=== PATIENT | male | born 1950 | race Caucasian/White ===

== ENCOUNTER 2019-02-16 18:37 | Inpatient (IN) | payer OTHER, BC ==
--- NOTE | 2019-02-16 19:11 | PDOC ---
History of Present Illness - General Chief Complaint: Altered Mental Status Stated Complaint: BLOOD SUGAR PROBLEM Time Seen by Provider: 02/16/19 19:11 History Source: Patient Exam Limitations: Clinical Condition - History of Present Illness Initial Comments: 68 year old male with PMH IDDM, CKD, CAD, obesity, bipolar disorder BIBA to ED after being found down for unknown amount of days. Pt is alert to person, able to tell me he is in pain, but cannot specify where, does not always answer questions when asked. PCP: Irasema Daniels ROS: unable to be performed 2/2 pt confusion PE Constitutional: Well-nourished, Well-developed, appearing stated age. HEENT: head is normocephalic, atraumatic. no scalp hematoma. EOMI. PERRLA. Neck: supple. Full ROM. no midline C-spine tenderness to palpation. Cardiovascular: regular heart rhythm. no murmurs. no pericardial friction rub. Respiratory: clear to auscultation bilaterally. no crackles, rhonchi or wheezing. no stridor. Gastrointestinal: soft, nontender. normal bowel sounds. no rebound, guarding, masses. Extremities: peripheral pulses intact. no lower extremity edema. Back: no midline t-spine or L-spine tenderness to palpation. Pelvis: no tenderness to bilateral hips. LE equal in length without external rotation. Neurological: CN 2-12 grossly intact. no facial drooping. 5/5 strength LLE. LLE drift hits the bed. RLE no effort againsty gravity. RUE no effort against gravity. Psych: awake, alert, oriented x1. follows simple commands. Skin: 4x4 cm necrotic circular pressure ulcer intergluteal area. skin abrasion to right forearm area. skin abrasion to left knee. necrotic ulcer to right hip. NIH Stroke Scale - Initial Evaluation Level of consciousness: Alert Ask patient the month and their age: Both incorrect Ask patient to open & close eyes; make fist and let go: Obeys both correctly Best gaze (horizontal eye movement): Normal Visual field testing: No visual field loss Facial paresis (Show teeth/raise eyebrows/close eyes tight): Normal symmetrical movement Motor Function: Left Arm: Normal Motor Function: Right Arm: No effort against gravity Motor Function: Left Leg: Drift Motor Function: Right Leg: No effort against gravity Limb Ataxia: No ataxia Sensory(Use pinprick test arms,legs,trunk,face/side to side): Severe to total sensory loss Best language (Describe picture, name items, read sentences): Severe aphasia Dysarthria (read several words): Mild to moderate slurring of words Extinction and Inattention: No abnormality - Total Score NIH Stroke Scale Score: 14 Past History - Past Medical History Allergies/Adverse Reactions: Allergies Allergy/AdvReac Type Severity Reaction Status Date / Time No Allergy Information Allergy Verified 02/16/19 19:16 Available Home Medications: Ambulatory Orders Allopurinol [Zyloprim -] 200 mg DAILY 02/17/19 Amlodipine Besylate 10 mg PO DAILY 02/17/19 Diazepam [Valium] 10 mg PO TID 02/17/19 Insulin Aspart [Novolog] 2 units TID 02/17/19 Insulin Glargine,Hum.rec.anlog [Toujeo Solostar] 95 unit HS 02/17/19 Lamotrigine 100 mg DAILY 02/17/19 Losartan/Hydrochlorothiazide [Losartan-Hctz 100-12.5 mg Tab] 1 tablet DAILY Quetiapine Fumarate [Seroquel -] 200 mg PO HS 02/17/19 - Psycho Social/Smoking Cessation Hx Smoking History: Unknown if ever smoked *Physical Exam - Vital Signs Last Vital Signs Temp Pulse Resp BP Pulse Ox 98.5 F 101 H 20 139/88 94 L 02/16/19 19:00 02/16/19 19:00 02/16/19 19:00 02/16/19 19:00 02/16/19 19:00 ED Treatment Course - LABORATORY CBC & Chemistry Diagram: 02/17/19 05:38 02/17/19 16:15 Medical Decision Making - Medical Decision Making 68 year old male with above PMH presented to ED via ambulance after being found down. Initial Vital Signs Temp Pulse Resp BP Pulse Ox 98.5 F 101 H 20 139/88 94 L 02/16/19 19:00 02/16/19 19:00 02/16/19 19:00 02/16/19 19:00 02/16/19 19:00 Afebrile. Tachycardia. No tachypnea. Hypertensive. Mild hypoxia on room air. Labs ordered: CBC, CMP, Mag, Phos, CK, Trop, PT/PTT/INR, T&S, ETOH, salicyclate , acetaminophen, Imaging ordered: CXR, PXR, CT head, CT cervical spine Medications ordered: normal saline 1000 cc once, tylenol IV EKG performed at 1925: rate 98. regular rhythm. normal axis. normal intervals. flipped T V6/II/III//aVL Would not give tpa, unknown time of onset. 02/16/19 20:31 Dr. Pollock from [facility] called to report negative for stroke or anything acute. 02/16/19 20:41 02/16/19 02/16/19 02/16/19 19:30 19:30 19:30 WBC 12.3 H RBC 5.54 Hgb 17.4 H Hct 53.5 H MCV 96.7 H MCH 31.5 MCHC 32.6 RDW 14.1 Plt Count 226 MPV 10.2 Absolute Neuts (auto) 11.0 H Neutrophils % 89.2 H Lymphocytes % 2.7 L Monocytes % 7.4 Eosinophils % 0.2 Basophils % 0.5 Nucleated RBC % 0 PT with INR 15.40 H INR 1.30 H PTT (Actin FS) 30.8 Lactic Acid 1.8 02/16/19 02/16/19 02/16/19 19:30 19:30 19:30 VBG pH 7.28 L POC VBG pCO2 41.3 POC VBG pO2 < 49 H VBG HCO3 18.8 L VBG O2 Sat (Tonny) 53.6 L VBG Base Excess -7.4 L Magnesium 4.7 H Salicylates < 1.7 L Leukocytosis with left shift. Metabolic acidosis. 02/16/19 20:49 Dr. Barrera consulted, recommended medical management, MRI. MRI ordered. 02/16/19 21:12 Ct cervical spine negative for acute fracture, dislocation. 02/16/19 21:15 CMP Sodium 145 mmol/L (136-145) 02/16/19 19:30 Potassium 5.6 mmol/L (3.5-5.1) H 02/16/19 19:30 Chloride 111 mmol/L (98-107) H 02/16/19 19:30 Carbon Dioxide 20 mmol/L (21-32) L 02/16/19 19:30 Anion Gap 15 MMOL/L (8-16) 02/16/19 19:30 BUN 272.9 mg/dL (7-18) H* 02/16/19 19:30 Creatinine 6.7 mg/dL (0.55-1.3) H 02/16/19 19:30 Est GFR (CKD-EPI)AfAm 9.01 02/16/19 19:30 Est GFR (CKD-EPI)NonAf 7.78 02/16/19 19:30 Random Glucose 381 mg/dL (74-106) H 02/16/19 19:30 Lactic Acid 1.8 mmol/L (0.4-2.0) 02/16/19 19:30 Calcium 9.5 mg/dL (8.5-10.1) 02/16/19 19:30 Phosphorus > 9.0 mg/dL (2.5-4.9) H* 02/16/19 19:30 Magnesium 4.7 mg/dL (1.8-2.4) H 02/16/19 19:30 Total Bilirubin 1.0 mg/dL (0.2-1) 02/16/19 19:30 AST 25 U/L (15-37) 02/16/19 19:30 ALT 32 U/L (13-61) 02/16/19 19:30 Alkaline Phosphatase 64 U/L (45-117) 02/16/19 19:30 Creatine Kinase > 1000 U/L (26-308) H 02/16/19 19:30 Troponin I 0.05 ng/ml (0.00-0.05) 02/16/19 19:30 Total Protein 6.6 g/dl (6.4-8.2) 02/16/19 19:30 Albumin 2.7 g/dl (3.4-5.0) L 02/16/19 19:30 Triglycerides 354 mg/dL (0-150) H 02/16/19 19:30 Cholesterol 227 mg/dL (50-200) H 02/16/19 19:30 Total LDL Cholesterol 143 mg/dL (5-100) H 02/16/19 19:30 HDL Cholesterol 37 mg/dL (40-60) L 02/16/19 19:30 Acute renal failure Rhabdomyolysis. Dr. Sd pearce. 02/16/19 21:38 Dr. Beaver recommended continued IVF hydration, Chou, repeat labs after next liter, trend CK, no dialysis now 2/2 volume down. 11/17/19 21:49 Pt failed dysphagia screening. ASA chew canceled. ASA 300 mg MA ordered. NPO Pt now in atrial fibrillation. EKG ordered. Medications ordered: Diltiazem 10 mg IV once, Diltiazem gtt, Heparin bolus, Heparin gtt -Pt is NPO so now needs drip for rate control Signout given to admitting team. EKG performed at 2051: rate 136, irregularly irregular rhythm, normal axis, nonspecific ST changes. 02/16/19 22:10 I spoke with [facility] CL[facility] in ICU, who accepted the patient for ICU. 02/16/19 23:37 2nd line placed in LUE by RN. 3rd line placed in RUE with US guidance by me. 02/17/19 00:03 VBG - pH improved from 7.28 to 7.31 02/17/19 00:22 HR 136 Diltiazem drip increased from 5 mg/hour to 10 mg/hour. 02/17/19 01:01 Diltiazem 15 mg IV push once given. CMP Sodium 147 mmol/L (136-145) H 02/16/19 22:51 Potassium 5.0 mmol/L (3.5-5.1) 02/16/19 22:51 Chloride 114 mmol/L (98-107) H 02/16/19 22:51 Carbon Dioxide 20 mmol/L (21-32) L 02/16/19 22:51 Anion Gap 13 MMOL/L (8-16) 02/16/19 22:51 BUN 255.5 mg/dL (7-18) H* 02/16/19 22:51 Creatinine 6.2 mg/dL (0.55-1.3) H 02/16/19 22:51 Est GFR (CKD-EPI)AfAm 9.90 02/16/19 22:51 Est GFR (CKD-EPI)NonAf 8.54 02/16/19 22:51 Random Glucose 347 mg/dL (74-106) H 02/16/19 22:51 Calcium 9.2 mg/dL (8.5-10.1) 02/16/19 22:51 Phosphorus 8.6 mg/dL (2.5-4.9) H 02/16/19 22:51 Magnesium 4.2 mg/dL (1.8-2.4) H 02/16/19 22:51 Creatine Kinase 1169 U/L (26-308) H 02/16/19 22:51 Troponin I 0.04 ng/ml (0.00-0.05) 02/16/19 22:51 Beta-Hydroxybutyrate 5.5 mg/dL (0.2-2.8) H 02/16/19 22:51 Discharge - Discharge Information Problems reviewed: Yes Clinical Impression/Diagnosis: Rhabdomyolysis, Stroke, Renal failure, Uremia, Leukocytosis Condition: Stable - Admission Yes - Follow up/Referral - Patient Discharge Instructions - Post Discharge Activity
[2019-02-16] MEDS ORDERED: SODIUM CHLORIDE 1,000 ML IV STA ×2 (19:13→21:23)
[2019-02-16] MEDS ORDERED: ACETAMINOPHEN 1000 MG/100 ML VIAL (NON FORMULARY) IVPB ONE (19:35)
[2019-02-16] MEDS ORDERED: ACETAMINOPHEN INJECTION 100 ML IVPB ONE (20:00)
[2019-02-16 20:01] LABS: BASO % 0.5 % (0-2.0); EOS % 0.2 % (0-4.5); HEMATOCRIT 53.5 % (35.4-49); HEMOGLOBIN 17.4 GM/dL (11.7-16.9); LYMPH % 2.7 % (8-40); MCH 31.5 pg (25.7-33.7); MCHC 32.6 g/dl (32.0-35.9); MEAN CELL VOLUME 96.7 fl (80-96); MEAN PLT VOLUME 10.2 fl (7.5-11.1); MONO % 7.4 % (3.8-10.2); NEUT % 89.2 % (42.8-82.8); PLATELET COUNT 226 K/MM3 (134-434); RBC 5.54 M/mm3 (4.00-5.60); RDW 14.1 % (11.9-15.9); WHITE BLOOD COUNT 12.3 K/mm3 (4.0-10.0)
[2019-02-16 20:03] LABS: VENOUS PC02 41.3 mmHg (38-52); VENOUS PH 7.28 (7.31-7.41)
[2019-02-16] MEDS ORDERED: BACITRACIN 0.9 GM PACKET ONE (20:07)
[2019-02-16 20:08] LABS: VENOUS PO2 < 49 mmHg (28-48)
[2019-02-16 20:20] LABS: MAGNESIUM 4.7 mg/dL (1.8-2.4)
[2019-02-16 20:21] LABS: INR 1.3 (0.83-1.09); PROTHROMBIN TIME (PATIENT) 15.4 SEC (9.7-13.0)
[2019-02-16 20:23] LABS: ACTIVATED PTT 30.8 SECONDS (25.2-36.5)
[2019-02-16] MEDS ORDERED: ASPIRIN 81 MG CHEWABLE TABLETS PO ONE (20:50)
[2019-02-16 20:56] LABS: ALBUMIN 2.7 g/dl (3.4-5.0); ALK PHOS 64 U/L (45-117); ANION GAP 15 MMOL/L (8-16); CALCIUM 9.5 mg/dL (8.5-10.1); CHLORIDE 111 mmol/L (98-107); CHOLESTEROL 227 mg/dL (50-200); CO2 20 mmol/L (21-32); CREATININE 6.7 mg/dL (0.55-1.3); GLUCOSE,RANDOM 381 mg/dL (74-106); HDL CHOLESTEROL 37 mg/dL (40-60); LDL CHOLESTEROL (ONLY SJRH) 143 mg/dL (5-100); POTASSIUM 5.6 mmol/L (3.5-5.1); SGOT/AST 25 U/L (15-37); SGPT/ALT 32 U/L (13-61); SODIUM 145 mmol/L (136-145); TOT PROT 6.6 g/dl (6.4-8.2); TRIGLYCERIDES 354 mg/dL (0-150)
[2019-02-16 20:58] LABS: BLOOD UREA NITROGEN 272.9 mg/dL (7-18); PHOSPHOROUS > 9.0 mg/dL (2.5-4.9)
[2019-02-16 21:18] LABS: PLATELET ESTIMATE ADEQUATE
[2019-02-16] MEDS ORDERED: ASPIRIN 81 MG CHEWABLE TABLETS ONE (21:41)
[2019-02-16] MEDS ORDERED: ASPIRIN 300 MG SUPP.RECT PR ONE (21:47)
[2019-02-16] MEDS ORDERED: dilTIAZem HCL 50 MG/10 ML - 10 ML VIAL IVPUSH ONE ×2 (22:07→23:58)
[2019-02-16] MEDS ORDERED: DILTIAZEM INJECTION 125 MG in SODIUM CHLORIDE 100 ML IVPB SCH (22:15)
--- NOTE | 2019-02-16 22:33 | PN ---
Teaching Attending Note Name of Resident: Anum Crow ATTENDING PHYSICIAN STATEMENT I saw and evaluated the patient. I reviewed the resident's note and discussed the case with the resident. I agree with the resident's findings and plan as documented. SUBJECTIVE: 68-year-old male with a history of hypertension insulin-dependent diabetes dyslipidemia and bipolar disorder brought into hospital by EMS after being found down on ground by family member at home. Patient was down for unknown length of time. Patient offers a very limited history at this time. OBJECTIVE: Last Vital Signs Temp Pulse Resp BP Pulse Ox 98.5 F 122 H 22 H 120/99 95 02/16/19 20:45 02/17/19 00:01 02/17/19 00:01 02/17/19 00:01 02/17/19 00:01 GENERAL: Morbidly obese, not in acute distress, appears comfortable HEENT: Normocephalic, atraumatic. PERRLA, EOMI. No conjunctival pallor. Sclera are non- icteric. Moist mucous membranes. Oropharynx is clear. NECK: Supple. Full ROM. No JVD. Carotid pulses 2+ and symmetric, without bruits. No thyromegaly. No lymphadenopathy. CARDIOVASCULAR: Regular rate and rhythm. No murmurs, rubs, or gallops. Distal pulses are 2+ and symmetric. PULMONARY: No evidence of respiratory distress. Lungs clear to auscultation bilaterally. No wheezing, rales or rhonchi. ABDOMINAL: Soft. Non-tender. Non-distended. No rebound or guarding. No organomegaly. Normoactive bowel sounds. MUSCULOSKELETAL Normal range of motion at all joints. No bony deformities or tenderness. No CVA tenderness. EXTREMITIES: No cyanosis. No clubbing. No edema. No calf tenderness. SKIN: Left knee abrasion, Intertrigo NEUROLOGICAL: Difficult to assess patient due to altered mental statuspatient is not oriented to place or time. Appears to have right upper and lower extremity weakness relative to left side however difficult to assess accurately. Follow some commands Abnormal Lab Results 02/16/19 02/16/19 02/16/19 19:30 19:30 19:30 WBC 12.3 H Hgb 17.4 H Hct 53.5 H MCV 96.7 H Absolute Neuts (auto) 11.0 H Neutrophils % 89.2 H Neutrophils % (Manual) 92.0 H Lymphocytes % 2.7 L Lymphocytes % (Manual) 4.0 L Monocytes % (Manual) 0 L PT with INR 15.40 H INR 1.30 H VBG pH POC VBG pCO2 POC VBG pO2 VBG HCO3 VBG O2 Sat (Tonny) VBG Base Excess Sodium Potassium 5.6 H Chloride 111 H Carbon Dioxide 20 L BUN 272.9 H* Creatinine 6.7 H Random Glucose 381 H Phosphorus > 9.0 H* Magnesium Creatine Kinase 1101 H CK-MB (CK-2) Total Protein Albumin 2.7 L Triglycerides 354 H Cholesterol 227 H Total LDL Cholesterol 143 H HDL Cholesterol 37 L Beta-Hydroxybutyrate Urine Protein Urine Glucose (UA) Urine Blood Ur Random Sodium Ur Random Chloride Salicylates 02/16/19 02/16/19 02/16/19 19:30 19:30 19:30 WBC Hgb Hct MCV Absolute Neuts (auto) Neutrophils % Neutrophils % (Manual) Lymphocytes % Lymphocytes % (Manual) Monocytes % (Manual) PT with INR INR VBG pH 7.28 L POC VBG pCO2 POC VBG pO2 < 49 H VBG HCO3 18.8 L VBG O2 Sat (Tonny) 53.6 L VBG Base Excess -7.4 L Sodium Potassium Chloride Carbon Dioxide BUN Creatinine Random Glucose Phosphorus Magnesium 4.7 H Creatine Kinase CK-MB (CK-2) Total Protein Albumin Triglycerides Cholesterol Total LDL Cholesterol HDL Cholesterol Beta-Hydroxybutyrate Urine Protein Urine Glucose (UA) Urine Blood Ur Random Sodium Ur Random Chloride Salicylates < 1.7 L 02/16/19 02/16/19 02/17/19 22:51 22:51 00:30 WBC Hgb Hct MCV Absolute Neuts (auto) Neutrophils % Neutrophils % (Manual) Lymphocytes % Lymphocytes % (Manual) Monocytes % (Manual) PT with INR INR VBG pH POC VBG pCO2 33.6 L POC VBG pO2 60.7 H VBG HCO3 16.4 L VBG O2 Sat (Tonny) 87.0 H VBG Base Excess -8.5 L Sodium 147 H Potassium Chloride 114 H Carbon Dioxide 20 L BUN 255.5 H* Creatinine 6.2 H Random Glucose 347 H Phosphorus 8.6 H Magnesium 4.2 H Creatine Kinase 1169 H CK-MB (CK-2) 4.1 H Total Protein Albumin Triglycerides Cholesterol Total LDL Cholesterol HDL Cholesterol Beta-Hydroxybutyrate 5.5 H Urine Protein 1+ H Urine Glucose (UA) 2+ H Urine Blood 3+ H Ur Random Sodium Ur Random Chloride Salicylates 02/17/19 02/17/19 00:30 00:36 WBC Hgb Hct MCV Absolute Neuts (auto) Neutrophils % Neutrophils % (Manual) Lymphocytes % Lymphocytes % (Manual) Monocytes % (Manual) PT with INR INR VBG pH POC VBG pCO2 POC VBG pO2 VBG HCO3 VBG O2 Sat (Tonny) VBG Base Excess Sodium 147 H Potassium 5.2 H Chloride 113 H Carbon Dioxide 20 L BUN 252.3 H* Creatinine 6.2 H Random Glucose 329 H Phosphorus Magnesium Creatine Kinase CK-MB (CK-2) Total Protein 5.8 L Albumin 2.3 L Triglycerides Cholesterol Total LDL Cholesterol HDL Cholesterol Beta-Hydroxybutyrate Urine Protein Urine Glucose (UA) Urine Blood Ur Random Sodium 35 L Ur Random Chloride 24 L Salicylates Imaging studies reviewed ASSESSMENT AND PLAN: Critically ill 68-year-old male with renal failure. Uncertain if acute or chronic as patient is here for the first time inpatient and there are no previous chemistry results for comparison. Unknown etiology at this time. Differential diagnosis includes prerenal cause And ATN secondary to rhabdo.Noted to have hyperphosphatemia, hyperkalemia, metabolic acidosis and altered mental status which are all likely secondary to underlying renal failure.Patient was thought to have right-sided weakness upon initial presentation and underwent head CT which was negative for any acute findings. Altered mental status may be secondary to uremia. CVA should be ruled out. Found to have atrial fibrillation on EKG suspected to be a new arrhythmia although cannot be certain at this time. Severe hyperglycemia with high anion gap metabolic acidosis and positive ketones and serum suggestive of DKA.Mild rhabdomyolysis as patient has been non-ground for some period time. Admit to ICU Renal was consulted alreadyrecommendations were appreciated Accurate I's and O's and daily weights Urine lites UA Chou catheter Avoid any nephrotoxins Phosphate binder Correct electrolyte derangements Renal sonogram Calcitriol #DKA Start insulin drip BGM q. one hour If dropping glucose below 200 g/dL would switch fluids to D5W half NS #Right-sided weakness N.p.o. Neurology evaluation Carotid duplex Transthoracic echo Consider brain MRI PT evaluation #Atrial fibrillation Start heparin drip If RVR would start on diltiazem drip Cardiology evaluation TSH Urine toxicology screen #Left knee abrasion Would administer Tdap 40 minutes spent caring for this critically ill patient
[2019-02-16] MEDS ORDERED: HEPARIN NA (PORCINE) 5,000 UNITS/ML 1ML VIAL IVPUSH PRN ×2 (22:49→22:51)
--- NOTE | 2019-02-16 22:53 | HP ---
CHIEF COMPLAINT: CVA PCP: unknown, psychiatrist Dr. Steve Navarro HISTORY OF PRESENT ILLNESS: Mr. Burnette is a 68 y/o man with a pmhx of kidney disease, DM, HTN, HLD, obesity, bipolar disorder, depression, and anxiety who is BIBA after being found down in his apt for an unknown period of time. History obtained from pt's brother as pt was confused on exam and was unable to answer questions. Per the patient's brother, the pt had an appointment with a friend today and when he did not show up the pt's friend called the police to do a wellness check (the pt did not name the friend). Police found the pt down in his apartment and he was brought to the hospital by EMS, unclear how long the pt was down for. Per the patient's brother, the pt is normally fully independent and able to complete all his ADLs unassisted. He lives alone in an apartment in [facility] and per the brother the pt keeps up with all his doctor appointments and takes his medications as prescribed. The pt's brother was unable to state what medicines his brother uses or which pharmacy his brother uses however states that his brother's psychiatrist is Dr. Steve Navarro and that he may know the answers to these questions. The brother reports he last saw the patient about 3 months ago. ER course was notable for: (1) EKG performed at 1924: rate 98. regular rhythm. normal axis. normal intervals. flipped T V6/II/III//aVL> EKG performed at 2051: rate 136, irregularly irregular rhythm, normal axis, nonspecific ST changes. (2) Pt failed dysphagia screening, ASA 300 MN given (3) Dr. Barrera consulted, appreciate recommendations, Dr. Beaver consulted recommends continued IVF hydration, Saez, repeat labs after next liter, no dialysis now 2/2 volume down Recent Travel: denies (per pt brother). PAST MEDICAL HISTORY: kidney disease, DM, HTN, HLD, obesity, bipolar disorder, depression, and anxiety PAST SURGICAL HISTORY: appendectomy when younger, no other sx per brother Social History: Per the patient's brother Smoking: denies Alcohol: denies Drugs: denies Allergies No Allergy Information Available Allergy (Verified 02/16/19 19:16) HOME MEDICATIONS: REVIEW OF SYSTEMS: UNABLE TO OBTAIN DUE TO PT'S MENTAL STATUS CONSTITUTIONAL: Absent: fever, chills, diaphoresis, generalized weakness, malaise, loss of appetite, weight change HEENT: Absent: rhinorrhea, nasal congestion, throat pain, throat swelling, difficulty swallowing, mouth swelling, ear pain, eye pain, visual changes CARDIOVASCULAR: Absent: chest pain, syncope, palpitations, irregular heart rate, lightheadedness , peripheral edema RESPIRATORY: Absent: cough, shortness of breath, dyspnea with exertion, orthopnea, wheezing, stridor, hemoptysis GASTROINTESTINAL: Absent: abdominal pain, abdominal distension, nausea, vomiting, diarrhea, constipation, melena, hematochezia GENITOURINARY: Absent: dysuria, frequency, urgency, hesitancy, hematuria, flank pain, genital pain MUSCULOSKELETAL: Absent: myalgia, arthralgia, joint swelling, back pain, neck pain SKIN: Absent: rash, itching, pallor HEMATOLOGIC/IMMUNOLOGIC: Absent: easy bleeding, easy bruising, lymphadenopathy, frequent infections ENDOCRINE: Absent: unexplained weight gain, unexplained weight loss, heat intolerance, cold intolerance NEUROLOGIC: Absent: headache, focal weakness or paresthesias, dizziness, unsteady gait, seizure, mental status changes, bladder or bowel incontinence PSYCHIATRIC: Absent: anxiety, depression, suicidal or homicidal ideation, hallucinations. PHYSICAL EXAMINATION Vital Signs - 24 hr 02/16/19 02/16/19 02/16/19 19:00 20:45 22:23 Temperature 98.5 F 98.5 F Pulse Rate 101 H Pulse Rate [ 92 H 59 L Left] Respiratory 20 20 26 H Rate Blood Pressure 139/88 Blood Pressure 185/150 H 111/83 [Left Arm] O2 Sat by Pulse 94 L 94 L 95 Oximetry (%) GENERAL: Awake, alert, and oriented only to self , in no acute distress. NIHSS at least 14 given his inability to state his age/ month, inability to move his R arm or leg, L leg drift, complete loss of sensation in R arm, aphasia, auditory and visual extinction/ inattention. He was unable to comply with EOM, visual field, ataxia, portions of the stroke scale because he was unable to follow all commands. HEAD: Normal with no signs of trauma. EYES: Pupils equal, round and reactive to light, extraocular movements intact, sclera anicteric, conjunctiva clear. No lid lag. EARS, NOSE, THROAT: Ears normal, nares patent, oropharynx clear without exudates. Extremely dry membranes with crusting around mouth. NECK: Normal range of motion, supple without lymphadenopathy, JVD, or masses. LUNGS: Breath sounds equal, clear to auscultation bilaterally. No wheezes, and no crackles. No accessory muscle use. HEART: Regular rate irregularly irregular rhythm, normal S1 and S2 without murmur. Ecchymosis noted on R side of chest. ABDOMEN: Soft, not distended, normoactive bowel sounds, skin breakdown on R side of abdomen with sloughing wounds and ecchymosis, very TTP, guarding, no rebound, no masses, reducible umbilical hernia. MUSCULOSKELETAL: Normal range of motion at all joints. No bony deformities or tenderness. DTRs symmetric in upper and lower extremities. UPPER EXTREMITIES: 2+ pulses, warm, well-perfused. No cyanosis. No clubbing. No peripheral edema. Cuts on bilateral elbows R>L. 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 Full strength in LUE. LOWER EXTREMITIES: 2+ pulses, warm, well-perfused. No calf tenderness. No peripheral edema. Cuts on bilateral knees/ dailey L>R. Pt unable to lift R leg from bed, pt can lift L leg however drifts down to bed during 5s hold. NEUROLOGICAL: unable to asess due to patient's mental status PSYCHIATRIC: Cooperative. poor eye contact. SKIN: +pressure ulcer to the right hip, skin breakdown to the right side of the abdomen, Abrasions to the right side of the face. Warm and dry. Laboratory Results - last 24 hr 02/16/19 02/16/19 02/16/19 19:30 19:30 19:30 WBC 12.3 H RBC 5.54 Hgb 17.4 H Hct 53.5 H MCV 96.7 H MCH 31.5 MCHC 32.6 RDW 14.1 Plt Count 226 MPV 10.2 Absolute Neuts (auto) 11.0 H Neutrophils % 89.2 H Neutrophils % (Manual) 92.0 H Band Neutrophils % 4.0 Lymphocytes % 2.7 L Lymphocytes % (Manual) 4.0 L Monocytes % 7.4 Monocytes % (Manual) 0 L Eosinophils % 0.2 Eosinophils % (Manual) 0.0 Basophils % 0.5 Basophils % (Manual) 0.0 Nucleated RBC % 0 Platelet Estimate Adequate PT with INR 15.40 H INR 1.30 H PTT (Actin FS) 30.8 VBG pH POC VBG pCO2 POC VBG pO2 VBG HCO3 VBG O2 Sat (Tonny) VBG Base Excess Sodium 145 Potassium 5.6 H Chloride 111 H Carbon Dioxide 20 L Anion Gap 15 BUN 272.9 H* Creatinine 6.7 H Est GFR (CKD-EPI)AfAm 9.01 Est GFR (CKD-EPI)NonAf 7.78 Random Glucose 381 H Lactic Acid Calcium 9.5 Phosphorus > 9.0 H* Magnesium Total Bilirubin 1.0 AST 25 ALT 32 Alkaline Phosphatase 64 Creatine Kinase 1101 H Creatine Kinase Index 0.2 CK-MB (CK-2) 2.7 Troponin I 0.05 Total Protein 6.6 Albumin 2.7 L Triglycerides 354 H Cholesterol 227 H Total LDL Cholesterol 143 H HDL Cholesterol 37 L Salicylates Acetaminophen Alcohol, Quantitative Blood Type Antibody Screen 02/16/19 02/16/19 02/16/19 19:30 19:30 19:30 WBC RBC Hgb Hct MCV MCH MCHC RDW Plt Count MPV Absolute Neuts (auto) Neutrophils % Neutrophils % (Manual) Band Neutrophils % Lymphocytes % Lymphocytes % (Manual) Monocytes % Monocytes % (Manual) Eosinophils % Eosinophils % (Manual) Basophils % Basophils % (Manual) Nucleated RBC % Platelet Estimate PT with INR INR PTT (Actin FS) VBG pH POC VBG pCO2 POC VBG pO2 VBG HCO3 VBG O2 Sat (Tonny) VBG Base Excess Sodium Potassium Chloride Carbon Dioxide Anion Gap BUN Creatinine Est GFR (CKD-EPI)AfAm Est GFR (CKD-EPI)NonAf Random Glucose Lactic Acid 1.8 Calcium Phosphorus Magnesium 4.7 H Total Bilirubin AST ALT Alkaline Phosphatase Creatine Kinase Creatine Kinase Index CK-MB (CK-2) Troponin I Total Protein Albumin Triglycerides Cholesterol Total LDL Cholesterol HDL Cholesterol Salicylates Acetaminophen Alcohol, Quantitative < 3.0 Blood Type A NEGATIVE Antibody Screen Negative 02/16/19 02/16/19 19:30 19:30 WBC RBC Hgb Hct MCV MCH MCHC RDW Plt Count MPV Absolute Neuts (auto) Neutrophils % Neutrophils % (Manual) Band Neutrophils % Lymphocytes % Lymphocytes % (Manual) Monocytes % Monocytes % (Manual) Eosinophils % Eosinophils % (Manual) Basophils % Basophils % (Manual) Nucleated RBC % Platelet Estimate PT with INR INR PTT (Actin FS) VBG pH 7.28 L POC VBG pCO2 41.3 POC VBG pO2 < 49 H VBG HCO3 18.8 L VBG O2 Sat (Tonny) 53.6 L VBG Base Excess -7.4 L Sodium Potassium Chloride Carbon Dioxide Anion Gap BUN Creatinine Est GFR (CKD-EPI)AfAm Est GFR (CKD-EPI)NonAf Random Glucose Lactic Acid Calcium Phosphorus Magnesium Total Bilirubin AST ALT Alkaline Phosphatase Creatine Kinase Creatine Kinase Index CK-MB (CK-2) Troponin I Total Protein Albumin Triglycerides Cholesterol Total LDL Cholesterol HDL Cholesterol Salicylates < 1.7 L Acetaminophen --noresult-- Alcohol, Quantitative Blood Type Antibody Screen Imaging: EXAM: CT head without contrast FINDINGS: There is cerebral atrophy. Chronic microvascular ischemic changes are noted. No acute intracranial hemorrhage or acute infarction. The visualized aspect of the paranasal sinuses and mastoid air cells are remarkable for moderate right maxillary chronic sinus changes and minimal left ethmoid and left sphenoid chronic sinus changes. No acute fracture. THIS DOCUMENT HAS BEEN ELECTRONICALLY SIGNED Ziyad Pollock MD 02/16/2019 20:26 EST M.D. EXAM: CT cervical spine without contrast Findings: Cervical spine demonstrates normal alignment. Moderate degenerative changes noted. No acute cervical spine fracture or dislocation. THIS DOCUMENT HAS BEEN ELECTRONICALLY SIGNED Ziyad Pollock MD 02/16/2019 20:45 ES ASSESSMENT/PLAN: Mr. Burnette is a 68 y/o man with a pmhx of kidney disease, DM, HTN, HLD, obesity , bipolar disorder, depression, and anxiety who is BIBA after being found down in his apt for an unknown period of time found to have new R sided weakness, NIHSS >14, in addition to SMITA on CKD and multiple electrolyte abnormalities being admitted for medical management and w/u of possible CVA in addition to tx for DKA and acute renal injury. 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 Pre-renal causes of SMITA include dehydration and rhabdomyolysis as pt was down in his home for unknown period of time, now with elevated CK and extremely dehydrated appearing on physical exam. Patient being aggressively hydrated Saez in place is making urine we will monitor strict I's and O's. Pt also noted to have hyperphosphatemia, hyperkalemia, metabolic acidosis and altered mental status which are likely 2/2 underlying renal failure. - IVF - UA - urine lytes - renal u/s - phoslo - calcitriol - saez - Avoid any nephrotoxins # Rhabdomyolysis- 2/2 being found down for unknown period of time - IVF - Trend CK # DKA- Severe hyperglycemia with high anion gap metabolic acidosis and positive ketones and serum suggestive of DKA. - BGM q1h - BMP q2h until gap closes - insulin drip @ 0.1u/kg/h - 2 large bore iv - IV 1/2NS @ 125 - If blood glucose is <250 and AG is not closed switch fluids to D5W 1/2NS - calcium gluconate 1000mg IVPB # AMS- Patient with AMS, R sided weakness, and aphasia on exam. Head CT is negative for any acute findings. Altered mental status may also be 2/2 to uremia. CVA should be ruled out. - MRI - echo - Carotid dopplers - Neuro consult, Dr. Barrera, appreciate recommendations> no acute intervention at this time, manage medically and obtain EKG - Speech pathology, appreciate reccs - fall precautions - NPO - PT eval # Afib - CHADSVASC 3, A. fib with RVR, suspected to be a new arrhythmia although cannot be certain at this time. - heparin drip - diltiazem drip for rate control - echo - cardiology consult - TSH - Utox # FEN: - IV 1/2 NS @125cc/h - monitor replete PRN - NPO while on insulin drip #PPx: - heparin drip # Dispo: admit to ICU pending closure of AG and d/c'ing insulin drip Visit type - Emergency Visit Emergency Visit: Yes ED Registration Date: 02/16/19 Care time: The patient presented to the Emergency Department on the above date and was hospitalized for further evaluation of their emergent condition. - New Patient This patient is new to me today: Yes Date on this admission: 02/17/19 - Critical Care Critical Care patient: No ATTENDING PHYSICIAN STATEMENT I saw and evaluated the patient. I reviewed the resident's note and discussed the case with the resident. I agree with the resident's findings and plan as documented. SUBJECTIVE: OBJECTIVE: ASSESSMENT AND PLAN:
[2019-02-16] MEDS ORDERED: HEPARIN NA (PORCINE) 5,000 UNITS/ML 1ML VIAL IVPUSH ONE (22:54)
[2019-02-16] MEDS ORDERED: HEPARIN - 25,000 UNIT in SODIUM CHLORIDE 495 ML IV SCH (23:00)
[2019-02-16] MEDS ORDERED: DIPHTH,PERTUSS(ACELL),TET 0.5 ML DISP.SYRIN IM ONE (23:12)
--- NOTE | 2019-02-16 23:13 | PDOC ---
Documentation entered by Mary Silver SCRIBE, acting as scribe for Figueroa Osborne MD. Figueroa Osborne MD: This documentation has been prepared by the maribelibeNadeem Lincy, SCRIBE, under my direction and personally reviewed by me in its entirety. I confirm that the documentation accurately reflects all work, treatment, procedures, and medical decision making performed by me. Attending Attestation - Resident Resident Name: Cele He - ED Attending Attestation I have performed the following: I have examined & evaluated the patient, The case was reviewed & discussed with the resident, I agree w/resident's findings & plan, Exceptions are as noted - HPI HPI: 02/16/19 19:31 The patient is a 68-year-old male pmh significant for HTN, IDDM, High chol, ? Bipolar, presents to the emergency department via EMS after family found the patient down for an unknown amount of time. The patient reports pain however, unable to specify where. Per the patient's brother at the bedside, The patient has a history of DM, Kidney issues (follows with a Button Sewer Hand at [facility], doesn't know the name), and psych issues. The brother reports he last saw the patient about 3 months ago. 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 - Physicial Exam PE: 02/16/19 19:59 Vitals: Triage vital signs reviewed General Appearance: No acute distress Head: Atraumatic Eyes: Pupils equal reactive round, extraocular movement intact Neck: Supple; No nuchal rigidity Chest Wall: Nontender Cardiac: Irregularly irregular Lungs: Clear to auscultation bilaterally, good air movement bilaterally Abdomen: Soft, nondistended, sore with skin breakdown to left abdomen. Extremities: +Patient is unable to move his right arm and leg. Patient is able to move his left arm and leg. no cyanosis, clubbing, or edema. Skin: +pressure ulcer to the right hip, skin breakdown to the right side of the abdomen, Abrasions to the right side of the face. Warm and dry. Neuro: AOX1; Unable to raise right arm and leg, follows commands. - Critical Care Time Total Critical Care Time: 90 Critical Care Statement: The care of this patient involved high complexity decision making to prevent further life threatening deterioration of the patient 's condition and/or to evaluate & treat vital organ system(s) failure or risk of failure. - Medical Decision Making 02/16/19 19:33 Plan: Type & Screen: Blood type: A- EKG: Labs. ABG Urine culture. CXR and Pelvis X-ray. EXAM: CT head without contrast FINDINGS: There is cerebral atrophy. Chronic microvascular ischemic changes are noted. No acute intracranial hemorrhage or acute infarction. The visualized aspect of the paranasal sinuses and mastoid air cells are remarkable for moderate right maxillary chronic sinus changes and minimal left ethmoid and left sphenoid chronic sinus changes. No acute fracture. THIS DOCUMENT HAS BEEN ELECTRONICALLY SIGNED Ziyad Pollock MD 02/16/2019 20:26 EST M.D. EXAM: CT cervical spine without contrast Findings: Cervical spine demonstrates normal alignment. Moderate degenerative changes noted. No acute cervical spine fracture or dislocation. THIS DOCUMENT HAS BEEN ELECTRONICALLY SIGNED Ziyad Pollock MD 02/16/2019 20:45 ES Patient last seen well several months ago appears to have been down on the ground for at least several days based on degree of ulcers and skin pressure ulcers to hip and side of abdomen patient unable to move right side upper extremity lower extremity against gravity history examination consistent with stroke at least 1 to 2 days old given degree of pressure ulcers Laboratory analysis notable for kidney failure likely secondary to dehydration patient being aggressively hydrated Chou in place is making urine we will monitor strict I's and O's Labs also notable for rhabdomyolysis secondary from patient being found down. Patient also found to be in A. fib with RVR patient given diltiazem bolus and placed on diltiazem drip and will place patient on heparin drip Patient to be admitted to ICU for further management Neurology has been consulted no acute intervention needed at this time NIHSS score 14. Unknown last normal. 02/17/19 07:16 02/17/19 07:17 Heart Score/ECG Review - ECG Impressions Comment:: 02/16/19 23:25 A. fib with RVR NIH Stroke Scale - Initial Evaluation Level of consciousness: Alert Ask patient the month and their age: Answers one correctly Ask patient to open & close eyes; make fist and let go: Obeys both correctly Best gaze (horizontal eye movement): Normal Visual field testing: No visual field loss Motor Function: Left Arm: Normal Motor Function: Right Arm: Some effort against gravity Motor Function: Left Leg: Drift Motor Function: Right Leg: Some effort against gravity Limb Ataxia: No ataxia Sensory(Use pinprick test arms,legs,trunk,face/side to side): Normal Best language (Describe picture, name items, read sentences): Mild to moderate aphasia Dysarthria (read several words): Mild to moderate slurring of words Extinction and Inattention: No abnormality
[2019-02-16] MEDS ORDERED: HEPARIN NA (PORCINE) 5,000 UNITS/ML 1ML VIAL ONE (23:34)
[2019-02-16] MEDS ORDERED: HEPARIN INFUSION - 25,000 UNITS/500 ML INFUS.BAG IVPB ONE (23:35)
[2019-02-16] MEDS ORDERED: SODIUM CHLORIDE 1,000 ML IV SCH (23:45)
[2019-02-16 23:53] LABS: VENOUS PC02 33.6 mmHg (38-52); VENOUS PH 7.31 (7.31-7.41); VENOUS PO2 60.7 mmHg (28-48)
[2019-02-17 00:51] LABS: CALCIUM 9.2 mg/dL (8.5-10.1); CREATININE 6.2 mg/dL (0.55-1.3); MAGNESIUM 4.2 mg/dL (1.8-2.4); PHOSPHOROUS 8.6 mg/dL (2.5-4.9)
[2019-02-17 00:53] LABS: BLOOD UREA NITROGEN 255.5 mg/dL (7-18)
[2019-02-17 01:14] LABS: EPI CELLS 2.3 /HPF (0-5/HPF); HYALINE CASTS 9 /lpf (0-8); URINE APPEARANCE CLOUDY; URINE BACTERIA 4.6 /hpf (NEGATIVE); URINE BILIRUBIN NEGATIVE (NEGATIVE); URINE COLOR YELLOW; URINE GLUCOSE (UA) 2+ (NEGATIVE); URINE KETONE NEGATIVE (NEGATIVE); URINE LEUK ESTERASE NEGATIVE (NEGATIVE); URINE NITRITE NEGATIVE (NEGATIVE); URINE PROTEIN 1+ (NEGATIVE); URINE RBC 85 /hpf (0-4); URINE UROBILINOGEN 0.2 mg/dL (0.2-1.0); URINE WBC 3 /hpf (0-5)
[2019-02-17] MEDS ORDERED: SODIUM CHLORIDE 1,000 ML IV SCH ×3 (01:45→02:25)
[2019-02-17 02:00] LABS: ALBUMIN 2.3 g/dl (3.4-5.0); BILIRUBIN,TOTAL 0.9 mg/dL (0.2-1); CALCIUM 8.9 mg/dL (8.5-10.1); CREATININE 6.2 mg/dL (0.55-1.3); POTASSIUM 5.2 mmol/L (3.5-5.1); TOT PROT 5.8 g/dl (6.4-8.2)
[2019-02-17 02:01] LABS: BLOOD UREA NITROGEN 252.3 mg/dL (7-18)
[2019-02-17] MEDS ORDERED: INSULIN REGULAR 100 UNITS in SODIUM CHLORIDE 99 ML IVPB SCH ×3 (02:30→12:45)
[2019-02-17 05:35] LABS: BLOOD UREA NITROGEN 204.9 mg/dL (7-18); POTASSIUM 3.9 mmol/L (3.5-5.1)
[2019-02-17 05:38] LABS: CALCIUM 6.2 mg/dL (8.5-10.1)
[2019-02-17 06:05] LABS: BASO % 0.3 % (0-2.0); EOS % 0.2 % (0-4.5); HEMATOCRIT 48.5 % (35.4-49); LYMPH % 3.6 % (8-40); MEAN CELL VOLUME 96.9 fl (80-96); MEAN PLT VOLUME 9.9 fl (7.5-11.1); MONO % 6.6 % (3.8-10.2); NEUT % 89.3 % (42.8-82.8); PLATELET COUNT 179 K/MM3 (134-434); RDW 14.3 % (11.9-15.9); WHITE BLOOD COUNT 10.5 K/mm3 (4.0-10.0)
[2019-02-17 06:08] LABS: INR 1.54 (0.83-1.09); PROTHROMBIN TIME (PATIENT) 18.3 SEC (9.7-13.0)
[2019-02-17 06:10] LABS: ACTIVATED PTT 43.1 SECONDS (25.2-36.5)
[2019-02-17] MEDS ORDERED: CALCIUM GLUCONATE 10% - 1,000 MG/10 ML VIAL IVPB ONE ×2 (06:12→09:49)
[2019-02-17] MEDS ORDERED: HEPARIN NA (PORCINE) 5,000 UNITS/ML 1ML VIAL ONE ×2 (06:22→17:16)
[2019-02-17] MEDS ORDERED: SODIUM CHLORIDE 0.45% 1,000 ML IV SCH ×2 (06:30→16:45)
[2019-02-17] MEDS ORDERED: DIPHTH,PERTUSS(ACELL),TET 0.5 ML DISP.SYRIN IM ONE (06:38)
[2019-02-17 06:52] LABS: ALBUMIN 2.2 g/dl (3.4-5.0); BILIRUBIN,TOTAL 0.8 mg/dL (0.2-1); CALCIUM 8.7 mg/dL (8.5-10.1); CREATININE 5.5 mg/dL (0.55-1.3); MAGNESIUM 3.9 mg/dL (1.8-2.4); PHOSPHOROUS 7.9 mg/dL (2.5-4.9); POTASSIUM 4.8 mmol/L (3.5-5.1); TOT PROT 5.6 g/dl (6.4-8.2)
[2019-02-17] MEDS ORDERED: CALCIUM GLUCONATE 10% - 1,000 MG/10 ML VIAL ONE (06:52)
[2019-02-17 06:54] LABS: BLOOD UREA NITROGEN 236.6 mg/dL (7-18)
[2019-02-17] MEDS ORDERED: INSULIN SLIDING SCALE (NOVOLOG) 1 VIAL SQ SCH (07:00)
[2019-02-17] MEDS: CALCIUM ACETATE 667 MG CAPSULE (FP) PO SCH ×3 (08:00→18:08)
--- NOTE | 2019-02-17 09:39 | CONSULT ---
Consult - text type - Consultation Consultation Note: Neurology CHIEF COMPLAINT: CVA PCP: unknown, psychiatrist Dr. Steve Navarro HISTORY OF PRESENT ILLNESS: Mr. Burnette is a 68 y/o man with a pmhx of kidney disease, DM, HTN, HLD, obesity, bipolar disorder, depression, and anxiety who is BIBA after being found down in his apt for an unknown period of time. History obtained from chart as pt was confused on exam and was unable to answer questions. Per the patient's brother, the pt had an appointment with a friend I gave admission and when he did not show up the pt's friend called the police to do a wellness check (the pt did not name the friend). Police found the pt down in his apartment and he was brought to the hospital by EMS, unclear how long the pt was down for. Per the patient's brother, the pt is normally fully independent and able to complete all his ADLs unassisted. He lives alone in an apartment in [facility] and per the brother the pt keeps up with all his doctor appointments and takes his medications as prescribed. The pt's brother was unable to state what medicines his brother uses or which pharmacy his brother uses however states that his brother's psychiatrist is Dr. Steve Navarro and that he may know the answers to these questions. The brother reports he last saw the patient about 3 months ago. I was contacted by the emergency department for further evaluation as the patient demonstrated an NIH stroke scale of 14. Time of onset was unknown and additionally patient with generalized confusion and weakness more so than just focal deficits and therefore concern for possible underlying toxic metabolic, infectious, diffuse process. CT head without acute changes but there was multiple metabolic derangements on lab work. White blood cell count was 12 on admission. BUN/ creatinine was 252//6.2 on admission. Lastly, blood glucose was 329 on admission. Arousable but still confused and moves extremities grossly during my evaluation but not participating in confrontation testing. Recent Travel: denies PAST MEDICAL HISTORY: kidney disease, DM, HTN, HLD, obesity, bipolar disorder, depression, and anxiety PAST SURGICAL HISTORY: appendectomy when younger, no other sx per brother Social History: Per the patient's brother Smoking: denies Alcohol: denies Drugs: denies Family: HTN Allergies No Allergy Information Available Allergy (Verified 11/17/19 19:16) Active Medications Calcitriol (Rocaltrol -) 0.25 mcg PO DAILY TAVARES Calcium Acetate (Phoslo -) 667 mg PO TIDCM TAVARES Chlorhexidine Gluconate (Hibiclens For Decolonization -) 1 applic TP HS TAVARES Clotrimazole (Lotrimin 1% Cream -) 1 applic TP BID TAVARES Diltiazem HCl 125 mg/ Sodium (Chloride) 125 mls @ 5 mls/hr IVPB TITR TAVARES; Protocol Last Titration: 02/17/19 06:32 Dose: 5 mg/hr, 5 mls/hr Heparin Sodium (Porcine) 25, (000 unit/ Sodium Chloride) 500 mls @ 20 mls/hr IV TITR TAVARES; Protocol Last Titration: 02/17/19 06:34 Dose: 1,100 unit/hr, 22 mls/hr Insulin Human Regular 100 (units/ Sodium Chloride) 100 mls @ 6.8 mls/hr IVPB TITR TAVARES; Protocol Last Admin: 02/17/19 03:20 Dose: 0.05 units/kg/hr, 6.8 mls/hr Sodium Chloride (1/2 Normal Saline) 1,000 mls @ 125 mls/hr IV ASDIR TAVARES Last Admin: 02/17/19 06:51 Dose: 125 mls/hr Mupirocin (Bactroban Ointment (For Decolonization) -) 1 applic NS BID TAVARES Stop: 02/22/19 09:59 REVIEW OF SYSTEMS: UNABLE TO OBTAIN DUE TO PT'S MENTAL STATUS PHYSICAL EXAMINATION Vital Signs Period Temp Pulse Resp BP Sys/Verdugo Pulse Ox Last 24 Hr 98.5 F-98.5 F 59-122 20-26 111-185/68-150 94-97 GENERAL: somnolent but arousable, inability to state his age/ month, , complete loss of sensation in R arm, aphasia, auditory and visual extinction/ inattention. He was unable to comply with EOM, visual field, ataxia, portions of the stroke scale because he was unable to follow all commands. HEAD: Normal with no signs of trauma. EYES: Pupils equal, round and reactive to light, extraocular movements intact, sclera anicteric, conjunctiva clear. No lid lag. EARS, NOSE, THROAT: Ears normal, nares patent, oropharynx clear without exudates. Extremely dry membranes with crusting around mouth. NECK: Normal range of motion, supple without lymphadenopathy, JVD, or masses. LUNGS: Breath sounds equal, clear to auscultation bilaterally. No wheezes, and no crackles. No accessory muscle use. HEART: Regular rate irregularly irregular rhythm, normal S1 and S2 without murmur. ABDOMEN: Soft, not distended, normoactive bowel sounds, skin breakdown on R side of abdomen with sloughing wounds and ecchymosis, very TTP, guarding, no rebound, no masses, reducible umbilical hernia. MUSCULOSKELETAL: Normal range of motion at all joints. No bony deformities or tenderness. UPPER EXTREMITIES: 2+ pulses, warm, well-perfused. No cyanosis. No clubbing. No peripheral edema. Cuts on bilateral elbows LOWER EXTREMITIES: 2+ pulses, warm, well-perfused. No calf tenderness. No peripheral edema. NEUROLOGICAL: somnolent but arousable, no cranial nerve deficits noted, Moves extremities ggrossly, sensory intact to light touch, not participating inconfrontation testing PSYCHIATRIC: Cooperative. poor eye contact. SKIN: +pressure ulcer to the right hip, skin breakdown to the right side of the abdomen, Abrasions to the right side of the face. Warm and dry. CBCD WBC 10.5 K/mm3 (4.0-10.0) H 02/17/19 05:38 RBC 5.00 M/mm3 (4.00-5.60) 02/17/19 05:38 Hgb 16.0 GM/dL (11.7-16.9) 02/17/19 05:38 Hct 48.5 % (35.4-49) 02/17/19 05:38 MCV 96.9 fl (80-96) H 02/17/19 05:38 MCHC 33.0 g/dl (32.0-35.9) 02/17/19 05:38 RDW 14.3 % (11.9-15.9) 02/17/19 05:38 Plt Count 179 K/MM3 (134-434) D 02/17/19 05:38 MPV 9.9 fl (7.5-11.1) 02/17/19 05:38 CMP Sodium 164 mmol/L (136-145) H* 02/17/19 08:25 Potassium 2.9 mmol/L (3.5-5.1) L* 02/17/19 08:25 Chloride 138 mmol/L (98-107) H 02/17/19 08:25 Carbon Dioxide 16 mmol/L (21-32) L 02/17/19 08:25 Anion Gap 11 MMOL/L (8-16) 02/17/19 08:25 BUN 165.9 mg/dL (7-18) H* 02/17/19 08:25 Creatinine 3.0 mg/dL (0.55-1.3) H 02/17/19 08:25 Random Glucose 96 mg/dL (74-106) 02/17/19 08:25 Calcium 5.5 mg/dL (8.5-10.1) L* 02/17/19 08:25 Total Bilirubin 0.8 mg/dL (0.2-1) 02/17/19 05:38 AST 35 U/L (15-37) 02/17/19 05:38 ALT 30 U/L (13-61) 02/17/19 05:38 Alkaline Phosphatase 55 U/L (45-117) 02/17/19 05:38 Total Protein 5.6 g/dl (6.4-8.2) L 02/17/19 05:38 Albumin 2.2 g/dl (3.4-5.0) L 02/17/19 05:38 CARDIAC ENZYMES Creatine Kinase 1169 U/L (26-308) H 02/16/19 22:51 Troponin I 0.04 ng/ml (0.00-0.05) 02/16/19 22:51 Imaging: EXAM: CT head without contrast FINDINGS: There is cerebral atrophy. Chronic microvascular ischemic changes are noted. No acute intracranial hemorrhage or acute infarction. The visualized aspect of the paranasal sinuses and mastoid air cells are remarkable for moderate right maxillary chronic sinus changes and minimal left ethmoid and left sphenoid chronic sinus changes. No acute fracture. EXAM: CT cervical spine without contrast Findings: Cervical spine demonstrates normal alignment. Moderate degenerative changes noted. No acute cervical spine fracture or dislocation. ASSESSMENT/PLAN: Mr. Burnette is a 68 y/o man with a pmhx of kidney disease, DM, HTN, HLD, obesity , bipolar disorder, depression, and anxiety who is BIBA after being found down in his apt for an unknown period of time. History obtained from chart as pt was confused on exam and was unable to answer questions. Per the patient's brother, the pt had an appointment with a friend I gave admission and when he did not show up the pt's friend called the police to do a wellness check (the pt did not name the friend). Police found the pt down in his apartment and he was brought to the hospital by EMS, unclear how long the pt was down for. Per the patient's brother, the pt is normally fully independent and able to complete all his ADLs unassisted. He lives alone in an apartment in [facility] and per the brother the pt keeps up with all his doctor appointments and takes his medications as prescribed. The pt's brother was unable to state what medicines his brother uses or which pharmacy his brother uses however states that his brother's psychiatrist is Dr. Steve Navarro and that he may know the answers to these questions. The brother reports he last saw the patient about 3 months ago. I was contacted by the emergency department for further evaluation as the patient demonstrated an NIH stroke scale of 14. Time of onset was unknown and additionally patient with generalized confusion and weakness more so than just focal deficits and therefore concern for possible underlying toxic metabolic, infectious, diffuse process. CT head without acute changes but there was multiple metabolic derangements on lab work. White blood cell count was 12 on admission. BUN/creatinine was 252//6.2 on admission. Lastly, blood glucose was 329 on admission. Arousable but still confused and moves extremities grossly during my evaluation but not participating in confrontation testing. Would benefit from MRI brain to rule out CVA this seems more to be a diffuse generalized process and requires further medical optimization. ddiabetic ketoacidosis, monitor glucose, maintain euglycemic range. Monitor electrolytes , follow-up recommendations from nephrology, IV hydration as tolerated, correct derangments. Monitor blood pressure, maintain less than 160/90. Follow up cultures. Wound care. Consider ICU level of monitoring if needed, defer to primary team. DVT ppx, requent reorientation. monitor atrial fibrillation, cardiology follow-up
[2019-02-17 09:42] LABS: BLOOD UREA NITROGEN 165.9 mg/dL (7-18); CALCIUM 5.5 mg/dL (8.5-10.1); POTASSIUM 2.9 mmol/L (3.5-5.1)
[2019-02-17] MEDS ORDERED: dilTIAZem HCL 30 MG TABLET (FP) PO ONE (09:56)
--- NOTE | 2019-02-17 09:59 | EKG ---
Test Reason : Blood Pressure : / mmHG Vent. Rate : 074 BPM Atrial Rate : 074 BPM P-R Int : 174 ms QRS Dur : 080 ms QT Int : 374 ms P-R-T Axes : 040 042 133 degrees QTc Int : 415 ms SINUS RHYTHM LOW VOLTAGE QRS SEPTAL INFARCT (CITED ON OR BEFORE 16-FEB-2019) T WAVE ABNORMALITY, CONSIDER LATERAL ISCHEMIA ABNORMAL ECG WHEN COMPARED WITH ECG OF 16-FEB-2019 21:52, SINUS RHYTHM HAS REPLACED ATRIAL FIBRILLATION VENT. RATE HAS DECREASED BY 62 BPM Confirmed by ANNAMARIA CHACON MD ([id number]) on 02/17/2019 9:59:22 AM Referred By: Confirmed By:ANNAMARIA CHACON MD
--- NOTE | 2019-02-17 10:03 | EKG ---
Test Reason : Blood Pressure : / mmHG Vent. Rate : 136 BPM Atrial Rate : 288 BPM P-R Int : 000 ms QRS Dur : 102 ms QT Int : 306 ms P-R-T Axes : 000 052 221 degrees QTc Int : 460 ms ATRIAL FIBRILLATION WITH RAPID VENTRICULAR RESPONSE SEPTAL INFARCT (CITED ON OR BEFORE 16-FEB-2019) ABNORMAL ECG WHEN COMPARED WITH ECG OF 16-FEB-2019 19:25, ATRIAL FIBRILLATION HAS REPLACED SINUS RHYTHM VENT. RATE HAS INCREASED Confirmed by ANNAMARIA CHACON MD ([id number]) on 02/17/2019 10:02:30 AM Referred By: Confirmed By:ANNAMARIA CHACON MD
--- NOTE | 2019-02-17 10:04 | EKG ---
Test Reason : Blood Pressure : / mmHG Vent. Rate : 098 BPM Atrial Rate : 098 BPM P-R Int : 176 ms QRS Dur : 086 ms QT Int : 332 ms P-R-T Axes : 044 044 159 degrees QTc Int : 423 ms SINUS RHYTHM WITH PREMATURE ATRIAL COMPLEXES POSSIBLE LEFT ATRIAL ENLARGEMENT SEPTAL INFARCT , AGE UNDETERMINED ABNORMAL ECG NO PREVIOUS ECGS AVAILABLE Confirmed by ANNAMARIA CHACON MD ([id number]) on 02/17/2019 10:03:51 AM Referred By: Confirmed By:ANNAMARIA CHACON MD
[2019-02-17] MEDS ORDERED: HEPARIN NA (PORCINE) 5,000 UNITS/ML 1ML VIAL IVPUSH PRN (10:12)
[2019-02-17] MEDS ORDERED: DEXTROSE 5%-WATER - 1,000 ML with POTASSIUM CHLORIDE 40 MEQ IV SCH (10:15)
[2019-02-17] MEDS ORDERED: HEPARIN INFUSION - 25,000 UNITS/500 ML INFUS.BAG IVPB ONE ×2 (10:15→10:16)
[2019-02-17] MEDS: HEPARIN INFUSION - 25,000 UNITS/500 ML INFUS.BAG IVPB SCH (10:30)
[2019-02-17 10:45] LABS: ARTERIAL BLD GAS O2 SATURATION 96.1 % (95-98); ARTERIAL BLOOD GAS BASE EXCESS -6.8 meq/l (-2-2); ARTERIAL BLOOD GAS PCO2 36.6 mmHg (35-45); ARTERIAL BLOOD GAS PO2 90.7 mmHg (80-100); ARTERIAL BLOOD GAS pH 7.32 (7.35-7.45)
[2019-02-17 10:46] LABS: ALLENS TEST POSITIVE
--- NOTE | 2019-02-17 10:47 | CON.CARD ---
Consult Consult Specialty:: Cardiology Referred by:: Dr. Thomson Reason for Consultation:: Cardiac evaluation - History of Present Illness Chief Complaint: ? Syncope History of Present Illness: Patient is a 68 year old male with underlying history of CKD, DM, HTN, hypercholesterolemia, biplolar disorder, depression and anxiety, currently appears disheveled BIBA after being found face down ont he floor of his apartment. It is unclear how long he has been found down in his residence. History was obtained from medical records as he is not able to give a proper history due to his underlying confusion. He has been normally fully independent and takes all his medications prescribed according to his brother. He also has a psychiatrist. Currently, he was also found tieh leukocytosis and renal failure with Cr elevated to 6.2, BUN 252. He is arousable but confused. CK was elevated to 1169. - History Source History Provided By: Family Member, Medical Record Limitations to Obtaining History: Clinical Condition - Past Medical History Cardio/Vascular: Yes: HTN, Hyperlipdemia Psych: Yes: Bipolar, Depression Endocrine: Yes: Diabetes Mellitus - Past Surgical History Past Surgical History: Yes: Appendectomy - Smoking History Smoking history: Unknown if ever smoked Home Medications - Allergies Allergies/Adverse Reactions: Allergies Allergy/AdvReac Type Severity Reaction Status Date / Time No Allergy Information Allergy Verified 02/16/19 19:16 Available - Home Medications Home Medications: Ambulatory Orders Unobtainable 02/17/19 Family Medical History Family History: Unable to Obtain Review of Systems Unable to obtain ROS, reason: Unable to obtain Vital Signs: Vital Signs Temperature 98.5 F 02/16/19 20:45 Pulse Rate 65 02/17/19 09:50 Respiratory Rate 20 02/17/19 09:50 Blood Pressure 122/59 L 02/17/19 09:50 O2 Sat by Pulse Oximetry (%) 95 02/17/19 09:50 Neck: Yes: Supple Respiratory: Yes: Diminished Gastrointestinal: Yes: Normal Bowel Sounds, Soft. No: Tenderness Cardiovascular: Yes: Regular Rate and Rhythm JVD: No PMI: Non-Displaced Heart Sounds: Yes: S1, S2 Murmur: Yes: Systolic Murmur, Grade 1 Edema: No - Other Data Labs, Other Data: CBC, BMP 02/17/19 05:38 02/17/19 08:25 INR, PTT INR 1.54 (0.83-1.09) H 02/17/19 05:13 Troponin, BNP 02/16/19 02/16/19 02/16/19 19:30 22:51 22:51 Troponin I 0.05 0.04 Cancelled 02/16/19 22:51 Troponin I Cancelled Laboratory Results - last 24 hr 02/16/19 02/16/19 02/16/19 19:30 19:30 19:30 WBC 12.3 H RBC 5.54 Hgb 17.4 H Hct 53.5 H MCV 96.7 H MCH 31.5 MCHC 32.6 RDW 14.1 Plt Count 226 MPV 10.2 Absolute Neuts (auto) 11.0 H Neutrophils % 89.2 H Neutrophils % (Manual) 92.0 H Band Neutrophils % 4.0 Lymphocytes % 2.7 L Lymphocytes % (Manual) 4.0 L Monocytes % 7.4 Monocytes % (Manual) 0 L Eosinophils % 0.2 Eosinophils % (Manual) 0.0 Basophils % 0.5 Basophils % (Manual) 0.0 Nucleated RBC % 0 Platelet Estimate Adequate PT with INR 15.40 H INR 1.30 H PTT (Actin FS) 30.8 Anticoagulation Therapy Puncture Site ABG pH ABG pCO2 at Pt Temp ABG pO2 at Pt Temp ABG HCO3 ABG O2 Sat (Measured) ABG O2 Content ABG Base Excess Santi Test VBG pH POC VBG pCO2 POC VBG pO2 VBG HCO3 VBG O2 Sat (Tonny) VBG Base Excess O2 Delivery Device Oxygen Flow Rate Vent Mode Vent Rate Mechanical Rate Pressure Support Vent Sodium 145 Potassium 5.6 H Chloride 111 H Carbon Dioxide 20 L Anion Gap 15 BUN 272.9 H* Creatinine 6.7 H Est GFR (CKD-EPI)AfAm 9.01 Est GFR (CKD-EPI)NonAf 7.78 POC Glucometer Random Glucose 381 H Hemoglobin A1c % Lactic Acid Calcium 9.5 Phosphorus > 9.0 H* Magnesium Total Bilirubin 1.0 AST 25 ALT 32 Alkaline Phosphatase 64 Creatine Kinase 1101 H Creatine Kinase Index Cancelled CK-MB (CK-2) Cancelled Troponin I 0.05 Total Protein 6.6 Albumin 2.7 L Triglycerides 354 H Cholesterol 227 H Total LDL Cholesterol 143 H HDL Cholesterol 37 L Beta-Hydroxybutyrate TSH Urine Color Urine Appearance Urine pH Ur Specific [place] Urine Protein Urine Glucose (UA) Urine Ketones Urine Blood Urine Nitrite Urine Bilirubin Urine Urobilinogen Ur Leukocyte Esterase Urine WBC (Auto) Urine RBC (Auto) Urine Casts (Auto) U Epithel Cells (Auto) Urine Bacteria (Auto) Urine Osmolality Ur Random Sodium Ur Random Potassium Ur Random Chloride Salicylates Acetaminophen Alcohol, Quantitative B-Hydroxybutyrate Blood Type Antibody Screen 02/16/19 02/16/19 02/16/19 19:30 22:51 22:51 WBC RBC Hgb Hct MCV MCH MCHC RDW Plt Count MPV Absolute Neuts (auto) Neutrophils % Neutrophils % (Manual) Band Neutrophils % Lymphocytes % Lymphocytes % (Manual) Monocytes % Monocytes % (Manual) Eosinophils % Eosinophils % (Manual) Basophils % Basophils % (Manual) Nucleated RBC % Platelet Estimate PT with INR INR PTT (Actin FS) Anticoagulation Therapy Puncture Site ABG pH ABG pCO2 at Pt Temp ABG pO2 at Pt Temp ABG HCO3 ABG O2 Sat (Measured) ABG O2 Content ABG Base Excess Santi Test VBG pH POC VBG pCO2 POC VBG pO2 VBG HCO3 VBG O2 Sat (Tonny) VBG Base Excess O2 Delivery Device Oxygen Flow Rate Vent Mode Vent Rate Mechanical Rate Pressure Support Vent Sodium 147 H Potassium 5.0 Chloride 114 H Carbon Dioxide 20 L Anion Gap 13 BUN 255.5 H* Creatinine 6.2 H Est GFR (CKD-EPI)AfAm 9.90 Est GFR (CKD-EPI)NonAf 8.54 POC Glucometer Random Glucose 347 H Hemoglobin A1c % Lactic Acid Calcium 9.2 Phosphorus 8.6 H Magnesium 4.2 H Total Bilirubin AST ALT Alkaline Phosphatase Creatine Kinase 1169 H Cancelled Creatine Kinase Index Cancelled 0.3 CK-MB (CK-2) Cancelled 4.1 H Troponin I 0.04 Cancelled Total Protein Albumin Triglycerides Cholesterol Total LDL Cholesterol HDL Cholesterol Beta-Hydroxybutyrate 5.5 H TSH Urine Color Urine Appearance Urine pH Ur Specific [place] Urine Protein Urine Glucose (UA) Urine Ketones Urine Blood Urine Nitrite Urine Bilirubin Urine Urobilinogen Ur Leukocyte Esterase Urine WBC (Auto) Urine RBC (Auto) Urine Casts (Auto) U Epithel Cells (Auto) Urine Bacteria (Auto) Urine Osmolality Ur Random Sodium Ur Random Potassium Ur Random Chloride Salicylates Acetaminophen Alcohol, Quantitative B-Hydroxybutyrate Blood Type Antibody Screen 02/17/19 02/17/19 02/17/19 00:30 00:30 00:30 WBC RBC Hgb Hct MCV MCH MCHC RDW Plt Count MPV Absolute Neuts (auto) Neutrophils % Neutrophils % (Manual) Band Neutrophils % Lymphocytes % Lymphocytes % (Manual) Monocytes % Monocytes % (Manual) Eosinophils % Eosinophils % (Manual) Basophils % Basophils % (Manual) Nucleated RBC % Platelet Estimate PT with INR INR PTT (Actin FS) Anticoagulation Therapy Puncture Site ABG pH ABG pCO2 at Pt Temp ABG pO2 at Pt Temp ABG HCO3 ABG O2 Sat (Measured) ABG O2 Content ABG Base Excess Santi Test VBG pH POC VBG pCO2 POC VBG pO2 VBG HCO3 VBG O2 Sat (Tonny) VBG Base Excess O2 Delivery Device Oxygen Flow Rate Vent Mode Vent Rate Mechanical Rate Pressure Support Vent Sodium Potassium Chloride Carbon Dioxide Anion Gap BUN Creatinine Est GFR (CKD-EPI)AfAm Est GFR (CKD-EPI)NonAf POC Glucometer Random Glucose Hemoglobin A1c % Lactic Acid Calcium Phosphorus Magnesium Total Bilirubin AST ALT Alkaline Phosphatase Creatine Kinase Creatine Kinase Index CK-MB (CK-2) Troponin I Total Protein Albumin Triglycerides Cholesterol Total LDL Cholesterol HDL Cholesterol Beta-Hydroxybutyrate TSH Urine Color Yellow Urine Appearance Cloudy Urine pH 5.0 Ur Specific [place] 1.018 Urine Protein 1+ H Urine Glucose (UA) 2+ H Urine Ketones Negative Urine Blood 3+ H Urine Nitrite Negative Urine Bilirubin Negative Urine Urobilinogen 0.2 Ur Leukocyte Esterase Negative Urine WBC (Auto) 3 Urine RBC (Auto) 85 Urine Casts (Auto) 9 U Epithel Cells (Auto) 2.3 Urine Bacteria (Auto) 4.6 Urine Osmolality 571 Ur Random Sodium 35 L Ur Random Potassium 31.0 Ur Random Chloride 24 L Salicylates Acetaminophen Alcohol, Quantitative B-Hydroxybutyrate Blood Type Antibody Screen 02/17/19 02/17/19 02/17/19 00:36 03:57 05:00 WBC RBC Hgb Hct MCV MCH MCHC RDW Plt Count MPV Absolute Neuts (auto) Neutrophils % Neutrophils % (Manual) Band Neutrophils % Lymphocytes % Lymphocytes % (Manual) Monocytes % Monocytes % (Manual) Eosinophils % Eosinophils % (Manual) Basophils % Basophils % (Manual) Nucleated RBC % Platelet Estimate PT with INR INR PTT (Actin FS) Anticoagulation Therapy Puncture Site ABG pH ABG pCO2 at Pt Temp ABG pO2 at Pt Temp ABG HCO3 ABG O2 Sat (Measured) ABG O2 Content ABG Base Excess Santi Test VBG pH POC VBG pCO2 POC VBG pO2 VBG HCO3 VBG O2 Sat (Tonny) VBG Base Excess O2 Delivery Device Oxygen Flow Rate Vent Mode Vent Rate Mechanical Rate Pressure Support Vent Sodium 147 H 156 H Potassium 5.2 H 3.9 Chloride 113 H 128 H Carbon Dioxide 20 L 18 L Anion Gap 14 9 BUN 252.3 H* 204.9 H* Creatinine 6.2 H 4.0 H Est GFR (CKD-EPI)AfAm 9.90 16.82 Est GFR (CKD-EPI)NonAf 8.54 14.51 POC Glucometer 297 Random Glucose 329 H 219 H Hemoglobin A1c % Lactic Acid Calcium 8.9 6.2 L* Phosphorus Magnesium Total Bilirubin 0.9 AST 29 ALT 32 Alkaline Phosphatase 59 Creatine Kinase Creatine Kinase Index CK-MB (CK-2) Troponin I Total Protein 5.8 L Albumin 2.3 L Triglycerides Cholesterol Total LDL Cholesterol HDL Cholesterol Beta-Hydroxybutyrate TSH Urine Color Urine Appearance Urine pH Ur Specific [place] Urine Protein Urine Glucose (UA) Urine Ketones Urine Blood Urine Nitrite Urine Bilirubin Urine Urobilinogen Ur Leukocyte Esterase Urine WBC (Auto) Urine RBC (Auto) Urine Casts (Auto) U Epithel Cells (Auto) Urine Bacteria (Auto) Urine Osmolality Ur Random Sodium Ur Random Potassium Ur Random Chloride Salicylates Acetaminophen Alcohol, Quantitative B-Hydroxybutyrate Blood Type Antibody Screen 02/17/19 02/17/19 02/17/19 05:13 05:38 05:38 WBC 10.5 H RBC 5.00 Hgb 16.0 Hct 48.5 MCV 96.9 H MCH 32.0 MCHC 33.0 RDW 14.3 Plt Count 179 D MPV 9.9 Absolute Neuts (auto) 9.4 H Neutrophils % 89.3 H Neutrophils % (Manual) Band Neutrophils % Lymphocytes % 3.6 L D Lymphocytes % (Manual) Monocytes % 6.6 Monocytes % (Manual) Eosinophils % 0.2 Eosinophils % (Manual) Basophils % 0.3 Basophils % (Manual) Nucleated RBC % 0 Platelet Estimate PT with INR 18.30 H INR 1.54 H PTT (Actin FS) 43.1 H Anticoagulation Therapy Puncture Site ABG pH ABG pCO2 at Pt Temp ABG pO2 at Pt Temp ABG HCO3 ABG O2 Sat (Measured) ABG O2 Content ABG Base Excess Santi Test VBG pH POC VBG pCO2 POC VBG pO2 VBG HCO3 VBG O2 Sat (Tonny) VBG Base Excess O2 Delivery Device Oxygen Flow Rate Vent Mode Vent Rate Mechanical Rate Pressure Support Vent Sodium 150 H Potassium 4.8 Chloride 122 H Carbon Dioxide 17 L Anion Gap 11 BUN 236.6 H* Creatinine 5.5 H Est GFR (CKD-EPI)AfAm 11.44 Est GFR (CKD-EPI)NonAf 9.87 POC Glucometer Random Glucose 264 H Hemoglobin A1c % Lactic Acid Calcium 8.7 Phosphorus 7.9 H Magnesium 3.9 H Total Bilirubin 0.8 AST 35 ALT 30 Alkaline Phosphatase 55 Creatine Kinase Creatine Kinase Index CK-MB (CK-2) Troponin I Total Protein 5.6 L Albumin 2.2 L Triglycerides Cholesterol Total LDL Cholesterol HDL Cholesterol Beta-Hydroxybutyrate TSH 2.89 D Urine Color Urine Appearance Urine pH Ur Specific [place] Urine Protein Urine Glucose (UA) Urine Ketones Urine Blood Urine Nitrite Urine Bilirubin Urine Urobilinogen Ur Leukocyte Esterase Urine WBC (Auto) Urine RBC (Auto) Urine Casts (Auto) U Epithel Cells (Auto) Urine Bacteria (Auto) Urine Osmolality Ur Random Sodium Ur Random Potassium Ur Random Chloride Salicylates Acetaminophen Alcohol, Quantitative B-Hydroxybutyrate Blood Type Antibody Screen 02/17/19 02/17/19 02/17/19 08:25 08:25 09:50 WBC RBC Hgb Hct MCV MCH MCHC RDW Plt Count MPV Absolute Neuts (auto) Neutrophils % Neutrophils % (Manual) Band Neutrophils % Lymphocytes % Lymphocytes % (Manual) Monocytes % Monocytes % (Manual) Eosinophils % Eosinophils % (Manual) Basophils % Basophils % (Manual) Nucleated RBC % Platelet Estimate PT with INR INR PTT (Actin FS) Anticoagulation Therapy Puncture Site ABG pH ABG pCO2 at Pt Temp ABG pO2 at Pt Temp ABG HCO3 ABG O2 Sat (Measured) ABG O2 Content ABG Base Excess Santi Test VBG pH POC VBG pCO2 POC VBG pO2 VBG HCO3 VBG O2 Sat (Tonny) VBG Base Excess O2 Delivery Device Oxygen Flow Rate Vent Mode Vent Rate Mechanical Rate Pressure Support Vent Sodium 164 H* Potassium 2.9 L* Chloride 138 H Carbon Dioxide 16 L Anion Gap 11 BUN 165.9 H* Creatinine 3.0 H Est GFR (CKD-EPI)AfAm 23.81 Est GFR (CKD-EPI)NonAf 20.54 POC Glucometer 112 Random Glucose 96 Hemoglobin A1c % 6.3 Lactic Acid Calcium 5.5 L* Phosphorus Magnesium Total Bilirubin AST ALT Alkaline Phosphatase Creatine Kinase Creatine Kinase Index CK-MB (CK-2) Troponin I Total Protein Albumin Triglycerides Cholesterol Total LDL Cholesterol HDL Cholesterol Beta-Hydroxybutyrate TSH Urine Color Urine Appearance Urine pH Ur Specific [place] Urine Protein Urine Glucose (UA) Urine Ketones Urine Blood Urine Nitrite Urine Bilirubin Urine Urobilinogen Ur Leukocyte Esterase Urine WBC (Auto) Urine RBC (Auto) Urine Casts (Auto) U Epithel Cells (Auto) Urine Bacteria (Auto) Urine Osmolality Ur Random Sodium Ur Random Potassium Ur Random Chloride Salicylates Acetaminophen Alcohol, Quantitative B-Hydroxybutyrate Blood Type Antibody Screen 02/17/19 10:32 WBC RBC Hgb Hct MCV MCH MCHC RDW Plt Count MPV Absolute Neuts (auto) Neutrophils % Neutrophils % (Manual) Band Neutrophils % Lymphocytes % Lymphocytes % (Manual) Monocytes % Monocytes % (Manual) Eosinophils % Eosinophils % (Manual) Basophils % Basophils % (Manual) Nucleated RBC % Platelet Estimate PT with INR INR PTT (Actin FS) Anticoagulation Therapy No Result Required. Puncture Site Left radial ABG pH 7.32 L ABG pCO2 at Pt Temp 36.6 ABG pO2 at Pt Temp 90.7 ABG HCO3 18.2 L ABG O2 Sat (Measured) 96.1 ABG O2 Content 20.9 ABG Base Excess -6.8 L Santi Test Positive VBG pH POC VBG pCO2 POC VBG pO2 VBG HCO3 VBG O2 Sat (Tonny) VBG Base Excess O2 Delivery Device Room air Oxygen Flow Rate 21% Vent Mode No Result Required. Vent Rate No Result Required. Mechanical Rate No Result Required. Pressure Support Vent No Result Required. Sodium Potassium Chloride Carbon Dioxide Anion Gap BUN Creatinine Est GFR (CKD-EPI)AfAm Est GFR (CKD-EPI)NonAf POC Glucometer Random Glucose Hemoglobin A1c % Lactic Acid Calcium Phosphorus Magnesium Total Bilirubin AST ALT Alkaline Phosphatase Creatine Kinase Creatine Kinase Index CK-MB (CK-2) Troponin I Total Protein Albumin Triglycerides Cholesterol Total LDL Cholesterol HDL Cholesterol Beta-Hydroxybutyrate TSH Urine Color Urine Appearance Urine pH Ur Specific [place] Urine Protein Urine Glucose (UA) Urine Ketones Urine Blood Urine Nitrite Urine Bilirubin Urine Urobilinogen Ur Leukocyte Esterase Urine WBC (Auto) Urine RBC (Auto) Urine Casts (Auto) U Epithel Cells (Auto) Urine Bacteria (Auto) Urine Osmolality Ur Random Sodium Ur Random Potassium Ur Random Chloride Salicylates Acetaminophen Alcohol, Quantitative B-Hydroxybutyrate Blood Type Antibody Screen Sinus rhythm with septal infarct Echo: Pending Imaging - Results Chest X-ray: Report Reviewed Cat Scan: Report Reviewed (Head and Cervical CT) Ultrasound: Report Reviewed (Carotid Doppler small to moderate soft plaque right common carotid) EKG: Report Reviewed Problem List - Problems (1) HTN (hypertension) Code(s): I10 - ESSENTIAL (PRIMARY) HYPERTENSION (2) Hypercholesterolemia Code(s): E78.00 - PURE HYPERCHOLESTEROLEMIA, UNSPECIFIED (3) Bipolar disorder Code(s): F31.9 - BIPOLAR DISORDER, UNSPECIFIED (4) Leukocytosis Code(s): D72.829 - ELEVATED WHITE BLOOD CELL COUNT, UNSPECIFIED (5) Renal failure Code(s): N19 - UNSPECIFIED KIDNEY FAILURE (6) Rhabdomyolysis Code(s): M62.82 - RHABDOMYOLYSIS Assessment/Plan 1. ? Syncope 2. HTN 3. Hypercholesterolemia 4. SMITA with underlying CKD due to dehydration ?rhabdomyolosis 5. Hypernatremia due to above 6. Bipolar disorder, depression and anxiety 7. PAF currently in sinus rhythm [id number] score of either 2-3 8. Carotid artery disease PLAN: 1. Heparin protocol for now and to assess whether he would be able to take [facility] anticoagulation 2. Hydration and monitor renal function and electrolytes. Correct NA 3. Neuro input noted 4. Consider low dose beta fatuma if tolerated 5. Echocardiography to assess LV/RV and valvular function Guarded Further plans are to follow Andi Vázquez MD
[2019-02-17 11:48] LABS: CALCIUM 9.2 mg/dL (8.5-10.1); CREATININE 5.1 mg/dL (0.55-1.3); POTASSIUM 5.1 mmol/L (3.5-5.1)
--- NOTE | 2019-02-17 11:48 | CONSULT ---
Consultation: REQUESTING PROVIDER: Dr. He CONSULT SERVICE: Nephrology HISTORY OF PRESENT ILLNESS: Patient is a 68 year old male with history of CKD, hypertension, non-insulin dependent diabetes mellitus, hyperlipidemia, bipolar disorder, presents to ED after being found down on the ground in his apartment by police after wellness call was placed by patient's brother. IN ED patient was diheveled, oriented only to self, and minimally communicative with reported NIHSS of at least 14. CT head negative for acute intracranial pathology. Noted to be in Afib with CHADSVASC at least 3; Heparin drip was initiated. Patient noted to be in DKA, hyperkalemic to 5.6 (now hypokalemic), progressively hypernatremic (now at Na 164), hyperphosphatemic, hypermagnesemic. CPK elevated to 1101. Chest radiograph reveals right lower lobe atelectasis Renal US reveals no mass or cystic lesions with appropriate Doppler flow bilaterally. Past medical history: hypertension, non-insulin dependent diabetes mellitus, hyperlipidemia, bipolar disorder, ?CKD Past surgical history: unable to obtain Family history: unable to obtain Allergies: NKDA Social: Lives alone in [facility]. Brother occasionally checks in on patient, however last visit over three months ago. REVIEW OF SYSTEMS: As per HPI . Unable to obtain further due to patient's clinical condition. PHYSICAL EXAMINATION Vital Signs - 24 hr 02/16/19 02/16/19 02/16/19 19:00 20:45 22:23 Temperature 98.5 F 98.5 F Pulse Rate 101 H Pulse Rate [ Apical] Pulse Rate [ 92 H 59 L Left] Respiratory 20 20 26 H Rate Blood Pressure 139/88 Blood Pressure 185/150 H 111/83 [Left Arm] O2 Sat by Pulse 94 L 94 L 95 Oximetry (%) 02/17/19 02/17/19 02/17/19 00:01 00:30 03:50 Temperature Pulse Rate 122 H Pulse Rate [ Apical] Pulse Rate [ 122 H 62 Left] Respiratory 22 H 20 Rate Blood Pressure 136/103 H Blood Pressure 120/99 111/68 [Left Arm] O2 Sat by Pulse 95 97 Oximetry (%) 02/17/19 02/17/19 02/17/19 06:32 07:00 07:25 Temperature Pulse Rate 112 H Pulse Rate [ 111 H 113 H Apical] Pulse Rate [ Left] Respiratory 21 H 21 H Rate Blood Pressure 115/86 Blood Pressure 118/72 [Left Arm] O2 Sat by Pulse 95 Oximetry (%) 02/17/19 02/17/19 02/17/19 07:50 08:30 09:50 Temperature Pulse Rate Pulse Rate [ 111 H 68 65 Apical] Pulse Rate [ Left] Respiratory 16 15 20 Rate Blood Pressure Blood Pressure 116/53 L 126/69 122/59 L [Left Arm] O2 Sat by Pulse 97 95 Oximetry (%) GENERAL: Awake, oriented to person, place, in no acute distress. HEENT: NC/AT. PERRL, EOMI. Dry mucous membranes. LUNGS: Breath sounds equal, clear to auscultation bilaterally. No wheezes, and no crackles. No accessory muscle use. HEART: Irregular rate and rhythm. Normal S1 and S2 without murmur, rub or gallop. ABDOMEN: Soft, distended, diffusely tender to palpation. Negative rebound tenderness, guarding. EXTREMITIES: 2+ pulses, warm, well-perfused. No cyanosis. No clubbing. Cap refill <2 seconds. No peripheral edema. NEUROLOGICAL: Cranial nerves II-XII grossly intact. Patient not able to cooperate with full neurological exam. SKIN: Warm, dry. 5cm lesion noted right lower abdomen. Laboratory Results - last 24 hr 02/16/19 02/16/19 02/16/19 19:30 19:30 19:30 WBC 12.3 H RBC 5.54 Hgb 17.4 H Hct 53.5 H MCV 96.7 H MCH 31.5 MCHC 32.6 RDW 14.1 Plt Count 226 MPV 10.2 Absolute Neuts (auto) 11.0 H Neutrophils % 89.2 H Neutrophils % (Manual) 92.0 H Band Neutrophils % 4.0 Lymphocytes % 2.7 L Lymphocytes % (Manual) 4.0 L Monocytes % 7.4 Monocytes % (Manual) 0 L Eosinophils % 0.2 Eosinophils % (Manual) 0.0 Basophils % 0.5 Basophils % (Manual) 0.0 Nucleated RBC % 0 Platelet Estimate Adequate PT with INR 15.40 H INR 1.30 H PTT (Actin FS) 30.8 Anticoagulation Therapy Puncture Site ABG pH ABG pCO2 at Pt Temp ABG pO2 at Pt Temp ABG HCO3 ABG O2 Sat (Measured) ABG O2 Content ABG Base Excess Santi Test VBG pH POC VBG pCO2 POC VBG pO2 VBG HCO3 VBG O2 Sat (Tonny) VBG Base Excess O2 Delivery Device Oxygen Flow Rate Vent Mode Vent Rate Mechanical Rate Pressure Support Vent Sodium 145 Potassium 5.6 H Chloride 111 H Carbon Dioxide 20 L Anion Gap 15 BUN 272.9 H* Creatinine 6.7 H Est GFR (CKD-EPI)AfAm 9.01 Est GFR (CKD-EPI)NonAf 7.78 POC Glucometer Random Glucose 381 H Hemoglobin A1c % Serum Osmolality Lactic Acid Calcium 9.5 Phosphorus > 9.0 H* Magnesium Total Bilirubin 1.0 AST 25 ALT 32 Alkaline Phosphatase 64 Creatine Kinase 1101 H Creatine Kinase Index Cancelled CK-MB (CK-2) Cancelled Troponin I 0.05 Total Protein 6.6 Albumin 2.7 L Triglycerides 354 H Cholesterol 227 H Total LDL Cholesterol 143 H HDL Cholesterol 37 L Beta-Hydroxybutyrate TSH Urine Color Urine Appearance Urine pH Ur Specific [place] Urine Protein Urine Glucose (UA) Urine Ketones Urine Blood Urine Nitrite Urine Bilirubin Urine Urobilinogen Ur Leukocyte Esterase Urine WBC (Auto) Urine RBC (Auto) Urine Casts (Auto) U Epithel Cells (Auto) Urine Bacteria (Auto) Urine Osmolality Ur Random Sodium Ur Random Potassium Ur Random Chloride Salicylates Acetaminophen Alcohol, Quantitative B-Hydroxybutyrate Blood Type Antibody Screen 02/16/19 02/16/19 02/16/19 19:30 19:30 19:30 WBC RBC Hgb Hct MCV MCH MCHC RDW Plt Count MPV Absolute Neuts (auto) Neutrophils % Neutrophils % (Manual) Band Neutrophils % Lymphocytes % Lymphocytes % (Manual) Monocytes % Monocytes % (Manual) Eosinophils % Eosinophils % (Manual) Basophils % Basophils % (Manual) Nucleated RBC % Platelet Estimate PT with INR INR PTT (Actin FS) Anticoagulation Therapy Puncture Site ABG pH ABG pCO2 at Pt Temp ABG pO2 at Pt Temp ABG HCO3 ABG O2 Sat (Measured) ABG O2 Content ABG Base Excess Santi Test VBG pH POC VBG pCO2 POC VBG pO2 VBG HCO3 VBG O2 Sat (Tonny) VBG Base Excess O2 Delivery Device Oxygen Flow Rate Vent Mode Vent Rate Mechanical Rate Pressure Support Vent Sodium Potassium Chloride Carbon Dioxide Anion Gap BUN Creatinine Est GFR (CKD-EPI)AfAm Est GFR (CKD-EPI)NonAf POC Glucometer Random Glucose Hemoglobin A1c % Serum Osmolality Lactic Acid 1.8 Calcium Phosphorus Magnesium 4.7 H Total Bilirubin AST ALT Alkaline Phosphatase Creatine Kinase Creatine Kinase Index CK-MB (CK-2) Troponin I Total Protein Albumin Triglycerides Cholesterol Total LDL Cholesterol HDL Cholesterol Beta-Hydroxybutyrate TSH Urine Color Urine Appearance Urine pH Ur Specific [place] Urine Protein Urine Glucose (UA) Urine Ketones Urine Blood Urine Nitrite Urine Bilirubin Urine Urobilinogen Ur Leukocyte Esterase Urine WBC (Auto) Urine RBC (Auto) Urine Casts (Auto) U Epithel Cells (Auto) Urine Bacteria (Auto) Urine Osmolality Ur Random Sodium Ur Random Potassium Ur Random Chloride Salicylates Acetaminophen Alcohol, Quantitative < 3.0 B-Hydroxybutyrate Blood Type A NEGATIVE Antibody Screen Negative 02/16/19 02/16/19 02/16/19 19:30 19:30 19:30 WBC RBC Hgb Hct MCV MCH MCHC RDW Plt Count MPV Absolute Neuts (auto) Neutrophils % Neutrophils % (Manual) Band Neutrophils % Lymphocytes % Lymphocytes % (Manual) Monocytes % Monocytes % (Manual) Eosinophils % Eosinophils % (Manual) Basophils % Basophils % (Manual) Nucleated RBC % Platelet Estimate PT with INR INR PTT (Actin FS) Anticoagulation Therapy Puncture Site ABG pH ABG pCO2 at Pt Temp ABG pO2 at Pt Temp ABG HCO3 ABG O2 Sat (Measured) ABG O2 Content ABG Base Excess Santi Test VBG pH 7.28 L POC VBG pCO2 41.3 POC VBG pO2 < 49 H VBG HCO3 18.8 L VBG O2 Sat (Tonny) 53.6 L VBG Base Excess -7.4 L O2 Delivery Device Oxygen Flow Rate Vent Mode Vent Rate Mechanical Rate Pressure Support Vent Sodium Potassium Chloride Carbon Dioxide Anion Gap BUN Creatinine Est GFR (CKD-EPI)AfAm Est GFR (CKD-EPI)NonAf POC Glucometer Random Glucose Hemoglobin A1c % Serum Osmolality Lactic Acid Calcium Phosphorus Magnesium Total Bilirubin AST ALT Alkaline Phosphatase Creatine Kinase Creatine Kinase Index CK-MB (CK-2) Troponin I Total Protein Albumin Triglycerides Cholesterol Total LDL Cholesterol HDL Cholesterol Beta-Hydroxybutyrate TSH Urine Color Urine Appearance Urine pH Ur Specific [place] Urine Protein Urine Glucose (UA) Urine Ketones Urine Blood Urine Nitrite Urine Bilirubin Urine Urobilinogen Ur Leukocyte Esterase Urine WBC (Auto) Urine RBC (Auto) Urine Casts (Auto) U Epithel Cells (Auto) Urine Bacteria (Auto) Urine Osmolality Ur Random Sodium Ur Random Potassium Ur Random Chloride Salicylates < 1.7 L Acetaminophen --noresult-- Alcohol, Quantitative B-Hydroxybutyrate Cancelled Blood Type Antibody Screen 02/16/19 02/16/19 02/16/19 19:30 22:51 22:51 WBC RBC Hgb Hct MCV MCH MCHC RDW Plt Count MPV Absolute Neuts (auto) Neutrophils % Neutrophils % (Manual) Band Neutrophils % Lymphocytes % Lymphocytes % (Manual) Monocytes % Monocytes % (Manual) Eosinophils % Eosinophils % (Manual) Basophils % Basophils % (Manual) Nucleated RBC % Platelet Estimate PT with INR INR PTT (Actin FS) Anticoagulation Therapy Puncture Site ABG pH ABG pCO2 at Pt Temp ABG pO2 at Pt Temp ABG HCO3 ABG O2 Sat (Measured) ABG O2 Content ABG Base Excess Santi Test VBG pH POC VBG pCO2 POC VBG pO2 VBG HCO3 VBG O2 Sat (Tonny) VBG Base Excess O2 Delivery Device Oxygen Flow Rate Vent Mode Vent Rate Mechanical Rate Pressure Support Vent Sodium 147 H Potassium 5.0 Chloride 114 H Carbon Dioxide 20 L Anion Gap 13 BUN 255.5 H* Creatinine 6.2 H Est GFR (CKD-EPI)AfAm 9.90 Est GFR (CKD-EPI)NonAf 8.54 POC Glucometer Random Glucose 347 H Hemoglobin A1c % Serum Osmolality Lactic Acid Calcium 9.2 Phosphorus 8.6 H Magnesium 4.2 H Total Bilirubin AST ALT Alkaline Phosphatase Creatine Kinase 1169 H Cancelled Creatine Kinase Index Cancelled 0.3 CK-MB (CK-2) Cancelled 4.1 H Troponin I 0.04 Cancelled Total Protein Albumin Triglycerides Cholesterol Total LDL Cholesterol HDL Cholesterol Beta-Hydroxybutyrate 5.5 H TSH Urine Color Urine Appearance Urine pH Ur Specific [place] Urine Protein Urine Glucose (UA) Urine Ketones Urine Blood Urine Nitrite Urine Bilirubin Urine Urobilinogen Ur Leukocyte Esterase Urine WBC (Auto) Urine RBC (Auto) Urine Casts (Auto) U Epithel Cells (Auto) Urine Bacteria (Auto) Urine Osmolality Ur Random Sodium Ur Random Potassium Ur Random Chloride Salicylates Acetaminophen Alcohol, Quantitative B-Hydroxybutyrate Blood Type Antibody Screen 02/16/19 02/16/19 02/16/19 22:51 22:51 22:51 WBC RBC Hgb Hct MCV MCH MCHC RDW Plt Count MPV Absolute Neuts (auto) Neutrophils % Neutrophils % (Manual) Band Neutrophils % Lymphocytes % Lymphocytes % (Manual) Monocytes % Monocytes % (Manual) Eosinophils % Eosinophils % (Manual) Basophils % Basophils % (Manual) Nucleated RBC % Platelet Estimate PT with INR INR PTT (Actin FS) Anticoagulation Therapy Puncture Site ABG pH ABG pCO2 at Pt Temp ABG pO2 at Pt Temp ABG HCO3 ABG O2 Sat (Measured) ABG O2 Content ABG Base Excess Santi Test VBG pH 7.31 POC VBG pCO2 33.6 L POC VBG pO2 60.7 H VBG HCO3 16.4 L VBG O2 Sat (Tonny) 87.0 H VBG Base Excess -8.5 L O2 Delivery Device Oxygen Flow Rate Vent Mode Vent Rate Mechanical Rate Pressure Support Vent Sodium Potassium Chloride Carbon Dioxide Anion Gap BUN Creatinine Est GFR (CKD-EPI)AfAm Est GFR (CKD-EPI)NonAf POC Glucometer Random Glucose Hemoglobin A1c % Serum Osmolality Lactic Acid Calcium Phosphorus Cancelled Magnesium Cancelled Total Bilirubin AST ALT Alkaline Phosphatase Creatine Kinase Creatine Kinase Index CK-MB (CK-2) Troponin I Cancelled Total Protein Albumin Triglycerides Cholesterol Total LDL Cholesterol HDL Cholesterol Beta-Hydroxybutyrate TSH Urine Color Urine Appearance Urine pH Ur Specific [place] Urine Protein Urine Glucose (UA) Urine Ketones Urine Blood Urine Nitrite Urine Bilirubin Urine Urobilinogen Ur Leukocyte Esterase Urine WBC (Auto) Urine RBC (Auto) Urine Casts (Auto) U Epithel Cells (Auto) Urine Bacteria (Auto) Urine Osmolality Ur Random Sodium Ur Random Potassium Ur Random Chloride Salicylates Acetaminophen Alcohol, Quantitative B-Hydroxybutyrate Blood Type Antibody Screen 02/17/19 02/17/19 02/17/19 00:00 00:30 00:30 WBC RBC Hgb Hct MCV MCH MCHC RDW Plt Count MPV Absolute Neuts (auto) Neutrophils % Neutrophils % (Manual) Band Neutrophils % Lymphocytes % Lymphocytes % (Manual) Monocytes % Monocytes % (Manual) Eosinophils % Eosinophils % (Manual) Basophils % Basophils % (Manual) Nucleated RBC % Platelet Estimate PT with INR INR PTT (Actin FS) Anticoagulation Therapy Puncture Site ABG pH ABG pCO2 at Pt Temp ABG pO2 at Pt Temp ABG HCO3 ABG O2 Sat (Measured) ABG O2 Content ABG Base Excess Santi Test VBG pH POC VBG pCO2 POC VBG pO2 VBG HCO3 VBG O2 Sat (Tonny) VBG Base Excess O2 Delivery Device Oxygen Flow Rate Vent Mode Vent Rate Mechanical Rate Pressure Support Vent Sodium Potassium Chloride Carbon Dioxide Anion Gap BUN Creatinine Est GFR (CKD-EPI)AfAm Est GFR (CKD-EPI)NonAf POC Glucometer Random Glucose Hemoglobin A1c % Serum Osmolality Cancelled Lactic Acid Calcium Phosphorus Magnesium Total Bilirubin AST ALT Alkaline Phosphatase Creatine Kinase Creatine Kinase Index CK-MB (CK-2) Troponin I Total Protein Albumin Triglycerides Cholesterol Total LDL Cholesterol HDL Cholesterol Beta-Hydroxybutyrate Cancelled TSH Urine Color Yellow Urine Appearance Cloudy Urine pH 5.0 Ur Specific [place] 1.018 Urine Protein 1+ H Urine Glucose (UA) 2+ H Urine Ketones Negative Urine Blood 3+ H Urine Nitrite Negative Urine Bilirubin Negative Urine Urobilinogen 0.2 Ur Leukocyte Esterase Negative Urine WBC (Auto) 3 Urine RBC (Auto) 85 Urine Casts (Auto) 9 U Epithel Cells (Auto) 2.3 Urine Bacteria (Auto) 4.6 Urine Osmolality 571 Ur Random Sodium Ur Random Potassium Ur Random Chloride Salicylates Acetaminophen Alcohol, Quantitative B-Hydroxybutyrate Blood Type Antibody Screen 02/17/19 02/17/19 02/17/19 00:30 00:36 03:57 WBC RBC Hgb Hct MCV MCH MCHC RDW Plt Count MPV Absolute Neuts (auto) Neutrophils % Neutrophils % (Manual) Band Neutrophils % Lymphocytes % Lymphocytes % (Manual) Monocytes % Monocytes % (Manual) Eosinophils % Eosinophils % (Manual) Basophils % Basophils % (Manual) Nucleated RBC % Platelet Estimate PT with INR INR PTT (Actin FS) Anticoagulation Therapy Puncture Site ABG pH ABG pCO2 at Pt Temp ABG pO2 at Pt Temp ABG HCO3 ABG O2 Sat (Measured) ABG O2 Content ABG Base Excess Santi Test VBG pH POC VBG pCO2 POC VBG pO2 VBG HCO3 VBG O2 Sat (Tonny) VBG Base Excess O2 Delivery Device Oxygen Flow Rate Vent Mode Vent Rate Mechanical Rate Pressure Support Vent Sodium 147 H Potassium 5.2 H Chloride 113 H Carbon Dioxide 20 L Anion Gap 14 BUN 252.3 H* Creatinine 6.2 H Est GFR (CKD-EPI)AfAm 9.90 Est GFR (CKD-EPI)NonAf 8.54 POC Glucometer 297 Random Glucose 329 H Hemoglobin A1c % Serum Osmolality Lactic Acid Calcium 8.9 Phosphorus Magnesium Total Bilirubin 0.9 AST 29 ALT 32 Alkaline Phosphatase 59 Creatine Kinase Creatine Kinase Index CK-MB (CK-2) Troponin I Total Protein 5.8 L Albumin 2.3 L Triglycerides Cholesterol Total LDL Cholesterol HDL Cholesterol Beta-Hydroxybutyrate TSH Urine Color Urine Appearance Urine pH Ur Specific [place] Urine Protein Urine Glucose (UA) Urine Ketones Urine Blood Urine Nitrite Urine Bilirubin Urine Urobilinogen Ur Leukocyte Esterase Urine WBC (Auto) Urine RBC (Auto) Urine Casts (Auto) U Epithel Cells (Auto) Urine Bacteria (Auto) Urine Osmolality Ur Random Sodium 35 L Ur Random Potassium 31.0 Ur Random Chloride 24 L Salicylates Acetaminophen Alcohol, Quantitative B-Hydroxybutyrate Blood Type Antibody Screen 02/17/19 02/17/19 02/17/19 05:00 05:13 05:38 WBC 10.5 H RBC 5.00 Hgb 16.0 Hct 48.5 MCV 96.9 H MCH 32.0 MCHC 33.0 RDW 14.3 Plt Count 179 D MPV 9.9 Absolute Neuts (auto) 9.4 H Neutrophils % 89.3 H Neutrophils % (Manual) Band Neutrophils % Lymphocytes % 3.6 L D Lymphocytes % (Manual) Monocytes % 6.6 Monocytes % (Manual) Eosinophils % 0.2 Eosinophils % (Manual) Basophils % 0.3 Basophils % (Manual) Nucleated RBC % 0 Platelet Estimate PT with INR 18.30 H INR 1.54 H PTT (Actin FS) 43.1 H Anticoagulation Therapy Puncture Site ABG pH ABG pCO2 at Pt Temp ABG pO2 at Pt Temp ABG HCO3 ABG O2 Sat (Measured) ABG O2 Content ABG Base Excess Santi Test VBG pH POC VBG pCO2 POC VBG pO2 VBG HCO3 VBG O2 Sat (Tonny) VBG Base Excess O2 Delivery Device Oxygen Flow Rate Vent Mode Vent Rate Mechanical Rate Pressure Support Vent Sodium 156 H Potassium 3.9 Chloride 128 H Carbon Dioxide 18 L Anion Gap 9 BUN 204.9 H* Creatinine 4.0 H Est GFR (CKD-EPI)AfAm 16.82 Est GFR (CKD-EPI)NonAf 14.51 POC Glucometer Random Glucose 219 H Hemoglobin A1c % Serum Osmolality Lactic Acid Calcium 6.2 L* Phosphorus Magnesium Total Bilirubin AST ALT Alkaline Phosphatase Creatine Kinase Creatine Kinase Index CK-MB (CK-2) Troponin I Total Protein Albumin Triglycerides Cholesterol Total LDL Cholesterol HDL Cholesterol Beta-Hydroxybutyrate TSH Urine Color Urine Appearance Urine pH Ur Specific [place] Urine Protein Urine Glucose (UA) Urine Ketones Urine Blood Urine Nitrite Urine Bilirubin Urine Urobilinogen Ur Leukocyte Esterase Urine WBC (Auto) Urine RBC (Auto) Urine Casts (Auto) U Epithel Cells (Auto) Urine Bacteria (Auto) Urine Osmolality Ur Random Sodium Ur Random Potassium Ur Random Chloride Salicylates Acetaminophen Alcohol, Quantitative B-Hydroxybutyrate Blood Type Antibody Screen 02/17/19 02/17/19 02/17/19 05:38 08:25 08:25 WBC RBC Hgb Hct MCV MCH MCHC RDW Plt Count MPV Absolute Neuts (auto) Neutrophils % Neutrophils % (Manual) Band Neutrophils % Lymphocytes % Lymphocytes % (Manual) Monocytes % Monocytes % (Manual) Eosinophils % Eosinophils % (Manual) Basophils % Basophils % (Manual) Nucleated RBC % Platelet Estimate PT with INR INR PTT (Actin FS) Anticoagulation Therapy Puncture Site ABG pH ABG pCO2 at Pt Temp ABG pO2 at Pt Temp ABG HCO3 ABG O2 Sat (Measured) ABG O2 Content ABG Base Excess Santi Test VBG pH POC VBG pCO2 POC VBG pO2 VBG HCO3 VBG O2 Sat (Tonny) VBG Base Excess O2 Delivery Device Oxygen Flow Rate Vent Mode Vent Rate Mechanical Rate Pressure Support Vent Sodium 150 H 164 H* Potassium 4.8 2.9 L* Chloride 122 H 138 H Carbon Dioxide 17 L 16 L Anion Gap 11 11 BUN 236.6 H* 165.9 H* Creatinine 5.5 H 3.0 H Est GFR (CKD-EPI)AfAm 11.44 23.81 Est GFR (CKD-EPI)NonAf 9.87 20.54 POC Glucometer Random Glucose 264 H 96 Hemoglobin A1c % 6.3 Serum Osmolality Lactic Acid Calcium 8.7 5.5 L* Phosphorus 7.9 H Magnesium 3.9 H Total Bilirubin 0.8 AST 35 ALT 30 Alkaline Phosphatase 55 Creatine Kinase Creatine Kinase Index CK-MB (CK-2) Troponin I Total Protein 5.6 L Albumin 2.2 L Triglycerides Cholesterol Total LDL Cholesterol HDL Cholesterol Beta-Hydroxybutyrate TSH 2.89 D Urine Color Urine Appearance Urine pH Ur Specific [place] Urine Protein Urine Glucose (UA) Urine Ketones Urine Blood Urine Nitrite Urine Bilirubin Urine Urobilinogen Ur Leukocyte Esterase Urine WBC (Auto) Urine RBC (Auto) Urine Casts (Auto) U Epithel Cells (Auto) Urine Bacteria (Auto) Urine Osmolality Ur Random Sodium Ur Random Potassium Ur Random Chloride Salicylates Acetaminophen Alcohol, Quantitative B-Hydroxybutyrate Blood Type Antibody Screen 02/17/19 02/17/19 02/17/19 09:50 10:21 10:32 WBC RBC Hgb Hct MCV MCH MCHC RDW Plt Count MPV Absolute Neuts (auto) Neutrophils % Neutrophils % (Manual) Band Neutrophils % Lymphocytes % Lymphocytes % (Manual) Monocytes % Monocytes % (Manual) Eosinophils % Eosinophils % (Manual) Basophils % Basophils % (Manual) Nucleated RBC % Platelet Estimate PT with INR INR PTT (Actin FS) Anticoagulation Therapy No Result Required. Puncture Site Left radial ABG pH 7.32 L ABG pCO2 at Pt Temp 36.6 ABG pO2 at Pt Temp 90.7 ABG HCO3 18.2 L ABG O2 Sat (Measured) 96.1 ABG O2 Content 20.9 ABG Base Excess -6.8 L Santi Test Positive VBG pH POC VBG pCO2 POC VBG pO2 VBG HCO3 VBG O2 Sat (Tonny) VBG Base Excess O2 Delivery Device Room air Oxygen Flow Rate 21% Vent Mode No Result Required. Vent Rate No Result Required. Mechanical Rate No Result Required. Pressure Support Vent No Result Required. Sodium Potassium Chloride Carbon Dioxide Anion Gap BUN Creatinine Est GFR (CKD-EPI)AfAm Est GFR (CKD-EPI)NonAf POC Glucometer 112 Random Glucose Hemoglobin A1c % Serum Osmolality 409 H Lactic Acid Calcium Phosphorus Magnesium Total Bilirubin AST ALT Alkaline Phosphatase Creatine Kinase Creatine Kinase Index CK-MB (CK-2) Troponin I Total Protein Albumin Triglycerides Cholesterol Total LDL Cholesterol HDL Cholesterol Beta-Hydroxybutyrate TSH Urine Color Urine Appearance Urine pH Ur Specific [place] Urine Protein Urine Glucose (UA) Urine Ketones Urine Blood Urine Nitrite Urine Bilirubin Urine Urobilinogen Ur Leukocyte Esterase Urine WBC (Auto) Urine RBC (Auto) Urine Casts (Auto) U Epithel Cells (Auto) Urine Bacteria (Auto) Urine Osmolality Ur Random Sodium Ur Random Potassium Ur Random Chloride Salicylates Acetaminophen Alcohol, Quantitative B-Hydroxybutyrate Blood Type Antibody Screen Active Medications Generic Name Dose Route Start Last Admin Trade Name Freq PRN Reason Stop Dose Admin Calcitriol 0.25 mcg 02/17/19 10:00 Rocaltrol - PO DAILY TAVARES Calcium Acetate 667 mg 02/17/19 08:00 Phoslo - PO TIDCM TAVARES Chlorhexidine Gluconate 1 applic 02/17/19 22:00 Hibiclens For Decolonization - TP HS TAVARES Clotrimazole 1 applic 02/17/19 10:00 Lotrimin 1% Cream - TP BID TAVARES Heparin Sodium (Porcine) 5,000 unit 02/17/19 10:12 Heparin - IVPUSH PRN PRN APTT (SECONDS) <40 Heparin Sodium (Porcine) 1,000 unit 02/17/19 10:12 Heparin - IVPUSH PRN PRN APTT (SECONDS) 40-49 Potassium Chloride 40 meq/ 1,020 mls @ 100 mls/hr 02/17/19 10:15 Dextrose IV Q10H TAVARES Heparin Sodium/Dextrose 25,000 units in 500 mls @ 20 mls/hr 02/17/19 10:15 10:30 Heparin Infusion - IVPB 1,100 units/hr TITR TAVARES 22 mls/hr Administration Protocol 1,000 UNITS/HR Mupirocin 1 applic 02/17/19 10:00 Bactroban Ointment (For Decolonization) - NS 02/22/19 09:59 BID TAVARES ASSESSMENT/PLAN: Patient is a 68 year old male with history of CKD, hypertension, non-insulin dependent diabetes mellitus, hyperlipidemia, bipolar disorder, presents to ED after being found down on the ground in his apartment for unknown duration. SMITA; Severe hypernatremia -Patient apprears clinically dry on exam. Free water defecit calculated to >13 Liters. Acute kidney injury likely pre-renal in etiology. -Fluids switched to D5W with 40meq KCL. -Encourage judicious oral hydration -Monitor BMP closely. Careful not to over-correct Na greater than 8mmol/L within 24 hours. -No indicated for hemodialysis at this time. Severe hypocalcemia, Hypokalemia, -Patient has received 2L Calcium Gluconate. -Aggressive repletion with 40meq KCL per each liter of fluids. -Follow BMP closely Hyperchloridemia -Contributing factor to NAGMA. Concern for iatrogenic etiology given aggressive Sodium Chloride administration. -Fluids switched to D5W. Monitor BMP closely Acute metabolic encephalopathy -CT head negative for acute pathology. Neurology recommendations appreciated. -Consider uremia as contributing factor to patient's mental status. Per brother , patient is able to perform activities of daily living at baseline. -Monitor BUN/ Cr with fluid hydration. Currently patient is making urine, and there is no indication for HD at this time. Disposition: We will continue to follow the patient. Thank you for this consultative opportunity. Visit type - Emergency Visit Emergency Visit: Yes ED Registration Date: 02/16/19 Care time: The patient presented to the Emergency Department on the above date and was hospitalized for further evaluation of their emergent condition. - New Patient This patient is new to me today: Yes Date on this admission: 02/17/19 - Critical Care Critical Care patient: Yes Total Critical Care Time (in minutes): 36 Critical Care Statement: The care of this patient involved high complexity decision making to prevent further life threatening deterioration of the patient 's condition and/or to evaluate & treat vital organ system(s) failure or risk of failure. ATTENDING PHYSICIAN STATEMENT I saw and evaluated the patient. I reviewed the resident's note and discussed the case with the resident. I agree with the resident's findings and plan as documented. SUBJECTIVE: OBJECTIVE: ASSESSMENT AND PLAN:
[2019-02-17 12:12] LABS: BLOOD UREA NITROGEN 230.4 mg/dL (7-18)
[2019-02-17] MEDS ORDERED: POTASSIUM CHLORIDE 40 MEQ in DEXTROSE 5%-WATER - 1,000 ML IVPB SCH (12:34)
--- NOTE | 2019-02-17 13:18 | PN ---
Teaching Attending Note Name of Resident: Eb Harding ATTENDING PHYSICIAN STATEMENT I saw and evaluated the patient. I reviewed the resident's note and discussed the case with the resident. I agree with the resident's findings and plan as documented with exceptions below. SUBJECTIVE: Patient seen and examined, awake, oriented to self, answering some questions, reports fell on sunday and then few more falls since, unable to provide any further details. Unable to assess for pain, dyspnea or concerns otherwise. OBJECTIVE: Vital Signs Period Temp Pulse Resp BP Sys/Verdugo Pulse Ox Last 24 Hr 98.5 F-98.5 F 59-122 15-26 111-185/53-150 94-97 Intake & Output 02/14/19 02/15/19 02/16/19 02/17/19 23:59 23:59 23:59 23:59 Output Total 400 Balance -400 Weight 300 lb General: lying in bed, dry mucous membrane, awake, oriented to self but confused otherwise, no acute distress neck: soft, supple Chest: exam limited by poor participation and body habitus, no rales or wheezing appreciated anteriorly Abdomen:Soft, obese, right abdominal 5 cm ulcer with minimal surrounding erythema ?burn wound, right flank wound with subcutaneous wound, no active discharge, Tenderness on minimal superficial palpation, no voluntary or involuntary guarding or rigidity, pos bowel sounds Extremities: trace pedal edema Neuro: Awake, responds to questions occasionally, oriented to self, facial symmetry, PERRL, withdraws extremities to pain, unable to check for sensation, toes withdraws to pain Home Medications Medication Instructions Recorded Unobtainable 02/17/19 Active Medications Calcitriol (Rocaltrol -) 0.25 mcg PO DAILY TAVARES Calcium Acetate (Phoslo -) 667 mg PO TIDCM TAVARES Chlorhexidine Gluconate (Hibiclens For Decolonization -) 1 applic TP HS TAVARES Clotrimazole (Lotrimin 1% Cream -) 1 applic TP BID TAVARES Diltiazem HCl (Cardizem -) 30 mg PO TID TAVARES Heparin Sodium (Porcine) (Heparin -) 5,000 unit IVPUSH PRN PRN PRN Reason: APTT (SECONDS) <40 Heparin Sodium (Porcine) (Heparin -) 1,000 unit IVPUSH PRN PRN PRN Reason: APTT (SECONDS) 40-49 Heparin Sodium/Dextrose (Heparin Infusion -) 25,000 units in 500 mls @ 20 mls/ hr IVPB TITR TAVARES; Protocol Last Admin: 02/17/19 10:30 Dose: 1,100 units/hr, 22 mls/hr Insulin Human Regular 100 (units/ Sodium Chloride) 100 mls @ 13.6 mls/hr IVPB TITR TAVARES; Protocol Potassium Chloride 40 meq/ (Dextrose) 1,020 mls @ 100 mls/hr IVPB Q10H TAVARES Mupirocin (Bactroban Ointment (For Decolonization) -) 1 applic NS BID TAVARES Stop: 02/22/19 09:59 Laboratory Results - last 24 hr 02/16/19 02/16/19 02/16/19 19:30 19:30 19:30 WBC 12.3 H RBC 5.54 Hgb 17.4 H Hct 53.5 H MCV 96.7 H MCH 31.5 MCHC 32.6 RDW 14.1 Plt Count 226 MPV 10.2 Absolute Neuts (auto) 11.0 H Neutrophils % 89.2 H Neutrophils % (Manual) 92.0 H Band Neutrophils % 4.0 Lymphocytes % 2.7 L Lymphocytes % (Manual) 4.0 L Monocytes % 7.4 Monocytes % (Manual) 0 L Eosinophils % 0.2 Eosinophils % (Manual) 0.0 Basophils % 0.5 Basophils % (Manual) 0.0 Nucleated RBC % 0 Platelet Estimate Adequate PT with INR 15.40 H INR 1.30 H PTT (Actin FS) 30.8 Anticoagulation Therapy Puncture Site ABG pH ABG pCO2 at Pt Temp ABG pO2 at Pt Temp ABG HCO3 ABG O2 Sat (Measured) ABG O2 Content ABG Base Excess Santi Test VBG pH POC VBG pCO2 POC VBG pO2 VBG HCO3 VBG O2 Sat (Tnony) VBG Base Excess O2 Delivery Device Oxygen Flow Rate Vent Mode Vent Rate Mechanical Rate Pressure Support Vent Sodium 145 Potassium 5.6 H Chloride 111 H Carbon Dioxide 20 L Anion Gap 15 BUN 272.9 H* Creatinine 6.7 H Est GFR (CKD-EPI)AfAm 9.01 Est GFR (CKD-EPI)NonAf 7.78 POC Glucometer Random Glucose 381 H Hemoglobin A1c % Serum Osmolality Lactic Acid Calcium 9.5 Phosphorus > 9.0 H* Magnesium Total Bilirubin 1.0 AST 25 ALT 32 Alkaline Phosphatase 64 Creatine Kinase 1101 H Creatine Kinase Index Cancelled CK-MB (CK-2) Cancelled Troponin I 0.05 Total Protein 6.6 Albumin 2.7 L Triglycerides 354 H Cholesterol 227 H Total LDL Cholesterol 143 H HDL Cholesterol 37 L Beta-Hydroxybutyrate TSH Urine Color Urine Appearance Urine pH Ur Specific [place] Urine Protein Urine Glucose (UA) Urine Ketones Urine Blood Urine Nitrite Urine Bilirubin Urine Urobilinogen Ur Leukocyte Esterase Urine WBC (Auto) Urine RBC (Auto) Urine Casts (Auto) U Epithel Cells (Auto) Urine Bacteria (Auto) Urine Osmolality Ur Random Sodium Ur Random Potassium Ur Random Chloride Salicylates Acetaminophen Alcohol, Quantitative B-Hydroxybutyrate Blood Type Antibody Screen 02/16/19 02/16/19 02/16/19 19:30 19:30 19:30 WBC RBC Hgb Hct MCV MCH MCHC RDW Plt Count MPV Absolute Neuts (auto) Neutrophils % Neutrophils % (Manual) Band Neutrophils % Lymphocytes % Lymphocytes % (Manual) Monocytes % Monocytes % (Manual) Eosinophils % Eosinophils % (Manual) Basophils % Basophils % (Manual) Nucleated RBC % Platelet Estimate PT with INR INR PTT (Actin FS) Anticoagulation Therapy Puncture Site ABG pH ABG pCO2 at Pt Temp ABG pO2 at Pt Temp ABG HCO3 ABG O2 Sat (Measured) ABG O2 Content ABG Base Excess Santi Test VBG pH POC VBG pCO2 POC VBG pO2 VBG HCO3 VBG O2 Sat (Tonny) VBG Base Excess O2 Delivery Device Oxygen Flow Rate Vent Mode Vent Rate Mechanical Rate Pressure Support Vent Sodium Potassium Chloride Carbon Dioxide Anion Gap BUN Creatinine Est GFR (CKD-EPI)AfAm Est GFR (CKD-EPI)NonAf POC Glucometer Random Glucose Hemoglobin A1c % Serum Osmolality Lactic Acid 1.8 Calcium Phosphorus Magnesium 4.7 H Total Bilirubin AST ALT Alkaline Phosphatase Creatine Kinase Creatine Kinase Index CK-MB (CK-2) Troponin I Total Protein Albumin Triglycerides Cholesterol Total LDL Cholesterol HDL Cholesterol Beta-Hydroxybutyrate TSH Urine Color Urine Appearance Urine pH Ur Specific [place] Urine Protein Urine Glucose (UA) Urine Ketones Urine Blood Urine Nitrite Urine Bilirubin Urine Urobilinogen Ur Leukocyte Esterase Urine WBC (Auto) Urine RBC (Auto) Urine Casts (Auto) U Epithel Cells (Auto) Urine Bacteria (Auto) Urine Osmolality Ur Random Sodium Ur Random Potassium Ur Random Chloride Salicylates Acetaminophen Alcohol, Quantitative < 3.0 B-Hydroxybutyrate Blood Type A NEGATIVE Antibody Screen Negative 02/16/19 02/16/1919 19:30 19:30 19:30 WBC RBC Hgb Hct MCV MCH MCHC RDW Plt Count MPV Absolute Neuts (auto) Neutrophils % Neutrophils % (Manual) Band Neutrophils % Lymphocytes % Lymphocytes % (Manual) Monocytes % Monocytes % (Manual) Eosinophils % Eosinophils % (Manual) Basophils % Basophils % (Manual) Nucleated RBC % Platelet Estimate PT with INR INR PTT (Actin FS) Anticoagulation Therapy Puncture Site ABG pH ABG pCO2 at Pt Temp ABG pO2 at Pt Temp ABG HCO3 ABG O2 Sat (Measured) ABG O2 Content ABG Base Excess Santi Test VBG pH 7.28 L POC VBG pCO2 41.3 POC VBG pO2 < 49 H VBG HCO3 18.8 L VBG O2 Sat ([place]) 53.6 L VBG Base Excess -7.4 L O2 Delivery Device Oxygen Flow Rate Vent Mode Vent Rate Mechanical Rate Pressure Support Vent Sodium Potassium Chloride Carbon Dioxide Anion Gap BUN Creatinine Est GFR (CKD-EPI)AfAm Est GFR (CKD-EPI)NonAf POC Glucometer Random Glucose Hemoglobin A1c % Serum Osmolality Lactic Acid Calcium Phosphorus Magnesium Total Bilirubin AST ALT Alkaline Phosphatase Creatine Kinase Creatine Kinase Index CK-MB (CK-2) Troponin I Total Protein Albumin Triglycerides Cholesterol Total LDL Cholesterol HDL Cholesterol Beta-Hydroxybutyrate TSH Urine Color Urine Appearance Urine pH Ur Specific [place] Urine Protein Urine Glucose (UA) Urine Ketones Urine Blood Urine Nitrite Urine Bilirubin Urine Urobilinogen Ur Leukocyte Esterase Urine WBC (Auto) Urine RBC (Auto) Urine Casts (Auto) U Epithel Cells (Auto) Urine Bacteria (Auto) Urine Osmolality Ur Random Sodium Ur Random Potassium Ur Random Chloride Salicylates < 1.7 L Acetaminophen --noresult-- Alcohol, Quantitative B-Hydroxybutyrate Cancelled Blood Type Antibody Screen 02/16/19 02/16/19 02/16/19 19:30 22:51 22:51 WBC RBC Hgb Hct MCV MCH MCHC RDW Plt Count MPV Absolute Neuts (auto) Neutrophils % Neutrophils % (Manual) Band Neutrophils % Lymphocytes % Lymphocytes % (Manual) Monocytes % Monocytes % (Manual) Eosinophils % Eosinophils % (Manual) Basophils % Basophils % (Manual) Nucleated RBC % Platelet Estimate PT with INR INR PTT (Actin FS) Anticoagulation Therapy Puncture Site ABG pH ABG pCO2 at Pt Temp ABG pO2 at Pt Temp ABG HCO3 ABG O2 Sat (Measured) ABG O2 Content ABG Base Excess Santi Test VBG pH POC VBG pCO2 POC VBG pO2 VBG HCO3 VBG O2 Sat ([place]ny) VBG Base Excess O2 Delivery Device Oxygen Flow Rate Vent Mode Vent Rate Mechanical Rate Pressure Support Vent Sodium 147 H Potassium 5.0 Chloride 114 H Carbon Dioxide 20 L Anion Gap 13 BUN 255.5 H* Creatinine 6.2 H Est GFR (CKD-EPI)AfAm 9.90 Est GFR (CKD-EPI)NonAf 8.54 POC Glucometer Random Glucose 347 H Hemoglobin A1c % Serum Osmolality Lactic Acid Calcium 9.2 Phosphorus 8.6 H Magnesium 4.2 H Total Bilirubin AST ALT Alkaline Phosphatase Creatine Kinase 1169 H Cancelled Creatine Kinase Index Cancelled 0.3 CK-MB (CK-2) Cancelled 4.1 H Troponin I 0.04 Cancelled Total Protein Albumin Triglycerides Cholesterol Total LDL Cholesterol HDL Cholesterol Beta-Hydroxybutyrate 5.5 H TSH Urine Color Urine Appearance Urine pH Ur Specific [place] Urine Protein Urine Glucose (UA) Urine Ketones Urine Blood Urine Nitrite Urine Bilirubin Urine Urobilinogen Ur Leukocyte Esterase Urine WBC (Auto) Urine RBC (Auto) Urine Casts (Auto) U Epithel Cells (Auto) Urine Bacteria (Auto) Urine Osmolality Ur Random Sodium Ur Random Potassium Ur Random Chloride Salicylates Acetaminophen Alcohol, Quantitative B-Hydroxybutyrate Blood Type Antibody Screen 02/16/19 02/16/19 02/16/19 22:51 22:51 22:51 WBC RBC Hgb Hct MCV MCH MCHC RDW Plt Count MPV Absolute Neuts (auto) Neutrophils % Neutrophils % (Manual) Band Neutrophils % Lymphocytes % Lymphocytes % (Manual) Monocytes % Monocytes % (Manual) Eosinophils % Eosinophils % (Manual) Basophils % Basophils % (Manual) Nucleated RBC % Platelet Estimate PT with INR INR PTT (Actin FS) Anticoagulation Therapy Puncture Site ABG pH ABG pCO2 at Pt Temp ABG pO2 at Pt Temp ABG HCO3 ABG O2 Sat (Measured) ABG O2 Content ABG Base Excess Santi Test VBG pH 7.31 POC VBG pCO2 33.6 L POC VBG pO2 60.7 H VBG HCO3 16.4 L VBG O2 Sat (Tonny) 87.0 H VBG Base Excess -8.5 L O2 Delivery Device Oxygen Flow Rate Vent Mode Vent Rate Mechanical Rate Pressure Support Vent Sodium Potassium Chloride Carbon Dioxide Anion Gap BUN Creatinine Est GFR (CKD-EPI)AfAm Est GFR (CKD-EPI)NonAf POC Glucometer Random Glucose Hemoglobin A1c % Serum Osmolality Lactic Acid Calcium Phosphorus Cancelled Magnesium Cancelled Total Bilirubin AST ALT Alkaline Phosphatase Creatine Kinase Creatine Kinase Index CK-MB (CK-2) Troponin I Cancelled Total Protein Albumin Triglycerides Cholesterol Total LDL Cholesterol HDL Cholesterol Beta-Hydroxybutyrate TSH Urine Color Urine Appearance Urine pH Ur Specific [place] Urine Protein Urine Glucose (UA) Urine Ketones Urine Blood Urine Nitrite Urine Bilirubin Urine Urobilinogen Ur Leukocyte Esterase Urine WBC (Auto) Urine RBC (Auto) Urine Casts (Auto) U Epithel Cells (Auto) Urine Bacteria (Auto) Urine Osmolality Ur Random Sodium Ur Random Potassium Ur Random Chloride Salicylates Acetaminophen Alcohol, Quantitative B-Hydroxybutyrate Blood Type Antibody Screen 02/17/19 02/17/19 02/17/19 00:00 00:30 00:30 WBC RBC Hgb Hct MCV MCH MCHC RDW Plt Count MPV Absolute Neuts (auto) Neutrophils % Neutrophils % (Manual) Band Neutrophils % Lymphocytes % Lymphocytes % (Manual) Monocytes % Monocytes % (Manual) Eosinophils % Eosinophils % (Manual) Basophils % Basophils % (Manual) Nucleated RBC % Platelet Estimate PT with INR INR PTT (Actin FS) Anticoagulation Therapy Puncture Site ABG pH ABG pCO2 at Pt Temp ABG pO2 at Pt Temp ABG HCO3 ABG O2 Sat (Measured) ABG O2 Content ABG Base Excess Santi Test VBG pH POC VBG pCO2 POC VBG pO2 VBG HCO3 VBG O2 Sat (Tonny) VBG Base Excess O2 Delivery Device Oxygen Flow Rate Vent Mode Vent Rate Mechanical Rate Pressure Support Vent Sodium Potassium Chloride Carbon Dioxide Anion Gap BUN Creatinine Est GFR (CKD-EPI)AfAm Est GFR (CKD-EPI)NonAf POC Glucometer Random Glucose Hemoglobin A1c % Serum Osmolality Cancelled Lactic Acid Calcium Phosphorus Magnesium Total Bilirubin AST ALT Alkaline Phosphatase Creatine Kinase Creatine Kinase Index CK-MB (CK-2) Troponin I Total Protein Albumin Triglycerides Cholesterol Total LDL Cholesterol HDL Cholesterol Beta-Hydroxybutyrate Cancelled TSH Urine Color Yellow Urine Appearance Cloudy Urine pH 5.0 Ur Specific [place] 1.018 Urine Protein 1+ H Urine Glucose (UA) 2+ H Urine Ketones Negative Urine Blood 3+ H Urine Nitrite Negative Urine Bilirubin Negative Urine Urobilinogen 0.2 Ur Leukocyte Esterase Negative Urine WBC (Auto) 3 Urine RBC (Auto) 85 Urine Casts (Auto) 9 U Epithel Cells (Auto) 2.3 Urine Bacteria (Auto) 4.6 Urine Osmolality 571 Ur Random Sodium Ur Random Potassium Ur Random Chloride Salicylates Acetaminophen Alcohol, Quantitative B-Hydroxybutyrate Blood Type Antibody Screen 02/17/19 02/17/19 02/17/19 00:30 00:36 03:57 WBC RBC Hgb Hct MCV MCH MCHC RDW Plt Count MPV Absolute Neuts (auto) Neutrophils % Neutrophils % (Manual) Band Neutrophils % Lymphocytes % Lymphocytes % (Manual) Monocytes % Monocytes % (Manual) Eosinophils % Eosinophils % (Manual) Basophils % Basophils % (Manual) Nucleated RBC % Platelet Estimate PT with INR INR PTT (Actin FS) Anticoagulation Therapy Puncture Site ABG pH ABG pCO2 at Pt Temp ABG pO2 at Pt Temp ABG HCO3 ABG O2 Sat (Measured) ABG O2 Content ABG Base Excess Santi Test VBG pH POC VBG pCO2 POC VBG pO2 VBG HCO3 VBG O2 Sat ([place]) VBG Base Excess O2 Delivery Device Oxygen Flow Rate Vent Mode Vent Rate Mechanical Rate Pressure Support Vent Sodium 147 H Potassium 5.2 H Chloride 113 H Carbon Dioxide 20 L Anion Gap 14 BUN 252.3 H* Creatinine 6.2 H Est GFR (CKD-EPI)AfAm 9.90 Est GFR (CKD-EPI)NonAf 8.54 POC Glucometer 297 Random Glucose 329 H Hemoglobin A1c % Serum Osmolality Lactic Acid Calcium 8.9 Phosphorus Magnesium Total Bilirubin 0.9 AST 29 ALT 32 Alkaline Phosphatase 59 Creatine Kinase Creatine Kinase Index CK-MB (CK-2) Troponin I Total Protein 5.8 L Albumin 2.3 L Triglycerides Cholesterol Total LDL Cholesterol HDL Cholesterol Beta-Hydroxybutyrate TSH Urine Color Urine Appearance Urine pH Ur Specific [place] Urine Protein Urine Glucose (UA) Urine Ketones Urine Blood Urine Nitrite Urine Bilirubin Urine Urobilinogen Ur Leukocyte Esterase Urine WBC (Auto) Urine RBC (Auto) Urine Casts (Auto) U Epithel Cells (Auto) Urine Bacteria (Auto) Urine Osmolality Ur Random Sodium 35 L Ur Random Potassium 31.0 Ur Random Chloride 24 L Salicylates Acetaminophen Alcohol, Quantitative B-Hydroxybutyrate Blood Type Antibody Screen 02/17/19 02/17/19 02/17/19 05:00 05:13 05:38 WBC 10.5 H RBC 5.00 Hgb 16.0 Hct 48.5 MCV 96.9 H MCH 32.0 MCHC 33.0 RDW 14.3 Plt Count 179 D MPV 9.9 Absolute Neuts (auto) 9.4 H Neutrophils % 89.3 H Neutrophils % (Manual) Band Neutrophils % Lymphocytes % 3.6 L D Lymphocytes % (Manual) Monocytes % 6.6 Monocytes % (Manual) Eosinophils % 0.2 Eosinophils % (Manual) Basophils % 0.3 Basophils % (Manual) Nucleated RBC % 0 Platelet Estimate PT with INR 18.30 H INR 1.54 H PTT (Actin FS) 43.1 H Anticoagulation Therapy Puncture Site ABG pH ABG pCO2 at Pt Temp ABG pO2 at Pt Temp ABG HCO3 ABG O2 Sat (Measured) ABG O2 Content ABG Base Excess Santi Test VBG pH POC VBG pCO2 POC VBG pO2 VBG HCO3 VBG O2 Sat (Tonny) VBG Base Excess O2 Delivery Device Oxygen Flow Rate Vent Mode Vent Rate Mechanical Rate Pressure Support Vent Sodium 156 H Potassium 3.9 Chloride 128 H Carbon Dioxide 18 L Anion Gap 9 BUN 204.9 H* Creatinine 4.0 H Est GFR (CKD-EPI)AfAm 16.82 Est GFR (CKD-EPI)NonAf 14.51 POC Glucometer Random Glucose 219 H Hemoglobin A1c % Serum Osmolality Lactic Acid Calcium 6.2 L* Phosphorus Magnesium Total Bilirubin AST ALT Alkaline Phosphatase Creatine Kinase Creatine Kinase Index CK-MB (CK-2) Troponin I Total Protein Albumin Triglycerides Cholesterol Total LDL Cholesterol HDL Cholesterol Beta-Hydroxybutyrate TSH Urine Color Urine Appearance Urine pH Ur Specific [place] Urine Protein Urine Glucose (UA) Urine Ketones Urine Blood Urine Nitrite Urine Bilirubin Urine Urobilinogen Ur Leukocyte Esterase Urine WBC (Auto) Urine RBC (Auto) Urine Casts (Auto) U Epithel Cells (Auto) Urine Bacteria (Auto) Urine Osmolality Ur Random Sodium Ur Random Potassium Ur Random Chloride Salicylates Acetaminophen Alcohol, Quantitative B-Hydroxybutyrate Blood Type Antibody Screen 02/17/19 02/17/19 02/17/19 05:38 08:25 08:25 WBC RBC Hgb Hct MCV MCH MCHC RDW Plt Count MPV Absolute Neuts (auto) Neutrophils % Neutrophils % (Manual) Band Neutrophils % Lymphocytes % Lymphocytes % (Manual) Monocytes % Monocytes % (Manual) Eosinophils % Eosinophils % (Manual) Basophils % Basophils % (Manual) Nucleated RBC % Platelet Estimate PT with INR INR PTT (Actin FS) Anticoagulation Therapy Puncture Site ABG pH ABG pCO2 at Pt Temp ABG pO2 at Pt Temp ABG HCO3 ABG O2 Sat (Measured) ABG O2 Content ABG Base Excess Santi Test VBG pH POC VBG pCO2 POC VBG pO2 VBG HCO3 VBG O2 Sat ([place]ny) VBG Base Excess O2 Delivery Device Oxygen Flow Rate Vent Mode Vent Rate Mechanical Rate Pressure Support Vent Sodium 150 H 164 H* Potassium 4.8 2.9 L* Chloride 122 H 138 H Carbon Dioxide 17 L 16 L Anion Gap 11 11 BUN 236.6 H* 165.9 H* Creatinine 5.5 H 3.0 H Est GFR (CKD-EPI)AfAm 11.44 23.81 Est GFR (CKD-EPI)NonAf 9.87 20.54 POC Glucometer Random Glucose 264 H 96 Hemoglobin A1c % 6.3 Serum Osmolality Lactic Acid Calcium 8.7 5.5 L* Phosphorus 7.9 H Magnesium 3.9 H Total Bilirubin 0.8 AST 35 ALT 30 Alkaline Phosphatase 55 Creatine Kinase Creatine Kinase Index CK-MB (CK-2) Troponin I Total Protein 5.6 L Albumin 2.2 L Triglycerides Cholesterol Total LDL Cholesterol HDL Cholesterol Beta-Hydroxybutyrate TSH 2.89 D Urine Color Urine Appearance Urine pH Ur Specific [place] Urine Protein Urine Glucose (UA) Urine Ketones Urine Blood Urine Nitrite Urine Bilirubin Urine Urobilinogen Ur Leukocyte Esterase Urine WBC (Auto) Urine RBC (Auto) Urine Casts (Auto) U Epithel Cells (Auto) Urine Bacteria (Auto) Urine Osmolality Ur Random Sodium Ur Random Potassium Ur Random Chloride Salicylates Acetaminophen Alcohol, Quantitative B-Hydroxybutyrate Blood Type Antibody Screen 02/17/19 02/17/19 02/17/19 09:50 10:21 10:32 WBC RBC Hgb Hct MCV MCH MCHC RDW Plt Count MPV Absolute Neuts (auto) Neutrophils % Neutrophils % (Manual) Band Neutrophils % Lymphocytes % Lymphocytes % (Manual) Monocytes % Monocytes % (Manual) Eosinophils % Eosinophils % (Manual) Basophils % Basophils % (Manual) Nucleated RBC % Platelet Estimate PT with INR INR PTT (Actin FS) Anticoagulation Therapy No Result Required. Puncture Site Left radial ABG pH 7.32 L ABG pCO2 at Pt Temp 36.6 ABG pO2 at Pt Temp 90.7 ABG HCO3 18.2 L ABG O2 Sat (Measured) 96.1 ABG O2 Content 20.9 ABG Base Excess -6.8 L Santi Test Positive VBG pH POC VBG pCO2 POC VBG pO2 VBG HCO3 VBG O2 Sat ([place]ny) VBG Base Excess O2 Delivery Device Room air Oxygen Flow Rate 21% Vent Mode No Result Required. Vent Rate No Result Required. Mechanical Rate No Result Required. Pressure Support Vent No Result Required. Sodium 153 H Potassium 5.1 Chloride 126 H Carbon Dioxide 18 L Anion Gap 9 BUN 230.4 H* Creatinine 5.1 H Est GFR (CKD-EPI)AfAm 12.54 Est GFR (CKD-EPI)NonAf 10.82 POC Glucometer 112 Random Glucose 126 H Hemoglobin A1c % Serum Osmolality 409 H Lactic Acid Calcium 9.2 Phosphorus Magnesium Total Bilirubin AST ALT Alkaline Phosphatase Creatine Kinase Creatine Kinase Index CK-MB (CK-2) Troponin I Total Protein Albumin Triglycerides Cholesterol Total LDL Cholesterol HDL Cholesterol Beta-Hydroxybutyrate 1.0 TSH Urine Color Urine Appearance Urine pH Ur Specific [place] Urine Protein Urine Glucose (UA) Urine Ketones Urine Blood Urine Nitrite Urine Bilirubin Urine Urobilinogen Ur Leukocyte Esterase Urine WBC (Auto) Urine RBC (Auto) Urine Casts (Auto) U Epithel Cells (Auto) Urine Bacteria (Auto) Urine Osmolality Ur Random Sodium Ur Random Potassium Ur Random Chloride Salicylates Acetaminophen Alcohol, Quantitative B-Hydroxybutyrate Blood Type Antibody Screen CT head/CT-spine/CXR/Hip/pelvis Xrays/carotid duplex/renal US results reviewed Telemetry currently Sinus wojciech 60s with PVCs EKG NSR, low voltage ASSESSMENT AND PLAN: 68 yom with PMhx of DM, HTN, HLD, CKD (?baseline creatinine), obesity, bipolar disorder, depression, and anxiety, living alone brought to ED after being found down on the floor by brother for unclear period of time, noted with SMITA, electrolyte abnormalities, AMS. -AMS, suspect toxic metabolic encephalopathy from uremia/SMITA vs severe dehydration/electolyte abnormalities, r/o CVA/neurological process -Non oliguric SMITA, suspect from severe hypovolumia, from being on floor/poor oral intake/hyperglycemia +/- ATN -Hypernatremia suspect hypovolumic compounded by NS fluids repletion -Hyperchloremia, suspect iatrogenic from aggressive Normal Saline repletion -Hypokalemia -Severe hypocalcemia -New onset atrial fibrillation with RVR, now in NSR -falls+/- syncope -Right abdominal wound, ?Burn injury -Rhabdomyolysis -Metabolic acidosis, suspect from DKA/dehydration +/- lactic acidosis and non anion gap acidosis from renal dysfunction -DKA -HLD -Obesity -Bipolar disorder -Depression -Anxiety Plan: Change to hypotonic fluids D5w with 40meq KCL. Replete Ca aggressively. Cleared bedside swallow eval. Encourage free water intake as tolerated 300 ml q4 -6 hours Chou, strict I/Os, trend CPK Renal US noted Discussed with Dr. Beaver, agrees with the plan. Insulin drip till on hypotonic D5w, blood sugars stabilize and tolerating PO. check A1c. Endocrine consult with Dr. De La O. Reverted to NSR. D/c diltiazem drip. PO cardizem 30 mg TID. titrate as tolerated. Heparin drip Follow up 2D echo and cardiology input. Neurology w/u based on clinical course. MRI brain when clinically stable as unlikely to change active management and multiple possible etiologies for his current AMS. Neurology consult ordered, will follow up. Right abdominal wound ?Burn. Wound care consult. CT A/p to assess for trauma as abdominal exam limited currently. Trend CPK Reconcile home meds. DVTPPX heparin drip as above patient critically ill with multiple active issues. Continues to need close monitoring in ICU including BGM q1h, BMP q4 hours Care co-ordinated with ED, nephrology and ICU Total critical care time spent 46 min. Critical Care Total Critical Care Time (in minutes): 46 Critical Care Statement: The care of this patient involved high complexity decision making to prevent further life threatening deterioration of the patient 's condition and/or to evaluate & treat vital organ system(s) failure or risk of failure.
[2019-02-17 13:54] LABS: COCAINE, UR NEGATIVE ng/ml (CUTOFF=300); METHADONE, UR NEGATIVE ng/ml (CUTOFF=300); OPIATES, URI NEGATIVE ng/ml (CUTOFF=300); PHENCYCLIDINE,URINE NEGATIVE ng/ml (CUTOFF=25); URINE AMPHETAMINES NEGATIVE ng/ml (CUTOFF=500); URINE BARBITURATES NEGATIVE ng/ml (CUTOFF=200)
--- NOTE | 2019-02-17 14:19 | CONSULT ---
Consultation: REQUESTING PROVIDER: CONSULT REQUEST: We have been asked to medically evaluate this patient for determination of critical care management. HISTORY OF PRESENT ILLNESS: Patient unable to provide history. As per chart review, this is a 68 year old male with past medical history of kidney disease, DM, HTN, HLD, obesity, bipolar disorder, depression, and anxiety. He was brought in by EMS after being found on the ground in his apartment for an unknown period of time. According to the brother, the patient is normally fully independent and able to complete tasks. The brother reports he last saw the patient about 3 months ago. REVIEW OF SYSTEMS: Unable to provide accurate history CONSTITUTIONAL: Absent: fever, chills, diaphoresis, generalized weakness, malaise, loss of appetite, weight change HEENT: Absent: rhinorrhea, nasal congestion, throat pain, throat swelling, difficulty swallowing, mouth swelling, ear pain, eye pain, visual changes CARDIOVASCULAR: Absent: chest pain, syncope, palpitations, irregular heart rate, lightheadedness , peripheral edema RESPIRATORY: Absent: cough, shortness of breath, dyspnea with exertion, orthopnea, wheezing, stridor, hemoptysis GASTROINTESTINAL: Absent: abdominal pain, abdominal distension, nausea, vomiting, diarrhea, constipation, melena, hematochezia GENITOURINARY: Absent: dysuria, frequency, urgency, hesitancy, hematuria, flank pain, genital pain MUSCULOSKELETAL: Absent: myalgia, arthralgia, joint swelling, back pain, neck pain SKIN: Absent: rash, itching, pallor HEMATOLOGIC/IMMUNOLOGIC: Absent: easy bleeding, easy bruising, lymphadenopathy, frequent infections ENDOCRINE: Absent: unexplained weight gain, unexplained weight loss, heat intolerance, cold intolerance NEUROLOGIC: Absent: headache, focal weakness or paresthesias, dizziness, unsteady gait, seizure, mental status changes, bladder or bowel incontinence PSYCHIATRIC: Absent: anxiety, depression, suicidal or homicidal ideation, hallucinations. PHYSICAL EXAMINATION Last Vital Signs Temp Pulse Resp BP Pulse Ox 98.5 F 65 20 122/59 L 95 02/16/19 20:45 02/17/19 09:50 02/17/19 09:50 02/17/19 09:50 02/17/19 09:50 GENERAL: AOx1 EYES: DANIELITO, EOMI EARS, NOSE, THROAT: Crusting in mouth and lips LUNGS: Decreased breath sounds B/L, no crackles HEART: RRR ABDOMEN: Soft, distended, mild suprapubic tenderness, umbilical hernia present LOWER EXTREMITIES: 2+ pulses, warm, no edema NEUROLOGICAL: Motor 4/5 B/L, sensations intact PSYCHIATRIC: Unable to carry a conversation, has trouble recalling events from recent past SKIN: Grade 2 ulcer under right breast, abrasions on right and left elbows, right palm, and necrotic sacral ulcer Active Medications Generic Name Dose Route Start Last Admin Trade Name Freq PRN Reason Stop Dose Admin Calcitriol 0.25 mcg 02/17/19 10:00 Rocaltrol - PO DAILY [facility] Calcium Acetate 667 mg 02/17/19 08:00 Phoslo - PO TIDCM [facility] Chlorhexidine Gluconate 1 applic 02/17/19 22:00 Hibiclens For Decolonization - TP HS [facility] Clotrimazole 1 applic 02/17/19 10:00 Lotrimin 1% Cream - TP BID [facility] Diltiazem HCl 30 mg 02/17/19 14:00 Cardizem - PO TID [facility] Heparin Sodium (Porcine) 5,000 unit 02/17/19 10:12 Heparin - IVPUSH PRN PRN APTT (SECONDS) <40 Heparin Sodium (Porcine) 1,000 unit 02/17/19 10:12 Heparin - IVPUSH PRN PRN APTT (SECONDS) 40-49 Heparin Sodium/Dextrose 25,000 units in 500 mls @ 20 mls/hr 02/17/19 10:15 10:30 Heparin Infusion - IVPB 1,100 units/hr TITR [facility] 22 mls/hr Administration Protocol 1,000 UNITS/HR Insulin Human Regular 100 100 mls @ 13.6 mls/hr 02/17/19 12:45 units/ Sodium Chloride IVPB TITR [facility] Protocol 0.1 UNITS/KG/HR Potassium Chloride 40 meq/ 1,020 mls @ 100 mls/hr 02/17/19 12:34 Dextrose IVPB Q10H [facility] Mupirocin 1 applic 02/17/19 10:00 Bactroban Ointment (For Decolonization) - NS 02/22/19 09:59 BID [facility] ASSESSMENT/PLAN: 68 year old male with past medical history of kidney disease, DM, HTN, HLD, obesity, bipolar disorder, depression, and anxiety. He was brought in by EMS after being found on the ground in his apartment for an unknown period of time. According to the brother, the patient is normally fully independent and able to complete tasks. The brother reports he last saw the patient about 3 months ago. #Neuro - Head CT: No ischemia, fractures - NIH 14 on admission - Carotid Doppler: Plaque in RCC bifurcation - Neuro recs: MRI head #CVS - AFib with RVR - Echo: EF 60-65, mild LVH, normal LVSF, small pericardial effusion (<1cm) - Cardio recs: CHADVASC score 2-3, start heparin drip - On Heparin drip @1100 units - Cardizem PO, was previously on Cardizem drip - Cardio on board #Nephro - BUN/Cr: 230.4/5.1 - Nephro recs: continue with IVF, numbers improving, currently no need for HD - Chou in place, monitor I/O #Endo - Came in with Glucose 329, Beta Hydroxybutyrate 5.5, started on insulin drip - Insulin drip stopped, Beta Hydroxybutyrate 1.0, Glucose 126 and Anion gap 9 this morning - HbA1c 6.3 #ID - WBC was 12 on admission, currently 10.5 #FEN - D5 @ 100/HR - NPO except for meds #DVT PE - On Heparin drip #Dispo - Will continue to monitor Visit type - Emergency Visit Emergency Visit: Yes ED Registration Date: 02/16/19 Care time: The patient presented to the Emergency Department on the above date and was hospitalized for further evaluation of their emergent condition. - New Patient This patient is new to me today: Yes Date on this admission: 03/12/19 - Critical Care Critical Care patient: Yes Total Critical Care Time (in minutes): 38 Critical Care Statement: The care of this patient involved high complexity decision making to prevent further life threatening deterioration of the patient 's condition and/or to evaluate & treat vital organ system(s) failure or risk of failure. ATTENDING PHYSICIAN STATEMENT I saw and evaluated the patient. I reviewed the resident's note and discussed the case with the resident. I agree with the resident's findings and plan as documented. SUBJECTIVE: OBJECTIVE: ASSESSMENT AND PLAN:
[2019-02-17] MEDS ORDERED: dilTIAZem HCL 30 MG TABLET (FP) ONE ×2 (14:20→22:55)
[2019-02-17 14:33] LABS: URINE BENZODIAZEPINES POSITIVE ng/ml (CUTOFF=200)
--- NOTE | 2019-02-17 15:32 | PN ---
Teaching Attending Note Name of Resident: Hollis Floyd ATTENDING PHYSICIAN STATEMENT I saw and evaluated the patient. I reviewed the resident's note and discussed the case with the resident. I agree with the resident's findings and plan as documented. SUBJECTIVE: Patient seen and examined in the ER. 68 M, chronic kidney disease, DM, HTN, HLD , obesity, bipolar disorder, depression, and anxiety. Admitted via the ER after being found down in his apartment for an unknown period of time. Apparently the patient is capable to performing all of his ADLs. Presents confused and in profound ARF. Rapid AFib noted on monitor. Intake & Output 02/14/19 02/15/19 02/16/19 02/17/19 23:59 23:59 23:59 23:59 Output Total 400 Balance -400 Weight 300 lb Last Vital Signs Temp Pulse Resp BP Pulse Ox 98.5 F 65 20 122/59 L 95 02/16/19 20:45 02/17/19 09:50 02/17/19 09:50 02/17/19 09:50 02/17/19 09:50 Active Medications Calcitriol (Rocaltrol -) 0.25 mcg PO DAILY [facility] Calcium Acetate (Phoslo -) 667 mg PO TIDCM [facility] Chlorhexidine Gluconate (Hibiclens For Decolonization -) 1 applic TP HS [facility] Clotrimazole (Lotrimin 1% Cream -) 1 applic TP BID [facility] Diltiazem HCl (Cardizem -) 30 mg PO TID [facility] Heparin Sodium (Porcine) (Heparin -) 5,000 unit IVPUSH PRN PRN PRN Reason: APTT (SECONDS) <40 Heparin Sodium (Porcine) (Heparin -) 1,000 unit IVPUSH PRN PRN PRN Reason: APTT (SECONDS) 40-49 Heparin Sodium/Dextrose (Heparin Infusion -) 25,000 units in 500 mls @ 20 mls/ hr IVPB TITR [facility]; Protocol Last Admin: 02/17/19 10:30 Dose: 1,100 units/hr, 22 mls/hr Potassium Chloride 40 meq/ (Dextrose) 1,020 mls @ 100 mls/hr IVPB Q10H [facility] Mupirocin (Bactroban Ointment (For Decolonization) -) 1 applic NS BID [facility] Stop: 02/22/19 09:59 GENERAL: arousable and confused EYES: DANIELITO, EOMI EARS, NOSE, THROAT: Dry MM LUNGS: Decreased breath sounds at the bases, no wheezing HEART: RRR ABDOMEN: Soft, distended, mild suprapubic tenderness, umbilical hernia present LOWER EXTREMITIES: 2+ pulses, warm, no edema NEUROLOGICAL: Confused, non-focal PSYCHIATRIC: Confusion SKIN: Grade 2 ulcer under right chest, multiple abrasions, sacral ulcer Active Medications Generic Name Dose Route Start Last Admin Trade Name Freq PRN Reason Stop Dose Admin Calcitriol 0.25 mcg 02/17/19 10:00 Rocaltrol - PO DAILY [facility] Calcium Acetate 667 mg 02/17/19 08:00 Phoslo - PO TIDCM [facility] Chlorhexidine Gluconate 1 applic 02/17/19 22:00 Hibiclens For Decolonization - TP HS [facility] Clotrimazole 1 applic 02/17/19 10:00 Lotrimin 1% Cream - TP BID [facility] Diltiazem HCl 30 mg 02/17/19 14:00 Cardizem - PO TID [facility] Heparin Sodium (Porcine) 5,000 unit 02/17/19 10:12 Heparin - IVPUSH PRN PRN APTT (SECONDS) <40 Heparin Sodium (Porcine) 1,000 unit 02/17/19 10:12 Heparin - IVPUSH PRN PRN APTT (SECONDS) 40-49 Heparin Sodium/Dextrose 25,000 units in 500 mls @ 20 mls/hr 02/17/19 10:15 10:30 Heparin Infusion - IVPB 1,100 units/hr TITR [facility] 22 mls/hr Administration Protocol 1,000 UNITS/HR Insulin Human Regular 100 100 mls @ 13.6 mls/hr 02/17/19 12:45 units/ Sodium Chloride IVPB TITR [facility] Protocol 0.1 UNITS/KG/HR Potassium Chloride 40 meq/ 1,020 mls @ 100 mls/hr 02/17/19 12:34 Dextrose IVPB Q10H [facility] Mupirocin 1 applic 02/17/19 10:00 Bactroban Ointment (For Decolonization) - NS 02/22/19 09:59 BID [facility] Laboratory Results - last 24 hr 02/16/19 02/16/19 02/16/19 19:30 19:30 19:30 WBC 12.3 H RBC 5.54 Hgb 17.4 H Hct 53.5 H MCV 96.7 H MCH 31.5 MCHC 32.6 RDW 14.1 Plt Count 226 MPV 10.2 Absolute Neuts (auto) 11.0 H Neutrophils % 89.2 H Neutrophils % (Manual) 92.0 H Band Neutrophils % 4.0 Lymphocytes % 2.7 L Lymphocytes % (Manual) 4.0 L Monocytes % 7.4 Monocytes % (Manual) 0 L Eosinophils % 0.2 Eosinophils % (Manual) 0.0 Basophils % 0.5 Basophils % (Manual) 0.0 Nucleated RBC % 0 Platelet Estimate Adequate PT with INR 15.40 H INR 1.30 H PTT (Actin FS) 30.8 Anticoagulation Therapy Puncture Site ABG pH ABG pCO2 at Pt Temp ABG pO2 at Pt Temp ABG HCO3 ABG O2 Sat (Measured) ABG O2 Content ABG Base Excess Santi Test VBG pH POC VBG pCO2 POC VBG pO2 VBG HCO3 VBG O2 Sat (Tonny) VBG Base Excess O2 Delivery Device Oxygen Flow Rate Vent Mode Vent Rate Mechanical Rate Pressure Support Vent Sodium 145 Potassium 5.6 H Chloride 111 H Carbon Dioxide 20 L Anion Gap 15 BUN 272.9 H* Creatinine 6.7 H Est GFR (CKD-EPI)AfAm 9.01 Est GFR (CKD-EPI)NonAf 7.78 POC Glucometer Random Glucose 381 H Hemoglobin A1c % Serum Osmolality Lactic Acid Calcium 9.5 Phosphorus > 9.0 H* Magnesium Total Bilirubin 1.0 AST 25 ALT 32 Alkaline Phosphatase 64 Creatine Kinase 1101 H Creatine Kinase Index Cancelled CK-MB (CK-2) Cancelled Troponin I 0.05 Total Protein 6.6 Albumin 2.7 L Triglycerides 354 H Cholesterol 227 H Total LDL Cholesterol 143 H HDL Cholesterol 37 L Beta-Hydroxybutyrate TSH Urine Color Urine Appearance Urine pH Ur Specific [place] Urine Protein Urine Glucose (UA) Urine Ketones Urine Blood Urine Nitrite Urine Bilirubin Urine Urobilinogen Ur Leukocyte Esterase Urine WBC (Auto) Urine RBC (Auto) Urine Casts (Auto) U Epithel Cells (Auto) Urine Bacteria (Auto) Urine Osmolality Ur Random Creatinine Ur Random Sodium Ur Random Potassium Ur Random Chloride Salicylates Opiates Screen Methadone Screen Acetaminophen Barbiturate Screen Phencyclidine Screen Ur Amphetamines Screen MDMA (Ecstasy) Screen Benzodiazepines Screen Cocaine Screen U Marijuana (THC) Screen Alcohol, Quantitative B-Hydroxybutyrate Blood Type Antibody Screen 02/16/19 02/16/19 02/16/19 19:30 19:30 19:30 WBC RBC Hgb Hct MCV MCH MCHC RDW Plt Count MPV Absolute Neuts (auto) Neutrophils % Neutrophils % (Manual) Band Neutrophils % Lymphocytes % Lymphocytes % (Manual) Monocytes % Monocytes % (Manual) Eosinophils % Eosinophils % (Manual) Basophils % Basophils % (Manual) Nucleated RBC % Platelet Estimate PT with INR INR PTT (Actin FS) Anticoagulation Therapy Puncture Site ABG pH ABG pCO2 at Pt Temp ABG pO2 at Pt Temp ABG HCO3 ABG O2 Sat (Measured) ABG O2 Content ABG Base Excess Santi Test VBG pH POC VBG pCO2 POC VBG pO2 VBG HCO3 VBG O2 Sat (Tonny) VBG Base Excess O2 Delivery Device Oxygen Flow Rate Vent Mode Vent Rate Mechanical Rate Pressure Support Vent Sodium Potassium Chloride Carbon Dioxide Anion Gap BUN Creatinine Est GFR (CKD-EPI)AfAm Est GFR (CKD-EPI)NonAf POC Glucometer Random Glucose Hemoglobin A1c % Serum Osmolality Lactic Acid 1.8 Calcium Phosphorus Magnesium 4.7 H Total Bilirubin AST ALT Alkaline Phosphatase Creatine Kinase Creatine Kinase Index CK-MB (CK-2) Troponin I Total Protein Albumin Triglycerides Cholesterol Total LDL Cholesterol HDL Cholesterol Beta-Hydroxybutyrate TSH Urine Color Urine Appearance Urine pH Ur Specific [place] Urine Protein Urine Glucose (UA) Urine Ketones Urine Blood Urine Nitrite Urine Bilirubin Urine Urobilinogen Ur Leukocyte Esterase Urine WBC (Auto) Urine RBC (Auto) Urine Casts (Auto) U Epithel Cells (Auto) Urine Bacteria (Auto) Urine Osmolality Ur Random Creatinine Ur Random Sodium Ur Random Potassium Ur Random Chloride Salicylates Opiates Screen Methadone Screen Acetaminophen Barbiturate Screen Phencyclidine Screen Ur Amphetamines Screen MDMA (Ecstasy) Screen Benzodiazepines Screen Cocaine Screen U Marijuana (THC) Screen Alcohol, Quantitative < 3.0 B-Hydroxybutyrate Blood Type A NEGATIVE Antibody Screen Negative 02/16/19 02/16/19 02/16/19 19:30 19:30 19:30 WBC RBC Hgb Hct MCV MCH MCHC RDW Plt Count MPV Absolute Neuts (auto) Neutrophils % Neutrophils % (Manual) Band Neutrophils % Lymphocytes % Lymphocytes % (Manual) Monocytes % Monocytes % (Manual) Eosinophils % Eosinophils % (Manual) Basophils % Basophils % (Manual) Nucleated RBC % Platelet Estimate PT with INR INR PTT (Actin FS) Anticoagulation Therapy Puncture Site ABG pH ABG pCO2 at Pt Temp ABG pO2 at Pt Temp ABG HCO3 ABG O2 Sat (Measured) ABG O2 Content ABG Base Excess Santi Test VBG pH 7.28 L POC VBG pCO2 41.3 POC VBG pO2 < 49 H VBG HCO3 18.8 L VBG O2 Sat (Tonny) 53.6 L VBG Base Excess -7.4 L O2 Delivery Device Oxygen Flow Rate Vent Mode Vent Rate Mechanical Rate Pressure Support Vent Sodium Potassium Chloride Carbon Dioxide Anion Gap BUN Creatinine Est GFR (CKD-EPI)AfAm Est GFR (CKD-EPI)NonAf POC Glucometer Random Glucose Hemoglobin A1c % Serum Osmolality Lactic Acid Calcium Phosphorus Magnesium Total Bilirubin AST ALT Alkaline Phosphatase Creatine Kinase Creatine Kinase Index CK-MB (CK-2) Troponin I Total Protein Albumin Triglycerides Cholesterol Total LDL Cholesterol HDL Cholesterol Beta-Hydroxybutyrate TSH Urine Color Urine Appearance Urine pH Ur Specific [place] Urine Protein Urine Glucose (UA) Urine Ketones Urine Blood Urine Nitrite Urine Bilirubin Urine Urobilinogen Ur Leukocyte Esterase Urine WBC (Auto) Urine RBC (Auto) Urine Casts (Auto) U Epithel Cells (Auto) Urine Bacteria (Auto) Urine Osmolality Ur Random Creatinine Ur Random Sodium Ur Random Potassium Ur Random Chloride Salicylates < 1.7 L Opiates Screen Methadone Screen Acetaminophen --noresult-- Barbiturate Screen Phencyclidine Screen Ur Amphetamines Screen MDMA (Ecstasy) Screen Benzodiazepines Screen Cocaine Screen U Marijuana (THC) Screen Alcohol, Quantitative B-Hydroxybutyrate Cancelled Blood Type Antibody Screen 02/16/19 02/16/19 02/16/19 19:30 22:51 22:51 WBC RBC Hgb Hct MCV MCH MCHC RDW Plt Count MPV Absolute Neuts (auto) Neutrophils % Neutrophils % (Manual) Band Neutrophils % Lymphocytes % Lymphocytes % (Manual) Monocytes % Monocytes % (Manual) Eosinophils % Eosinophils % (Manual) Basophils % Basophils % (Manual) Nucleated RBC % Platelet Estimate PT with INR INR PTT (Actin FS) Anticoagulation Therapy Puncture Site ABG pH ABG pCO2 at Pt Temp ABG pO2 at Pt Temp ABG HCO3 ABG O2 Sat (Measured) ABG O2 Content ABG Base Excess Santi Test VBG pH POC VBG pCO2 POC VBG pO2 VBG HCO3 VBG O2 Sat (Tonny) VBG Base Excess O2 Delivery Device Oxygen Flow Rate Vent Mode Vent Rate Mechanical Rate Pressure Support Vent Sodium 147 H Potassium 5.0 Chloride 114 H Carbon Dioxide 20 L Anion Gap 13 BUN 255.5 H* Creatinine 6.2 H Est GFR (CKD-EPI)AfAm 9.90 Est GFR (CKD-EPI)NonAf 8.54 POC Glucometer Random Glucose 347 H Hemoglobin A1c % Serum Osmolality Lactic Acid Calcium 9.2 Phosphorus 8.6 H Magnesium 4.2 H Total Bilirubin AST ALT Alkaline Phosphatase Creatine Kinase 1169 H Cancelled Creatine Kinase Index Cancelled 0.3 CK-MB (CK-2) Cancelled 4.1 H Troponin I 0.04 Cancelled Total Protein Albumin Triglycerides Cholesterol Total LDL Cholesterol HDL Cholesterol Beta-Hydroxybutyrate 5.5 H TSH Urine Color Urine Appearance Urine pH Ur Specific [place] Urine Protein Urine Glucose (UA) Urine Ketones Urine Blood Urine Nitrite Urine Bilirubin Urine Urobilinogen Ur Leukocyte Esterase Urine WBC (Auto) Urine RBC (Auto) Urine Casts (Auto) U Epithel Cells (Auto) Urine Bacteria (Auto) Urine Osmolality Ur Random Creatinine Ur Random Sodium Ur Random Potassium Ur Random Chloride Salicylates Opiates Screen Methadone Screen Acetaminophen Barbiturate Screen Phencyclidine Screen Ur Amphetamines Screen MDMA (Ecstasy) Screen Benzodiazepines Screen Cocaine Screen U Marijuana (THC) Screen Alcohol, Quantitative B-Hydroxybutyrate Blood Type Antibody Screen 02/16/19 02/16/19 02/16/19 22:51 22:51 22:51 WBC RBC Hgb Hct MCV MCH MCHC RDW Plt Count MPV Absolute Neuts (auto) Neutrophils % Neutrophils % (Manual) Band Neutrophils % Lymphocytes % Lymphocytes % (Manual) Monocytes % Monocytes % (Manual) Eosinophils % Eosinophils % (Manual) Basophils % Basophils % (Manual) Nucleated RBC % Platelet Estimate PT with INR INR PTT (Actin FS) Anticoagulation Therapy Puncture Site ABG pH ABG pCO2 at Pt Temp ABG pO2 at Pt Temp ABG HCO3 ABG O2 Sat (Measured) ABG O2 Content ABG Base Excess Santi Test VBG pH 7.31 POC VBG pCO2 33.6 L POC VBG pO2 60.7 H VBG HCO3 16.4 L VBG O2 Sat (Tonny) 87.0 H VBG Base Excess -8.5 L O2 Delivery Device Oxygen Flow Rate Vent Mode Vent Rate Mechanical Rate Pressure Support Vent Sodium Potassium Chloride Carbon Dioxide Anion Gap BUN Creatinine Est GFR (CKD-EPI)AfAm Est GFR (CKD-EPI)NonAf POC Glucometer Random Glucose Hemoglobin A1c % Serum Osmolality Lactic Acid Calcium Phosphorus Cancelled Magnesium Cancelled Total Bilirubin AST ALT Alkaline Phosphatase Creatine Kinase Creatine Kinase Index CK-MB (CK-2) Troponin I Cancelled Total Protein Albumin Triglycerides Cholesterol Total LDL Cholesterol HDL Cholesterol Beta-Hydroxybutyrate TSH Urine Color Urine Appearance Urine pH Ur Specific [place] Urine Protein Urine Glucose (UA) Urine Ketones Urine Blood Urine Nitrite Urine Bilirubin Urine Urobilinogen Ur Leukocyte Esterase Urine WBC (Auto) Urine RBC (Auto) Urine Casts (Auto) U Epithel Cells (Auto) Urine Bacteria (Auto) Urine Osmolality Ur Random Creatinine Ur Random Sodium Ur Random Potassium Ur Random Chloride Salicylates Opiates Screen Methadone Screen Acetaminophen Barbiturate Screen Phencyclidine Screen Ur Amphetamines Screen MDMA (Ecstasy) Screen Benzodiazepines Screen Cocaine Screen U Marijuana (THC) Screen Alcohol, Quantitative B-Hydroxybutyrate Blood Type Antibody Screen 02/17/19 02/17/19 02/17/19 00:00 00:30 00:30 WBC RBC Hgb Hct MCV MCH MCHC RDW Plt Count MPV Absolute Neuts (auto) Neutrophils % Neutrophils % (Manual) Band Neutrophils % Lymphocytes % Lymphocytes % (Manual) Monocytes % Monocytes % (Manual) Eosinophils % Eosinophils % (Manual) Basophils % Basophils % (Manual) Nucleated RBC % Platelet Estimate PT with INR INR PTT (Actin FS) Anticoagulation Therapy Puncture Site ABG pH ABG pCO2 at Pt Temp ABG pO2 at Pt Temp ABG HCO3 ABG O2 Sat (Measured) ABG O2 Content ABG Base Excess Santi Test VBG pH POC VBG pCO2 POC VBG pO2 VBG HCO3 VBG O2 Sat (Tonny) VBG Base Excess O2 Delivery Device Oxygen Flow Rate Vent Mode Vent Rate Mechanical Rate Pressure Support Vent Sodium Potassium Chloride Carbon Dioxide Anion Gap BUN Creatinine Est GFR (CKD-EPI)AfAm Est GFR (CKD-EPI)NonAf POC Glucometer Random Glucose Hemoglobin A1c % Serum Osmolality Cancelled Lactic Acid Calcium Phosphorus Magnesium Total Bilirubin AST ALT Alkaline Phosphatase Creatine Kinase Creatine Kinase Index CK-MB (CK-2) Troponin I Total Protein Albumin Triglycerides Cholesterol Total LDL Cholesterol HDL Cholesterol Beta-Hydroxybutyrate Cancelled TSH Urine Color Yellow Urine Appearance Cloudy Urine pH 5.0 Ur Specific [place] 1.018 Urine Protein 1+ H Urine Glucose (UA) 2+ H Urine Ketones Negative Urine Blood 3+ H Urine Nitrite Negative Urine Bilirubin Negative Urine Urobilinogen 0.2 Ur Leukocyte Esterase Negative Urine WBC (Auto) 3 Urine RBC (Auto) 85 Urine Casts (Auto) 9 U Epithel Cells (Auto) 2.3 Urine Bacteria (Auto) 4.6 Urine Osmolality 571 Ur Random Creatinine Ur Random Sodium Ur Random Potassium Ur Random Chloride Salicylates Opiates Screen Methadone Screen Acetaminophen Barbiturate Screen Phencyclidine Screen Ur Amphetamines Screen MDMA (Ecstasy) Screen Benzodiazepines Screen Cocaine Screen U Marijuana (THC) Screen Alcohol, Quantitative B-Hydroxybutyrate Blood Type Antibody Screen 02/17/19 02/17/19 02/17/19 00:30 00:36 00:36 WBC RBC Hgb Hct MCV MCH MCHC RDW Plt Count MPV Absolute Neuts (auto) Neutrophils % Neutrophils % (Manual) Band Neutrophils % Lymphocytes % Lymphocytes % (Manual) Monocytes % Monocytes % (Manual) Eosinophils % Eosinophils % (Manual) Basophils % Basophils % (Manual) Nucleated RBC % Platelet Estimate PT with INR INR PTT (Actin FS) Anticoagulation Therapy Puncture Site ABG pH ABG pCO2 at Pt Temp ABG pO2 at Pt Temp ABG HCO3 ABG O2 Sat (Measured) ABG O2 Content ABG Base Excess Santi Test VBG pH POC VBG pCO2 POC VBG pO2 VBG HCO3 VBG O2 Sat (Tonny) VBG Base Excess O2 Delivery Device Oxygen Flow Rate Vent Mode Vent Rate Mechanical Rate Pressure Support Vent Sodium 147 H Potassium 5.2 H Chloride 113 H Carbon Dioxide 20 L Anion Gap 14 BUN 252.3 H* Creatinine 6.2 H Est GFR (CKD-EPI)AfAm 9.90 Est GFR (CKD-EPI)NonAf 8.54 POC Glucometer Random Glucose 329 H Hemoglobin A1c % Serum Osmolality Lactic Acid Calcium 8.9 Phosphorus Magnesium Total Bilirubin 0.9 AST 29 ALT 32 Alkaline Phosphatase 59 Creatine Kinase Creatine Kinase Index CK-MB (CK-2) Troponin I Total Protein 5.8 L Albumin 2.3 L Triglycerides Cholesterol Total LDL Cholesterol HDL Cholesterol Beta-Hydroxybutyrate TSH Urine Color Urine Appearance Urine pH Ur Specific [place] Urine Protein Urine Glucose (UA) Urine Ketones Urine Blood Urine Nitrite Urine Bilirubin Urine Urobilinogen Ur Leukocyte Esterase Urine WBC (Auto) Urine RBC (Auto) Urine Casts (Auto) U Epithel Cells (Auto) Urine Bacteria (Auto) Urine Osmolality Ur Random Creatinine 59.0 Ur Random Sodium 35 L Ur Random Potassium 31.0 Ur Random Chloride 24 L Salicylates Opiates Screen Methadone Screen Acetaminophen Barbiturate Screen Phencyclidine Screen Ur Amphetamines Screen MDMA (Ecstasy) Screen Benzodiazepines Screen Cocaine Screen U Marijuana (THC) Screen Alcohol, Quantitative B-Hydroxybutyrate Blood Type Antibody Screen 02/17/19 02/17/19 02/17/19 00:36 03:57 05:00 WBC RBC Hgb Hct MCV MCH MCHC RDW Plt Count MPV Absolute Neuts (auto) Neutrophils % Neutrophils % (Manual) Band Neutrophils % Lymphocytes % Lymphocytes % (Manual) Monocytes % Monocytes % (Manual) Eosinophils % Eosinophils % (Manual) Basophils % Basophils % (Manual) Nucleated RBC % Platelet Estimate PT with INR INR PTT (Actin FS) Anticoagulation Therapy Puncture Site ABG pH ABG pCO2 at Pt Temp ABG pO2 at Pt Temp ABG HCO3 ABG O2 Sat (Measured) ABG O2 Content ABG Base Excess Santi Test VBG pH POC VBG pCO2 POC VBG pO2 VBG HCO3 VBG O2 Sat (Tonny) VBG Base Excess O2 Delivery Device Oxygen Flow Rate Vent Mode Vent Rate Mechanical Rate Pressure Support Vent Sodium 156 H Potassium 3.9 Chloride 128 H Carbon Dioxide 18 L Anion Gap 9 BUN 204.9 H* Creatinine 4.0 H Est GFR (CKD-EPI)AfAm 16.82 Est GFR (CKD-EPI)NonAf 14.51 POC Glucometer 297 Random Glucose 219 H Hemoglobin A1c % Serum Osmolality Lactic Acid Calcium 6.2 L* Phosphorus Magnesium Total Bilirubin AST ALT Alkaline Phosphatase Creatine Kinase Creatine Kinase Index CK-MB (CK-2) Troponin I Total Protein Albumin Triglycerides Cholesterol Total LDL Cholesterol HDL Cholesterol Beta-Hydroxybutyrate TSH Urine Color Urine Appearance Urine pH Ur Specific [place] Urine Protein Urine Glucose (UA) Urine Ketones Urine Blood Urine Nitrite Urine Bilirubin Urine Urobilinogen Ur Leukocyte Esterase Urine WBC (Auto) Urine RBC (Auto) Urine Casts (Auto) U Epithel Cells (Auto) Urine Bacteria (Auto) Urine Osmolality Ur Random Creatinine Ur Random Sodium Ur Random Potassium Ur Random Chloride Salicylates Opiates Screen Negative Methadone Screen Negative Acetaminophen Barbiturate Screen Negative Phencyclidine Screen Negative Ur Amphetamines Screen Negative MDMA (Ecstasy) Screen Negative Benzodiazepines Screen Positive A* Cocaine Screen Negative U Marijuana (THC) Screen Positive A* Alcohol, Quantitative B-Hydroxybutyrate Blood Type Antibody Screen 02/17/19 02/17/19 02/17/19 05:13 05:38 05:38 WBC 10.5 H RBC 5.00 Hgb 16.0 Hct 48.5 MCV 96.9 H MCH 32.0 MCHC 33.0 RDW 14.3 Plt Count 179 D MPV 9.9 Absolute Neuts (auto) 9.4 H Neutrophils % 89.3 H Neutrophils % (Manual) Band Neutrophils % Lymphocytes % 3.6 L D Lymphocytes % (Manual) Monocytes % 6.6 Monocytes % (Manual) Eosinophils % 0.2 Eosinophils % (Manual) Basophils % 0.3 Basophils % (Manual) Nucleated RBC % 0 Platelet Estimate PT with INR 18.30 H INR 1.54 H PTT (Actin FS) 43.1 H Anticoagulation Therapy Puncture Site ABG pH ABG pCO2 at Pt Temp ABG pO2 at Pt Temp ABG HCO3 ABG O2 Sat (Measured) ABG O2 Content ABG Base Excess Santi Test VBG pH POC VBG pCO2 POC VBG pO2 VBG HCO3 VBG O2 Sat (Tonny) VBG Base Excess O2 Delivery Device Oxygen Flow Rate Vent Mode Vent Rate Mechanical Rate Pressure Support Vent Sodium 150 H Potassium 4.8 Chloride 122 H Carbon Dioxide 17 L Anion Gap 11 BUN 236.6 H* Creatinine 5.5 H Est GFR (CKD-EPI)AfAm 11.44 Est GFR (CKD-EPI)NonAf 9.87 POC Glucometer Random Glucose 264 H Hemoglobin A1c % Serum Osmolality Lactic Acid Calcium 8.7 Phosphorus 7.9 H Magnesium 3.9 H Total Bilirubin 0.8 AST 35 ALT 30 Alkaline Phosphatase 55 Creatine Kinase Creatine Kinase Index CK-MB (CK-2) Troponin I Total Protein 5.6 L Albumin 2.2 L Triglycerides Cholesterol Total LDL Cholesterol HDL Cholesterol Beta-Hydroxybutyrate TSH 2.89 D Urine Color Urine Appearance Urine pH Ur Specific [place] Urine Protein Urine Glucose (UA) Urine Ketones Urine Blood Urine Nitrite Urine Bilirubin Urine Urobilinogen Ur Leukocyte Esterase Urine WBC (Auto) Urine RBC (Auto) Urine Casts (Auto) U Epithel Cells (Auto) Urine Bacteria (Auto) Urine Osmolality Ur Random Creatinine Ur Random Sodium Ur Random Potassium Ur Random Chloride Salicylates Opiates Screen Methadone Screen Acetaminophen Barbiturate Screen Phencyclidine Screen Ur Amphetamines Screen MDMA (Ecstasy) Screen Benzodiazepines Screen Cocaine Screen U Marijuana (THC) Screen Alcohol, Quantitative B-Hydroxybutyrate Blood Type Antibody Screen 02/17/19 02/17/19 02/17/19 08:25 08:25 09:50 WBC RBC Hgb Hct MCV MCH MCHC RDW Plt Count MPV Absolute Neuts (auto) Neutrophils % Neutrophils % (Manual) Band Neutrophils % Lymphocytes % Lymphocytes % (Manual) Monocytes % Monocytes % (Manual) Eosinophils % Eosinophils % (Manual) Basophils % Basophils % (Manual) Nucleated RBC % Platelet Estimate PT with INR INR PTT (Actin FS) Anticoagulation Therapy Puncture Site ABG pH ABG pCO2 at Pt Temp ABG pO2 at Pt Temp ABG HCO3 ABG O2 Sat (Measured) ABG O2 Content ABG Base Excess Santi Test VBG pH POC VBG pCO2 POC VBG pO2 VBG HCO3 VBG O2 Sat (Tonny) VBG Base Excess O2 Delivery Device Oxygen Flow Rate Vent Mode Vent Rate Mechanical Rate Pressure Support Vent Sodium 164 H* Potassium 2.9 L* Chloride 138 H Carbon Dioxide 16 L Anion Gap 11 BUN 165.9 H* Creatinine 3.0 H Est GFR (CKD-EPI)AfAm 23.81 Est GFR (CKD-EPI)NonAf 20.54 POC Glucometer 112 Random Glucose 96 Hemoglobin A1c % 6.3 Serum Osmolality Lactic Acid Calcium 5.5 L* Phosphorus Magnesium Total Bilirubin AST ALT Alkaline Phosphatase Creatine Kinase Creatine Kinase Index CK-MB (CK-2) Troponin I Total Protein Albumin Triglycerides Cholesterol Total LDL Cholesterol HDL Cholesterol Beta-Hydroxybutyrate TSH Urine Color Urine Appearance Urine pH Ur Specific [place] Urine Protein Urine Glucose (UA) Urine Ketones Urine Blood Urine Nitrite Urine Bilirubin Urine Urobilinogen Ur Leukocyte Esterase Urine WBC (Auto) Urine RBC (Auto) Urine Casts (Auto) U Epithel Cells (Auto) Urine Bacteria (Auto) Urine Osmolality Ur Random Creatinine Ur Random Sodium Ur Random Potassium Ur Random Chloride Salicylates Opiates Screen Methadone Screen Acetaminophen Barbiturate Screen Phencyclidine Screen Ur Amphetamines Screen MDMA (Ecstasy) Screen Benzodiazepines Screen Cocaine Screen U Marijuana (THC) Screen Alcohol, Quantitative B-Hydroxybutyrate Blood Type Antibody Screen 02/17/19 02/17/19 02/17/19 10:21 10:32 13:30 WBC RBC Hgb Hct MCV MCH MCHC RDW Plt Count MPV Absolute Neuts (auto) Neutrophils % Neutrophils % (Manual) Band Neutrophils % Lymphocytes % Lymphocytes % (Manual) Monocytes % Monocytes % (Manual) Eosinophils % Eosinophils % (Manual) Basophils % Basophils % (Manual) Nucleated RBC % Platelet Estimate PT with INR INR PTT (Actin FS) Anticoagulation Therapy No Result Required. Puncture Site Left radial ABG pH 7.32 L ABG pCO2 at Pt Temp 36.6 ABG pO2 at Pt Temp 90.7 ABG HCO3 18.2 L ABG O2 Sat (Measured) 96.1 ABG O2 Content 20.9 ABG Base Excess -6.8 L Santi Test Positive VBG pH POC VBG pCO2 POC VBG pO2 VBG HCO3 VBG O2 Sat (Tonny) VBG Base Excess O2 Delivery Device Room air Oxygen Flow Rate 21% Vent Mode No Result Required. Vent Rate No Result Required. Mechanical Rate No Result Required. Pressure Support Vent No Result Required. Sodium 153 H Potassium 5.1 Chloride 126 H Carbon Dioxide 18 L Anion Gap 9 BUN 230.4 H* Creatinine 5.1 H Est GFR (CKD-EPI)AfAm 12.54 Est GFR (CKD-EPI)NonAf 10.82 POC Glucometer 158 Random Glucose 126 H Hemoglobin A1c % Serum Osmolality 409 H Lactic Acid Calcium 9.2 Phosphorus Magnesium Total Bilirubin AST ALT Alkaline Phosphatase Creatine Kinase Creatine Kinase Index CK-MB (CK-2) Troponin I Total Protein Albumin Triglycerides Cholesterol Total LDL Cholesterol HDL Cholesterol Beta-Hydroxybutyrate 1.0 TSH Urine Color Urine Appearance Urine pH Ur Specific [place] Urine Protein Urine Glucose (UA) Urine Ketones Urine Blood Urine Nitrite Urine Bilirubin Urine Urobilinogen Ur Leukocyte Esterase Urine WBC (Auto) Urine RBC (Auto) Urine Casts (Auto) U Epithel Cells (Auto) Urine Bacteria (Auto) Urine Osmolality Ur Random Creatinine Ur Random Sodium Ur Random Potassium Ur Random Chloride Salicylates Opiates Screen Methadone Screen Acetaminophen Barbiturate Screen Phencyclidine Screen Ur Amphetamines Screen MDMA (Ecstasy) Screen Benzodiazepines Screen Cocaine Screen U Marijuana (THC) Screen Alcohol, Quantitative B-Hydroxybutyrate Blood Type Antibody Screen ASSESSMENT/PLAN: Acute on CKD DM HTN HLD Obesity Bipolar disorder Depression Anxiety Rapid Afib Hyperglycemia Toxic Metabolic Encephalopathy R/O Encephalopathy due to Uremia R/O CVA IVF Spoke with Renal: No indication for HD at this time Close monitoring of electrolytes Neuro evaluation noted: recommended MRI when stable Rate control with CCB On IV Heparin drip O2 as needed to maintain saturation Strict I & O Glycemic control ICU monitoring Dr Nolan
--- NOTE | 2019-02-17 15:44 | ECHO ---
Name: JORDANA MALONE Exam:Adult Echocardiogram Study Date: 02/17/2019 02:36 PM Age: 68 yrs Reason For Study: a fib with [place] Height: 66 in Weight: 300 lb BSA: 2.4 m2 MMode/2D Measurements & Calculations IVSd: 1.2 cm Ao root diam: 4.0 cm LVIDd: 4.7 cm LA dimension: 3.6 cm LVIDs: 2.5 cm ACS: 2.0 cm LVPWd: 1.3 cm IVSs: 1.7 cm LVPWs: 1.4 cm EDV(Teich): 103.9 ml ESV(Teich): 23.0 ml Doppler Measurements & Calculations MV E max ayad: 45.7 cm/sec Ao V2 max: 141.6 cm/sec MV A max ayad: 65.2 cm/sec Ao max P.0 mmHg MV E/A: 0.70 Ao V2 mean: 93.6 cm/sec Ao mean P.0 mmHg Ao V2 VTI: 21.4 cm Procedure A complete two-dimensional transthoracic echocardiogram was performed (2D, M-mode, Doppler and color flow Doppler). Severely limited study. Left Ventricle The left ventricle is normal in size. There is mild concentric left ventricular hypertrophy. Left alicia tricular systolic function is normal. Ejection Fraction = 60-65%. No regional wall motion abnormalities noted. Right Ventricle The right ventricle is not well visualized. Atria The left atrial size is normal. Right atrium not well visualized. Mitral Valve The mitral valve is normal in structure and function. There is no mitral regurgitation noted. Tricuspid Valve The tricuspid valve is not well visualized. Aortic Valve There is mild aortic sclerosis.;. No aortic regurgitation is present. Pulmonic Valve The pulmonic valve is not well visualized. Great Vessels Moderate aortic root dilatation. Pericardium/Pleura Small pericardial effusion (<1cm). Interpretation Summary Severely limited study The left ventricle is normal in size. There is mild concentric left ventricular hypertrophy. Left ventricular systolic function is normal. No regional wall motion abnormalities noted. Ejection Fraction = 60-65%. The right ventricle is not well visualized. The left atrial size is normal. Right atrium not well visualized. There is mild aortic sclerosis. Moderate aortic root dilatation. Valvular regurgitations are not clearly seen due to poor acoustic window Small pericardial effusion (<1cm) Previous study is not available for comparison Andi Vázquez MD 02/17/2019 03:44 PM
[2019-02-17] MEDS: CALCITRIOL 0.25 MCG CAPSULE (FP) PO SCH (15:59)
[2019-02-17] MEDS: dilTIAZem HCL 30 MG TABLET (FP) PO SCH (16:00)
[2019-02-17] MEDS ORDERED: DEXTROSE 5%-WATER - 1,000 ML IV SCH (16:15)
--- NOTE | 2019-02-17 16:31 | PN ---
Teaching Attending Note Name of Resident: Ramu Hodge (Nephrology) ATTENDING PHYSICIAN STATEMENT I saw and evaluated the patient. I reviewed the resident's note and discussed the case with the resident. I agree with the resident's findings and plan as documented. Renal Pt is a 68 year old male with pmhx of ckd, dm, htn, hld obesity, bipola and depression whop was found down at home. He was brought to the hospital and found to be in renal failure and found to have mild rhabdo. He was also found to be in dka. His mental status has improved overnight. He is still however confused. pmhx ckd dm htn hld nkda social hx unablet to obtain family hx unable to obtain Current Medications Generic Name Dose Route Start Last Admin Trade Name Freq PRN Reason Stop Dose Admin Calcitriol 0.25 mcg 02/17/19 10:00 02/17/19 15:59 Rocaltrol - PO Not Given DAILY TAVARES Calcium Acetate 667 mg 02/17/19 08:00 02/17/19 16:00 Phoslo - PO Not Given TIDCM TAVARES Chlorhexidine Gluconate 1 applic 02/17/19 22:00 Hibiclens For Decolonization - TP HS TAVARES Clotrimazole 1 applic 02/17/19 10:00 Lotrimin 1% Cream - TP BID TAVARES Diltiazem HCl 30 mg 02/17/19 14:00 02/17/19 16:00 Cardizem - PO Not Given TID TAVARES Heparin Sodium (Porcine) 5,000 unit 02/17/19 10:12 Heparin - IVPUSH PRN PRN APTT (SECONDS) <40 Heparin Sodium (Porcine) 1,000 unit 02/17/19 10:12 Heparin - IVPUSH PRN PRN APTT (SECONDS) 40-49 Heparin Sodium/Dextrose 25,000 units in 500 mls @ 20 mls/hr 02/17/19 10:15 10:30 Heparin Infusion - IVPB 1,100 units/hr TITR TAVARES 22 mls/hr Administration Protocol 1,000 UNITS/HR Dextrose 1,000 mls @ 100 mls/hr 02/17/19 16:15 D5w - IV Q10H TAVARES Mupirocin 1 applic 02/17/19 10:00 Bactroban Ointment (For Decolonization) - NS 02/22/19 09:59 BID TAVARES Laboratory Tests 02/16/19 02/16/19 02/17/19 19:30 22:51 00:36 BUN 272.9 H* Creatinine 6.7 H 6.2 H 6.2 H Calcium 02/17/19 02/17/19 02/17/19 05:00 05:38 10:21 BUN 230.4 H* Creatinine 4.0 H 5.5 H 5.1 H Calcium 9.2 cardio s1s2 reg pulm clear GI soft obese ext neg edema neuro lethargy skin neg rash Impression 1. SMITA 2. rhabdo 3. dka 4. altered mental status Plan - pt is still profoundly dehydrated - pt is making urine - lytes are stable - renal function is improving - will cont with fluids and monitor closely - may need HD however he is unable to give consent at this time - admit to ICU
--- NOTE | 2019-02-17 16:45 | CONSULT ---
Admitting History and Physical - Primary Care Physician PCP: Jessica Thomson - Admission History of Present Illness: Patient is a 68 year old male with history of CKD, hypertension, non-insulin dependent diabetes mellitus, hyperlipidemia, bipolar disorder, presents to ED after being found down on floor. Pt came to ED disheveled, oriented only to self, and minimally communicative . CT head negative for acute intracranial pathology. Noted to be in Afib NPO. NGT inserted but removed by pt. Found profoundly dehydrated. 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 Other Social History: never , no children per pt's friend History - Admission Reason For Visit: RENAL FAILURE UREMIA RHABDOMYOLYSIS CEREBROVASCULA - Diagnostics X-ray: Report Reviewed CT Scan: Report Reviewed - General Mental Status: Awake and Alert, Confused Attention: Distractible, Moderate Impairment Ability to Follow Directions: Fair (intermittent for simple 1 stage commands) Head/Neck Control: Fair - Hearing Hearing: Functional Speech Evaluation - Communication Primary Language: ROMANSH Oral Expression Ability: Yes: Moderate Impairment - Speech Production Able to Make Needs Known: Yes: Moderately Impaired Intelligibility: Yes: WNL - Speech Characteristics Voice Loudness: Normal Voice Pitch: Yes: Normal Voice Phonatory-based Quality: Yes: Normal Speech Pattern: Impaired Speech Clarity: < 100% Nasal Resonance: Normal Articulation: Yes: Precise Rate of Speech: Intact - Language/Auditory Comprehension Observation: Able to respond to yes/no queries: Yes (intermittent), Yes/No Confusion: Yes, Comprehends Conversational Speech: Yes (simple), Benefits from Repetiton: Yes - Language/Verbal Expression Aphasia: Yes: Fluent, Paraphrasic Errors, Neologisms Able to Respond to Simple Queries: Yes: Moderately Impaired Able to Communicate Wants and Needs: Yes: Moderately Impaired Functional Communication Status: Yes: Moderately Impaired - Swallow Evaluation/Bedside Assessment Current Nutritional Intake: NPO, Other (ngt free water) Oral Secretions: Yes: Dryness Dentition: Yes: Adequate Facial Symmetry at Rest: Symmetrical Facial Symmetry on Retraction: Symmetrical Facial Movement: Controlled Sensation: Normal Against Resistance Opening: Normal Against Resistance Closing: Normal Pucker Lips: Normal Smile: Normal Lingual Movement: Normal, Symmetric Lingual Speed of Movement: Normal Lingual Movement Strgth Against Opposition: Normal Lingual Movement Characteristics: Normal Laryngeal Elevation: WFL Laryngeal Movement: Able to Palpate Rate of Intake: WFL Bolus Size: WFL Labial Seal: WFL Oral Prep Time: WFL A-P Transit: WFL Pocketing: None Timing of Swallow: WFL Coughing/Throat Clear: No Change in Voice: No Recommendations - Speech Evaluation, Impression/Plan Impression: Confused, disoriented, fluent with paraphasic errors,disjointed tangential responses.w/u in progress regarding etiology. Speech is precise. Swallowing is brisk. 3 oz water test (-) - Dysphagia Impressions/Plan Dysphagia Impressions: Minimal Impairment *Silent aspiration: cannot be R/O at bedside Dysphagia Treatment Plan: Small Bites, Chin Tuck/Down, Clear Pocket Food, Trial Feedings, 1/2 tsp. at a time, Elevate HOB during feed, Other (assist with meals. Sit fully upright.) Recommendations: Other (Trial PO. Will assess for diet upgrade once he can be positioned upright fully in bed (now on stretcher in ED)) - Recommendations Diet Consistency: Dysphagia Minced Medication Administration: Whole with water (give in applesauce) Liquids: Thin Liquids (monitor tolerance.)
[2019-02-17 17:10] LABS: ALBUMIN 2.3 g/dl (3.4-5.0); CALCIUM 9.3 mg/dL (8.5-10.1); CREATININE 5.1 mg/dL (0.55-1.3); POTASSIUM 5.2 mmol/L (3.5-5.1); TOT PROT 5.8 g/dl (6.4-8.2)
[2019-02-17] MEDS: HEPARIN NA (PORCINE) 5,000 UNITS/ML 1ML VIAL IVPUSH PRN (17:17)
[2019-02-17 17:27] LABS: CALCIUM 9.2 mg/dL (8.5-10.1); MAGNESIUM 3.8 mg/dL (1.8-2.4); POTASSIUM 5.2 mmol/L (3.5-5.1)
--- NOTE | 2019-02-17 17:40 | PN ---
Progress Note (short form) - Note Progress Note: Laboratory Tests 02/17/19 16:15 Sodium 151 H Potassium 5.2 H Carbon Dioxide 17 L BUN 236.1 H* Creatinine 5.1 H - reviewed labs - called and discussed with his brother. He says that he would like to talk to his sister before they decide about dialysis. He also says that his brother may not have wanted to dialyze as they did discuss this in the past. 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
[2019-02-17 17:42] LABS: BLOOD UREA NITROGEN 220.5 mg/dL (7-18)
[2019-02-17 18:15] LABS: BLOOD UREA NITROGEN 236.1 mg/dL (7-18)
--- NOTE | 2019-02-17 19:29 | PN ---
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 Urine Bacteria (Auto) Urine Osmolality Ur Random Creatinine Ur Random Sodium Ur Random Potassium Ur Random Chloride Salicylates Opiates Screen Methadone Screen Acetaminophen Barbiturate Screen Phencyclidine Screen Ur Amphetamines Screen MDMA (Ecstasy) Screen Benzodiazepines Screen Cocaine Screen U Marijuana (THC) Screen Alcohol, Quantitative B-Hydroxybutyrate Blood Type Antibody Screen Active Medications Generic Name Dose Route Start Last Admin Trade Name Freq PRN Reason Stop Dose Admin Calcitriol 0.25 mcg 02/17/19 10:00 02/17/19 15:59 Rocaltrol - PO Not Given DAILY [facility] Calcium Acetate 667 mg 02/17/19 08:00 02/17/19 18:08 Phoslo - PO 667 mg TIDCM [facility] Administration Chlorhexidine Gluconate 1 applic 02/17/19 22:00 Hibiclens For Decolonization - TP HS [facility] Clotrimazole 1 applic 02/17/19 10:00 Lotrimin 1% Cream - TP BID [facility] Diltiazem HCl 30 mg 02/17/19 14:00 02/17/19 16:00 Cardizem - PO Not Given TID [facility] Heparin Sodium (Porcine) 5,000 unit 02/17/19 10:12 Heparin - IVPUSH PRN PRN APTT (SECONDS) <40 Heparin Sodium (Porcine) 1,000 unit 02/17/19 10:12 02/17/19 17:17 Heparin - IVPUSH 1,000 unit PRN PRN Administration APTT (SECONDS) 40-49 Heparin Sodium/Dextrose 25,000 units in 500 mls @ 20 mls/hr 02/17/19 10:15 10:30 Heparin Infusion - IVPB 1,100 units/hr TITR [facility] 22 mls/hr Administration Protocol 1,000 UNITS/HR Sodium Chloride 1,000 mls @ 150 mls/hr 02/17/19 16:45 02/17/19 18:08 1/2 Normal Saline IV 150 mls/hr ASDIR [facility] Administration Insulin Aspart 1 vial 02/17/19 22:00 Novolog Vial Sliding Scale - SQ ACHS [facility] Protocol Mupirocin 1 applic 02/17/19 10:00 Bactroban Ointment (For Decolonization) - NS 02/22/19 09:59 BID [facility] ASSESSMENT/PLAN: 68 M with PMH of DM, HTN, HLD, CKD, obesity, bipolar disorder, depression, and anxiety, who was brought to ED after being found down on the floor by brother with AMS. 1) AMS -Likely a toxic metabolic encephalopathy from uremia or electrolyte abnormalities or DKA -F/U MRI -CT head negative -04/03 NS @150 ml/hr -Hemodialysis as per nephrology and family decision -Strict I/O -Rhabdomyolysis observed, trend CPK -Renal U/S unremarkable -Insulin drip held -Sliding scale insulin -Cleared bedside swallow eval. Can take PO pills -Free water 300 ml/6 hrs -Follow BMP -Check A1C -Endocrinology consulted, appreciate recs -Nephrology consulted, appreciate recs -Neurology consulted, appreciate recs 2)New onset Afib -Replete Ca aggressively -Cardizem PO 30 mg TID PRN -Heparin drip -Cardiology consulted, appreciate recs -Echo shows normal EF -Normal sinus now 3)History of Bipolar disorder -Continue home meds 4) Wounds on lower chest, upper abdomen -Wound Care consulted, appreciate recs -pain management PRN Dispo: ICU monitoring F: 04/03 NS @ 150 ml/hr E: Trend CMP. Replete as needed N: Regular diet, Visit type - Emergency Visit Emergency Visit: Yes ED Registration Date: 02/16/19 Care time: The patient presented to the Emergency Department on the above date and was hospitalized for further evaluation of their emergent condition. - New Patient This patient is new to me today: Yes Date on this admission: 02/17/19 - Critical Care Critical Care patient: Yes Total Critical Care Time (in minutes): 35 Critical Care Statement: The care of this patient involved high complexity decision making to prevent further life threatening deterioration of the patient 's condition and/or to evaluate & treat vital organ system(s) failure or risk of failure. ATTENDING PHYSICIAN STATEMENT I saw and evaluated the patient. I reviewed the resident's note and discussed the case with the resident. I agree with the resident's findings and plan as documented. SUBJECTIVE: OBJECTIVE: ASSESSMENT AND PLAN:
[2019-02-17] MEDS ORDERED: INSULIN (NOVOLOG) ASPART 100 UNITS/ML 10ML VIAL ONE (22:55)
[2019-02-17 22:58] LABS: ALBUMIN 2.2 g/dl (3.4-5.0); CALCIUM 9.2 mg/dL (8.5-10.1); CREATININE 4.9 mg/dL (0.55-1.3); POTASSIUM 5.1 mmol/L (3.5-5.1); TOT PROT 5.6 g/dl (6.4-8.2)
[2019-02-17 23:02] LABS: BLOOD UREA NITROGEN 213.3 mg/dL (7-18)
--- NOTE | 2019-02-17 23:24 | CONSULT ---
Consult Consult Specialty:: endocrine Referred by:: sonya wagoner Resident Reason for Consultation:: dka/ dehydration/ hypovolemia. renal failure - History of Present Illness Chief Complaint: confused lethargic History of Present Illness: 68 year old male with history of Type 2 DM, CKD, hypertension, hyperlipidemia , bipolar disorder, found down on the ground in his apartment by police after wellness call was placed by patient's brother. IN ED pt was confused, and minimally communicative. CT head negative for acute intracranial pathology. 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 Home Medications - Allergies Allergies/Adverse Reactions: Allergies Allergy/AdvReac Type Severity Reaction Status Date / Time No Allergy Information Allergy Verified 02/16/19 19:16 Available - Home Medications Home Medications: Ambulatory Orders Allopurinol [Zyloprim -] 200 mg DAILY 02/17/19 Amlodipine Besylate 10 mg PO DAILY 02/17/19 Diazepam [Valium] 10 mg PO TID 02/17/19 Insulin Aspart [Novolog] 2 units TID 02/17/19 Insulin Glargine,Hum.rec.anlog [Toujeo Solostar] 95 unit HS 02/17/19 Lamotrigine 100 mg DAILY 02/17/19 Losartan/Hydrochlorothiazide [Losartan-Hctz 100-12.5 mg Tab] 1 tablet DAILY Quetiapine Fumarate [Seroquel -] 200 mg PO HS 02/17/19 Physical Exam Vital Signs: Vital Signs Temperature 98.5 F 02/16/19 20:45 Pulse Rate 65 02/17/19 09:50 Respiratory Rate 20 02/17/19 09:50 Blood Pressure 122/59 L 02/17/19 09:50 O2 Sat by Pulse Oximetry (%) 95 02/17/19 09:50 Constitutional: Yes: Obese Eyes: Yes: EOM Intact HENT: Yes: Atraumatic Neck: Yes: Trachea Midline Cardiovascular: Yes: Tachycardia Respiratory: Yes: CTA Bilaterally Gastrointestinal: Yes: Normal Bowel Sounds ...Rectal Exam: Yes: Deferred Renal/: Yes: Anuria Musculoskeletal: Yes: Joint Stiffness, Muscle Weakness Extremities: Yes: Delayed Capillary Refill, Erythema Edema: No Neurological: Yes: Confusion Psychiatric: Yes: Alert, Agitated Labs: CBC, BMP 02/17/19 05:38 02/17/19 21:50 Problem List - Problems (1) DKA (diabetic ketoacidoses) Problems reviewed: Yes Code(s): E11.10 - TYPE 2 DIABETES MELLITUS WITH KETOACIDOSIS WITHOUT COMA Qualifiers: Diabetes mellitus type: type 2 (2) HTN (hypertension) Problems reviewed: Yes Code(s): I10 - ESSENTIAL (PRIMARY) HYPERTENSION (3) Hypercholesterolemia Problems reviewed: Yes Code(s): E78.00 - PURE HYPERCHOLESTEROLEMIA, UNSPECIFIED (4) Leukocytosis Code(s): D72.829 - ELEVATED WHITE BLOOD CELL COUNT, UNSPECIFIED (5) Renal failure Problems reviewed: Yes Code(s): N19 - UNSPECIFIED KIDNEY FAILURE (6) Rhabdomyolysis Code(s): M62.82 - RHABDOMYOLYSIS (7) Uremia Code(s): N19 - UNSPECIFIED KIDNEY FAILURE Assessment/Plan Current Active Problems DKA, HYPERCHLOREMIC METABOLIC ACIDOSIS Bipolar disorder (Acute) HTN (hypertension) (Acute) Hypercholesterolemia (Acute) Leukocytosis (Acute) Renal failure (Acute) Rhabdomyolysis (Acute) Stroke (Acute) Uremia (Acute) Abnormal Lab Results 02/16/19 02/16/19 02/17/19 22:51 22:51 00:30 WBC MCV Absolute Neuts (auto) Neutrophils % Lymphocytes % PT with INR INR PTT (Actin FS) ABG pH ABG HCO3 ABG Base Excess POC VBG pCO2 33.6 L POC VBG pO2 60.7 H VBG HCO3 16.4 L VBG O2 Sat (Tonny) 87.0 H VBG Base Excess -8.5 L Sodium 147 H Potassium Chloride 114 H Carbon Dioxide 20 L BUN 255.5 H* Creatinine 6.2 H Random Glucose 347 H Serum Osmolality Calcium Phosphorus 8.6 H Magnesium 4.2 H Creatine Kinase 1169 H CK-MB (CK-2) 4.1 H Total Protein Albumin Beta-Hydroxybutyrate 5.5 H Urine Protein 1+ H Urine Glucose (UA) 2+ H Urine Blood 3+ H Ur Random Sodium Ur Random Chloride Benzodiazepines Screen U Marijuana (THC) Screen 02/17/19 02/17/19 02/17/19 00:30 00:36 00:36 WBC MCV Absolute Neuts (auto) Neutrophils % Lymphocytes % PT with INR INR PTT (Actin FS) ABG pH ABG HCO3 ABG Base Excess POC VBG pCO2 POC VBG pO2 VBG HCO3 VBG O2 Sat (Tonny) VBG Base Excess Sodium 147 H Potassium 5.2 H Chloride 113 H Carbon Dioxide 20 L BUN 252.3 H* Creatinine 6.2 H Random Glucose 329 H Serum Osmolality Calcium Phosphorus Magnesium Creatine Kinase CK-MB (CK-2) Total Protein 5.8 L Albumin 2.3 L Beta-Hydroxybutyrate Urine Protein Urine Glucose (UA) Urine Blood Ur Random Sodium 35 L Ur Random Chloride 24 L Benzodiazepines Screen Positive A* U Marijuana (THC) Screen Positive A* 02/17/19 02/17/19 02/17/19 05:00 05:13 05:38 WBC 10.5 H MCV 96.9 H Absolute Neuts (auto) 9.4 H Neutrophils % 89.3 H Lymphocytes % 3.6 L D PT with INR 18.30 H INR 1.54 H PTT (Actin FS) 43.1 H ABG pH ABG HCO3 ABG Base Excess POC VBG pCO2 POC VBG pO2 VBG HCO3 VBG O2 Sat (Tonny) VBG Base Excess Sodium 156 H Potassium Chloride 128 H Carbon Dioxide 18 L BUN 204.9 H* Creatinine 4.0 H Random Glucose 219 H Serum Osmolality Calcium 6.2 L* Phosphorus Magnesium Creatine Kinase CK-MB (CK-2) Total Protein Albumin Beta-Hydroxybutyrate Urine Protein Urine Glucose (UA) Urine Blood Ur Random Sodium Ur Random Chloride Benzodiazepines Screen U Marijuana (THC) Screen 02/17/19 02/17/19 02/17/19 05:38 08:25 10:21 WBC MCV Absolute Neuts (auto) Neutrophils % Lymphocytes % PT with INR INR PTT (Actin FS) ABG pH ABG HCO3 ABG Base Excess POC VBG pCO2 POC VBG pO2 VBG HCO3 VBG O2 Sat (Tonny) VBG Base Excess Sodium 150 H 164 H* 153 H Potassium 2.9 L* Chloride 122 H 138 H 126 H Carbon Dioxide 17 L 16 L 18 L BUN 236.6 H* 165.9 H* 230.4 H* Creatinine 5.5 H 3.0 H 5.1 H Random Glucose 264 H 126 H Serum Osmolality 409 H Calcium 5.5 L* Phosphorus 7.9 H Magnesium 3.9 H Creatine Kinase CK-MB (CK-2) Total Protein 5.6 L Albumin 2.2 L Beta-Hydroxybutyrate Urine Protein Urine Glucose (UA) Urine Blood Ur Random Sodium Ur Random Chloride Benzodiazepines Screen U Marijuana (THC) Screen 02/17/19 02/17/19 02/17/19 10:32 14:30 16:15 WBC MCV Absolute Neuts (auto) Neutrophils % Lymphocytes % PT with INR INR PTT (Actin FS) 39.9 H ABG pH 7.32 L ABG HCO3 18.2 L ABG Base Excess -6.8 L POC VBG pCO2 POC VBG pO2 VBG HCO3 VBG O2 Sat (Tonny) VBG Base Excess Sodium 152 H Potassium 5.2 H Chloride 123 H Carbon Dioxide 17 L BUN 220.5 H* Creatinine 5.0 H Random Glucose 257 H Serum Osmolality Calcium Phosphorus 8.0 H Magnesium 3.8 H Creatine Kinase CK-MB (CK-2) Total Protein Albumin Beta-Hydroxybutyrate Urine Protein Urine Glucose (UA) Urine Blood Ur Random Sodium Ur Random Chloride Benzodiazepines Screen U Marijuana (THC) Screen 02/17/19 02/17/19 02/17/19 16:15 21:50 21:50 WBC MCV Absolute Neuts (auto) Neutrophils % Lymphocytes % PT with INR INR PTT (Actin FS) 46.7 H ABG pH ABG HCO3 ABG Base Excess POC VBG pCO2 POC VBG pO2 VBG HCO3 VBG O2 Sat (Tonny) VBG Base Excess Sodium 151 H 151 H Potassium 5.2 H Chloride 122 H 121 H Carbon Dioxide 17 L 19 L BUN 236.1 H* 213.3 H* Creatinine 5.1 H 4.9 H Random Glucose 259 H 256 H Serum Osmolality Calcium Phosphorus Magnesium Creatine Kinase 950 H CK-MB (CK-2) 5.0 H Total Protein 5.8 L 5.6 L Albumin 2.3 L 2.2 L Beta-Hydroxybutyrate Urine Protein Urine Glucose (UA) Urine Blood Ur Random Sodium Ur Random Chloride Benzodiazepines Screen U Marijuana (THC) Screen Laboratory Tests 02/16/19 22:51 Beta-Hydroxybutyrate 5.5 H PLAN: IVFLUID REHYDRATION NS RECHECK BMP 4HRS FINGER STICK QID COVERAGE ONCE TAKING PO START LEVEMIR 10 UNITS AM LIKELY REQUIRE LESS INSULIN GIVEN JAIR
[2019-02-18] MEDS: dilTIAZem HCL 30 MG TABLET (FP) PO SCH ×2 (00:19→14:03)
[2019-02-18] MEDS: INSULIN SLIDING SCALE (NOVOLOG) 1 VIAL SQ SCH ×4 (00:23→22:00)
[2019-02-18] MEDS ORDERED: NALOXONE HCL 0.4 MG/ML VIAL IVPUSH ONE (07:18)
[2019-02-18 07:26] LABS: ARTERIAL BLD GAS O2 SATURATION 96.8 % (95-98); ARTERIAL BLOOD GAS PO2 121 mmHg (80-100)
[2019-02-18 07:33] LABS: ALLENS TEST POSITIVE
[2019-02-18 07:39] LABS: ARTERIAL BLOOD GAS PCO2 73.6 mmHg (35-45); ARTERIAL BLOOD GAS pH 7.12 (7.35-7.45)
[2019-02-18] MEDS ORDERED: SODIUM BICARBONATE 8.4% 50 MEQ/50 ML VIAL ONE (07:49)
[2019-02-18] MEDS ORDERED: RAPID SEQUENCE INTUBATION KIT NR ONE (07:49)
--- NOTE | 2019-02-18 08:09 | PROC ---
Intubation - Intubation Reason for Intubation: Respiratory Insufficiency Time of Intubation: 08:00 Intubation Method: orotracheal Blade used: Mac Tube Size (cm): 7.5 Tube position @ lip (cm): 24 Tube position confirmed by: Direct visualization, CO2 detector, Chest x-ray, Breath sounds Breath Sounds after Intubation: equal Post Intubation Xray: Yes
[2019-02-18] MEDS ORDERED: ROCURONIUM BROMIDE 50 MG/5 ML VIAL IVPUSH ONE (08:14)
[2019-02-18] MEDS ORDERED: ETOMIDATE 20 MG/10 ML AMPUL IVPUSH ONE (08:14)
[2019-02-18] MEDS ORDERED: SODIUM BICARBONATE 8.4% 50 MEQ/50 ML DISP.SYRIN IVPUSH ONE (08:17)
[2019-02-18 08:35] LABS: BASO % 0.1 % (0-2.0); EOS % 0.2 % (0-4.5); HEMATOCRIT 45.1 % (35.4-49); HEMOGLOBIN 14.5 GM/dL (11.7-16.9); LYMPH % 1.5 % (8-40); MCH 31.6 pg (25.7-33.7); MCHC 32.2 g/dl (32.0-35.9); MEAN CELL VOLUME 98.1 fl (80-96); MEAN PLT VOLUME 9.9 fl (7.5-11.1); MONO % 6.1 % (3.8-10.2); NEUT % 92.1 % (42.8-82.8); PLATELET COUNT 203 K/MM3 (134-434); RDW 14.1 % (11.9-15.9); WHITE BLOOD COUNT 11.7 K/mm3 (4.0-10.0)
--- NOTE | 2019-02-18 09:03 | PN ---
Progress Note (short form) - Note Progress Note: Neurology CHIEF COMPLAINT: CVA PCP: unknown, psychiatrist Dr. Steve Navarro HISTORY OF PRESENT ILLNESS: Mr. Burnette is a 68 y/o man with a pmhx of kidney disease, DM, HTN, HLD, obesity, bipolar disorder, depression, and anxiety who is BIBA after being found down in his apt for an unknown period of time. History obtained from chart as pt was confused on exam and was unable to answer questions. Per the patient's brother, the pt had an appointment with a friend I gave admission and when he did not show up the pt's friend called the police to do a wellness check (the pt did not name the friend). Police found the pt down in his apartment and he was brought to the hospital by EMS, unclear how long the pt was down for. Per the patient's brother, the pt is normally fully independent and able to complete all his ADLs unassisted. He lives alone in an apartment in [facility] and per the brother the pt keeps up with all his doctor appointments and takes his medications as prescribed. The pt's brother was unable to state what medicines his brother uses or which pharmacy his brother uses however states that his brother's psychiatrist is Dr. Steve Navarro and that he may know the answers to these questions. The brother reports he last saw the patient about 3 months ago. I was contacted by the emergency department for further evaluation as the patient demonstrated an NIH stroke scale of 14. Time of onset was unknown and additionally patient with generalized confusion and weakness more so than just focal deficits and therefore concern for possible underlying toxic metabolic, infectious, diffuse process. CT head without acute changes but there was multiple metabolic derangements on lab work. White blood cell count was 12 on admission. BUN/ creatinine was 252//6.2 on admission. WBC, BUN/Cr. trending down this am. Lastly , blood glucose was 329 on admission, continues to be elevated this am at 256. Arousable but still confused and moves extremities grossly during my evaluation but not participating in confrontation testing. Carotid Doppler completed, small -moderate yesenia soft plaque at the right common carotid bifurcation with intimal thickening and minimal plaque buildup on the left without evidence of hemodynamically significant stenosis bilaterally. Brain MRI ordered, not yet completed. Discussed with ICU resident and nurse, patient under critical care management, sedated and on mechanical ventilation status post intubation . Active Medications Calcitriol (Rocaltrol -) 0.25 mcg PO DAILY [facility] Last Admin: 02/17/19 15:59 Dose: Not Given Calcium Acetate (Phoslo -) 667 mg PO TIDCM [facility] Last Admin: 02/17/19 18:08 Dose: 667 mg Chlorhexidine Gluconate (Hibiclens For Decolonization -) 1 applic TP HS [facility] Clotrimazole (Lotrimin 1% Cream -) 1 applic TP BID [facility] Diltiazem HCl (Cardizem -) 30 mg PO TID [facility] Last Admin: 02/18/19 00:19 Dose: 30 mg Heparin Sodium (Porcine) (Heparin -) 5,000 unit IVPUSH PRN PRN PRN Reason: APTT (SECONDS) <40 Heparin Sodium (Porcine) (Heparin -) 1,000 unit IVPUSH PRN PRN PRN Reason: APTT (SECONDS) 40-49 Last Admin: 02/17/19 17:17 Dose: 1,000 unit Heparin Sodium/Dextrose (Heparin Infusion -) 25,000 units in 500 mls @ 20 mls/ hr IVPB TITR [facility]; Protocol Last Titration: 02/18/19 07:00 Dose: 1,200 units/hr, 24 mls/hr Sodium Chloride (1/2 Normal Saline) 1,000 mls @ 150 mls/hr IV ASDIR [facility] Last Admin: 02/17/19 18:08 Dose: 150 mls/hr Propofol (Diprivan -) 1,000,000 mcg in 100 mls @ 3.096 mls/hr IVPB TITR [facility]; Protocol Influenza Virus Vaccine Quadrival (Flulaval Quad [id number]) 60 mcg IM .ONCE ONE Stop: 02/18/19 10:01 Insulin Aspart (Novolog Vial Sliding Scale -) 1 vial SQ ACHS [facility]; Protocol Last Admin: 02/18/19 00:23 Dose: 4 units Lamotrigine (Lamictal -) 100 mg PO DAILY [facility] Mupirocin (Bactroban Ointment (For Decolonization) -) 1 applic NS BID [facility] Stop: 02/22/19 09:59 Pneumococcal 13-Valent Conj Vacc (Prevnar 13 Syringe -) 0.5 ml IM .ONCE ONE Stop: 02/18/19 10:01 PHYSICAL EXAMINATION Vital Signs Period Temp Pulse Resp BP Sys/Verdugo Pulse Ox Last 24 Hr 98.4 F 65-112 18-35 107-141/59-73 94-96 GENERAL: intubated and sedated HEAD: Normal with no signs of trauma. EYES: Pupils equal, round and reactive to light, extraocular movements intact, sclera anicteric, conjunctiva clear. No lid lag. LUNGS: Breath sounds equal, HEART: Regular rate irregularly irregular rhythm, normal S1 and S2 without murmur. ABDOMEN: Soft, not distended, normoactive bowel sounds, skin breakdown on R side of abdomen with sloughing wounds and ecchymosis, very TTP, guarding, no rebound, no masses, reducible umbilical hernia. UPPER EXTREMITIES: 2+ pulses, warm, well-perfused. No cyanosis. No clubbing. No peripheral edema. Cuts on bilateral elbows LOWER EXTREMITIES: 2+ pulses, warm, well-perfused. No calf tenderness. No peripheral edema. NEUROLOGICAL: intuabted, response to voice, not moving extremities to command, response to pain PSYCHIATRIC: Cooperative. poor eye contact. SKIN: +pressure ulcer to the right hip, skin breakdown to the right side of the abdomen, Abrasions to the right side of the face. Warm and dry. CBCD WBC 10.5 K/mm3 (4.0-10.0) H 02/17/19 05:38 RBC 5.00 M/mm3 (4.00-5.60) 02/17/19 05:38 Hgb 16.0 GM/dL (11.7-16.9) 02/17/19 05:38 Hct 48.5 % (35.4-49) 02/17/19 05:38 MCV 96.9 fl (80-96) H 02/17/19 05:38 MCHC 33.0 g/dl (32.0-35.9) 02/17/19 05:38 RDW 14.3 % (11.9-15.9) 02/17/19 05:38 Plt Count 179 K/MM3 (134-434) D 02/17/19 05:38 MPV 9.9 fl (7.5-11.1) 02/17/19 05:38 CMP Sodium 151 mmol/L (136-145) H 02/17/19 21:50 Potassium 5.1 mmol/L (3.5-5.1) 02/17/19 21:50 Chloride 121 mmol/L (98-107) H 02/17/19 21:50 Carbon Dioxide 19 mmol/L (21-32) L 02/17/19 21:50 Anion Gap 11 MMOL/L (8-16) 02/17/19 21:50 BUN 213.3 mg/dL (7-18) H* 02/17/19 21:50 Creatinine 4.9 mg/dL (0.55-1.3) H 02/17/19 21:50 Random Glucose 256 mg/dL (74-106) H 02/17/19 21:50 Calcium 9.2 mg/dL (8.5-10.1) 02/17/19 21:50 Total Bilirubin 1.0 mg/dL (0.2-1) 02/17/19 21:50 AST 32 U/L (15-37) 02/17/19 21:50 ALT 32 U/L (13-61) 02/17/19 21:50 Alkaline Phosphatase 57 U/L (45-117) 02/17/19 21:50 Total Protein 5.6 g/dl (6.4-8.2) L 02/17/19 21:50 Albumin 2.2 g/dl (3.4-5.0) L 02/17/19 21:50 CARDIAC ENZYMES Creatine Kinase 950 U/L (26-308) H 02/17/19 16:15 Troponin I 0.04 ng/ml (0.00-0.05) 02/17/19 16:15 Imaging: EXAM: CT head without contrast FINDINGS: There is cerebral atrophy. Chronic microvascular ischemic changes are noted. No acute intracranial hemorrhage or acute infarction. The visualized aspect of the paranasal sinuses and mastoid air cells are remarkable for moderate right maxillary chronic sinus changes and minimal left ethmoid and left sphenoid chronic sinus changes. No acute fracture. EXAM: CT cervical spine without contrast Findings: Cervical spine demonstrates normal alignment. Moderate degenerative changes noted. No acute cervical spine fracture or dislocation. ASSESSMENT/PLAN: Mr. Burnette is a 68 y/o man with a pmhx of kidney disease, DM, HTN, HLD, obesity , bipolar disorder, depression, and anxiety who is BIBA after being found down in his apt for an unknown period of time. History obtained from chart as pt was confused on exam and was unable to answer questions. Per the patient's brother, the pt had an appointment with a friend I gave admission and when he did not show up the pt's friend called the police to do a wellness check (the pt did not name the friend). Police found the pt down in his apartment and he was brought to the hospital by EMS, unclear how long the pt was down for. Per the patient's brother, the pt is normally fully independent and able to complete all his ADLs unassisted. He lives alone in an apartment in [facility] and per the brother the pt keeps up with all his doctor appointments and takes his medications as prescribed. The pt's brother was unable to state what medicines his brother uses or which pharmacy his brother uses however states that his brother's psychiatrist is Dr. Steve Navarro and that he may know the answers to these questions. The brother reports he last saw the patient about 3 months ago. I was contacted by the emergency department for further evaluation as the patient demonstrated an NIH stroke scale of 14. Time of onset was unknown and additionally patient with generalized confusion and weakness more so than just focal deficits and therefore concern for possible underlying toxic metabolic, infectious, diffuse process. CT head without acute changes but there was multiple metabolic derangements on lab work. White blood cell count was 12 on admission. BUN/creatinine was 252//6.2 on admission. WBC, BUN/Cr. trending down this am. Lastly, blood glucose was 329 on admission, continues to be elevated this am at 256. Arousable but still confused and moves extremities grossly during my evaluation but not participating in confrontation testing. Carotid Doppler completed, small-moderate yesenia soft plaque at the right common carotid bifurcation with intimal thickening and minimal plaque buildup on the left without evidence of hemodynamically significant stenosis bilaterally. Would benefit from MRI brain to rule out CVA this seems more to be a diffuse generalized process and requires further medical optimization. Brain MRI ordered , not yet completed. Discussed with ICU resident and nurse, patient under critical care management, sedated and on mechanical ventilation status post intubation 02/18AM. Diabetic ketoacidosis, monitor glucose, maintain euglycemic range. Monitor electrolytes, follow-up recommendations from nephrology, IV hydration as tolerated, correct derangments. Monitor blood pressure, maintain less than 150/90. Follow up cultures. Wound care. continue ICU level of monitoring. DVT ppx, wean sedation, extubation as best able. monitor atrial fibrillation, cardiology follow-up. Critical care time 45 mins.
[2019-02-18 09:19] LABS: ALBUMIN 2.2 g/dl (3.4-5.0); BILIRUBIN,TOTAL 1.3 mg/dL (0.2-1); CALCIUM 9.2 mg/dL (8.5-10.1); POTASSIUM 5.9 mmol/L (3.5-5.1); TOT PROT 5.6 g/dl (6.4-8.2)
--- NOTE | 2019-02-18 09:46 | PN ---
Physical Exam: SUBJECTIVE: Pt. found to be unresponsive this morning, ABG showed pH 7.12 with CO2 73.6, intubated, repeat ABG showed pH 7.30, CO2 46.1 OBJECTIVE: Vital Signs Period Temp Pulse Resp BP Sys/Verdugo Pulse Ox Last 24 Hr 98.4 F 65-112 18-35 107-141/59-73 94-96 GENERAL: Intubated, sedated EYES: DANIELITO EARS, NOSE, THROAT: Crusting in mouth and lips LUNGS: Decreased breath sounds B/L, no crackles or wheezing HEART: RRR ABDOMEN: Soft, distended, umbilical hernia present LOWER EXTREMITIES: 2+ pulses, warm, no edema NEUROLOGICAL: sedated SKIN: Grade 2 ulcer under right breast, abrasions on right and left elbows, right palm, and necrotic sacral ulcer Laboratory Results - last 24 hr 02/17/19 02/17/19 02/17/19 00:00 00:36 00:36 PTT (Actin FS) Anticoagulation Therapy Puncture Site ABG pH ABG pCO2 at Pt Temp ABG pO2 at Pt Temp ABG HCO3 ABG O2 Sat (Measured) ABG O2 Content ABG Base Excess Santi Test O2 Delivery Device Oxygen Flow Rate Vent Mode Vent Rate Mechanical Rate Pressure Support Vent Sodium Potassium Chloride Carbon Dioxide Anion Gap BUN Creatinine Est GFR (CKD-EPI)AfAm Est GFR (CKD-EPI)NonAf POC Glucometer Random Glucose Hemoglobin A1c % Serum Osmolality Cancelled Calcium Phosphorus Magnesium Total Bilirubin AST ALT Alkaline Phosphatase Creatine Kinase Creatine Kinase Index CK-MB (CK-2) Troponin I Total Protein Albumin Beta-Hydroxybutyrate Cancelled Ur Random Creatinine 59.0 Opiates Screen Negative Methadone Screen Negative Barbiturate Screen Negative Phencyclidine Screen Negative Ur Amphetamines Screen Negative MDMA (Ecstasy) Screen Negative Benzodiazepines Screen Positive A* Cocaine Screen Negative U Marijuana (THC) Screen Positive A* 02/17/19 02/17/19 02/17/19 08:25 08:25 09:50 PTT (Actin FS) Anticoagulation Therapy Puncture Site ABG pH ABG pCO2 at Pt Temp ABG pO2 at Pt Temp ABG HCO3 ABG O2 Sat (Measured) ABG O2 Content ABG Base Excess Santi Test O2 Delivery Device Oxygen Flow Rate Vent Mode Vent Rate Mechanical Rate Pressure Support Vent Sodium 164 H* Potassium 2.9 L* Chloride 138 H Carbon Dioxide 16 L Anion Gap 11 BUN 165.9 H* Creatinine 3.0 H Est GFR (CKD-EPI)AfAm 23.81 Est GFR (CKD-EPI)NonAf 20.54 POC Glucometer 112 Random Glucose 96 Hemoglobin A1c % 6.3 Serum Osmolality Calcium 5.5 L* Phosphorus Magnesium Total Bilirubin AST ALT Alkaline Phosphatase Creatine Kinase Creatine Kinase Index CK-MB (CK-2) Troponin I Total Protein Albumin Beta-Hydroxybutyrate Ur Random Creatinine Opiates Screen Methadone Screen Barbiturate Screen Phencyclidine Screen Ur Amphetamines Screen MDMA (Ecstasy) Screen Benzodiazepines Screen Cocaine Screen U Marijuana (THC) Screen 02/17/19 02/17/19 02/17/19 10:21 10:32 13:30 PTT (Actin FS) Anticoagulation Therapy No Result Required. Puncture Site Left radial ABG pH 7.32 L ABG pCO2 at Pt Temp 36.6 ABG pO2 at Pt Temp 90.7 ABG HCO3 18.2 L ABG O2 Sat (Measured) 96.1 ABG O2 Content 20.9 ABG Base Excess -6.8 L Santi Test Positive O2 Delivery Device Room air Oxygen Flow Rate 21% Vent Mode No Result Required. Vent Rate No Result Required. Mechanical Rate No Result Required. Pressure Support Vent No Result Required. Sodium 153 H Potassium 5.1 Chloride 126 H Carbon Dioxide 18 L Anion Gap 9 BUN 230.4 H* Creatinine 5.1 H Est GFR (CKD-EPI)AfAm 12.54 Est GFR (CKD-EPI)NonAf 10.82 POC Glucometer 158 Random Glucose 126 H Hemoglobin A1c % Serum Osmolality 409 H Calcium 9.2 Phosphorus Magnesium Total Bilirubin AST ALT Alkaline Phosphatase Creatine Kinase Creatine Kinase Index CK-MB (CK-2) Troponin I Total Protein Albumin Beta-Hydroxybutyrate 1.0 Ur Random Creatinine Opiates Screen Methadone Screen Barbiturate Screen Phencyclidine Screen Ur Amphetamines Screen MDMA (Ecstasy) Screen Benzodiazepines Screen Cocaine Screen U Marijuana (THC) Screen 02/17/19 02/17/19 02/17/19 14:30 16:15 16:15 PTT (Actin FS) 39.9 H Anticoagulation Therapy Puncture Site ABG pH ABG pCO2 at Pt Temp ABG pO2 at Pt Temp ABG HCO3 ABG O2 Sat (Measured) ABG O2 Content ABG Base Excess Santi Test O2 Delivery Device Oxygen Flow Rate Vent Mode Vent Rate Mechanical Rate Pressure Support Vent Sodium 152 H 151 H Potassium 5.2 H 5.2 H Chloride 123 H 122 H Carbon Dioxide 17 L 17 L Anion Gap 13 12 BUN 220.5 H* 236.1 H* Creatinine 5.0 H 5.1 H Est GFR (CKD-EPI)AfAm 12.84 12.54 Est GFR (CKD-EPI)NonAf 11.08 10.82 POC Glucometer Random Glucose 257 H 259 H Hemoglobin A1c % Serum Osmolality Calcium 9.2 9.3 Phosphorus 8.0 H Magnesium 3.8 H Total Bilirubin 1.0 AST 35 ALT 34 Alkaline Phosphatase 59 Creatine Kinase 950 H Creatine Kinase Index 0.5 CK-MB (CK-2) 5.0 H Troponin I 0.04 Total Protein 5.8 L Albumin 2.3 L Beta-Hydroxybutyrate Ur Random Creatinine Opiates Screen Methadone Screen Barbiturate Screen Phencyclidine Screen Ur Amphetamines Screen MDMA (Ecstasy) Screen Benzodiazepines Screen Cocaine Screen U Marijuana (THC) Screen 02/17/19 02/17/19 02/18/19 21:50 21:50 00:14 PTT (Actin FS) 46.7 H Anticoagulation Therapy Puncture Site ABG pH ABG pCO2 at Pt Temp ABG pO2 at Pt Temp ABG HCO3 ABG O2 Sat (Measured) ABG O2 Content ABG Base Excess Santi Test O2 Delivery Device Oxygen Flow Rate Vent Mode Vent Rate Mechanical Rate Pressure Support Vent Sodium 151 H Potassium 5.1 Chloride 121 H Carbon Dioxide 19 L Anion Gap 11 BUN 213.3 H* Creatinine 4.9 H Est GFR (CKD-EPI)AfAm 13.16 Est GFR (CKD-EPI)NonAf 11.35 POC Glucometer 227 Random Glucose 256 H Hemoglobin A1c % Serum Osmolality Calcium 9.2 Phosphorus Magnesium Total Bilirubin 1.0 AST 32 ALT 32 Alkaline Phosphatase 57 Creatine Kinase Creatine Kinase Index CK-MB (CK-2) Troponin I Total Protein 5.6 L Albumin 2.2 L Beta-Hydroxybutyrate Ur Random Creatinine Opiates Screen Methadone Screen Barbiturate Screen Phencyclidine Screen Ur Amphetamines Screen MDMA (Ecstasy) Screen Benzodiazepines Screen Cocaine Screen U Marijuana (THC) Screen 02/18/19 02/18/19 06:52 07:05 PTT (Actin FS) Anticoagulation Therapy No Result Required. Puncture Site Right radial ABG pH 7.12 L* ABG pCO2 at Pt Temp 73.6 H* ABG pO2 at Pt Temp 121 H ABG HCO3 22.8 ABG O2 Sat (Measured) 96.8 ABG O2 Content 22.2 ABG Base Excess -9.0 L Santi Test Positive O2 Delivery Device Nasal Oxygen Flow Rate 5l Vent Mode No Result Required. Vent Rate No Result Required. Mechanical Rate No Result Required. Pressure Support Vent No Result Required. Sodium Potassium Chloride Carbon Dioxide Anion Gap BUN Creatinine Est GFR (CKD-EPI)AfAm Est GFR (CKD-EPI)NonAf POC Glucometer 238 Random Glucose Hemoglobin A1c % Serum Osmolality Calcium Phosphorus Magnesium Total Bilirubin AST ALT Alkaline Phosphatase Creatine Kinase Creatine Kinase Index CK-MB (CK-2) Troponin I Total Protein Albumin Beta-Hydroxybutyrate Ur Random Creatinine Opiates Screen Methadone Screen Barbiturate Screen Phencyclidine Screen Ur Amphetamines Screen MDMA (Ecstasy) Screen Benzodiazepines Screen Cocaine Screen U Marijuana (THC) Screen Active Medications Generic Name Dose Route Start Last Admin Trade Name Freq PRN Reason Stop Dose Admin Calcitriol 0.25 mcg 02/17/19 10:00 02/17/19 15:59 Rocaltrol - PO Not Given DAILY [facility] Calcium Acetate 667 mg 02/17/19 08:00 02/17/19 18:08 Phoslo - PO 667 mg TIDCM [facility] Administration Chlorhexidine Gluconate 1 applic 02/17/19 22:00 Hibiclens For Decolonization - TP HS [facility] Clotrimazole 1 applic 02/17/19 10:00 Lotrimin 1% Cream - TP BID [facility] Diltiazem HCl 30 mg 02/17/19 14:00 02/18/19 00:19 Cardizem - PO 30 mg TID [facility] Administration Etomidate 20 mg 02/18/19 08:14 Amidate - IVPUSH 02/18/19 08:15 ONCE ONE Heparin Sodium (Porcine) 5,000 unit 02/17/19 10:12 Heparin - IVPUSH PRN PRN APTT (SECONDS) <40 Heparin Sodium (Porcine) 1,000 unit 02/17/19 10:12 02/17/19 17:17 Heparin - IVPUSH 1,000 unit PRN PRN Administration APTT (SECONDS) 40-49 Heparin Sodium/Dextrose 25,000 units in 500 mls @ 20 mls/hr 02/17/19 10:15 07:00 Heparin Infusion - IVPB 1,200 units/hr TITR [facility] 24 mls/hr Titration Protocol 1,000 UNITS/HR Sodium Chloride 1,000 mls @ 150 mls/hr 02/17/19 16:45 02/17/19 18:08 1/2 Normal Saline IV 150 mls/hr ASDIR [facility] Administration Propofol 1,000,000 mcg in 100 mls @ 3.096 mls/hr 02/18/19 08:30 Diprivan - IVPB TITR [facility] Protocol 5 MCG/KG/MIN Influenza Virus Vaccine Quadrival 60 mcg 02/18/19 10:00 Flulaval Quad [id number] IM 02/18/19 10:01 .ONCE ONE Insulin Aspart 1 vial 02/17/19 22:00 02/18/19 00:23 Novolog Vial Sliding Scale - SQ 4 units ACHS [facility] Administration Protocol Lamotrigine 100 mg 02/18/19 10:00 Lamictal - PO DAILY [facility] Mupirocin 1 applic 02/17/19 10:00 Bactroban Ointment (For Decolonization) - NS 02/22/19 09:59 BID [facility] Pneumococcal 13-Valent Conj Vacc 0.5 ml 02/18/19 10:00 Prevnar 13 Syringe - IM 02/18/19 10:01 .ONCE ONE Rocuronium [place] 50 mg 02/18/19 08:14 Zemuron - IVPUSH 02/18/19 08:15 ONCE ONE Sodium Bicarbonate 50 meq 02/18/19 08:17 Sodium Bicarbonate 8.4% - IVPUSH 02/18/19 08:18 ONCE ONE ASSESSMENT/PLAN: 68 year old male with past medical history of kidney disease, DM, HTN, HLD, obesity, bipolar disorder, depression, and anxiety. He was brought in by EMS after being found on the ground in his apartment for an unknown period of time. According to the brother, the patient is normally fully independent and able to complete tasks. The brother reports he last saw the patient about 3 months ago. #Neuro - Pt. found to be unresponsive this morning, ABG showed pH 7.12 with CO2 73.6, intubated, repeat ABG showed pH 7.30, CO2 46.1 - Sedated with Propofol - Continue home med Lamotrigine 100mg PO - Head CT: No ischemia, fractures - NIH 14 on admission - Carotid Doppler: Plaque in RCC bifurcation - Neuro recs: MRI head #GI - 800ml coffee ground emesis noticed upon suctioning - FOBT ordered - CTAP: No obstruction, rectal impaction with hiatal hernia noticed #CVS - AFib with RVR - Vascular consult for ulcers: no need for surgical management at this time, rotate weight bearing areas - Echo: EF 60-65, mild LVH, normal LVSF, small pericardial effusion (<1cm) - Cardio recs: CHADVASC score 2-3, start heparin drip - On Heparin drip @1100 units - Cardizem 30mg PO TID, was previously on Cardizem drip #Nephro - BUN/Cr: 205/5 - L Femoral Trialysis catheter placed, pt undergoing HD - UTox: Benzo and Marijuana positive - Chou in place, monitor I/O #Endo - Came in with Glucose 329, Beta Hydroxybutyrate 5.5 -> 1.0, started on insulin drip - Glucose 288 and Anion gap 6 this morning - HbA1c 6.3 #ID - WBC 11.7 #FEN - 0.45 N/S @ 75 - Found to have K of 5.9, given Insulin 10U and D5 - NPO except for meds #DVT PE - On Heparin drip #Dispo - Will continue to monitor - Discussed with sister Samia, consent for HD taken from brother in person Visit type - Emergency Visit Emergency Visit: Yes ED Registration Date: 02/16/19 Care time: The patient presented to the Emergency Department on the above date and was hospitalized for further evaluation of their emergent condition. - New Patient This patient is new to me today: No - Critical Care Critical Care patient: Yes Total Critical Care Time (in minutes): 37 Critical Care Statement: The care of this patient involved high complexity decision making to prevent further life threatening deterioration of the patient 's condition and/or to evaluate & treat vital organ system(s) failure or risk of failure. ATTENDING PHYSICIAN STATEMENT I saw and evaluated the patient. I reviewed the resident's note and discussed the case with the resident. I agree with the resident's findings and plan as documented. SUBJECTIVE: OBJECTIVE: ASSESSMENT AND PLAN:
[2019-02-18] MEDS ORDERED: PNEUMOC 13-VAL CONJ-DIP CRM/PF 0.5 ML DISP.SYRIN IM ONE (10:00)
[2019-02-18] MEDS ORDERED: FLU VACCINE QUAD 60 MCG/0.5 ML (MDV 19-20) IM ONE (10:00)
[2019-02-18] MEDS: PROPOFOL 1,000,000 MCG/100 ML VIAL IVPB SCH (10:15)
[2019-02-18 10:25] LABS: ARTERIAL BLD GAS O2 SATURATION 99.1 % (95-98); ARTERIAL BLOOD GAS BASE EXCESS -4.7 meq/l (-2-2); ARTERIAL BLOOD GAS PCO2 46.1 mmHg (35-45); ARTERIAL BLOOD GAS PO2 208 mmHg (80-100)
[2019-02-18 10:27] LABS: ALLENS TEST POSITIVE
--- NOTE | 2019-02-18 10:29 | PN ---
Progress Note, Physician Chief Complaint: Events noted Currently in ICU intubated, poorly responsive History of Present Illness: Patient was seen in ICU. Mechanical ventilation. Chart was reviewed Episode of AF now on Heparin drip - Current Medication List Current Medications: Active Medications Calcitriol (Rocaltrol -) 0.25 mcg PO DAILY [facility] Last Admin: 02/17/19 15:59 Dose: Not Given Calcium Acetate (Phoslo -) 667 mg PO TIDCM [facility] Last Admin: 02/17/19 18:08 Dose: 667 mg Chlorhexidine Gluconate (Hibiclens For Decolonization -) 1 applic TP HS [facility] Clotrimazole (Lotrimin 1% Cream -) 1 applic TP BID [facility] Diltiazem HCl (Cardizem -) 30 mg PO TID [facility] Last Admin: 02/18/19 00:19 Dose: 30 mg Heparin Sodium (Porcine) (Heparin -) 5,000 unit IVPUSH PRN PRN PRN Reason: APTT (SECONDS) <40 Heparin Sodium (Porcine) (Heparin -) 1,000 unit IVPUSH PRN PRN PRN Reason: APTT (SECONDS) 40-49 Last Admin: 02/17/19 17:17 Dose: 1,000 unit Heparin Sodium/Dextrose (Heparin Infusion -) 25,000 units in 500 mls @ 20 mls/ hr IVPB TITR [facility]; Protocol Last Titration: 02/18/19 07:00 Dose: 1,200 units/hr, 24 mls/hr Sodium Chloride (1/2 Normal Saline) 1,000 mls @ 150 mls/hr IV ASDIR [facility] Last Admin: 02/17/19 18:08 Dose: 150 mls/hr Propofol (Diprivan -) 1,000,000 mcg in 100 mls @ 3.096 mls/hr IVPB TITR [facility]; Protocol Insulin Aspart (Novolog Vial Sliding Scale -) 1 vial SQ ACHS [facility]; Protocol Last Admin: 02/18/19 00:23 Dose: 4 units Lamotrigine (Lamictal -) 100 mg PO DAILY [facility] Mupirocin (Bactroban Ointment (For Decolonization) -) 1 applic NS BID [facility] Stop: 02/22/19 09:59 - Objective Vital Signs: Vital Signs Temperature 98.4 F 02/18/19 01:30 Pulse Rate 76 02/18/19 09:00 Respiratory Rate 15 02/18/19 09:00 Blood Pressure 129/74 02/18/19 09:00 O2 Sat by Pulse Oximetry (%) 100 02/18/19 09:00 Cardiovascular: Yes: Regular Rate and Rhythm, S1, S2 Respiratory: Yes: Diminished, Mechanically Ventilated Gastrointestinal: Yes: Normal Bowel Sounds, Soft. No: Tenderness Edema: No Labs: CBC, BMP 02/18/19 08:20 02/18/19 08:20 INR, PTT INR 1.54 (0.83-1.09) H 02/17/19 05:13 - ....Imaging Chest X-ray: Report Reviewed Problem List - Problems (1) HTN (hypertension) Code(s): I10 - ESSENTIAL (PRIMARY) HYPERTENSION (2) Hypercholesterolemia Code(s): E78.00 - PURE HYPERCHOLESTEROLEMIA, UNSPECIFIED (3) Bipolar disorder Code(s): F31.9 - BIPOLAR DISORDER, UNSPECIFIED (4) Leukocytosis Code(s): D72.829 - ELEVATED WHITE BLOOD CELL COUNT, UNSPECIFIED (5) Renal failure Code(s): N19 - UNSPECIFIED KIDNEY FAILURE (6) Rhabdomyolysis Code(s): M62.82 - RHABDOMYOLYSIS Assessment/Plan 1. ? Syncope 2. Respiratory failure on mechanical ventilation 3. HTN 4. Hypercholesterolemia 5. SMITA with underlying CKD due to dehydration ?rhabdomyolosis 6. Hypernatremia due to above 7. Bipolar disorder, depression and anxiety 8. PAF currently in sinus rhythm [id number] score of either 2-3 9. Carotid artery disease PLAN: 1. Heparin protocol for now, but may be held until head CT is obtained to rule out bleed and then restart drip. senior care anticoagulation can be decided as per patients progress. 2. Hydration and monitor renal function and electrolytes. Correct NA 4. Currently written for Cardizem but not given 5. Echocardiography was reviewed Guarded Further plans are to follow Andi Vázquez MD
--- NOTE | 2019-02-18 10:31 | CONSULT ---
- Consultation REQUESTING PROVIDER: WOUND CARE - Vance Abreu DO CONSULT REQUEST: We have been asked to surgically evaluate this patient for multiple wounds PCP: Feliz Marie MD History Provided By: Medical Record Limitations to Obtaining History: Clinical Condition --> intubated HPI: Called to get 68 yo male with PMHx as noted below. BIBA after being found face down on the floor of his apartment (unknown downtime). History portion of this consult obtained from current/past medical charting. Currently intubated. Multiple medical problems. Has multiple wounds over various parts of his body. Imaging in ED --> Head CT: No ischemia or fractures. Carotid Doppler: Plaque in RCC bifurcation PMHx: Obesity HTN HLD Bipolar Depression DM CKD Hypercholesterolemia Anxiety PSHx: Appendectomy Home Meds: Allopurinol [Zyloprim -] 200 mg DAILY 02/17/19 Amlodipine Besylate 10 mg PO DAILY 02/17/19 Diazepam [Valium] 10 mg PO TID 02/17/19 Insulin Aspart [Novolog] 2 units TID 02/17/19 Insulin Glargine,Hum.rec.anlog [Toujeo Solostar] 95 unit HS 02/17/19 Lamotrigine 100 mg DAILY 02/17/19 Losartan/Hydrochlorothiazide [Losartan-Hctz 100-12.5 mg Tab] 1 tablet DAILY Quetiapine Fumarate [Seroquel -] 200 mg PO HS 02/17/19 Allergies No allergy information listed. REVIEW OF SYSTEMS: Unable to obtain due to clinical condition. PE: GEN: Alert. NAD. Intubated. Eyes open upon command EYES: DANIELITO, EOMI ENT: Poor oral hygiene, intubated. NGT on LWCS (appears & smells feculent) LUNGS: Decreased breath sounds B/L HEART: RRR ABD: Obese habitus. Softly distended, umbilical hernia, RUQ skin: Grade 2 ulcer under right breast 9 cm x 5 cm and just lateral to that Grade 2 ulcer 6 cm x 3 cm. LE: 2+ pulses, warm, Left knee (medial aspect) unstageable pressure ulcer 9 cm x 4 cm --> no purulence/bogginess/induration/erythema. Not malodorous. Right hip with 7 cm x 4 cm unstageable ulcer --> no purulence/bogginess/ induration/erythema. Skin over heels intact bilaterally. Palpable DP & PT bilaterally. : Grade 1 to meatus and scrotum. Chou to gravity SKIN: Left Gluteal fold with Grade 2 ulcer 4 cm x 3 cm. Right gluteal fold with Grade 1 ulcer 4 cm x 2 cm Last Vital Signs Temp Pulse Resp BP Pulse Ox 98.4 F 76 15 129/74 100 02/18/19 01:30 02/18/19 09:00 02/18/19 09:00 02/18/19 09:00 02/18/19 09:00 Blood Type Blood Type A NEGATIVE 02/16/19 19:30 CBC, BMP 02/18/19 08:20 02/18/19 08:20 INR, PTT INR 1.54 (0.83-1.09) H 02/17/19 05:13 Microbiology 02/17/19 00 :30 Urine - Final NO GROWTH OBTAINED Problem List - Problems (1) Unstageable pressure injury of skin and tissue Assessment/Plan: 68 yo male with multiple medical problems. Leukocytosis. SMITA. Gentle IVF hydration Monitor BUN/Cr (improving slowly, no need for HD at this time per Renal) Serial CBC, BMP Tight glycemic control ET management as per Pulmonary & Respiratory Team GI PPX DVT PPX Monitor & record I/Os q shift Sacral Ulcer/DTI Plan Reposition every two hours while in bed Air mattress recommended Use drawsheets and Trendelenburg when repositioning to reduce friction and shear Manageincontinence via timely cleansing, use of appropriate incontinence disposables and use of barrier ointment to intact skin Ensure adequate nutrition, supplementation per primary team Off-loading to all bony areas (heels, ankles, hips and tailbone) with Allevyn/ Optifoam No surgical intervention at this time. Will cont to monitor and once patient stable and medically optimized may benefit from debridement Above discussed with Dr. Abreu and agrees. Code(s): L89.95 - PRESSURE ULCER OF UNSPECIFIED SITE, UNSTAGEABLE (2) HTN (hypertension) Code(s): I10 - ESSENTIAL (PRIMARY) HYPERTENSION (3) Leukocytosis Code(s): D72.829 - ELEVATED WHITE BLOOD CELL COUNT, UNSPECIFIED (4) Renal failure Code(s): N19 - UNSPECIFIED KIDNEY FAILURE Visit type - Case Type Case Type: ED Admission - Emergency Emergency Visit: Yes ED Registration Date: 02/16/19 Care time: The patient presented to the Emergency Department on the above date and was hospitalized for further evaluation of their emergent condition. - New patient This patient is new to me today: Yes Date on this admission: 02/18/19
[2019-02-18] MEDS ORDERED: PT OWN MED DRAWER 7, Y5N ONE (10:39)
[2019-02-18] MEDS: CALCIUM ACETATE 667 MG CAPSULE (FP) PO SCH ×3 (10:41→17:32)
[2019-02-18] MEDS: MUPIROCIN 2% TOPICAL OINTMENT FOR DECOLONIZATION NS SCH ×3 (10:41→21:58)
[2019-02-18] MEDS: HEPARIN NA (PORCINE) 5,000 UNITS/ML 1ML VIAL IVPUSH PRN (10:42)
[2019-02-18] MEDS: CALCITRIOL 0.25 MCG CAPSULE (FP) PO SCH (10:42)
[2019-02-18] MEDS: lamoTRIgine 100 MG TABLET (FP) PO SCH (10:42)
[2019-02-18] MEDS: HEPARIN INFUSION - 25,000 UNITS/500 ML INFUS.BAG IVPB SCH (10:45)
--- NOTE | 2019-02-18 11:54 | PN ---
Teaching Attending Note Name of Resident: Hollis Floyd ATTENDING PHYSICIAN STATEMENT I saw and evaluated the patient. I reviewed the resident's note and discussed the case with the resident. I agree with the resident's findings and plan as documented. SUBJECTIVE: Patient seen and examined in the ICU. Decompensated overnight and required intubation. AC Mode of vent. No pressors. Intake & Output 02/15/19 02/16/19 02/17/19 02/18/19 23:59 23:59 23:59 23:59 Intake Total 1450 522 Output Total 400 1680 Balance -400 -230 522 Weight 300 lb 227 lb 8.273 oz Last Vital Signs Temp Pulse Resp BP Pulse Ox 97.9 F 76 16 127/75 100 02/18/19 10:00 02/18/19 10:00 02/18/19 10:00 02/18/19 10:00 02/18/19 09:00 Active Medications Calcitriol (Rocaltrol -) 0.25 mcg PO DAILY [facility] Last Admin: 02/18/19 10:42 Dose: Not Given Calcium Acetate (Phoslo -) 667 mg PO TIDCM [facility] Last Admin: 02/18/19 10:41 Dose: Not Given Chlorhexidine Gluconate (Hibiclens For Decolonization -) 1 applic TP HS [facility] Clotrimazole (Lotrimin 1% Cream -) 1 applic TP BID [facility] Diltiazem HCl (Cardizem -) 30 mg PO TID [facility] Last Admin: 02/18/19 00:19 Dose: 30 mg Heparin Sodium (Porcine) (Heparin -) 5,000 unit IVPUSH PRN PRN PRN Reason: APTT (SECONDS) <40 Heparin Sodium (Porcine) (Heparin -) 1,000 unit IVPUSH PRN PRN PRN Reason: APTT (SECONDS) 40-49 Last Admin: 02/18/19 10:42 Dose: 1,000 unit Heparin Sodium/Dextrose (Heparin Infusion -) 25,000 units in 500 mls @ 20 mls/ hr IVPB TITR [facility]; Protocol Last Admin: 02/18/19 10:45 Dose: 1,300 units/hr, 26 mls/hr Sodium Chloride (1/2 Normal Saline) 1,000 mls @ 150 mls/hr IV ASDIR [facility] Last Admin: 02/17/19 18:08 Dose: 150 mls/hr Propofol (Diprivan -) 1,000,000 mcg in 100 mls @ 3.096 mls/hr IVPB TITR [facility]; Protocol Last Admin: 02/18/19 10:15 Dose: 5 mcg/kg/min, 3.096 mls/hr Insulin Aspart (Novolog Vial Sliding Scale -) 1 vial SQ ACHS [facility]; Protocol Last Admin: 02/18/19 00:23 Dose: 4 units Lamotrigine (Lamictal -) 100 mg PO DAILY [facility] Last Admin: 02/18/19 10:42 Dose: Not Given Mupirocin (Bactroban Ointment (For Decolonization) -) 1 applic NS BID [facility] Stop: 02/22/19 09:59 Last Admin: 02/18/19 10:47 Dose: 1 applic GENERAL: Intubated and sedated EYES: DANIELITO EARS, NOSE, THROAT: Dry MM LUNGS: Vented, decreased breath sounds at the bases, no wheezing HEART: RRR ABDOMEN: Soft, distended, (+) BS, umbilical hernia present LOWER EXTREMITIES: 2+ pulses, warm, no edema NEUROLOGICAL: Sedated PSYCHIATRIC: Sedated SKIN: Grade 2 ulcer under right chest, multiple abrasions, sacral ulcer ASSESSMENT/PLAN: Acute Respiratory Failure Acute on CKD DM HTN HLD Obesity Bipolar disorder Depression Anxiety Rapid Afib Hyperglycemia Toxic Metabolic Encephalopathy R/O Encephalopathy due to Uremia R/O CVA IVF AC Mode fo vent HD Per Renal Close monitoring of electrolytes Neuro evaluation noted: recommended MRI when stable Rate control with CCB On IV Heparin drip O2 as needed to maintain saturation Strict I & O Glycemic control ICU monitoring Dr Noaln Critical care time spent in reviewing chart, evaluating patient and formulating plan - 36 minutes.
[2019-02-18] MEDS: CLOTRIMAZOLE 1% CREAM 15 GM TUBE TP SCH ×2 (12:31→21:58)
[2019-02-18] MEDS ORDERED: INSULIN REGULAR HUMAN 100 UNITS/ML *VIAL IVPUSH ONE (13:01)
[2019-02-18] MEDS ORDERED: DEXTROSE 50%-WATER - 25 GM/50 ML VIAL IVPUSH ONE (13:02)
[2019-02-18 13:08] LABS: MACROCYTOSIS 2+; PLATELET ESTIMATE NORMAL
[2019-02-18] MEDS ORDERED: SODIUM CHLORIDE 250 ML IV PRN (13:39)
[2019-02-18 13:49] LABS: COCAINE, UR NEGATIVE ng/ml (CUTOFF=300); METHADONE, UR NEGATIVE ng/ml (CUTOFF=300); OPIATES, URI NEGATIVE ng/ml (CUTOFF=300); PHENCYCLIDINE,URINE NEGATIVE ng/ml (CUTOFF=25); URINE AMPHETAMINES NEGATIVE ng/ml (CUTOFF=500); URINE BARBITURATES NEGATIVE ng/ml (CUTOFF=200)
[2019-02-18 13:57] LABS: URINE BENZODIAZEPINES POSITIVE ng/ml (CUTOFF=200)
[2019-02-18] MEDS: SODIUM CHLORIDE 0.45% 1,000 ML IV SCH ×2 (14:05→23:00)
[2019-02-18] MEDS ORDERED: DEXTROSE 50%-WATER 25 GM/50 ML DISP.SYRIN ONE (14:08)
[2019-02-18] MEDS: ALBUTEROL SO4 0.083% IH SOL 2.5 MG/3 ML VIAL.NEB. NEB SCH ×4 (14:10→14:55)
--- NOTE | 2019-02-18 14:39 | EKG ---
Test Reason : Blood Pressure : / mmHG Vent. Rate : 101 BPM Atrial Rate : 101 BPM P-R Int : 174 ms QRS Dur : 082 ms QT Int : 326 ms P-R-T Axes : 036 038 198 degrees QTc Int : 422 ms SINUS TACHYCARDIA WITH PREMATURE ATRIAL COMPLEXES POSSIBLE LEFT ATRIAL ENLARGEMENT SEPTAL INFARCT (CITED ON OR BEFORE 16-FEB-2019) ABNORMAL ECG WHEN COMPARED WITH ECG OF 17-FEB-2019 09:32, PREMATURE ATRIAL COMPLEXES ARE NOW PRESENT T WAVE INVERSION NOW EVIDENT IN INFERIOR LEADS Confirmed by Yeyo Salinas ([id number]) on 02/18/2019 2:38:49 PM Referred By: JOSE Confirmed By:Yeyo Salinas
--- NOTE | 2019-02-18 14:57 | PN ---
Progress Note, Physician History of Present Illness: Pt seen and examined at bedside. He was intubated for hypercapnic resp failure. He is in the ICU. He is making urine. - Current Medication List Current Medications: Active Medications Calcitriol (Rocaltrol -) 0.25 mcg PO DAILY [facility] Last Admin: 02/18/19 10:42 Dose: Not Given Calcium Acetate (Phoslo -) 667 mg PO TIDCM [facility] Last Admin: 02/18/19 12:17 Dose: Not Given Chlorhexidine Gluconate (Hibiclens For Decolonization -) 1 applic TP HS [facility] Clotrimazole (Lotrimin 1% Cream -) 1 applic TP BID [facility] Last Admin: 02/18/19 12:31 Dose: 1 applic Diltiazem HCl (Cardizem -) 30 mg PO TID [facility] Last Admin: 02/18/19 14:03 Dose: Not Given Heparin Sodium (Porcine) (Heparin -) 5,000 unit IVPUSH PRN PRN PRN Reason: APTT (SECONDS) <40 Heparin Sodium (Porcine) (Heparin -) 1,000 unit IVPUSH PRN PRN PRN Reason: APTT (SECONDS) 40-49 Last Admin: 02/18/19 10:42 Dose: 1,000 unit Heparin Sodium/Dextrose (Heparin Infusion -) 25,000 units in 500 mls @ 20 mls/ hr IVPB TITR [facility]; Protocol Last Admin: 02/18/19 10:45 Dose: 1,300 units/hr, 26 mls/hr Propofol (Diprivan -) 1,000,000 mcg in 100 mls @ 3.096 mls/hr IVPB TITR [facility]; Protocol Last Admin: 02/18/19 10:15 Dose: 5 mcg/kg/min, 3.096 mls/hr Sodium Chloride (Normal Saline -) 250 mls @ 3,000 mls/hr IV PRN PRN PRN Reason: Hypotension during Dialysis Stop: 02/19/19 13:39 Sodium Chloride (1/2 Normal Saline) 1,000 mls @ 75 mls/hr IV ASDIR [facility] Last Admin: 02/18/19 14:05 Dose: 75 mls/hr Insulin Aspart (Novolog Vial Sliding Scale -) 1 vial SQ ACHS [facility]; Protocol Last Admin: 02/18/19 12:26 Dose: 6 units Lamotrigine (Lamictal -) 100 mg PO DAILY [facility] Last Admin: 02/18/19 10:42 Dose: Not Given Mupirocin (Bactroban Ointment (For Decolonization) -) 1 applic NS BID [facility] Stop: 02/22/19 09:59 Last Admin: 02/18/19 10:47 Dose: 1 applic - Objective Vital Signs: Vital Signs Temperature 97.9 F 02/18/19 10:00 Pulse Rate 66 02/18/19 14:20 Respiratory Rate 14 02/18/19 14:20 Blood Pressure 108/61 02/18/19 14:20 O2 Sat by Pulse Oximetry (%) 96 02/18/19 12:40 Constitutional: Yes: Calm Eyes: Yes: Conjunctiva Clear HENT: Yes: Atraumatic Neck: Yes: Supple Cardiovascular: Yes: S1, S2 Respiratory: Yes: CTA Bilaterally Gastrointestinal: Yes: Normal Bowel Sounds, Soft Genitourinary: Yes: WNL Musculoskeletal: Yes: WNL Edema: Yes Edema: LLE: Trace, RLE: Trace Integumentary: Yes: WNL Neurological: Yes: Lethargy Labs: CBC, BMP 02/18/19 08:20 02/18/19 08:20 INR, PTT INR 1.54 (0.83-1.09) H 02/17/19 05:13 - ....Imaging Chest X-ray: Report Reviewed Assessment/Plan Current Medications Generic Name Dose Route Start Last Admin Trade Name Freq PRN Reason Stop Dose Admin Calcitriol 0.25 mcg 02/17/19 10:00 02/18/19 10:42 Rocaltrol - PO Not Given DAILY [facility] Calcium Acetate 667 mg 02/17/19 08:00 02/18/19 12:17 Phoslo - PO Not Given TIDCM [facility] Chlorhexidine Gluconate 1 applic 02/17/19 22:00 Hibiclens For Decolonization - TP HS [facility] Clotrimazole 1 applic 02/17/19 10:00 02/18/19 12:31 Lotrimin 1% Cream - TP 1 applic BID [facility] Administration Diltiazem HCl 30 mg 02/17/19 14:00 02/18/19 14:03 Cardizem - PO Not Given TID [facility] Heparin Sodium (Porcine) 5,000 unit 02/17/19 10:12 Heparin - IVPUSH PRN PRN APTT (SECONDS) <40 Heparin Sodium (Porcine) 1,000 unit 02/17/19 10:12 02/18/19 10:42 Heparin - IVPUSH 1,000 unit PRN PRN Administration APTT (SECONDS) 40-49 Heparin Sodium/Dextrose 25,000 units in 500 mls @ 20 mls/hr 02/17/19 10:15 10:45 Heparin Infusion - IVPB 1,300 units/hr TITR [facility] 26 mls/hr Administration Protocol 1,000 UNITS/HR Propofol 1,000,000 mcg in 100 mls @ 3.096 mls/hr 02/18/19 08:30 02/18/19 10: 15 Diprivan - IVPB 5 mcg/kg/min TITR [facility] 3.096 mls/hr Administration Protocol 5 MCG/KG/MIN Sodium Chloride 250 mls @ 3,000 mls/hr 02/18/19 13:39 Normal Saline - IV 02/19/19 13:39 PRN PRN Hypotension during Dialysis Sodium Chloride 1,000 mls @ 75 mls/hr 02/18/19 13:40 02/18/19 14:05 1/2 Normal Saline IV 75 mls/hr ASDIR [facility] Administration Insulin Aspart 1 vial 02/17/19 22:00 02/18/19 12:26 Novolog Vial Sliding Scale - SQ 6 units ACHS [facility] Administration Protocol Lamotrigine 100 mg 02/18/19 10:00 02/18/19 10:42 Lamictal - PO Not Given DAILY [facility] Mupirocin 1 applic 02/17/19 10:00 02/18/19 10:47 Bactroban Ointment (For Decolonization) - NS 02/22/19 09:59 1 applic BID [facility] Administration Impression 1. SMITA 2. rhabdo 3. dka 4. altered mental status 5. hyperkalemia 6. resp failure Plan - will dialyze today - spoke to family, brother and sister. Consent for HD obtained - monitor lytes - monitor urine output - vent support
--- NOTE | 2019-02-18 15:34 | PN ---
Physical Exam: SUBJECTIVE: Patient seen and examined in the morning. Patient was intubated in the morning. OBJECTIVE: Vital Signs Period Temp Pulse Resp BP Sys/Verdugo Pulse Ox Last 24 Hr 97.9 F-98.4 F 66-112 14-35 101-141/56-75 94-100 GENERAL: The patient is not alert, unarousable. EYES: PERRL, conjunctiva clear. LUNGS: Ventilator sounds predominate. Equal on both sides. HEART: Regular rate and rhythm, S1, S2. ABDOMEN: Soft, normoactive bowel sounds. EXTREMITIES: 2+ pulses, warm, well-perfused, no edema. Laboratory Results - last 24 hr 02/17/19 02/17/19 02/17/19 14:30 16:15 16:15 WBC RBC Hgb Hct MCV MCH MCHC RDW Plt Count MPV Absolute Neuts (auto) Neutrophils % Neutrophils % (Manual) Band Neutrophils % Lymphocytes % Lymphocytes % (Manual) Monocytes % Monocytes % (Manual) Eosinophils % Eosinophils % (Manual) Basophils % Basophils % (Manual) Myelocytes % (Man) Promyelocytes % (Man) Blast Cells % (Manual) Nucleated RBC % Metamyelocytes Platelet Estimate Macrocytosis PTT (Actin FS) 39.9 H Anticoagulation Therapy Puncture Site ABG pH ABG pCO2 at Pt Temp ABG pO2 at Pt Temp ABG HCO3 ABG O2 Sat (Measured) ABG O2 Content ABG Base Excess Santi Test O2 Delivery Device Oxygen Flow Rate Vent Mode Vent Rate Mechanical Rate Pressure Support Vent Sodium 152 H 151 H Potassium 5.2 H 5.2 H Chloride 123 H 122 H Carbon Dioxide 17 L 17 L Anion Gap 13 12 BUN 220.5 H* 236.1 H* Creatinine 5.0 H 5.1 H Est GFR (CKD-EPI)AfAm 12.84 12.54 Est GFR (CKD-EPI)NonAf 11.08 10.82 POC Glucometer Random Glucose 257 H 259 H Calcium 9.2 9.3 Phosphorus 8.0 H Magnesium 3.8 H Total Bilirubin 1.0 AST 35 ALT 34 Alkaline Phosphatase 59 Creatine Kinase 950 H Creatine Kinase Index 0.5 CK-MB (CK-2) 5.0 H Troponin I 0.04 Total Protein 5.8 L Albumin 2.3 L Opiates Screen Methadone Screen Barbiturate Screen Phencyclidine Screen Ur Amphetamines Screen MDMA (Ecstasy) Screen Benzodiazepines Screen Cocaine Screen U Marijuana (THC) Screen 02/17/19 02/17/19 02/18/19 21:50 21:50 00:14 WBC RBC Hgb Hct MCV MCH MCHC RDW Plt Count MPV Absolute Neuts (auto) Neutrophils % Neutrophils % (Manual) Band Neutrophils % Lymphocytes % Lymphocytes % (Manual) Monocytes % Monocytes % (Manual) Eosinophils % Eosinophils % (Manual) Basophils % Basophils % (Manual) Myelocytes % (Man) Promyelocytes % (Man) Blast Cells % (Manual) Nucleated RBC % Metamyelocytes Platelet Estimate Macrocytosis PTT (Actin FS) 46.7 H Anticoagulation Therapy Puncture Site ABG pH ABG pCO2 at Pt Temp ABG pO2 at Pt Temp ABG HCO3 ABG O2 Sat (Measured) ABG O2 Content ABG Base Excess Santi Test O2 Delivery Device Oxygen Flow Rate Vent Mode Vent Rate Mechanical Rate Pressure Support Vent Sodium 151 H Potassium 5.1 Chloride 121 H Carbon Dioxide 19 L Anion Gap 11 BUN 213.3 H* Creatinine 4.9 H Est GFR (CKD-EPI)AfAm 13.16 Est GFR (CKD-EPI)NonAf 11.35 POC Glucometer 227 Random Glucose 256 H Calcium 9.2 Phosphorus Magnesium Total Bilirubin 1.0 AST 32 ALT 32 Alkaline Phosphatase 57 Creatine Kinase Creatine Kinase Index CK-MB (CK-2) Troponin I Total Protein 5.6 L Albumin 2.2 L Opiates Screen Methadone Screen Barbiturate Screen Phencyclidine Screen Ur Amphetamines Screen MDMA (Ecstasy) Screen Benzodiazepines Screen Cocaine Screen U Marijuana (THC) Screen 02/18/19 02/18/19 02/18/19 06:52 07:05 08:20 WBC RBC Hgb Hct MCV MCH MCHC RDW Plt Count MPV Absolute Neuts (auto) Neutrophils % Neutrophils % (Manual) Band Neutrophils % Lymphocytes % Lymphocytes % (Manual) Monocytes % Monocytes % (Manual) Eosinophils % Eosinophils % (Manual) Basophils % Basophils % (Manual) Myelocytes % (Man) Promyelocytes % (Man) Blast Cells % (Manual) Nucleated RBC % Metamyelocytes Platelet Estimate Macrocytosis PTT (Actin FS) 43.9 H Anticoagulation Therapy No Result Required. Puncture Site Right radial ABG pH 7.12 L* ABG pCO2 at Pt Temp 73.6 H* ABG pO2 at Pt Temp 121 H ABG HCO3 22.8 ABG O2 Sat (Measured) 96.8 ABG O2 Content 22.2 ABG Base Excess -9.0 L Santi Test Positive O2 Delivery Device Nasal Oxygen Flow Rate 5l Vent Mode No Result Required. Vent Rate No Result Required. Mechanical Rate No Result Required. Pressure Support Vent No Result Required. Sodium Potassium Chloride Carbon Dioxide Anion Gap BUN Creatinine Est GFR (CKD-EPI)AfAm Est GFR (CKD-EPI)NonAf POC Glucometer 238 Random Glucose Calcium Phosphorus Magnesium Total Bilirubin AST ALT Alkaline Phosphatase Creatine Kinase Creatine Kinase Index CK-MB (CK-2) Troponin I Total Protein Albumin Opiates Screen Methadone Screen Barbiturate Screen Phencyclidine Screen Ur Amphetamines Screen MDMA (Ecstasy) Screen Benzodiazepines Screen Cocaine Screen U Marijuana (THC) Screen 02/18/19 02/18/19 02/18/19 08:20 08:20 09:45 WBC 11.7 H RBC 4.60 Hgb 14.5 Hct 45.1 MCV 98.1 H MCH 31.6 MCHC 32.2 RDW 14.1 Plt Count 203 MPV 9.9 Absolute Neuts (auto) 10.8 H Neutrophils % 92.1 H Neutrophils % (Manual) 92.0 H Band Neutrophils % 0.0 Lymphocytes % 1.5 L D Lymphocytes % (Manual) 3.0 L D Monocytes % 6.1 Monocytes % (Manual) 5 D Eosinophils % 0.2 Eosinophils % (Manual) 0.0 Basophils % 0.1 Basophils % (Manual) 0.0 Myelocytes % (Man) 0 Promyelocytes % (Man) 0 Blast Cells % (Manual) 0 Nucleated RBC % 0 Metamyelocytes 0 Platelet Estimate Normal Macrocytosis 2+ PTT (Actin FS) Anticoagulation Therapy No Result Required. Puncture Site Right radial ABG pH 7.30 L ABG pCO2 at Pt Temp 46.1 H ABG pO2 at Pt Temp 208 H ABG HCO3 21.9 L ABG O2 Sat (Measured) 99.1 H ABG O2 Content 28.2 ABG Base Excess -4.7 L Santi Test Positive O2 Delivery Device No Result Required. Oxygen Flow Rate 100 Vent Mode No Result Required. Vent Rate 5 Mechanical Rate No Result Required. Pressure Support Vent No Result Required. Sodium 152 H Potassium 5.9 H Chloride 119 H Carbon Dioxide 27 Anion Gap 6 L BUN 205.0 H* Creatinine 5.0 H Est GFR (CKD-EPI)AfAm 12.84 Est GFR (CKD-EPI)NonAf 11.08 POC Glucometer Random Glucose 288 H Calcium 9.2 Phosphorus Magnesium Total Bilirubin 1.3 H AST 78 H ALT 44 Alkaline Phosphatase 61 Creatine Kinase Creatine Kinase Index CK-MB (CK-2) Troponin I Total Protein 5.6 L Albumin 2.2 L Opiates Screen Methadone Screen Barbiturate Screen Phencyclidine Screen Ur Amphetamines Screen MDMA (Ecstasy) Screen Benzodiazepines Screen Cocaine Screen U Marijuana (THC) Screen 02/18/19 02/18/19 12:23 12:45 WBC RBC Hgb Hct MCV MCH MCHC RDW Plt Count MPV Absolute Neuts (auto) Neutrophils % Neutrophils % (Manual) Band Neutrophils % Lymphocytes % Lymphocytes % (Manual) Monocytes % Monocytes % (Manual) Eosinophils % Eosinophils % (Manual) Basophils % Basophils % (Manual) Myelocytes % (Man) Promyelocytes % (Man) Blast Cells % (Manual) Nucleated RBC % Metamyelocytes Platelet Estimate Macrocytosis PTT (Actin FS) Anticoagulation Therapy Puncture Site ABG pH ABG pCO2 at Pt Temp ABG pO2 at Pt Temp ABG HCO3 ABG O2 Sat (Measured) ABG O2 Content ABG Base Excess Santi Test O2 Delivery Device Oxygen Flow Rate Vent Mode Vent Rate Mechanical Rate Pressure Support Vent Sodium Potassium Chloride Carbon Dioxide Anion Gap BUN Creatinine Est GFR (CKD-EPI)AfAm Est GFR (CKD-EPI)NonAf POC Glucometer 256 Random Glucose Calcium Phosphorus Magnesium Total Bilirubin AST ALT Alkaline Phosphatase Creatine Kinase Creatine Kinase Index CK-MB (CK-2) Troponin I Total Protein Albumin Opiates Screen Negative Methadone Screen Negative Barbiturate Screen Negative Phencyclidine Screen Negative Ur Amphetamines Screen Negative MDMA (Ecstasy) Screen Negative Benzodiazepines Screen Positive A* Cocaine Screen Negative U Marijuana (THC) Screen Positive A* Active Medications Generic Name Dose Route Start Last Admin Trade Name Freq PRN Reason Stop Dose Admin Calcitriol 0.25 mcg 02/17/19 10:00 02/18/19 10:42 Rocaltrol - PO Not Given DAILY [facility] Calcium Acetate 667 mg 02/17/19 08:00 02/18/19 12:17 Phoslo - PO Not Given TIDCM [facility] Chlorhexidine Gluconate 1 applic 02/17/19 22:00 Hibiclens For Decolonization - TP HS [facility] Clotrimazole 1 applic 02/17/19 10:00 02/18/19 12:31 Lotrimin 1% Cream - TP 1 applic BID [facility] Administration Diltiazem HCl 30 mg 02/17/19 14:00 02/18/19 14:03 Cardizem - PO Not Given TID [facility] Heparin Sodium (Porcine) 5,000 unit 02/17/19 10:12 Heparin - IVPUSH PRN PRN APTT (SECONDS) <40 Heparin Sodium (Porcine) 1,000 unit 02/17/19 10:12 02/18/19 10:42 Heparin - IVPUSH 1,000 unit PRN PRN Administration APTT (SECONDS) 40-49 Heparin Sodium/Dextrose 25,000 units in 500 mls @ 20 mls/hr 02/17/19 10:15 10:45 Heparin Infusion - IVPB 1,300 units/hr TITR [facility] 26 mls/hr Administration Protocol 1,000 UNITS/HR Propofol 1,000,000 mcg in 100 mls @ 3.096 mls/hr 02/18/19 08:30 02/18/19 10: 15 Diprivan - IVPB 5 mcg/kg/min TITR [facility] 3.096 mls/hr Administration Protocol 5 MCG/KG/MIN Sodium Chloride 250 mls @ 3,000 mls/hr 02/18/19 13:39 Normal Saline - IV 02/19/19 13:39 PRN PRN Hypotension during Dialysis Sodium Chloride 1,000 mls @ 75 mls/hr 02/18/19 13:40 02/18/19 14:05 1/2 Normal Saline IV 75 mls/hr ASDIR [facility] Administration Insulin Aspart 1 vial 02/17/19 22:00 02/18/19 12:26 Novolog Vial Sliding Scale - SQ 6 units ACHS [facility] Administration Protocol Lamotrigine 100 mg 02/18/19 10:00 02/18/19 10:42 Lamictal - PO Not Given DAILY [facility] Mupirocin 1 applic 02/17/19 10:00 02/18/19 10:47 Bactroban Ointment (For Decolonization) - NS 02/22/19 09:59 1 applic BID [facility] Administration ASSESSMENT/PLAN: 68 M with PMH of DM, HTN, HLD, CKD, obesity, bipolar disorder, depression, and anxiety, who was brought to ED after being found down on the floor by brother with AMS. 1) AMS -Likely a toxic metabolic encephalopathy from uremia or electrolyte abnormalities or DKA -Patient intubated -F/U MRI -CT head negative -1/2 NS @150 ml/hr -Insulin drip held -Sliding scale insulin -Endocrinology consulted, appreciate recs -Neurology consulted, appreciate recs 2) SMITA -Hemodialysis today as per nephrology and family decision -Strict I/O -Rhabdomyolysis observed, CPK trending down. -Renal U/S unremarkable -Nephrology consulted, appreciate recs 3)New onset Afib -Replete Ca aggressively -Cardizem PO 30 mg TID PRN -Heparin drip held -Cardiology consulted, appreciate recs -Echo shows normal EF -Normal sinus now 4)History of Bipolar disorder -Continue home meds 5) Wounds on lower chest, upper abdomen -Wound Care consulted, appreciate recs -pain management PRN Dispo: ICU monitoring F: 1/2 NS @ 150 ml/hr E: Trend CMP. Replete as needed N: NPO Visit type - Emergency Visit Emergency Visit: Yes ED Registration Date: 02/16/19 Care time: The patient presented to the Emergency Department on the above date and was hospitalized for further evaluation of their emergent condition. - New Patient This patient is new to me today: No - Critical Care Critical Care patient: Yes Total Critical Care Time (in minutes): 30 Critical Care Statement: The care of this patient involved high complexity decision making to prevent further life threatening deterioration of the patient 's condition and/or to evaluate & treat vital organ system(s) failure or risk of failure. ATTENDING PHYSICIAN STATEMENT I saw and evaluated the patient. I reviewed the resident's note and discussed the case with the resident. I agree with the resident's findings and plan as documented. SUBJECTIVE: OBJECTIVE: ASSESSMENT AND PLAN:
--- NOTE | 2019-02-18 15:49 | PROC ---
Central Line Insertion Indication: Other (Dialysis) Risks and Benefits Explained: Yes Consent on Chart: Yes Central Line: Dialysis Cath, Tri Lumen Anesthesia: 2% Lidocaine Sterile Technique: Yes Ultrasound Guided Assistance: Yes Position: Left Femoral Sterile Dressing Applied: Yes
[2019-02-18 18:37] LABS: CALCIUM 8.9 mg/dL (8.5-10.1); CREATININE 2.6 mg/dL (0.55-1.3); POTASSIUM 3.6 mmol/L (3.5-5.1)
[2019-02-18 18:38] LABS: BLOOD UREA NITROGEN 87.6 mg/dL (7-18)
--- NOTE | 2019-02-18 18:54 | PN ---
Teaching Attending Note Name of Resident: Eb Harding ATTENDING PHYSICIAN STATEMENT I saw and evaluated the patient. I reviewed the resident's note and discussed the case with the resident. I agree with the resident's findings and plan as documented. SUBJECTIVE: unable to participate in medical interview. Intubated, mechanically ventilated, sedated. OBJECTIVE: Afebrile. Intubated/Sedated. Last Vital Signs Temp Pulse Resp BP Pulse Ox 97.9 F 71 14 87/59 L 96 02/18/19 18:00 02/18/19 18:00 02/18/19 18:00 02/18/19 18:00 02/18/19 12:40 HEENT - ET tube in situ Heart - S1, S2, RRR Lungs - good air entry bilaterally. Mechanically ventilated. Abdomen - Soft. Bowel Sounds normal. R sided abdominal wall rug-burn like wound , without surrounding cellulitis. Extremities - mild edema. rug burn wound to inner aspect L knee with eschar, no surrounding erythema. Laboratory Results - last 24 hr 02/17/19 02/17/19 02/18/19 21:50 21:50 00:14 WBC RBC Hgb Hct MCV MCH MCHC RDW Plt Count MPV Absolute Neuts (auto) Neutrophils % Neutrophils % (Manual) Band Neutrophils % Lymphocytes % Lymphocytes % (Manual) Monocytes % Monocytes % (Manual) Eosinophils % Eosinophils % (Manual) Basophils % Basophils % (Manual) Myelocytes % (Man) Promyelocytes % (Man) Blast Cells % (Manual) Nucleated RBC % Metamyelocytes Platelet Estimate Macrocytosis PTT (Actin FS) 46.7 H Anticoagulation Therapy Puncture Site ABG pH ABG pCO2 at Pt Temp ABG pO2 at Pt Temp ABG HCO3 ABG O2 Sat (Measured) ABG O2 Content ABG Base Excess Santi Test O2 Delivery Device Oxygen Flow Rate Vent Mode Vent Rate Mechanical Rate Pressure Support Vent Sodium 151 H Potassium 5.1 Chloride 121 H Carbon Dioxide 19 L Anion Gap 11 BUN 213.3 H* Creatinine 4.9 H Est GFR (CKD-EPI)AfAm 13.16 Est GFR (CKD-EPI)NonAf 11.35 POC Glucometer 227 Random Glucose 256 H Calcium 9.2 Total Bilirubin 1.0 AST 32 ALT 32 Alkaline Phosphatase 57 Total Protein 5.6 L Albumin 2.2 L Opiates Screen Methadone Screen Barbiturate Screen Phencyclidine Screen Ur Amphetamines Screen MDMA (Ecstasy) Screen Benzodiazepines Screen Cocaine Screen U Marijuana (THC) Screen 02/18/19 02/18/19 02/18/19 06:52 07:05 08:20 WBC RBC Hgb Hct MCV MCH MCHC RDW Plt Count MPV Absolute Neuts (auto) Neutrophils % Neutrophils % (Manual) Band Neutrophils % Lymphocytes % Lymphocytes % (Manual) Monocytes % Monocytes % (Manual) Eosinophils % Eosinophils % (Manual) Basophils % Basophils % (Manual) Myelocytes % (Man) Promyelocytes % (Man) Blast Cells % (Manual) Nucleated RBC % Metamyelocytes Platelet Estimate Macrocytosis PTT (Actin FS) 43.9 H Anticoagulation Therapy No Result Required. Puncture Site Right radial ABG pH 7.12 L* ABG pCO2 at Pt Temp 73.6 H* ABG pO2 at Pt Temp 121 H ABG HCO3 22.8 ABG O2 Sat (Measured) 96.8 ABG O2 Content 22.2 ABG Base Excess -9.0 L Santi Test Positive O2 Delivery Device Nasal Oxygen Flow Rate 5l Vent Mode No Result Required. Vent Rate No Result Required. Mechanical Rate No Result Required. Pressure Support Vent No Result Required. Sodium Potassium Chloride Carbon Dioxide Anion Gap BUN Creatinine Est GFR (CKD-EPI)AfAm Est GFR (CKD-EPI)NonAf POC Glucometer 238 Random Glucose Calcium Total Bilirubin AST ALT Alkaline Phosphatase Total Protein Albumin Opiates Screen Methadone Screen Barbiturate Screen Phencyclidine Screen Ur Amphetamines Screen MDMA (Ecstasy) Screen Benzodiazepines Screen Cocaine Screen U Marijuana (THC) Screen 02/18/19 02/18/19 02/18/19 08:20 08:20 09:45 WBC 11.7 H RBC 4.60 Hgb 14.5 Hct 45.1 MCV 98.1 H MCH 31.6 MCHC 32.2 RDW 14.1 Plt Count 203 MPV 9.9 Absolute Neuts (auto) 10.8 H Neutrophils % 92.1 H Neutrophils % (Manual) 92.0 H Band Neutrophils % 0.0 Lymphocytes % 1.5 L D Lymphocytes % (Manual) 3.0 L D Monocytes % 6.1 Monocytes % (Manual) 5 D Eosinophils % 0.2 Eosinophils % (Manual) 0.0 Basophils % 0.1 Basophils % (Manual) 0.0 Myelocytes % (Man) 0 Promyelocytes % (Man) 0 Blast Cells % (Manual) 0 Nucleated RBC % 0 Metamyelocytes 0 Platelet Estimate Normal Macrocytosis 2+ PTT (Actin FS) Anticoagulation Therapy No Result Required. Puncture Site Right radial ABG pH 7.30 L ABG pCO2 at Pt Temp 46.1 H ABG pO2 at Pt Temp 208 H ABG HCO3 21.9 L ABG O2 Sat (Measured) 99.1 H ABG O2 Content 28.2 ABG Base Excess -4.7 L Santi Test Positive O2 Delivery Device No Result Required. Oxygen Flow Rate 100 Vent Mode No Result Required. Vent Rate 5 Mechanical Rate No Result Required. Pressure Support Vent No Result Required. Sodium 152 H Potassium 5.9 H Chloride 119 H Carbon Dioxide 27 Anion Gap 6 L BUN 205.0 H* Creatinine 5.0 H Est GFR (CKD-EPI)AfAm 12.84 Est GFR (CKD-EPI)NonAf 11.08 POC Glucometer Random Glucose 288 H Calcium 9.2 Total Bilirubin 1.3 H AST 78 H ALT 44 Alkaline Phosphatase 61 Total Protein 5.6 L Albumin 2.2 L Opiates Screen Methadone Screen Barbiturate Screen Phencyclidine Screen Ur Amphetamines Screen MDMA (Ecstasy) Screen Benzodiazepines Screen Cocaine Screen U Marijuana (THC) Screen 02/18/19 02/18/19 02/18/19 12:23 12:45 16:50 WBC RBC Hgb Hct MCV MCH MCHC RDW Plt Count MPV Absolute Neuts (auto) Neutrophils % Neutrophils % (Manual) Band Neutrophils % Lymphocytes % Lymphocytes % (Manual) Monocytes % Monocytes % (Manual) Eosinophils % Eosinophils % (Manual) Basophils % Basophils % (Manual) Myelocytes % (Man) Promyelocytes % (Man) Blast Cells % (Manual) Nucleated RBC % Metamyelocytes Platelet Estimate Macrocytosis PTT (Actin FS) Anticoagulation Therapy Puncture Site ABG pH ABG pCO2 at Pt Temp ABG pO2 at Pt Temp ABG HCO3 ABG O2 Sat (Measured) ABG O2 Content ABG Base Excess Santi Test O2 Delivery Device Oxygen Flow Rate Vent Mode Vent Rate Mechanical Rate Pressure Support Vent Sodium 144 Potassium 3.6 Chloride 105 Carbon Dioxide 30 Anion Gap 9 BUN 87.6 H Creatinine 2.6 H Est GFR (CKD-EPI)AfAm 28.31 Est GFR (CKD-EPI)NonAf 24.42 POC Glucometer 256 Random Glucose 200 H Calcium 8.9 Total Bilirubin AST ALT Alkaline Phosphatase Total Protein Albumin Opiates Screen Negative Methadone Screen Negative Barbiturate Screen Negative Phencyclidine Screen Negative Ur Amphetamines Screen Negative MDMA (Ecstasy) Screen Negative Benzodiazepines Screen Positive A* Cocaine Screen Negative U Marijuana (THC) Screen Positive A* 02/18/19 17:30 WBC RBC Hgb Hct MCV MCH MCHC RDW Plt Count MPV Absolute Neuts (auto) Neutrophils % Neutrophils % (Manual) Band Neutrophils % Lymphocytes % Lymphocytes % (Manual) Monocytes % Monocytes % (Manual) Eosinophils % Eosinophils % (Manual) Basophils % Basophils % (Manual) Myelocytes % (Man) Promyelocytes % (Man) Blast Cells % (Manual) Nucleated RBC % Metamyelocytes Platelet Estimate Macrocytosis PTT (Actin FS) Anticoagulation Therapy Puncture Site ABG pH ABG pCO2 at Pt Temp ABG pO2 at Pt Temp ABG HCO3 ABG O2 Sat (Measured) ABG O2 Content ABG Base Excess Santi Test O2 Delivery Device Oxygen Flow Rate Vent Mode Vent Rate Mechanical Rate Pressure Support Vent Sodium Potassium Chloride Carbon Dioxide Anion Gap BUN Creatinine Est GFR (CKD-EPI)AfAm Est GFR (CKD-EPI)NonAf POC Glucometer 200 Random Glucose Calcium Total Bilirubin AST ALT Alkaline Phosphatase Total Protein Albumin Opiates Screen Methadone Screen Barbiturate Screen Phencyclidine Screen Ur Amphetamines Screen MDMA (Ecstasy) Screen Benzodiazepines Screen Cocaine Screen U Marijuana (THC) Screen Current Medications Generic Name Dose Route Start Last Admin Trade Name Freq PRN Reason Stop Dose Admin Calcitriol 0.25 mcg 02/17/19 10:00 02/18/19 10:42 Rocaltrol - PO Not Given DAILY [facility] Calcium Acetate 667 mg 02/17/19 08:00 02/18/19 17:32 Phoslo - PO Not Given TIDCM [facility] Chlorhexidine Gluconate 1 applic 02/17/19 22:00 Hibiclens For Decolonization - TP HS [facility] Clotrimazole 1 applic 02/17/19 10:00 02/18/19 12:31 Lotrimin 1% Cream - TP 1 applic BID [facility] Administration Diltiazem HCl 30 mg 02/17/19 14:00 02/18/19 14:03 Cardizem - PO Not Given TID [facility] Propofol 1,000,000 mcg in 100 mls @ 3.096 mls/hr 02/18/19 08:30 02/18/19 16: 00 Diprivan - IVPB 5 mcg/kg/min TITR [facility] 3.096 mls/hr Titration Protocol 5 MCG/KG/MIN Sodium Chloride 250 mls @ 3,000 mls/hr 02/18/19 13:39 Normal Saline - IV 02/19/19 13:39 PRN PRN Hypotension during Dialysis Sodium Chloride 1,000 mls @ 75 mls/hr 02/18/19 13:40 02/18/19 14:05 1/2 Normal Saline IV 75 mls/hr ASDIR [facility] Administration Insulin Aspart 1 vial 02/17/19 22:00 02/18/19 17:32 Novolog Vial Sliding Scale - SQ 2 units ACHS [facility] Administration Protocol Lamotrigine 100 mg 02/18/19 10:00 02/18/19 10:42 Lamictal - PO Not Given DAILY [facility] Mupirocin 1 applic 02/17/19 10:00 02/18/19 10:47 Bactroban Ointment (For Decolonization) - NS 02/22/19 09:59 1 applic BID [facility] Administration Home Medications Medication Instructions Recorded Allopurinol [Zyloprim -] 200 mg DAILY 02/17/19 Amlodipine Besylate 10 mg PO DAILY 02/17/19 Diazepam [Valium] 10 mg PO TID 02/17/19 Insulin Aspart [Novolog] 2 units TID 02/17/19 Insulin Glargine,Hum.rec.anlog 95 unit HS 02/17/19 [Toumelisa Solostar] Lamotrigine 100 mg DAILY 02/17/19 Losartan/Hydrochlorothiazide 1 tablet DAILY 02/17/19 [Losartan-Hctz 100-12.5 mg Tab] Quetiapine Fumarate [Seroquel -] 200 mg PO HS 02/17/19 ASSESSMENT/PLAN: 68 year old male with history of DM 2, HTN, HLD, CKD, Obesity, Bipolar Disorder , Depression, Anxiety, lives alone, found on floor of his house by his brother, noted to have SMITA, DKA, Multiple electrolyte abnormalities, AMS. 1. Acute Hypercapneic Respiratory Failure, etiology unclear. 2. Syncope/Fall with LOC and Acute Encephalopathy (sec to Uremia vs electrolyte disturbances vs Acidosis) Initially recovered mental status after adequate hydration and electrolyte replacement, but then became unresponsive this AM requiring intubation. Initial CT Head negative for acute findings. Will repeat CT Head to ensure no acute interval change. 3. Atrial Fibrillation with RVR - resolved. Cardize drip held. Cardizem po also held for now. Started on Heparin drip - will hold pending repeat CT Brain due to rapid decline in mental status. 4. SMITA on CKD 3 - likely sec to hypovolemia/ATN due to dehydration versus Acute Rhabdomyolysis - improved s/p initiation of HD by Nephrology via femoral HD catheter. Renal US - no obstruction. 5. Hypernatremia sec to dehydration - ongoing. 6. Hypokalemia/Hypocalcemia - repleted. 7. DKA - resolved. Insulin drip discontinued. Endocrine consulted. 8. Bipolar Disorder - normally on Seroquel, Lamictal, Diazepam. 9. HTN - currently borderline BP - Norvasc, Losartan, HCTZ held. 10. Wounds R abdominal wall and L knee ? sec to fall/carpet burn - no surrounding erythema/infection. Wound Care consult for further recommendations. DVT Px - Heparin drip held pending repeat CT Head.
[2019-02-18] MEDS: CHLORHEXIDINE GLUCONATE 4% CLEANSER FOR DECOLONIZATION TP SCH (21:59)
[2019-02-18] MEDS ORDERED: QUEtiapine FUMARATE 200 MG TABLET PO SCH (22:00)
--- NOTE | 2019-02-19 00:08 | PN ---
Progress Note, Physician Chief Complaint: INTUBATED ALERT RESPONDING TO VERBAL COMAND - Current Medication List Current Medications: Active Medications Calcitriol (Rocaltrol -) 0.25 mcg PO DAILY [facility] Last Admin: 02/18/19 10:42 Dose: Not Given Calcium Acetate (Phoslo -) 667 mg PO TIDCM [facility] Last Admin: 02/18/19 17:32 Dose: Not Given Chlorhexidine Gluconate (Hibiclens For Decolonization -) 1 applic TP HS [facility] Last Admin: 02/18/19 21:59 Dose: 1 applic Clotrimazole (Lotrimin 1% Cream -) 1 applic TP BID [facility] Last Admin: 02/18/19 21:58 Dose: 1 applic Diltiazem HCl (Cardizem -) 30 mg PO TID [facility] Last Admin: 02/18/19 14:03 Dose: Not Given Propofol (Diprivan -) 1,000,000 mcg in 100 mls @ 3.096 mls/hr IVPB TITR [facility]; Protocol Last Titration: 02/18/19 16:00 Dose: 5 mcg/kg/min, 3.096 mls/hr Sodium Chloride (Normal Saline -) 250 mls @ 3,000 mls/hr IV PRN PRN PRN Reason: Hypotension during Dialysis Stop: 02/19/19 13:39 Sodium Chloride (1/2 Normal Saline) 1,000 mls @ 75 mls/hr IV ASDIR [facility] Last Admin: 02/18/19 23:00 Dose: 75 mls/hr Insulin Aspart (Novolog Vial Sliding Scale -) 1 vial SQ ACHS [facility]; Protocol Last Admin: 02/18/19 22:00 Dose: 2 units Lamotrigine (Lamictal -) 100 mg PO DAILY [facility] Last Admin: 02/18/19 10:42 Dose: Not Given Mupirocin (Bactroban Ointment (For Decolonization) -) 1 applic NS BID [facility] Stop: 02/22/19 09:59 Last Admin: 02/18/19 21:58 Dose: 1 applic - Objective Vital Signs: Vital Signs Temperature 97.8 F 02/18/19 20:00 Pulse Rate 71 02/18/19 20:10 Respiratory Rate 14 02/18/19 21:00 Blood Pressure 110/76 02/18/19 20:00 O2 Sat by Pulse Oximetry (%) 94 L 02/18/19 21:00 Constitutional: Yes: Anxious Eyes: Yes: EOM Intact HENT: Yes: Normocephalic Neck: Yes: Trachea Midline Cardiovascular: Yes: Tachycardia Respiratory: Yes: Intubated Gastrointestinal: Yes: Normal Bowel Sounds ...Rectal Exam: Yes: Deferred Musculoskeletal: Yes: Back Pain, Joint Stiffness, Muscle Pain, Muscle Weakness Extremities: Yes: Cold, Erythema Edema: Yes Wound/Incision: Yes: Open to air, Draining, Excoriated Neurological: Yes: Alert Labs: CBC, BMP 02/18/19 08:20 02/18/19 16:50 INR, PTT INR 1.54 (0.83-1.09) H 02/17/19 05:13 Problem List - Problems (1) DKA (diabetic ketoacidoses) Problems reviewed: Yes Code(s): E11.10 - TYPE 2 DIABETES MELLITUS WITH KETOACIDOSIS WITHOUT COMA Qualifiers: Diabetes mellitus type: type 2 (2) HTN (hypertension) Problems reviewed: Yes Code(s): I10 - ESSENTIAL (PRIMARY) HYPERTENSION (3) Hypercholesterolemia Problems reviewed: Yes Code(s): E78.00 - PURE HYPERCHOLESTEROLEMIA, UNSPECIFIED (4) Leukocytosis Problems reviewed: Yes Code(s): D72.829 - ELEVATED WHITE BLOOD CELL COUNT, UNSPECIFIED (5) Renal failure Problems reviewed: Yes Code(s): N19 - UNSPECIFIED KIDNEY FAILURE (6) Rhabdomyolysis Problems reviewed: Yes Code(s): M62.82 - RHABDOMYOLYSIS (7) Uremia Code(s): N19 - UNSPECIFIED KIDNEY FAILURE Assessment/Plan Current Active Problems Bipolar disorder (Acute) DKA (diabetic ketoacidoses) (Acute) HTN (hypertension) (Acute) Hypercholesterolemia (Acute) Leukocytosis (Acute) Renal failure (Acute) Rhabdomyolysis (Acute) Stroke (Acute) Unstageable pressure injury of skin and tissue (Acute) Uremia (Acute) Abnormal Lab Results 02/18/19 02/18/19 02/18/19 07:05 08:20 08:20 WBC 11.7 H MCV 98.1 H Absolute Neuts (auto) 10.8 H Neutrophils % 92.1 H Neutrophils % (Manual) 92.0 H Lymphocytes % 1.5 L D Lymphocytes % (Manual) 3.0 L D PTT (Actin FS) 43.9 H ABG pH 7.12 L* ABG pCO2 at Pt Temp 73.6 H* ABG pO2 at Pt Temp 121 H ABG HCO3 ABG O2 Sat (Measured) ABG Base Excess -9.0 L Sodium Potassium Chloride Anion Gap BUN Creatinine Random Glucose Total Bilirubin AST Total Protein Albumin Benzodiazepines Screen U Marijuana (THC) Screen 02/18/19 02/18/19 02/18/19 08:20 09:45 12:45 WBC MCV Absolute Neuts (auto) Neutrophils % Neutrophils % (Manual) Lymphocytes % Lymphocytes % (Manual) PTT (Actin FS) ABG pH 7.30 L ABG pCO2 at Pt Temp 46.1 H ABG pO2 at Pt Temp 208 H ABG HCO3 21.9 L ABG O2 Sat (Measured) 99.1 H ABG Base Excess -4.7 L Sodium 152 H Potassium 5.9 H Chloride 119 H Anion Gap 6 L BUN 205.0 H* Creatinine 5.0 H Random Glucose 288 H Total Bilirubin 1.3 H AST 78 H Total Protein 5.6 L Albumin 2.2 L Benzodiazepines Screen Positive A* U Marijuana (THC) Screen Positive A* 02/18/19 16:50 WBC MCV Absolute Neuts (auto) Neutrophils % Neutrophils % (Manual) Lymphocytes % Lymphocytes % (Manual) PTT (Actin FS) ABG pH ABG pCO2 at Pt Temp ABG pO2 at Pt Temp ABG HCO3 ABG O2 Sat (Measured) ABG Base Excess Sodium Potassium Chloride Anion Gap BUN 87.6 H Creatinine 2.6 H Random Glucose 200 H Total Bilirubin AST Total Protein Albumin Benzodiazepines Screen U Marijuana (THC) Screen PLAN: BGM QID NOVOLOG CVG Current Medications Generic Name Dose Route Start Last Admin Trade Name Freq PRN Reason Stop Dose Admin Calcitriol 0.25 mcg 02/17/19 10:00 02/18/19 10:42 Rocaltrol - PO Not Given DAILY [facility] Calcium Acetate 667 mg 02/17/19 08:00 02/18/19 17:32 Phoslo - PO Not Given TIDCM [facility] Chlorhexidine Gluconate 1 applic 02/17/19 22:00 02/18/19 21:59 Hibiclens For Decolonization - TP 1 applic HS [facility] Administration Clotrimazole 1 applic 02/17/19 10:00 02/18/19 21:58 Lotrimin 1% Cream - TP 1 applic BID [facility] Administration Diltiazem HCl 30 mg 02/17/19 14:00 02/18/19 14:03 Cardizem - PO Not Given TID [facility] Propofol 1,000,000 mcg in 100 mls @ 3.096 mls/hr 02/18/19 08:30 02/18/19 16: 00 Diprivan - IVPB 5 mcg/kg/min TITR [facility] 3.096 mls/hr Titration Protocol 5 MCG/KG/MIN Sodium Chloride 250 mls @ 3,000 mls/hr 02/18/19 13:39 Normal Saline - IV 02/19/19 13:39 PRN PRN Hypotension during Dialysis Sodium Chloride 1,000 mls @ 75 mls/hr 02/18/19 13:40 02/18/19 23:00 1/2 Normal Saline IV 75 mls/hr ASDIR [facility] Administration Insulin Aspart 1 vial 02/17/19 22:00 02/18/19 22:00 Novolog Vial Sliding Scale - SQ 2 units ACHS [facility] Administration Protocol Lamotrigine 100 mg 02/18/19 10:00 02/18/19 10:42 Lamictal - PO Not Given DAILY [facility] Mupirocin 1 applic 02/17/19 10:00 02/18/19 21:58 Bactroban Ointment (For Decolonization) - NS 02/22/19 09:59 1 applic BID [facility] Administration FLUID IMBALANCE CORRECTED CONTINUE REHYDRATION .5NS IV ANTIBIOTIC PER ID
[2019-02-19] MEDS: INSULIN SLIDING SCALE (NOVOLOG) 1 VIAL SQ SCH ×5 (06:18→23:45)
[2019-02-19 07:01] LABS: BASO % 0.1 % (0-2.0); EOS % 0.6 % (0-4.5); HEMATOCRIT 41.1 % (35.4-49); HEMOGLOBIN 13.3 GM/dL (11.7-16.9); LYMPH % 4.5 % (8-40); MCH 31.2 pg (25.7-33.7); MCHC 32.3 g/dl (32.0-35.9); MEAN CELL VOLUME 96.5 fl (80-96); MEAN PLT VOLUME 10.1 fl (7.5-11.1); MONO % 5.8 % (3.8-10.2); PLATELET COUNT 155 K/MM3 (134-434); RBC 4.26 M/mm3 (4.00-5.60); WHITE BLOOD COUNT 13.1 K/mm3 (4.0-10.0)
[2019-02-19 07:55] LABS: BILIRUBIN,TOTAL 1.4 mg/dL (0.2-1); CREATININE 4.1 mg/dL (0.55-1.3); POTASSIUM 4.4 mmol/L (3.5-5.1)
[2019-02-19 07:58] LABS: ARTERIAL BLD GAS O2 SATURATION 99.2 % (95-98); ARTERIAL BLOOD GAS BASE EXCESS 6.4 meq/l (-2-2); ARTERIAL BLOOD GAS PCO2 37.5 mmHg (35-45); ARTERIAL BLOOD GAS PO2 168 mmHg (80-100); ARTERIAL BLOOD GAS pH 7.51 (7.35-7.45)
[2019-02-19 08:03] LABS: BLOOD UREA NITROGEN 138.1 mg/dL (7-18)
[2019-02-19 08:11] LABS: ALLENS TEST POSITIVE
[2019-02-19] MEDS ORDERED: SODIUM CHLORIDE 250 ML IV PRN (08:25)
[2019-02-19] MEDS: dilTIAZem HCL 30 MG TABLET (FP) PO SCH ×4 (08:45→23:45)
--- NOTE | 2019-02-19 09:09 | PN ---
Progress Note (short form) - Note Progress Note: Neurology CHIEF COMPLAINT: CVA PCP: unknown, psychiatrist Dr. Steve Navarro HISTORY OF PRESENT ILLNESS: Mr. Burnette is a 68 y/o man with a pmhx of kidney disease, DM, HTN, HLD, obesity, bipolar disorder, depression, and anxiety who is BIBA after being found down in his apt for an unknown period of time. History obtained from chart as pt was confused on exam and was unable to answer questions. Per the patient's brother, the pt had an appointment with a friend I gave admission and when he did not show up the pt's friend called the police to do a wellness check (the pt did not name the friend). Police found the pt down in his apartment and he was brought to the hospital by EMS, unclear how long the pt was down for. Per the patient's brother, the pt is normally fully independent and able to complete all his ADLs unassisted. He lives alone in an apartment in [facility] and per the brother the pt keeps up with all his doctor appointments and takes his medications as prescribed. The pt's brother was unable to state what medicines his brother uses or which pharmacy his brother uses however states that his brother's psychiatrist is Dr. Steve Navarro and that he may know the answers to these questions. The brother reports he last saw the patient about 3 months ago. I was contacted by the emergency department for further evaluation as the patient demonstrated an NIH stroke scale of 14. Time of onset was unknown and additionally patient with generalized confusion and weakness more so than just focal deficits and therefore concern for possible underlying toxic metabolic, infectious, diffuse process. CT head without acute changes but there was multiple metabolic derangements on lab work. White blood cell count was 12 on admission. BUN/ creatinine was 252//6.2 on admission. WBC, BUN/Cr. trending down. Lastly, blood glucose was 329 on admission, being optimized. Carotid Doppler completed, small- moderate yesenia soft plaque at the right common carotid bifurcation with intimal thickening and minimal plaque buildup on the left without evidence of hemodynamically significant stenosis bilaterally. Brain MRI ordered, not yet completed. Patient under critical care management, sedated and on mechanical ventilation status post intubation 02/18AM. Although on sedation, patient is arousable and knotting during my conversation with him.. Explained to patient that he is in the hospital and has multiple ongoing illnesses that are being treated. May be able to wean off sedation and extubated but will defer to critical care team and ICU attending. Significant improvement in mental status. Active Medications Calcitriol (Rocaltrol -) 0.25 mcg PO DAILY [facility] Last Admin: 02/18/19 10:42 Dose: Not Given Calcium Acetate (Phoslo -) 667 mg PO TIDCM [facility] Last Admin: 02/18/19 17:32 Dose: Not Given Chlorhexidine Gluconate (Hibiclens For Decolonization -) 1 applic TP HS [facility] Last Admin: 02/18/19 21:59 Dose: 1 applic Clotrimazole (Lotrimin 1% Cream -) 1 applic TP BID [facility] Last Admin: 02/18/19 21:58 Dose: 1 applic Diltiazem HCl (Cardizem -) 30 mg PO TID [facility] Last Admin: 02/19/19 08:45 Dose: Not Given Propofol (Diprivan -) 1,000,000 mcg in 100 mls @ 3.096 mls/hr IVPB TITR [facility]; Protocol Last Titration: 02/18/19 16:00 Dose: 5 mcg/kg/min, 3.096 mls/hr Sodium Chloride (Normal Saline -) 250 mls @ 3,000 mls/hr IV PRN PRN PRN Reason: Hypotension during Dialysis Stop: 02/19/19 13:39 Sodium Chloride (1/2 Normal Saline) 1,000 mls @ 75 mls/hr IV ASDIR [facility] Last Admin: 02/18/19 23:00 Dose: 75 mls/hr Sodium Chloride (Normal Saline -) 250 mls @ 3,000 mls/hr IV PRN PRN PRN Reason: Hypotension during Dialysis Stop: 02/20/19 08:25 Insulin Aspart (Novolog Vial Sliding Scale -) 1 vial SQ ACHS [facility]; Protocol Last Admin: 02/19/19 08:46 Dose: Not Given Lamotrigine (Lamictal -) 100 mg PO DAILY [facility] Last Admin: 02/18/19 10:42 Dose: Not Given Mupirocin (Bactroban Ointment (For Decolonization) -) 1 applic NS BID [facility] Stop: 02/22/19 09:59 Last Admin: 02/18/19 21:58 Dose: 1 applic PHYSICAL EXAMINATION Vital Signs Period Temp Pulse Resp BP Sys/Verdugo Pulse Ox Last 24 Hr 97.8 F-99.7 F 66-83 12-18 85-127/54-76 94-96 GENERAL: intubated and sedated HEAD: Normal with no signs of trauma. EYES: Pupils equal, round and reactive to light, extraocular movements intact, sclera anicteric, conjunctiva clear. No lid lag. LUNGS: Breath sounds equal, HEART: Regular rate irregularly irregular rhythm, normal S1 and S2 without murmur. ABDOMEN: Soft, not distended, normoactive bowel sounds, skin breakdown on R side of abdomen with sloughing wounds and ecchymosis, very TTP, guarding, no rebound, no masses, reducible umbilical hernia. UPPER EXTREMITIES: 2+ pulses, warm, well-perfused. No cyanosis. No clubbing. No peripheral edema. Cuts on bilateral elbows LOWER EXTREMITIES: 2+ pulses, warm, well-perfused. No calf tenderness. No peripheral edema. NEUROLOGICAL: intuabted, response to voice, not moving extremities to command, response to pain PSYCHIATRIC: Cooperative. poor eye contact. SKIN: +pressure ulcer to the right hip, skin breakdown to the right side of the abdomen, Abrasions to the right side of the face. Warm and dry. CBCD WBC 13.1 K/mm3 (4.0-10.0) H 02/19/19 05:30 RBC 4.26 M/mm3 (4.00-5.60) 02/19/19 05:30 Hgb 13.3 GM/dL (11.7-16.9) 02/19/19 05:30 Hct 41.1 % (35.4-49) 02/19/19 05:30 MCV 96.5 fl (80-96) H 02/19/19 05:30 MCHC 32.3 g/dl (32.0-35.9) 02/19/19 05:30 RDW 14.0 % (11.9-15.9) 02/19/19 05:30 Plt Count 155 K/MM3 (134-434) D 02/19/19 05:30 MPV 10.1 fl (7.5-11.1) 02/19/19 05:30 CMP Sodium 151 mmol/L (136-145) H 02/19/19 05:30 Potassium 4.4 mmol/L (3.5-5.1) 02/19/19 05:30 Chloride 108 mmol/L (98-107) H 02/19/19 05:30 Carbon Dioxide 32 mmol/L (21-32) 02/19/19 05:30 Anion Gap 11 MMOL/L (8-16) 02/19/19 05:30 BUN 138.1 mg/dL (7-18) H* 02/19/19 05:30 Creatinine 4.1 mg/dL (0.55-1.3) H 02/19/19 05:30 Random Glucose 252 mg/dL (74-106) H 02/19/19 05:30 Calcium 9.0 mg/dL (8.5-10.1) 02/19/19 05:30 Total Bilirubin 1.4 mg/dL (0.2-1) H 02/19/19 05:30 AST 43 U/L (15-37) H 02/19/19 05:30 ALT 36 U/L (13-61) 02/19/19 05:30 Alkaline Phosphatase 57 U/L (45-117) 02/19/19 05:30 Total Protein 5.0 g/dl (6.4-8.2) L 02/19/19 05:30 Albumin 2.0 g/dl (3.4-5.0) L 02/19/19 05:30 CARDIAC ENZYMES Creatine Kinase 950 U/L (26-308) H 02/17/19 16:15 Troponin I 0.04 ng/ml (0.00-0.05) 02/17/19 16:15 ASSESSMENT/PLAN: Mr. Burnette is a 68 y/o man with a pmhx of kidney disease, DM, HTN, HLD, obesity , bipolar disorder, depression, and anxiety who is BIBA after being found down in his apt for an unknown period of time. History obtained from chart as pt was confused on exam and was unable to answer questions. Per the patient's brother, the pt had an appointment with a friend I gave admission and when he did not show up the pt's friend called the police to do a wellness check (the pt did not name the friend). Police found the pt down in his apartment and he was brought to the hospital by EMS, unclear how long the pt was down for. Per the patient's brother, the pt is normally fully independent and able to complete all his ADLs unassisted. He lives alone in an apartment in [facility] and per the brother the pt keeps up with all his doctor appointments and takes his medications as prescribed. The pt's brother was unable to state what medicines his brother uses or which pharmacy his brother uses however states that his brother's psychiatrist is Dr. Steve Navarro and that he may know the answers to these questions. The brother reports he last saw the patient about 3 months ago. I was contacted by the emergency department for further evaluation as the patient demonstrated an NIH stroke scale of 14. Time of onset was unknown and additionally patient with generalized confusion and weakness more so than just focal deficits and therefore concern for possible underlying toxic metabolic, infectious, diffuse process. CT head without acute changes but there was multiple metabolic derangements on lab work. White blood cell count was 12 on admission. BUN/creatinine was 252//6.2 on admission. WBC, BUN/Cr. trending down. Lastly, blood glucose was 329 on admission, continues to be optimized. Carotid Doppler completed, small-moderate yesenia soft plaque at the right common carotid bifurcation with intimal thickening and minimal plaque buildup on the left without evidence of hemodynamically significant stenosis bilaterally. Would benefit from MRI brain to rule out CVA this seems more to be a diffuse generalized process and requires further medical optimization. Brain MRI ordered , not yet completed. Patient under critical care management, sedated and on mechanical ventilation status post intubation 02/18AM. Diabetic ketoacidosis, monitor glucose, maintain euglycemic range. Monitor electrolytes, follow-up recommendations from nephrology, IV hydration as tolerated, correct derangments. Monitor blood pressure, maintain less than 150/90. Follow up cultures. Wound care. continue ICU level of monitoring. Although on sedation, patient is arousable and nodding during my conversation with him.. Explained to patient that he is in the hospital and has multiple ongoing illnesses that are being treated. May be able to wean off sedation and extubated but will defer to critical care team and ICU attending. Significant improvement in mental status. Critical care time 40 mins.
--- NOTE | 2019-02-19 09:22 | PN ---
Progress Note, Physician History of Present Illness: Arousable on vent, undergoing HD, remains in SR, no PAF. - Current Medication List Current Medications: Active Medications Calcitriol (Rocaltrol -) 0.25 mcg PO DAILY [facility] Last Admin: 02/18/19 10:42 Dose: Not Given Calcium Acetate (Phoslo -) 667 mg PO TIDCM [facility] Last Admin: 02/18/19 17:32 Dose: Not Given Chlorhexidine Gluconate (Hibiclens For Decolonization -) 1 applic TP HS [facility] Last Admin: 02/18/19 21:59 Dose: 1 applic Clotrimazole (Lotrimin 1% Cream -) 1 applic TP BID [facility] Last Admin: 02/18/19 21:58 Dose: 1 applic Diltiazem HCl (Cardizem -) 30 mg PO TID [facility] Last Admin: 02/19/19 08:45 Dose: Not Given Propofol (Diprivan -) 1,000,000 mcg in 100 mls @ 3.096 mls/hr IVPB TITR [facility]; Protocol Last Titration: 02/18/19 16:00 Dose: 5 mcg/kg/min, 3.096 mls/hr Sodium Chloride (Normal Saline -) 250 mls @ 3,000 mls/hr IV PRN PRN PRN Reason: Hypotension during Dialysis Stop: 02/19/19 13:39 Sodium Chloride (1/2 Normal Saline) 1,000 mls @ 75 mls/hr IV ASDIR [facility] Last Admin: 02/18/19 23:00 Dose: 75 mls/hr Sodium Chloride (Normal Saline -) 250 mls @ 3,000 mls/hr IV PRN PRN PRN Reason: Hypotension during Dialysis Stop: 02/20/19 08:25 Insulin Aspart (Novolog Vial Sliding Scale -) 1 vial SQ ACHS [facility]; Protocol Last Admin: 02/19/19 08:46 Dose: Not Given Lamotrigine (Lamictal -) 100 mg PO DAILY [facility] Last Admin: 02/18/19 10:42 Dose: Not Given Mupirocin (Bactroban Ointment (For Decolonization) -) 1 applic NS BID [facility] Stop: 02/22/19 09:59 Last Admin: 02/18/19 21:58 Dose: 1 applic - Objective Vital Signs: Vital Signs Temperature 99.7 F H 02/19/19 06:00 Pulse Rate 83 02/19/19 08:00 Respiratory Rate 17 02/19/19 08:00 Blood Pressure 115/66 02/19/19 08:00 O2 Sat by Pulse Oximetry (%) 96 02/18/19 23:00 Constitutional: Yes: No Distress, Calm Neck: Yes: Supple Cardiovascular: Yes: Regular Rate and Rhythm Respiratory: Yes: Intubated, Mechanically Ventilated Gastrointestinal: Yes: Normal Bowel Sounds, Soft Edema: No Labs: CBC, BMP 02/19/19 05:30 02/19/19 05:30 INR, PTT INR 1.54 (0.83-1.09) H 02/17/19 05:13 - ....Imaging EKG: Report Reviewed (Tele: NSR) Problem List - Problems (1) Paroxysmal atrial fibrillation with rapid ventricular response Code(s): I48.0 - PAROXYSMAL ATRIAL FIBRILLATION Assessment/Plan 02/17/2019 Echo: Normal LV size with mild cLVH, LVEF 60-65%, normal LA size, mild ao 4.0 cm Problem List - Problems (1) HTN (hypertension) Code(s): I10 - ESSENTIAL (PRIMARY) HYPERTENSION (2) Hypercholesterolemia Code(s): E78.00 - PURE HYPERCHOLESTEROLEMIA, UNSPECIFIED (3) Bipolar disorder Code(s): F31.9 - BIPOLAR DISORDER, UNSPECIFIED (4) Leukocytosis Code(s): D72.829 - ELEVATED WHITE BLOOD CELL COUNT, UNSPECIFIED (5) Renal failure Code(s): N19 - UNSPECIFIED KIDNEY FAILURE (6) Rhabdomyolysis Code(s): M62.82 - RHABDOMYOLYSIS Assessment/Plan 1. ? Syncope, altered mental status 2. Respiratory failure on mechanical ventilation 3. HTN 4. Hypercholesterolemia 5. SMITA and hyperkalemia with underlying CKD due to dehydration ?rhabdomyolosis 6. Hypernatremia due to above 7. Bipolar disorder, depression and anxiety 8. PAF currently in sinus rhythm [id number] score of either 2-3 9. Carotid artery disease 10. DKA PLAN: 1. Heparin drip for now. intermission coordinator anticoagulation can be decided as per patients progress. 2. HD per renal with monitor urine output, renal recovery and electrolytes 4. Currently written for Cardizem 30 tid but not given 5. Echocardiography was reviewed 6. AC mode vent per pulm/cc 7. Neuro recommended MRI when stable
[2019-02-19] MEDS: PANTOPRAZOLE SODIUM 40 MG VIAL IVPUSH SCH (11:44)
[2019-02-19] MEDS: CALCITRIOL 0.25 MCG CAPSULE (FP) PO SCH (11:44)
[2019-02-19] MEDS: lamoTRIgine 100 MG TABLET (FP) PO SCH (11:45)
[2019-02-19] MEDS: CLOTRIMAZOLE 1% CREAM 15 GM TUBE TP SCH ×2 (11:45→22:45)
[2019-02-19] MEDS: CALCIUM ACETATE 667 MG CAPSULE (FP) PO SCH ×3 (11:45→18:16)
[2019-02-19] MEDS: MUPIROCIN 2% TOPICAL OINTMENT FOR DECOLONIZATION NS SCH ×2 (11:45→22:50)
--- NOTE | 2019-02-19 12:53 | PN ---
Teaching Attending Note Name of Resident: Hollis Floyd ATTENDING PHYSICIAN STATEMENT I saw and evaluated the patient. I reviewed the resident's note and discussed the case with the resident. I agree with the resident's findings and plan as documented. SUBJECTIVE: Pt seen and examined in the ICU. Remains intubated, arousable on sedation. Currently on HD. Bloody output from OGT. OBJECTIVE: Vital Signs Period Temp Pulse Resp BP Sys/Verdugo Pulse Ox Last 24 Hr 97.8 F-100.6 F 66-86 12-28 85-126/54-76 93-96 Intake & Output 02/16/19 02/17/19 02/18/19 02/19/19 23:59 23:59 23:59 23:59 Intake Total 1450 2516.4 746.7 Output Total 400 1680 2750 700 Balance -400 -230 -233.6 46.7 Weight 136.078 kg 102.965 kg 101.333 kg Gen: intubated, sedated Heart: RRR Lung: decreased breath sounds at the bases Abd: soft, nontender Ext: no edema CBC, BMP 02/19/19 05:30 02/19/19 05:30 Active Medications Calcitriol (Rocaltrol -) 0.25 mcg PO DAILY [facility] Last Admin: 02/19/19 11:44 Dose: Not Given Calcium Acetate (Phoslo -) 667 mg PO TIDCM [facility] Last Admin: 02/19/19 12:26 Dose: Not Given Chlorhexidine Gluconate (Hibiclens For Decolonization -) 1 applic TP HS [facility] Last Admin: 02/18/19 21:59 Dose: 1 applic Clotrimazole (Lotrimin 1% Cream -) 1 applic TP BID [facility] Last Admin: 02/19/19 11:45 Dose: 1 applic Diltiazem HCl (Cardizem -) 30 mg PO TID [facility] Last Admin: 02/19/19 11:46 Dose: Not Given Propofol (Diprivan -) 1,000,000 mcg in 100 mls @ 3.096 mls/hr IVPB TITR [facility]; Protocol Last Titration: 02/18/19 16:00 Dose: 5 mcg/kg/min, 3.096 mls/hr Sodium Chloride (Normal Saline -) 250 mls @ 3,000 mls/hr IV PRN PRN PRN Reason: Hypotension during Dialysis Stop: 02/19/19 13:39 Sodium Chloride (1/2 Normal Saline) 1,000 mls @ 75 mls/hr IV ASDIR [facility] Last Admin: 02/18/19 23:00 Dose: 75 mls/hr Sodium Chloride (Normal Saline -) 250 mls @ 3,000 mls/hr IV PRN PRN PRN Reason: Hypotension during Dialysis Stop: 02/20/19 08:25 Insulin Aspart (Novolog Vial Sliding Scale -) 1 vial SQ ACHS [facility]; Protocol Last Admin: 02/19/19 11:37 Dose: 4 units Lamotrigine (Lamictal -) 100 mg PO DAILY [facility] Last Admin: 02/19/19 11:45 Dose: Not Given Mupirocin (Bactroban Ointment (For Decolonization) -) 1 applic NS BID [facility] Stop: 02/22/19 09:59 Last Admin: 02/19/19 11:45 Dose: 1 applic Pantoprazole Sodium (Protonix Iv) 40 mg IVPUSH BID [facility] Last Admin: 02/19/19 11:44 Dose: 40 mg ASSESSMENT AND PLAN: Altered Mental Status/Syncope Acute Respiratory Failure Acute on Chronic Renal Failure requiring HD Rhabdomyolysis Paroxysmal Atrial Fibrillation r/o GI Bleed HTN Hypercholesterolemia - HD per renal - IVF - monitor urine output, creatinine - monitor H/H - protonix - GI eval - rate control - holding anticoagulation for possible GI bleed - CT head - can likely extubate after HD - continue ICU monitoring critical care time spent in reviewing chart, evaluating patient and formulating plan 35 min
--- NOTE | 2019-02-19 13:26 | PN ---
Physical Exam: SUBJECTIVE: Patient seen and examined. Pt. more awake today. able to follow commands, still intubated. Pt. currently on HD. Pt. has 2.3L of dark ground emesis. OBJECTIVE: Vital Signs Period Temp Pulse Resp BP Sys/Verdugo Pulse Ox Last 24 Hr 97.8 F-100.6 F 66-86 12-30 85-127/52-76 93-96 GENERAL: The patient is awake, alert, in no acute distress. HEAD: Normal with no signs of trauma. EYES: PERRL, extraocular movements intact, sclera anicteric, conjunctiva clear. No ptosis. ENT: Ears normal, nares patent, moist mucous membranes. NECK: Trachea midline, full range of motion, supple. LUNGS: Mechanical ventilation HEART: Regular rate and rhythm, S1, S2 without murmur ABDOMEN: Soft, nontender, nondistended, normoactive bowel sounds, no guarding, no rebound EXTREMITIES: 2+ dorsal pedal pulses, warm, well-perfused, no edema. NEUROLOGICAL: Cranial nerves II through XII grossly intact. Gait not observed. PSYCH: Normal mood, normal affect. SKIN: Warm, dry, normal turgor Laboratory Results - last 24 hr 02/18/19 02/18/19 02/18/19 12:45 16:50 17:30 WBC RBC Hgb Hct MCV MCH MCHC RDW Plt Count MPV Absolute Neuts (auto) Neutrophils % Lymphocytes % Monocytes % Eosinophils % Basophils % Nucleated RBC % PTT (Actin FS) Anticoagulation Therapy Puncture Site ABG pH ABG pCO2 at Pt Temp ABG pO2 at Pt Temp ABG HCO3 ABG O2 Sat (Measured) ABG O2 Content ABG Base Excess Santi Test O2 Delivery Device Oxygen Flow Rate Vent Mode Vent Rate Mechanical Rate PEEP Pressure Support Vent Sodium 144 Potassium 3.6 Chloride 105 Carbon Dioxide 30 Anion Gap 9 BUN 87.6 H Creatinine 2.6 H Est GFR (CKD-EPI)AfAm 28.31 Est GFR (CKD-EPI)NonAf 24.42 POC Glucometer 200 Random Glucose 200 H Calcium 8.9 Total Bilirubin AST ALT Alkaline Phosphatase Total Protein Albumin Opiates Screen Negative Methadone Screen Negative Barbiturate Screen Negative Phencyclidine Screen Negative Ur Amphetamines Screen Negative MDMA (Ecstasy) Screen Negative Benzodiazepines Screen Positive A* Cocaine Screen Negative U Marijuana (THC) Screen Positive A* 11/02/19/19 02/19/19 21:54 05:30 05:30 WBC 13.1 H RBC 4.26 Hgb 13.3 Hct 41.1 MCV 96.5 H MCH 31.2 MCHC 32.3 RDW 14.0 Plt Count 155 D MPV 10.1 Absolute Neuts (auto) 11.6 H Neutrophils % 89.0 H Lymphocytes % 4.5 L D Monocytes % 5.8 Eosinophils % 0.6 D Basophils % 0.1 Nucleated RBC % 0 PTT (Actin FS) 24.0 L Anticoagulation Therapy Puncture Site ABG pH ABG pCO2 at Pt Temp ABG pO2 at Pt Temp ABG HCO3 ABG O2 Sat (Measured) ABG O2 Content ABG Base Excess Santi Test O2 Delivery Device Oxygen Flow Rate Vent Mode Vent Rate Mechanical Rate PEEP Pressure Support Vent Sodium Potassium Chloride Carbon Dioxide Anion Gap BUN Creatinine Est GFR (CKD-EPI)AfAm Est GFR (CKD-EPI)NonAf POC Glucometer 196 Random Glucose Calcium Total Bilirubin AST ALT Alkaline Phosphatase Total Protein Albumin Opiates Screen Methadone Screen Barbiturate Screen Phencyclidine Screen Ur Amphetamines Screen MDMA (Ecstasy) Screen Benzodiazepines Screen Cocaine Screen U Marijuana (THC) Screen 02/19/19 02/19/19 02/19/19 05:30 05:39 07:30 WBC RBC Hgb Hct MCV MCH MCHC RDW Plt Count MPV Absolute Neuts (auto) Neutrophils % Lymphocytes % Monocytes % Eosinophils % Basophils % Nucleated RBC % PTT (Actin FS) Anticoagulation Therapy No Result Required. Puncture Site Right radial ABG pH 7.51 H ABG pCO2 at Pt Temp 37.5 ABG pO2 at Pt Temp 168 H ABG HCO3 29.5 H ABG O2 Sat (Measured) 99.2 H ABG O2 Content 18.9 ABG Base Excess 6.4 H Santi Test Positive O2 Delivery Device Mech vent Oxygen Flow Rate 50% Vent Mode A/c Vent Rate 14 Mechanical Rate Yes PEEP 5.0 Pressure Support Vent 500 Sodium 151 H Potassium 4.4 Chloride 108 H Carbon Dioxide 32 Anion Gap 11 BUN 138.1 H* Creatinine 4.1 H Est GFR (CKD-EPI)AfAm 16.32 Est GFR (CKD-EPI)NonAf 14.08 POC Glucometer 218 Random Glucose 252 H Calcium 9.0 Total Bilirubin 1.4 H AST 43 H ALT 36 Alkaline Phosphatase 57 Total Protein 5.0 L Albumin 2.0 L Opiates Screen Methadone Screen Barbiturate Screen Phencyclidine Screen Ur Amphetamines Screen MDMA (Ecstasy) Screen Benzodiazepines Screen Cocaine Screen U Marijuana (THC) Screen 02/19/19 11:35 WBC RBC Hgb Hct MCV MCH MCHC RDW Plt Count MPV Absolute Neuts (auto) Neutrophils % Lymphocytes % Monocytes % Eosinophils % Basophils % Nucleated RBC % PTT (Actin FS) Anticoagulation Therapy Puncture Site ABG pH ABG pCO2 at Pt Temp ABG pO2 at Pt Temp ABG HCO3 ABG O2 Sat (Measured) ABG O2 Content ABG Base Excess Santi Test O2 Delivery Device Oxygen Flow Rate Vent Mode Vent Rate Mechanical Rate PEEP Pressure Support Vent Sodium Potassium Chloride Carbon Dioxide Anion Gap BUN Creatinine Est GFR (CKD-EPI)AfAm Est GFR (CKD-EPI)NonAf POC Glucometer 226 Random Glucose Calcium Total Bilirubin AST ALT Alkaline Phosphatase Total Protein Albumin Opiates Screen Methadone Screen Barbiturate Screen Phencyclidine Screen Ur Amphetamines Screen MDMA (Ecstasy) Screen Benzodiazepines Screen Cocaine Screen U Marijuana (THC) Screen Active Medications Home Medications Medication Instructions Recorded Allopurinol [Zyloprim -] 200 mg DAILY 02/17/19 Amlodipine Besylate 10 mg PO DAILY 02/17/19 Diazepam [Valium] 10 mg PO TID 02/17/19 Insulin Aspart [Novolog] 2 units TID 02/17/19 Insulin Glargine,Hum.rec.anlog 95 unit HS 02/17/19 [Toujeo Solostar] Lamotrigine 100 mg DAILY 02/17/19 Losartan/Hydrochlorothiazide 1 tablet DAILY 02/17/19 [Losartan-Hctz 100-12.5 mg Tab] Quetiapine Fumarate [Seroquel -] 200 mg PO HS 02/17/19 Current Medications Calcitriol (Rocaltrol -) 0.25 mcg PO DAILY [facility] Last Admin: 02/19/19 11:44 Dose: Not Given Calcium Acetate (Phoslo -) 667 mg PO TIDCM [facility] Last Admin: 02/19/19 12:26 Dose: Not Given Chlorhexidine Gluconate (Hibiclens For Decolonization -) 1 applic TP HS [facility] Last Admin: 02/18/19 21:59 Dose: 1 applic Clotrimazole (Lotrimin 1% Cream -) 1 applic TP BID [facility] Last Admin: 02/19/19 11:45 Dose: 1 applic Diltiazem HCl (Cardizem -) 30 mg PO TID [facility] Last Admin: 02/19/19 11:46 Dose: Not Given Propofol (Diprivan -) 1,000,000 mcg in 100 mls @ 3.096 mls/hr IVPB TITR [facility]; Protocol Last Titration: 02/18/19 16:00 Dose: 5 mcg/kg/min, 3.096 mls/hr Sodium Chloride (Normal Saline -) 250 mls @ 3,000 mls/hr IV PRN PRN PRN Reason: Hypotension during Dialysis Stop: 02/19/19 13:39 Sodium Chloride (1/2 Normal Saline) 1,000 mls @ 75 mls/hr IV ASDIR [facility] Last Admin: 02/18/19 23:00 Dose: 75 mls/hr Sodium Chloride (Normal Saline -) 250 mls @ 3,000 mls/hr IV PRN PRN PRN Reason: Hypotension during Dialysis Stop: 02/20/19 08:25 Insulin Aspart (Novolog Vial Sliding Scale -) 1 vial SQ ACHS [facility]; Protocol Last Admin: 02/19/19 11:37 Dose: 4 units Lamotrigine (Lamictal -) 100 mg PO DAILY [facility] Last Admin: 02/19/19 11:45 Dose: Not Given Mupirocin (Bactroban Ointment (For Decolonization) -) 1 applic NS BID [facility] Stop: 02/22/19 09:59 Last Admin: 02/19/19 11:45 Dose: 1 applic Pantoprazole Sodium (Protonix Iv) 40 mg IVPUSH BID [facility] Last Admin: 02/19/19 11:44 Dose: 40 mg ASSESSMENT/PLAN: Pt. is a 68 y.o. M w. PMHx. of CKD, DM, HTN, HLD, obesity, bipolar disorder, depression, and anxiety. He was brought in by EMS after being found on the ground in his apartment for an unknown period of time. According to the brother , the patient is normally fully independent and able to complete tasks. The brother reports he last saw the patient about 3 months ago. #Neuro - Pt. found to be unresponsive this morning, ABG showed pH 7.12 with CO2 73.6, intubated, repeat ABG showed pH 7.30, CO2 46.1 - restart sedation because Pt. will remain intubated until after EGD - Continue home med Lamotrigine 100mg PO - Head CT: No ischemia, fractures - NIH 14 on admission - Carotid Doppler: Plaque in RCC bifurcation, no HDS stenosis - Neuro recs: MRI head #GI - 2.3L coffee ground emesis noticed upon suctioning - f/u FOBT ordered - CTAP: No obstruction, rectal impaction with hiatal hernia noticed - GI consult placed, follow up for EGD - started Protonix BID #CVS - AFib with RVR - Vascular consult for ulcers: no need for surgical management at this time, rotate weight bearing areas - Echo: EF 60-65, mild LVH, normal LVSF, small pericardial effusion (<1cm) - Cardio recs: CHADVASC score 2-3, start heparin drip - Heparin D/c-ed - cardizem held because of hypotension #Nephro - BUN/Cr: 205/5--> 87.6/2.6 - L Femoral Trialysis catheter placed, pt undergoing HD - UTox: Benzo and Marijuana positive - Chou in place, monitor I/O #Endo - Came in with Glucose 329, Beta Hydroxybutyrate 5.5 -> 1.0, s/p insulin drip-- > now controlled on ISS - Glucose 288 and Anion gap 6 this morning - HbA1c 6.3 #ID - WBC 11.7-->13.1--> 15.8 - low suspicion for infectious process at this time as Pt. has been afebrile, and has 1% bands - will order BCx. - will start on empiric Ceftriaxone #FEN - 0.45 N/S @ 75 - monitor electrolytes and replete as needed ( given 30meq IV today) - NPO except for meds #DVT PE -SCDs, -Hold Hep Gtt as Pt. has dark colored emesis #Dispo - Will continue to monitor - Discussed with sister Samia, consent for HD taken from brother in person Visit type - Emergency Visit Emergency Visit: Yes ED Registration Date: 02/16/19 Care time: The patient presented to the Emergency Department on the above date and was hospitalized for further evaluation of their emergent condition. - New Patient This patient is new to me today: No - Critical Care Critical Care patient: Yes Total Critical Care Time (in minutes): 45 Critical Care Statement: The care of this patient involved high complexity decision making to prevent further life threatening deterioration of the patient 's condition and/or to evaluate & treat vital organ system(s) failure or risk of failure. ATTENDING PHYSICIAN STATEMENT I saw and evaluated the patient. I reviewed the resident's note and discussed the case with the resident. I agree with the resident's findings and plan as documented. SUBJECTIVE: OBJECTIVE: ASSESSMENT AND PLAN:
--- NOTE | 2019-02-19 13:43 | PN ---
Progress Note, Physician History of Present Illness: Pt seen and examined at bedside. He remains intubated but is awake. He is tolerating HD. - Current Medication List Current Medications: Active Medications Calcitriol (Rocaltrol -) 0.25 mcg PO DAILY [facility] Last Admin: 02/19/19 11:44 Dose: Not Given Calcium Acetate (Phoslo -) 667 mg PO TIDCM [facility] Last Admin: 02/19/19 12:26 Dose: Not Given Chlorhexidine Gluconate (Hibiclens For Decolonization -) 1 applic TP HS [facility] Last Admin: 02/18/19 21:59 Dose: 1 applic Clotrimazole (Lotrimin 1% Cream -) 1 applic TP BID [facility] Last Admin: 02/19/19 11:45 Dose: 1 applic Diltiazem HCl (Cardizem -) 30 mg PO TID [facility] Last Admin: 02/19/19 11:46 Dose: Not Given Propofol (Diprivan -) 1,000,000 mcg in 100 mls @ 3.096 mls/hr IVPB TITR [facility]; Protocol Last Titration: 02/18/19 16:00 Dose: 5 mcg/kg/min, 3.096 mls/hr Sodium Chloride (Normal Saline -) 250 mls @ 3,000 mls/hr IV PRN PRN PRN Reason: Hypotension during Dialysis Stop: 02/19/19 13:39 Sodium Chloride (1/2 Normal Saline) 1,000 mls @ 75 mls/hr IV ASDIR [facility] Last Admin: 02/18/19 23:00 Dose: 75 mls/hr Sodium Chloride (Normal Saline -) 250 mls @ 3,000 mls/hr IV PRN PRN PRN Reason: Hypotension during Dialysis Stop: 02/20/19 08:25 Insulin Aspart (Novolog Vial Sliding Scale -) 1 vial SQ ACHS [facility]; Protocol Last Admin: 02/19/19 11:37 Dose: 4 units Lamotrigine (Lamictal -) 100 mg PO DAILY [facility] Last Admin: 02/19/19 11:45 Dose: Not Given Mupirocin (Bactroban Ointment (For Decolonization) -) 1 applic NS BID [facility] Stop: 02/22/19 09:59 Last Admin: 02/19/19 11:45 Dose: 1 applic Pantoprazole Sodium (Protonix Iv) 40 mg IVPUSH BID [facility] Last Admin: 02/19/19 11:44 Dose: 40 mg - Objective Vital Signs: Vital Signs Temperature 99.4 F 02/19/19 10:25 Pulse Rate 76 02/19/19 13:00 Respiratory Rate 30 H 02/19/19 13:00 Blood Pressure 104/52 L 02/19/19 13:00 O2 Sat by Pulse Oximetry (%) 95 02/19/19 11:59 Constitutional: Yes: Calm Eyes: Yes: Conjunctiva Clear HENT: Yes: Atraumatic Cardiovascular: Yes: S1, S2 Respiratory: Yes: Intubated, Mechanically Ventilated Gastrointestinal: Yes: Soft Genitourinary: Yes: Chou Present Musculoskeletal: Yes: WNL Edema: No Integumentary: Yes: WNL Neurological: Yes: Other (awake) Labs: CBC, BMP 02/19/19 05:30 02/19/19 05:30 INR, PTT INR 1.54 (0.83-1.09) H 02/17/19 05:13 Assessment/Plan Current Medications Generic Name Dose Route Start Last Admin Trade Name Sidneyq PRN Reason Stop Dose Admin Calcitriol 0.25 mcg 02/17/19 10:00 02/19/19 11:44 Rocaltrol - PO Not Given DAILY [facility] Calcium Acetate 667 mg 02/17/19 08:00 02/19/19 12:26 Phoslo - PO Not Given TIDCM [facility] Chlorhexidine Gluconate 1 applic 02/17/19 22:00 02/18/19 21:59 Hibiclens For Decolonization - TP 1 applic HS [facility] Administration Clotrimazole 1 applic 02/17/19 10:00 02/19/19 11:45 Lotrimin 1% Cream - TP 1 applic BID [facility] Administration Diltiazem HCl 30 mg 02/17/19 14:00 02/19/19 11:46 Cardizem - PO Not Given TID [facility] Propofol 1,000,000 mcg in 100 mls @ 3.096 mls/hr 02/18/19 08:30 02/18/19 16: 00 Diprivan - IVPB 5 mcg/kg/min TITR [facility] 3.096 mls/hr Titration Protocol 5 MCG/KG/MIN Sodium Chloride 250 mls @ 3,000 mls/hr 02/18/19 13:39 Normal Saline - IV 02/19/19 13:39 PRN PRN Hypotension during Dialysis Sodium Chloride 1,000 mls @ 75 mls/hr 02/18/19 13:40 02/18/19 23:00 1/2 Normal Saline IV 75 mls/hr ASDIR [facility] Administration Sodium Chloride 250 mls @ 3,000 mls/hr 02/19/19 08:25 Normal Saline - IV 02/20/19 08:25 PRN PRN Hypotension during Dialysis Insulin Aspart 1 vial 02/17/19 22:00 02/19/19 11:37 Novolog Vial Sliding Scale - SQ 4 units ACHS [facility] Administration Protocol Lamotrigine 100 mg 02/18/19 10:00 02/19/19 11:45 Lamictal - PO Not Given DAILY [facility] Mupirocin 1 applic 02/17/19 10:00 02/19/19 11:45 Bactroban Ointment (For Decolonization) - NS 02/22/19 09:59 1 applic BID [facility] Administration Pantoprazole Sodium 40 mg 02/19/19 11:30 02/19/19 11:44 Protonix Iv IVPUSH 40 mg BID [facility] Administration Impression 1. SMITA 2. rhabdo 3. dka 4. altered mental status 5. hyperkalemia 6. resp failure Plan - HD today - repeat labs tomorrow - monitor urine output - pt on weaning trial - monitor bp
[2019-02-19 14:13] LABS: BASO % 0.1 % (0-2.0); EOS % 0.4 % (0-4.5); HEMATOCRIT 45.5 % (35.4-49); HEMOGLOBIN 14.7 GM/dL (11.7-16.9); MCH 30.8 pg (25.7-33.7); MCHC 32.3 g/dl (32.0-35.9); MEAN CELL VOLUME 95.4 fl (80-96); MEAN PLT VOLUME 9.7 fl (7.5-11.1); MONO % 3.2 % (3.8-10.2); NEUT % 93.3 % (42.8-82.8); PLATELET COUNT 160 K/MM3 (134-434); RBC 4.77 M/mm3 (4.00-5.60); RDW 14.3 % (11.9-15.9); WHITE BLOOD COUNT 15.8 K/mm3 (4.0-10.0)
[2019-02-19 14:35] LABS: ANISOCYTOSIS 0; MACROCYTOSIS 0; PLATELET ESTIMATE NORMAL
[2019-02-19 14:45] LABS: ALBUMIN 2.4 g/dl (3.4-5.0); BILIRUBIN,TOTAL 1.5 mg/dL (0.2-1); BLOOD UREA NITROGEN 55.9 mg/dL (7-18); CALCIUM 8.4 mg/dL (8.5-10.1); POTASSIUM 3.3 mmol/L (3.5-5.1); TOT PROT 6.3 g/dl (6.4-8.2)
--- NOTE | 2019-02-19 15:17 | CON.GI ---
Consult Consult Specialty:: Gastroenterology Referred by:: Dr. Fabián Saxena Reason for Consultation:: Coffee ground emesis - History of Present Illness History of Present Illness: 68 yo male h/o DM, CKD, HTN, obesity, bipolar disorder, depression/anxiety presents after being found down in his apartment requiring intubation with DKA and SMITA asked to evaluate for coffee ground emesis. Pt with altered mentation on admission requiring intubation yesterday. Pt found to have large amount of coffee ground emesis on suctioning therefore GI consulted. Currently pt on HD, approximately 1L coffee grounds material in cannister. Pt remains intubated/sedated. No bms yet today and no melena per nursing staff. Previously on heparin gtt for PAF, dc'd yesterday. 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 Home Medications - Allergies Allergies/Adverse Reactions: Allergies Allergy/AdvReac Type Severity Reaction Status Date / Time No Allergy Information Allergy Verified 02/16/19 19:16 Available - Home Medications Home Medications: Ambulatory Orders Allopurinol [Zyloprim -] 200 mg DAILY 02/17/19 Amlodipine Besylate 10 mg PO DAILY 02/17/19 Diazepam [Valium] 10 mg PO TID 02/17/19 Insulin Aspart [Novolog] 2 units TID 02/17/19 Insulin Glargine,Hum.rec.anlog [Toujeo Solostar] 95 unit HS 02/17/19 Lamotrigine 100 mg DAILY 02/17/19 Losartan/Hydrochlorothiazide [Losartan-Hctz 100-12.5 mg Tab] 1 tablet DAILY Quetiapine Fumarate [Seroquel -] 200 mg PO HS 02/17/19 Review of Systems Unable to obtain ROS, reason: Pt intubated/sedated Physical Exam-GI Vital Signs: Vital Signs Temperature 99.4 F 02/19/19 10:25 Pulse Rate 77 02/19/19 14:05 Respiratory Rate 16 02/19/19 14:05 Blood Pressure 113/70 02/19/19 14:05 O2 Sat by Pulse Oximetry (%) 95 02/19/19 11:59 Constitutional: Yes: No Distress, Calm, Other (Intubated) Cardiovascular: Yes: WNL, Regular Rate and Rhythm Respiratory: Yes: Mechanically Ventilated ...Palpate: Yes: Other (Abd soft, no tenderness elicited, non distended Rectal exam deferred as unable to maneuver while on HD (groin catheter)) Labs: CBC, BMP 02/19/19 13:45 02/19/19 13:45 INR, PTT INR 1.54 (0.83-1.09) H 02/17/19 05:13 Problem List - Problems (1) Coffee ground emesis Assessment/Plan: 68 yo male h/o DM, CKD, HTN, obesity, bipolar disorder, depression/anxiety presents after being found down in his apartment requiring intubation with DKA and SMITA requiring hemodialysis asked to evaluate for coffee ground emesis in setting of anticoagulation. Hb stable. No melena. Unable to exclude underlying esophagitis, gastritis, PUD, AVMs or other underlying lesion. -Recommend continue to closely monitor Hb and for evidence of bleeding -Would avoid continuous NG suction due to likely precipitating further mucosal trauma, can change to low intermittent suction for now -Keep npo -PPI gtt -Repeat INR (elevated on 02/17) -Continue to hold anticoagulation if no contraindication -Avoid nonessential NSAIDs -Infectious workup per primary team due to rising leucocytosis/low grade fever -While pt may require EGD to further evaluate and prior to resuming a/c currently there is no emergent indication in setting of stable Hb/hemodynamics. Once further optimized will determine timing of endoscopy accordingly. -If further ongoing bleeding with drop in Hb or hemodynamic instability please notify GI for possible more urgent intervention Discussed with primary team Code(s): K92.0 - HEMATEMESIS
--- NOTE | 2019-02-19 15:54 | PN ---
Physical Exam: SUBJECTIVE: Patient seen and examined in the morning. No acute events overnight , patient is sedated. OBJECTIVE: Vital Signs Period Temp Pulse Resp BP Sys/Verdugo Pulse Ox Last 24 Hr 97.8 F-100.6 F 67-86 12-30 87-127/52-76 93-96 GENERAL: The patient is not alert, unarousable. EYES: PERRL, conjunctiva clear. LUNGS: Ventilator sounds predominate. Equal on both sides. HEART: Regular rate and rhythm, S1, S2. ABDOMEN: Soft, normoactive bowel sounds. Patient has NGT in place with coffee ground liquid in tube. EXTREMITIES: 2+ pulses, warm, well-perfused, no edema. Laboratory Results - last 24 hr 02/18/19 02/18/19 02/18/19 16:50 17:30 21:54 WBC RBC Hgb Hct MCV MCH MCHC RDW Plt Count MPV Absolute Neuts (auto) Neutrophils % Neutrophils % (Manual) Band Neutrophils % Lymphocytes % Lymphocytes % (Manual) Monocytes % Monocytes % (Manual) Eosinophils % Eosinophils % (Manual) Basophils % Basophils % (Manual) Myelocytes % (Man) Promyelocytes % (Man) Blast Cells % (Manual) Nucleated RBC % Metamyelocytes Hypochromia Platelet Estimate Polychromasia Poikilocytosis Anisocytosis Microcytosis Macrocytosis PTT (Actin FS) Anticoagulation Therapy Puncture Site ABG pH ABG pCO2 at Pt Temp ABG pO2 at Pt Temp ABG HCO3 ABG O2 Sat (Measured) ABG O2 Content ABG Base Excess Santi Test O2 Delivery Device Oxygen Flow Rate Vent Mode Vent Rate Mechanical Rate PEEP Pressure Support Vent Sodium 144 Potassium 3.6 Chloride 105 Carbon Dioxide 30 Anion Gap 9 BUN 87.6 H Creatinine 2.6 H Est GFR (CKD-EPI)AfAm 28.31 Est GFR (CKD-EPI)NonAf 24.42 POC Glucometer 200 196 Random Glucose 200 H Calcium 8.9 Total Bilirubin AST ALT Alkaline Phosphatase Total Protein Albumin 02/19/19 02/19/19 02/19/19 05:30 05:30 05:30 WBC 13.1 H RBC 4.26 Hgb 13.3 Hct 41.1 MCV 96.5 H MCH 31.2 MCHC 32.3 RDW 14.0 Plt Count 155 D MPV 10.1 Absolute Neuts (auto) 11.6 H Neutrophils % 89.0 H Neutrophils % (Manual) Band Neutrophils % Lymphocytes % 4.5 L D Lymphocytes % (Manual) Monocytes % 5.8 Monocytes % (Manual) Eosinophils % 0.6 D Eosinophils % (Manual) Basophils % 0.1 Basophils % (Manual) Myelocytes % (Man) Promyelocytes % (Man) Blast Cells % (Manual) Nucleated RBC % 0 Metamyelocytes Hypochromia Platelet Estimate Polychromasia Poikilocytosis Anisocytosis Microcytosis Macrocytosis PTT (Actin FS) 24.0 L Anticoagulation Therapy Puncture Site ABG pH ABG pCO2 at Pt Temp ABG pO2 at Pt Temp ABG HCO3 ABG O2 Sat (Measured) ABG O2 Content ABG Base Excess Santi Test O2 Delivery Device Oxygen Flow Rate Vent Mode Vent Rate Mechanical Rate PEEP Pressure Support Vent Sodium 151 H Potassium 4.4 Chloride 108 H Carbon Dioxide 32 Anion Gap 11 BUN 138.1 H* Creatinine 4.1 H Est GFR (CKD-EPI)AfAm 16.32 Est GFR (CKD-EPI)NonAf 14.08 POC Glucometer Random Glucose 252 H Calcium 9.0 Total Bilirubin 1.4 H AST 43 H ALT 36 Alkaline Phosphatase 57 Total Protein 5.0 L Albumin 2.0 L 02/19/19 02/19/19 02/19/19 05:39 07:30 11:35 WBC RBC Hgb Hct MCV MCH MCHC RDW Plt Count MPV Absolute Neuts (auto) Neutrophils % Neutrophils % (Manual) Band Neutrophils % Lymphocytes % Lymphocytes % (Manual) Monocytes % Monocytes % (Manual) Eosinophils % Eosinophils % (Manual) Basophils % Basophils % (Manual) Myelocytes % (Man) Promyelocytes % (Man) Blast Cells % (Manual) Nucleated RBC % Metamyelocytes Hypochromia Platelet Estimate Polychromasia Poikilocytosis Anisocytosis Microcytosis Macrocytosis PTT (Actin FS) Anticoagulation Therapy No Result Required. Puncture Site Right radial ABG pH 7.51 H ABG pCO2 at Pt Temp 37.5 ABG pO2 at Pt Temp 168 H ABG HCO3 29.5 H ABG O2 Sat (Measured) 99.2 H ABG O2 Content 18.9 ABG Base Excess 6.4 H Santi Test Positive O2 Delivery Device Mech vent Oxygen Flow Rate 50% Vent Mode A/c Vent Rate 14 Mechanical Rate Yes PEEP 5.0 Pressure Support Vent 500 Sodium Potassium Chloride Carbon Dioxide Anion Gap BUN Creatinine Est GFR (CKD-EPI)AfAm Est GFR (CKD-EPI)NonAf POC Glucometer 218 226 Random Glucose Calcium Total Bilirubin AST ALT Alkaline Phosphatase Total Protein Albumin 02/19/19 02/19/19 13:45 13:45 WBC 15.8 H RBC 4.77 Hgb 14.7 Hct 45.5 MCV 95.4 MCH 30.8 MCHC 32.3 RDW 14.3 Plt Count 160 MPV 9.7 Absolute Neuts (auto) 14.7 H Neutrophils % 93.3 H Neutrophils % (Manual) 87.8 H Band Neutrophils % 1.0 Lymphocytes % 3.0 L D Lymphocytes % (Manual) 3.1 L Monocytes % 3.2 L Monocytes % (Manual) 6 Eosinophils % 0.4 Eosinophils % (Manual) 0.0 Basophils % 0.1 Basophils % (Manual) 0.0 Myelocytes % (Man) 0 Promyelocytes % (Man) 0 Blast Cells % (Manual) 0 Nucleated RBC % 0 Metamyelocytes 1 D Hypochromia 0 Platelet Estimate Normal Polychromasia 0 Poikilocytosis 0 Anisocytosis 0 Microcytosis 0 Macrocytosis 0 PTT (Actin FS) Anticoagulation Therapy Puncture Site ABG pH ABG pCO2 at Pt Temp ABG pO2 at Pt Temp ABG HCO3 ABG O2 Sat (Measured) ABG O2 Content ABG Base Excess Santi Test O2 Delivery Device Oxygen Flow Rate Vent Mode Vent Rate Mechanical Rate PEEP Pressure Support Vent Sodium 143 Potassium 3.3 L Chloride 103 Carbon Dioxide 33 H Anion Gap 7 L BUN 55.9 H Creatinine 2.0 H Est GFR (CKD-EPI)AfAm 38.87 Est GFR (CKD-EPI)NonAf 33.54 POC Glucometer Random Glucose 192 H Calcium 8.4 L Total Bilirubin 1.5 H AST 48 H ALT 41 Alkaline Phosphatase 73 Total Protein 6.3 L Albumin 2.4 L Active Medications Generic Name Dose Route Start Last Admin Trade Name Freq PRN Reason Stop Dose Admin Calcitriol 0.25 mcg 02/17/19 10:00 02/19/19 11:44 Rocaltrol - PO Not Given DAILY [facility]ES Calcium Acetate 667 mg 02/17/19 08:00 02/19/19 12:26 Phoslo - PO Not Given TIDCM [facility] Chlorhexidine Gluconate 1 applic 02/17/19 22:00 02/18/19 21:59 Hibiclens For Decolonization - TP 1 applic HS [facility] Administration Clotrimazole 1 applic 02/17/19 10:00 02/19/19 11:45 Lotrimin 1% Cream - TP 1 applic BID [facility] Administration Diltiazem HCl 30 mg 02/17/19 14:00 02/19/19 11:46 Cardizem - PO Not Given TID [facility] Propofol 1,000,000 mcg in 100 mls @ 3.096 mls/hr 02/18/19 08:30 02/18/19 16: 00 Diprivan - IVPB 5 mcg/kg/min TITR [facility] 3.096 mls/hr Titration Protocol 5 MCG/KG/MIN Sodium Chloride 250 mls @ 3,000 mls/hr 02/18/19 13:39 Normal Saline - IV 02/19/19 13:39 PRN PRN Hypotension during Dialysis Sodium Chloride 1,000 mls @ 75 mls/hr 02/18/19 13:40 02/18/19 23:00 1/2 Normal Saline IV 75 mls/hr ASDIR TAVARES Administration Sodium Chloride 250 mls @ 3,000 mls/hr 02/19/19 08:25 Normal Saline - IV 02/20/19 08:25 PRN PRN Hypotension during Dialysis Ceftriaxone Sodium 1 gm/ 50 mls @ 200 mls/hr 02/19/19 15:00 Dextrose IVPB DAILY [facility] Protocol Potassium Chloride 10 meq in 100 mls @ 100 mls/hr 02/19/19 15:15 Potassium Chloride 10 Meq Premix Ivpb - IVPB 02/19/19 18:14 Q60M [facility] Insulin Aspart 1 vial 02/17/19 22:00 02/19/19 11:37 Novolog Vial Sliding Scale - SQ 4 units ACHS [facility]ES Administration Protocol Lamotrigine 100 mg 02/18/19 10:00 02/19/19 11:45 Lamictal - PO Not Given DAILY [facility] Mupirocin 1 applic 02/17/19 10:00 02/19/19 11:45 Bactroban Ointment (For Decolonization) - NS 02/22/19 09:59 1 applic BID [facility]ES Administration Pantoprazole Sodium 40 mg 02/19/19 11:30 02/19/19 11:44 Protonix Iv IVPUSH 40 mg BID [facility]ES Administration ASSESSMENT/PLAN: 68 M with PMH of DM, HTN, HLD, CKD, obesity, bipolar disorder, depression, and anxiety, who was brought to ED after being found down on the floor by brother with AMS. 1) AMS -Likely a toxic metabolic encephalopathy from uremia or electrolyte abnormalities or DKA -Patient intubated -F/U MRI -CT head negative -F/U repeat CT Head -/2 NS @75 ml/hr -Insulin drip held -Sliding scale insulin -Endocrinology consulted, appreciate recs -Neurology consulted, appreciate recs -Possible extubation tomorrow after HD tonight. 2) SMITA -Hemodialysis today -Strict I/O -Rhabdomyolysis observed, CPK trending down. -Renal U/S unremarkable -Nephrology consulted, appreciate recs 3)New onset Afib -Replete Ca aggressively -Cardizem PO 30 mg TID PRN -Heparin drip held -Cardiology consulted, appreciate recs -Echo shows normal EF -Normal sinus now 4)Upper GI Bleed -Protonix 40 mg IV BID -EGD -GI Consuted appreciate recs 5) Chest X-Ray shows possible infiltrate -Ceftriaxone 1 gram daily 6)History of Bipolar disorder -Continue home meds 7) Wounds on lower chest, upper abdomen -Wound Care consulted, appreciate recs -pain management PRN Dispo: ICU monitoring F: /2 NS @ 150 ml/hr E: Trend CMP. Replete as needed N: NPO DVT: SCDS Visit type - Emergency Visit Emergency Visit: Yes ED Registration Date: 02/16/19 Care time: The patient presented to the Emergency Department on the above date and was hospitalized for further evaluation of their emergent condition. - New Patient This patient is new to me today: No - Critical Care Critical Care patient: Yes Total Critical Care Time (in minutes): 35 Critical Care Statement: The care of this patient involved high complexity decision making to prevent further life threatening deterioration of the patient 's condition and/or to evaluate & treat vital organ system(s) failure or risk of failure. ATTENDING PHYSICIAN STATEMENT I saw and evaluated the patient. I reviewed the resident's note and discussed the case with the resident. I agree with the resident's findings and plan as documented. SUBJECTIVE: OBJECTIVE: ASSESSMENT AND PLAN:
[2019-02-19] MEDS: SODIUM CHLORIDE 0.45% 1,000 ML IV SCH (16:39)
[2019-02-19] MEDS: KCL 10 MEQ IVPB 10 MEQ/100 ML INFUS.BAG IVPB SCH ×3 (16:40→18:17)
[2019-02-19] MEDS ORDERED: DEXTROSE 5%-WATER - 50 ML IVPB ONE (16:53)
[2019-02-19] MEDS ORDERED: cefTRIAXone SODIUM 1 GM VIAL ONE (16:53)
[2019-02-19] MEDS ORDERED: PROPOFOL 1,000,000 MCG/100 ML VIAL ONE (16:54)
[2019-02-19] MEDS: CEFTRIAXONE 1 GM in DEXTROSE 5%-WATER - 50 ML IVPB SCH (17:01)
--- NOTE | 2019-02-19 18:14 | PN ---
Teaching Attending Note Name of Resident: Eb Harding ATTENDING PHYSICIAN STATEMENT I saw and evaluated the patient. I reviewed the resident's note and discussed the case with the resident. I agree with the resident's findings and plan as documented. SUBJECTIVE: unable to participate in medical interview. Intubated, mechanically ventilated, sedated. Developed coffee ground material via NG tube overnight. OBJECTIVE: Fever - Tmax 100.6. Intubated/Sedated. Last Vital Signs Temp Pulse Resp BP Pulse Ox 99.8 F H 78 19 114/68 95 02/19/19 16:00 02/19/19 16:00 02/19/19 16:16 02/19/19 16:00 02/19/19 11:59 HEENT - ET tube in situ. NG tube with black/coffee ground material. Heart - S1, S2, RRR Lungs - good air entry bilaterally. Mechanically ventilated. Abdomen - Soft. Bowel Sounds normal. R sided abdominal wall rug-burn like wound , without surrounding cellulitis. Extremities - mild edema. rug burn wound to inner aspect L knee with eschar, no surrounding erythema. Neuro - WILLARD. Sedated. Laboratory Results - last 24 hr 02/17/19 02/18/19 02/18/19 00:36 16:50 21:54 WBC RBC Hgb Hct MCV MCH MCHC RDW Plt Count MPV Absolute Neuts (auto) Neutrophils % Neutrophils % (Manual) Band Neutrophils % Lymphocytes % Lymphocytes % (Manual) Monocytes % Monocytes % (Manual) Eosinophils % Eosinophils % (Manual) Basophils % Basophils % (Manual) Myelocytes % (Man) Promyelocytes % (Man) Blast Cells % (Manual) Nucleated RBC % Metamyelocytes Hypochromia Platelet Estimate Polychromasia Poikilocytosis Anisocytosis Microcytosis Macrocytosis PTT (Actin FS) Anticoagulation Therapy Puncture Site ABG pH ABG pCO2 at Pt Temp ABG pO2 at Pt Temp ABG HCO3 ABG O2 Sat (Measured) ABG O2 Content ABG Base Excess Santi Test O2 Delivery Device Oxygen Flow Rate Vent Mode Vent Rate Mechanical Rate PEEP Pressure Support Vent Sodium 144 Potassium 3.6 Chloride 105 Carbon Dioxide 30 Anion Gap 9 BUN 87.6 H Creatinine 2.6 H Est GFR (CKD-EPI)AfAm 28.31 Est GFR (CKD-EPI)NonAf 24.42 POC Glucometer 196 Random Glucose 200 H Calcium 8.9 Total Bilirubin AST ALT Alkaline Phosphatase Total Protein Albumin Urine Myoglobin 44 H 02/19/19 02/19/19 02/19/19 05:30 05:30 05:30 WBC 13.1 H RBC 4.26 Hgb 13.3 Hct 41.1 MCV 96.5 H MCH 31.2 MCHC 32.3 RDW 14.0 Plt Count 155 D MPV 10.1 Absolute Neuts (auto) 11.6 H Neutrophils % 89.0 H Neutrophils % (Manual) Band Neutrophils % Lymphocytes % 4.5 L D Lymphocytes % (Manual) Monocytes % 5.8 Monocytes % (Manual) Eosinophils % 0.6 D Eosinophils % (Manual) Basophils % 0.1 Basophils % (Manual) Myelocytes % (Man) Promyelocytes % (Man) Blast Cells % (Manual) Nucleated RBC % 0 Metamyelocytes Hypochromia Platelet Estimate Polychromasia Poikilocytosis Anisocytosis Microcytosis Macrocytosis PTT (Actin FS) 24.0 L Anticoagulation Therapy Puncture Site ABG pH ABG pCO2 at Pt Temp ABG pO2 at Pt Temp ABG HCO3 ABG O2 Sat (Measured) ABG O2 Content ABG Base Excess Santi Test O2 Delivery Device Oxygen Flow Rate Vent Mode Vent Rate Mechanical Rate PEEP Pressure Support Vent Sodium 151 H Potassium 4.4 Chloride 108 H Carbon Dioxide 32 Anion Gap 11 BUN 138.1 H* Creatinine 4.1 H Est GFR (CKD-EPI)AfAm 16.32 Est GFR (CKD-EPI)NonAf 14.08 POC Glucometer Random Glucose 252 H Calcium 9.0 Total Bilirubin 1.4 H AST 43 H ALT 36 Alkaline Phosphatase 57 Total Protein 5.0 L Albumin 2.0 L Urine Myoglobin 02/19/19 02/19/19 02/19/19 05:39 07:30 11:35 WBC RBC Hgb Hct MCV MCH MCHC RDW Plt Count MPV Absolute Neuts (auto) Neutrophils % Neutrophils % (Manual) Band Neutrophils % Lymphocytes % Lymphocytes % (Manual) Monocytes % Monocytes % (Manual) Eosinophils % Eosinophils % (Manual) Basophils % Basophils % (Manual) Myelocytes % (Man) Promyelocytes % (Man) Blast Cells % (Manual) Nucleated RBC % Metamyelocytes Hypochromia Platelet Estimate Polychromasia Poikilocytosis Anisocytosis Microcytosis Macrocytosis PTT (Actin FS) Anticoagulation Therapy No Result Required. Puncture Site Right radial ABG pH 7.51 H ABG pCO2 at Pt Temp 37.5 ABG pO2 at Pt Temp 168 H ABG HCO3 29.5 H ABG O2 Sat (Measured) 99.2 H ABG O2 Content 18.9 ABG Base Excess 6.4 H Santi Test Positive O2 Delivery Device Mech vent Oxygen Flow Rate 50% Vent Mode A/c Vent Rate 14 Mechanical Rate Yes PEEP 5.0 Pressure Support Vent 500 Sodium Potassium Chloride Carbon Dioxide Anion Gap BUN Creatinine Est GFR (CKD-EPI)AfAm Est GFR (CKD-EPI)NonAf POC Glucometer 218 226 Random Glucose Calcium Total Bilirubin AST ALT Alkaline Phosphatase Total Protein Albumin Urine Myoglobin 02/19/19 02/19/19 02/19/19 13:45 13:45 16:47 WBC 15.8 H RBC 4.77 Hgb 14.7 Hct 45.5 MCV 95.4 MCH 30.8 MCHC 32.3 RDW 14.3 Plt Count 160 MPV 9.7 Absolute Neuts (auto) 14.7 H Neutrophils % 93.3 H Neutrophils % (Manual) 87.8 H Band Neutrophils % 1.0 Lymphocytes % 3.0 L D Lymphocytes % (Manual) 3.1 L Monocytes % 3.2 L Monocytes % (Manual) 6 Eosinophils % 0.4 Eosinophils % (Manual) 0.0 Basophils % 0.1 Basophils % (Manual) 0.0 Myelocytes % (Man) 0 Promyelocytes % (Man) 0 Blast Cells % (Manual) 0 Nucleated RBC % 0 Metamyelocytes 1 D Hypochromia 0 Platelet Estimate Normal Polychromasia 0 Poikilocytosis 0 Anisocytosis 0 Microcytosis 0 Macrocytosis 0 PTT (Actin FS) Anticoagulation Therapy Puncture Site ABG pH ABG pCO2 at Pt Temp ABG pO2 at Pt Temp ABG HCO3 ABG O2 Sat (Measured) ABG O2 Content ABG Base Excess Santi Test O2 Delivery Device Oxygen Flow Rate Vent Mode Vent Rate Mechanical Rate PEEP Pressure Support Vent Sodium 143 Potassium 3.3 L Chloride 103 Carbon Dioxide 33 H Anion Gap 7 L BUN 55.9 H Creatinine 2.0 H Est GFR (CKD-EPI)AfAm 38.87 Est GFR (CKD-EPI)NonAf 33.54 POC Glucometer 205 Random Glucose 192 H Calcium 8.4 L Total Bilirubin 1.5 H AST 48 H ALT 41 Alkaline Phosphatase 73 Total Protein 6.3 L Albumin 2.4 L Urine Myoglobin Current Medications Generic Name Dose Route Start Last Admin Trade Name Freq PRN Reason Stop Dose Admin Calcitriol 0.25 mcg 02/17/19 10:00 02/19/19 11:44 Rocaltrol - PO Not Given DAILY [facility] Calcium Acetate 667 mg 02/17/19 08:00 02/19/19 12:26 Phoslo - PO Not Given TIDCM T[facility]ES Chlorhexidine Gluconate 1 applic 02/17/19 22:00 02/18/19 21:59 Hibiclens For Decolonization - TP 1 applic HS [facility] Administration Clotrimazole 1 applic 02/17/19 10:00 02/19/19 11:45 Lotrimin 1% Cream - TP 1 applic BID [facility] Administration Diltiazem HCl 30 mg 02/17/19 14:00 02/19/19 16:38 Cardizem - PO Not Given TID [facility] Propofol 1,000,000 mcg in 100 mls @ 3.096 mls/hr 02/18/19 08:30 02/18/19 16: 00 Diprivan - IVPB 5 mcg/kg/min TITR [facility] 3.096 mls/hr Titration Protocol 5 MCG/KG/MIN Sodium Chloride 250 mls @ 3,000 mls/hr 02/18/19 13:39 Normal Saline - IV 02/19/19 13:39 PRN PRN Hypotension during Dialysis Sodium Chloride 1,000 mls @ 75 mls/hr 02/18/19 13:40 02/19/19 16:39 1/2 Normal Saline IV 75 mls/hr ASDIR TAVARES Administration Sodium Chloride 250 mls @ 3,000 mls/hr 02/19/19 08:25 Normal Saline - IV 02/20/19 08:25 PRN PRN Hypotension during Dialysis Ceftriaxone Sodium 1 gm/ 50 mls @ 200 mls/hr 02/19/19 15:00 02/19/19 17:01 Dextrose IVPB 200 mls/hr DAILY [facility] Administration Protocol Potassium Chloride 10 meq in 100 mls @ 100 mls/hr 02/19/19 15:15 02/19/19 17: 01 Potassium Chloride 10 Meq Premix Ivpb - IVPB 02/19/19 18:14 100 mls/hr Q60M [facility]ES Administration Insulin Aspart 1 vial 02/17/19 22:00 02/19/19 17:41 Novolog Vial Sliding Scale - SQ 4 units ACHS T[facility]ARES Administration Protocol Lamotrigine 100 mg 02/18/19 10:00 02/19/19 11:45 Lamictal - PO Not Given DAILY [facility] Mupirocin 1 applic 02/17/19 10:00 02/19/19 11:45 Bactroban Ointment (For Decolonization) - NS 02/22/19 09:59 1 applic BID T[facility]ES Administration Pantoprazole Sodium 40 mg 02/19/19 11:30 02/19/19 11:44 Protonix Iv IVPUSH 40 mg BID TAVARES Administration Home Medications Medication Instructions Recorded Allopurinol [Zyloprim -] 200 mg DAILY 02/17/19 Amlodipine Besylate 10 mg PO DAILY 02/17/19 Diazepam [Valium] 10 mg PO TID 02/17/19 Insulin Aspart [Novolog] 2 units TID 02/17/19 Insulin Glargine,Hum.rec.anlog 95 unit HS 02/17/19 [Toujeo Solostar] Lamotrigine 100 mg DAILY 02/17/19 Losartan/Hydrochlorothiazide 1 tablet DAILY 02/17/19 [Losartan-Hctz 100-12.5 mg Tab] Quetiapine Fumarate [Seroquel -] 200 mg PO HS 02/17/19 ASSESSMENT/PLAN: 68 year old male with history of DM 2, HTN, HLD, CKD, Obesity, Bipolar Disorder , Depression, Anxiety, lives alone, found on floor of his house by his brother, noted to have SMITA, DKA, Multiple electrolyte abnormalities, AMS. 1. Acute Hypercapneic Respiratory Failure, etiology unclear. Intubated. No consolidation on chest imaging. ?OHS/PHOEBE related. Pulmonary following. Febrile this AM. Septic screen requested - repeat CXR/Blood Cx requested. Urine Cx neg. Hemodynamically Stable. Started on IV Ceftriaxone empirically. 2. Syncope/Fall with LOC and Acute Encephalopathy (secondary to Uremia vs Hypernatremia vs Acidosis) Initially recovered mental status after adequate hydration and electrolyte replacement, but then became unresponsive yesterday AM requiring intubation. Initial CT Head negative for acute findings. No telemonitoring events. Echo - normal EF, small pericardial effusion, no signs of tamponade. Awaiting repeat CT Head to ensure no acute interval change. MRI recommended by Neurology 3. Coffee-ground material in NG tube. PPI. GI consult. H/H monitoring. 4. Atrial Fibrillation with RVR - resolved. Cardizem drip held. Cardizem po also held for now. Heparin drip held due to coffe ground material in NG tube. 5. SMITA on CKD 3 - likely sec to hypovolemia/ATN due to dehydration versus Acute Rhabdomyolysis - improved s/p initiation of HD by Nephrology via femoral HD catheter. Renal US - no obstruction. 5. Hypernatremia sec to dehydration - improving with HD 6. Hypokalemia/Hypocalcemia - repleted/resolved. Started on Calcitriol and Calcium supplementation. 7. DKA - resolved. Insulin drip discontinued. Endocrine following. 8. Bipolar Disorder - normally on Seroquel, Lamictal, Diazepam. 9. HTN - currently borderline BP - Norvasc, Losartan, HCTZ held. 10. Wounds R abdominal wall and L knee ? sec to fall/carpet burn - no surrounding erythema/infection. Wound Care consulted. DVT Px - Heparin drip held pending repeat CT Head and due to coffee ground material via NG.
[2019-02-19] MEDS ORDERED: ACETAMINOPHEN 1000 MG/100 ML VIAL (NON FORMULARY) IVPB ONE (21:33)
[2019-02-19] MEDS: CHLORHEXIDINE GLUCONATE 4% CLEANSER FOR DECOLONIZATION TP SCH (21:40)
[2019-02-19] MEDS ORDERED: MIDAZOLAM HCL 2 MG/2 ML SINGLE DOSE VIAL IVPUSH ONE (21:42)
[2019-02-20] MEDS: PANTOPRAZOLE SODIUM 40 MG VIAL IVPUSH SCH ×3 (01:01→21:20)
[2019-02-20] MEDS ORDERED: SODIUM CHLORIDE 500 ML IV STA (02:07)
[2019-02-20] MEDS: dilTIAZem HCL 30 MG TABLET (FP) PO SCH ×3 (05:53→21:20)
[2019-02-20 07:02] LABS: HEMATOCRIT 38.9 % (35.4-49); HEMOGLOBIN 12.8 GM/dL (11.7-16.9); MCH 31.4 pg (25.7-33.7); MCHC 32.9 g/dl (32.0-35.9); MEAN CELL VOLUME 95.6 fl (80-96); MEAN PLT VOLUME 10.1 fl (7.5-11.1); PLATELET COUNT 123 K/MM3 (134-434); RBC 4.07 M/mm3 (4.00-5.60); RDW 13.8 % (11.9-15.9)
[2019-02-20 07:15] LABS: ALBUMIN 1.8 g/dl (3.4-5.0); BILIRUBIN,TOTAL 1.7 mg/dL (0.2-1); CALCIUM 8.1 mg/dL (8.5-10.1); CREATININE 4.3 mg/dL (0.55-1.3); MAGNESIUM 2.7 mg/dL (1.8-2.4); PHOSPHOROUS 6.6 mg/dL (2.5-4.9); POTASSIUM 4.9 mmol/L (3.5-5.1); TOT PROT 4.9 g/dl (6.4-8.2)
[2019-02-20 07:20] LABS: BLOOD UREA NITROGEN 109.3 mg/dL (7-18)
[2019-02-20] MEDS: PROPOFOL 1,000,000 MCG/100 ML VIAL IVPB SCH ×2 (07:24→13:05)
[2019-02-20] MEDS: INSULIN SLIDING SCALE (NOVOLOG) 1 VIAL SQ SCH ×4 (07:25→23:58)
[2019-02-20] MEDS ORDERED: NOREPINEPHRINE BITARTRATE 4 MG/4 ML ML IV ONE (07:46)
[2019-02-20] MEDS: NOREPINEPHRINE BITARTRATE 4,000 MCG in DEXTROSE 5%-WATER - 496 ML IV SCH (08:14)
[2019-02-20] MEDS: CALCIUM ACETATE 667 MG CAPSULE (FP) PO SCH ×3 (08:15→17:16)
--- NOTE | 2019-02-20 09:14 | PN ---
Progress Note (short form) - Note Progress Note: Neurology CHIEF COMPLAINT: CVA PCP: unknown, psychiatrist Dr. Steve Navarro HISTORY OF PRESENT ILLNESS: Mr. Burnette is a 68 y/o man with a pmhx of kidney disease, DM, HTN, HLD, obesity, bipolar disorder, depression, and anxiety who is BIBA after being found down in his apt for an unknown period of time. History obtained from chart as pt was confused on exam and was unable to answer questions. Per the patient's brother, the pt had an appointment with a friend I gave admission and when he did not show up the pt's friend called the police to do a wellness check (the pt did not name the friend). Police found the pt down in his apartment and he was brought to the hospital by EMS, unclear how long the pt was down for. I was contacted by the emergency department for further evaluation as the patient demonstrated an NIH stroke scale of 14. Time of onset was unknown and additionally patient with generalized confusion and weakness more so than just focal deficits and therefore concern for possible underlying toxic metabolic, infectious, diffuse process. CT head without acute changes but there was multiple metabolic derangements on lab work. White blood cell count was 12 on admission. BUN/creatinine was 252//6.2 on admission. WBC, BUN/Cr. trending down. Lastly, blood glucose was 329 on admission, being optimized. Carotid Doppler completed, small-moderate yesenia soft plaque at the right common carotid bifurcation with intimal thickening and minimal plaque buildup on the left without evidence of hemodynamically significant stenosis bilaterally. Brain MRI ordered, not yet completed. Patient under critical care management, remains on mechanical ventilation status post intubation 02/18AM. Remains arousable during my conversation with him but somnolent. Defer to wean off sedation and extubated to critical care team and ICU attending if able to tolerate. Underlying derangements improving and receiving continued optimization. Active Medications Calcitriol (Rocaltrol -) 0.25 mcg PO DAILY [facility] Last Admin: 02/19/19 11:44 Dose: Not Given Calcium Acetate (Phoslo -) 667 mg PO TIDCM [facility] Last Admin: 02/20/19 08:15 Dose: Not Given Chlorhexidine Gluconate (Hibiclens For Decolonization -) 1 applic TP HS [facility] Last Admin: 02/19/19 21:40 Dose: 1 applic Clotrimazole (Lotrimin 1% Cream -) 1 applic TP BID [facility] Last Admin: 02/19/19 22:45 Dose: 1 applic Diltiazem HCl (Cardizem -) 30 mg PO TID [facility] Last Admin: 02/20/19 05:53 Dose: Not Given Propofol (Diprivan -) 1,000,000 mcg in 100 mls @ 3.096 mls/hr IVPB TITR [facility]; Protocol Last Admin: 02/20/19 07:24 Dose: 5 mcg/kg/min, 3.096 mls/hr Sodium Chloride (Normal Saline -) 250 mls @ 3,000 mls/hr IV PRN PRN PRN Reason: Hypotension during Dialysis Stop: 02/19/19 13:39 Sodium Chloride (1/2 Normal Saline) 1,000 mls @ 75 mls/hr IV ASDIR [facility] Last Admin: 02/19/19 16:39 Dose: 75 mls/hr Sodium Chloride (Normal Saline -) 250 mls @ 3,000 mls/hr IV PRN PRN PRN Reason: Hypotension during Dialysis Stop: 02/20/19 08:25 Ceftriaxone Sodium 1 gm/ (Dextrose) 50 mls @ 200 mls/hr IVPB DAILY [facility]; Protocol Last Admin: 02/19/19 17:01 Dose: 200 mls/hr Norepinephrine Bitartrate 4, (000 mcg/ Dextrose) 500 mls @ 37.5 mls/hr IV TITR [facility]; Protocol Last Admin: 02/20/19 08:14 Dose: 5 mcg/min, 37.5 mls/hr Insulin Aspart (Novolog Vial Sliding Scale -) 1 vial SQ ACHS [facility]; Protocol Last Admin: 02/20/19 07:25 Dose: 4 units Lamotrigine (Lamictal -) 100 mg PO DAILY [facility] Last Admin: 02/19/19 11:45 Dose: Not Given Mupirocin (Bactroban Ointment (For Decolonization) -) 1 applic NS BID [facility] Stop: 02/22/19 09:59 Last Admin: 02/19/19 22:50 Dose: 1 applic Pantoprazole Sodium (Protonix Iv) 40 mg IVPUSH BID [facility] Last Admin: 02/20/19 01:01 Dose: 40 mg PHYSICAL EXAMINATION Vital Signs Period Temp Pulse Resp BP Sys/Verdugo Pulse Ox Last 24 Hr 97.6 F-100.6 F 73-88 16-30 82-127/50-75 93-97 GENERAL: intubated and sedated HEAD: Normal with no signs of trauma. EYES: Pupils equal, round and reactive to light, extraocular movements intact, sclera anicteric, conjunctiva clear. No lid lag. LUNGS: Breath sounds equal, HEART: Regular rate irregularly irregular rhythm, normal S1 and S2 without murmur. ABDOMEN: Soft, not distended, normoactive bowel sounds, skin breakdown on R side of abdomen with sloughing wounds and ecchymosis, very TTP, guarding, no rebound, no masses, reducible umbilical hernia. UPPER EXTREMITIES: 2+ pulses, warm, well-perfused. No cyanosis. No clubbing. No peripheral edema. Cuts on bilateral elbows LOWER EXTREMITIES: 2+ pulses, warm, well-perfused. No calf tenderness. No peripheral edema. NEUROLOGICAL: intuabted, response to voice, not moving extremities to command, response to pain PSYCHIATRIC: Cooperative. poor eye contact. SKIN: +pressure ulcer to the right hip, skin breakdown to the right side of the abdomen, Abrasions to the right side of the face. Warm and dry. CBCD WBC 18.0 K/mm3 (4.0-10.0) H 02/20/19 06:05 RBC 4.07 M/mm3 (4.00-5.60) 02/20/19 06:05 Hgb 12.8 GM/dL (11.7-16.9) 02/20/19 06:05 Hct 38.9 % (35.4-49) 02/20/19 06:05 MCV 95.6 fl (80-96) 02/20/19 06:05 MCHC 32.9 g/dl (32.0-35.9) 02/20/19 06:05 RDW 13.8 % (11.9-15.9) 02/20/19 06:05 Plt Count 123 K/MM3 (134-434) L D 02/20/19 06:05 MPV 10.1 fl (7.5-11.1) 02/20/19 06:05 CMP Sodium 145 mmol/L (136-145) 02/20/19 06:05 Potassium 4.9 mmol/L (3.5-5.1) 02/20/19 06:05 Chloride 105 mmol/L (98-107) 02/20/19 06:05 Carbon Dioxide 31 mmol/L (21-32) 02/20/19 06:05 Anion Gap 9 MMOL/L (8-16) 02/20/19 06:05 BUN 109.3 mg/dL (7-18) H* 02/20/19 06:05 Creatinine 4.3 mg/dL (0.55-1.3) H 02/20/19 06:05 Random Glucose 231 mg/dL (74-106) H 02/20/19 06:05 Calcium 8.1 mg/dL (8.5-10.1) L 02/20/19 06:05 Total Bilirubin 1.7 mg/dL (0.2-1) H 02/20/19 06:05 AST 27 U/L (15-37) 02/20/19 06:05 ALT 26 U/L (13-61) 02/20/19 06:05 Alkaline Phosphatase 62 U/L (45-117) 02/20/19 06:05 Total Protein 4.9 g/dl (6.4-8.2) L 02/20/19 06:05 Albumin 1.8 g/dl (3.4-5.0) L 02/20/19 06:05 CARDIAC ENZYMES Creatine Kinase 950 U/L (26-308) H 02/17/19 16:15 Troponin I 0.04 ng/ml (0.00-0.05) 02/17/19 16:15 ASSESSMENT/PLAN: Mr. Burnette is a 68 y/o man with a pmhx of kidney disease, DM, HTN, HLD, obesity , bipolar disorder, depression, and anxiety who is BIBA after being found down in his apt for an unknown period of time. History obtained from chart as pt was confused on exam and was unable to answer questions. Per the patient's brother, the pt had an appointment with a friend I gave admission and when he did not show up the pt's friend called the police to do a wellness check (the pt did not name the friend). Police found the pt down in his apartment and he was brought to the hospital by EMS, unclear how long the pt was down for. Per the patient's brother, the pt is normally fully independent and able to complete all his ADLs unassisted. He lives alone in an apartment in [facility] and per the brother the pt keeps up with all his doctor appointments and takes his medications as prescribed. The pt's brother was unable to state what medicines his brother uses or which pharmacy his brother uses however states that his brother's psychiatrist is Dr. Steve Navarro and that he may know the answers to these questions. The brother reports he last saw the patient about 3 months ago. I was contacted by the emergency department for further evaluation as the patient demonstrated an NIH stroke scale of 14. Time of onset was unknown and additionally patient with generalized confusion and weakness more so than just focal deficits and therefore concern for possible underlying toxic metabolic, infectious, diffuse process. CT head without acute changes but there was multiple metabolic derangements on lab work. White blood cell count was 12 on admission. BUN/creatinine was 252//6.2 on admission. WBC, BUN/Cr. trending down. Lastly, blood glucose was 329 on admission, continues to be optimized. Carotid Doppler completed, small-moderate yesenia soft plaque at the right common carotid bifurcation with intimal thickening and minimal plaque buildup on the left without evidence of hemodynamically significant stenosis bilaterally. Would benefit from MRI brain to rule out CVA this seems more to be a diffuse generalized process and requires further medical optimization. Brain MRI ordered , not yet completed. Patient under critical care management, remains on mechanical ventilation status post intubation 1119AM. Remains arousable during my conversation with him but somnolent. Defer to wean off sedation and extubated to critical care team and ICU attending if able to tolerate. Underlying derangements improving and receiving continued optimization. Diabetic ketoacidosis, monitor glucose, maintain euglycemic range. Monitor electrolytes, follow-up recommendations from nephrology, IV hydration as tolerated, correct derangments. Monitor blood pressure, maintain less than 150/ 90. Follow up cultures. Wound care. Continue ICU level of monitoring. Critical care time 35 mins.
--- NOTE | 2019-02-20 09:23 | PN ---
Progress Note (short form) - Note Progress Note: WOUND CARE: Re-evaluation (initially seen by our team 02/18/19) Intubated. NAD. Last Vital Signs Temp Pulse Resp BP Pulse Ox 97.6 F 74 18 97/50 L 97 02/20/19 02:00 02/20/19 08:14 02/20/19 08:00 02/20/19 08:14 02/20/19 08:20 CBC, BMP 02/20/19 06:05 02/20/19 06:05 PE: GEN: Alert. NAD. Intubated. Eyes open upon command EYES: DANIELITO, EOMI ENT: Poor oral hygiene, intubated. NGT on LWCS (appears & smells feculent) LUNGS: Decreased breath sounds B/L HEART: RRR ABD: Obese habitus. Softly distended, umbilical hernia, RUQ skin: Grade 2 ulcer under right breast 9 cm x 5 cm and just lateral to that Grade 2 ulcer 6 cm x 3 cm. LE: 2+ pulses, warm, Left knee (medial aspect) unstageable pressure ulcer 9 cm x 4 cm --> no purulence/bogginess/induration/erythema. Not malodorous. Right hip with 7 cm x 4 cm unstageable ulcer --> no purulence/bogginess/ induration/erythema. Skin over heels intact bilaterally. Palpable DP & PT bilaterally. : Grade 1 to meatus and scrotum. Chou to gravity SKIN: Left Gluteal fold with Grade 2 ulcer 4 cm x 3 cm. Right gluteal fold with Grade 1 ulcer 4 cm x 2 cm Plan: Gentle IVF hydration Monitor BUN/Cr (improving slowly) HD prn as per Renal Serial CBC, BMP Tight glycemic control ET management as per Pulmonary & Respiratory Team GI PPX DVT PPX Monitor & record I/Os q shift Ulcer/DTI Prevention - Reposition every two hours while in bed - Air mattress recommended - Use drawsheets and Trendelenburg when repositioning to reduce friction and shear - Manageincontinence via timely cleansing, use of appropriate incontinence disposables and use of barrier ointment to intact skin - Ensure adequate nutrition, supplementation per primary team - Off-load areas of bony prominence (heels, ankles, hips and tailbone) with Allevyn/Optifoam Will cont to monitor and once patient stable and medically optimized may benefit from debridement to wounds with eschars (Left knee & Rt hip) Above discussed with Dr. Abreu and agrees. Problem List - Problems (1) Rhabdomyolysis Code(s): M62.82 - RHABDOMYOLYSIS (2) Renal failure Code(s): N19 - UNSPECIFIED KIDNEY FAILURE (3) Unstageable pressure injury of skin and tissue Code(s): L89.95 - PRESSURE ULCER OF UNSPECIFIED SITE, UNSTAGEABLE (4) HTN (hypertension) Code(s): I10 - ESSENTIAL (PRIMARY) HYPERTENSION (5) Leukocytosis Code(s): D72.829 - ELEVATED WHITE BLOOD CELL COUNT, UNSPECIFIED
[2019-02-20] MEDS: CALCITRIOL 0.25 MCG CAPSULE (FP) PO SCH (09:43)
[2019-02-20] MEDS: lamoTRIgine 100 MG TABLET (FP) PO SCH (09:43)
[2019-02-20] MEDS ORDERED: cefTRIAXone SODIUM 1 GM VIAL ONE (09:54)
[2019-02-20] MEDS ORDERED: DEXTROSE 5%-WATER - 50 ML IVPB ONE ×2 (09:54→17:11)
--- NOTE | 2019-02-20 10:04 | PN ---
Progress Note, Physician History of Present Illness: Arousable on vent, undergoing HD, remains in SR, no PAF. Coffee grounds on OGT, heparin gtt d/edwin. - Current Medication List Current Medications: Active Medications Calcitriol (Rocaltrol -) 0.25 mcg PO DAILY [facility] Last Admin: 02/20/19 09:43 Dose: Not Given Calcium Acetate (Phoslo -) 667 mg PO TIDCM [facility] Last Admin: 02/20/19 08:15 Dose: Not Given Chlorhexidine Gluconate (Hibiclens For Decolonization -) 1 applic TP HS [facility] Last Admin: 02/19/19 21:40 Dose: 1 applic Clotrimazole (Lotrimin 1% Cream -) 1 applic TP BID [facility] Last Admin: 02/19/19 22:45 Dose: 1 applic Diltiazem HCl (Cardizem -) 30 mg PO TID [facility] Last Admin: 02/20/19 05:53 Dose: Not Given Propofol (Diprivan -) 1,000,000 mcg in 100 mls @ 3.096 mls/hr IVPB TITR [facility]; Protocol Last Admin: 02/20/19 07:24 Dose: 5 mcg/kg/min, 3.096 mls/hr Sodium Chloride (Normal Saline -) 250 mls @ 3,000 mls/hr IV PRN PRN PRN Reason: Hypotension during Dialysis Stop: 02/19/19 13:39 Sodium Chloride (1/2 Normal Saline) 1,000 mls @ 75 mls/hr IV ASDIR [facility] Last Admin: 02/19/19 16:39 Dose: 75 mls/hr Sodium Chloride (Normal Saline -) 250 mls @ 3,000 mls/hr IV PRN PRN PRN Reason: Hypotension during Dialysis Stop: 02/20/19 08:25 Ceftriaxone Sodium 1 gm/ (Dextrose) 50 mls @ 200 mls/hr IVPB DAILY [facility]; Protocol Last Admin: 02/19/19 17:01 Dose: 200 mls/hr Norepinephrine Bitartrate 4, (000 mcg/ Dextrose) 500 mls @ 37.5 mls/hr IV TITR [facility]; Protocol Last Admin: 02/20/19 08:14 Dose: 5 mcg/min, 37.5 mls/hr Insulin Aspart (Novolog Vial Sliding Scale -) 1 vial SQ ACHS [facility]; Protocol Last Admin: 02/20/19 07:25 Dose: 4 units Lamotrigine (Lamictal -) 100 mg PO DAILY [facility] Last Admin: 02/20/19 09:43 Dose: Not Given Mupirocin (Bactroban Ointment (For Decolonization) -) 1 applic NS BID [facility] Stop: 02/22/19 09:59 Last Admin: 02/19/19 22:50 Dose: 1 applic Pantoprazole Sodium (Protonix Iv) 40 mg IVPUSH BID [facility] Last Admin: 02/20/19 01:01 Dose: 40 mg - Objective Vital Signs: Vital Signs Temperature 97.6 F 02/20/19 02:00 Pulse Rate 74 02/20/19 08:14 Respiratory Rate 19 02/20/19 08:00 Blood Pressure 97/50 L 02/20/19 08:14 O2 Sat by Pulse Oximetry (%) 97 02/20/19 08:20 Constitutional: Yes: No Distress, Calm Neck: Yes: Supple Cardiovascular: Yes: Regular Rate and Rhythm Respiratory: Yes: Mechanically Ventilated, On Venti-Mask Gastrointestinal: Yes: Normal Bowel Sounds, Soft, Abdomen, Obese Genitourinary: Yes: Chou Present Edema: No Labs: CBC, BMP 02/20/19 06:05 02/20/19 06:05 INR, PTT INR 1.54 (0.83-1.09) H 02/17/19 05:13 - ....Imaging Chest X-ray: Report Reviewed (Right base changes) EKG: Report Reviewed (Tele: NSR occ PVC) Problem List - Problems (1) Paroxysmal atrial fibrillation with rapid ventricular response Code(s): I48.0 - PAROXYSMAL ATRIAL FIBRILLATION Assessment/Plan 02/17/2019 Echo: Normal LV size with mild cLVH, LVEF 60-65%, normal LA size, mild ao 4.0 cm Problem List - Problems (1) HTN (hypertension) Code(s): I10 - ESSENTIAL (PRIMARY) HYPERTENSION (2) Hypercholesterolemia Code(s): E78.00 - PURE HYPERCHOLESTEROLEMIA, UNSPECIFIED (3) Bipolar disorder Code(s): F31.9 - BIPOLAR DISORDER, UNSPECIFIED (4) Leukocytosis Code(s): D72.829 - ELEVATED WHITE BLOOD CELL COUNT, UNSPECIFIED (5) Renal failure Code(s): N19 - UNSPECIFIED KIDNEY FAILURE (6) Rhabdomyolysis Code(s): M62.82 - RHABDOMYOLYSIS Assessment/Plan 1. ? Syncope, altered mental status 2. Acute Respiratory failure on mechanical ventilation 3. HTN 4. Hypercholesterolemia 5. SMITA and hyperkalemia underlying CKD due to dehydration ?rhabdomyolosis requiring HD 6. Hypernatremia due to above 7. Bipolar disorder, depression and anxiety 8. PAF currently in sinus rhythm [id number] score of either 2-3 9. Carotid artery disease 10. Coffee ground emesis possible esophagitis, gastritis, PUD, AVMs or other underlying lesion PLAN: 1. Heparin drip d/edwin for now with monitor Hgb, resumption of anticoagulation pending hemostasis 2. HD per renal with monitor urine output, renal recovery and electrolytes 3. Currently written for Cardizem 30 tid but not given 4. Vent wean as tolerated, NGT low intermittent suction 5. Neuro recommended MRI when stable 6. While pt may require EGD to further evaluate and prior to resuming a/c currently there is no emergent indication in setting of stable Hb/hemodynamics. Once further optimized will determine timing of endoscopy accordingly.
[2019-02-20] MEDS: CEFTRIAXONE 1 GM in DEXTROSE 5%-WATER - 50 ML IVPB SCH (10:08)
[2019-02-20] MEDS: MUPIROCIN 2% TOPICAL OINTMENT FOR DECOLONIZATION NS SCH ×2 (10:33→21:20)
[2019-02-20] MEDS: CLOTRIMAZOLE 1% CREAM 15 GM TUBE TP SCH ×2 (10:33→21:20)
--- NOTE | 2019-02-20 12:03 | PN ---
Physical Exam: SUBJECTIVE: Patient seen and examined in the morning. No acute events overnight , but patient was hypotensive with systolic blood pressures as low as 82. Was started on levophed drip. OBJECTIVE: Vital Signs Period Temp Pulse Resp BP Sys/Verdugo Pulse Ox Last 24 Hr 97.6 F-99.8 F 73-90 15-30 82-129/50-73 93-98 GENERAL: The patient is sedated but alert. EYES: PERRL, conjunctiva clear. LUNGS: Ventilator sounds predominate. Equal on both sides. HEART: Regular rate and rhythm, S1, S2. ABDOMEN: Soft, normoactive bowel sounds. Patient has NGT in place with coffee ground liquid in cannister. Patient grimaces to palpation of abdomen. EXTREMITIES: 2+ pulses, warm, well-perfused, no edema. Laboratory Results - last 24 hr 02/17/19 02/18/19 02/19/19 00:36 14:25 13:45 WBC 15.8 H RBC 4.77 Hgb 14.7 Hct 45.5 MCV 95.4 MCH 30.8 MCHC 32.3 RDW 14.3 Plt Count 160 MPV 9.7 Absolute Neuts (auto) 14.7 H Neutrophils % 93.3 H Neutrophils % (Manual) 87.8 H Band Neutrophils % 1.0 Lymphocytes % 3.0 L D Lymphocytes % (Manual) 3.1 L Monocytes % 3.2 L Monocytes % (Manual) 6 Eosinophils % 0.4 Eosinophils % (Manual) 0.0 Basophils % 0.1 Basophils % (Manual) 0.0 Myelocytes % (Man) 0 Promyelocytes % (Man) 0 Blast Cells % (Manual) 0 Nucleated RBC % 0 Metamyelocytes 1 D Hypochromia 0 Platelet Estimate Normal Polychromasia 0 Poikilocytosis 0 Anisocytosis 0 Microcytosis 0 Macrocytosis 0 PTT (Actin FS) Sodium Potassium Chloride Carbon Dioxide Anion Gap BUN Creatinine Est GFR (CKD-EPI)AfAm Est GFR (CKD-EPI)NonAf POC Glucometer Random Glucose Calcium Phosphorus Magnesium Total Bilirubin AST ALT Alkaline Phosphatase Total Protein Albumin Urine Myoglobin 44 H Hep C Ab Diagnostic <0.1 02/19/19 02/19/19 02/19/19 13:45 16:47 23:11 WBC RBC Hgb Hct MCV MCH MCHC RDW Plt Count MPV Absolute Neuts (auto) Neutrophils % Neutrophils % (Manual) Band Neutrophils % Lymphocytes % Lymphocytes % (Manual) Monocytes % Monocytes % (Manual) Eosinophils % Eosinophils % (Manual) Basophils % Basophils % (Manual) Myelocytes % (Man) Promyelocytes % (Man) Blast Cells % (Manual) Nucleated RBC % Metamyelocytes Hypochromia Platelet Estimate Polychromasia Poikilocytosis Anisocytosis Microcytosis Macrocytosis PTT (Actin FS) Sodium 143 Potassium 3.3 L Chloride 103 Carbon Dioxide 33 H Anion Gap 7 L BUN 55.9 H Creatinine 2.0 H Est GFR (CKD-EPI)AfAm 38.87 Est GFR (CKD-EPI)NonAf 33.54 POC Glucometer 205 188 Random Glucose 192 H Calcium 8.4 L Phosphorus Magnesium Total Bilirubin 1.5 H AST 48 H ALT 41 Alkaline Phosphatase 73 Total Protein 6.3 L Albumin 2.4 L Urine Myoglobin Hep C Ab Diagnostic 02/20/19 02/20/19 02/20/19 06:05 06:05 06:05 WBC 18.0 H RBC 4.07 Hgb 12.8 Hct 38.9 MCV 95.6 MCH 31.4 MCHC 32.9 RDW 13.8 Plt Count 123 L D MPV 10.1 Absolute Neuts (auto) Neutrophils % Neutrophils % (Manual) Band Neutrophils % Lymphocytes % Lymphocytes % (Manual) Monocytes % Monocytes % (Manual) Eosinophils % Eosinophils % (Manual) Basophils % Basophils % (Manual) Myelocytes % (Man) Promyelocytes % (Man) Blast Cells % (Manual) Nucleated RBC % Metamyelocytes Hypochromia Platelet Estimate Polychromasia Poikilocytosis Anisocytosis Microcytosis Macrocytosis PTT (Actin FS) 29.8 Sodium 145 Potassium 4.9 Chloride 105 Carbon Dioxide 31 Anion Gap 9 BUN 109.3 H* Creatinine 4.3 H Est GFR (CKD-EPI)AfAm 15.41 Est GFR (CKD-EPI)NonAf 13.29 POC Glucometer Random Glucose 231 H Calcium 8.1 L Phosphorus 6.6 H Magnesium 2.7 H Total Bilirubin 1.7 H AST 27 ALT 26 Alkaline Phosphatase 62 Total Protein 4.9 L Albumin 1.8 L Urine Myoglobin Hep C Ab Diagnostic 02/20/19 06:42 WBC RBC Hgb Hct MCV MCH MCHC RDW Plt Count MPV Absolute Neuts (auto) Neutrophils % Neutrophils % (Manual) Band Neutrophils % Lymphocytes % Lymphocytes % (Manual) Monocytes % Monocytes % (Manual) Eosinophils % Eosinophils % (Manual) Basophils % Basophils % (Manual) Myelocytes % (Man) Promyelocytes % (Man) Blast Cells % (Manual) Nucleated RBC % Metamyelocytes Hypochromia Platelet Estimate Polychromasia Poikilocytosis Anisocytosis Microcytosis Macrocytosis PTT (Actin FS) Sodium Potassium Chloride Carbon Dioxide Anion Gap BUN Creatinine Est GFR (CKD-EPI)AfAm Est GFR (CKD-EPI)NonAf POC Glucometer 203 Random Glucose Calcium Phosphorus Magnesium Total Bilirubin AST ALT Alkaline Phosphatase Total Protein Albumin Urine Myoglobin Hep C Ab Diagnostic Active Medications Generic Name Dose Route Start Last Admin Trade Name Freq PRN Reason Stop Dose Admin Calcitriol 0.25 mcg 02/17/19 10:00 02/20/19 09:43 Rocaltrol - PO Not Given DAILY [facility] Calcium Acetate 667 mg 02/17/19 08:00 02/20/19 08:15 Phoslo - PO Not Given TIDCM [facility] Chlorhexidine Gluconate 1 applic 02/17/19 22:00 02/19/19 21:40 Hibiclens For Decolonization - TP 1 applic HS [facility] Administration Clotrimazole 1 applic 02/17/19 10:00 02/20/19 10:33 Lotrimin 1% Cream - TP 1 applic BID [facility] Administration Diltiazem HCl 30 mg 02/17/19 14:00 02/20/19 05:53 Cardizem - PO Not Given TID [facility] Propofol 1,000,000 mcg in 100 mls @ 3.096 mls/hr 02/18/19 08:30 02/20/19 07: 24 Diprivan - IVPB 5 mcg/kg/min TITR [facility] 3.096 mls/hr Administration Protocol 5 MCG/KG/MIN Sodium Chloride 250 mls @ 3,000 mls/hr 02/18/19 13:39 Normal Saline - IV 02/19/19 13:39 PRN PRN Hypotension during Dialysis Sodium Chloride 1,000 mls @ 75 mls/hr 02/18/19 13:40 02/19/19 16:39 1/2 Normal Saline IV 75 mls/hr ASDIR [facility] Administration Sodium Chloride 250 mls @ 3,000 mls/hr 02/19/19 08:25 Normal Saline - IV 02/20/19 08:25 PRN PRN Hypotension during Dialysis Ceftriaxone Sodium 1 gm/ 50 mls @ 200 mls/hr 02/19/19 15:00 02/20/19 10:08 Dextrose IVPB 200 mls/hr DAILY [facility] Administration Protocol Norepinephrine Bitartrate 4, 500 mls @ 37.5 mls/hr 02/20/19 07:30 02/20/19 10 :00 000 mcg/ Dextrose IV 3 mcg/min TITR [facility] 22.5 mls/hr Titration Protocol 5 MCG/MIN Insulin Aspart 1 vial 02/17/19 22:00 02/20/19 07:25 Novolog Vial Sliding Scale - SQ 4 units ACHS [facility] Administration Protocol Lamotrigine 100 mg 02/18/19 10:00 02/20/19 09:43 Lamictal - PO Not Given DAILY [facility] Mupirocin 1 applic 02/17/19 10:00 02/20/19 10:33 Bactroban Ointment (For Decolonization) - NS 02/22/19 09:59 1 applic BID [facility] Administration Pantoprazole Sodium 40 mg 02/19/19 11:30 02/20/19 10:14 Protonix Iv IVPUSH 40 mg BID [facility] Administration ASSESSMENT/PLAN: 68 M with PMH of DM, HTN, HLD, CKD, obesity, bipolar disorder, depression, and anxiety, who was brought to ED after being found down on the floor by brother with AMS. 1) AMS -Likely a toxic metabolic encephalopathy from uremia or electrolyte abnormalities or DKA -Patient sedated but able to respond to name. On propofol 10. -Patient intubated -F/U MRI -CT head negative -F/U repeat CT Head negative for bleeds -1/2 NS @75 ml/hr -Insulin drip held -Sliding scale insulin -Endocrinology consulted, appreciate recs -Neurology consulted, appreciate recs 2) SMITA -Hemodialysis today -Strict I/O -Rhabdomyolysis observed, CPK trending down. -Renal U/S unremarkable -Nephrology consulted, appreciate recs 3) Pneumonia -CT Abdomen shows left lower lobe consolidation. -Ceftriaxone 1 gram daily -ID consulted, appreciate recs 4)New onset Afib -Replete Ca aggressively -Cardizem PO 30 mg TID PRN -Heparin drip held -Cardiology consulted, appreciate recs -Echo shows normal EF -Normal sinus now 5)Upper GI Bleed -Protonix 40 mg IV BID -EGD not emergent in setting of stable Hgb/Hct. -CTA/P shows: 1. Extensive bilateral lower lobe consolidation, right greater than left. 2. No evidence of bowel obstruction or acute pathology within the abdomen or pelvis. -Abdomen X-Ray: 2 views of the abdomen reveal a paucity of bowel gas with a few isolated distended loops of bowel in the right upper quadrant. There are degenerative changes, no sign of free air or pneumatosis and there is a left iliac catheter. Correlation recommended. -GI Consuted appreciate recs 6)History of Bipolar disorder -Holding home meds 7) Wounds on lower chest, upper abdomen -Wound Care consulted, appreciate recs -pain management PRN Dispo: ICU monitoring F: 1/2 NS @ 150 ml/hr E: Trend CMP. Replete as needed N: NPO DVT: SCDS Visit type - Emergency Visit Emergency Visit: Yes ED Registration Date: 02/16/19 Care time: The patient presented to the Emergency Department on the above date and was hospitalized for further evaluation of their emergent condition. - New Patient This patient is new to me today: No - Critical Care Critical Care patient: Yes Total Critical Care Time (in minutes): 30 Critical Care Statement: The care of this patient involved high complexity decision making to prevent further life threatening deterioration of the patient 's condition and/or to evaluate & treat vital organ system(s) failure or risk of failure. ATTENDING PHYSICIAN STATEMENT I saw and evaluated the patient. I reviewed the resident's note and discussed the case with the resident. I agree with the resident's findings and plan as documented. SUBJECTIVE: OBJECTIVE: ASSESSMENT AND PLAN:
--- NOTE | 2019-02-20 12:21 | PN ---
Progress Note, Physician History of Present Illness: Pt seen and examined at bedside. He remains in the ICU. He responds to verbal stimuli. He remain intubated. - Current Medication List Current Medications: Active Medications Calcitriol (Rocaltrol -) 0.25 mcg PO DAILY [facility] Last Admin: 02/20/19 09:43 Dose: Not Given Calcium Acetate (Phoslo -) 667 mg PO TIDCM [facility] Last Admin: 02/20/19 08:15 Dose: Not Given Chlorhexidine Gluconate (Hibiclens For Decolonization -) 1 applic TP HS [facility] Last Admin: 02/19/19 21:40 Dose: 1 applic Clotrimazole (Lotrimin 1% Cream -) 1 applic TP BID [facility] Last Admin: 02/20/19 10:33 Dose: 1 applic Diltiazem HCl (Cardizem -) 30 mg PO TID [facility] Last Admin: 02/20/19 05:53 Dose: Not Given Propofol (Diprivan -) 1,000,000 mcg in 100 mls @ 3.096 mls/hr IVPB TITR [facility]; Protocol Last Admin: 02/20/19 07:24 Dose: 5 mcg/kg/min, 3.096 mls/hr Sodium Chloride (Normal Saline -) 250 mls @ 3,000 mls/hr IV PRN PRN PRN Reason: Hypotension during Dialysis Stop: 02/19/19 13:39 Sodium Chloride (1/2 Normal Saline) 1,000 mls @ 75 mls/hr IV ASDIR [facility] Last Admin: 02/19/19 16:39 Dose: 75 mls/hr Sodium Chloride (Normal Saline -) 250 mls @ 3,000 mls/hr IV PRN PRN PRN Reason: Hypotension during Dialysis Stop: 02/20/19 08:25 Ceftriaxone Sodium 1 gm/ (Dextrose) 50 mls @ 200 mls/hr IVPB DAILY [facility]; Protocol Last Admin: 02/20/19 10:08 Dose: 200 mls/hr Norepinephrine Bitartrate 4, (000 mcg/ Dextrose) 500 mls @ 37.5 mls/hr IV TITR [facility]; Protocol Last Titration: 02/20/19 10:00 Dose: 3 mcg/min, 22.5 mls/hr Insulin Aspart (Novolog Vial Sliding Scale -) 1 vial SQ ACHS [facility]; Protocol Last Admin: 02/20/19 07:25 Dose: 4 units Lamotrigine (Lamictal -) 100 mg PO DAILY [facility] Last Admin: 02/20/19 09:43 Dose: Not Given Mupirocin (Bactroban Ointment (For Decolonization) -) 1 applic NS BID [facility] Stop: 02/22/19 09:59 Last Admin: 02/20/19 10:33 Dose: 1 applic Pantoprazole Sodium (Protonix Iv) 40 mg IVPUSH BID [facility] Last Admin: 02/20/19 10:14 Dose: 40 mg - Objective Vital Signs: Vital Signs Temperature 98.4 F 02/20/19 10:00 Pulse Rate 78 02/20/19 11:30 Respiratory Rate 30 H 02/20/19 12:10 Blood Pressure 108/55 L 02/20/19 11:30 O2 Sat by Pulse Oximetry (%) 98 02/20/19 11:30 Constitutional: Yes: Calm Eyes: Yes: Conjunctiva Clear HENT: Yes: Atraumatic Neck: Yes: Supple Cardiovascular: Yes: S1, S2 Respiratory: Yes: Intubated, Mechanically Ventilated Gastrointestinal: Yes: Normal Bowel Sounds, Soft, Abdomen, Obese Genitourinary: Yes: Chou Present, Oliguria Musculoskeletal: Yes: WNL Edema: No Neurological: Yes: Tingling (awake) Labs: CBC, BMP 02/20/19 06:05 02/20/19 06:05 INR, PTT INR 1.54 (0.83-1.09) H 02/17/19 05:13 Assessment/Plan Current Medications Generic Name Dose Route Start Last Admin Trade Name Rufina PRN Reason Stop Dose Admin Calcitriol 0.25 mcg 02/17/19 10:00 02/20/19 09:43 Rocaltrol - PO Not Given DAILY [facility] Calcium Acetate 667 mg 02/17/19 08:00 02/20/19 08:15 Phoslo - PO Not Given TIDCM [facility] Chlorhexidine Gluconate 1 applic 02/17/19 22:00 02/19/19 21:40 Hibiclens For Decolonization - TP 1 applic HS [facility] Administration Clotrimazole 1 applic 02/17/19 10:00 02/20/19 10:33 Lotrimin 1% Cream - TP 1 applic BID [facility] Administration Diltiazem HCl 30 mg 02/17/19 14:00 11/21/19 05:53 Cardizem - PO Not Given TID [facility] Propofol 1,000,000 mcg in 100 mls @ 3.096 mls/hr 02/18/19 08:30 02/20/19 07: 24 Diprivan - IVPB 5 mcg/kg/min TITR [facility] 3.096 mls/hr Administration Protocol 5 MCG/KG/MIN Sodium Chloride 250 mls @ 3,000 mls/hr 02/18/19 13:39 Normal Saline - IV 02/19/19 13:39 PRN PRN Hypotension during Dialysis Sodium Chloride 1,000 mls @ 75 mls/hr 02/18/19 13:40 02/19/19 16:39 1/2 Normal Saline IV 75 mls/hr ASDIR [facility] Administration Sodium Chloride 250 mls @ 3,000 mls/hr 02/19/19 08:25 Normal Saline - IV 02/20/19 08:25 PRN PRN Hypotension during Dialysis Ceftriaxone Sodium 1 gm/ 50 mls @ 200 mls/hr 02/19/19 15:00 02/20/19 10:08 Dextrose IVPB 200 mls/hr DAILY [facility] Administration Protocol Norepinephrine Bitartrate 4, 500 mls @ 37.5 mls/hr 02/20/19 07:30 02/20/19 10 :00 000 mcg/ Dextrose IV 3 mcg/min TITR [facility] 22.5 mls/hr Titration Protocol 5 MCG/MIN Insulin Aspart 1 vial 02/17/19 22:00 02/20/19 07:25 Novolog Vial Sliding Scale - SQ 4 units ACHS [facility] Administration Protocol Lamotrigine 100 mg 02/18/19 10:00 02/20/19 09:43 Lamictal - PO Not Given DAILY [facility] Mupirocin 1 applic 02/17/19 10:00 02/20/19 10:33 Bactroban Ointment (For Decolonization) - NS 02/22/19 09:59 1 applic BID [facility] Administration Pantoprazole Sodium 40 mg 02/19/19 11:30 02/20/19 10:14 Protonix Iv IVPUSH 40 mg BID [facility] Administration Laboratory Tests 02/20/19 02/20/19 06:05 06:05 TY M-Tremaine Pending AMADEO Screen Pending c-ANCA Pending Proteinase 3 (PR3) Pending p-ANCA Pending Atypical p-ANCA Pending Myeloperoxidase Ab Pending Glomerular Base Memb Ab Pending Impression 1. SMITA 2. rhabdo 3. dka 4. altered mental status 5. hyperkalemia 6. resp failure Plan - cont fluids - HD again tomorrow - GI workup in progress - follow serologies - weaning per pulmonary - monitor urine output - monitor bp
--- NOTE | 2019-02-20 12:25 | PN ---
Teaching Attending Note Name of Resident: Julio Dobbins ATTENDING PHYSICIAN STATEMENT I saw and evaluated the patient. I reviewed the resident's note and discussed the case with the resident. I agree with the resident's findings and plan as documented. SUBJECTIVE: Patient seen and examined in the ICU. Remains intubated, arousable on sedation. Still with some bloody output from OGT. OBJECTIVE: Intake & Output 02/17/19 02/18/19 02/19/19 02/20/19 23:59 23:59 23:59 23:59 Intake Total 1450 2516.4 3000.7 1184 Output Total 1680 2750 2000 1200 Balance -230 -233.6 1000.7 -16 Weight 227 lb 223 lb 6.4 oz Last Vital Signs Temp Pulse Resp BP Pulse Ox 98.4 F 78 30 H 108/55 L 98 02/20/19 10:00 02/20/19 11:30 02/20/19 12:10 02/20/19 11:30 02/20/19 11:30 Active Medications Calcitriol (Rocaltrol -) 0.25 mcg PO DAILY [facility] Last Admin: 02/20/19 09:43 Dose: Not Given Calcium Acetate (Phoslo -) 667 mg PO TIDCM [facility] Last Admin: 02/20/19 08:15 Dose: Not Given Chlorhexidine Gluconate (Hibiclens For Decolonization -) 1 applic TP HS [facility] Last Admin: 02/19/19 21:40 Dose: 1 applic Clotrimazole (Lotrimin 1% Cream -) 1 applic TP BID [facility] Last Admin: 02/20/19 10:33 Dose: 1 applic Diltiazem HCl (Cardizem -) 30 mg PO TID [facility] Last Admin: 02/20/19 05:53 Dose: Not Given Propofol (Diprivan -) 1,000,000 mcg in 100 mls @ 3.096 mls/hr IVPB TITR [facility]; Protocol Last Admin: 02/20/19 07:24 Dose: 5 mcg/kg/min, 3.096 mls/hr Sodium Chloride (Normal Saline -) 250 mls @ 3,000 mls/hr IV PRN PRN PRN Reason: Hypotension during Dialysis Stop: 02/19/19 13:39 Sodium Chloride (1/2 Normal Saline) 1,000 mls @ 75 mls/hr IV ASDIR [facility] Last Admin: 02/19/19 16:39 Dose: 75 mls/hr Sodium Chloride (Normal Saline -) 250 mls @ 3,000 mls/hr IV PRN PRN PRN Reason: Hypotension during Dialysis Stop: 02/20/19 08:25 Ceftriaxone Sodium 1 gm/ (Dextrose) 50 mls @ 200 mls/hr IVPB DAILY [facility]; Protocol Last Admin: 02/20/19 10:08 Dose: 200 mls/hr Norepinephrine Bitartrate 4, (000 mcg/ Dextrose) 500 mls @ 37.5 mls/hr IV TITR [facility]; Protocol Last Titration: 02/20/19 10:00 Dose: 3 mcg/min, 22.5 mls/hr Insulin Aspart (Novolog Vial Sliding Scale -) 1 vial SQ ACHS [facility]; Protocol Last Admin: 02/20/19 07:25 Dose: 4 units Lamotrigine (Lamictal -) 100 mg PO DAILY [facility] Last Admin: 02/20/19 09:43 Dose: Not Given Mupirocin (Bactroban Ointment (For Decolonization) -) 1 applic NS BID [facility] Stop: 02/22/19 09:59 Last Admin: 02/20/19 10:33 Dose: 1 applic Pantoprazole Sodium (Protonix Iv) 40 mg IVPUSH BID [facility] Last Admin: 02/20/19 10:14 Dose: 40 mg Gen: intubated, sedated Heart: RRR Lung: decreased breath sounds at the bases Abd: soft, nontender Ext: no edema Laboratory Results - last 24 hr 02/17/19 02/18/19 02/19/19 00:36 14:25 13:45 WBC 15.8 H RBC 4.77 Hgb 14.7 Hct 45.5 MCV 95.4 MCH 30.8 MCHC 32.3 RDW 14.3 Plt Count 160 MPV 9.7 Absolute Neuts (auto) 14.7 H Neutrophils % 93.3 H Neutrophils % (Manual) 87.8 H Band Neutrophils % 1.0 Lymphocytes % 3.0 L D Lymphocytes % (Manual) 3.1 L Monocytes % 3.2 L Monocytes % (Manual) 6 Eosinophils % 0.4 Eosinophils % (Manual) 0.0 Basophils % 0.1 Basophils % (Manual) 0.0 Myelocytes % (Man) 0 Promyelocytes % (Man) 0 Blast Cells % (Manual) 0 Nucleated RBC % 0 Metamyelocytes 1 D Hypochromia 0 Platelet Estimate Normal Polychromasia 0 Poikilocytosis 0 Anisocytosis 0 Microcytosis 0 Macrocytosis 0 PTT (Actin FS) Sodium Potassium Chloride Carbon Dioxide Anion Gap BUN Creatinine Est GFR (CKD-EPI)AfAm Est GFR (CKD-EPI)NonAf POC Glucometer Random Glucose Calcium Phosphorus Magnesium Total Bilirubin AST ALT Alkaline Phosphatase Total Protein Albumin Urine Myoglobin 44 H Hep C Ab Diagnostic <0.1 02/19/19 02/19/19 02/19/19 13:45 16:47 23:11 WBC RBC Hgb Hct MCV MCH MCHC RDW Plt Count MPV Absolute Neuts (auto) Neutrophils % Neutrophils % (Manual) Band Neutrophils % Lymphocytes % Lymphocytes % (Manual) Monocytes % Monocytes % (Manual) Eosinophils % Eosinophils % (Manual) Basophils % Basophils % (Manual) Myelocytes % (Man) Promyelocytes % (Man) Blast Cells % (Manual) Nucleated RBC % Metamyelocytes Hypochromia Platelet Estimate Polychromasia Poikilocytosis Anisocytosis Microcytosis Macrocytosis PTT (Actin FS) Sodium 143 Potassium 3.3 L Chloride 103 Carbon Dioxide 33 H Anion Gap 7 L BUN 55.9 H Creatinine 2.0 H Est GFR (CKD-EPI)AfAm 38.87 Est GFR (CKD-EPI)NonAf 33.54 POC Glucometer 205 188 Random Glucose 192 H Calcium 8.4 L Phosphorus Magnesium Total Bilirubin 1.5 H AST 48 H ALT 41 Alkaline Phosphatase 73 Total Protein 6.3 L Albumin 2.4 L Urine Myoglobin Hep C Ab Diagnostic 02/20/19 02/20/19 02/20/19 06:05 06:05 06:05 WBC 18.0 H RBC 4.07 Hgb 12.8 Hct 38.9 MCV 95.6 MCH 31.4 MCHC 32.9 RDW 13.8 Plt Count 123 L D MPV 10.1 Absolute Neuts (auto) Neutrophils % Neutrophils % (Manual) Band Neutrophils % Lymphocytes % Lymphocytes % (Manual) Monocytes % Monocytes % (Manual) Eosinophils % Eosinophils % (Manual) Basophils % Basophils % (Manual) Myelocytes % (Man) Promyelocytes % (Man) Blast Cells % (Manual) Nucleated RBC % Metamyelocytes Hypochromia Platelet Estimate Polychromasia Poikilocytosis Anisocytosis Microcytosis Macrocytosis PTT (Actin FS) 29.8 Sodium 145 Potassium 4.9 Chloride 105 Carbon Dioxide 31 Anion Gap 9 BUN 109.3 H* Creatinine 4.3 H Est GFR (CKD-EPI)AfAm 15.41 Est GFR (CKD-EPI)NonAf 13.29 POC Glucometer Random Glucose 231 H Calcium 8.1 L Phosphorus 6.6 H Magnesium 2.7 H Total Bilirubin 1.7 H AST 27 ALT 26 Alkaline Phosphatase 62 Total Protein 4.9 L Albumin 1.8 L Urine Myoglobin Hep C Ab Diagnostic 02/20/19 06:42 WBC RBC Hgb Hct MCV MCH MCHC RDW Plt Count MPV Absolute Neuts (auto) Neutrophils % Neutrophils % (Manual) Band Neutrophils % Lymphocytes % Lymphocytes % (Manual) Monocytes % Monocytes % (Manual) Eosinophils % Eosinophils % (Manual) Basophils % Basophils % (Manual) Myelocytes % (Man) Promyelocytes % (Man) Blast Cells % (Manual) Nucleated RBC % Metamyelocytes Hypochromia Platelet Estimate Polychromasia Poikilocytosis Anisocytosis Microcytosis Macrocytosis PTT (Actin FS) Sodium Potassium Chloride Carbon Dioxide Anion Gap BUN Creatinine Est GFR (CKD-EPI)AfAm Est GFR (CKD-EPI)NonAf POC Glucometer 203 Random Glucose Calcium Phosphorus Magnesium Total Bilirubin AST ALT Alkaline Phosphatase Total Protein Albumin Urine Myoglobin Hep C Ab Diagnostic ASSESSMENT AND PLAN: Altered Mental Status/Syncope Acute Respiratory Failure Acute on Chronic Renal Failure requiring HD Suspected Septic Shock: (?) PNA (?) GI source Rhabdomyolysis Paroxysmal Atrial Fibrillation r/o GI Bleed HTN Hypercholesterolemia - ID evaluation for ABX coverage - CT Head - HD per renal - IVF - monitor urine output, creatinine - monitor H/H - protonix - rate control - holding anticoagulation for possible GI bleed - Wean trials as tolerated - Continue ICU monitoring Dr Nolan critical care time spent in reviewing chart, evaluating patient and formulating plan 35 min
--- NOTE | 2019-02-20 13:23 | PN.GI ---
GI Progress Note Subjective: No acute events 2100cc in NGT canister: 300cc from the morning No rectal bleeding or melena - Objective Vital Signs: Vital Signs Temperature 98.4 F 02/20/19 10:00 Pulse Rate 78 02/20/19 11:30 Respiratory Rate 30 H 02/20/19 12:10 Blood Pressure 108/55 L 02/20/19 11:30 O2 Sat by Pulse Oximetry (%) 98 02/20/19 11:30 Constitutional: Calm Eyes: No: Sclera Icterus Cardiovascular: Yes: Regular Rate and Rhythm. No: Murmur Respiratory: Yes: Diminished (at bases bilaterally) Gastrointestinal Inspection: Yes: Hernia (reucible umbilical hernia) ...Auscultate: Yes: Hypoactive Bowel Sounds ...Palpate: Yes: Soft. No: Hepatomegaly ...Percussion: No: Tympanitic Edema: No (No LE ) Neurological: Yes: Other (Intubated) Labs: CBC, BMP 02/20/19 06:05 02/20/19 06:05 INR, PTT INR 1.54 (0.83-1.09) H 02/17/19 05:13 Problem List - Problems (1) Coffee ground emesis Assessment/Plan: No overt bleeding. Given copious amount of NGT output from yesterday and relative stability of Hgb, do not think this is a primary GI bleed event. He has hypoactive bowel sounds and an umbilical hernia. ? ileus secondary to systemic process, ? SBO. Patient is going for a CT scan of his head. I have added on a non contrast CT scan of the abdomen and pelvis as well for further evaluation Code(s): K92.0 - HEMATEMESIS
[2019-02-20] MEDS: SODIUM CHLORIDE 0.45% 1,000 ML IV SCH (15:15)
--- NOTE | 2019-02-20 16:00 | PN ---
Physical Exam: SUBJECTIVE: Patient seen and examined on bedside ICU rounds. No overnight events. CT head pending. EGD not indicated at the current time per GI. Patient febrile to 101.5 overnight, given Tylenol and dose of Ceftriaxone, ID consulted this AM. BM this morning. On Norepi 5 and Propofol 10. Responds to commands, cooperative. HD yesterday, making urine, stable H&H, reduced bloody excretions. OBJECTIVE: Vital Signs Period Temp Pulse Resp BP Sys/Verdugo Pulse Ox Last 24 Hr 97.6 F-99.8 F 73-90 15-30 82-133/50-68 93-98 GENERAL: The patient is intubated, sedated, in no acute distress. HEAD: Normal with no signs of trauma. EYES: PERRL, extraocular movements intact, sclera anicteric, conjunctiva clear. No ptosis. ENT: Ears normal, nares patent, oropharynx clear without exudates, moist mucous membranes. NECK: Trachea midline, full range of motion, supple. LUNGS: Breath sounds equal, clear to auscultation bilaterally, no wheezes, no crackles, no accessory muscle use. HEART: Regular rate and rhythm, S1, S2 without murmur, rub or gallop. ABDOMEN: Soft, nontender, nondistended, normoactive bowel sounds, no guarding, no rebound, no masses. EXTREMITIES: 2+ pulses, warm, well-perfused, no edema. NEUROLOGICAL: Moves toes and fingers to command, eyes open and tracking to voice. SKIN: Warm, dry, normal turgor, no rashes or lesions noted. Laboratory Results - last 24 hr 02/17/19 02/18/19 02/19/19 00:36 14:25 16:47 WBC RBC Hgb Hct MCV MCH MCHC RDW Plt Count MPV PTT (Actin FS) Sodium Potassium Chloride Carbon Dioxide Anion Gap BUN Creatinine Est GFR (CKD-EPI)AfAm Est GFR (CKD-EPI)NonAf POC Glucometer 205 Random Glucose Calcium Phosphorus Magnesium Total Bilirubin AST ALT Alkaline Phosphatase Total Protein Albumin Urine Myoglobin 44 H Hep C Ab Diagnostic <0.1 02/19/19 02/20/19 02/20/19 23:11 06:05 06:05 WBC 18.0 H RBC 4.07 Hgb 12.8 Hct 38.9 MCV 95.6 MCH 31.4 MCHC 32.9 RDW 13.8 Plt Count 123 L D MPV 10.1 PTT (Actin FS) 29.8 Sodium Potassium Chloride Carbon Dioxide Anion Gap BUN Creatinine Est GFR (CKD-EPI)AfAm Est GFR (CKD-EPI)NonAf POC Glucometer 188 Random Glucose Calcium Phosphorus Magnesium Total Bilirubin AST ALT Alkaline Phosphatase Total Protein Albumin Urine Myoglobin Hep C Ab Diagnostic 02/20/19 02/20/19 02/20/19 06:05 06:42 13:11 WBC RBC Hgb Hct MCV MCH MCHC RDW Plt Count MPV PTT (Actin FS) Sodium 145 Potassium 4.9 Chloride 105 Carbon Dioxide 31 Anion Gap 9 BUN 109.3 H* Creatinine 4.3 H Est GFR (CKD-EPI)AfAm 15.41 Est GFR (CKD-EPI)NonAf 13.29 POC Glucometer 203 223 Random Glucose 231 H Calcium 8.1 L Phosphorus 6.6 H Magnesium 2.7 H Total Bilirubin 1.7 H AST 27 ALT 26 Alkaline Phosphatase 62 Total Protein 4.9 L Albumin 1.8 L Urine Myoglobin Hep C Ab Diagnostic Active Medications Generic Name Dose Route Start Last Admin Trade Name Freq PRN Reason Stop Dose Admin Calcitriol 0.25 mcg 02/17/19 10:00 02/20/19 09:43 Rocaltrol - PO Not Given DAILY TAVARES Calcium Acetate 667 mg 02/17/19 08:00 02/20/19 13:24 Phoslo - PO 667 mg TIDCM TAVARES Administration Chlorhexidine Gluconate 1 applic 02/17/19 22:00 02/19/19 21:40 Hibiclens For Decolonization - TP 1 applic HS TAVARES Administration Clotrimazole 1 applic 02/17/19 10:00 02/20/19 10:33 Lotrimin 1% Cream - TP 1 applic BID TAVARES Administration Diltiazem HCl 30 mg 02/17/19 14:00 02/20/19 05:53 Cardizem - PO Not Given TID TAVARES Propofol 1,000,000 mcg in 100 mls @ 3.096 mls/hr 02/18/19 08:30 02/20/19 13: 05 Diprivan - IVPB 5 mcg/kg/min TITR TAVARES 3.096 mls/hr Administration Protocol 5 MCG/KG/MIN Sodium Chloride 250 mls @ 3,000 mls/hr 02/18/19 13:39 Normal Saline - IV 02/19/19 13:39 PRN PRN Hypotension during Dialysis Sodium Chloride 1,000 mls @ 75 mls/hr 02/18/19 13:40 02/20/19 15:15 1/2 Normal Saline IV 75 mls/hr ASDIR TAVARES Administration Sodium Chloride 250 mls @ 3,000 mls/hr 02/19/19 08:25 Normal Saline - IV 02/20/19 08:25 PRN PRN Hypotension during Dialysis Ceftriaxone Sodium 1 gm/ 50 mls @ 200 mls/hr 02/19/19 15:00 02/20/19 10:08 Dextrose IVPB 200 mls/hr DAILY TAVARES Administration Protocol Norepinephrine Bitartrate 4, 500 mls @ 37.5 mls/hr 02/20/19 07:30 02/20/19 10 :00 000 mcg/ Dextrose IV 3 mcg/min TITR TAVARES 22.5 mls/hr Titration Protocol 5 MCG/MIN Insulin Aspart 1 vial 02/17/19 22:00 02/20/19 13:23 Novolog Vial Sliding Scale - SQ 4 units ACHS TAVARES Administration Protocol Lamotrigine 100 mg 02/18/19 10:00 02/20/19 09:43 Lamictal - PO Not Given DAILY TAVARES Mupirocin 1 applic 02/17/19 10:00 02/20/19 10:33 Bactroban Ointment (For Decolonization) - NS 02/22/19 09:59 1 applic BID TAVARES Administration Pantoprazole Sodium 40 mg 02/19/19 11:30 02/20/19 10:14 Protonix Iv IVPUSH 40 mg BID TAVARES Administration ASSESSMENT/PLAN: Pt. is a 68 y.o. M w. PMHx. of CKD, DM, HTN, HLD, obesity, bipolar disorder, depression, and anxiety. He was brought in by EMS after being found on the ground in his apartment for an unknown period of time. According to the brother , the patient is normally fully independent and able to complete tasks. The brother reports he last saw the patient about 3 months ago. Progressing appropriately, course complicated by AMS 02/18AM, fever starting 02/19 despite ABX without source. #Neuro - Continued sedation while intubated, until after EGD vs once GI contents aspirated slow - Continue home med Lamotrigine 100mg PO - Repeat head CT pending - NIH 14 on admission - Carotid Doppler: Plaque in RCC bifurcation, no HDS stenosis - Neuro recs: MRI head #GI - Continued coffee ground emesis from OG tube - F/u FOBT - CTAP: No obstruction, rectal impaction with hiatal hernia noticed - Appreciate GI recs, no further indication for EGD given stable H&H, Vitals, low volume mixed emesis - Continue Protonix BID #CVS - AFib with RVR - Vascular consult for ulcers: no need for surgical management at this time, rotate weight bearing areas - Echo: EF 60-65, mild LVH, normal LVSF, small pericardial effusion (<1cm) - Cardio recs: CHADVASC score 2-3, start heparin drip - currently held for probable GIB - Heparin discontinued - Cardizem held because of hypotension #Nephro - BUN/Cr: 205/5--> 87.6/2.6 --> 109.3/4.3 - L Femoral Trialysis catheter placed, pt undergoing HD - UTox: Benzo and Marijuana positive - Chou in place, monitor I/O #Endo - Came in with Glucose 329, Beta Hydroxybutyrate 5.5 -> 1.0, s/p insulin drip-- > now controlled on ISS - Glucose 231 this morning - HbA1c 6.3 #ID - WBC 11.7-->13.1--> 15.8 --> 12.8 - ID consulted, appreciate recs - Increased suspicion for infectious process - febrile to 101.5 overnight without source - F/u BCx - NGTD - Continuing empiric Ceftriaxone, fever while on ABX, considering stepping up coverage, search for source #FEN - 0.45 N/S @ 75 - Monitor electrolytes and replete as needed - NPO except for meds #DVT PE -SCDs -Hold Hep Gtt as Pt. has dark colored emesis #Dispo - Will continue to monitor - Discussed with sister Samia, consent for HD taken from brother in person Visit type - Emergency Visit Emergency Visit: Yes ED Registration Date: 02/16/19 Care time: The patient presented to the Emergency Department on the above date and was hospitalized for further evaluation of their emergent condition. - New Patient This patient is new to me today: Yes Date on this admission: 02/20/19 - Critical Care Critical Care patient: Yes Total Critical Care Time (in minutes): 36 Critical Care Statement: The care of this patient involved high complexity decision making to prevent further life threatening deterioration of the patient 's condition and/or to evaluate & treat vital organ system(s) failure or risk of failure. ATTENDING PHYSICIAN STATEMENT I saw and evaluated the patient. I reviewed the resident's note and discussed the case with the resident. I agree with the resident's findings and plan as documented. SUBJECTIVE: OBJECTIVE: ASSESSMENT AND PLAN:
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
[2019-02-20] MEDS ORDERED: PIPERACILLIN/TAZOB 3.375 GM 3.375 GM in DEXTROSE 5%-WATER - 50 ML IVPB SCH ×2 (16:47→17:00)
[2019-02-20] MEDS ORDERED: PIPERACILLIN/TAZOBACTAM 3.375 GM VIAL IVPB ONE (17:10)
--- NOTE | 2019-02-20 17:53 | PN ---
Progress Note (short form) - Note Progress Note: ID CONSULT DICTATED RESPIRATORY FAILURE BILATERAL PNEUMONIA LEUKOCYTOSIS AZOTEMIA AWAIT C/S EMPIRIC ZOSYN
[2019-02-20] MEDS ORDERED: VANCOMYCIN 1 GRAM (PRE-DOCKED) 1,000 MG/250 ML BAG IVPB ONE (18:15)
--- NOTE | 2019-02-20 19:07 | CONS ---
DATE OF CONSULTATION: 02/20/2019 HISTORY OF PRESENT ILLNESS: The patient is a 68-year-old male who was evaluated for sepsis. History was obtained from the chart. He was admitted to the emergency room on February 16, 2019 after being found on the floor. He was admitted to the emergency room where he was found to be in altered mental status. His hospital course was complicated by hypercapnic respiratory failure. Imaging studies revealed bilateral infiltrates. He was empirically treated with Zosyn. His hospital course has been complicated by leukocytosis and acute renal failure. At the present time, he is not verbally responsive. He is in the Intensive Care Unit. The patient is sedated and is on mechanical ventilation. Cultures are pending. PAST MEDICAL HISTORY: Positive for bva-jofbezh-xanmbhqgu diabetes mellitus, chronic kidney disease, coronary artery disease, morbid obesity, bipolar disorder, hypertension, hyperlipidemia. SOCIAL HISTORY: No documented alcohol or tobacco use. ALLERGIES: No known allergies. MEDICATIONS: Calcitriol, Lotrimin, Cardizem, insulin, Lamictal, Versed, Protonix, Zosyn, propofol. REVIEW OF SYSTEMS: Neurologic: As per HPI. Cardiac: Negative for chest pain or palpitations. Respiratory: As per HPI. Gastrointestinal: Negative for vomiting or diarrhea. Genitourinary: Negative for urinary tract infection. LABORATORY DATA: White count 18.0, hematocrit 38.7, platelets 123, creatinine 3.4. Urinalysis with 3 white cells. Blood and urine cultures are pending. A chest x-ray shows basilar infiltrates. A CT scan of the abdomen and pelvis shows extensive infiltrate at the right base. PHYSICAL EXAMINATION: General: The patient is awake on the ventilator. Vital Signs: Temperature 98.2, T-max 100.6, blood pressure 128/52, pulse 72 and regular, respiratory rate 18 per minute. HEENT: Sclerae anicteric. Heart: Heart sounds S1, S2. Lungs: Air entry bilaterally. Abdomen: Soft and nontender. Extremities: There is 1+ edema. There is excoriation present on the scrotal area as well as the right chest area. IMPRESSION: 1. Respiratory failure. 2. Right lower lobe pneumonia. 3. Leukocytosis. 4. Pxhxn-ky-ycyecur kidney disease. PLAN: 1. Await cultures. 2. Empiric antibiotic coverage with Zosyn adjusted for renal failure. 3. STAT dose of vancomycin. 4. Will follow. Thank you for the kind referral. JESSICA PEREZ M.D. APARNA/[id number]
[2019-02-20 20:08] LABS: HEP B CORE AB, TOT Negative (Negative)
[2019-02-20] MEDS: CHLORHEXIDINE GLUCONATE 4% CLEANSER FOR DECOLONIZATION TP SCH (21:20)
[2019-02-21] MEDS ORDERED: DEXTROSE 5%-WATER - 50 ML IVPB ONE ×3 (03:23→18:28)
[2019-02-21] MEDS ORDERED: PIPERACILLIN/TAZOBACTAM 2.25 GM VIAL IVPB ONE ×3 (03:23→18:28)
[2019-02-21] MEDS: PIPERACILLIN/TAZOB 2.25 GM 2.25 GM in DEXTROSE 5%-WATER - 50 ML IVPB SCH ×3 (04:00→18:52)
[2019-02-21] MEDS: INSULIN SLIDING SCALE (NOVOLOG) 1 VIAL SQ SCH ×4 (06:35→22:32)
[2019-02-21 07:40] LABS: BASO % 0.2 % (0-2.0); EOS % 1.5 % (0-4.5); HEMATOCRIT 34.6 % (35.4-49); HEMOGLOBIN 11.3 GM/dL (11.7-16.9); LYMPH % 2.4 % (8-40); MCH 31.2 pg (25.7-33.7); MCHC 32.6 g/dl (32.0-35.9); MEAN PLT VOLUME 10.5 fl (7.5-11.1); MONO % 2.4 % (3.8-10.2); NEUT % 93.5 % (42.8-82.8); PLATELET COUNT 113 K/MM3 (134-434); RBC 3.61 M/mm3 (4.00-5.60); WHITE BLOOD COUNT 19.2 K/mm3 (4.0-10.0)
--- NOTE | 2019-02-21 07:49 | PN ---
Physical Exam: SUBJECTIVE: Patient seen and examined by the bedside, intubated and sedated. OBJECTIVE: Vital Signs Period Temp Pulse Resp BP Sys/Verdugo Pulse Ox Last 24 Hr 98.2 F-100.7 F 62-90 14-30 97-133/50-60 94-98 GENERAL: The patient is intubated, sedated, in no acute distress. HEAD: Normal with no signs of trauma. EYES: DANIELITO NECK: Trachea midline LUNGS: Breath sounds equal, clear to auscultation bilaterally, no wheezes, no crackles HEART: RRR, no murmurs or rubs ABDOMEN: Soft, nontender, nondistended, normoactive bowel sounds, no guarding, no rebound, no masses. EXTREMITIES: 2+ pulses, warm, well-perfused, no edema. NEUROLOGICAL: Unresponsive, on sedation SKIN: Warm, dry, normal turgor, no rashes or lesions noted. Laboratory Results - last 24 hr 02/18/19 02/20/19 02/20/19 14:25 06:05 13:11 WBC 18.0 H RBC 4.07 Hgb 12.8 Hct 38.9 MCV 95.6 MCH 31.4 MCHC 32.9 RDW 13.8 Plt Count 123 L D MPV 10.1 POC Glucometer 223 Hep A IgM Ab Confirm Negative Hepatitis A Ab Total Negative Hep Bs Antigen Negative Hep Bs Antibody Non reactive Hep B Core Total Ab Negative Hep B Core IgM Ab Negative Hepatitis Be Antibody Negative Hepatitis Be Antigen Negative 02/20/19 02/20/19 02/21/19 16:57 22:07 06:36 WBC RBC Hgb Hct MCV MCH MCHC RDW Plt Count MPV POC Glucometer 177 189 171 Hep A IgM Ab Confirm Hepatitis A Ab Total Hep Bs Antigen Hep Bs Antibody Hep B Core Total Ab Hep B Core IgM Ab Hepatitis Be Antibody Hepatitis Be Antigen Active Medications Generic Name Dose Route Start Last Admin Trade Name Freq PRN Reason Stop Dose Admin Acetaminophen 1,000 mg 02/20/19 21:53 Ofirmev Injection - IVPB Q6H PRN FEVER Calcitriol 0.25 mcg 02/17/19 10:00 02/20/19 09:43 Rocaltrol - PO Not Given DAILY TAVARES Calcium Acetate 667 mg 02/17/19 08:00 02/20/19 17:16 Phoslo - PO 667 mg TIDCM TAVARES Administration Chlorhexidine Gluconate 1 applic 02/17/19 22:00 02/20/19 21:20 Hibiclens For Decolonization - TP 1 applic HS TAVARES Administration Clotrimazole 1 applic 02/17/19 10:00 02/20/19 21:20 Lotrimin 1% Cream - TP 1 applic BID TAVARES Administration Diltiazem HCl 30 mg 02/17/19 14:00 02/20/19 21:20 Cardizem - PO Not Given TID TAVARES Propofol 1,000,000 mcg in 100 mls @ 3.096 mls/hr 02/18/19 08:30 02/20/19 13: 05 Diprivan - IVPB 5 mcg/kg/min TITR TAVARES 3.096 mls/hr Administration Protocol 5 MCG/KG/MIN Sodium Chloride 250 mls @ 3,000 mls/hr 02/18/19 13:39 Normal Saline - IV 02/19/19 13:39 PRN PRN Hypotension during Dialysis Sodium Chloride 1,000 mls @ 75 mls/hr 02/18/19 13:40 02/20/19 15:15 1/2 Normal Saline IV 75 mls/hr ASDIR TAVARES Administration Sodium Chloride 250 mls @ 3,000 mls/hr 02/19/19 08:25 Normal Saline - IV 02/20/19 08:25 PRN PRN Hypotension during Dialysis Norepinephrine Bitartrate 4, 500 mls @ 37.5 mls/hr 02/20/19 07:30 02/20/19 17 :00 000 mcg/ Dextrose IV 2 mcg/min TITR TAVARES 15 mls/hr Titration Protocol 5 MCG/MIN Piperacillin Sod/Tazobactam 50 mls @ 100 mls/hr 02/21/19 02:00 02/21/19 04:00 Sod 2.25 gm/ Dextrose IVPB 100 mls/hr Q8H-IV TAVARES Administration Protocol Insulin Aspart 1 vial 02/17/19 22:00 02/20/19 23:58 Novolog Vial Sliding Scale - SQ 2 units ACHS TAVARES Administration Protocol Lamotrigine 100 mg 02/18/19 10:00 02/20/19 09:43 Lamictal - PO Not Given DAILY TAVARES Mupirocin 1 applic 02/17/19 10:00 02/20/19 21:20 Bactroban Ointment (For Decolonization) - NS 02/22/19 09:59 1 applic BID TAVARES Administration Pantoprazole Sodium 40 mg 02/19/19 11:30 02/20/19 21:20 Protonix Iv IVPUSH 40 mg BID TAVARES Administration ASSESSMENT/PLAN: Pt. is a 68 y.o. M w. PMHx. of CKD, DM, HTN, HLD, obesity, bipolar disorder, depression, and anxiety. He was brought in by EMS after being found on the ground in his apartment for an unknown period of time. According to the brother , the patient is normally fully independent and able to complete tasks. Progressing appropriately, course complicated by AMS 02/18AM, fever starting despite Abx. #Neuro - Consider extubating after HD today - CT Head: No bleed, moderate atrophy, on intracranial pathology - Continue home med Lamotrigine 100mg PO - Carotid Doppler: Plaque in RCC bifurcation, no HDS stenosis - Neuro recs: MRI head #GI - GI recs: Suspect ileus and not primary GI bleed event. Clamped NGT. If no high output, begin to use for meds and feeds - CTAP: No obstruction, rectal impaction with hiatal hernia noticed - Continue Protonix BID #Respiratory - B/L changes persist, mild infiltrate in L base #CVS - AFib with RVR - Heparin held due to bleeding - Vascular consult for ulcers: no need for surgical management at this time, rotate weight bearing areas - Echo: EF 60-65, mild LVH, normal LVSF, small pericardial effusion (<1cm) - Cardio recs: CHADVASC score 2-3, start heparin drip - currently held for probable GIB - Cardizem held because of hypotension #Nephro - HD today - BUN/Cr: 205/5 -> 87.6/2.6 -> 109.3/4.3 -> 11.5/4.3 - L Femoral Trialysis catheter placed 02/18 - UTox: Benzo and Marijuana positive - Chou in place, monitor I/O #Endo - Came in with Glucose 329, Beta Hydroxybutyrate 5.5 -> 1.0, s/p insulin drip-- > now controlled on ISS - HbA1c 6.3 #ID - WBC 11.7->13.1-> 15.8 -> 12.8 -> 19.2 - 101.5 overnight without source - BCx no growth - Ceftriaxone Day 3, Zosyn added as per ID #FEN - 0.45 N/S @ 75 - Monitor electrolytes and replete as needed - NPO except for meds #DVT PE - SCD, holding Heparin due to bleed #Dispo - Will continue to monitor - Discussed with sister Samia, consent for HD taken from brother in person Visit type - Emergency Visit Emergency Visit: Yes ED Registration Date: 02/16/19 Care time: The patient presented to the Emergency Department on the above date and was hospitalized for further evaluation of their emergent condition. - New Patient This patient is new to me today: No - Critical Care Critical Care patient: Yes Total Critical Care Time (in minutes): 38 Critical Care Statement: The care of this patient involved high complexity decision making to prevent further life threatening deterioration of the patient 's condition and/or to evaluate & treat vital organ system(s) failure or risk of failure. ATTENDING PHYSICIAN STATEMENT I saw and evaluated the patient. I reviewed the resident's note and discussed the case with the resident. I agree with the resident's findings and plan as documented. SUBJECTIVE: OBJECTIVE: ASSESSMENT AND PLAN:
[2019-02-21] MEDS: dilTIAZem HCL 30 MG TABLET (FP) PO SCH ×3 (07:56→22:06)
[2019-02-21 08:20] LABS: ALBUMIN 1.6 g/dl (3.4-5.0); BILIRUBIN,TOTAL 1.1 mg/dL (0.2-1); CALCIUM 8.6 mg/dL (8.5-10.1); CREATININE 4.3 mg/dL (0.55-1.3); MAGNESIUM 2.6 mg/dL (1.8-2.4); PHOSPHOROUS 6.5 mg/dL (2.5-4.9); POTASSIUM 4.2 mmol/L (3.5-5.1); TOT PROT 4.8 g/dl (6.4-8.2)
[2019-02-21 08:23] LABS: BLOOD UREA NITROGEN 111.5 mg/dL (7-18)
[2019-02-21] MEDS: NOREPINEPHRINE BITARTRATE 4,000 MCG in DEXTROSE 5%-WATER - 496 ML IV SCH (08:30)
[2019-02-21] MEDS ORDERED: NOREPINEPHRINE BITARTRATE 4 MG/4 ML ML IV ONE (08:35)
--- NOTE | 2019-02-21 08:42 | PN ---
Progress Note (short form) - Note Progress Note: Neurology CHIEF COMPLAINT: CVA PCP: unknown, psychiatrist Dr. Steve Navarro HISTORY OF PRESENT ILLNESS: Mr. Burnette is a 68 y/o man with a pmhx of kidney disease, DM, HTN, HLD, obesity, bipolar disorder, depression, and anxiety who is BIBA after being found down in his apt for an unknown period of time. History obtained from chart as pt was confused on exam and was unable to answer questions. Per the patient's brother, the pt had an appointment with a friend I gave admission and when he did not show up the pt's friend called the police to do a wellness check (the pt did not name the friend). Police found the pt down in his apartment and he was brought to the hospital by EMS, unclear how long the pt was down for. I was contacted by the emergency department for further evaluation as the patient demonstrated an NIH stroke scale of 14. Time of onset was unknown and additionally patient with generalized confusion and weakness more so than just focal deficits and therefore concern for possible underlying toxic metabolic, infectious, diffuse process. CT head without acute changes but there was multiple metabolic derangements on lab work. White blood cell count was 12 on admission. BUN/creatinine was 252//6.2 on admission. WBC, BUN/Cr. trending down. Lastly, blood glucose was 329 on admission, being optimized. Carotid Doppler completed, small-moderate size soft plaque at the right common carotid bifurcation with intimal thickening and minimal plaque buildup on the left without evidence of hemodynamically significant stenosis bilaterally. Brain MRI ordered, not yet completed. Patient under critical care management, remains on mechanical ventilation status post intubation 02/18AM. On sedation and remains on mechanical ventilation. Underlying derangements improving and receiving continued optimization. Repeat head ct compeleted 02/20 - moderate atrophy without gross acute intracranial pathology, chronic sinusitis and right mastoid effusion. Discussed with nurse at bedside, possibly to reduce sedation and evaluate his response. Active Medications Acetaminophen (Ofirmev Injection -) 1,000 mg IVPB Q6H PRN PRN Reason: FEVER Calcitriol (Rocaltrol -) 0.25 mcg PO DAILY [facility] Last Admin: 02/20/19 09:43 Dose: Not Given Calcium Acetate (Phoslo -) 667 mg PO TIDCM [facility] Last Admin: 02/20/19 17:16 Dose: 667 mg Chlorhexidine Gluconate (Hibiclens For Decolonization -) 1 applic TP HS [facility] Last Admin: 02/20/19 21:20 Dose: 1 applic Clotrimazole (Lotrimin 1% Cream -) 1 applic TP BID [facility] Last Admin: 02/20/19 21:20 Dose: 1 applic Diltiazem HCl (Cardizem -) 30 mg PO TID [facility] Last Admin: 02/21/19 07:56 Dose: Not Given Propofol (Diprivan -) 1,000,000 mcg in 100 mls @ 3.096 mls/hr IVPB TITR [facility]; Protocol Last Admin: 02/20/19 13:05 Dose: 5 mcg/kg/min, 3.096 mls/hr Sodium Chloride (Normal Saline -) 250 mls @ 3,000 mls/hr IV PRN PRN PRN Reason: Hypotension during Dialysis Stop: 02/19/19 13:39 Sodium Chloride (1/2 Normal Saline) 1,000 mls @ 75 mls/hr IV ASDIR [facility] Last Admin: 02/20/19 15:15 Dose: 75 mls/hr Sodium Chloride (Normal Saline -) 250 mls @ 3,000 mls/hr IV PRN PRN PRN Reason: Hypotension during Dialysis Stop: 02/20/19 08:25 Norepinephrine Bitartrate 4, (000 mcg/ Dextrose) 500 mls @ 37.5 mls/hr IV TITR [facility]; Protocol Last Titration: 02/20/19 17:00 Dose: 2 mcg/min, 15 mls/hr Piperacillin Sod/Tazobactam (Sod 2.25 gm/ Dextrose) 50 mls @ 100 mls/hr IVPB Q8H-IV [facility]; Protocol Last Admin: 02/21/19 04:00 Dose: 100 mls/hr Insulin Aspart (Novolog Vial Sliding Scale -) 1 vial SQ ACHS [facility]; Protocol Last Admin: 02/21/19 06:35 Dose: 2 units Lamotrigine (Lamictal -) 100 mg PO DAILY [facility] Last Admin: 02/20/19 09:43 Dose: Not Given Mupirocin (Bactroban Ointment (For Decolonization) -) 1 applic NS BID [facility] Stop: 02/22/19 09:59 Last Admin: 02/20/19 21:20 Dose: 1 applic Pantoprazole Sodium (Protonix Iv) 40 mg IVPUSH BID [facility] Last Admin: 02/20/19 21:20 Dose: 40 mg PHYSICAL EXAMINATION Vital Signs Period Temp Pulse Resp BP Sys/Verdugo Pulse Ox Last 24 Hr 98.2 F-100.7 F 61-90 14-30 107-133/50-60 94-98 GENERAL: intubated and sedated HEAD: Normal with no signs of trauma. EYES: Pupils equal, round and reactive to light, extraocular movements intact, sclera anicteric, conjunctiva clear. No lid lag. LUNGS: Breath sounds equal, HEART: Regular rate irregularly irregular rhythm, normal S1 and S2 without murmur. ABDOMEN: Soft, not distended, normoactive bowel sounds, skin breakdown on R side of abdomen with sloughing wounds and ecchymosis, very TTP, guarding, no rebound, no masses, reducible umbilical hernia. UPPER EXTREMITIES: 2+ pulses, warm, well-perfused. No cyanosis. No clubbing. No peripheral edema. Cuts on bilateral elbows LOWER EXTREMITIES: 2+ pulses, warm, well-perfused. No calf tenderness. No peripheral edema. NEUROLOGICAL: intuabted, response to voice, not moving extremities to command, response to pain PSYCHIATRIC: Cooperative. poor eye contact. SKIN: +pressure ulcer to the right hip, skin breakdown to the right side of the abdomen, Abrasions to the right side of the face. Warm and dry. CBCD WBC 19.2 K/mm3 (4.0-10.0) H 02/21/19 06:15 RBC 3.61 M/mm3 (4.00-5.60) L 02/21/19 06:15 Hgb 11.3 GM/dL (11.7-16.9) L 02/21/19 06:15 Hct 34.6 % (35.4-49) L 02/21/19 06:15 MCV 96.0 fl (80-96) 02/21/19 06:15 MCHC 32.6 g/dl (32.0-35.9) 02/21/19 06:15 RDW 14.0 % (11.9-15.9) 02/21/19 06:15 Plt Count 113 K/MM3 (134-434) L 02/21/19 06:15 MPV 10.5 fl (7.5-11.1) 02/21/19 06:15 CMP Sodium 145 mmol/L (136-145) 02/21/19 06:15 Potassium 4.2 mmol/L (3.5-5.1) 02/21/19 06:15 Chloride 104 mmol/L (98-107) 02/21/19 06:15 Carbon Dioxide 31 mmol/L (21-32) 02/21/19 06:15 Anion Gap 9 MMOL/L (8-16) 02/21/19 06:15 BUN 111.5 mg/dL (7-18) H* 02/21/19 06:15 Creatinine 4.3 mg/dL (0.55-1.3) H 02/21/19 06:15 Random Glucose 166 mg/dL (74-106) H 02/21/19 06:15 Calcium 8.6 mg/dL (8.5-10.1) 02/21/19 06:15 Total Bilirubin 1.1 mg/dL (0.2-1) H 02/21/19 06:15 AST 28 U/L (15-37) 02/21/19 06:15 ALT 23 U/L (13-61) 02/21/19 06:15 Alkaline Phosphatase 63 U/L (45-117) 02/21/19 06:15 Total Protein 4.8 g/dl (6.4-8.2) L 02/21/19 06:15 Albumin 1.6 g/dl (3.4-5.0) L 02/21/19 06:15 CARDIAC ENZYMES Creatine Kinase 950 U/L (26-308) H 02/17/19 16:15 Troponin I 0.04 ng/ml (0.00-0.05) 02/17/19 16:15 ASSESSMENT/PLAN: Mr. Burnette is a 68 y/o man with a pmhx of kidney disease, DM, HTN, HLD, obesity , bipolar disorder, depression, and anxiety who is BIBA after being found down in his apt for an unknown period of time. History obtained from chart as pt was confused on exam and was unable to answer questions. Per the patient's brother, the pt had an appointment with a friend I gave admission and when he did not show up the pt's friend called the police to do a wellness check (the pt did not name the friend). Police found the pt down in his apartment and he was brought to the hospital by EMS, unclear how long the pt was down for. Per the patient's brother, the pt is normally fully independent and able to complete all his ADLs unassisted. He lives alone in an apartment in [facility] and per the brother the pt keeps up with all his doctor appointments and takes his medications as prescribed. The pt's brother was unable to state what medicines his brother uses or which pharmacy his brother uses however states that his brother's psychiatrist is Dr. Steve Navarro and that he may know the answers to these questions. The brother reports he last saw the patient about 3 months ago. I was contacted by the emergency department for further evaluation as the patient demonstrated an NIH stroke scale of 14. Time of onset was unknown and additionally patient with generalized confusion and weakness more so than just focal deficits and therefore concern for possible underlying toxic metabolic, infectious, diffuse process. CT head without acute changes but there was multiple metabolic derangements on lab work. White blood cell count was 12 on admission. BUN/creatinine was 252//6.2 on admission. WBC, BUN/Cr. trending down. Lastly, blood glucose was 329 on admission, continues to be optimized. Carotid Doppler completed, small-moderate yesenia soft plaque at the right common carotid bifurcation with intimal thickening and minimal plaque buildup on the left without evidence of hemodynamically significant stenosis bilaterally. Would benefit from MRI brain to rule out CVA this seems more to be a diffuse generalized process and requires further medical optimization. Brain MRI ordered , not yet completed. Patient under critical care management, remains on mechanical ventilation status post intubation . Patient under critical care management, remains on mechanical ventilation status post intubation . On sedation and remains on mechanical ventilation. Underlying derangements improving and receiving continued optimization. Repeat head ct compeleted 02/20 - moderate atrophy without gross acute intracranial pathology , chronic sinusitis and right mastoid effusion. Discussed with nurse at bedside , possibly to reduce sedation and evaluate his response. Diabetic ketoacidosis, monitor glucose, maintain euglycemic range. Monitor electrolytes, follow-up recommendations from nephrology, IV hydration as tolerated, correct derangments. Monitor blood pressure, maintain less than 140/90. Follow up cultures. Wound care. Continue ICU level of monitoring. Critical care time 35 mins.
[2019-02-21] MEDS: CLOTRIMAZOLE 1% CREAM 15 GM TUBE TP SCH ×2 (10:20→22:31)
[2019-02-21] MEDS: MUPIROCIN 2% TOPICAL OINTMENT FOR DECOLONIZATION NS SCH ×2 (10:20→22:31)
[2019-02-21] MEDS: CALCIUM ACETATE 667 MG CAPSULE (FP) PO SCH ×3 (10:22→18:52)
[2019-02-21] MEDS: CALCITRIOL 0.25 MCG CAPSULE (FP) PO SCH (10:23)
[2019-02-21] MEDS: lamoTRIgine 100 MG TABLET (FP) PO SCH (10:23)
[2019-02-21] MEDS: PANTOPRAZOLE SODIUM 40 MG VIAL IVPUSH SCH ×2 (10:23→22:32)
[2019-02-21 10:45] LABS: ANISOCYTOSIS 0; MACROCYTOSIS 0; PLATELET ESTIMATE DECREASED
[2019-02-21] MEDS ORDERED: SODIUM CHLORIDE 250 ML IV PRN ×2 (11:00→16:14)
--- NOTE | 2019-02-21 11:48 | PN ---
Teaching Attending Note Name of Resident: Hollis Floyd ATTENDING PHYSICIAN STATEMENT I saw and evaluated the patient. I reviewed the resident's note and discussed the case with the resident. I agree with the resident's findings and plan as documented. SUBJECTIVE: Patient seen and examined in the ICU. Remains intubated and sedated. AC Mode of vent. Low grade temperature overnight. OBJECTIVE: Intake & Output 02/18/19 02/19/19 02/20/19 02/21/19 23:59 23:59 23:59 23:59 Intake Total 2516.4 3000.7 2008 Output Total 2750 2000 2230 Balance -233.6 1000.7 -222 Weight 227 lb 223 lb 6.4 oz Last Vital Signs Temp Pulse Resp BP Pulse Ox 98.6 F 66 18 132/58 L 97 02/21/19 08:00 02/21/19 08:00 02/21/19 09:00 02/21/19 08:00 02/21/19 04:13 Active Medications Acetaminophen (Ofirmev Injection -) 1,000 mg IVPB Q6H PRN PRN Reason: FEVER Calcitriol (Rocaltrol -) 0.25 mcg PO DAILY [facility] Last Admin: 02/21/19 10:23 Dose: Not Given Calcium Acetate (Phoslo -) 667 mg PO TIDCM [facility] Last Admin: 02/21/19 10:22 Dose: Not Given Chlorhexidine Gluconate (Hibiclens For Decolonization -) 1 applic TP HS [facility] Last Admin: 02/20/19 21:20 Dose: 1 applic Clotrimazole (Lotrimin 1% Cream -) 1 applic TP BID [facility] Last Admin: 02/21/19 10:20 Dose: 1 applic Diltiazem HCl (Cardizem -) 30 mg PO TID [facility] Last Admin: 02/21/19 07:56 Dose: Not Given Propofol (Diprivan -) 1,000,000 mcg in 100 mls @ 3.096 mls/hr IVPB TITR [facility]; Protocol Last Admin: 02/20/19 13:05 Dose: 5 mcg/kg/min, 3.096 mls/hr Sodium Chloride (1/2 Normal Saline) 1,000 mls @ 75 mls/hr IV ASDIR [facility] Last Admin: 02/20/19 15:15 Dose: 75 mls/hr Norepinephrine Bitartrate 4, (000 mcg/ Dextrose) 500 mls @ 37.5 mls/hr IV TITR [facility]; Protocol Last Titration: 02/20/19 17:00 Dose: 2 mcg/min, 15 mls/hr Piperacillin Sod/Tazobactam (Sod 2.25 gm/ Dextrose) 50 mls @ 100 mls/hr IVPB Q8H-IV [facility]; Protocol Last Admin: 02/21/19 10:23 Dose: 100 mls/hr Sodium Chloride (Normal Saline -) 250 mls @ 3,000 mls/hr IV PRN PRN PRN Reason: Hypotension during Dialysis Stop: 02/22/19 11:00 Insulin Aspart (Novolog Vial Sliding Scale -) 1 vial SQ ACHS [facility]; Protocol Last Admin: 02/21/19 06:35 Dose: 2 units Lamotrigine (Lamictal -) 100 mg PO DAILY [facility] Last Admin: 02/21/19 10:23 Dose: Not Given Mupirocin (Bactroban Ointment (For Decolonization) -) 1 applic NS BID [facility] Stop: 02/22/19 09:59 Last Admin: 02/21/19 10:20 Dose: 1 applic Pantoprazole Sodium (Protonix Iv) 40 mg IVPUSH BID [facility] Last Admin: 02/21/19 10:23 Dose: 40 mg Gen: intubated, sedated Heart: RRR Lung: Coarse rhonchi / crackles bases, Right > Left; no wheeze Abd: soft, non-distended, (+) BS Ext: no edema Laboratory Results - last 24 hr 02/18/19 02/20/19 02/20/19 14:25 13:11 16:57 WBC RBC Hgb Hct MCV MCH MCHC RDW Plt Count MPV Absolute Neuts (auto) Neutrophils % Neutrophils % (Manual) Band Neutrophils % Lymphocytes % Lymphocytes % (Manual) Monocytes % Monocytes % (Manual) Eosinophils % Eosinophils % (Manual) Basophils % Basophils % (Manual) Myelocytes % (Man) Promyelocytes % (Man) Blast Cells % (Manual) Nucleated RBC % Metamyelocytes Hypochromia Platelet Estimate Polychromasia Poikilocytosis Anisocytosis Microcytosis Macrocytosis PTT (Actin FS) Sodium Potassium Chloride Carbon Dioxide Anion Gap BUN Creatinine Est GFR (CKD-EPI)AfAm Est GFR (CKD-EPI)NonAf POC Glucometer 223 177 Random Glucose Calcium Phosphorus Magnesium Total Bilirubin AST ALT Alkaline Phosphatase Total Protein Albumin Hep A IgM Ab Confirm Negative Hepatitis A Ab Total Negative Hep Bs Antigen Negative Hep Bs Antibody Non reactive Hep B Core Total Ab Negative Hep B Core IgM Ab Negative Hepatitis Be Antibody Negative Hepatitis Be Antigen Negative 02/20/19 02/21/19 02/21/19 22:07 06:15 06:15 WBC 19.2 H RBC 3.61 L Hgb 11.3 L Hct 34.6 L MCV 96.0 MCH 31.2 MCHC 32.6 RDW 14.0 Plt Count 113 L MPV 10.5 Absolute Neuts (auto) 17.9 H Neutrophils % 93.5 H Neutrophils % (Manual) 93.0 H Band Neutrophils % 2.0 Lymphocytes % 2.4 L Lymphocytes % (Manual) 2.0 L D Monocytes % 2.4 L Monocytes % (Manual) 1 L D Eosinophils % 1.5 D Eosinophils % (Manual) 2.0 D Basophils % 0.2 Basophils % (Manual) 0.0 Myelocytes % (Man) 0 Promyelocytes % (Man) 0 Blast Cells % (Manual) 0 Nucleated RBC % 0 Metamyelocytes 0 D Hypochromia 0 Platelet Estimate Decreased Polychromasia 0 Poikilocytosis 1+ Anisocytosis 0 Microcytosis 0 Macrocytosis 0 PTT (Actin FS) 29.9 Sodium Potassium Chloride Carbon Dioxide Anion Gap BUN Creatinine Est GFR (CKD-EPI)AfAm Est GFR (CKD-EPI)NonAf POC Glucometer 189 Random Glucose Calcium Phosphorus Magnesium Total Bilirubin AST ALT Alkaline Phosphatase Total Protein Albumin Hep A IgM Ab Confirm Hepatitis A Ab Total Hep Bs Antigen Hep Bs Antibody Hep B Core Total Ab Hep B Core IgM Ab Hepatitis Be Antibody Hepatitis Be Antigen 02/21/19 02/21/19 02/21/19 06:15 06:36 11:18 WBC RBC Hgb Hct MCV MCH MCHC RDW Plt Count MPV Absolute Neuts (auto) Neutrophils % Neutrophils % (Manual) Band Neutrophils % Lymphocytes % Lymphocytes % (Manual) Monocytes % Monocytes % (Manual) Eosinophils % Eosinophils % (Manual) Basophils % Basophils % (Manual) Myelocytes % (Man) Promyelocytes % (Man) Blast Cells % (Manual) Nucleated RBC % Metamyelocytes Hypochromia Platelet Estimate Polychromasia Poikilocytosis Anisocytosis Microcytosis Macrocytosis PTT (Actin FS) Sodium 145 Potassium 4.2 Chloride 104 Carbon Dioxide 31 Anion Gap 9 BUN 111.5 H* Creatinine 4.3 H Est GFR (CKD-EPI)AfAm 15.41 Est GFR (CKD-EPI)NonAf 13.29 POC Glucometer 171 158 Random Glucose 166 H Calcium 8.6 Phosphorus 6.5 H Magnesium 2.6 H Total Bilirubin 1.1 H AST 28 ALT 23 Alkaline Phosphatase 63 Total Protein 4.8 L Albumin 1.6 L Hep A IgM Ab Confirm Hepatitis A Ab Total Hep Bs Antigen Hep Bs Antibody Hep B Core Total Ab Hep B Core IgM Ab Hepatitis Be Antibody Hepatitis Be Antigen ASSESSMENT AND PLAN: Altered Mental Status/Syncope Acute Respiratory Failure Acute on Chronic Renal Failure requiring HD Suspected Septic Shock: (?) PNA (?) GI source Rhabdomyolysis Paroxysmal Atrial Fibrillation r/o GI Bleed HTN Hypercholesterolemia - ABX per ID - HD per renal - IVF - monitor urine output, creatinine - monitor H/H - protonix - rate control - Holding anticoagulation for possible GI bleed - Decrease sedation and wean trials as tolerated - Required continued ICU monitoring Dr Nolan Critical care time spent in reviewing chart, evaluating patient and formulating plan 35 min
--- NOTE | 2019-02-21 12:33 | PN ---
Progress Note, Physician History of Present Illness: SEDATED ON VENTILATOR LOW GRADE TEMP WBC ELEVATED - Current Medication List Current Medications: Active Medications Acetaminophen (Ofirmev Injection -) 1,000 mg IVPB Q6H PRN PRN Reason: FEVER Calcitriol (Rocaltrol -) 0.25 mcg PO DAILY [facility] Last Admin: 02/21/19 10:23 Dose: Not Given Calcium Acetate (Phoslo -) 667 mg PO TIDCM [facility] Last Admin: 02/21/19 10:22 Dose: Not Given Chlorhexidine Gluconate (Hibiclens For Decolonization -) 1 applic TP HS [facility] Last Admin: 02/20/19 21:20 Dose: 1 applic Clotrimazole (Lotrimin 1% Cream -) 1 applic TP BID [facility] Last Admin: 02/21/19 10:20 Dose: 1 applic Diltiazem HCl (Cardizem -) 30 mg PO TID [facility] Last Admin: 02/21/19 07:56 Dose: Not Given Propofol (Diprivan -) 1,000,000 mcg in 100 mls @ 3.096 mls/hr IVPB TITR [facility]; Protocol Last Admin: 02/20/19 13:05 Dose: 5 mcg/kg/min, 3.096 mls/hr Sodium Chloride (1/2 Normal Saline) 1,000 mls @ 75 mls/hr IV ASDIR [facility] Last Admin: 02/20/19 15:15 Dose: 75 mls/hr Norepinephrine Bitartrate 4, (000 mcg/ Dextrose) 500 mls @ 37.5 mls/hr IV TITR [facility]; Protocol Last Titration: 02/20/19 17:00 Dose: 2 mcg/min, 15 mls/hr Piperacillin Sod/Tazobactam (Sod 2.25 gm/ Dextrose) 50 mls @ 100 mls/hr IVPB Q8H-IV [facility]; Protocol Last Admin: 02/21/19 10:23 Dose: 100 mls/hr Sodium Chloride (Normal Saline -) 250 mls @ 3,000 mls/hr IV PRN PRN PRN Reason: Hypotension during Dialysis Stop: 02/22/19 11:00 Insulin Aspart (Novolog Vial Sliding Scale -) 1 vial SQ ACHS [facility]; Protocol Last Admin: 02/21/19 06:35 Dose: 2 units Lamotrigine (Lamictal -) 100 mg PO DAILY [facility] Last Admin: 02/21/19 10:23 Dose: Not Given Mupirocin (Bactroban Ointment (For Decolonization) -) 1 applic NS BID [facility] Stop: 02/22/19 09:59 Last Admin: 02/21/19 10:20 Dose: 1 applic Pantoprazole Sodium (Protonix Iv) 40 mg IVPUSH BID [facility] Last Admin: 02/21/19 10:23 Dose: 40 mg - Objective Vital Signs: Vital Signs Temperature 98.6 F 02/21/19 12:00 Pulse Rate 66 02/21/19 12:00 Respiratory Rate 18 02/21/19 12:14 Blood Pressure 117/56 L 02/21/19 12:00 O2 Sat by Pulse Oximetry (%) 97 02/21/19 04:13 Constitutional: Yes: No Distress Eyes: Yes: Conjunctiva Clear Cardiovascular: Yes: Regular Rate and Rhythm, S1, S2 Respiratory: Yes: Mechanically Ventilated Gastrointestinal: Yes: Normal Bowel Sounds, Soft. No: Tenderness Labs: CBC, BMP 02/21/19 06:15 02/21/19 06:15 INR, PTT INR 1.54 (0.83-1.09) H 02/17/19 05:13 Assessment/Plan RESPIRATORY FAILURE PNEUMONIA ?CVA LEUKOCYTOSIS RENAL FAILURE CONTINUE VENTILATORY/ HEMODYNAMIC SUPPORT EMPIRIC ZOSYN
--- NOTE | 2019-02-21 13:12 | PN.GI ---
GI Progress Note Subjective: 300cc output from nightshit CT scan unrevealing No overt bleeding NGT flushed. Just got back what I put in - Objective Vital Signs: Vital Signs Temperature 98.6 F 02/21/19 12:00 Pulse Rate 66 02/21/19 12:00 Respiratory Rate 18 02/21/19 12:14 Blood Pressure 117/56 L 02/21/19 12:00 O2 Sat by Pulse Oximetry (%) 97 02/21/19 04:13 Constitutional: Calm Eyes: No: Sclera Icterus Cardiovascular: Yes: Regular Rate and Rhythm Respiratory: Yes: Diminished (At bases bilaterally) Gastrointestinal Inspection: No: Distention ...Auscultate: Yes: Normoactive Bowel Sounds ...Palpate: No: Tenderness (No grimacing upon palpation) ...Percussion: No: Tympanitic Neurological: Yes: Other (Intubated) Labs: CBC, BMP 02/21/19 06:15 02/21/19 06:15 INR, PTT INR 1.54 (0.83-1.09) H 02/17/19 05:13 - ....Imaging Cat Scan: Report Reviewed, Image Reviewed Problem List - Problems (1) Coffee ground emesis Assessment/Plan: Suspect ileus and not primary GI bleed event Clamped NGT. If no high output, begin to use for meds and feeds Code(s): K92.0 - HEMATEMESIS
--- NOTE | 2019-02-21 13:13 | PN ---
Progress Note, Physician History of Present Illness: Pt seen and examined at bedside. He remains in the ICU. He remains intubated. - Current Medication List Current Medications: Active Medications Acetaminophen (Ofirmev Injection -) 1,000 mg IVPB Q6H PRN PRN Reason: FEVER Calcitriol (Rocaltrol -) 0.25 mcg PO DAILY [facility] Last Admin: 02/21/19 10:23 Dose: Not Given Calcium Acetate (Phoslo -) 667 mg PO TIDCM [facility] Last Admin: 02/21/19 10:22 Dose: Not Given Chlorhexidine Gluconate (Hibiclens For Decolonization -) 1 applic TP HS [facility] Last Admin: 02/20/19 21:20 Dose: 1 applic Clotrimazole (Lotrimin 1% Cream -) 1 applic TP BID [facility] Last Admin: 02/21/19 10:20 Dose: 1 applic Diltiazem HCl (Cardizem -) 30 mg PO TID [facility] Last Admin: 02/21/19 07:56 Dose: Not Given Propofol (Diprivan -) 1,000,000 mcg in 100 mls @ 3.096 mls/hr IVPB TITR [facility]; Protocol Last Admin: 02/20/19 13:05 Dose: 5 mcg/kg/min, 3.096 mls/hr Sodium Chloride (1/2 Normal Saline) 1,000 mls @ 75 mls/hr IV ASDIR [facility] Last Admin: 02/20/19 15:15 Dose: 75 mls/hr Norepinephrine Bitartrate 4, (000 mcg/ Dextrose) 500 mls @ 37.5 mls/hr IV TITR [facility]; Protocol Last Titration: 02/20/19 17:00 Dose: 2 mcg/min, 15 mls/hr Piperacillin Sod/Tazobactam (Sod 2.25 gm/ Dextrose) 50 mls @ 100 mls/hr IVPB Q8H-IV [facility]; Protocol Last Admin: 02/21/19 10:23 Dose: 100 mls/hr Sodium Chloride (Normal Saline -) 250 mls @ 3,000 mls/hr IV PRN PRN PRN Reason: Hypotension during Dialysis Stop: 02/22/19 11:00 Insulin Aspart (Novolog Vial Sliding Scale -) 1 vial SQ ACHS [facility]; Protocol Last Admin: 02/21/19 06:35 Dose: 2 units Lamotrigine (Lamictal -) 100 mg PO DAILY [facility] Last Admin: 02/21/19 10:23 Dose: Not Given Mupirocin (Bactroban Ointment (For Decolonization) -) 1 applic NS BID [facility] Stop: 02/22/19 09:59 Last Admin: 02/21/19 10:20 Dose: 1 applic Pantoprazole Sodium (Protonix Iv) 40 mg IVPUSH BID [facility] Last Admin: 02/21/19 10:23 Dose: 40 mg - Objective Vital Signs: Vital Signs Temperature 98.6 F 02/21/19 12:00 Pulse Rate 66 02/21/19 12:00 Respiratory Rate 18 02/21/19 12:14 Blood Pressure 117/56 L 02/21/19 12:00 O2 Sat by Pulse Oximetry (%) 97 02/21/19 04:13 Constitutional: Yes: Calm Eyes: Yes: Conjunctiva Clear HENT: Yes: Atraumatic Neck: Yes: Supple Cardiovascular: Yes: S1, S2 Respiratory: Yes: Intubated, Mechanically Ventilated Gastrointestinal: Yes: Soft Genitourinary: Yes: Chou Present Musculoskeletal: Yes: Muscle Weakness Edema: No Neurological: Yes: Other (responds to verbal stimuli) Labs: CBC, BMP 02/21/19 06:15 02/21/19 06:15 INR, PTT INR 1.54 (0.83-1.09) H 02/17/19 05:13 Assessment/Plan Current Medications Generic Name Dose Route Start Last Admin Trade Name Freq PRN Reason Stop Dose Admin Acetaminophen 1,000 mg 02/20/19 21:53 Ofirmev Injection - IVPB Q6H PRN FEVER Calcitriol 0.25 mcg 02/17/19 10:00 02/21/19 10:23 Rocaltrol - PO Not Given DAILY [facility] Calcium Acetate 667 mg 02/17/19 08:00 02/21/19 10:22 Phoslo - PO Not Given TIDCM [facility] Chlorhexidine Gluconate 1 applic 02/17/19 22:00 02/20/19 21:20 Hibiclens For Decolonization - TP 1 applic HS [facility] Administration Clotrimazole 1 applic 02/17/19 10:00 02/21/19 10:20 Lotrimin 1% Cream - TP 1 applic BID [facility] Administration Diltiazem HCl 30 mg 02/17/19 14:00 02/21/19 07:56 Cardizem - PO Not Given TID [facility] Propofol 1,000,000 mcg in 100 mls @ 3.096 mls/hr 02/18/19 08:30 02/20/19 13: 05 Diprivan - IVPB 5 mcg/kg/min TITR [facility] 3.096 mls/hr Administration Protocol 5 MCG/KG/MIN Sodium Chloride 1,000 mls @ 75 mls/hr 02/18/19 13:40 02/20/19 15:15 1/2 Normal Saline IV 75 mls/hr ASDIR [facility] Administration Norepinephrine Bitartrate 4, 500 mls @ 37.5 mls/hr 02/20/19 07:30 02/20/19 17 :00 000 mcg/ Dextrose IV 2 mcg/min TITR [facility] 15 mls/hr Titration Protocol 5 MCG/MIN Piperacillin Sod/Tazobactam 50 mls @ 100 mls/hr 02/21/19 02:00 02/21/19 10:23 Sod 2.25 gm/ Dextrose IVPB 100 mls/hr Q8H-IV [facility] Administration Protocol Sodium Chloride 250 mls @ 3,000 mls/hr 02/21/19 11:00 Normal Saline - IV 02/22/19 11:00 PRN PRN Hypotension during Dialysis Insulin Aspart 1 vial 02/17/19 22:00 02/21/19 06:35 Novolog Vial Sliding Scale - SQ 2 units ACHS [facility] Administration Protocol Lamotrigine 100 mg 02/18/19 10:00 02/21/19 10:23 Lamictal - PO Not Given DAILY [facility] Mupirocin 1 applic 02/17/19 10:00 02/21/19 10:20 Bactroban Ointment (For Decolonization) - NS 02/22/19 09:59 1 applic BID [facility] Administration Pantoprazole Sodium 40 mg 02/19/19 11:30 02/21/19 10:23 Protonix Iv IVPUSH 40 mg BID [facility] Administration Impression 1. SMITA 2. rhabdo 3. dka 4. altered mental status 5. hyperkalemia 6. resp failure Plan - HD today - monitor urine output - will likely be extubated today, discussed with ICU - follow serologies - weaning per pulmonary - monitor bp
[2019-02-21] MEDS: PROPOFOL 1,000,000 MCG/100 ML VIAL IVPB SCH (15:00)
--- NOTE | 2019-02-21 16:09 | PN ---
Physical Exam: SUBJECTIVE: Patient seen and examined in the morning. No acute events overnight. Patient sedated and intubated, with norephinephrine drip, unable to communicate with examiner. OBJECTIVE: Vital Signs Period Temp Pulse Resp BP Sys/Verdugo Pulse Ox Last 24 Hr 98.4 F-100.7 F 61-80 14-21 103-132/50-58 97-98 GENERAL: The patient is sedated on propofol drip. HEAD: Normal with no signs of trauma. LUNGS: Ventilator breath sounds equal b/l HEART: Regular rate and rhythm, S1, S2. ABDOMEN: Soft, tender to palpation in abdomen. EXTREMITIES: 2+ pulses, no edema. PSYCH: Normal mood, normal affect. SKIN: Warm, dry, normal turgor, no rashes or lesions noted Laboratory Results - last 24 hr 02/18/19 02/20/19 02/20/19 14:25 16:57 22:07 WBC RBC Hgb Hct MCV MCH MCHC RDW Plt Count MPV Absolute Neuts (auto) Neutrophils % Neutrophils % (Manual) Band Neutrophils % Lymphocytes % Lymphocytes % (Manual) Monocytes % Monocytes % (Manual) Eosinophils % Eosinophils % (Manual) Basophils % Basophils % (Manual) Myelocytes % (Man) Promyelocytes % (Man) Blast Cells % (Manual) Nucleated RBC % Metamyelocytes Hypochromia Platelet Estimate Polychromasia Poikilocytosis Anisocytosis Microcytosis Macrocytosis PTT (Actin FS) Sodium Potassium Chloride Carbon Dioxide Anion Gap BUN Creatinine Est GFR (CKD-EPI)AfAm Est GFR (CKD-EPI)NonAf POC Glucometer 177 189 Random Glucose Calcium Phosphorus Magnesium Total Bilirubin AST ALT Alkaline Phosphatase Total Protein Albumin Hep A IgM Ab Confirm Negative Hepatitis A Ab Total Negative Hep Bs Antigen Negative Hep Bs Antibody Non reactive Hep B Core Total Ab Negative Hep B Core IgM Ab Negative Hepatitis Be Antibody Negative Hepatitis Be Antigen Negative 02/21/19 02/21/19 02/21/19 06:15 06:15 06:15 WBC 19.2 H RBC 3.61 L Hgb 11.3 L Hct 34.6 L MCV 96.0 MCH 31.2 MCHC 32.6 RDW 14.0 Plt Count 113 L MPV 10.5 Absolute Neuts (auto) 17.9 H Neutrophils % 93.5 H Neutrophils % (Manual) 93.0 H Band Neutrophils % 2.0 Lymphocytes % 2.4 L Lymphocytes % (Manual) 2.0 L D Monocytes % 2.4 L Monocytes % (Manual) 1 L D Eosinophils % 1.5 D Eosinophils % (Manual) 2.0 D Basophils % 0.2 Basophils % (Manual) 0.0 Myelocytes % (Man) 0 Promyelocytes % (Man) 0 Blast Cells % (Manual) 0 Nucleated RBC % 0 Metamyelocytes 0 D Hypochromia 0 Platelet Estimate Decreased Polychromasia 0 Poikilocytosis 1+ Anisocytosis 0 Microcytosis 0 Macrocytosis 0 PTT (Actin FS) 29.9 Sodium 145 Potassium 4.2 Chloride 104 Carbon Dioxide 31 Anion Gap 9 BUN 111.5 H* Creatinine 4.3 H Est GFR (CKD-EPI)AfAm 15.41 Est GFR (CKD-EPI)NonAf 13.29 POC Glucometer Random Glucose 166 H Calcium 8.6 Phosphorus 6.5 H Magnesium 2.6 H Total Bilirubin 1.1 H AST 28 ALT 23 Alkaline Phosphatase 63 Total Protein 4.8 L Albumin 1.6 L Hep A IgM Ab Confirm Hepatitis A Ab Total Hep Bs Antigen Hep Bs Antibody Hep B Core Total Ab Hep B Core IgM Ab Hepatitis Be Antibody Hepatitis Be Antigen 02/21/19 02/21/19 06:36 11:18 WBC RBC Hgb Hct MCV MCH MCHC RDW Plt Count MPV Absolute Neuts (auto) Neutrophils % Neutrophils % (Manual) Band Neutrophils % Lymphocytes % Lymphocytes % (Manual) Monocytes % Monocytes % (Manual) Eosinophils % Eosinophils % (Manual) Basophils % Basophils % (Manual) Myelocytes % (Man) Promyelocytes % (Man) Blast Cells % (Manual) Nucleated RBC % Metamyelocytes Hypochromia Platelet Estimate Polychromasia Poikilocytosis Anisocytosis Microcytosis Macrocytosis PTT (Actin FS) Sodium Potassium Chloride Carbon Dioxide Anion Gap BUN Creatinine Est GFR (CKD-EPI)AfAm Est GFR (CKD-EPI)NonAf POC Glucometer 171 158 Random Glucose Calcium Phosphorus Magnesium Total Bilirubin AST ALT Alkaline Phosphatase Total Protein Albumin Hep A IgM Ab Confirm Hepatitis A Ab Total Hep Bs Antigen Hep Bs Antibody Hep B Core Total Ab Hep B Core IgM Ab Hepatitis Be Antibody Hepatitis Be Antigen Active Medications Generic Name Dose Route Start Last Admin Trade Name Freq PRN Reason Stop Dose Admin Acetaminophen 1,000 mg 02/20/19 21:53 Ofirmev Injection - IVPB Q6H PRN FEVER Calcitriol 0.25 mcg 02/17/19 10:00 02/21/19 10:23 Rocaltrol - PO Not Given DAILY [facility] Calcium Acetate 667 mg 02/17/19 08:00 02/21/19 13:16 Phoslo - PO 667 mg TIDCM [facility] Administration Chlorhexidine Gluconate 1 applic 02/17/19 22:00 02/20/19 21:20 Hibiclens For Decolonization - TP 1 applic HS [facility] Administration Clotrimazole 1 applic 02/17/19 10:00 02/21/19 10:20 Lotrimin 1% Cream - TP 1 applic BID [facility] Administration Diltiazem HCl 30 mg 02/17/19 14:00 02/21/19 07:56 Cardizem - PO Not Given TID [facility] Propofol 1,000,000 mcg in 100 mls @ 3.096 mls/hr 02/18/19 08:30 02/20/19 13: 05 Diprivan - IVPB 5 mcg/kg/min TITR [facility] 3.096 mls/hr Administration Protocol 5 MCG/KG/MIN Sodium Chloride 1,000 mls @ 75 mls/hr 02/18/19 13:40 02/20/19 15:15 1/2 Normal Saline IV 75 mls/hr ASDIR [facility] Administration Norepinephrine Bitartrate 4, 500 mls @ 37.5 mls/hr 02/20/19 07:30 02/20/19 17 :00 000 mcg/ Dextrose IV 2 mcg/min TITR [facility] 15 mls/hr Titration Protocol 5 MCG/MIN Piperacillin Sod/Tazobactam 50 mls @ 100 mls/hr 02/21/19 02:00 02/21/19 10:23 Sod 2.25 gm/ Dextrose IVPB 100 mls/hr Q8H-IV [facility] Administration Protocol Sodium Chloride 250 mls @ 3,000 mls/hr 02/21/19 11:00 Normal Saline - IV 02/22/19 11:00 PRN PRN Hypotension during Dialysis Insulin Aspart 1 vial 02/17/19 22:00 02/21/19 13:16 Novolog Vial Sliding Scale - SQ 2 units ACHS [facility] Administration Protocol Lamotrigine 100 mg 02/18/19 10:00 02/21/19 10:23 Lamictal - PO Not Given DAILY [facility] Mupirocin 1 applic 02/17/19 10:00 02/21/19 10:20 Bactroban Ointment (For Decolonization) - NS 02/22/19 09:59 1 applic BID [facility] Administration Pantoprazole Sodium 40 mg 02/19/19 11:30 02/21/19 10:23 Protonix Iv IVPUSH 40 mg BID [facility] Administration ASSESSMENT/PLAN: 68 M with PMH of DM, HTN, HLD, CKD, obesity, bipolar disorder, depression, and anxiety, who was brought to ED after being found down on the floor by brother with AMS. 1) AMS -Likely a toxic metabolic encephalopathy from uremia or electrolyte abnormalities or DKA -Patient sedated on propofol @ 30 mg/kg. -Patient intubated. Weaning trials as per ICU team. -F/U MRI -CT head negative -F/U repeat CT Head negative for bleeds -Urine culture negative -04/03 NS @75 ml/hr -Insulin drip held -Sliding scale insulin -Endocrinology consulted, appreciate recs -Neurology consulted, appreciate recs 2) SMITA -Hemodialysis today -Strict I/O. Balance: -222 ml -Rhabdomyolysis resolved -Renal U/S unremarkable -Nephrology consulted, appreciate recs 3) Pneumonia -CT Abdomen shows extensive bilateral lower lobe consolidation, right > left. -Zoysn 2.25 gram IV Q8H -ID consulted, appreciate recs -Legionella negative. 4)New onset Afib -Cardizem PO 30 mg TID PRN -Heparin drip held -Cardiology consulted, appreciate recs -Echo shows normal EF -Normal sinus now 5)Coffee ground emesis -Protonix 40 mg IV BID -Suspected ilues and not primary bleed event. NGT is clamped by GI, if output is not high can begin feeds and meds through tube. -CTA/P shows: 1. Extensive bilateral lower lobe consolidation, right greater than left. 2. No evidence of bowel obstruction or acute pathology within the abdomen or pelvis. -Abdomen X-Ray: 2 views of the abdomen reveal a paucity of bowel gas with a few isolated distended loops of bowel in the right upper quadrant. There are degenerative changes, no sign of free air or pneumatosis and there is a left iliac catheter. Correlation recommended. -GI Consuted appreciate recs 6)History of Bipolar disorder -Holding home meds 7) Wounds on lower chest, upper abdomen -Wound Care consulted, appreciate recs -pain management PRN Dispo: ICU monitoring F: 04/03 NS @ 75 ml/hr E: Trend CMP. Replete as needed N: NPO DVT: SCDS Visit type - Emergency Visit Emergency Visit: Yes ED Registration Date: 02/16/19 Care time: The patient presented to the Emergency Department on the above date and was hospitalized for further evaluation of their emergent condition. - New Patient This patient is new to me today: No - Critical Care Critical Care patient: Yes Total Critical Care Time (in minutes): 35 Critical Care Statement: The care of this patient involved high complexity decision making to prevent further life threatening deterioration of the patient 's condition and/or to evaluate & treat vital organ system(s) failure or risk of failure. ATTENDING PHYSICIAN STATEMENT I saw and evaluated the patient. I reviewed the resident's note and discussed the case with the resident. I agree with the resident's findings and plan as documented. SUBJECTIVE: OBJECTIVE: ASSESSMENT AND PLAN:
--- NOTE | 2019-02-21 16:14 | PN ---
Progress Note (short form) - Note Progress Note: Pt had about 45 minutes of HD and catheter stopped working.
--- NOTE | 2019-02-21 17:21 | PN ---
Progress Note, Physician History of Present Illness: Sedated on vent, remains in SR, no PAF. No further coffee grounds on OGT, heparin gtt d/edwin. On low dose Levophed gtt. - Current Medication List Current Medications: Active Medications Acetaminophen (Ofirmev Injection -) 1,000 mg IVPB Q6H PRN PRN Reason: FEVER Calcitriol (Rocaltrol -) 0.25 mcg PO DAILY [facility] Last Admin: 02/21/19 10:23 Dose: Not Given Calcium Acetate (Phoslo -) 667 mg PO TIDCM [facility] Last Admin: 02/21/19 13:16 Dose: 667 mg Chlorhexidine Gluconate (Hibiclens For Decolonization -) 1 applic TP HS [facility] Last Admin: 02/20/19 21:20 Dose: 1 applic Clotrimazole (Lotrimin 1% Cream -) 1 applic TP BID [facility] Last Admin: 02/21/19 10:20 Dose: 1 applic Diltiazem HCl (Cardizem -) 30 mg PO TID [facility] Last Admin: 02/21/19 16:45 Dose: Not Given Propofol (Diprivan -) 1,000,000 mcg in 100 mls @ 3.096 mls/hr IVPB TITR [facility]; Protocol Last Admin: 02/20/19 13:05 Dose: 5 mcg/kg/min, 3.096 mls/hr Sodium Chloride (1/2 Normal Saline) 1,000 mls @ 75 mls/hr IV ASDIR [facility] Last Admin: 02/20/19 15:15 Dose: 75 mls/hr Norepinephrine Bitartrate 4, (000 mcg/ Dextrose) 500 mls @ 37.5 mls/hr IV TITR [facility]; Protocol Last Titration: 02/20/19 17:00 Dose: 2 mcg/min, 15 mls/hr Piperacillin Sod/Tazobactam (Sod 2.25 gm/ Dextrose) 50 mls @ 100 mls/hr IVPB Q8H-IV [facility]; Protocol Last Admin: 02/21/19 10:23 Dose: 100 mls/hr Sodium Chloride (Normal Saline -) 250 mls @ 3,000 mls/hr IV PRN PRN PRN Reason: Hypotension during Dialysis Stop: 02/22/19 11:00 Sodium Chloride (Normal Saline -) 250 mls @ 3,000 mls/hr IV PRN PRN PRN Reason: Hypotension during Dialysis Stop: 02/22/19 16:14 Insulin Aspart (Novolog Vial Sliding Scale -) 1 vial SQ ACHS [facility]; Protocol Last Admin: 02/21/19 13:16 Dose: 2 units Lamotrigine (Lamictal -) 100 mg PO DAILY [facility] Last Admin: 02/21/19 10:23 Dose: Not Given Mupirocin (Bactroban Ointment (For Decolonization) -) 1 applic NS BID [facility] Stop: 02/22/19 09:59 Last Admin: 02/21/19 10:20 Dose: 1 applic Pantoprazole Sodium (Protonix Iv) 40 mg IVPUSH BID [facility] Last Admin: 02/21/19 10:23 Dose: 40 mg - Objective Vital Signs: Vital Signs Temperature 98.8 F 02/21/19 15:35 Pulse Rate 86 02/21/19 16:53 Respiratory Rate 18 02/21/19 16:53 Blood Pressure 110/75 02/21/19 16:53 O2 Sat by Pulse Oximetry (%) 97 02/21/19 04:13 Constitutional: Yes: No Distress, Calm Neck: Yes: Supple Cardiovascular: Yes: Pulse Irregular Respiratory: Yes: Intubated, Mechanically Ventilated Gastrointestinal: Yes: Soft, Hypoactive Bowel Sounds Edema: No Labs: CBC, BMP 02/21/19 06:15 02/21/19 06:15 INR, PTT INR 1.54 (0.83-1.09) H 02/17/19 05:13 - ....Imaging EKG: Report Reviewed (Tele: NSR) Problem List - Problems (1) Paroxysmal atrial fibrillation with rapid ventricular response Code(s): I48.0 - PAROXYSMAL ATRIAL FIBRILLATION Assessment/Plan 02/17/2019 Echo: Normal LV size with mild cLVH, LVEF 60-65%, normal LA size, mild ao 4.0 cm Problem List - Problems (1) HTN (hypertension) Code(s): I10 - ESSENTIAL (PRIMARY) HYPERTENSION (2) Hypercholesterolemia Code(s): E78.00 - PURE HYPERCHOLESTEROLEMIA, UNSPECIFIED (3) Bipolar disorder Code(s): F31.9 - BIPOLAR DISORDER, UNSPECIFIED (4) Leukocytosis Code(s): D72.829 - ELEVATED WHITE BLOOD CELL COUNT, UNSPECIFIED (5) Renal failure Code(s): N19 - UNSPECIFIED KIDNEY FAILURE (6) Rhabdomyolysis Code(s): M62.82 - RHABDOMYOLYSIS Assessment/Plan 1. ? Syncope, altered mental status 2. Acute Respiratory failure on mechanical ventilation 3. HTN 4. Hypercholesterolemia 5. SMITA and hyperkalemia underlying CKD due to dehydration ?rhabdomyolosis requiring HD 6. Bipolar disorder, depression and anxiety 7. PAF currently in sinus rhythm [id number] score of either 2-3 8. Carotid artery disease 9. Coffee ground emesis since resolved possible esophagitis, gastritis, PUD, AVMs or other underlying lesion PLAN: 1. Heparin drip d/edwin for now with monitor Hgb, resumption of anticoagulation pending hemostasis 2. HD per renal with monitor urine output, renal recovery and electrolytes 3. Wean off Levophed gtt for MAP>65 mmHg, Cardizem on hold pending hemodynamic stability 4. Decrease sedation and wean trials as tolerated 5. Neuro recommended MRI when stable 6. While pt may require EGD to further evaluate and prior to resuming a/c currently there is no emergent indication in setting of stable Hb/hemodynamics. Once further optimized will determine timing of endoscopy accordingly. May resume enteral feeds and meds per GI 7. Abx course per ID
--- NOTE | 2019-02-21 17:26 | PN ---
Teaching Attending Note Name of Resident: Eb Harding ATTENDING PHYSICIAN STATEMENT I saw and evaluated the patient. I reviewed the resident's note and discussed the case with the resident. I agree with the resident's findings and plan as documented. SUBJECTIVE: Unable to participate in medical interview. Intubated, mechanically ventilated, sedated. Volume of Coffee ground material via NG tube improved. Still requiring Levophed. Only had 45 minutes of HD today before HD tube was blocked. OBJECTIVE: Tmax 100.3. Intubated/Sedated. Rousable while on sedation. Appears comfortable. Last Vital Signs Temp Pulse Resp BP Pulse Ox 98.8 F 86 18 110/75 97 02/21/19 15:35 02/21/19 16:53 02/21/19 16:53 02/21/19 16:53 02/21/19 04:13 HEENT - ET tube in situ. NG tube with clearing of black/coffee ground material. Heart - S1, S2, RRR Lungs - good air entry bilaterally. Few basal crackles. Mechanically ventilated. Abdomen - Soft. Mild generalized tenderness with some wincing on deep palpation. Sluggish bowel sounds. R sided abdominal wall rug-burn like wound, without surrounding cellulitis. Extremities - mild edema. rug burn wound to inner aspect L knee with eschar, no surrounding erythema. Neuro - WILLARD. Moving extremities. Laboratory Results - last 24 hr 02/18/19 02/20/19 02/21/19 14:25 22:07 06:15 WBC RBC Hgb Hct MCV MCH MCHC RDW Plt Count MPV Absolute Neuts (auto) Neutrophils % Neutrophils % (Manual) Band Neutrophils % Lymphocytes % Lymphocytes % (Manual) Monocytes % Monocytes % (Manual) Eosinophils % Eosinophils % (Manual) Basophils % Basophils % (Manual) Myelocytes % (Man) Promyelocytes % (Man) Blast Cells % (Manual) Nucleated RBC % Metamyelocytes Hypochromia Platelet Estimate Polychromasia Poikilocytosis Anisocytosis Microcytosis Macrocytosis PTT (Actin FS) 29.9 Sodium Potassium Chloride Carbon Dioxide Anion Gap BUN Creatinine Est GFR (CKD-EPI)AfAm Est GFR (CKD-EPI)NonAf POC Glucometer 189 Random Glucose Calcium Phosphorus Magnesium Total Bilirubin AST ALT Alkaline Phosphatase Total Protein Albumin Hep A IgM Ab Confirm Negative Hepatitis A Ab Total Negative Hep Bs Antigen Negative Hep Bs Antibody Non reactive Hep B Core Total Ab Negative Hep B Core IgM Ab Negative Hepatitis Be Antibody Negative Hepatitis Be Antigen Negative 02/21/19 02/21/19 02/21/19 06:15 06:15 06:36 WBC 19.2 H RBC 3.61 L Hgb 11.3 L Hct 34.6 L MCV 96.0 MCH 31.2 MCHC 32.6 RDW 14.0 Plt Count 113 L MPV 10.5 Absolute Neuts (auto) 17.9 H Neutrophils % 93.5 H Neutrophils % (Manual) 93.0 H Band Neutrophils % 2.0 Lymphocytes % 2.4 L Lymphocytes % (Manual) 2.0 L D Monocytes % 2.4 L Monocytes % (Manual) 1 L D Eosinophils % 1.5 D Eosinophils % (Manual) 2.0 D Basophils % 0.2 Basophils % (Manual) 0.0 Myelocytes % (Man) 0 Promyelocytes % (Man) 0 Blast Cells % (Manual) 0 Nucleated RBC % 0 Metamyelocytes 0 D Hypochromia 0 Platelet Estimate Decreased Polychromasia 0 Poikilocytosis 1+ Anisocytosis 0 Microcytosis 0 Macrocytosis 0 PTT (Actin FS) Sodium 145 Potassium 4.2 Chloride 104 Carbon Dioxide 31 Anion Gap 9 BUN 111.5 H* Creatinine 4.3 H Est GFR (CKD-EPI)AfAm 15.41 Est GFR (CKD-EPI)NonAf 13.29 POC Glucometer 171 Random Glucose 166 H Calcium 8.6 Phosphorus 6.5 H Magnesium 2.6 H Total Bilirubin 1.1 H AST 28 ALT 23 Alkaline Phosphatase 63 Total Protein 4.8 L Albumin 1.6 L Hep A IgM Ab Confirm Hepatitis A Ab Total Hep Bs Antigen Hep Bs Antibody Hep B Core Total Ab Hep B Core IgM Ab Hepatitis Be Antibody Hepatitis Be Antigen 02/21/19 02/21/19 11:18 16:56 WBC RBC Hgb Hct MCV MCH MCHC RDW Plt Count MPV Absolute Neuts (auto) Neutrophils % Neutrophils % (Manual) Band Neutrophils % Lymphocytes % Lymphocytes % (Manual) Monocytes % Monocytes % (Manual) Eosinophils % Eosinophils % (Manual) Basophils % Basophils % (Manual) Myelocytes % (Man) Promyelocytes % (Man) Blast Cells % (Manual) Nucleated RBC % Metamyelocytes Hypochromia Platelet Estimate Polychromasia Poikilocytosis Anisocytosis Microcytosis Macrocytosis PTT (Actin FS) Sodium Potassium Chloride Carbon Dioxide Anion Gap BUN Creatinine Est GFR (CKD-EPI)AfAm Est GFR (CKD-EPI)NonAf POC Glucometer 158 123 Random Glucose Calcium Phosphorus Magnesium Total Bilirubin AST ALT Alkaline Phosphatase Total Protein Albumin Hep A IgM Ab Confirm Hepatitis A Ab Total Hep Bs Antigen Hep Bs Antibody Hep B Core Total Ab Hep B Core IgM Ab Hepatitis Be Antibody Hepatitis Be Antigen Current Medications Generic Name Dose Route Start Last Admin Trade Name Freq PRN Reason Stop Dose Admin Acetaminophen 1,000 mg 02/20/19 21:53 Ofirmev Injection - IVPB Q6H PRN FEVER Calcitriol 0.25 mcg 02/17/19 10:00 02/21/19 10:23 Rocaltrol - PO Not Given DAILY [facility] Calcium Acetate 667 mg 02/17/19 08:00 02/21/19 13:16 Phoslo - PO 667 mg TIDCM [facility] Administration Chlorhexidine Gluconate 1 applic 02/17/19 22:00 02/20/19 21:20 Hibiclens For Decolonization - TP 1 applic HS [facility] Administration Clotrimazole 1 applic 02/17/19 10:00 02/21/19 10:20 Lotrimin 1% Cream - TP 1 applic BID [facility] Administration Diltiazem HCl 30 mg 02/17/19 14:00 02/21/19 16:45 Cardizem - PO Not Given TID [facility] Propofol 1,000,000 mcg in 100 mls @ 3.096 mls/hr 02/18/19 08:30 02/20/19 13: 05 Diprivan - IVPB 5 mcg/kg/min TITR [facility] 3.096 mls/hr Administration Protocol 5 MCG/KG/MIN Sodium Chloride 1,000 mls @ 75 mls/hr 02/18/19 13:40 02/20/19 15:15 1/2 Normal Saline IV 75 mls/hr ASDIR [facility] Administration Norepinephrine Bitartrate 4, 500 mls @ 37.5 mls/hr 02/20/19 07:30 02/20/19 17 :00 000 mcg/ Dextrose IV 2 mcg/min TITR [facility] 15 mls/hr Titration Protocol 5 MCG/MIN Piperacillin Sod/Tazobactam 50 mls @ 100 mls/hr 02/21/19 02:00 02/21/19 10:23 Sod 2.25 gm/ Dextrose IVPB 100 mls/hr Q8H-IV [facility] Administration Protocol Sodium Chloride 250 mls @ 3,000 mls/hr 02/21/19 11:00 Normal Saline - IV 02/22/19 11:00 PRN PRN Hypotension during Dialysis Sodium Chloride 250 mls @ 3,000 mls/hr 02/21/19 16:14 Normal Saline - IV 02/22/19 16:14 PRN PRN Hypotension during Dialysis Insulin Aspart 1 vial 02/17/19 22:00 02/21/19 13:16 Novolog Vial Sliding Scale - SQ 2 units ACHS [facility] Administration Protocol Lamotrigine 100 mg 02/18/19 10:00 02/21/19 10:23 Lamictal - PO Not Given DAILY [facility] Mupirocin 1 applic 02/17/19 10:00 02/21/19 10:20 Bactroban Ointment (For Decolonization) - NS 02/22/19 09:59 1 applic BID [facility] Administration Pantoprazole Sodium 40 mg 02/19/19 11:30 02/21/19 10:23 Protonix Iv IVPUSH 40 mg BID [facility] Administration Home Medications Medication Instructions Recorded Allopurinol [Zyloprim -] 200 mg DAILY 02/17/19 Amlodipine Besylate 10 mg PO DAILY 02/17/19 Diazepam [Valium] 10 mg PO TID 02/17/19 Insulin Aspart [Novolog] 2 units TID 02/17/19 Insulin Glargine,Hum.rec.anlog 95 unit HS 02/17/19 [Toujeo Solostar] Lamotrigine 100 mg DAILY 02/17/19 Losartan/Hydrochlorothiazide 1 tablet DAILY 02/17/19 [Losartan-Hctz 100-12.5 mg Tab] Quetiapine Fumarate [Seroquel -] 200 mg PO HS 02/17/19 ASSESSMENT/PLAN: 68 year old male with history of DM 2, HTN, HLD, CKD, Obesity, Bipolar Disorder , Depression, Anxiety, lives alone, found on floor of his house by his brother, noted to have SMITA, DKA, Multiple electrolyte abnormalities, AMS. 1. Acute Hypercapneic Respiratory Failure and Septic Shock, secondary to bilateral Pneumonia ?Aspiration. Intubated. CT C/A/P - bilateral consolidation. Requiring Levophed for BP maintenance Leukocytosis - WBC 19.2 Continue IV Zosyn to cover for possible aspiration. ID following Sputum Cx requested. Urine legionella Ag negative. 2. Syncope/Fall with LOC and Acute Encephalopathy (secondary to Uremia vs Hypernatremia vs Acidosis) Initially recovered mental status after adequate hydration and electrolyte replacement, but then became unresponsive requiring intubation. Initial CT Head negative for acute findings, repeat CT shows no interval change. No telemonitoring events. Echo - normal EF, small pericardial effusion, no signs of tamponade. MRI recommended by Neurology 3. Upper GI Bleed. Coffee-ground material noticed in NG tube, now clearing. PPI. GI following. H/H monitoring. 4. Atrial Fibrillation with RVR - resolved. Cardizem drip held. Cardizem po also held for now. Heparin drip held due to coffee ground material in NG tube. 5. 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 Renal US - no obstruction. HD catheter blocked during HD today - further management as per Nephrology. 5. Hypernatremia sec to dehydration - improved with HD 6. Hypokalemia/Hypocalcemia - repleted/resolved. Started on Calcitriol and Calcium supplementation. 7. DKA - resolved. Insulin drip discontinued. Endocrine following. 8. Bipolar Disorder - normally on Seroquel, Lamictal, Diazepam. 9. HTN - currently in shock, BP meds - Norvasc, Losartan, HCTZ held. 10. Wounds R abdominal wall and L knee ? sec to fall/carpet burn, multiple decubitus ulcers buttocks and R hip - no surrounding erythema/infection. Wound Care consulted. DVT Px - Heparin drip held due to coffee ground material via NG tube. GI Px - PPI IV
[2019-02-21] MEDS: SODIUM CHLORIDE 0.45% 1,000 ML IV SCH (17:41)
[2019-02-21] MEDS ORDERED: PROPOFOL 1,000,000 MCG/100 ML VIAL ONE (19:03)
[2019-02-21] MEDS: CHLORHEXIDINE GLUCONATE 4% CLEANSER FOR DECOLONIZATION TP SCH (22:32)
[2019-02-22] MEDS: PROPOFOL 1,000,000 MCG/100 ML VIAL IVPB SCH ×4 (00:46→21:40)
[2019-02-22] MEDS: PIPERACILLIN/TAZOB 2.25 GM 2.25 GM in DEXTROSE 5%-WATER - 50 ML IVPB SCH ×2 (02:55→10:44)
[2019-02-22] MEDS ORDERED: DEXTROSE 5%-WATER - 50 ML IVPB ONE ×3 (02:58→18:55)
[2019-02-22] MEDS ORDERED: PIPERACILLIN/TAZOBACTAM 2.25 GM VIAL IVPB ONE ×3 (02:58→18:55)
[2019-02-22] MEDS: dilTIAZem HCL 30 MG TABLET (FP) PO SCH ×3 (06:15→21:39)
--- NOTE | 2019-02-22 07:00 | PN ---
Progress Note (short form) - Note Progress Note: Chief Complaint: Events noted, notes reviewed, remains intubated and sedated in no acute distress, remains on pressors/Norepinephrine History of Present Illness: Seen and examined in the ICU. Events noted, notes reviewed, remains intubated and sedated in no acute distress, remains on pressors/Norepinephrine Evidence of visual coronary artery calcification noted on CT scan of the abdomen - Current Medication List Current Medications Acetaminophen (Ofirmev Injection -) 1,000 mg IVPB Q6H PRN PRN Reason: FEVER Calcitriol (Rocaltrol -) 0.25 mcg PO DAILY [facility] Last Admin: 02/21/19 10:23 Dose: Not Given Calcium Acetate (Phoslo -) 667 mg PO TIDCM [facility] Last Admin: 02/21/19 18:52 Dose: 667 mg Chlorhexidine Gluconate (Hibiclens For Decolonization -) 1 applic TP HS [facility] Last Admin: 02/21/19 22:32 Dose: 1 applic Clotrimazole (Lotrimin 1% Cream -) 1 applic TP BID [facility] Last Admin: 02/21/19 22:31 Dose: 1 applic Diltiazem HCl (Cardizem -) 30 mg PO TID [facility] Last Admin: 02/22/19 06:15 Dose: Not Given Propofol (Diprivan -) 1,000,000 mcg in 100 mls @ 3.096 mls/hr IVPB TITR [facility]; Protocol Last Admin: 02/22/19 06:43 Dose: 30 mcg/kg/min, 18.576 mls/hr Sodium Chloride (1/2 Normal Saline) 1,000 mls @ 75 mls/hr IV ASDIR [facility] Last Admin: 02/21/19 17:41 Dose: 75 mls/hr Norepinephrine Bitartrate 4, (000 mcg/ Dextrose) 500 mls @ 37.5 mls/hr IV TITR [facility]; Protocol Last Titration: 02/21/19 21:00 Dose: 2 mcg/min, 15 mls/hr Piperacillin Sod/Tazobactam (Sod 2.25 gm/ Dextrose) 50 mls @ 100 mls/hr IVPB Q8H-IV [facility]; Protocol Last Admin: 02/22/19 02:55 Dose: 100 mls/hr Sodium Chloride (Normal Saline -) 250 mls @ 3,000 mls/hr IV PRN PRN PRN Reason: Hypotension during Dialysis Stop: 02/22/19 11:00 Sodium Chloride (Normal Saline -) 250 mls @ 3,000 mls/hr IV PRN PRN PRN Reason: Hypotension during Dialysis Stop: 02/22/19 16:14 Insulin Aspart (Novolog Vial Sliding Scale -) 1 vial SQ ACHS [facility]; Protocol Last Admin: 02/21/19 22:32 Dose: Not Given Lamotrigine (Lamictal -) 100 mg PO DAILY [facility] Last Admin: 02/21/19 10:23 Dose: Not Given Mupirocin (Bactroban Ointment (For Decolonization) -) 1 applic NS BID [facility] Stop: 02/22/19 09:59 Last Admin: 02/21/19 22:31 Dose: 1 applic Pantoprazole Sodium (Protonix Iv) 40 mg IVPUSH BID [facility] Last Admin: 02/21/19 22:32 Dose: 40 mg Review of Systems Unable to obtain, intubated and sedated` - Objective Vital Signs: Last Vital Signs Temp Pulse Resp BP Pulse Ox 98.7 F 57 L 14 130/59 L 98 02/22/19 06:00 02/22/19 06:00 02/22/19 06:00 02/22/19 06:00 02/22/19 00:18 Intake & Output 02/19/19 02/20/19 02/21/19 02/22/19 23:59 23:59 23:59 23:59 Intake Total 3000.7 2007 2052.4 Output Total 1999 2230 1300 800 Balance 1000.7 -222 752.4 -800 Weight 223 lb 6.4 oz Neck: Supple Negative JVD No Bruit Respiratory: Scattered Rhonchi Bilaterally Cardiovascular: S1 S2 Regular Rate and Rhythm Gastrointestinal: Soft Benign Normal Bowel Sounds Ext: No Edema Labs: ABG Results ABG pH 7.51 (7.35-7.45) H 02/19/19 07:30 ABG pCO2 at Pt Temp 37.5 mmHg (35-45) 02/19/19 07:30 ABG pO2 at Pt Temp 168 mmHg (80-100) H 02/19/19 07:30 ABG HCO3 29.5 mmol/L (22-27) H 02/19/19 07:30 ABG O2 Sat (Measured) 99.2 % (95-98) H 02/19/19 07:30 ABG O2 Content 18.9 % vol 02/19/19 07:30 ABG Base Excess 6.4 meq/l (-2-2) H 02/19/19 07:30 CBC, BMP 02/21/19 06:15 02/21/19 06:15 Hepatic Panel Total Bilirubin 1.1 mg/dL (0.2-1) H 02/21/19 06:15 AST 28 U/L (15-37) 02/21/19 06:15 ALT 23 U/L (13-61) 02/21/19 06:15 Alkaline Phosphatase 63 U/L (45-117) 02/21/19 06:15 Albumin 1.6 g/dl (3.4-5.0) L 02/21/19 06:15 INR, PTT INR 1.54 (0.83-1.09) H 02/17/19 05:13 Assessment/Plan ASSESSMENT: 1. Questionable syncope, altered mental status- currently sedated 2. Acute Respiratory failure 3. Coronary artery disease/visual coronary artery calcification angina pectoris 4. Diastolic LV dysfunction with clinical class 0 NYHA classification LV failure 5. PAF currently in sinus rhythm [id number] score of either 2-3 currently on no A/C recent coffee ground emesis/GI bleed 6. HTN, currently hypotensive on pressors 7. Hypercholesterolemia 8. Acute on CKD requiring HD 9. Bipolar disorder, depression and anxiety 10. History of coffee ground emesis- resolved etiology unclear PLAN: 1. Resumption of anticoagulation once full hemostasis is achieved, Heparin 2. HD per renal service 3. Attempt to wean off pressors hemodynamics tolerating 4. Continue Cardizem withhold pending hemodynamic stability christianity 5. Ventilator management as per the critical care team, attempt to wean off ventilator once off of sedation 6. Antibiotics as per the primary ream 7. Future GI evaluation for the above noted GI bleed would be recommended specially with planned rn long term care A/C utilization Dougie Wylie M.D.
--- NOTE | 2019-02-22 07:48 | PN ---
Physical Exam: SUBJECTIVE: Patient seen and examined by the bedside. He is sedated and intubated. No acute events overnight. OBJECTIVE: Vital Signs Period Temp Pulse Resp BP Sys/Verdugo Pulse Ox Last 24 Hr 98.4 F-100.3 F 51-86 14-57 83-139/51-75 98-100 GENERAL: The patient is intubated, sedated, in no acute distress. HEAD: Normal with no signs of trauma. EYES: DANIELITO NECK: Trachea midline LUNGS: Breath sounds equal, clear to auscultation bilaterally, no wheezes, no crackles HEART: RRR, no murmurs or rubs ABDOMEN: Soft, nontender, nondistended, normoactive bowel sounds, no guarding, no rebound, no masses. EXTREMITIES: 2+ pulses, warm, well-perfused, no edema. NEUROLOGICAL: Unresponsive, on sedation SKIN: Warm, dry, normal turgor, no rashes or lesions noted. CBC, BMP 02/21/19 06:15 02/21/19 06:15 Current Medications Acetaminophen (Ofirmev Injection -) 1,000 mg IVPB Q6H PRN PRN Reason: FEVER Calcitriol (Rocaltrol -) 0.25 mcg PO DAILY [facility] Last Admin: 02/21/19 10:23 Dose: Not Given Calcium Acetate (Phoslo -) 667 mg PO TIDCM [facility] Last Admin: 02/21/19 18:52 Dose: 667 mg Chlorhexidine Gluconate (Hibiclens For Decolonization -) 1 applic TP HS [facility] Last Admin: 02/21/19 22:32 Dose: 1 applic Clotrimazole (Lotrimin 1% Cream -) 1 applic TP BID [facility] Last Admin: 02/22/19 10:40 Dose: 1 applic Diltiazem HCl (Cardizem -) 30 mg PO TID [facility] Last Admin: 02/22/19 06:15 Dose: Not Given Propofol (Diprivan -) 1,000,000 mcg in 100 mls @ 3.096 mls/hr IVPB TITR [facility]; Protocol Last Admin: 02/22/19 10:39 Dose: 30 mcg/kg/min, 18.576 mls/hr Sodium Chloride (1/2 Normal Saline) 1,000 mls @ 75 mls/hr IV ASDIR [facility] Last Admin: 02/21/19 17:41 Dose: 75 mls/hr Norepinephrine Bitartrate 4, (000 mcg/ Dextrose) 500 mls @ 37.5 mls/hr IV TITR [facility]; Protocol Last Admin: 02/22/19 10:26 Dose: Not Given Piperacillin Sod/Tazobactam (Sod 2.25 gm/ Dextrose) 50 mls @ 100 mls/hr IVPB Q8H-IV [facility]; Protocol Last Admin: 02/22/19 02:55 Dose: 100 mls/hr Sodium Chloride (Normal Saline -) 250 mls @ 3,000 mls/hr IV PRN PRN PRN Reason: Hypotension during Dialysis Stop: 02/22/19 11:00 Sodium Chloride (Normal Saline -) 250 mls @ 3,000 mls/hr IV PRN PRN PRN Reason: Hypotension during Dialysis Stop: 02/22/19 16:14 Insulin Aspart (Novolog Vial Sliding Scale -) 1 vial SQ ACHS [facility]; Protocol Last Admin: 02/21/19 22:32 Dose: Not Given Lamotrigine (Lamictal -) 100 mg PO DAILY [facility] Last Admin: 02/21/19 10:23 Dose: Not Given Pantoprazole Sodium (Protonix Iv) 40 mg IVPUSH BID [facility] Last Admin: 02/22/19 10:40 Dose: 40 mg ASSESSMENT/PLAN: 68M with PMH of CKD, DM, HTN, HLD, obesity, bipolar disorder, depression, and anxiety. He was brought in by EMS after being found on the ground in his apartment for an unknown period of time. According to the brother, baseline mental status is AOx3. Intubated / Neuro - Sedated and intubated - CT Head: No bleed, moderate atrophy, on intracranial pathology - Continue home med Lamotrigine 100mg PO - Carotid Doppler: Plaque in RCC bifurcation, no HDS stenosis - Neuro recs: MRI head #GI - GI recs: Suspect ileus and not primary GI bleed event. Clamped NGT. If no high output, begin to use for meds and feeds - CTAP: No obstruction, rectal impaction with hiatal hernia noticed - Continue Protonix BID #Respiratory - B/L changes persist, mild infiltrate in L base #CVS - Norepi stopped, patient normotensive - AFib with RVR, rate control with Cardizem but currently on hold, may be resumed once pt hemodynamically stable - Vascular consult for ulcers: no need for surgical management at this time, rotate weight bearing areas - Echo: EF 60-65, mild LVH, normal LVSF, small pericardial effusion (<1cm) #Nephro - HD 45 minutes yesterday, stopped due to poor access, will speak with Nephro regarding plan to dialyze - BUN/Cr: 109.3/4.3 -> 111.5/4.3 -> - L Femoral Trialysis catheter removed today - Chou in place, monitor I/O - UTox: Benzo and Marijuana positive #Endo - Came in with Glucose 329, Beta Hydroxybutyrate 5.5 -> 1.0, s/p insulin drip-- > now controlled on ISS - HbA1c 6.3 #ID - WBC 11.7->13.1-> 15.8 -> 12.8 -> 19.2 - 101.5 overnight without source - BCx no growth - Ceftriaxone Day 4, Zosyn Day 2 as per ID #FEN - 0.45 N/S @ 75 - Monitor electrolytes and replete as needed - NPO except for meds #DVT PE - SCD, holding Heparin due to bleed #Dispo - Possible HD today - Possible extubation tomorrow Visit type - Emergency Visit Emergency Visit: Yes ED Registration Date: 02/16/19 Care time: The patient presented to the Emergency Department on the above date and was hospitalized for further evaluation of their emergent condition. - New Patient This patient is new to me today: No - Critical Care Critical Care patient: Yes Total Critical Care Time (in minutes): 38 Critical Care Statement: The care of this patient involved high complexity decision making to prevent further life threatening deterioration of the patient 's condition and/or to evaluate & treat vital organ system(s) failure or risk of failure. ATTENDING PHYSICIAN STATEMENT I saw and evaluated the patient. I reviewed the resident's note and discussed the case with the resident. I agree with the resident's findings and plan as documented. SUBJECTIVE: OBJECTIVE: ASSESSMENT AND PLAN:
--- NOTE | 2019-02-22 10:07 | PN ---
Teaching Attending Note Name of Resident: Hollis Floyd ATTENDING PHYSICIAN STATEMENT I saw and evaluated the patient. I reviewed the resident's note and discussed the case with the resident. I agree with the resident's findings and plan as documented. SUBJECTIVE: Pt seen and examined in the ICU. Remains intubated, sedated on low dose levophed gtt. OBJECTIVE: Vital Signs Period Temp Pulse Resp BP Sys/Verdugo Pulse Ox Last 24 Hr 98.6 F-100.3 F 51-86 14-57 83-139/51-75 98-100 Intake & Output 02/19/19 02/20/19 02/21/19 02/22/19 23:59 23:59 23:59 23:59 Intake Total 3000.7 2007 2052.4 810.2 Output Total 1999 2230 1300 800 Balance 1000.7 -222 752.4 10.2 Weight 101.333 kg 100.516 kg Gen: intubated, sedated Heart: RRR Lung: decreased breath sounds at the bases Abd: soft, nontender Ext: no edema CBC, BMP 02/21/19 06:15 02/21/19 06:15 Active Medications Acetaminophen (Ofirmev Injection -) 1,000 mg IVPB Q6H PRN PRN Reason: FEVER Calcitriol (Rocaltrol -) 0.25 mcg PO DAILY [facility] Last Admin: 02/21/19 10:23 Dose: Not Given Calcium Acetate (Phoslo -) 667 mg PO TIDCM [facility] Last Admin: 02/21/19 18:52 Dose: 667 mg Chlorhexidine Gluconate (Hibiclens For Decolonization -) 1 applic TP HS [facility] Last Admin: 02/21/19 22:32 Dose: 1 applic Clotrimazole (Lotrimin 1% Cream -) 1 applic TP BID [facility] Last Admin: 02/21/19 22:31 Dose: 1 applic Diltiazem HCl (Cardizem -) 30 mg PO TID [facility] Last Admin: 02/22/19 06:15 Dose: Not Given Propofol (Diprivan -) 1,000,000 mcg in 100 mls @ 3.096 mls/hr IVPB TITR [facility]; Protocol Last Admin: 02/22/19 06:43 Dose: 30 mcg/kg/min, 18.576 mls/hr Sodium Chloride (1/2 Normal Saline) 1,000 mls @ 75 mls/hr IV ASDIR [facility] Last Admin: 02/21/19 17:41 Dose: 75 mls/hr Norepinephrine Bitartrate 4, (000 mcg/ Dextrose) 500 mls @ 37.5 mls/hr IV TITR [facility]; Protocol Last Titration: 02/21/19 21:00 Dose: 2 mcg/min, 15 mls/hr Piperacillin Sod/Tazobactam (Sod 2.25 gm/ Dextrose) 50 mls @ 100 mls/hr IVPB Q8H-IV [facility]; Protocol Last Admin: 02/22/19 02:55 Dose: 100 mls/hr Sodium Chloride (Normal Saline -) 250 mls @ 3,000 mls/hr IV PRN PRN PRN Reason: Hypotension during Dialysis Stop: 02/22/19 11:00 Sodium Chloride (Normal Saline -) 250 mls @ 3,000 mls/hr IV PRN PRN PRN Reason: Hypotension during Dialysis Stop: 02/22/19 16:14 Insulin Aspart (Novolog Vial Sliding Scale -) 1 vial SQ ACHS [facility]; Protocol Last Admin: 02/21/19 22:32 Dose: Not Given Lamotrigine (Lamictal -) 100 mg PO DAILY [facility] Last Admin: 02/21/19 10:23 Dose: Not Given Pantoprazole Sodium (Protonix Iv) 40 mg IVPUSH BID [facility] Last Admin: 02/21/19 22:32 Dose: 40 mg ASSESSMENT AND PLAN: Altered Mental Status/Syncope Acute Respiratory Failure Acute on Chronic Renal Failure requiring HD Rhabdomyolysis Paroxysmal Atrial Fibrillation HTN Hypercholesterolemia - HD per renal - IVF - titrate off pressors, maintain MAP >65 - monitor urine output, creatinine - rate control - holding anticoagulation for possible GI bleed - spontaneous breathing trials as tolerated - DVT/GI prophylaxis - continue ICU monitoring critical care time spent in reviewing chart, evaluating patient and formulating plan 35 min
[2019-02-22] MEDS: NOREPINEPHRINE BITARTRATE 4,000 MCG in DEXTROSE 5%-WATER - 496 ML IV SCH (10:26)
[2019-02-22] MEDS: CLOTRIMAZOLE 1% CREAM 15 GM TUBE TP SCH ×2 (10:40→21:42)
[2019-02-22] MEDS: PANTOPRAZOLE SODIUM 40 MG VIAL IVPUSH SCH ×2 (10:40→21:39)
[2019-02-22] MEDS: INSULIN SLIDING SCALE (NOVOLOG) 1 VIAL SQ SCH ×4 (10:44→21:39)
[2019-02-22 11:04] LABS: INR 1.22 (0.83-1.09); PROTHROMBIN TIME (PATIENT) 14.4 SEC (9.7-13.0)
[2019-02-22 11:07] LABS: ACTIVATED PTT 29.4 SECONDS (25.2-36.5)
[2019-02-22 11:11] LABS: HEMATOCRIT 33.8 % (35.4-49); HEMOGLOBIN 11.2 GM/dL (11.7-16.9); MCH 31.7 pg (25.7-33.7); MCHC 33.2 g/dl (32.0-35.9); MEAN CELL VOLUME 95.4 fl (80-96); MEAN PLT VOLUME 10.8 fl (7.5-11.1); PLATELET COUNT 111 K/MM3 (134-434); RBC 3.54 M/mm3 (4.00-5.60); RDW 13.9 % (11.9-15.9); WHITE BLOOD COUNT 12.8 K/mm3 (4.0-10.0)
--- NOTE | 2019-02-22 11:11 | PN ---
Physical Exam: SUBJECTIVE: Patient seen and examined in the morning. No acute events overnight. Patient sedated, unable to interact with examiner. OBJECTIVE: Vital Signs Period Temp Pulse Resp BP Sys/Verdugo Pulse Ox Last 24 Hr 98.6 F-100.3 F 51-86 14-57 83-139/51-75 98-100 GENERAL: The patient is sedated on propofol drip. HEAD: Normal with no signs of trauma. LUNGS: Ventilator breath sounds equal b/l HEART: Regular rate and rhythm, S1, S2. ABDOMEN: Soft, tender to palpation in abdomen. EXTREMITIES: 2+ pulses, no edema. PSYCH: Normal mood, normal affect. SKIN: Warm, dry, normal turgor. Wounds on chest and abdomen still present from admission. Laboratory Results - last 24 hr 02/20/19 02/21/19 02/21/19 06:05 06:15 11:18 Neutrophils % (Manual) 93.0 H Band Neutrophils % 2.0 Lymphocytes % (Manual) 2.0 L D Monocytes % (Manual) 1 L D Eosinophils % (Manual) 2.0 D Basophils % (Manual) 0.0 Myelocytes % (Man) 0 Promyelocytes % (Man) 0 Blast Cells % (Manual) 0 Metamyelocytes 0 D Hypochromia 0 Platelet Estimate Decreased Polychromasia 0 Poikilocytosis 1+ Anisocytosis 0 Microcytosis 0 Macrocytosis 0 PT with INR INR PTT (Actin FS) POC Glucometer 158 AMADEO Screen Negative 02/21/19 02/21/19 02/22/19 16:56 22:26 10:15 Neutrophils % (Manual) Band Neutrophils % Lymphocytes % (Manual) Monocytes % (Manual) Eosinophils % (Manual) Basophils % (Manual) Myelocytes % (Man) Promyelocytes % (Man) Blast Cells % (Manual) Metamyelocytes Hypochromia Platelet Estimate Polychromasia Poikilocytosis Anisocytosis Microcytosis Macrocytosis PT with INR 14.40 H INR 1.22 H PTT (Actin FS) 29.4 POC Glucometer 123 149 AMADEO Screen 02/22/19 10:42 Neutrophils % (Manual) Band Neutrophils % Lymphocytes % (Manual) Monocytes % (Manual) Eosinophils % (Manual) Basophils % (Manual) Myelocytes % (Man) Promyelocytes % (Man) Blast Cells % (Manual) Metamyelocytes Hypochromia Platelet Estimate Polychromasia Poikilocytosis Anisocytosis Microcytosis Macrocytosis PT with INR INR PTT (Actin FS) POC Glucometer 125 AMADEO Screen Active Medications Generic Name Dose Route Start Last Admin Trade Name Rufina PRN Reason Stop Dose Admin Acetaminophen 1,000 mg 02/20/19 21:53 Ofirmev Injection - IVPB Q6H PRN FEVER Calcitriol 0.25 mcg 02/17/19 10:00 02/21/19 10:23 Rocaltrol - PO Not Given DAILY [facility] Calcium Acetate 667 mg 02/17/19 08:00 02/21/19 18:52 Phoslo - PO 667 mg TIDCM [facility] Administration Chlorhexidine Gluconate 1 applic 02/17/19 22:00 02/21/19 22:32 Hibiclens For Decolonization - TP 1 applic HS [facility] Administration Clotrimazole 1 applic 02/17/19 10:00 02/22/19 10:40 Lotrimin 1% Cream - TP 1 applic BID [facility] Administration Diltiazem HCl 30 mg 02/17/19 14:00 02/22/19 06:15 Cardizem - PO Not Given TID [facility] Propofol 1,000,000 mcg in 100 mls @ 3.096 mls/hr 02/18/19 08:30 02/22/19 10: 39 Diprivan - IVPB 30 mcg/kg/min TITR [facility] 18.576 mls/hr Administration Protocol 5 MCG/KG/MIN Sodium Chloride 1,000 mls @ 75 mls/hr 02/18/19 13:40 02/21/19 17:41 1/2 Normal Saline IV 75 mls/hr ASDIR [facility] Administration Norepinephrine Bitartrate 4, 500 mls @ 37.5 mls/hr 02/20/19 07:30 02/22/19 10 :26 000 mcg/ Dextrose IV Not Given TITR [facility] Protocol 5 MCG/MIN Piperacillin Sod/Tazobactam 50 mls @ 100 mls/hr 02/21/19 02:00 02/22/19 10:44 Sod 2.25 gm/ Dextrose IVPB 100 mls/hr Q8H-IV [facility] Administration Protocol Sodium Chloride 250 mls @ 3,000 mls/hr 02/21/19 11:00 Normal Saline - IV 02/22/19 11:00 PRN PRN Hypotension during Dialysis Sodium Chloride 250 mls @ 3,000 mls/hr 02/21/19 16:14 Normal Saline - IV 02/22/19 16:14 PRN PRN Hypotension during Dialysis Insulin Aspart 1 vial 02/17/19 22:00 02/22/19 10:44 Novolog Vial Sliding Scale - SQ Not Given ACHS [facility] Protocol Lamotrigine 100 mg 02/18/19 10:00 02/21/19 10:23 Lamictal - PO Not Given DAILY [facility] Pantoprazole Sodium 40 mg 02/19/19 11:30 02/22/19 10:40 Protonix Iv IVPUSH 40 mg BID [facility] Administration ASSESSMENT/PLAN: 68 M with PMH of DM, HTN, HLD, CKD, obesity, bipolar disorder, depression, and anxiety, who was brought to ED after being found down on the floor by brother with AMS. 1) AMS -Likely a toxic metabolic encephalopathy from uremia or electrolyte abnormalities or DKA -Patient sedated on propofol @ 30 mg/kg. -Patient intubated. Weaning trials as per ICU team. -F/U MRI -CT head negative -F/U repeat CT Head negative for bleeds -Urine culture negative -04/03 NS @75 ml/hr -Insulin drip held -Sliding scale insulin -Endocrinology consulted, appreciate recs -Neurology consulted, appreciate recs 2) SMITA -Hemodialysis was partially completed yesterday due to blockage. -Strict I/O. Balance: -222 ml -Rhabdomyolysis resolved -Renal U/S unremarkable -Nephrology consulted, appreciate recs 3) Pneumonia -CT Abdomen shows extensive bilateral lower lobe consolidation, right > left. -Zoysn 2.25 gram IV Q8H -ID consulted, appreciate recs -Legionella negative. 4)New onset Afib -Cardizem PO 30 mg TID PRN -Heparin drip held -Cardiology consulted, appreciate recs -Echo shows normal EF -Normal sinus now 5)Coffee ground emesis -Protonix 40 mg IV BID -Suspected ilues and not primary bleed event. NGT is clamped by GI, if output is not high can begin feeds and meds through tube. -CTA/P shows: 1. Extensive bilateral lower lobe consolidation, right greater than left. 2. No evidence of bowel obstruction or acute pathology within the abdomen or pelvis. -Abdomen X-Ray: 2 views of the abdomen reveal a paucity of bowel gas with a few isolated distended loops of bowel in the right upper quadrant. There are degenerative changes, no sign of free air or pneumatosis and there is a left iliac catheter. Correlation recommended. -GI Consuted appreciate recs 6)History of Bipolar disorder -Holding home meds 7) Wounds on lower chest, upper abdomen -Wound Care consulted, appreciate recs -pain management PRN Dispo: ICU monitoring F: 04/03 NS @ 75 ml/hr E: Trend CMP. Replete as needed N: NPO DVT: SCDS Visit type - Emergency Visit Emergency Visit: Yes ED Registration Date: 02/16/19 Care time: The patient presented to the Emergency Department on the above date and was hospitalized for further evaluation of their emergent condition. - New Patient This patient is new to me today: No - Critical Care Critical Care patient: Yes Total Critical Care Time (in minutes): 35 Critical Care Statement: The care of this patient involved high complexity decision making to prevent further life threatening deterioration of the patient 's condition and/or to evaluate & treat vital organ system(s) failure or risk of failure. ATTENDING PHYSICIAN STATEMENT I saw and evaluated the patient. I reviewed the resident's note and discussed the case with the resident. I agree with the resident's findings and plan as documented. SUBJECTIVE: OBJECTIVE: ASSESSMENT AND PLAN:
[2019-02-22 11:15] LABS: MAGNESIUM 2.9 mg/dL (1.8-2.4)
--- NOTE | 2019-02-22 11:17 | PN ---
Progress Note, Physician History of Present Illness: SEDATED ON VENTILATOR LOW GRADE TEMP BP REMIANS LABILE WBC ELEVATED - Current Medication List Current Medications: Active Medications Acetaminophen (Ofirmev Injection -) 1,000 mg IVPB Q6H PRN PRN Reason: FEVER Calcitriol (Rocaltrol -) 0.25 mcg PO DAILY [facility] Last Admin: 02/21/19 10:23 Dose: Not Given Calcium Acetate (Phoslo -) 667 mg PO TIDCM [facility] Last Admin: 02/21/19 18:52 Dose: 667 mg Chlorhexidine Gluconate (Hibiclens For Decolonization -) 1 applic TP HS [facility] Last Admin: 02/21/19 22:32 Dose: 1 applic Clotrimazole (Lotrimin 1% Cream -) 1 applic TP BID [facility] Last Admin: 02/22/19 10:40 Dose: 1 applic Diltiazem HCl (Cardizem -) 30 mg PO TID [facility] Last Admin: 02/22/19 06:15 Dose: Not Given Propofol (Diprivan -) 1,000,000 mcg in 100 mls @ 3.096 mls/hr IVPB TITR [facility]; Protocol Last Admin: 02/22/19 10:39 Dose: 30 mcg/kg/min, 18.576 mls/hr Sodium Chloride (1/2 Normal Saline) 1,000 mls @ 75 mls/hr IV ASDIR [facility] Last Admin: 02/21/19 17:41 Dose: 75 mls/hr Norepinephrine Bitartrate 4, (000 mcg/ Dextrose) 500 mls @ 37.5 mls/hr IV TITR [facility]; Protocol Last Admin: 02/22/19 10:26 Dose: Not Given Piperacillin Sod/Tazobactam (Sod 2.25 gm/ Dextrose) 50 mls @ 100 mls/hr IVPB Q8H-IV [facility]; Protocol Last Admin: 02/22/19 10:44 Dose: 100 mls/hr Sodium Chloride (Normal Saline -) 250 mls @ 3,000 mls/hr IV PRN PRN PRN Reason: Hypotension during Dialysis Stop: 02/22/19 11:00 Sodium Chloride (Normal Saline -) 250 mls @ 3,000 mls/hr IV PRN PRN PRN Reason: Hypotension during Dialysis Stop: 02/22/19 16:14 Insulin Aspart (Novolog Vial Sliding Scale -) 1 vial SQ ACHS [facility]; Protocol Last Admin: 02/22/19 10:44 Dose: Not Given Lamotrigine (Lamictal -) 100 mg PO DAILY [facility] Last Admin: 02/21/19 10:23 Dose: Not Given Pantoprazole Sodium (Protonix Iv) 40 mg IVPUSH BID [facility] Last Admin: 02/22/19 10:40 Dose: 40 mg - Objective Vital Signs: Vital Signs Temperature 98.7 F 02/22/19 06:00 Pulse Rate 57 L 02/22/19 06:00 Respiratory Rate 14 02/22/19 09:15 Blood Pressure 130/59 L 02/22/19 06:00 O2 Sat by Pulse Oximetry (%) 98 02/22/19 00:18 Constitutional: Yes: No Distress Eyes: Yes: Conjunctiva Clear Cardiovascular: Yes: Regular Rate and Rhythm, S1, S2 Respiratory: Yes: Mechanically Ventilated Gastrointestinal: Yes: Normal Bowel Sounds, Soft. No: Tenderness Edema: No Labs: INR, PTT INR 1.22 (0.83-1.09) H 02/22/19 10:15 Assessment/Plan RESPIRATORY FAILURE PNEUMONIA ?CVA LEUKOCYTOSIS RENAL FAILURE CONTINUE VENTILATORY/ HEMODYNAMIC SUPPORT EMPIRIC ZOSYN
[2019-02-22 11:26] LABS: ALBUMIN 1.5 g/dl (3.4-5.0); BILIRUBIN,TOTAL 1.3 mg/dL (0.2-1); CALCIUM 8.1 mg/dL (8.5-10.1); CREATININE 4.1 mg/dL (0.55-1.3); POTASSIUM 4.1 mmol/L (3.5-5.1); TOT PROT 4.8 g/dl (6.4-8.2)
[2019-02-22 11:28] LABS: BLOOD UREA NITROGEN 117.4 mg/dL (7-18)
--- NOTE | 2019-02-22 13:23 | PROC ---
<Hollis Floyd - Last Filed: 02/22/19 13:22> Central Line Insertion Indication: Vasopressor Central Line: Dialysis Cath, Tri Lumen Anesthesia: 2% Lidocaine Sterile Technique: Yes Ultrasound Guided Assistance: Yes Position: Right Internal Jugular Post Insertion: Yes: Bilateral Breath Sounds, Bilateral Chest Expansion, Chest X-Ray Ordered Sterile Dressing Applied: Yes <Fabián Saxena MD - Last Filed: 02/24/19 13:05> Procedure Note Procedure: I supervised and was present during the entire procedure. Fabián Saxena MD
[2019-02-22] MEDS: CALCIUM ACETATE 667 MG CAPSULE (FP) PO SCH ×2 (13:48→18:51)
--- NOTE | 2019-02-22 13:48 | PN ---
Teaching Attending Note Name of Resident: Eb Harding ATTENDING PHYSICIAN STATEMENT I saw and evaluated the patient. I reviewed the resident's note and discussed the case with the resident. I agree with the resident's findings and plan as documented. SUBJECTIVE: Unable to participate in medical interview. Intubated, mechanically ventilated, sedated. Coffee ground material via NG tube resolved. OBJECTIVE: Tmax 100.3. Intubated/Sedated. Appears comfortable. Weaned off Levophed. Sedated with propofol. Last Vital Signs Temp Pulse Resp BP Pulse Ox 98.7 F 57 L 14 130/59 L 98 02/22/19 06:00 02/22/19 06:00 02/22/19 11:55 02/22/19 06:00 02/22/19 00:18 HEENT - ET tube in situ. NG tube with clearing of black/coffee ground material. Heart - S1, S2, RRR Lungs - good air entry bilaterally. Few basal crackles. Mechanically ventilated. Abdomen - Soft. Mild generalized tenderness with some wincing on deep palpation. Sluggish bowel sounds. R sided abdominal wall rug-burn like wound, without surrounding cellulitis. Extremities - mild edema. rug burn wound to inner aspect L knee with eschar, no surrounding erythema. Neuro - WILLARD. Moving extremities. Laboratory Results - last 24 hr 02/20/19 02/21/19 02/21/19 06:05 16:56 22:26 WBC RBC Hgb Hct MCV MCH MCHC RDW Plt Count MPV PT with INR INR PTT (Actin FS) Sodium Potassium Chloride Carbon Dioxide Anion Gap BUN Creatinine Est GFR (CKD-EPI)AfAm Est GFR (CKD-EPI)NonAf POC Glucometer 123 149 Random Glucose Calcium Phosphorus Magnesium Total Bilirubin AST ALT Alkaline Phosphatase Total Protein Albumin AMADEO Screen Negative 02/22/19 02/22/19 02/22/19 10:15 10:15 10:15 WBC 12.8 H RBC 3.54 L Hgb 11.2 L Hct 33.8 L MCV 95.4 MCH 31.7 MCHC 33.2 RDW 13.9 Plt Count 111 L MPV 10.8 PT with INR INR PTT (Actin FS) Sodium 144 Potassium 4.1 Chloride 105 Carbon Dioxide 29 Anion Gap 10 BUN 117.4 H* Creatinine 4.1 H Est GFR (CKD-EPI)AfAm 16.32 Est GFR (CKD-EPI)NonAf 14.08 POC Glucometer Random Glucose 131 H Calcium 8.1 L Phosphorus 7.0 H Magnesium 2.9 H Total Bilirubin 1.3 H AST 40 H ALT 36 Alkaline Phosphatase 107 Total Protein 4.8 L Albumin 1.5 L AMADEO Screen 02/22/19 02/22/19 10:15 10:42 WBC RBC Hgb Hct MCV MCH MCHC RDW Plt Count MPV PT with INR 14.40 H INR 1.22 H PTT (Actin FS) 29.4 Sodium Potassium Chloride Carbon Dioxide Anion Gap BUN Creatinine Est GFR (CKD-EPI)AfAm Est GFR (CKD-EPI)NonAf POC Glucometer 125 Random Glucose Calcium Phosphorus Magnesium Total Bilirubin AST ALT Alkaline Phosphatase Total Protein Albumin AM[facility]O Screen Current Medications Generic Name Dose Route Start Last Admin Trade Name Freq PRN Reason Stop Dose Admin Acetaminophen 1,000 mg 02/20/19 21:53 Ofirmev Injection - IVPB Q6H PRN FEVER Calcitriol 0.25 mcg 02/17/19 10:00 02/21/19 10:23 Rocaltrol - PO Not Given DAILY [facility] Calcium Acetate 667 mg 02/17/19 08:00 02/21/19 18:52 Phoslo - PO 667 mg TIDCM [facility] Administration Chlorhexidine Gluconate 1 applic 02/17/19 22:00 02/21/19 22:32 Hibiclens For Decolonization - TP 1 applic HS [facility] Administration Clotrimazole 1 applic 02/17/19 10:00 02/22/19 10:40 Lotrimin 1% Cream - TP 1 applic BID [facility] Administration Diltiazem HCl 30 mg 02/17/19 14:00 02/22/19 06:15 Cardizem - PO Not Given TID [facility] Propofol 1,000,000 mcg in 100 mls @ 3.096 mls/hr 02/18/19 08:30 02/22/19 10: 39 Diprivan - IVPB 30 mcg/kg/min TITR [facility] 18.576 mls/hr Administration Protocol 5 MCG/KG/MIN Sodium Chloride 1,000 mls @ 75 mls/hr 02/18/19 13:40 02/21/19 17:41 1/2 Normal Saline IV 75 mls/hr ASDIR [facility] Administration Norepinephrine Bitartrate 4, 500 mls @ 37.5 mls/hr 02/20/19 07:30 02/22/19 10 :26 000 mcg/ Dextrose IV Not Given TITR [facility] Protocol 5 MCG/MIN Piperacillin Sod/Tazobactam 50 mls @ 100 mls/hr 02/21/19 02:00 02/22/19 10:44 Sod 2.25 gm/ Dextrose IVPB 100 mls/hr Q8H-IV [facility] Administration Protocol Sodium Chloride 250 mls @ 3,000 mls/hr 02/21/19 11:00 Normal Saline - IV 02/22/19 11:00 PRN PRN Hypotension during Dialysis Sodium Chloride 250 mls @ 3,000 mls/hr 02/21/19 16:14 Normal Saline - IV 02/22/19 16:14 PRN PRN Hypotension during Dialysis Insulin Aspart 1 vial 02/17/19 22:00 02/22/19 10:44 Novolog Vial Sliding Scale - SQ Not Given ACHS [facility] Protocol Lamotrigine 100 mg 02/18/19 10:00 02/21/19 10:23 Lamictal - PO Not Given DAILY [facility] Pantoprazole Sodium 40 mg 02/19/19 11:30 02/22/19 10:40 Protonix Iv IVPUSH 40 mg BID [facility] Administration Home Medications Medication Instructions Recorded Allopurinol [Zyloprim -] 200 mg DAILY 02/17/19 Amlodipine Besylate 10 mg PO DAILY 02/17/19 Diazepam [Valium] 10 mg PO TID 02/17/19 Insulin Aspart [Novolog] 2 units TID 02/17/19 Insulin Glargine,Hum.rec.anlog 95 unit HS 02/17/19 [Young Griffith] Lamotrigine 100 mg DAILY 02/17/19 Losartan/Hydrochlorothiazide 1 tablet DAILY 02/17/19 [Losartan-Hctz 100-12.5 mg Tab] Quetiapine Fumarate [Seroquel -] 200 mg PO HS 02/17/19 ASSESSMENT/PLAN: 68 year old male with history of DM 2, HTN, HLD, CKD, Obesity, Bipolar Disorder , Depression, Anxiety, lives alone, found on floor of his house by his brother, noted to have SMITA, DKA, Multiple electrolyte abnormalities, AMS. 1. Acute Hypercapneic Respiratory Failure and Septic Shock, secondary to bilateral Pneumonia ?Aspiration. Intubated. CT C/A/P - bilateral consolidation. Weaned off Levophed Leukocytosis improved. Continue IV Zosyn to cover for possible aspiration. ID following. Sputum Cx pending. Urine legionella Ag negative. 2. Syncope/Fall with LOC and Acute Encephalopathy (secondary to Uremia vs Hypernatremia vs Acidosis) Initially recovered mental status after adequate hydration and electrolyte replacement, but then became unresponsive in respiratory distress requiring intubation. Initial CT Head negative for acute findings, repeat CT shows no interval change. No telemonitoring events. Echo - normal EF, small pericardial effusion, no signs of tamponade. MRI recommended by Neurology 3. Upper GI Bleed. Coffee-ground material noticed in NG tube, now cleared. PPI. GI following. H/H monitoring. 4. Atrial Fibrillation with RVR - resolved. Cardizem drip held. Cardizem po also held for now given borderline BP. Heparin drip held due to coffee ground material in NG tube. 5. 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 Renal US - no obstruction. HD catheter blocked during HD 02/21 - for replacement of HD catheter. 5. Hypernatremia sec to dehydration - improved with HD 6. Hypokalemia/Hypocalcemia - repleted/resolved. Started on Calcitriol and Calcium supplementation. 7. DKA - resolved. Insulin drip discontinued. Endocrine following. 8. Bipolar Disorder - normally on Seroquel, Lamictal, Diazepam. 9. HTN - Norvasc, Losartan, HCTZ held due to shock. 10. Wounds R abdominal wall and L knee ? sec to fall/carpet burn, multiple decubitus ulcers buttocks and R hip - no surrounding erythema/infection. Wound Care consulted. DVT Px - Heparin drip held due to coffee ground material via NG tube. GI Px - PPI IV
[2019-02-22] MEDS: CALCITRIOL 0.25 MCG CAPSULE (FP) PO SCH (13:53)
--- NOTE | 2019-02-22 13:55 | PN ---
Progress Note (short form) - Note Progress Note: covering dr momin Impression 1. SMITA 2. rhabdo 3. dka 4. altered mental status 5. hyperkalemia 6. resp failure Current Medications Acetaminophen (Ofirmev Injection -) 1,000 mg IVPB Q6H PRN PRN Reason: FEVER Calcitriol (Rocaltrol -) 0.25 mcg PO DAILY [facility] Last Admin: 02/21/19 10:23 Dose: Not Given Calcium Acetate (Phoslo -) 667 mg PO TIDCM [facility] Last Admin: 02/22/19 13:48 Dose: Not Given Chlorhexidine Gluconate (Hibiclens For Decolonization -) 1 applic TP HS [facility] Last Admin: 02/21/19 22:32 Dose: 1 applic Clotrimazole (Lotrimin 1% Cream -) 1 applic TP BID [facility] Last Admin: 02/22/19 10:40 Dose: 1 applic Diltiazem HCl (Cardizem -) 30 mg PO TID [facility] Last Admin: 02/22/19 06:15 Dose: Not Given Propofol (Diprivan -) 1,000,000 mcg in 100 mls @ 3.096 mls/hr IVPB TITR [facility]; Protocol Last Admin: 02/22/19 10:39 Dose: 30 mcg/kg/min, 18.576 mls/hr Sodium Chloride (1/2 Normal Saline) 1,000 mls @ 75 mls/hr IV ASDIR [facility] Last Admin: 02/21/19 17:41 Dose: 75 mls/hr Norepinephrine Bitartrate 4, (000 mcg/ Dextrose) 500 mls @ 37.5 mls/hr IV TITR [facility]; Protocol Last Admin: 02/22/19 10:26 Dose: Not Given Piperacillin Sod/Tazobactam (Sod 2.25 gm/ Dextrose) 50 mls @ 100 mls/hr IVPB Q8H-IV [facility]; Protocol Last Admin: 02/22/19 10:44 Dose: 100 mls/hr Sodium Chloride (Normal Saline -) 250 mls @ 3,000 mls/hr IV PRN PRN PRN Reason: Hypotension during Dialysis Stop: 02/22/19 11:00 Sodium Chloride (Normal Saline -) 250 mls @ 3,000 mls/hr IV PRN PRN PRN Reason: Hypotension during Dialysis Stop: 02/22/19 16:14 Insulin Aspart (Novolog Vial Sliding Scale -) 1 vial SQ ACHS [facility]; Protocol Last Admin: 02/22/19 10:44 Dose: Not Given Lamotrigine (Lamictal -) 100 mg PO DAILY [facility] Last Admin: 02/21/19 10:23 Dose: Not Given Pantoprazole Sodium (Protonix Iv) 40 mg IVPUSH BID [facility] Last Admin: 02/22/19 10:40 Dose: 40 mg Last Vital Signs Temp Pulse Resp BP Pulse Ox 98.7 F 57 L 14 130/59 L 98 02/22/19 06:00 02/22/19 06:00 02/22/19 11:55 02/22/19 06:00 02/22/19 00:18 CBC, BMP 02/22/19 10:15 02/22/19 10:15 Plan - HD today - monitor urine output - will likely be extubated today, discussed with ICU - follow serologies - weaning per pulmonary - monitor bp
[2019-02-22] MEDS: lamoTRIgine 100 MG TABLET (FP) PO SCH (14:19)
[2019-02-22] MEDS: SODIUM CHLORIDE 0.45% 1,000 ML IV SCH (18:49)
[2019-02-22] MEDS: CHLORHEXIDINE GLUCONATE 4% CLEANSER FOR DECOLONIZATION TP SCH (21:41)
--- NOTE | 2019-02-23 00:22 | PN ---
Progress Note, Physician Chief Complaint: resting comfortable - Current Medication List Current Medications: Active Medications Acetaminophen (Ofirmev Injection -) 1,000 mg IVPB Q6H PRN PRN Reason: FEVER Calcitriol (Rocaltrol -) 0.25 mcg PO DAILY [facility] Last Admin: 02/22/19 13:53 Dose: Not Given Calcium Acetate (Phoslo -) 667 mg PO TIDCM [facility] Last Admin: 02/22/19 18:51 Dose: Not Given Chlorhexidine Gluconate (Hibiclens For Decolonization -) 1 applic TP HS [facility] Last Admin: 02/22/19 21:41 Dose: 1 applic Clotrimazole (Lotrimin 1% Cream -) 1 applic TP BID [facility] Last Admin: 02/22/19 21:42 Dose: 1 applic Diltiazem HCl (Cardizem -) 30 mg PO TID [facility] Last Admin: 02/22/19 21:39 Dose: Not Given Propofol (Diprivan -) 1,000,000 mcg in 100 mls @ 3.096 mls/hr IVPB TITR [facility]; Protocol Last Admin: 02/22/19 21:40 Dose: 30 mcg/kg/min, 18.576 mls/hr Sodium Chloride (1/2 Normal Saline) 1,000 mls @ 75 mls/hr IV ASDIR [facility] Last Admin: 02/22/19 18:49 Dose: 75 mls/hr Norepinephrine Bitartrate 4, (000 mcg/ Dextrose) 500 mls @ 37.5 mls/hr IV TITR [facility]; Protocol Last Titration: 02/22/19 15:26 Dose: 2 mcg/min, 15 mls/hr Piperacillin Sod/Tazobactam (Sod 2.25 gm/ Dextrose) 50 mls @ 100 mls/hr IVPB Q8H-IV [facility]; Protocol Last Admin: 02/22/19 10:44 Dose: 100 mls/hr Sodium Chloride (Normal Saline -) 250 mls @ 3,000 mls/hr IV PRN PRN PRN Reason: Hypotension during Dialysis Stop: 02/22/19 11:00 Sodium Chloride (Normal Saline -) 250 mls @ 3,000 mls/hr IV PRN PRN PRN Reason: Hypotension during Dialysis Stop: 02/22/19 16:14 Insulin Aspart (Novolog Vial Sliding Scale -) 1 vial SQ ACHS [facility]; Protocol Last Admin: 02/22/19 21:39 Dose: Not Given Lamotrigine (Lamictal -) 100 mg PO DAILY [facility] Last Admin: 02/22/19 14:19 Dose: 100 mg Pantoprazole Sodium (Protonix Iv) 40 mg IVPUSH BID [facility] Last Admin: 02/22/19 21:39 Dose: 40 mg - Objective Vital Signs: Vital Signs Temperature 98.3 F 02/22/19 22:00 Pulse Rate 55 L 02/22/19 22:00 Respiratory Rate 16 02/22/19 22:00 Blood Pressure 109/55 L 02/22/19 22:00 O2 Sat by Pulse Oximetry (%) 98 02/22/19 21:00 Constitutional: Yes: Calm Eyes: Yes: EOM Intact HENT: Yes: Normocephalic Neck: Yes: Trachea Midline Cardiovascular: Yes: Tachycardia Respiratory: Yes: Mechanically Ventilated Gastrointestinal: Yes: Normal Bowel Sounds ...Rectal Exam: Yes: Deferred Musculoskeletal: Yes: Joint Swelling, Muscle Pain, Muscle Weakness Extremities: Yes: Cold, Delayed Capillary Refill Edema: LLE: 2+, RLE: 2+ Labs: CBC, BMP 02/22/19 10:15 02/22/19 10:15 INR, PTT INR 1.22 (0.83-1.09) H 02/22/19 10:15 Problem List - Problems (1) DKA (diabetic ketoacidoses) Problems reviewed: Yes Code(s): E11.10 - TYPE 2 DIABETES MELLITUS WITH KETOACIDOSIS WITHOUT COMA Qualifiers: Diabetes mellitus type: type 2 (2) HTN (hypertension) Problems reviewed: Yes Code(s): I10 - ESSENTIAL (PRIMARY) HYPERTENSION (3) Hypercholesterolemia Problems reviewed: Yes Code(s): E78.00 - PURE HYPERCHOLESTEROLEMIA, UNSPECIFIED (4) Leukocytosis Problems reviewed: Yes Code(s): D72.829 - ELEVATED WHITE BLOOD CELL COUNT, UNSPECIFIED (5) Renal failure Code(s): N19 - UNSPECIFIED KIDNEY FAILURE (6) Rhabdomyolysis Code(s): M62.82 - RHABDOMYOLYSIS (7) Uremia Code(s): N19 - UNSPECIFIED KIDNEY FAILURE Assessment/Plan Current Active Problems Bipolar disorder (Acute) Coffee ground emesis (Acute) DKA (diabetic ketoacidoses) (Acute) HTN (hypertension) (Acute) Hypercholesterolemia (Acute) Leukocytosis (Acute) Paroxysmal atrial fibrillation with rapid ventricular response (Acute) Renal failure (Acute) Rhabdomyolysis (Acute) Stroke (Acute) Unstageable pressure injury of skin and tissue (Acute) Uremia (Acute) Abnormal Lab Results 02/22/19 02/22/19 02/22/19 10:15 10:15 10:15 WBC 12.8 H RBC 3.54 L Hgb 11.2 L Hct 33.8 L Plt Count 111 L PT with INR INR BUN 117.4 H* Creatinine 4.1 H Random Glucose 131 H Calcium 8.1 L Phosphorus 7.0 H Magnesium 2.9 H Total Bilirubin 1.3 H AST 40 H Total Protein 4.8 L Albumin 1.5 L 02/22/19 10:15 WBC RBC Hgb Hct Plt Count PT with INR 14.40 H INR 1.22 H BUN Creatinine Random Glucose Calcium Phosphorus Magnesium Total Bilirubin AST Total Protein Albumin Laboratory Results - last 24 hr 02/22/19 02/22/19 02/22/19 10:15 10:15 10:15 WBC 12.8 H RBC 3.54 L Hgb 11.2 L Hct 33.8 L MCV 95.4 MCH 31.7 MCHC 33.2 RDW 13.9 Plt Count 111 L MPV 10.8 PT with INR INR PTT (Actin FS) Sodium 144 Potassium 4.1 Chloride 105 Carbon Dioxide 29 Anion Gap 10 BUN 117.4 H* Creatinine 4.1 H Est GFR (CKD-EPI)AfAm 16.32 Est GFR (CKD-EPI)NonAf 14.08 POC Glucometer Random Glucose 131 H Calcium 8.1 L Phosphorus 7.0 H Magnesium 2.9 H Total Bilirubin 1.3 H AST 40 H ALT 36 Alkaline Phosphatase 107 Total Protein 4.8 L Albumin 1.5 L 02/22/19 02/22/19 02/22/19 10:15 10:42 14:23 WBC RBC Hgb Hct MCV MCH MCHC RDW Plt Count MPV PT with INR 14.40 H INR 1.22 H PTT (Actin FS) 29.4 Sodium Potassium Chloride Carbon Dioxide Anion Gap BUN Creatinine Est GFR (CKD-EPI)AfAm Est GFR (CKD-EPI)NonAf POC Glucometer 125 129 Random Glucose Calcium Phosphorus Magnesium Total Bilirubin AST ALT Alkaline Phosphatase Total Protein Albumin 02/22/19 02/22/19 18:52 21:24 WBC RBC Hgb Hct MCV MCH MCHC RDW Plt Count MPV PT with INR INR PTT (Actin FS) Sodium Potassium Chloride Carbon Dioxide Anion Gap BUN Creatinine Est GFR (CKD-EPI)AfAm Est GFR (CKD-EPI)NonAf POC Glucometer 155 146 Random Glucose Calcium Phosphorus Magnesium Total Bilirubin AST ALT Alkaline Phosphatase Total Protein Albumin plan: bgm qid novolog scale as hd has improved glycemia supportive care respiratory assist iv antibiotics
[2019-02-23] MEDS ORDERED: PIPERACILLIN/TAZOBACTAM 2.25 GM VIAL IVPB ONE ×3 (02:49→17:19)
[2019-02-23] MEDS ORDERED: DEXTROSE 5%-WATER - 50 ML IVPB ONE ×3 (02:49→17:19)
[2019-02-23] MEDS: PIPERACILLIN/TAZOB 2.25 GM 2.25 GM in DEXTROSE 5%-WATER - 50 ML IVPB SCH ×4 (02:51→17:23)
[2019-02-23] MEDS: PROPOFOL 1,000,000 MCG/100 ML VIAL IVPB SCH (04:46)
[2019-02-23] MEDS: ACETAMINOPHEN 1000 MG/100 ML VIAL (NON FORMULARY) IVPB PRN (05:19)
[2019-02-23] MEDS: dilTIAZem HCL 30 MG TABLET (FP) PO SCH ×3 (06:29→21:24)
[2019-02-23] MEDS: INSULIN SLIDING SCALE (NOVOLOG) 1 VIAL SQ SCH ×4 (06:29→21:33)
--- NOTE | 2019-02-23 07:39 | PN ---
Progress Note (short form) - Note Progress Note: Chief Complaint: Events noted, notes reviewed, remains intubated and sedated in no acute distress, remains on pressors/Norepinephrine History of Present Illness: Seen and examined in the ICU. Events noted, notes reviewed, remains intubated and sedated in no acute distress, remains on pressors/Norepinephrine - Current Medication List Current Medications Acetaminophen (Ofirmev Injection -) 1,000 mg IVPB Q6H PRN PRN Reason: FEVER Last Admin: 02/23/19 05:19 Dose: 1,000 mg Calcitriol (Rocaltrol -) 0.25 mcg PO DAILY [facility] Last Admin: 02/22/19 13:53 Dose: Not Given Calcium Acetate (Phoslo -) 667 mg PO TIDCM [facility] Last Admin: 02/22/19 18:51 Dose: Not Given Chlorhexidine Gluconate (Hibiclens For Decolonization -) 1 applic TP HS [facility] Last Admin: 02/22/19 21:41 Dose: 1 applic Clotrimazole (Lotrimin 1% Cream -) 1 applic TP BID [facility] Last Admin: 02/22/19 21:42 Dose: 1 applic Diltiazem HCl (Cardizem -) 30 mg PO TID [facility] Last Admin: 02/23/19 06:29 Dose: Not Given Propofol (Diprivan -) 1,000,000 mcg in 100 mls @ 3.096 mls/hr IVPB TITR [facility]; Protocol Last Admin: 02/23/19 04:46 Dose: 30 mcg/kg/min, 18.576 mls/hr Sodium Chloride (1/2 Normal Saline) 1,000 mls @ 75 mls/hr IV ASDIR [facility] Last Admin: 02/22/19 18:49 Dose: 75 mls/hr Norepinephrine Bitartrate 4, (000 mcg/ Dextrose) 500 mls @ 37.5 mls/hr IV TITR [facility]; Protocol Last Titration: 02/22/19 23:00 Dose: 2 mcg/min, 15 mls/hr Piperacillin Sod/Tazobactam (Sod 2.25 gm/ Dextrose) 50 mls @ 100 mls/hr IVPB Q8H-IV [facility]; Protocol Last Admin: 02/23/19 02:51 Dose: 100 mls/hr Sodium Chloride (Normal Saline -) 250 mls @ 3,000 mls/hr IV PRN PRN PRN Reason: Hypotension during Dialysis Stop: 02/22/19 11:00 Sodium Chloride (Normal Saline -) 250 mls @ 3,000 mls/hr IV PRN PRN PRN Reason: Hypotension during Dialysis Stop: 02/22/19 16:14 Insulin Aspart (Novolog Vial Sliding Scale -) 1 vial SQ ACHS [facility]; Protocol Last Admin: 02/23/19 06:29 Dose: 2 units Lamotrigine (Lamictal -) 100 mg PO DAILY [facility] Last Admin: 02/22/19 14:19 Dose: 100 mg Pantoprazole Sodium (Protonix Iv) 40 mg IVPUSH BID [facility] Last Admin: 02/22/19 21:39 Dose: 40 mg Review of Systems Unable to obtain, intubated and sedated` - Objective Vital Signs: Neck: Supple Negative JVD No Bruit Respiratory: Scattered Rhonchi Bilaterally Cardiovascular: S1 S2 Regular Rate and Rhythm Gastrointestinal: Soft Benign Normal Bowel Sounds Ext: No Edema Labs: Pending AM blood test ABG Results ABG pH 7.51 (7.35-7.45) H 02/19/19 07:30 ABG pCO2 at Pt Temp 37.5 mmHg (35-45) 02/19/19 07:30 ABG pO2 at Pt Temp 168 mmHg (80-100) H 02/19/19 07:30 ABG HCO3 29.5 mmol/L (22-27) H 02/19/19 07:30 ABG O2 Sat (Measured) 99.2 % (95-98) H 02/19/19 07:30 ABG O2 Content 18.9 % vol 02/19/19 07:30 ABG Base Excess 6.4 meq/l (-2-2) H 02/19/19 07:30 Hepatic Panel Total Bilirubin 1.3 mg/dL (0.2-1) H 02/22/19 10:15 AST 40 U/L (15-37) H 02/22/19 10:15 ALT 36 U/L (13-61) 02/22/19 10:15 Alkaline Phosphatase 107 U/L (45-117) 02/22/19 10:15 Albumin 1.5 g/dl (3.4-5.0) L 02/22/19 10:15 INR, PTT INR 1.22 (0.83-1.09) H 02/22/19 10:15 Assessment/Plan ASSESSMENT: 1. Questionable syncope, altered mental status- currently sedated/intubated 2. Acute respiratory failure 3. Coronary artery disease/visual coronary artery calcification angina pectoris 4. Diastolic LV dysfunction with clinical class 0 NYHA classification LV failure 5. PAF currently in sinus rhythm [id number] score of either 2-3 currently on no A/C recent coffee ground emesis/GI bleed 6. HTN, currently hypotensive on pressors 7. Hypercholesterolemia 8. Acute on CKD requiring HD 9. Bipolar disorder, depression and anxiety 10. History of coffee ground emesis- resolved etiology unclear PLAN: 1. Resumption of anticoagulation once full hemostasis is achieved, Heparin initially 2. HD per renal service 3. Attempt to wean off pressors hemodynamics tolerating 4. Continue Cardizem withhold pending hemodynamic stability gnosticism 5. Ventilator management as per the critical care team, attempt to wean off ventilator once off of sedation 6. Antibiotics as per the primary ream 7. Future GI evaluation for the above noted GI bleed would be recommended specially with planned watermelon inspector A/C utilization Dougie Wylie M.D.
[2019-02-23 07:41] LABS: BASO % 0.4 % (0-2.0); EOS % 2.8 % (0-4.5); HEMATOCRIT 32.7 % (35.4-49); LYMPH % 4.7 % (8-40); MCH 31.7 pg (25.7-33.7); MCHC 33.5 g/dl (32.0-35.9); MEAN CELL VOLUME 94.5 fl (80-96); MEAN PLT VOLUME 10.3 fl (7.5-11.1); MONO % 6.1 % (3.8-10.2); PLATELET COUNT 117 K/MM3 (134-434); RBC 3.46 M/mm3 (4.00-5.60); RDW 13.7 % (11.9-15.9); WHITE BLOOD COUNT 9.2 K/mm3 (4.0-10.0)
[2019-02-23 07:59] LABS: ALBUMIN 1.6 g/dl (3.4-5.0); BILIRUBIN,TOTAL 1.7 mg/dL (0.2-1); BLOOD UREA NITROGEN 55.4 mg/dL (7-18); CALCIUM 7.5 mg/dL (8.5-10.1); CREATININE 2.5 mg/dL (0.55-1.3); MAGNESIUM 2.1 mg/dL (1.8-2.4); PHOSPHOROUS 4.8 mg/dL (2.5-4.9); POTASSIUM 3.8 mmol/L (3.5-5.1)
[2019-02-23] MEDS: PANTOPRAZOLE SODIUM 40 MG VIAL IVPUSH SCH ×2 (09:03→22:30)
[2019-02-23] MEDS: CALCITRIOL 0.25 MCG CAPSULE (FP) PO SCH (09:04)
[2019-02-23] MEDS: CALCIUM ACETATE 667 MG CAPSULE (FP) PO SCH ×3 (09:04→17:23)
[2019-02-23] MEDS: lamoTRIgine 100 MG TABLET (FP) PO SCH (09:04)
[2019-02-23] MEDS: CLOTRIMAZOLE 1% CREAM 15 GM TUBE TP SCH ×2 (10:00→22:31)
--- NOTE | 2019-02-23 11:25 | PN ---
Teaching Attending Note Name of Resident: Ziyad Byrne ATTENDING PHYSICIAN STATEMENT I saw and evaluated the patient. I reviewed the resident's note and discussed the case with the resident. I agree with the resident's findings and plan as documented. SUBJECTIVE: Pt seen and examined in the ICU. Intubated, awake, following commands. Tolerated CPAP/PS trials and subsequently extubated during rounds. OBJECTIVE: Vital Signs Period Temp Pulse Resp BP Sys/Verdugo Pulse Ox Last 24 Hr 98 F-100.4 F 48-77 10-18 86-161/50-92 98-98 Intake & Output 02/20/19 02/21/19 02/22/19 02/23/19 23:59 23:59 23:59 23:59 Intake Total 2007 2052.4 1684.6 910.2 Output Total 2230 1300 3200 300 Balance -222 752.4 -1515.4 610.2 Weight 100.516 kg 99.881 kg Gen: extubated Heart: RRR lung: decreased breath sounds at the bases Abd: soft, nontender Ext: UE edema CBC, BMP 02/23/19 06:00 02/23/19 06:00 Active Medications Acetaminophen (Ofirmev Injection -) 1,000 mg IVPB Q6H PRN PRN Reason: FEVER Last Admin: 02/23/19 05:19 Dose: 1,000 mg Calcitriol (Rocaltrol -) 0.25 mcg PO DAILY [facility] Last Admin: 02/23/19 09:04 Dose: Not Given Calcium Acetate (Phoslo -) 667 mg PO TIDCM [facility] Last Admin: 02/23/19 09:04 Dose: Not Given Chlorhexidine Gluconate (Hibiclens For Decolonization -) 1 applic TP HS [facility] Last Admin: 02/22/19 21:41 Dose: 1 applic Clotrimazole (Lotrimin 1% Cream -) 1 applic TP BID [facility] Last Admin: 02/22/19 21:42 Dose: 1 applic Diltiazem HCl (Cardizem -) 30 mg PO TID [facility] Last Admin: 02/23/19 06:29 Dose: Not Given Propofol (Diprivan -) 1,000,000 mcg in 100 mls @ 3.096 mls/hr IVPB TITR [facility]; Protocol Last Admin: 02/23/19 04:46 Dose: 30 mcg/kg/min, 18.576 mls/hr Sodium Chloride (1/2 Normal Saline) 1,000 mls @ 75 mls/hr IV ASDIR [facility] Last Admin: 02/22/19 18:49 Dose: 75 mls/hr Norepinephrine Bitartrate 4, (000 mcg/ Dextrose) 500 mls @ 37.5 mls/hr IV TITR [facility]; Protocol Last Titration: 02/23/19 08:21 Dose: 0 mcg/min, 0 mls/hr Piperacillin Sod/Tazobactam (Sod 2.25 gm/ Dextrose) 50 mls @ 100 mls/hr IVPB Q8H-IV [facility]; Protocol Last Admin: 02/23/19 09:04 Dose: 100 mls/hr Sodium Chloride (Normal Saline -) 250 mls @ 3,000 mls/hr IV PRN PRN PRN Reason: Hypotension during Dialysis Stop: 02/22/19 11:00 Sodium Chloride (Normal Saline -) 250 mls @ 3,000 mls/hr IV PRN PRN PRN Reason: Hypotension during Dialysis Stop: 02/22/19 16:14 Insulin Aspart (Novolog Vial Sliding Scale -) 1 vial SQ ACHS [facility]; Protocol Last Admin: 02/23/19 06:29 Dose: 2 units Lamotrigine (Lamictal -) 100 mg PO DAILY [facility] Last Admin: 02/23/19 09:04 Dose: Not Given Pantoprazole Sodium (Protonix Iv) 40 mg IVPUSH BID [facility] Last Admin: 02/23/19 09:03 Dose: 40 mg ASSESSMENT AND PLAN: Altered Mental Status/Syncope Acute Respiratory Failure Acute on Chronic Renal Failure requiring HD Rhabdomyolysis Paroxysmal Atrial Fibrillation HTN Hypercholesterolemia Anemia/Thrombocytopenia - pt extubated - HD per renal - IVF - off pressors, maintain MAP >65 - monitor urine output, creatinine - rate control - holding anticoagulation for possible GI bleed - DVT/GI prophylaxis - continue ICU monitoring critical care time spent in reviewing chart, evaluating patient and formulating plan 35 min
--- NOTE | 2019-02-23 11:39 | PN ---
Progress Note, Physician History of Present Illness: AWAKE, ALERT TODAY LOW GRADE TEMP WEANING ATTEMPTS TODAY WBC IMPROVED BC (-) SPUTUM NORMAL VERONICA LEGIONELLA AG (-) - Current Medication List Current Medications: Active Medications Acetaminophen (Ofirmev Injection -) 1,000 mg IVPB Q6H PRN PRN Reason: FEVER Last Admin: 02/23/19 05:19 Dose: 1,000 mg Calcitriol (Rocaltrol -) 0.25 mcg PO DAILY [facility] Last Admin: 02/23/19 09:04 Dose: Not Given Calcium Acetate (Phoslo -) 667 mg PO TIDCM [facility] Last Admin: 02/23/19 09:04 Dose: Not Given Chlorhexidine Gluconate (Hibiclens For Decolonization -) 1 applic TP HS [facility] Last Admin: 02/22/19 21:41 Dose: 1 applic Clotrimazole (Lotrimin 1% Cream -) 1 applic TP BID [facility] Last Admin: 02/22/19 21:42 Dose: 1 applic Diltiazem HCl (Cardizem -) 30 mg PO TID [facility] Last Admin: 02/23/19 06:29 Dose: Not Given Propofol (Diprivan -) 1,000,000 mcg in 100 mls @ 3.096 mls/hr IVPB TITR [facility]; Protocol Last Admin: 02/23/19 04:46 Dose: 30 mcg/kg/min, 18.576 mls/hr Sodium Chloride (1/2 Normal Saline) 1,000 mls @ 75 mls/hr IV ASDIR [facility] Last Admin: 02/22/19 18:49 Dose: 75 mls/hr Norepinephrine Bitartrate 4, (000 mcg/ Dextrose) 500 mls @ 37.5 mls/hr IV TITR [facility]; Protocol Last Titration: 02/23/19 08:21 Dose: 0 mcg/min, 0 mls/hr Piperacillin Sod/Tazobactam (Sod 2.25 gm/ Dextrose) 50 mls @ 100 mls/hr IVPB Q8H-IV [facility]; Protocol Last Admin: 02/23/19 09:04 Dose: 100 mls/hr Sodium Chloride (Normal Saline -) 250 mls @ 3,000 mls/hr IV PRN PRN PRN Reason: Hypotension during Dialysis Stop: 02/22/19 11:00 Sodium Chloride (Normal Saline -) 250 mls @ 3,000 mls/hr IV PRN PRN PRN Reason: Hypotension during Dialysis Stop: 02/22/19 16:14 Insulin Aspart (Novolog Vial Sliding Scale -) 1 vial SQ ACHS [facility]; Protocol Last Admin: 02/23/19 06:29 Dose: 2 units Lamotrigine (Lamictal -) 100 mg PO DAILY [facility] Last Admin: 02/23/19 09:04 Dose: Not Given Pantoprazole Sodium (Protonix Iv) 40 mg IVPUSH BID [facility] Last Admin: 02/23/19 09:03 Dose: 40 mg - Objective Vital Signs: Vital Signs Temperature 98 F 02/23/19 10:33 Pulse Rate 56 L 02/23/19 10:33 Respiratory Rate 16 02/23/19 10:33 Blood Pressure 110/56 L 02/23/19 10:33 O2 Sat by Pulse Oximetry (%) 98 02/23/19 08:48 Constitutional: Yes: No Distress Eyes: Yes: Conjunctiva Clear Cardiovascular: Yes: Regular Rate and Rhythm, S1, S2 Respiratory: Yes: Mechanically Ventilated Gastrointestinal: Yes: Normal Bowel Sounds, Soft. No: Tenderness Edema: Yes Labs: CBC, BMP 02/23/19 06:00 02/23/19 06:00 INR, PTT INR 1.22 (0.83-1.09) H 02/22/19 10:15 Assessment/Plan RESPIRATORY FAILURE PNEUMONIA ?CVA LEUKOCYTOSIS RESOLVED RENAL FAILURE CONTINUE VENTILATORY/ HEMODYNAMIC SUPPORT EMPIRIC ZOSYN
--- NOTE | 2019-02-23 13:45 | PN ---
Progress Note (short form) - Note Progress Note: SUBJECTIVE: Unable to participate in medical interview. Intubated, mechanically ventilated, off sedation. Coffee ground material via NG tube resolved. OBJECTIVE: Tmax 100.4. Intubated. Awake off sedation, appears comfortable. Weaned off Levophed. Last Vital Signs Temp Pulse Resp BP Pulse Ox 98 F 61 18 122/73 99 02/23/19 10:33 02/23/19 12:48 02/23/19 12:00 02/23/19 12:00 02/23/19 12:48 HEENT - ET tube in situ. NG tube with clearing of black/coffee ground material. Heart - S1, S2, RRR Lungs - good air entry bilaterally. Few basal crackles. Mechanically ventilated. RIJ catheter placed. Abdomen - Soft. Mild generalized tenderness with some wincing on deep palpation. Sluggish bowel sounds. R sided abdominal wall rug-burn like wound, without surrounding cellulitis. Extremities - mild edema. rug burn wound to inner aspect L knee with eschar, no surrounding erythema. Neuro - WILLARD. Moving extremities. Laboratory Results - last 24 hr 02/22/19 02/22/19 02/22/19 14:23 18:52 21:24 WBC RBC Hgb Hct MCV MCH MCHC RDW Plt Count MPV Absolute Neuts (auto) Neutrophils % Lymphocytes % Monocytes % Eosinophils % Basophils % Nucleated RBC % Sodium Potassium Chloride Carbon Dioxide Anion Gap BUN Creatinine Est GFR (CKD-EPI)AfAm Est GFR (CKD-EPI)NonAf POC Glucometer 129 155 146 Random Glucose Calcium Phosphorus Magnesium Total Bilirubin AST ALT Alkaline Phosphatase Total Protein Albumin 02/23/19 02/23/19 02/23/19 05:04 06:00 06:00 WBC 9.2 RBC 3.46 L Hgb 11.0 L Hct 32.7 L MCV 94.5 MCH 31.7 MCHC 33.5 RDW 13.7 Plt Count 117 L MPV 10.3 Absolute Neuts (auto) 7.9 Neutrophils % 86.0 H Lymphocytes % 4.7 L D Monocytes % 6.1 D Eosinophils % 2.8 D Basophils % 0.4 Nucleated RBC % 0 Sodium 139 Potassium 3.8 Chloride 98 Carbon Dioxide 30 Anion Gap 11 BUN 55.4 H Creatinine 2.5 H Est GFR (CKD-EPI)AfAm 29.68 Est GFR (CKD-EPI)NonAf 25.61 POC Glucometer 157 Random Glucose 146 H Calcium 7.5 L Phosphorus 4.8 Magnesium 2.1 Total Bilirubin 1.7 H AST 31 ALT 35 Alkaline Phosphatase 121 H Total Protein 5.0 L Albumin 1.6 L 02/23/19 11:29 WBC RBC Hgb Hct MCV MCH MCHC RDW Plt Count MPV Absolute Neuts (auto) Neutrophils % Lymphocytes % Monocytes % Eosinophils % Basophils % Nucleated RBC % Sodium Potassium Chloride Carbon Dioxide Anion Gap BUN Creatinine Est GFR (CKD-EPI)AfAm Est GFR (CKD-EPI)NonAf POC Glucometer 142 Random Glucose Calcium Phosphorus Magnesium Total Bilirubin AST ALT Alkaline Phosphatase Total Protein Albumin Current Medications Generic Name Dose Route Start Last Admin Trade Name Freq PRN Reason Stop Dose Admin Acetaminophen 1,000 mg 02/20/19 21:53 02/23/19 05:19 Ofirmev Injection - IVPB 1,000 mg Q6H PRN Administration FEVER Calcitriol 0.25 mcg 02/17/19 10:00 02/23/19 09:04 Rocaltrol - PO Not Given DAILY [facility] Calcium Acetate 667 mg 02/17/19 08:00 02/23/19 11:41 Phoslo - PO Not Given TIDCM [facility] Chlorhexidine Gluconate 1 applic 02/17/19 22:00 02/22/19 21:41 Hibiclens For Decolonization - TP 1 applic HS [facility] Administration Clotrimazole 1 applic 02/17/19 10:00 02/22/19 21:42 Lotrimin 1% Cream - TP 1 applic BID [facility] Administration Diltiazem HCl 30 mg 02/17/19 14:00 02/23/19 06:29 Cardizem - PO Not Given TID [facility] Sodium Chloride 1,000 mls @ 75 mls/hr 02/18/19 13:40 02/22/19 18:49 1/2 Normal Saline IV 75 mls/hr ASDIR [facility] Administration Piperacillin Sod/Tazobactam 50 mls @ 100 mls/hr 02/21/19 02:00 02/23/19 09:04 Sod 2.25 gm/ Dextrose IVPB 100 mls/hr Q8H-IV [facility] Administration Protocol Sodium Chloride 250 mls @ 3,000 mls/hr 02/21/19 11:00 Normal Saline - IV 02/22/19 11:00 PRN PRN Hypotension during Dialysis Sodium Chloride 250 mls @ 3,000 mls/hr 02/21/19 16:14 Normal Saline - IV 02/22/19 16:14 PRN PRN Hypotension during Dialysis Insulin Aspart 1 vial 02/17/19 22:00 02/23/19 11:40 Novolog Vial Sliding Scale - SQ Not Given ACHS [facility] Protocol Lamotrigine 100 mg 02/18/19 10:00 02/23/19 09:04 Lamictal - PO Not Given DAILY [facility] Pantoprazole Sodium 40 mg 02/19/19 11:30 02/23/19 09:03 Protonix Iv IVPUSH 40 mg BID [facility] Administration Home Medications Medication Instructions Recorded Allopurinol [Zyloprim -] 200 mg DAILY 02/17/19 Amlodipine Besylate 10 mg PO DAILY 02/17/19 Diazepam [Valium] 10 mg PO TID 02/17/19 Insulin Aspart [Novolog] 2 units TID 02/17/19 Insulin Glargine,Hum.rec.anlog 95 unit HS 02/17/19 [Juanumelisa Goostar] Lamotrigine 100 mg DAILY 02/17/19 Losartan/Hydrochlorothiazide 1 tablet DAILY 02/17/19 [Losartan-Hctz 100-12.5 mg Tab] Quetiapine Fumarate [Seroquel -] 200 mg PO HS 02/17/19 ASSESSMENT/PLAN: 68 year old male with history of DM 2, HTN, HLD, CKD, Obesity, Bipolar Disorder , Depression, Anxiety, lives alone, found on floor of his house by his brother, noted to have SMITA, DKA, Multiple electrolyte abnormalities, AMS. 1. Acute Hypercapneic Respiratory Failure and Septic Shock, secondary to bilateral Pneumonia ?Aspiration. Intubated, weaning trial ongoing, possible extubation today. CT C/A/P - bilateral consolidation. Leukocytosis improved. Continue IV Zosyn to cover for possible aspiration. Still spiking fevers. ID following for further recommendations re: Abx. Sputum Cx pending. Urine legionella Ag negative. 2. Syncope/Fall with LOC and Acute Encephalopathy (secondary to Uremia vs Hypernatremia vs Acidosis) Initially recovered mental status after adequate hydration and electrolyte replacement, but then became unresponsive in respiratory distress requiring intubation. Initial CT Head negative for acute findings, repeat CT shows no interval change. No telemonitoring events. Echo - normal EF, small pericardial effusion, no signs of tamponade. MRI recommended by Neurology 3. Upper GI Bleed. Coffee-ground material noticed in NG tube, now cleared. PPI. GI following. H/H monitoring. 4. Atrial Fibrillation with RVR - resolved. Cardizem drip held. Cardizem po also held for now given borderline BP. Heparin drip held due to coffee ground material in NG tube. 5. 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 Renal US - no obstruction. HD catheter blocked during HD 02/21 - s/p RIJ replacement of HD catheter. 5. Hypernatremia sec to dehydration - improved with HD 6. Hypokalemia/Hypocalcemia - repleted/resolved. Started on Calcitriol and Calcium supplementation. 7. DKA - resolved. Insulin drip discontinued. Endocrine following. 8. Bipolar Disorder - normally on Seroquel, Lamictal, Diazepam. 9. HTN - Norvasc, Losartan, HCTZ held due to shock. 10. Wounds R abdominal wall and L knee ? sec to fall/carpet burn, multiple decubitus ulcers buttocks and R hip - no surrounding erythema/infection. Wound Care consulted. DVT Px - Heparin drip held due to coffee ground material via NG tube. GI Px - PPI IV Visit type - Emergency Visit Emergency Visit: Yes ED Registration Date: 02/16/19 Care time: The patient presented to the Emergency Department on the above date and was hospitalized for further evaluation of their emergent condition. - New Patient This patient is new to me today: No - Critical Care Critical Care patient: Yes Total Critical Care Time (in minutes): 35 Critical Care Statement: The care of this patient involved high complexity decision making to prevent further life threatening deterioration of the patient 's condition and/or to evaluate & treat vital organ system(s) failure or risk of failure. - Discharge Referral Referred to [facility] Med P.C.: No
--- NOTE | 2019-02-23 13:53 | PN ---
Physical Exam: SUBJECTIVE: Patient seen and examined. Pt. had a temperature overnight to 100.4. No other acute events overnights. OBJECTIVE: Vital Signs Period Temp Pulse Resp BP Sys/Verdugo Pulse Ox Last 24 Hr 98 F-100.4 F 48-77 10-18 86-161/50-92 98-99 GENERAL: The patient is intubated, sedated, in no acute distress. HEAD: Normal with no signs of trauma. EYES: DANIELITO NECK: Trachea midline LUNGS: Breath sounds equal, clear to auscultation bilaterally, no wheezes, no crackles HEART: Nml s1, s2, regular rate and rhythm, no murmurs or rubs ABDOMEN: Soft, nontender, nondistended, normoactive bowel sounds, no guarding, no rebound, no masses. EXTREMITIES: 2+ dorsal pedal pulses, warm, well-perfused, no edema, left knee eschar. NEUROLOGICAL: Unresponsive, on sedation. Pt. appears to have difficulty squeezing right hand (edematous). 2/5 muscle strength SKIN: Warm, dry, normal turgor, ulcers with dressing applied in right axilla. Laboratory Results - last 24 hr 02/22/19 02/22/19 02/22/19 14:23 18:52 21:24 WBC RBC Hgb Hct MCV MCH MCHC RDW Plt Count MPV Absolute Neuts (auto) Neutrophils % Lymphocytes % Monocytes % Eosinophils % Basophils % Nucleated RBC % Sodium Potassium Chloride Carbon Dioxide Anion Gap BUN Creatinine Est GFR (CKD-EPI)AfAm Est GFR (CKD-EPI)NonAf POC Glucometer 129 155 146 Random Glucose Calcium Phosphorus Magnesium Total Bilirubin AST ALT Alkaline Phosphatase Total Protein Albumin 02/23/19 02/23/19 02/23/19 05:04 06:00 06:00 WBC 9.2 RBC 3.46 L Hgb 11.0 L Hct 32.7 L MCV 94.5 MCH 31.7 MCHC 33.5 RDW 13.7 Plt Count 117 L MPV 10.3 Absolute Neuts (auto) 7.9 Neutrophils % 86.0 H Lymphocytes % 4.7 L D Monocytes % 6.1 D Eosinophils % 2.8 D Basophils % 0.4 Nucleated RBC % 0 Sodium 139 Potassium 3.8 Chloride 98 Carbon Dioxide 30 Anion Gap 11 BUN 55.4 H Creatinine 2.5 H Est GFR (CKD-EPI)AfAm 29.68 Est GFR (CKD-EPI)NonAf 25.61 POC Glucometer 157 Random Glucose 146 H Calcium 7.5 L Phosphorus 4.8 Magnesium 2.1 Total Bilirubin 1.7 H AST 31 ALT 35 Alkaline Phosphatase 121 H Total Protein 5.0 L Albumin 1.6 L 02/23/19 11:29 WBC RBC Hgb Hct MCV MCH MCHC RDW Plt Count MPV Absolute Neuts (auto) Neutrophils % Lymphocytes % Monocytes % Eosinophils % Basophils % Nucleated RBC % Sodium Potassium Chloride Carbon Dioxide Anion Gap BUN Creatinine Est GFR (CKD-EPI)AfAm Est GFR (CKD-EPI)NonAf POC Glucometer 142 Random Glucose Calcium Phosphorus Magnesium Total Bilirubin AST ALT Alkaline Phosphatase Total Protein Albumin Active Medications Home Medications Medication Instructions Recorded Allopurinol [Zyloprim -] 200 mg DAILY 02/17/19 Amlodipine Besylate 10 mg PO DAILY 02/17/19 Diazepam [Valium] 10 mg PO TID 02/17/19 Insulin Aspart [Novolog] 2 units TID 02/17/19 Insulin Glargine,Hum.rec.anlog 95 unit HS 02/17/19 [Toujeo Solostar] Lamotrigine 100 mg DAILY 02/17/19 Losartan/Hydrochlorothiazide 1 tablet DAILY 02/17/19 [Losartan-Hctz 100-12.5 mg Tab] Quetiapine Fumarate [Seroquel -] 200 mg PO HS 02/17/19 Current Medications Acetaminophen (Ofirmev Injection -) 1,000 mg IVPB Q6H PRN PRN Reason: FEVER Last Admin: 02/23/19 05:19 Dose: 1,000 mg Calcitriol (Rocaltrol -) 0.25 mcg PO DAILY [facility] Last Admin: 02/23/19 09:04 Dose: Not Given Calcium Acetate (Phoslo -) 667 mg PO TIDCM [facility] Last Admin: 02/23/19 11:41 Dose: Not Given Chlorhexidine Gluconate (Hibiclens For Decolonization -) 1 applic TP HS [facility] Last Admin: 02/22/19 21:41 Dose: 1 applic Clotrimazole (Lotrimin 1% Cream -) 1 applic TP BID [facility] Last Admin: 02/22/19 21:42 Dose: 1 applic Diltiazem HCl (Cardizem -) 30 mg PO TID [facility] Last Admin: 02/23/19 06:29 Dose: Not Given Sodium Chloride (1/2 Normal Saline) 1,000 mls @ 75 mls/hr IV [facility]IR [facility] Last Admin: 02/22/19 18:49 Dose: 75 mls/hr Piperacillin Sod/Tazobactam (Sod 2.25 gm/ Dextrose) 50 mls @ 100 mls/hr IVPB Q8H-IV [facility]; Protocol Last Admin: 02/23/19 09:04 Dose: 100 mls/hr Sodium Chloride (Normal Saline -) 250 mls @ 3,000 mls/hr IV PRN PRN PRN Reason: Hypotension during Dialysis Stop: 02/22/19 11:00 Sodium Chloride (Normal Saline -) 250 mls @ 3,000 mls/hr IV PRN PRN PRN Reason: Hypotension during Dialysis Stop: 02/22/19 16:14 Insulin Aspart (Novolog Vial Sliding Scale -) 1 vial SQ ACHS [facility]; Protocol Last Admin: 02/23/19 11:40 Dose: Not Given Lamotrigine (Lamictal -) 100 mg PO DAILY [facility] Last Admin: 02/23/19 09:04 Dose: Not Given Pantoprazole Sodium (Protonix Iv) 40 mg IVPUSH BID [facility] Last Admin: 02/23/19 09:03 Dose: 40 mg ASSESSMENT/PLAN: Pt. is a 68 y.o. M w/ PMHx. of CKD, DM, HTN, HLD, obesity, bipolar disorder, depression, and anxiety. He was brought in by EMS after being found on the ground in his apartment for an unknown period of time. According to the brother , baseline mental status is AOx3. #Neuro - Pt. extubated today. - CT Head: No bleed, moderate atrophy, on intracranial pathology - Continue home med Lamotrigine 100mg PO - Carotid Doppler: Plaque in RCC bifurcation, no HDS stenosis - Neuro recs: MRI head #GI - GI recs: Suspect ileus and not primary GI bleed event. Clamped NGT. If no high output, begin to use for meds and feeds - CTAP: No obstruction, rectal impaction with hiatal hernia noticed - Continue Protonix BID #Respiratory - B/L changes persist, mild infiltrate in L base #CVS - Norepi stopped, patient normotensive - AFib with RVR, rate control with Cardizem but currently on hold, may be resumed once pt hemodynamically stable - Vascular consult for ulcers: no need for surgical management at this time, rotate weight bearing areas - Echo: EF 60-65, mild LVH, normal LVSF, small pericardial effusion (<1cm) #Nephro - HD yesterday, 1 kg removed - RIJ-Trialysis catheter replaced yesterday - BUN/Cr: 109.3/4.3 -> 111.5/4.3 -> - L Femoral Trialysis catheter removed today - Chou in place, monitor I/O - UTox: Benzo and Marijuana positive #Endo - Came in with Glucose 329, Beta Hydroxybutyrate 5.5 -> 1.0, s/p insulin drip-- > now controlled on ISS - HbA1c 6.3 #ID - WBC 11.7->13.1-> 15.8 -> 12.8 -> 19.2 - 101.5 overnight without source - BCx no growth - Ceftriaxone Day 4, Zosyn Day 2 as per ID #FEN - 0.45 N/S @ 75 - Monitor electrolytes and replete as needed - NPO except for meds #DVT PE - SCD, holding Heparin due to bleed #Dispo Had HD yesterday ICU monitoring, likely will transfer to /S in AM Visit type - Emergency Visit Emergency Visit: Yes ED Registration Date: 02/16/19 Care time: The patient presented to the Emergency Department on the above date and was hospitalized for further evaluation of their emergent condition. - New Patient This patient is new to me today: No - Critical Care Critical Care patient: Yes Total Critical Care Time (in minutes): 45 Critical Care Statement: The care of this patient involved high complexity decision making to prevent further life threatening deterioration of the patient 's condition and/or to evaluate & treat vital organ system(s) failure or risk of failure. - Discharge Referral Referred to [facility] No ATTENDING PHYSICIAN STATEMENT I saw and evaluated the patient. I reviewed the resident's note and discussed the case with the resident. I agree with the resident's findings and plan as documented. SUBJECTIVE: OBJECTIVE: ASSESSMENT AND PLAN:
--- NOTE | 2019-02-23 15:23 | PN ---
Progress Note (short form) - Note Progress Note: covering dr momin Problems 1. SMITA 2. rhabdo 3. dka 4. altered mental status 5. hyperkalemia 6. resp failure Current Medications Acetaminophen (Ofirmev Injection -) 1,000 mg IVPB Q6H PRN PRN Reason: FEVER Last Admin: 02/23/19 05:19 Dose: 1,000 mg Calcitriol (Rocaltrol -) 0.25 mcg PO DAILY [facility] Last Admin: 02/23/19 09:04 Dose: Not Given Calcium Acetate (Phoslo -) 667 mg PO TIDCM [facility] Last Admin: 02/23/19 11:41 Dose: Not Given Chlorhexidine Gluconate (Hibiclens For Decolonization -) 1 applic TP HS [facility] Last Admin: 02/22/19 21:41 Dose: 1 applic Clotrimazole (Lotrimin 1% Cream -) 1 applic TP BID [facility] Last Admin: 02/22/19 21:42 Dose: 1 applic Diltiazem HCl (Cardizem -) 30 mg PO TID [facility] Last Admin: 02/23/19 06:29 Dose: Not Given Sodium Chloride (1/2 Normal Saline) 1,000 mls @ 75 mls/hr IV ASDIR [facility] Last Admin: 02/22/19 18:49 Dose: 75 mls/hr Piperacillin Sod/Tazobactam (Sod 2.25 gm/ Dextrose) 50 mls @ 100 mls/hr IVPB Q8H-IV [facility]; Protocol Last Admin: 02/23/19 09:04 Dose: 100 mls/hr Sodium Chloride (Normal Saline -) 250 mls @ 3,000 mls/hr IV PRN PRN PRN Reason: Hypotension during Dialysis Stop: 02/22/19 11:00 Sodium Chloride (Normal Saline -) 250 mls @ 3,000 mls/hr IV PRN PRN PRN Reason: Hypotension during Dialysis Stop: 02/22/19 16:14 Insulin Aspart (Novolog Vial Sliding Scale -) 1 vial SQ ACHS [facility]; Protocol Last Admin: 02/23/19 11:40 Dose: Not Given Lamotrigine (Lamictal -) 100 mg PO DAILY [facility] Last Admin: 02/23/19 09:04 Dose: Not Given Pantoprazole Sodium (Protonix Iv) 40 mg IVPUSH BID [facility] Last Admin: 02/23/19 09:03 Dose: 40 mg Last Vital Signs Temp Pulse Resp BP Pulse Ox 98 F 62 18 136/72 99 02/23/19 10:33 02/23/19 14:00 02/23/19 14:00 02/23/19 14:00 02/23/19 12:48 O/E alert trying to verbalize but not intelligible Lungs clear Heart reg Abd soft Ext no edema CBC, BMP 02/23/19 06:00 02/23/19 06:00 CBC, BMP 02/22/19 10:15 02/22/19 10:15 IMP- ESRD s/p HD yesterday looks hemodynamically stable Plan HD per maintenance schedule
[2019-02-23] MEDS: SODIUM CHLORIDE 0.45% 1,000 ML IV SCH ×2 (15:44→22:33)
[2019-02-23] MEDS: CHLORHEXIDINE GLUCONATE 4% CLEANSER FOR DECOLONIZATION TP SCH (22:31)
[2019-02-24] MEDS ORDERED: DEXTROSE 5%-WATER - 50 ML IVPB ONE ×3 (02:18→16:37)
[2019-02-24] MEDS ORDERED: PIPERACILLIN/TAZOBACTAM 2.25 GM VIAL IVPB ONE ×3 (02:18→16:37)
[2019-02-24] MEDS: PIPERACILLIN/TAZOB 2.25 GM 2.25 GM in DEXTROSE 5%-WATER - 50 ML IVPB SCH ×3 (03:23→17:33)
[2019-02-24] MEDS: dilTIAZem HCL 30 MG TABLET (FP) PO SCH ×3 (05:49→21:45)
[2019-02-24] MEDS: INSULIN SLIDING SCALE (NOVOLOG) 1 VIAL SQ SCH ×4 (07:01→23:58)
--- NOTE | 2019-02-24 07:28 | PN ---
Physical Exam: SUBJECTIVE: Patient seen and examined OBJECTIVE: Vital Signs Period Temp Pulse Resp BP Sys/Verdugo Pulse Ox Last 24 Hr 97.8 F-98.3 F 52-69 13-18 92-145/56-110 93-99 GENERAL: The patient is intubated, sedated, in no acute distress. HEAD: Normal with no signs of trauma. EYES: DANIELITO NECK: Trachea midline LUNGS: Breath sounds equal, clear to auscultation bilaterally, no wheezes, no crackles HEART: RRR, no murmurs or rubs ABDOMEN: Soft, nontender, nondistended, normoactive bowel sounds, no guarding, no rebound, no masses. EXTREMITIES: 2+ pulses, warm, well-perfused, no edema. NEUROLOGICAL: Unresponsive, on sedation SKIN: Warm, dry, normal turgor, no rashes or lesions noted. Laboratory Results - last 24 hr 02/23/19 02/23/19 02/23/19 06:00 06:00 11:29 WBC 9.2 RBC 3.46 L Hgb 11.0 L Hct 32.7 L MCV 94.5 MCH 31.7 MCHC 33.5 RDW 13.7 Plt Count 117 L MPV 10.3 Absolute Neuts (auto) 7.9 Neutrophils % 86.0 H Lymphocytes % 4.7 L D Monocytes % 6.1 D Eosinophils % 2.8 D Basophils % 0.4 Nucleated RBC % 0 Sodium 139 Potassium 3.8 Chloride 98 Carbon Dioxide 30 Anion Gap 11 BUN 55.4 H Creatinine 2.5 H Est GFR (CKD-EPI)AfAm 29.68 Est GFR (CKD-EPI)NonAf 25.61 POC Glucometer 142 Random Glucose 146 H Calcium 7.5 L Phosphorus 4.8 Magnesium 2.1 Total Bilirubin 1.7 H AST 31 ALT 35 Alkaline Phosphatase 121 H Total Protein 5.0 L Albumin 1.6 L 02/23/19 02/23/19 02/24/19 17:10 21:28 05:51 WBC RBC Hgb Hct MCV MCH MCHC RDW Plt Count MPV Absolute Neuts (auto) Neutrophils % Lymphocytes % Monocytes % Eosinophils % Basophils % Nucleated RBC % Sodium Potassium Chloride Carbon Dioxide Anion Gap BUN Creatinine Est GFR (CKD-EPI)AfAm Est GFR (CKD-EPI)NonAf POC Glucometer 146 132 147 Random Glucose Calcium Phosphorus Magnesium Total Bilirubin AST ALT Alkaline Phosphatase Total Protein Albumin Active Medications Generic Name Dose Route Start Last Admin Trade Name Freq PRN Reason Stop Dose Admin Acetaminophen 1,000 mg 02/20/19 21:53 02/23/19 05:19 Ofirmev Injection - IVPB 1,000 mg Q6H PRN Administration FEVER Calcitriol 0.25 mcg 02/17/19 10:00 02/23/19 09:04 Rocaltrol - PO Not Given DAILY [facility] Calcium Acetate 667 mg 02/17/19 08:00 02/23/19 17:23 Phoslo - PO Not Given TIDCM [facility] Chlorhexidine Gluconate 1 applic 02/17/19 22:00 02/23/19 22:31 Hibiclens For Decolonization - TP 1 applic HS [facility] Administration Clotrimazole 1 applic 02/17/19 10:00 02/23/19 22:31 Lotrimin 1% Cream - TP 1 applic BID [facility] Administration Diltiazem HCl 30 mg 02/17/19 14:00 02/24/19 05:49 Cardizem - PO Not Given TID [facility] Sodium Chloride 1,000 mls @ 75 mls/hr 02/18/19 13:40 02/23/19 22:33 1/2 Normal Saline IV 75 mls/hr [facility] Administration Piperacillin Sod/Tazobactam 50 mls @ 100 mls/hr 02/21/19 02:00 02/24/19 03:23 Sod 2.25 gm/ Dextrose IVPB 100 mls/hr Q8H-IV [facility] Administration Protocol Sodium Chloride 250 mls @ 3,000 mls/hr 02/21/19 11:00 Normal Saline - IV 02/22/19 11:00 PRN PRN Hypotension during Dialysis Sodium Chloride 250 mls @ 3,000 mls/hr 02/21/19 16:14 Normal Saline - IV 02/22/19 16:14 PRN PRN Hypotension during Dialysis Insulin Aspart 1 vial 02/17/19 22:00 02/24/19 07:01 Novolog Vial Sliding Scale - SQ Not Given ACHS [facility] Protocol Lamotrigine 100 mg 02/18/19 10:00 02/23/19 09:04 Lamictal - PO Not Given DAILY [facility] Pantoprazole Sodium 40 mg 02/19/19 11:30 02/23/19 22:30 Protonix Iv IVPUSH 40 mg BID [facility] Administration ASSESSMENT/PLAN: Pt. is a 68 y.o. M w/ PMHx. of CKD, DM, HTN, HLD, obesity, bipolar disorder, depression, and anxiety. He was brought in by EMS after being found on the ground in his apartment for an unknown period of time. According to the brother , baseline mental status is AOx3. #Neuro - Pt. extubated 02/23, awake and alert but appears confused, may need to resume home psych meds - CT Head: No bleed, moderate atrophy, on intracranial pathology - Carotid Doppler: Plaque in RCC bifurcation, no HDS stenosis - Neuro recs: MRI head #GI - NGT removed - CTAP: No obstruction, rectal impaction with hiatal hernia noticed - Continue Protonix BID #Respiratory - CXR 02/23: B/L changes persist #CVS - Surgical debridement scheduled today for ulcers on Left knee (medial) and Rt hip eschar - Norepi stopped, patient normotensive - AFib with RVR, rate control with Cardizem but currently on hold, may be resumed once pt hemodynamically stable - Echo: EF 60-65, mild LVH, normal LVSF, small pericardial effusion (<1cm) #Nephro - Producing urine, no HD today as per Nephro - RIJ-Trialysis catheter replaced 02/22, L Femoral Trialysis catheter removed - BUN/Cr: 109.3/4.3 -> 111.5/4.3 -> 62.4/2.5 - Chou in place, monitor I/O - UTox: Benzo and Marijuana positive #Endo - Came in with Glucose 329, Beta Hydroxybutyrate 5.5 -> 1.0, s/p insulin drip-- > now controlled on ISS - HbA1c 6.3 #ID - WBC 11.7->13.1-> 15.8 -> 12.8 -> 19.2 -> 12.8 -> 9.2 -> 8.5 - Afebrile overnight - BCx no growth, Sputum cx normal yulissa - Ceftriaxone Day 6, Zosyn Day 4 as per ID #FEN - 0.45 N/S @ 75 - Monitor electrolytes and replete as needed - NPO except for meds #DVT PE - SCD, holding Heparin due to bleed #Dispo - Had HD yesterday - ICU monitoring, likely will transfer to M/S in AM Visit type - Emergency Visit Emergency Visit: Yes ED Registration Date: 02/16/19 Care time: The patient presented to the Emergency Department on the above date and was hospitalized for further evaluation of their emergent condition. - New Patient This patient is new to me today: No - Critical Care Critical Care patient: Yes Total Critical Care Time (in minutes): 39 Critical Care Statement: The care of this patient involved high complexity decision making to prevent further life threatening deterioration of the patient 's condition and/or to evaluate & treat vital organ system(s) failure or risk of failure. ATTENDING PHYSICIAN STATEMENT I saw and evaluated the patient. I reviewed the resident's note and discussed the case with the resident. I agree with the resident's findings and plan as documented. SUBJECTIVE: OBJECTIVE: ASSESSMENT AND PLAN:
[2019-02-24 07:39] LABS: HEMATOCRIT 32.9 % (35.4-49); HEMOGLOBIN 11.3 GM/dL (11.7-16.9); MCH 31.9 pg (25.7-33.7); MCHC 34.3 g/dl (32.0-35.9); MEAN CELL VOLUME 93.1 fl (80-96); MEAN PLT VOLUME 10.4 fl (7.5-11.1); PLATELET COUNT 123 K/MM3 (134-434); RBC 3.53 M/mm3 (4.00-5.60); RDW 13.2 % (11.9-15.9); WHITE BLOOD COUNT 8.5 K/mm3 (4.0-10.0)
[2019-02-24 08:00] LABS: ALBUMIN 1.7 g/dl (3.4-5.0); BILIRUBIN,TOTAL 1.6 mg/dL (0.2-1); BLOOD UREA NITROGEN 62.4 mg/dL (7-18); CALCIUM 7.9 mg/dL (8.5-10.1); CREATININE 2.5 mg/dL (0.55-1.3); MAGNESIUM 2.1 mg/dL (1.8-2.4); POTASSIUM 3.7 mmol/L (3.5-5.1); TOT PROT 5.1 g/dl (6.4-8.2)
--- NOTE | 2019-02-24 08:12 | SPA.PREOP ---
- PRE-OP NOTE Dx: Left knee (medial) and Rt hip eschar Planned Procedure: Surgical debridement 02/24/19 Surgeon: Vance Abreu Last Vital Signs Temp Pulse Resp BP Pulse Ox 98.2 F 69 15 126/110 H 93 L 02/24/19 06:00 02/24/19 06:00 02/24/19 06:00 02/24/19 06:00 02/23/19 22:00 Lab Results WBC 9.2 K/mm3 (4.0-10.0) 02/23/19 06:00 RBC 3.46 M/mm3 (4.00-5.60) L 02/23/19 06:00 Hgb 11.0 GM/dL (11.7-16.9) L 02/23/19 06:00 Hct 32.7 % (35.4-49) L 02/23/19 06:00 MCV 94.5 fl (80-96) 02/23/19 06:00 MCHC 33.5 g/dl (32.0-35.9) 02/23/19 06:00 RDW 13.7 % (11.9-15.9) 02/23/19 06:00 Plt Count 117 K/MM3 (134-434) L 02/23/19 06:00 Sodium 141 mmol/L (136-145) 02/24/19 06:00 Potassium 3.7 mmol/L (3.5-5.1) 02/24/19 06:00 Chloride 102 mmol/L (98-107) 02/24/19 06:00 Carbon Dioxide 29 mmol/L (21-32) 02/24/19 06:00 Anion Gap 9 MMOL/L (8-16) 02/24/19 06:00 BUN 62.4 mg/dL (7-18) H 02/24/19 06:00 Creatinine 2.5 mg/dL (0.55-1.3) H 02/24/19 06:00 Random Glucose 130 mg/dL (74-106) H 02/24/19 06:00 Calcium 7.9 mg/dL (8.5-10.1) L 02/24/19 06:00 Blood Type A NEGATIVE 02/16/19 19:30 Antibody Screen Negative 02/16/19 19:30 INR 1.22 (0.83-1.09) H 02/22/19 10:15 - ASSESSMENT/PLAN 1. NPO except po meds 2. GI/DVT PPX 3. Medical optimization / clearance 4. Type and Screen 5. Consent to be obtained by surgeon after risks, benefits and alternatives discussed with patient and or Health Care Proxy. Problem List - Problems (1) Unstageable pressure injury of skin and tissue Code(s): L89.95 - PRESSURE ULCER OF UNSPECIFIED SITE, UNSTAGEABLE (2) Rhabdomyolysis Code(s): M62.82 - RHABDOMYOLYSIS (3) Renal failure Code(s): N19 - UNSPECIFIED KIDNEY FAILURE (4) HTN (hypertension) Code(s): I10 - ESSENTIAL (PRIMARY) HYPERTENSION (5) Leukocytosis Code(s): D72.829 - ELEVATED WHITE BLOOD CELL COUNT, UNSPECIFIED Visit type - Case Type Case Type: ED Admission
--- NOTE | 2019-02-24 08:36 | PN ---
Progress Note (short form) - Note Progress Note: Neurology CHIEF COMPLAINT: CVA PCP: unknown, psychiatrist Dr. Steve Navarro HISTORY OF PRESENT ILLNESS: Mr. Burnette is a 68 y/o man with a pmhx of kidney disease, DM, HTN, HLD, obesity, bipolar disorder, depression, and anxiety who is BIBA after being found down in his apt for an unknown period of time. History obtained from chart as pt was confused on exam and was unable to answer questions. Per the patient's brother, the pt had an appointment with a friend I gave admission and when he did not show up the pt's friend called the police to do a wellness check (the pt did not name the friend). Police found the pt down in his apartment and he was brought to the hospital by EMS, unclear how long the pt was down for. I was contacted by the emergency department for further evaluation as the patient demonstrated an NIH stroke scale of 14. Time of onset was unknown and additionally patient with generalized confusion and weakness more so than just focal deficits and therefore concern for possible underlying toxic metabolic, infectious, diffuse process. CT head without acute changes but there was multiple metabolic derangements on lab work. White blood cell count was 12 on admission. BUN/creatinine was 252//6.2 on admission. WBC, BUN/Cr. trending down. Lastly, blood glucose was 329 on admission, being optimized. Carotid Doppler completed, small-moderate size soft plaque at the right common carotid bifurcation with intimal thickening and minimal plaque buildup on the left without evidence of hemodynamically significant stenosis bilaterally. Brain MRI ordered, not yet completed. Patient under critical care management, patient intubated on 02/18, patient extubated on 02/23. Underlying derangements improving and receiving continued optimization. Repeat head ct compeleted 02/20 - moderate atrophy without gross acute intracranial pathology , chronic sinusitis and right mastoid effusion. Patient to have wound debridement on 02/24. Awake, alert and conversant this morning. Does not recognize me and is not able to tell me the exact location, believed it was [facility] and had to be told it was [facility]. Did not know the correct month or year. Discussed with the resident and nurse, MRI brain may be of benefit, ordered previously and now the patient extubated may be able to have completed. Active Medications Acetaminophen (Ofirmev Injection -) 1,000 mg IVPB Q6H PRN PRN Reason: FEVER Last Admin: 02/23/19 05:19 Dose: 1,000 mg Calcitriol (Rocaltrol -) 0.25 mcg PO DAILY [facility] Last Admin: 02/23/19 09:04 Dose: Not Given Calcium Acetate (Phoslo -) 667 mg PO TIDCM [facility] Last Admin: 02/23/19 17:23 Dose: Not Given Chlorhexidine Gluconate (Hibiclens For Decolonization -) 1 applic TP HS [facility] Last Admin: 02/23/19 22:31 Dose: 1 applic Clotrimazole (Lotrimin 1% Cream -) 1 applic TP BID [facility] Last Admin: 02/23/19 22:31 Dose: 1 applic Diltiazem HCl (Cardizem -) 30 mg PO TID [facility] Last Admin: 02/24/19 05:49 Dose: Not Given Sodium Chloride (1/2 Normal Saline) 1,000 mls @ 75 mls/hr IV ASDIR [facility] Last Admin: 02/23/19 22:33 Dose: 75 mls/hr Piperacillin Sod/Tazobactam (Sod 2.25 gm/ Dextrose) 50 mls @ 100 mls/hr IVPB Q8H-IV [facility]; Protocol Last Admin: 02/24/19 03:23 Dose: 100 mls/hr Sodium Chloride (Normal Saline -) 250 mls @ 3,000 mls/hr IV PRN PRN PRN Reason: Hypotension during Dialysis Stop: 02/22/19 11:00 Sodium Chloride (Normal Saline -) 250 mls @ 3,000 mls/hr IV PRN PRN PRN Reason: Hypotension during Dialysis Stop: 02/22/19 16:14 Insulin Aspart (Novolog Vial Sliding Scale -) 1 vial SQ ACHS [facility]; Protocol Last Admin: 02/24/19 07:01 Dose: Not Given Lamotrigine (Lamictal -) 100 mg PO DAILY [facility] Last Admin: 02/23/19 09:04 Dose: Not Given Pantoprazole Sodium (Protonix Iv) 40 mg IVPUSH BID [facility] Last Admin: 02/23/19 22:30 Dose: 40 mg PHYSICAL EXAMINATION Vital Signs Period Temp Pulse Resp BP Sys/Verdugo Pulse Ox Last 24 Hr 97.8 F-98.3 F 52-69 13-18 92-144/56-110 93-99 GENERAL: intubated and sedated HEAD: Normal with no signs of trauma. EYES: Pupils equal, round and reactive to light, extraocular movements intact, sclera anicteric, conjunctiva clear. No lid lag. LUNGS: Breath sounds equal, HEART: Regular rate irregularly irregular rhythm, normal S1 and S2 without murmur. ABDOMEN: Soft, not distended, normoactive bowel sounds, skin breakdown on R side of abdomen with sloughing wounds and ecchymosis, very TTP, guarding, no rebound, no masses, reducible umbilical hernia. UPPER EXTREMITIES: 2+ pulses, warm, well-perfused. No cyanosis. No clubbing. No peripheral edema. Cuts on bilateral elbows LOWER EXTREMITIES: 2+ pulses, warm, well-perfused. No calf tenderness. No peripheral edema. NEUROLOGICAL: intuabted, response to voice, not moving extremities to command, response to pain PSYCHIATRIC: Cooperative. poor eye contact. SKIN: +pressure ulcer to the right hip, skin breakdown to the right side of the abdomen, Abrasions to the right side of the face. Warm and dry. CBCD WBC 8.5 K/mm3 (4.0-10.0) 02/24/19 06:00 RBC 3.53 M/mm3 (4.00-5.60) L 02/24/19 06:00 Hgb 11.3 GM/dL (11.7-16.9) L 02/24/19 06:00 Hct 32.9 % (35.4-49) L 02/24/19 06:00 MCV 93.1 fl (80-96) 02/24/19 06:00 MCHC 34.3 g/dl (32.0-35.9) 02/24/19 06:00 RDW 13.2 % (11.9-15.9) 02/24/19 06:00 Plt Count 123 K/MM3 (134-434) L 02/24/19 06:00 MPV 10.4 fl (7.5-11.1) 02/24/19 06:00 CMP Sodium 141 mmol/L (136-145) 02/24/19 06:00 Potassium 3.7 mmol/L (3.5-5.1) 02/24/19 06:00 Chloride 102 mmol/L (98-107) 02/24/19 06:00 Carbon Dioxide 29 mmol/L (21-32) 02/24/19 06:00 Anion Gap 9 MMOL/L (8-16) 02/24/19 06:00 BUN 62.4 mg/dL (7-18) H 02/24/19 06:00 Creatinine 2.5 mg/dL (0.55-1.3) H 02/24/19 06:00 Random Glucose 130 mg/dL (74-106) H 02/24/19 06:00 Calcium 7.9 mg/dL (8.5-10.1) L 02/24/19 06:00 Total Bilirubin 1.6 mg/dL (0.2-1) H 02/24/19 06:00 AST 26 U/L (15-37) 02/24/19 06:00 ALT 32 U/L (13-61) 02/24/19 06:00 Alkaline Phosphatase 103 U/L (45-117) 02/24/19 06:00 Total Protein 5.1 g/dl (6.4-8.2) L 02/24/19 06:00 Albumin 1.7 g/dl (3.4-5.0) L 02/24/19 06:00 CARDIAC ENZYMES Creatine Kinase 950 U/L (26-308) H 02/17/19 16:15 Troponin I 0.04 ng/ml (0.00-0.05) 02/17/19 16:15 ASSESSMENT/PLAN: Mr. Burnette is a 68 y/o man with a pmhx of kidney disease, DM, HTN, HLD, obesity , bipolar disorder, depression, and anxiety who is BIBA after being found down in his apt for an unknown period of time. History obtained from chart as pt was confused on exam and was unable to answer questions. Per the patient's brother, the pt had an appointment with a friend I gave admission and when he did not show up the pt's friend called the police to do a wellness check (the pt did not name the friend). Police found the pt down in his apartment and he was brought to the hospital by EMS, unclear how long the pt was down for. Per the patient's brother, the pt is normally fully independent and able to complete all his ADLs unassisted. He lives alone in an apartment in [facility] and per the brother the pt keeps up with all his doctor appointments and takes his medications as prescribed. The pt's brother was unable to state what medicines his brother uses or which pharmacy his brother uses however states that his brother's psychiatrist is Dr. Steve Navarro and that he may know the answers to these questions. The brother reports he last saw the patient about 3 months ago. I was contacted by the emergency department for further evaluation as the patient demonstrated an NIH stroke scale of 14. Time of onset was unknown and additionally patient with generalized confusion and weakness more so than just focal deficits and therefore concern for possible underlying toxic metabolic, infectious, diffuse process. CT head without acute changes but there was multiple metabolic derangements on lab work. White blood cell count was 12 on admission. BUN/creatinine was 252//6.2 on admission. WBC, BUN/Cr. trending down. Lastly, blood glucose was 329 on admission, continues to be optimized. Carotid Doppler completed, small-moderate yesenia soft plaque at the right common carotid bifurcation with intimal thickening and minimal plaque buildup on the left without evidence of hemodynamically significant stenosis bilaterally. Would benefit from MRI brain to rule out CVA this seems more to be a diffuse generalized process and requires further medical optimization. Brain MRI ordered , not yet completed. Patient under critical care management. Repeat head ct compeleted 02/20 - moderate atrophy without gross acute intracranial pathology , chronic sinusitis and right mastoid effusion. Patient under critical care management, patient intubated on 02/18, patient extubated on 02/23. Underlying derangements improving and receiving continued optimization. Patient to have wound debridement on 02/24. Diabetic ketoacidosis, monitor glucose, maintain euglycemic range. Monitor electrolytes, follow-up recommendations from nephrology, IV hydration as tolerated, correct derangments. Monitor blood pressure, maintain less than 140/90. Follow up cultures. Wound care. Receiving ICU level of care. Discussed with the resident and nurse, MRI brain may be of benefit, ordered previously and now the patient extubated may be able to have completed. Critical care time 35 mins.
[2019-02-24 09:27] LABS: INR 1.08 (0.83-1.09); PROTHROMBIN TIME (PATIENT) 12.8 SEC (9.7-13.0)
[2019-02-24] MEDS: PANTOPRAZOLE SODIUM 40 MG VIAL IVPUSH SCH ×2 (09:46→21:46)
[2019-02-24] MEDS: lamoTRIgine 100 MG TABLET (FP) PO SCH (09:46)
[2019-02-24] MEDS: CALCIUM ACETATE 667 MG CAPSULE (FP) PO SCH ×3 (09:46→17:33)
[2019-02-24] MEDS: CLOTRIMAZOLE 1% CREAM 15 GM TUBE TP SCH ×2 (09:47→22:10)
[2019-02-24] MEDS: CALCITRIOL 0.25 MCG CAPSULE (FP) PO SCH (09:47)
[2019-02-24 11:07] LABS: ANTIGLOMERULAR BASEMENT MEN.AB 3 units (0-20)
--- NOTE | 2019-02-24 11:37 | PN ---
Progress Note, Physician History of Present Illness: Pt seen and examined at bedside. He is not extubated. He is more awake and interactive. - Current Medication List Current Medications: Active Medications Acetaminophen (Ofirmev Injection -) 1,000 mg IVPB Q6H PRN PRN Reason: FEVER Last Admin: 02/23/19 05:19 Dose: 1,000 mg Calcitriol (Rocaltrol -) 0.25 mcg PO DAILY [facility] Last Admin: 02/24/19 09:47 Dose: Not Given Calcium Acetate (Phoslo -) 667 mg PO TIDCM [facility] Last Admin: 02/24/19 09:46 Dose: Not Given Chlorhexidine Gluconate (Hibiclens For Decolonization -) 1 applic TP HS [facility] Last Admin: 02/23/19 22:31 Dose: 1 applic Clotrimazole (Lotrimin 1% Cream -) 1 applic TP BID [facility] Last Admin: 02/24/19 09:47 Dose: 1 applic Diltiazem HCl (Cardizem -) 30 mg PO TID [facility] Last Admin: 02/24/19 05:49 Dose: Not Given Sodium Chloride (1/2 Normal Saline) 1,000 mls @ 75 mls/hr IV ASDIR [facility] Last Admin: 02/23/19 22:33 Dose: 75 mls/hr Piperacillin Sod/Tazobactam (Sod 2.25 gm/ Dextrose) 50 mls @ 100 mls/hr IVPB Q8H-IV [facility]; Protocol Last Admin: 02/24/19 09:46 Dose: 100 mls/hr Sodium Chloride (Normal Saline -) 250 mls @ 3,000 mls/hr IV PRN PRN PRN Reason: Hypotension during Dialysis Stop: 02/22/19 11:00 Sodium Chloride (Normal Saline -) 250 mls @ 3,000 mls/hr IV PRN PRN PRN Reason: Hypotension during Dialysis Stop: 02/22/19 16:14 Insulin Aspart (Novolog Vial Sliding Scale -) 1 vial SQ ACHS [facility]; Protocol Last Admin: 02/24/19 07:01 Dose: Not Given Lamotrigine (Lamictal -) 100 mg PO DAILY [facility] Last Admin: 02/24/19 09:46 Dose: Not Given Pantoprazole Sodium (Protonix Iv) 40 mg IVPUSH BID [facility] Last Admin: 02/24/19 09:46 Dose: 40 mg - Objective Vital Signs: Vital Signs Temperature 98 F 02/24/19 10:00 Pulse Rate 68 02/24/19 10:00 Respiratory Rate 18 02/24/19 10:00 Blood Pressure 101/65 02/24/19 10:00 O2 Sat by Pulse Oximetry (%) 97 02/24/19 09:00 Constitutional: Yes: Calm Eyes: Yes: Conjunctiva Clear HENT: Yes: Atraumatic Neck: Yes: Supple Cardiovascular: Yes: S1, S2 Respiratory: Yes: On Nasal O2 Gastrointestinal: Yes: Soft, Abdomen, Obese Genitourinary: Yes: Chou Present Musculoskeletal: Yes: WNL Edema: No Neurological: Yes: Oriented Psychiatric: Yes: Oriented Labs: CBC, BMP 02/24/19 06:00 02/24/19 06:00 INR, PTT INR 1.08 (0.83-1.09) 02/24/19 09:00 Assessment/Plan Current Medicatio Current Medications Generic Name Dose Route Start Last Admin Trade Name Sidneyq PRN Reason Stop Dose Admin Acetaminophen 1,000 mg 02/20/19 21:53 02/23/19 05:19 Ofirmev Injection - IVPB 1,000 mg Q6H PRN Administration FEVER Calcitriol 0.25 mcg 02/17/19 10:00 02/24/19 09:47 Rocaltrol - PO Not Given DAILY [facility] Calcium Acetate 667 mg 02/17/19 08:00 02/24/19 09:46 Phoslo - PO Not Given TIDCM [facility] Chlorhexidine Gluconate 1 applic 02/17/19 22:00 02/23/19 22:31 Hibiclens For Decolonization - TP 1 applic HS [facility] Administration Clotrimazole 1 applic 02/17/19 10:00 02/24/19 09:47 Lotrimin 1% Cream - TP 1 applic BID [facility] Administration Diltiazem HCl 30 mg 02/17/19 14:00 02/24/19 05:49 Cardizem - PO Not Given TID [facility] Sodium Chloride 1,000 mls @ 75 mls/hr 02/18/19 13:40 02/23/19 22:33 1/2 Normal Saline IV 75 mls/hr ASDIR [facility] Administration Piperacillin Sod/Tazobactam 50 mls @ 100 mls/hr 02/21/19 02:00 02/24/19 09:46 Sod 2.25 gm/ Dextrose IVPB 100 mls/hr Q8H-IV [facility] Administration Protocol Sodium Chloride 250 mls @ 3,000 mls/hr 02/21/19 11:00 Normal Saline - IV 02/22/19 11:00 PRN PRN Hypotension during Dialysis Sodium Chloride 250 mls @ 3,000 mls/hr 02/21/19 16:14 Normal Saline - IV 02/22/19 16:14 PRN PRN Hypotension during Dialysis Insulin Aspart 1 vial 02/17/19 22:00 02/24/19 07:01 Novolog Vial Sliding Scale - SQ Not Given ACHS [facility] Protocol Lamotrigine 100 mg 02/18/19 10:00 02/24/19 09:46 Lamictal - PO Not Given DAILY [facility] Pantoprazole Sodium 40 mg 02/19/19 11:30 02/24/19 09:46 Protonix Iv IVPUSH 40 mg BID [facility] Administration Laboratory Tests 02/20/19 02/20/19 06:05 06:05 TY M-Tremaine Pending AMADEO Screen Negative c-ANCA Pending Proteinase 3 (PR3) Pending p-ANCA Pending Atypical p-ANCA Pending Myeloperoxidase Ab Pending Glomerular Base Memb Ab 3 Impression 1. SMITA 2. rhabdo 3. dka 4. altered mental status 5. hyperkalemia 6. resp failure Plan - cont with fluids - monitor urine output - repeat labs in am - will evaluate for HD again tomorrow - follow serologies
[2019-02-24] MEDS: SODIUM CHLORIDE 0.45% 1,000 ML IV SCH ×2 (11:43→17:32)
--- NOTE | 2019-02-24 12:44 | PN ---
Progress Note, HEAD PUMPER - Note Progress Note: Pt alert, exubated, verbal. Remembers me well from ED consult. Speaking better than initial consult, with delayed word finding but appropriate. Recalls being unable to express himself in ED. NPO, good voicing. Please let me know if a swallowing re-evaluation is indicated.
--- NOTE | 2019-02-24 12:46 | PN ---
Teaching Attending Note Name of Resident: Hollis Floyd ATTENDING PHYSICIAN STATEMENT I saw and evaluated the patient. I reviewed the resident's note and discussed the case with the resident. I agree with the resident's findings and plan as documented. SUBJECTIVE: Pt seen and examined in the ICU. Extubated yesterday without incident. Denies shortness of breath. For debridement of decubitus ulcers today. OBJECTIVE: Vital Signs Period Temp Pulse Resp BP Sys/Verdugo Pulse Ox Last 24 Hr 97.8 F-98.3 F 61-69 13-18 92-155/58-110 93-99 Intake & Output 02/21/19 02/22/19 02/23/19 02/24/19 23:59 23:59 23:59 23:59 Intake Total 2052.4 1684.6 1934.2 50 Output Total 1300 3200 550 425 Balance 752.4 -1515.4 1384.2 -375 Weight 100.516 kg 99.881 kg 101.333 kg Gen: NAD at rest Heart: RRR Lung: decreased breath sounds at the bases Abd: soft, nontender Ext: + edema CBC, BMP 02/24/19 06:00 02/24/19 06:00 Active Medications Acetaminophen (Ofirmev Injection -) 1,000 mg IVPB Q6H PRN PRN Reason: FEVER Last Admin: 02/23/19 05:19 Dose: 1,000 mg Calcitriol (Rocaltrol -) 0.25 mcg PO DAILY [facility] Last Admin: 02/24/19 09:47 Dose: Not Given Calcium Acetate (Phoslo -) 667 mg PO TIDCM [facility] Last Admin: 02/24/19 11:38 Dose: Not Given Chlorhexidine Gluconate (Hibiclens For Decolonization -) 1 applic TP HS [facility] Last Admin: 02/23/19 22:31 Dose: 1 applic Clotrimazole (Lotrimin 1% Cream -) 1 applic TP BID [facility] Last Admin: 02/24/19 09:47 Dose: 1 applic Diltiazem HCl (Cardizem -) 30 mg PO TID [facility] Last Admin: 02/24/19 05:49 Dose: Not Given Sodium Chloride (1/2 Normal Saline) 1,000 mls @ 75 mls/hr IV ASDIR [facility] Last Admin: 02/24/19 11:43 Dose: 75 mls/hr Piperacillin Sod/Tazobactam (Sod 2.25 gm/ Dextrose) 50 mls @ 100 mls/hr IVPB Q8H-IV [facility]; Protocol Last Admin: 02/24/19 09:46 Dose: 100 mls/hr Sodium Chloride (Normal Saline -) 250 mls @ 3,000 mls/hr IV PRN PRN PRN Reason: Hypotension during Dialysis Stop: 02/22/19 11:00 Sodium Chloride (Normal Saline -) 250 mls @ 3,000 mls/hr IV PRN PRN PRN Reason: Hypotension during Dialysis Stop: 02/22/19 16:14 Insulin Aspart (Novolog Vial Sliding Scale -) 1 vial SQ ACHS [facility]; Protocol Last Admin: 02/24/19 11:47 Dose: Not Given Lamotrigine (Lamictal -) 100 mg PO DAILY [facility] Last Admin: 02/24/19 09:46 Dose: Not Given Pantoprazole Sodium (Protonix Iv) 40 mg IVPUSH BID [facility] Last Admin: 02/24/19 09:46 Dose: 40 mg ASSESSMENT AND PLAN: Altered Mental Status/Syncope resolved s/p Acute Respiratory Failure Acute on Chronic Renal Failure requiring HD Rhabdomyolysis improved Paroxysmal Atrial Fibrillation HTN Hypercholesterolemia Anemia/Thrombocytopenia Necrotic Decubitus Ulcers - HD per renal - IVF - off pressors, maintain MAP >65 - monitor urine output, creatinine - rate control - for debridement today - can resume anticoagulation post debridement - DVT/GI prophylaxis - can monitor on floor
--- NOTE | 2019-02-24 15:05 | PN ---
Physical Exam: SUBJECTIVE: Patient seen and examined in the morning. No acute events overnight. OBJECTIVE: Vital Signs Period Temp Pulse Resp BP Sys/Verdugo Pulse Ox Last 24 Hr 97.8 F-98.3 F 63-74 13-18 92-155/58-110 93-97 GENERAL: The patient is AOx1, responsive and cooperative HEAD: Normal with no signs of trauma. EYES: DANIELITO, EOMI NECK: Trachea midline LUNGS: Breath sounds equal, clear to auscultation bilaterally, no wheezes, no crackles HEART: RRR, no murmurs or rubs ABDOMEN: Soft, nontender, nondistended, normoactive bowel sounds, no guarding, no rebound, no masses. EXTREMITIES: 2+ pulses, warm, well-perfused, no edema. NEUROLOGICAL: Motor 3/5 on right, 5/5 on left. Sensations intact B/L SKIN: Warm, dry, normal turgor, eschar noted on rt hip, left knee Laboratory Results - last 24 hr 02/20/19 02/23/19 02/23/19 06:05 17:10 21:28 WBC RBC Hgb Hct MCV MCH MCHC RDW Plt Count MPV PT with INR INR PTT (Actin FS) Sodium Potassium Chloride Carbon Dioxide Anion Gap BUN Creatinine Est GFR (CKD-EPI)AfAm Est GFR (CKD-EPI)NonAf POC Glucometer 146 132 Random Glucose Calcium Magnesium Total Bilirubin AST ALT Alkaline Phosphatase Total Protein Albumin Glomerular Base Memb Ab 3 Blood Type Antibody Screen 02/24/19 02/24/19 02/24/19 05:51 06:00 06:00 WBC 8.5 RBC 3.53 L Hgb 11.3 L Hct 32.9 L MCV 93.1 MCH 31.9 MCHC 34.3 RDW 13.2 Plt Count 123 L MPV 10.4 PT with INR INR PTT (Actin FS) Sodium 141 Potassium 3.7 Chloride 102 Carbon Dioxide 29 Anion Gap 9 BUN 62.4 H Creatinine 2.5 H Est GFR (CKD-EPI)AfAm 29.68 Est GFR (CKD-EPI)NonAf 25.61 POC Glucometer 147 Random Glucose 130 H Calcium 7.9 L Magnesium 2.1 Total Bilirubin 1.6 H AST 26 ALT 32 Alkaline Phosphatase 103 Total Protein 5.1 L Albumin 1.7 L Glomerular Base Memb Ab Blood Type Antibody Screen 02/24/19 02/24/1919 09:00 09:00 11:46 WBC RBC Hgb Hct MCV MCH MCHC RDW Plt Count MPV PT with INR 12.80 INR 1.08 PTT (Actin FS) 27.0 Sodium Potassium Chloride Carbon Dioxide Anion Gap BUN Creatinine Est GFR (CKD-EPI)AfAm Est GFR (CKD-EPI)NonAf POC Glucometer 150 Random Glucose Calcium Magnesium Total Bilirubin AST ALT Alkaline Phosphatase Total Protein Albumin Glomerular Base Memb Ab Blood Type A NEGATIVE Antibody Screen Negative Active Medications Generic Name Dose Route Start Last Admin Trade Name Freq PRN Reason Stop Dose Admin Acetaminophen 1,000 mg 02/20/19 21:53 02/23/19 05:19 Ofirmev Injection - IVPB 1,000 mg Q6H PRN Administration FEVER Calcitriol 0.25 mcg 02/17/19 10:00 02/24/19 09:47 Rocaltrol - PO Not Given DAILY [facility] Calcium Acetate 667 mg 02/17/19 08:00 02/24/19 11:38 Phoslo - PO Not Given TIDCM [facility] Chlorhexidine Gluconate 1 applic 02/17/19 22:00 02/23/19 22:31 Hibiclens For Decolonization - TP 1 applic HS [facility] Administration Clotrimazole 1 applic 02/17/19 10:00 02/24/19 09:47 Lotrimin 1% Cream - TP 1 applic BID [facility] Administration Diltiazem HCl 30 mg 02/17/19 14:00 02/24/19 05:49 Cardizem - PO Not Given TID [facility] Sodium Chloride 1,000 mls @ 75 mls/hr 02/18/19 13:40 02/24/19 11:43 1/2 Normal Saline IV 75 mls/hr ASDIR [facility] Administration Piperacillin Sod/Tazobactam 50 mls @ 100 mls/hr 02/21/19 02:00 02/24/19 09:46 Sod 2.25 gm/ Dextrose IVPB 100 mls/hr Q8H-IV [facility] Administration Protocol Sodium Chloride 250 mls @ 3,000 mls/hr 02/21/19 11:00 Normal Saline - IV 02/22/19 11:00 PRN PRN Hypotension during Dialysis Sodium Chloride 250 mls @ 3,000 mls/hr 02/21/19 16:14 Normal Saline - IV 02/22/19 16:14 PRN PRN Hypotension during Dialysis Insulin Aspart 1 vial 02/17/19 22:00 02/24/19 11:47 Novolog Vial Sliding Scale - SQ Not Given ACHS [facility] Protocol Lamotrigine 100 mg 02/18/19 10:00 02/24/19 09:46 Lamictal - PO Not Given DAILY [facility] Pantoprazole Sodium 40 mg 02/19/19 11:30 02/24/19 09:46 Protonix Iv IVPUSH 40 mg BID [facility] Administration ASSESSMENT/PLAN: 68 M with PMH of DM, HTN, HLD, CKD, obesity, bipolar disorder, depression, and anxiety, who was brought to ED after being found down on the floor by brother with AMS. 1) AMS -Likely a toxic metabolic encephalopathy from uremia or electrolyte abnormalities or DKA. Has no recollection of what occurred before admission. -F/U MRI -CT head negative -F/U repeat CT Head negative for bleeds -Urine culture negative -1/2 NS @75 ml/hr -Insulin drip held -Sliding scale insulin -Endocrinology consulted, appreciate recs -Neurology consulted, appreciate recs 2) SMITA -Hemodialysis was partially completed yesterday due to blockage. -Strict I/O. Balance: -222 ml -Rhabdomyolysis resolved -Renal U/S unremarkable -Nephrology consulted, appreciate recs 3) Pneumonia -CT Abdomen shows extensive bilateral lower lobe consolidation, right > left. -Zoysn 2.25 gram IV Q8H -ID consulted, appreciate recs -Legionella negative. 4)New onset Afib -Cardizem PO 30 mg TID PRN -Restart heparin drip, will hold in the morning for pre-op. -Cardiology consulted, appreciate recs -Echo shows normal EF -Normal sinus now 5) Wounds on lower chest, upper abdomen, hip NPO after midnight for debridement tomorrow 6)Coffee ground emesis Resolved 7)History of Bipolar disorder -Holding home meds Dispo: ICU monitoring F: 1/2 NS @ 75 ml/hr E: Trend CMP. Replete as needed N: NPO DVT: SCDS Visit type - Emergency Visit Emergency Visit: Yes ED Registration Date: 02/16/19 Care time: The patient presented to the Emergency Department on the above date and was hospitalized for further evaluation of their emergent condition. - New Patient This patient is new to me today: No - Critical Care Critical Care patient: Yes Total Critical Care Time (in minutes): 30 Critical Care Statement: The care of this patient involved high complexity decision making to prevent further life threatening deterioration of the patient 's condition and/or to evaluate & treat vital organ system(s) failure or risk of failure. ATTENDING PHYSICIAN STATEMENT I saw and evaluated the patient. I reviewed the resident's note and discussed the case with the resident. I agree with the resident's findings and plan as documented. SUBJECTIVE: OBJECTIVE: ASSESSMENT AND PLAN:
--- NOTE | 2019-02-24 15:10 | PN ---
Progress Note, Physician Chief Complaint: Extubated History of Present Illness: Patient was seen and examined. Awake. Chart was reviewed Denies chest pain or SOB - Current Medication List Current Medications: Active Medications Acetaminophen (Ofirmev Injection -) 1,000 mg IVPB Q6H PRN PRN Reason: FEVER Last Admin: 02/23/19 05:19 Dose: 1,000 mg Calcitriol (Rocaltrol -) 0.25 mcg PO DAILY [facility] Last Admin: 02/24/19 09:47 Dose: Not Given Calcium Acetate (Phoslo -) 667 mg PO TIDCM [facility] Last Admin: 02/24/19 11:38 Dose: Not Given Chlorhexidine Gluconate (Hibiclens For Decolonization -) 1 applic TP HS [facility] Last Admin: 02/23/19 22:31 Dose: 1 applic Clotrimazole (Lotrimin 1% Cream -) 1 applic TP BID [facility] Last Admin: 02/24/19 09:47 Dose: 1 applic Diltiazem HCl (Cardizem -) 30 mg PO TID [facility] Last Admin: 02/24/19 05:49 Dose: Not Given Sodium Chloride (1/2 Normal Saline) 1,000 mls @ 75 mls/hr IV ASDIR [facility] Last Admin: 02/24/19 11:43 Dose: 75 mls/hr Piperacillin Sod/Tazobactam (Sod 2.25 gm/ Dextrose) 50 mls @ 100 mls/hr IVPB Q8H-IV [facility]; Protocol Last Admin: 02/24/19 09:46 Dose: 100 mls/hr Sodium Chloride (Normal Saline -) 250 mls @ 3,000 mls/hr IV PRN PRN PRN Reason: Hypotension during Dialysis Stop: 02/22/19 11:00 Sodium Chloride (Normal Saline -) 250 mls @ 3,000 mls/hr IV PRN PRN PRN Reason: Hypotension during Dialysis Stop: 02/22/19 16:14 Insulin Aspart (Novolog Vial Sliding Scale -) 1 vial SQ ACHS [facility]; Protocol Last Admin: 02/24/19 11:47 Dose: Not Given Lamotrigine (Lamictal -) 100 mg PO DAILY [facility] Last Admin: 02/24/19 09:46 Dose: Not Given Pantoprazole Sodium (Protonix Iv) 40 mg IVPUSH BID [facility] Last Admin: 02/24/19 09:46 Dose: 40 mg - Objective Vital Signs: Vital Signs Temperature 98 F 02/24/19 10:00 Pulse Rate 74 02/24/19 14:00 Respiratory Rate 18 02/24/19 14:00 Blood Pressure 138/74 02/24/19 14:00 O2 Sat by Pulse Oximetry (%) 97 02/24/19 09:00 Neck: Yes: Supple Cardiovascular: Yes: Regular Rate and Rhythm, S1, S2 Respiratory: Yes: Diminished Gastrointestinal: Yes: Normal Bowel Sounds, Soft. No: Tenderness Edema: No Labs: CBC, BMP 02/24/19 06:00 02/24/19 06:00 INR, PTT INR 1.08 (0.83-1.09) 02/24/19 09:00 Problem List - Problems (1) HTN (hypertension) Code(s): I10 - ESSENTIAL (PRIMARY) HYPERTENSION (2) Hypercholesterolemia Code(s): E78.00 - PURE HYPERCHOLESTEROLEMIA, UNSPECIFIED (3) Bipolar disorder Code(s): F31.9 - BIPOLAR DISORDER, UNSPECIFIED (4) Leukocytosis Code(s): D72.829 - ELEVATED WHITE BLOOD CELL COUNT, UNSPECIFIED (5) Renal failure Code(s): N19 - UNSPECIFIED KIDNEY FAILURE (6) Rhabdomyolysis Code(s): M62.82 - RHABDOMYOLYSIS Assessment/Plan 1. Questionable syncope, altered mental status 2. Acute respiratory failure 3. Coronary artery disease/visual coronary artery calcification angina pectoris 4. Diastolic LV dysfunction with clinical class 0 NYHA classification LV failure 5. PAF currently in sinus rhythm [id number] score of either 2-3 currently on no A/C recent coffee ground emesis/GI bleed 6. History of HTN 7. Hypercholesterolemia 8. Acute on CKD requiring HD 9. Bipolar disorder, depression and anxiety 10. History of coffee ground emesis- resolved etiology unclear PLAN: 1. Resumption of anticoagulation once full hemostasis is achieved 2. HD per renal service 4. Continue Cardizem as tolerated 5. Antibiotics coverage 6. Future GI evaluation for the above noted GI bleed would be recommended specially with planned shelter A/C utilization Andi Vázquez MD
[2019-02-24] MEDS ORDERED: HEPARIN NA (PORCINE) 5,000 UNITS/ML 1ML VIAL IVPUSH PRN ×2 (15:29)
[2019-02-24] MEDS ORDERED: HEPARIN - 25,000 UNIT in SODIUM CHLORIDE 495 ML IV SCH (15:30)
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
[2019-02-24] MEDS ORDERED: PT OWN MED DRAWER 7, Y5N ONE ×2 (16:37→21:43)
[2019-02-24 18:07] LABS: ATYPICAL pANCA <1:20 titer (Neg:<1:20); C-ANCA <1:20 titer (Neg:<1:20)
[2019-02-24] MEDS ORDERED: FLU VACCINE QUAD 60 MCG/0.5 ML (MDV 19-20) IM ONE (21:00)
[2019-02-24] MEDS ORDERED: PNEUMOC 13-VAL CONJ-DIP CRM/PF 0.5 ML DISP.SYRIN IM ONE (21:00)
--- NOTE | 2019-02-24 21:43 | PN ---
Progress Note, Physician History of Present Illness: AWAKE, ALERT EXTUBATED BREATHING NON LABORED AFEBRILE WBC IMPROVED WNL BC (-) SPUTUM NORMAL VERONICA LEGIONELLA AG (-) - Current Medication List Current Medications: Active Medications Acetaminophen (Ofirmev Injection -) 1,000 mg IVPB Q6H PRN PRN Reason: FEVER Last Admin: 02/23/19 05:19 Dose: 1,000 mg Calcitriol (Rocaltrol -) 0.25 mcg PO DAILY [facility] Last Admin: 02/24/19 09:47 Dose: Not Given Calcium Acetate (Phoslo -) 667 mg PO TIDCM [facility] Last Admin: 02/24/19 17:33 Dose: 667 mg Chlorhexidine Gluconate (Hibiclens For Decolonization -) 1 applic TP HS [facility] Last Admin: 02/23/19 22:31 Dose: 1 applic Clotrimazole (Lotrimin 1% Cream -) 1 applic TP BID [facility] Last Admin: 02/24/19 09:47 Dose: 1 applic Diltiazem HCl (Cardizem -) 30 mg PO TID [facility] Last Admin: 02/24/19 17:00 Dose: 30 mg Heparin Sodium (Porcine) (Heparin -) 5,000 unit IVPUSH PRN PRN PRN Reason: APTT (SECONDS) <40 Stop: 02/25/19 00:00 Heparin Sodium (Porcine) (Heparin -) 1,000 unit IVPUSH PRN PRN PRN Reason: APTT (SECONDS) 40-49 Stop: 02/25/19 00:00 Sodium Chloride (1/2 Normal Saline) 1,000 mls @ 75 mls/hr IV ASDIR [facility] Last Admin: 02/24/19 17:32 Dose: 75 mls/hr Piperacillin Sod/Tazobactam (Sod 2.25 gm/ Dextrose) 50 mls @ 100 mls/hr IVPB Q8H-IV [facility]; Protocol Last Admin: 02/24/19 17:33 Dose: 100 mls/hr Sodium Chloride (Normal Saline -) 250 mls @ 3,000 mls/hr IV PRN PRN PRN Reason: Hypotension during Dialysis Stop: 02/22/19 11:00 Sodium Chloride (Normal Saline -) 250 mls @ 3,000 mls/hr IV PRN PRN PRN Reason: Hypotension during Dialysis Stop: 02/22/19 16:14 Heparin Sodium (Porcine) 25, (000 unit/ Sodium Chloride) 500 mls @ 20 mls/hr IV TITR [facility]; Protocol Stop: 02/25/19 00:00 Last Admin: 02/24/19 17:32 Dose: 1,000 unit/hr, 20 mls/hr Insulin Aspart (Novolog Vial Sliding Scale -) 1 vial SQ ACHS [facility]; Protocol Last Admin: 02/24/19 17:33 Dose: 2 units Lamotrigine (Lamictal -) 100 mg PO DAILY [facility] Last Admin: 02/24/19 09:46 Dose: Not Given Pantoprazole Sodium (Protonix Iv) 40 mg IVPUSH BID [facility] Last Admin: 02/24/19 09:46 Dose: 40 mg - Objective Vital Signs: Vital Signs Temperature 99.1 F 02/24/19 17:38 Pulse Rate 76 02/24/19 17:38 Respiratory Rate 18 02/24/19 17:38 Blood Pressure 149/74 02/24/19 17:38 O2 Sat by Pulse Oximetry (%) 97 02/24/19 09:00 Constitutional: Yes: No Distress Eyes: Yes: Conjunctiva Clear Cardiovascular: Yes: Regular Rate and Rhythm, S1, S2 Respiratory: Yes: Diminished Gastrointestinal: Yes: Normal Bowel Sounds, Soft Labs: CBC, BMP 02/24/19 06:00 02/24/19 06:00 INR, PTT INR 1.08 (0.83-1.09) 02/24/19 09:00 Assessment/Plan RESPIRATORY FAILURE S/P EXTUBATION PNEUMONIA ?CVA LEUKOCYTOSIS RESOLVED RENAL FAILURE CONTINUE EMPIRIC ZOSYN
[2019-02-24] MEDS: CHLORHEXIDINE GLUCONATE 4% CLEANSER FOR DECOLONIZATION TP SCH (21:46)
--- NOTE | 2019-02-25 00:42 | PN ---
Progress Note, Physician Chief Complaint: awake alert vague - Current Medication List Current Medications: Active Medications Acetaminophen (Ofirmev Injection -) 1,000 mg IVPB Q6H PRN PRN Reason: FEVER Last Admin: 02/23/19 05:19 Dose: 1,000 mg Calcitriol (Rocaltrol -) 0.25 mcg PO DAILY [facility] Last Admin: 02/24/19 09:47 Dose: Not Given Calcium Acetate (Phoslo -) 667 mg PO TIDCM [facility] Last Admin: 02/24/19 17:33 Dose: 667 mg Chlorhexidine Gluconate (Hibiclens For Decolonization -) 1 applic TP HS [facility] Last Admin: 02/24/19 21:46 Dose: 1 applic Clotrimazole (Lotrimin 1% Cream -) 1 applic TP BID [facility] Last Admin: 02/24/19 22:10 Dose: 1 applic Diltiazem HCl (Cardizem -) 30 mg PO TID [facility] Last Admin: 02/24/19 21:45 Dose: 30 mg Sodium Chloride (1/2 Normal Saline) 1,000 mls @ 75 mls/hr IV ASDIR [facility] Last Admin: 02/24/19 17:32 Dose: 75 mls/hr Piperacillin Sod/Tazobactam (Sod 2.25 gm/ Dextrose) 50 mls @ 100 mls/hr IVPB Q8H-IV [facility]; Protocol Last Admin: 02/24/19 17:33 Dose: 100 mls/hr Sodium Chloride (Normal Saline -) 250 mls @ 3,000 mls/hr IV PRN PRN PRN Reason: Hypotension during Dialysis Stop: 02/22/19 11:00 Sodium Chloride (Normal Saline -) 250 mls @ 3,000 mls/hr IV PRN PRN PRN Reason: Hypotension during Dialysis Stop: 02/22/19 16:14 Insulin Aspart (Novolog Vial Sliding Scale -) 1 vial SQ ACHS [facility]; Protocol Last Admin: 02/24/19 23:58 Dose: Not Given Lamotrigine (Lamictal -) 100 mg PO DAILY [facility] Last Admin: 02/24/19 09:46 Dose: Not Given Pantoprazole Sodium (Protonix Iv) 40 mg IVPUSH BID [facility] Last Admin: 02/24/19 21:46 Dose: 40 mg - Objective Vital Signs: Vital Signs Temperature 98 F 02/24/19 22:00 Pulse Rate 76 02/24/19 22:00 Respiratory Rate 12 02/24/19 22:00 Blood Pressure 158/73 02/24/19 22:00 O2 Sat by Pulse Oximetry (%) 98 02/24/19 22:00 Constitutional: Yes: Calm Eyes: Yes: EOM Intact HENT: Yes: Normocephalic Neck: Yes: Trachea Midline Cardiovascular: Yes: Tachycardia Respiratory: Yes: Diminished Gastrointestinal: Yes: Normal Bowel Sounds ...Rectal Exam: Yes: Deferred Extremities: Yes: Cool, Delayed Capillary Refill, Erythema Edema: Yes Wound/Incision: Yes: Excoriated, Unapproximated Neurological: Yes: Alert, Confusion, Weakness Labs: CBC, BMP 02/24/19 06:00 02/24/19 06:00 INR, PTT INR 1.08 (0.83-1.09) 02/24/19 09:00 Problem List - Problems (1) DKA (diabetic ketoacidoses) Problems reviewed: Yes Code(s): E11.10 - TYPE 2 DIABETES MELLITUS WITH KETOACIDOSIS WITHOUT COMA Qualifiers: Diabetes mellitus type: type 2 (2) HTN (hypertension) Problems reviewed: Yes Code(s): I10 - ESSENTIAL (PRIMARY) HYPERTENSION (3) Hypercholesterolemia Problems reviewed: Yes Code(s): E78.00 - PURE HYPERCHOLESTEROLEMIA, UNSPECIFIED (4) Leukocytosis Problems reviewed: Yes Code(s): D72.829 - ELEVATED WHITE BLOOD CELL COUNT, UNSPECIFIED (5) Renal failure Problems reviewed: Yes Code(s): N19 - UNSPECIFIED KIDNEY FAILURE (6) Rhabdomyolysis Code(s): M62.82 - RHABDOMYOLYSIS (7) Uremia Code(s): N19 - UNSPECIFIED KIDNEY FAILURE Assessment/Plan Current Active Problems Bipolar disorder (Acute) Coffee ground emesis (Acute) DKA (diabetic ketoacidoses) (Acute) HTN (hypertension) (Acute) Hypercholesterolemia (Acute) Leukocytosis (Acute) Paroxysmal atrial fibrillation with rapid ventricular response (Acute) Renal failure (Acute) Rhabdomyolysis (Acute) Stroke (Acute) Unstageable pressure injury of skin and tissue (Acute) Uremia (Acute) Abnormal Lab Results 02/20/19 02/24/19 02/24/19 06:05 06:00 06:00 RBC 3.53 L Hgb 11.3 L Hct 32.9 L Plt Count 123 L BUN 62.4 H Creatinine 2.5 H Random Glucose 130 H Calcium 7.9 L Total Bilirubin 1.6 H Total Protein 5.1 L Total Protein (PEP) 4.7 L Albumin 1.7 L Albumin (PEP) 2.1 L Laboratory Results - last 24 hr 02/20/19 02/20/19 02/24/19 06:05 06:05 05:51 WBC RBC Hgb Hct MCV MCH MCHC RDW Plt Count MPV PT with INR INR PTT (Actin FS) Sodium Potassium Chloride Carbon Dioxide Anion Gap BUN Creatinine Est GFR (CKD-EPI)AfAm Est GFR (CKD-EPI)NonAf POC Glucometer 147 Random Glucose Calcium Magnesium Total Bilirubin AST ALT Alkaline Phosphatase Total Protein Total Protein (PEP) 4.7 L Albumin Albumin (PEP) 2.1 L Globulin 2.6 Albumin/Globulin Ratio 0.8 Beta Globulins 0.7 TY M-Tremaine Not observed c-ANCA <1:20 Proteinase 3 (PR3) <3.5 p-ANCA <1:20 Atypical p-ANCA <1:20 Myeloperoxidase Ab <9.0 Glomerular Base Memb Ab 3 Blood Type Antibody Screen 02/24/19 02/24/19 02/24/19 06:00 06:00 09:00 WBC 8.5 RBC 3.53 L Hgb 11.3 L Hct 32.9 L MCV 93.1 MCH 31.9 MCHC 34.3 RDW 13.2 Plt Count 123 L MPV 10.4 PT with INR INR PTT (Actin FS) Sodium 141 Potassium 3.7 Chloride 102 Carbon Dioxide 29 Anion Gap 9 BUN 62.4 H Creatinine 2.5 H Est GFR (CKD-EPI)AfAm 29.68 Est GFR (CKD-EPI)NonAf 25.61 POC Glucometer Random Glucose 130 H Calcium 7.9 L Magnesium 2.1 Total Bilirubin 1.6 H AST 26 ALT 32 Alkaline Phosphatase 103 Total Protein 5.1 L Total Protein (PEP) Albumin 1.7 L Albumin (PEP) Globulin Albumin/Globulin Ratio Beta Globulins TY M-Tremaine c-ANCA Proteinase 3 (PR3) p-ANCA Atypical p-ANCA Myeloperoxidase Ab Glomerular Base Memb Ab Blood Type A NEGATIVE Antibody Screen Negative 02/24/19 02/24/19 02/24/19 09:00 11:46 16:43 WBC RBC Hgb Hct MCV MCH MCHC RDW Plt Count MPV PT with INR 12.80 INR 1.08 PTT (Actin FS) 27.0 Sodium Potassium Chloride Carbon Dioxide Anion Gap BUN Creatinine Est GFR (CKD-EPI)AfAm Est GFR (CKD-EPI)NonAf POC Glucometer 150 169 Random Glucose Calcium Magnesium Total Bilirubin AST ALT Alkaline Phosphatase Total Protein Total Protein (PEP) Albumin Albumin (PEP) Globulin Albumin/Globulin Ratio Beta Globulins TY M-Tremaine c-ANCA Proteinase 3 (PR3) p-ANCA Atypical p-ANCA Myeloperoxidase Ab Glomerular Base Memb Ab Blood Type Antibody Screen 02/24/19 02/24/19 22:29 23:30 WBC RBC Hgb Hct MCV MCH MCHC RDW Plt Count MPV PT with INR INR PTT (Actin FS) 30.6 Sodium Potassium Chloride Carbon Dioxide Anion Gap BUN Creatinine Est GFR (CKD-EPI)AfAm Est GFR (CKD-EPI)NonAf POC Glucometer 139 Random Glucose Calcium Magnesium Total Bilirubin AST ALT Alkaline Phosphatase Total Protein Total Protein (PEP) Albumin Albumin (PEP) Globulin Albumin/Globulin Ratio Beta Globulins TY M-Tremaine c-ANCA Proteinase 3 (PR3) p-ANCA Atypical p-ANCA Myeloperoxidase Ab Glomerular Base Memb Ab Blood Type Antibody Screen plan: continue bgm coverage as ordered once diet improves will start levemir 10 units am
[2019-02-25] MEDS ORDERED: PIPERACILLIN/TAZOBACTAM 2.25 GM VIAL IVPB ONE ×3 (01:06→15:56)
[2019-02-25] MEDS ORDERED: DEXTROSE 5%-WATER - 50 ML IVPB ONE ×3 (01:07→15:56)
[2019-02-25] MEDS: PIPERACILLIN/TAZOB 2.25 GM 2.25 GM in DEXTROSE 5%-WATER - 50 ML IVPB SCH ×3 (01:13→17:11)
[2019-02-25] MEDS: dilTIAZem HCL 30 MG TABLET (FP) PO SCH ×2 (05:33→13:09)
[2019-02-25] MEDS: INSULIN SLIDING SCALE (NOVOLOG) 1 VIAL SQ SCH ×3 (06:19→16:06)
[2019-02-25 07:20] LABS: BASO % 0.6 % (0-2.0); EOS % 1.6 % (0-4.5); HEMATOCRIT 32.4 % (35.4-49); HEMOGLOBIN 11.1 GM/dL (11.7-16.9); MCH 31.8 pg (25.7-33.7); MCHC 34.3 g/dl (32.0-35.9); MEAN CELL VOLUME 92.7 fl (80-96); MONO % 7.5 % (3.8-10.2); NEUT % 85.3 % (42.8-82.8); PLATELET COUNT 151 K/MM3 (134-434); RDW 13.3 % (11.9-15.9); WHITE BLOOD COUNT 7.8 K/mm3 (4.0-10.0)
[2019-02-25 07:45] LABS: ALBUMIN 1.7 g/dl (3.4-5.0); BILIRUBIN,TOTAL 1.5 mg/dL (0.2-1); BLOOD UREA NITROGEN 62.7 mg/dL (7-18); CALCIUM 8.1 mg/dL (8.5-10.1); CREATININE 2.3 mg/dL (0.55-1.3); POTASSIUM 3.7 mmol/L (3.5-5.1); TOT PROT 5.2 g/dl (6.4-8.2)
[2019-02-25] MEDS: CALCIUM ACETATE 667 MG CAPSULE (FP) PO SCH ×3 (07:51→17:11)
--- NOTE | 2019-02-25 08:56 | PN ---
Progress Note (short form) - Note Progress Note: Neurology CHIEF COMPLAINT: CVA PCP: unknown, psychiatrist Dr. Steve Navarro HISTORY OF PRESENT ILLNESS: Mr. Burnette is a 68 y/o man with a pmhx of kidney disease, DM, HTN, HLD, obesity, bipolar disorder, depression, and anxiety who is BIBA after being found down in his apt for an unknown period of time. History obtained from chart as pt was confused on exam and was unable to answer questions. Per the patient's brother, the pt had an appointment with a friend I gave admission and when he did not show up the pt's friend called the police to do a wellness check (the pt did not name the friend). Police found the pt down in his apartment and he was brought to the hospital by EMS, unclear how long the pt was down for. I was contacted by the emergency department for further evaluation as the patient demonstrated an NIH stroke scale of 14. Time of onset was unknown and additionally patient with generalized confusion and weakness more so than just focal deficits and therefore concern for possible underlying toxic metabolic, infectious, diffuse process. CT head without acute changes but there was multiple metabolic derangements on lab work. White blood cell count was 12 on admission. BUN/creatinine was 252//6.2 on admission. WBC, BUN/Cr. trending down. Lastly, blood glucose was 329 on admission, being optimized. Carotid Doppler completed, small-moderate size soft plaque at the right common carotid bifurcation with intimal thickening and minimal plaque buildup on the left without evidence of hemodynamically significant stenosis bilaterally. Brain MRI ordered, not yet completed. Patient under critical care management, patient intubated on 02/18, patient extubated on 02/23. Underlying derangements improving and receiving continued optimization. Repeat head ct compeleted 02/20 - moderate atrophy without gross acute intracranial pathology , chronic sinusitis and right mastoid effusion. Awake, alert and conversant this morning. Does not recognize me and is not able to tell me the exact location, did not indicate hospital today. Did not know the correct month or year. Discussed with the resident at beside, MRI brain may be of benefit, ordered previously and now the patient extubated may be able to have completed. Patient still disoriented and not fully coherent yet. Active Medications Acetaminophen (Ofirmev Injection -) 1,000 mg IVPB Q6H PRN PRN Reason: FEVER Last Admin: 02/23/19 05:19 Dose: 1,000 mg Calcitriol (Rocaltrol -) 0.25 mcg PO DAILY [facility] Last Admin: 02/24/19 09:47 Dose: Not Given Calcium Acetate (Phoslo -) 667 mg PO TIDCM [facility] Last Admin: 02/25/19 07:51 Dose: 667 mg Chlorhexidine Gluconate (Hibiclens For Decolonization -) 1 applic TP HS [facility] Last Admin: 02/24/19 21:46 Dose: 1 applic Clotrimazole (Lotrimin 1% Cream -) 1 applic TP BID [facility] Last Admin: 02/24/19 22:10 Dose: 1 applic Diltiazem HCl (Cardizem -) 30 mg PO TID [facility] Last Admin: 02/25/19 05:33 Dose: 30 mg Sodium Chloride (1/2 Normal Saline) 1,000 mls @ 75 mls/hr IV ASDIR [facility] Last Admin: 02/24/19 17:32 Dose: 75 mls/hr Piperacillin Sod/Tazobactam (Sod 2.25 gm/ Dextrose) 50 mls @ 100 mls/hr IVPB Q8H-IV [facility]; Protocol Last Admin: 02/25/19 01:13 Dose: 100 mls/hr Sodium Chloride (Normal Saline -) 250 mls @ 3,000 mls/hr IV PRN PRN PRN Reason: Hypotension during Dialysis Stop: 02/22/19 11:00 Sodium Chloride (Normal Saline -) 250 mls @ 3,000 mls/hr IV PRN PRN PRN Reason: Hypotension during Dialysis Stop: 02/22/19 16:14 Insulin Aspart (Novolog Vial Sliding Scale -) 1 vial SQ ACHS [facility]; Protocol Last Admin: 02/25/19 06:19 Dose: 2 units Lamotrigine (Lamictal -) 100 mg PO DAILY [facility] Last Admin: 02/24/19 09:46 Dose: Not Given Pantoprazole Sodium (Protonix Iv) 40 mg IVPUSH BID [facility] Last Admin: 02/24/19 21:46 Dose: 40 mg PHYSICAL EXAMINATION Vital Signs Period Temp Pulse Resp BP Sys/Verdugo Pulse Ox Last 24 Hr 98 F-99.8 F 68-80 10-18 101-160/65-86 97-98 GENERAL: intubated and sedated HEAD: Normal with no signs of trauma. EYES: Pupils equal, round and reactive to light, extraocular movements intact, sclera anicteric, conjunctiva clear. No lid lag. LUNGS: Breath sounds equal, HEART: Regular rate irregularly irregular rhythm, normal S1 and S2 without murmur. ABDOMEN: Soft, not distended, normoactive bowel sounds, skin breakdown on R side of abdomen with sloughing wounds and ecchymosis, very TTP, guarding, no rebound, no masses, reducible umbilical hernia. UPPER EXTREMITIES: 2+ pulses, warm, well-perfused. No cyanosis. No clubbing. No peripheral edema. Cuts on bilateral elbows LOWER EXTREMITIES: 2+ pulses, warm, well-perfused. No calf tenderness. No peripheral edema. NEUROLOGICAL: intuabted, response to voice, not moving extremities to command, response to pain PSYCHIATRIC: Cooperative. poor eye contact. SKIN: +pressure ulcer to the right hip, skin breakdown to the right side of the abdomen, Abrasions to the right side of the face. Warm and dry. CBCD WBC 7.8 K/mm3 (4.0-10.0) 02/25/19 06:00 RBC 3.50 M/mm3 (4.00-5.60) L 02/25/19 06:00 Hgb 11.1 GM/dL (11.7-16.9) L 02/25/19 06:00 Hct 32.4 % (35.4-49) L 02/25/19 06:00 MCV 92.7 fl (80-96) 02/25/19 06:00 MCHC 34.3 g/dl (32.0-35.9) 02/25/19 06:00 RDW 13.3 % (11.9-15.9) 02/25/19 06:00 Plt Count 151 K/MM3 (134-434) D 02/25/19 06:00 MPV 10.0 fl (7.5-11.1) 02/25/19 06:00 CMP Sodium 142 mmol/L (136-145) 02/25/19 06:00 Potassium 3.7 mmol/L (3.5-5.1) 02/25/19 06:00 Chloride 107 mmol/L (98-107) 02/25/19 06:00 Carbon Dioxide 27 mmol/L (21-32) 02/25/19 06:00 Anion Gap 8 MMOL/L (8-16) 02/25/19 06:00 BUN 62.7 mg/dL (7-18) H 02/25/19 06:00 Creatinine 2.3 mg/dL (0.55-1.3) H 02/25/19 06:00 Random Glucose 142 mg/dL (74-106) H 02/25/19 06:00 Calcium 8.1 mg/dL (8.5-10.1) L 02/25/19 06:00 Total Bilirubin 1.5 mg/dL (0.2-1) H 02/25/19 06:00 AST 26 U/L (15-37) 02/25/19 06:00 ALT 34 U/L (13-61) 02/25/19 06:00 Alkaline Phosphatase 84 U/L (45-117) 02/25/19 06:00 Total Protein 5.2 g/dl (6.4-8.2) L 02/25/19 06:00 Albumin 1.7 g/dl (3.4-5.0) L 02/25/19 06:00 CARDIAC ENZYMES Creatine Kinase 950 U/L (26-308) H 02/17/19 16:15 Troponin I 0.04 ng/ml (0.00-0.05) 02/17/19 16:15 ASSESSMENT/PLAN: Mr. Burnette is a 68 y/o man with a pmhx of kidney disease, DM, HTN, HLD, obesity , bipolar disorder, depression, and anxiety who is BIBA after being found down in his apt for an unknown period of time. History obtained from chart as pt was confused on exam and was unable to answer questions. Per the patient's brother, the pt had an appointment with a friend I gave admission and when he did not show up the pt's friend called the police to do a wellness check (the pt did not name the friend). Police found the pt down in his apartment and he was brought to the hospital by EMS, unclear how long the pt was down for. Per the patient's brother, the pt is normally fully independent and able to complete all his ADLs unassisted. [facility] and per the brother the pt keeps up with all his doctor appointments and takes his medications as prescribed. The pt's brother was unable to state what medicines his brother uses or which pharmacy his brother uses however states that his brother's psychiatrist is Dr. Steve Navarro and that he may know the answers to these questions. The brother reports he last saw the patient about 3 months ago. I was contacted by the emergency department for further evaluation as the patient demonstrated an NIH stroke scale of 14. Time of onset was unknown and additionally patient with generalized confusion and weakness more so than just focal deficits and therefore concern for possible underlying toxic metabolic, infectious, diffuse process. CT head without acute changes but there was multiple metabolic derangements on lab work. White blood cell count was 12 on admission. BUN/creatinine was 252//6.2 on admission. WBC, BUN/Cr. trending down. Lastly, blood glucose was 329 on admission, continues to be optimized. Carotid Doppler completed, small-moderate yesenia soft plaque at the right common carotid bifurcation with intimal thickening and minimal plaque buildup on the left without evidence of hemodynamically significant stenosis bilaterally. Would benefit from MRI brain to rule out CVA this seems more to be a diffuse generalized process and requires further medical optimization. Brain MRI ordered , not yet completed. Patient under critical care management. Repeat head ct compeleted 02/20 - moderate atrophy without gross acute intracranial pathology , chronic sinusitis and right mastoid effusion. Patient under critical care management, patient intubated on 02/18, patient extubated on 02/23. Underlying derangements improving and receiving continued optimization. Diabetic ketoacidosis, monitor glucose, maintain euglycemic range. Monitor electrolytes, follow-up recommendations from nephrology, IV hydration as tolerated, correct derangments. Monitor blood pressure, maintain less than 140/ 90. Follow up cultures. Wound care. Receiving ICU level of care. Awake, alert and conversant this morning. Does not recognize me and is not able to tell me the exact location, did not indicate hospital today. Did not know the correct month or year. Discussed with the resident at beside, MRI brain may be of benefit, ordered previously and now the patient extubated may be able to have completed. Patient still disoriented and not fully coherent yet. Possibly for downgrade to floor status. Critical care time 35 mins.
[2019-02-25] MEDS: lamoTRIgine 100 MG TABLET (FP) PO SCH (08:59)
[2019-02-25] MEDS: CALCITRIOL 0.25 MCG CAPSULE (FP) PO SCH (08:59)
[2019-02-25] MEDS: PANTOPRAZOLE SODIUM 40 MG VIAL IVPUSH SCH (08:59)
[2019-02-25] MEDS: CLOTRIMAZOLE 1% CREAM 15 GM TUBE TP SCH (08:59)
--- NOTE | 2019-02-25 10:08 | PN ---
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 SERVICES SPECIALIST - Note Progress Note: Selected Entries 02/24/19 02/24/19 02/24/19 00:00 02:01 04:00 Temperature 98.3 F Blood Pressure 92/81 144/62 127/60 02/24/19 02/24/19 02/24/19 06:00 08:00 10:00 Temperature 98.2 F 98 F Blood Pressure 126/110 H 155/68 101/65 02/24/19 02/24/19 02/24/19 12:00 14:00 16:00 Temperature 99.8 F H Blood Pressure 138/74 138/74 146/78 02/24/19 02/24/19 02/24/19 17:38 20:00 22:00 Temperature 99.1 F 98 F Blood Pressure 149/74 160/76 158/73 02/25/19 02/25/19 02/25/19 00:00 02:00 04:00 Temperature 99.6 F Blood Pressure 158/77 157/79 107/86 02/25/19 02/25/19 06:00 08:00 Temperature 98.6 F Blood Pressure 154/77 157/79 Laboratory Tests 02/24/19 02/25/19 06:00 06:00 WBC 8.5 7.8 Slow to respond and formulate but oriented. MRI brain ordered. NPO pending debridement. Pt is hungry. Swallow was brisk in ED. NPO since.
--- NOTE | 2019-02-25 10:30 | PN ---
Progress Note, Physician Chief Complaint: Still disoriented Awake History of Present Illness: Patient was seen and examined. Awake. Chart was reviewed Denies chest pain or SOB - Current Medication List Current Medications: Active Medications Acetaminophen (Ofirmev Injection -) 1,000 mg IVPB Q6H PRN PRN Reason: FEVER Last Admin: 02/23/19 05:19 Dose: 1,000 mg Calcitriol (Rocaltrol -) 0.25 mcg PO DAILY [facility] Last Admin: 02/25/19 08:59 Dose: 0.25 mcg Calcium Acetate (Phoslo -) 667 mg PO TIDCM [facility] Last Admin: 02/25/19 07:51 Dose: 667 mg Chlorhexidine Gluconate (Hibiclens For Decolonization -) 1 applic TP HS [facility] Last Admin: 02/24/19 21:46 Dose: 1 applic Clotrimazole (Lotrimin 1% Cream -) 1 applic TP BID [facility] Last Admin: 02/25/19 08:59 Dose: 1 applic Diltiazem HCl (Cardizem -) 30 mg PO TID [facility] Last Admin: 02/25/19 05:33 Dose: 30 mg Sodium Chloride (1/2 Normal Saline) 1,000 mls @ 75 mls/hr IV ASDIR [facility] Last Admin: 02/24/19 17:32 Dose: 75 mls/hr Piperacillin Sod/Tazobactam (Sod 2.25 gm/ Dextrose) 50 mls @ 100 mls/hr IVPB Q8H-IV [facility]; Protocol Last Admin: 02/25/19 08:59 Dose: 100 mls/hr Sodium Chloride (Normal Saline -) 250 mls @ 3,000 mls/hr IV PRN PRN PRN Reason: Hypotension during Dialysis Stop: 02/22/19 11:00 Sodium Chloride (Normal Saline -) 250 mls @ 3,000 mls/hr IV PRN PRN PRN Reason: Hypotension during Dialysis Stop: 02/22/19 16:14 Insulin Aspart (Novolog Vial Sliding Scale -) 1 vial SQ ACHS [facility]; Protocol Last Admin: 02/25/19 06:19 Dose: 2 units Lamotrigine (Lamictal -) 100 mg PO DAILY [facility] Last Admin: 02/25/19 08:59 Dose: 100 mg Pantoprazole Sodium (Protonix Iv) 40 mg IVPUSH BID [facility] Last Admin: 02/25/19 08:59 Dose: 40 mg - Objective Vital Signs: Vital Signs Temperature 98.6 F 02/25/19 06:00 Pulse Rate 82 02/25/19 08:00 Respiratory Rate 10 02/25/19 09:00 Blood Pressure 157/79 02/25/19 08:00 O2 Sat by Pulse Oximetry (%) 98 02/25/19 09:00 Neck: Yes: Supple Cardiovascular: Yes: Regular Rate and Rhythm, S1, S2 Respiratory: Yes: Diminished Gastrointestinal: Yes: Normal Bowel Sounds, Soft. No: Tenderness Edema: No Labs: CBC, BMP 02/25/19 06:00 02/25/19 06:00 INR, PTT INR 1.08 (0.83-1.09) 02/24/19 09:00 Problem List - Problems (1) HTN (hypertension) Code(s): I10 - ESSENTIAL (PRIMARY) HYPERTENSION (2) Hypercholesterolemia Code(s): E78.00 - PURE HYPERCHOLESTEROLEMIA, UNSPECIFIED (3) Bipolar disorder Code(s): F31.9 - BIPOLAR DISORDER, UNSPECIFIED (4) Leukocytosis Code(s): D72.829 - ELEVATED WHITE BLOOD CELL COUNT, UNSPECIFIED (5) Renal failure Code(s): N19 - UNSPECIFIED KIDNEY FAILURE (6) Rhabdomyolysis Code(s): M62.82 - RHABDOMYOLYSIS Assessment/Plan 1. Questionable syncope, altered mental status 2. Acute respiratory failure 3. Coronary artery disease/visual coronary artery calcification angina pectoris 4. Diastolic LV dysfunction with clinical class 0 NYHA classification LV failure 5. PAF currently in sinus rhythm [id number] score of either 2-3 currently on no A/C recent coffee ground emesis/GI bleed 6. History of HTN 7. Hypercholesterolemia 8. Acute on CKD requiring HD 9. Bipolar disorder, depression and anxiety 10. History of coffee ground emesis- resolved etiology unclear PLAN: 1. Resumption of anticoagulation once full hemostasis is achieved 2. HD per renal service 4. Continue Cardizem as tolerated. Additional anti-hypertensives may be needed for better BP control 5. Antibiotics coverage 6. Future GI evaluation for the above noted GI bleed would be recommended specially with planned snf A/C utilization Andi Vázquez MD
--- NOTE | 2019-02-25 10:58 | PN ---
Physical Exam: SUBJECTIVE: Patient seen and examined at morning bedside rounds. Pleasant, cooperative, A& Ox1 with no focal complaints. Patient scheduled for LE wound debridement today at 5PM. Denies nausea, vomiting, fevers, chills. Endorses improved breathing since yesterday. Heparin off and NPO for surgery. Patient up for transfer for floor management postoperatively. OBJECTIVE: Vital Signs Period Temp Pulse Resp BP Sys/Verdugo Pulse Ox Last 24 Hr 98 F-99.8 F 69-82 10-20 107-160/73-86 97-98 GENERAL: The patient is AOx1, responsive and cooperative HEAD: Normal with no signs of trauma. EYES: DANIELITO, EOMI NECK: Trachea midline LUNGS: Breath sounds equal, clear to auscultation bilaterally, no wheezes, no crackles HEART: RRR, no murmurs or rubs ABDOMEN: Soft, nontender, nondistended, normoactive bowel sounds, no guarding, no rebound, no masses. EXTREMITIES: 2+ pulses, warm, well-perfused, no edema. NEUROLOGICAL: Motor 3/5 on right, 5/5 on left. Sensations intact B/L SKIN: Warm, dry, normal turgor, eschar noted on rt hip, left knee Laboratory Results - last 24 hr 02/20/19 02/20/19 02/24/19 06:05 06:05 11:46 WBC RBC Hgb Hct MCV MCH MCHC RDW Plt Count MPV Absolute Neuts (auto) Neutrophils % Lymphocytes % Monocytes % Eosinophils % Basophils % Nucleated RBC % PTT (Actin FS) Sodium Potassium Chloride Carbon Dioxide Anion Gap BUN Creatinine Est GFR (CKD-EPI)AfAm Est GFR (CKD-EPI)NonAf POC Glucometer 150 Random Glucose Calcium Total Bilirubin AST ALT Alkaline Phosphatase Total Protein Total Protein (PEP) 4.7 L Albumin Albumin (PEP) 2.1 L Globulin 2.6 Albumin/Globulin Ratio 0.8 Beta Globulins 0.7 TY M-Tremaine Not observed c-ANCA <1:20 Proteinase 3 (PR3) <3.5 p-ANCA <1:20 Atypical p-ANCA <1:20 Myeloperoxidase Ab <9.0 Glomerular Base Memb Ab 3 Blood Type Antibody Screen 02/24/19 02/24/19 02/24/19 16:43 22:29 23:30 WBC RBC Hgb Hct MCV MCH MCHC RDW Plt Count MPV Absolute Neuts (auto) Neutrophils % Lymphocytes % Monocytes % Eosinophils % Basophils % Nucleated RBC % PTT (Actin FS) 30.6 Sodium Potassium Chloride Carbon Dioxide Anion Gap BUN Creatinine Est GFR (CKD-EPI)AfAm Est GFR (CKD-EPI)NonAf POC Glucometer 169 139 Random Glucose Calcium Total Bilirubin AST ALT Alkaline Phosphatase Total Protein Total Protein (PEP) Albumin Albumin (PEP) Globulin Albumin/Globulin Ratio Beta Globulins TY M-Tremaine c-ANCA Proteinase 3 (PR3) p-ANCA Atypical p-ANCA Myeloperoxidase Ab Glomerular Base Memb Ab Blood Type Antibody Screen 02/25/19 02/25/19 02/25/19 05:06 06:00 06:00 WBC 7.8 RBC 3.50 L Hgb 11.1 L Hct 32.4 L MCV 92.7 MCH 31.8 MCHC 34.3 RDW 13.3 Plt Count 151 D MPV 10.0 Absolute Neuts (auto) 6.7 Neutrophils % 85.3 H Lymphocytes % 5.0 L Monocytes % 7.5 Eosinophils % 1.6 Basophils % 0.6 Nucleated RBC % 0 PTT (Actin FS) Sodium 142 Potassium 3.7 Chloride 107 Carbon Dioxide 27 Anion Gap 8 BUN 62.7 H Creatinine 2.3 H Est GFR (CKD-EPI)AfAm 32.83 Est GFR (CKD-EPI)NonAf 28.33 POC Glucometer 160 Random Glucose 142 H Calcium 8.1 L Total Bilirubin 1.5 H AST 26 ALT 34 Alkaline Phosphatase 84 Total Protein 5.2 L Total Protein (PEP) Albumin 1.7 L Albumin (PEP) Globulin Albumin/Globulin Ratio Beta Globulins TY M-Tremaine c-ANCA Proteinase 3 (PR3) p-ANCA Atypical p-ANCA Myeloperoxidase Ab Glomerular Base Memb Ab Blood Type Antibody Screen 02/25/19 02/25/19 06:00 07:50 WBC RBC Hgb Hct MCV MCH MCHC RDW Plt Count MPV Absolute Neuts (auto) Neutrophils % Lymphocytes % Monocytes % Eosinophils % Basophils % Nucleated RBC % PTT (Actin FS) 30.4 Sodium Potassium Chloride Carbon Dioxide Anion Gap BUN Creatinine Est GFR (CKD-EPI)AfAm Est GFR (CKD-EPI)NonAf POC Glucometer Random Glucose Calcium Total Bilirubin AST ALT Alkaline Phosphatase Total Protein Total Protein (PEP) Albumin Albumin (PEP) Globulin Albumin/Globulin Ratio Beta Globulins TY M-Tremaine c-ANCA Proteinase 3 (PR3) p-ANCA Atypical p-ANCA Myeloperoxidase Ab Glomerular Base Memb Ab Blood Type A NEGATIVE Antibody Screen Negative Active Medications Generic Name Dose Route Start Last Admin Trade Name Rufina PRN Reason Stop Dose Admin Acetaminophen 1,000 mg 02/20/19 21:53 02/23/19 05:19 Ofirmev Injection - IVPB 1,000 mg Q6H PRN Administration FEVER Calcitriol 0.25 mcg 02/17/19 10:00 02/25/19 08:59 Rocaltrol - PO 0.25 mcg DAILY [facility] Administration Calcium Acetate 667 mg 02/17/19 08:00 02/25/19 07:51 Phoslo - PO 667 mg TIDCM [facility] Administration Chlorhexidine Gluconate 1 applic 02/17/19 22:00 02/24/19 21:46 Hibiclens For Decolonization - TP 1 applic HS [facility] Administration Clotrimazole 1 applic 02/17/19 10:00 02/25/19 08:59 Lotrimin 1% Cream - TP 1 applic BID [facility] Administration Diltiazem HCl 30 mg 02/17/19 14:00 02/25/19 05:33 Cardizem - PO 30 mg TID [facility] Administration Sodium Chloride 1,000 mls @ 75 mls/hr 02/18/19 13:40 02/24/19 17:32 1/2 Normal Saline IV 75 mls/hr ASDIR [facility] Administration Piperacillin Sod/Tazobactam 50 mls @ 100 mls/hr 02/21/19 02:00 02/25/19 08:59 Sod 2.25 gm/ Dextrose IVPB 100 mls/hr Q8H-IV [facility] Administration Protocol Sodium Chloride 250 mls @ 3,000 mls/hr 02/21/19 11:00 Normal Saline - IV 02/22/19 11:00 PRN PRN Hypotension during Dialysis Sodium Chloride 250 mls @ 3,000 mls/hr 02/21/19 16:14 Normal Saline - IV 02/22/19 16:14 PRN PRN Hypotension during Dialysis Insulin Aspart 1 vial 02/17/19 22:00 02/25/19 06:19 Novolog Vial Sliding Scale - SQ 2 units ACHS [facility] Administration Protocol Lamotrigine 100 mg 02/18/19 10:00 02/25/19 08:59 Lamictal - PO 100 mg DAILY [facility] Administration Pantoprazole Sodium 40 mg 02/19/19 11:30 02/25/19 08:59 Protonix Iv IVPUSH 40 mg BID [facility] Administration ASSESSMENT/PLAN: Pt. is a 68 y.o. M w/ PMHx. of CKD, DM, HTN, HLD, obesity, bipolar disorder, depression, and anxiety. He was brought in by EMS after being found on the ground in his apartment for an unknown period of time. According to the brother , baseline mental status is AOx3. #Neuro - Pt. extubated 02/23, awake and alert but remains confused, resume home psych meds - CT Head: No bleed, moderate atrophy, on intracranial pathology - Carotid Doppler: Plaque in RCC bifurcation, no HDS stenosis - Neuro recs: MRI head #GI - S/p NGT - CTAP: No obstruction, rectal impaction with hiatal hernia noticed - Continue Protonix BID #Respiratory - CXR 02/23: B/L changes persist #CVS - Surgical debridement scheduled today 5PM for ulcers on Left knee (medial) and Rt hip eschar - Norepi stopped, patient normotensive - AFib with RVR, rate control with Cardizem but currently on hold, may be resumed once pt hemodynamically stable - Echo: EF 60-65, mild LVH, normal LVSF, small pericardial effusion (<1cm) - Spoke with Dr. Vázquez, Cardiology, patient will not require Tele bed #Nephro - Producing urine, no HD today as per Nephro - RIJ-Trialysis catheter replaced 02/22, L Femoral Trialysis catheter removed - BUN/Cr: 109.3/4.3 -> 111.5/4.3 -> 62.4/2.5 - Chou in place, monitor I/O - UTox: Benzo and Marijuana positive - Chou has been in place 9 days, should be removed post-op today #Endo - Came in with Glucose 329, Beta Hydroxybutyrate 5.5 -> 1.0, s/p insulin drip-- > now controlled on ISS - HbA1c 6.3 #ID - WBC 11.7->13.1-> 15.8 -> 12.8 -> 19.2 -> 12.8 -> 9.2 -> 8.5 - Afebrile overnight - BCx no growth, Sputum cx normal yulissa - Ceftriaxone Day 6, Zosyn Day 4 as per ID #FEN - 0.45 N/S @ 75 - Monitor electrolytes and replete as needed - NPO except for meds #DVT PE - SCD, holding Heparin for surgery #Dispo - Had HD 02/23 - Transfer to med / surg Visit type - Emergency Visit Emergency Visit: Yes ED Registration Date: 02/16/19 Care time: The patient presented to the Emergency Department on the above date and was hospitalized for further evaluation of their emergent condition. - New Patient This patient is new to me today: No - Critical Care Critical Care patient: Yes Total Critical Care Time (in minutes): 36 Critical Care Statement: The care of this patient involved high complexity decision making to prevent further life threatening deterioration of the patient 's condition and/or to evaluate & treat vital organ system(s) failure or risk of failure. ATTENDING PHYSICIAN STATEMENT I saw and evaluated the patient. I reviewed the resident's note and discussed the case with the resident. I agree with the resident's findings and plan as documented. SUBJECTIVE: OBJECTIVE: ASSESSMENT AND PLAN:
--- NOTE | 2019-02-25 11:26 | PN ---
Teaching Attending Note Name of Resident: Julio Dobbins ATTENDING PHYSICIAN STATEMENT I saw and evaluated the patient. I reviewed the resident's note and discussed the case with the resident. I agree with the resident's findings and plan as documented. SUBJECTIVE: Pt seen and examined in the ICU. No events overnight. For debridement today. Good urine output. OBJECTIVE: Vital Signs Period Temp Pulse Resp BP Sys/Verdugo Pulse Ox Last 24 Hr 98 F-99.8 F 69-82 10-20 107-160/73-86 97-98 Intake & Output 02/22/19 02/23/19 02/24/19 02/25/19 23:59 23:59 23:59 23:59 Intake Total 1684.6 1934.2 1050 1002 Output Total 3200 550 1125 800 Balance -1515.4 1384.2 -75 202 Weight 100.516 kg 99.881 kg 101.333 kg 102.058 kg Gen: NAD at rest Heart: RRR Lung: decreased breath sounds at the bases Abd: soft, nontender Ext: no edema CBC, BMP 02/25/19 06:00 02/25/19 06:00 Active Medications Acetaminophen (Ofirmev Injection -) 1,000 mg IVPB Q6H PRN PRN Reason: FEVER Last Admin: 02/23/19 05:19 Dose: 1,000 mg Calcitriol (Rocaltrol -) 0.25 mcg PO DAILY [facility] Last Admin: 02/25/19 08:59 Dose: 0.25 mcg Calcium Acetate (Phoslo -) 667 mg PO TIDCM [facility] Last Admin: 02/25/19 07:51 Dose: 667 mg Chlorhexidine Gluconate (Hibiclens For Decolonization -) 1 applic TP HS [facility] Last Admin: 02/24/19 21:46 Dose: 1 applic Clotrimazole (Lotrimin 1% Cream -) 1 applic TP BID [facility] Last Admin: 02/25/19 08:59 Dose: 1 applic Diltiazem HCl (Cardizem -) 30 mg PO TID [facility] Last Admin: 02/25/19 05:33 Dose: 30 mg Sodium Chloride (1/2 Normal Saline) 1,000 mls @ 75 mls/hr IV ASDIR [facility] Last Admin: 02/24/19 17:32 Dose: 75 mls/hr Piperacillin Sod/Tazobactam (Sod 2.25 gm/ Dextrose) 50 mls @ 100 mls/hr IVPB Q8H-IV [facility]; Protocol Last Admin: 02/25/19 08:59 Dose: 100 mls/hr Sodium Chloride (Normal Saline -) 250 mls @ 3,000 mls/hr IV PRN PRN PRN Reason: Hypotension during Dialysis Stop: 02/22/19 11:00 Sodium Chloride (Normal Saline -) 250 mls @ 3,000 mls/hr IV PRN PRN PRN Reason: Hypotension during Dialysis Stop: 02/22/19 16:14 Insulin Aspart (Novolog Vial Sliding Scale -) 1 vial SQ ACHS [facility]; Protocol Last Admin: 02/25/19 11:12 Dose: 2 units Lamotrigine (Lamictal -) 100 mg PO DAILY [facility] Last Admin: 02/25/19 08:59 Dose: 100 mg Pantoprazole Sodium (Protonix Iv) 40 mg IVPUSH BID [facility] Last Admin: 02/25/19 08:59 Dose: 40 mg ASSESSMENT AND PLAN: Altered Mental Status/Syncope resolved s/p Acute Respiratory Failure Acute on Chronic Renal Failure requiring HD Rhabdomyolysis improved Paroxysmal Atrial Fibrillation HTN Hypercholesterolemia Anemia/Thrombocytopenia Necrotic Decubitus Ulcers - HD per renal - IVF - off pressors, maintain MAP >65 - monitor urine output, creatinine - rate control - for debridement today - can resume anticoagulation post debridement - DVT/GI prophylaxis - can monitor on floor
--- NOTE | 2019-02-25 13:03 | PN ---
Physical Exam: SUBJECTIVE: Patient seen and examined in the morning. No acute events overnight , no events on monitoring specialist. No complaints of chest pain, shortness of breath, abdominal pain, nausea, vomiting, diarrhea. OBJECTIVE: Vital Signs Period Temp Pulse Resp BP Sys/Verdugo Pulse Ox Last 24 Hr 98 F-99.8 F 69-85 10-20 107-173/73-88 97-98 GENERAL: The patient is AOx1, responsive and cooperative HEAD: Normal with no signs of trauma. EYES: DANIELITO, EOMI NECK: Trachea midline LUNGS: Breath sounds equal, clear to auscultation bilaterally, no wheezes, no crackles HEART: RRR, no murmurs or rubs ABDOMEN: Soft, nontender, nondistended, normoactive bowel sounds, no guarding, no rebound, no masses. EXTREMITIES: 2+ pulses, warm, well-perfused, no edema. NEUROLOGICAL: Motor 3/5 on right, 5/5 on left. Sensations intact B/L SKIN: Warm, dry, normal turgor, eschar noted on rt hip, left knee Laboratory Results - last 24 hr 02/20/19 02/20/19 02/24/19 06:05 06:05 16:43 WBC RBC Hgb Hct MCV MCH MCHC RDW Plt Count MPV Absolute Neuts (auto) Neutrophils % Lymphocytes % Monocytes % Eosinophils % Basophils % Nucleated RBC % PTT (Actin FS) Sodium Potassium Chloride Carbon Dioxide Anion Gap BUN Creatinine Est GFR (CKD-EPI)AfAm Est GFR (CKD-EPI)NonAf POC Glucometer 169 Random Glucose Calcium Total Bilirubin AST ALT Alkaline Phosphatase Total Protein Total Protein (PEP) 4.7 L Albumin Albumin (PEP) 2.1 L Globulin 2.6 Albumin/Globulin Ratio 0.8 Beta Globulins 0.7 TY M-Tremaine Not observed c-ANCA <1:20 Proteinase 3 (PR3) <3.5 p-ANCA <1:20 Atypical p-ANCA <1:20 Myeloperoxidase Ab <9.0 Blood Type Antibody Screen 02/24/19 02/24/19 02/25/19 22:29 23:30 05:06 WBC RBC Hgb Hct MCV MCH MCHC RDW Plt Count MPV Absolute Neuts (auto) Neutrophils % Lymphocytes % Monocytes % Eosinophils % Basophils % Nucleated RBC % PTT (Actin FS) 30.6 Sodium Potassium Chloride Carbon Dioxide Anion Gap BUN Creatinine Est GFR (CKD-EPI)AfAm Est GFR (CKD-EPI)NonAf POC Glucometer 139 160 Random Glucose Calcium Total Bilirubin AST ALT Alkaline Phosphatase Total Protein Total Protein (PEP) Albumin Albumin (PEP) Globulin Albumin/Globulin Ratio Beta Globulins TY M-Tremaine c-ANCA Proteinase 3 (PR3) p-ANCA Atypical p-ANCA Myeloperoxidase Ab Blood Type Antibody Screen 02/25/19 02/25/19 02/25/19 06:00 06:00 06:00 WBC 7.8 RBC 3.50 L Hgb 11.1 L Hct 32.4 L MCV 92.7 MCH 31.8 MCHC 34.3 RDW 13.3 Plt Count 151 D MPV 10.0 Absolute Neuts (auto) 6.7 Neutrophils % 85.3 H Lymphocytes % 5.0 L Monocytes % 7.5 Eosinophils % 1.6 Basophils % 0.6 Nucleated RBC % 0 PTT (Actin FS) 30.4 Sodium 142 Potassium 3.7 Chloride 107 Carbon Dioxide 27 Anion Gap 8 BUN 62.7 H Creatinine 2.3 H Est GFR (CKD-EPI)AfAm 32.83 Est GFR (CKD-EPI)NonAf 28.33 POC Glucometer Random Glucose 142 H Calcium 8.1 L Total Bilirubin 1.5 H AST 26 ALT 34 Alkaline Phosphatase 84 Total Protein 5.2 L Total Protein (PEP) Albumin 1.7 L Albumin (PEP) Globulin Albumin/Globulin Ratio Beta Globulins TY M-Tremaine c-ANCA Proteinase 3 (PR3) p-ANCA Atypical p-ANCA Myeloperoxidase Ab Blood Type Antibody Screen 02/25/19 02/25/19 07:50 11:09 WBC RBC Hgb Hct MCV MCH MCHC RDW Plt Count MPV Absolute Neuts (auto) Neutrophils % Lymphocytes % Monocytes % Eosinophils % Basophils % Nucleated RBC % PTT (Actin FS) Sodium Potassium Chloride Carbon Dioxide Anion Gap BUN Creatinine Est GFR (CKD-EPI)AfAm Est GFR (CKD-EPI)NonAf POC Glucometer 167 Random Glucose Calcium Total Bilirubin AST ALT Alkaline Phosphatase Total Protein Total Protein (PEP) Albumin Albumin (PEP) Globulin Albumin/Globulin Ratio Beta Globulins TY M-Tremaine c-ANCA Proteinase 3 (PR3) p-ANCA Atypical p-ANCA Myeloperoxidase Ab Blood Type A NEGATIVE Antibody Screen Negative Active Medications Generic Name Dose Route Start Last Admin Trade Name Freq PRN Reason Stop Dose Admin Acetaminophen 1,000 mg 02/20/19 21:53 02/23/19 05:19 Ofirmev Injection - IVPB 1,000 mg Q6H PRN Administration FEVER Calcitriol 0.25 mcg 02/17/19 10:00 02/25/19 08:59 Rocaltrol - PO 0.25 mcg DAILY [facility] Administration Calcium Acetate 667 mg 02/17/19 08:00 02/25/19 07:51 Phoslo - PO 667 mg TIDCM [facility] Administration Chlorhexidine Gluconate 1 applic 02/17/19 22:00 02/24/19 21:46 Hibiclens For Decolonization - TP 1 applic HS [facility] Administration Clotrimazole 1 applic 02/17/19 10:00 02/25/19 08:59 Lotrimin 1% Cream - TP 1 applic BID [facility] Administration Diltiazem HCl 30 mg 02/17/19 14:00 02/25/19 05:33 Cardizem - PO 30 mg TID [facility] Administration Sodium Chloride 1,000 mls @ 75 mls/hr 02/18/19 13:40 02/24/19 17:32 1/2 Normal Saline IV 75 mls/hr ASDIR [facility] Administration Piperacillin Sod/Tazobactam 50 mls @ 100 mls/hr 02/21/19 02:00 02/25/19 08:59 Sod 2.25 gm/ Dextrose IVPB 100 mls/hr Q8H-IV [facility] Administration Protocol Sodium Chloride 250 mls @ 3,000 mls/hr 02/21/19 11:00 Normal Saline - IV 02/22/19 11:00 PRN PRN Hypotension during Dialysis Sodium Chloride 250 mls @ 3,000 mls/hr 02/21/19 16:14 Normal Saline - IV 02/22/19 16:14 PRN PRN Hypotension during Dialysis Insulin Aspart 1 vial 02/17/19 22:00 02/25/19 11:12 Novolog Vial Sliding Scale - SQ 2 units ACHS [facility] Administration Protocol Lamotrigine 100 mg 02/18/19 10:00 02/25/19 08:59 Lamictal - PO 100 mg DAILY [facility] Administration Pantoprazole Sodium 40 mg 02/19/19 11:30 02/25/19 08:59 Protonix Iv IVPUSH 40 mg BID [facility] Administration ASSESSMENT/PLAN: 68 M with PMH of DM, HTN, HLD, CKD, obesity, bipolar disorder, depression, and anxiety, who was brought to ED after being found down on the floor by brother with AMS. 1) AMS -Likely a toxic metabolic encephalopathy from uremia or electrolyte abnormalities or DKA. Has no recollection of what occurred before admission. -F/U MRI pending MRI Screening questionnaire. -CT head negative -F/U repeat CT Head negative for bleeds -Urine culture negative -1/2 NS @75 ml/hr -Insulin drip held -Sliding scale insulin -Endocrinology consulted, appreciate recs -Neurology consulted, appreciate recs 2) SMITA -Hemodialysis was partially completed yesterday due to blockage. -Strict I/O. Balance: -75 mL -Rhabdomyolysis resolved -Renal U/S unremarkable -Nephrology consulted, appreciate recs 3)Coffee ground emesis -Upper ENdoscopy tomorrow. 4) Pneumonia -CT Abdomen shows extensive bilateral lower lobe consolidation, right > left. -Zoysn 2.25 gram IV Q8H -ID consulted, appreciate recs -Legionella negative. 5)New onset Afib -Cardizem PO 30 mg TID PRN -Restart heparin drip, will hold in the morning for pre-op. -Cardiology consulted, appreciate recs -Echo shows normal EF -Normal sinus now 6) Wounds on lower chest, upper abdomen, hip -S/P Debridement. -Wet to dry dressing 7)History of Bipolar disorder -Holding home meds Dispo: ICU monitoring F: 1/2 NS @ 75 ml/hr E: Trend CMP. Replete as needed N: NPO after midnight Visit type - Emergency Visit Emergency Visit: Yes ED Registration Date: 02/16/19 Care time: The patient presented to the Emergency Department on the above date and was hospitalized for further evaluation of their emergent condition. - New Patient This patient is new to me today: No - Critical Care Critical Care patient: Yes Total Critical Care Time (in minutes): 30 Critical Care Statement: The care of this patient involved high complexity decision making to prevent further life threatening deterioration of the patient 's condition and/or to evaluate & treat vital organ system(s) failure or risk of failure. ATTENDING PHYSICIAN STATEMENT I saw and evaluated the patient. I reviewed the resident's note and discussed the case with the resident. I agree with the resident's findings and plan as documented. SUBJECTIVE: OBJECTIVE: ASSESSMENT AND PLAN:
[2019-02-25] MEDS: SODIUM CHLORIDE 0.45% 1,000 ML IV SCH (13:56)
[2019-02-25] MEDS ORDERED: LIDOCAINE HCL 1%, 10 MG/ML (20ML VIAL) ONE (14:02)
[2019-02-25] MEDS ORDERED: MIDAZOLAM HCL 2 MG/2 ML SINGLE DOSE VIAL ONE (14:27)
[2019-02-25] MEDS ORDERED: SUCCINYLCHOLINE CHLORIDE 200 MG/10 ML SYRINGE ONE (14:27)
[2019-02-25] MEDS ORDERED: PROPOFOL 20 ML ONE ×2 (14:27→14:40)
[2019-02-25] MEDS ORDERED: LIDOCAINE HCL 1%, 10 MG/ML (20ML VIAL) INF ONE (14:43)
--- NOTE | 2019-02-25 15:00 | OP ---
Operative Note - Note: Operative Date: 02/25/19 Pre-Operative Diagnosis: left knee, right hip necrotic ulcer Operation: Excisional debridement left knee and right hip - skin, subcutaneous tissue Findings: necrotic eschar sent to path Post-Operative Diagnosis: Same as Pre-op Surgeon: Vance Abreu Anesthesia: Fractional Estimated Blood Loss (mls): 20 Operative Report Dictated: Yes
--- NOTE | 2019-02-25 15:52 | PN.GI ---
GI Progress Note Subjective: No acute events Underwent debridement of hip and knee wound No overt bleeding - Objective Vital Signs: Vital Signs Temperature 98.6 F 02/25/19 06:00 Pulse Rate 87 02/25/19 14:00 Respiratory Rate 16 02/25/19 14:00 Blood Pressure 151/87 02/25/19 14:00 O2 Sat by Pulse Oximetry (%) 98 02/25/19 10:00 Constitutional: Calm Eyes: No: Sclera Icterus Cardiovascular: Yes: Regular Rate and Rhythm Respiratory: Yes: Diminished (at bases bilaterally) Gastrointestinal Inspection: Yes: Scars ...Auscultate: Yes: Normoactive Bowel Sounds ...Palpate: Yes: Soft. No: Hepatomegaly, Splenomegaly, Tenderness ...Rectal Exam: Yes: Other (No external lesions, no masses, brown soft stool) Neurological: Yes: Alert, Confusion Labs: CBC, BMP 02/25/19 06:00 02/25/19 06:00 INR, PTT INR 1.08 (0.83-1.09) 02/24/19 09:00 Hepatic Panel Total Bilirubin 1.5 mg/dL (0.2-1) H 02/25/19 06:00 AST 26 U/L (15-37) 02/25/19 06:00 ALT 34 U/L (13-61) 02/25/19 06:00 Alkaline Phosphatase 84 U/L (45-117) 02/25/19 06:00 Albumin 1.7 g/dl (3.4-5.0) L 02/25/19 06:00 Problem List - Problems (1) Coffee ground emesis Assessment/Plan: No vomiting of coffee ground emesis Noted decrease in h/H. Likely multifactorial as he was thrombocytopenia as well. Do not think the coffee ground emesis episode was a primary bleeding event. I suspect that this was secondary to ileus / gastroparesis secondary to his systemic disease process / ileus / gastroparesis. To exclude any high risk upper GI pathology prior to initiating continued anticoagulation I discussed upper endoscopy with smiley Sanches and his brother Figueroa via telephone. Discussed potential risks of the procedure like but not limited to bleeding, perforation requiring surgery to repair, infection, sedation medication effects all of which could be potentially life threatening. Both Mr. Sanches (he is confused and cannot give indformed consent) and his brother have agreed to the procedure. NPO after midnight Monitor H/H and for signs of active GI bleeding Code(s): K92.0 - HEMATEMESIS
[2019-02-25] MEDS: ACETAMINOPHEN 1000 MG/100 ML VIAL (NON FORMULARY) IVPB PRN ×2 (16:04→22:15)
[2019-02-25] MEDS: COLLAGENASE CLOSTRIDIUM HIST. 30 GRAMS TUBE TP SCH (16:06)
[2019-02-25] MEDS ORDERED: SODIUM CHLORIDE 0.45% 1,000 ML IV SCH (16:55)
--- NOTE | 2019-02-25 16:55 | PN ---
Teaching Attending Note Name of Resident: Eb Harding ATTENDING PHYSICIAN STATEMENT I saw and evaluated the patient. I reviewed the resident's note and discussed the case with the resident. I agree with the resident's findings and plan as documented. SUBJECTIVE: Feels well, no complaints s/p extubation 02/23. Slow to respond to questions. No further coffee ground emesis. OBJECTIVE: Afebrile, Hemodynamically stable. Extubated 02/23/Off Propofol and Levophed. AAO x 2 Last Vital Signs Temp Pulse Resp BP Pulse Ox 100.1 F H 87 16 151/87 98 02/25/19 15:00 02/25/19 15:00 02/25/19 15:00 02/25/19 15:00 02/25/19 10:00 Heart - S1, S2, RRR Lungs - good air entry bilaterally. Few basal crackles. RIJ catheter. Abdomen - Soft, non-tender. R sided abdominal wall rug-burn like wound, without surrounding cellulitis. Extremities - mild edema. rug burn wound to inner aspect L knee and R hip with eschar, no surrounding erythema. Neuro - WILLARD. Moving extremities, Decreased Power on R - RUE 3/5, RLE 4/5 Laboratory Results - last 24 hr 02/20/19 02/20/19 02/24/19 06:05 06:05 22:29 WBC RBC Hgb Hct MCV MCH MCHC RDW Plt Count MPV Absolute Neuts (auto) Neutrophils % Lymphocytes % Monocytes % Eosinophils % Basophils % Nucleated RBC % PTT (Actin FS) Sodium Potassium Chloride Carbon Dioxide Anion Gap BUN Creatinine Est GFR (CKD-EPI)AfAm Est GFR (CKD-EPI)NonAf POC Glucometer 139 Random Glucose Calcium Total Bilirubin AST ALT Alkaline Phosphatase Total Protein Total Protein (PEP) 4.7 L Albumin Albumin (PEP) 2.1 L Globulin 2.6 Albumin/Globulin Ratio 0.8 Beta Globulins 0.7 TY M-Tremaine Not observed c-ANCA <1:20 Proteinase 3 (PR3) <3.5 p-ANCA <1:20 Atypical p-ANCA <1:20 Myeloperoxidase Ab <9.0 Blood Type Antibody Screen 02/24/19 02/25/19 02/25/19 23:30 05:06 06:00 WBC 7.8 RBC 3.50 L Hgb 11.1 L Hct 32.4 L MCV 92.7 MCH 31.8 MCHC 34.3 RDW 13.3 Plt Count 151 D MPV 10.0 Absolute Neuts (auto) 6.7 Neutrophils % 85.3 H Lymphocytes % 5.0 L Monocytes % 7.5 Eosinophils % 1.6 Basophils % 0.6 Nucleated RBC % 0 PTT (Actin FS) 30.6 Sodium Potassium Chloride Carbon Dioxide Anion Gap BUN Creatinine Est GFR (CKD-EPI)AfAm Est GFR (CKD-EPI)NonAf POC Glucometer 160 Random Glucose Calcium Total Bilirubin AST ALT Alkaline Phosphatase Total Protein Total Protein (PEP) Albumin Albumin (PEP) Globulin Albumin/Globulin Ratio Beta Globulins TY M-Tremaine c-ANCA Proteinase 3 (PR3) p-ANCA Atypical p-ANCA Myeloperoxidase Ab Blood Type Antibody Screen 02/25/19 02/25/19 02/25/19 06:00 06:00 07:50 WBC RBC Hgb Hct MCV MCH MCHC RDW Plt Count MPV Absolute Neuts (auto) Neutrophils % Lymphocytes % Monocytes % Eosinophils % Basophils % Nucleated RBC % PTT (Actin FS) 30.4 Sodium 142 Potassium 3.7 Chloride 107 Carbon Dioxide 27 Anion Gap 8 BUN 62.7 H Creatinine 2.3 H Est GFR (CKD-EPI)AfAm 32.83 Est GFR (CKD-EPI)NonAf 28.33 POC Glucometer Random Glucose 142 H Calcium 8.1 L Total Bilirubin 1.5 H AST 26 ALT 34 Alkaline Phosphatase 84 Total Protein 5.2 L Total Protein (PEP) Albumin 1.7 L Albumin (PEP) Globulin Albumin/Globulin Ratio Beta Globulins TY M-Tremanie c-ANCA Proteinase 3 (PR3) p-ANCA Atypical p-ANCA Myeloperoxidase Ab Blood Type A NEGATIVE Antibody Screen Negative 02/25/19 02/25/19 11:09 16:03 WBC RBC Hgb Hct MCV MCH MCHC RDW Plt Count MPV Absolute Neuts (auto) Neutrophils % Lymphocytes % Monocytes % Eosinophils % Basophils % Nucleated RBC % PTT (Actin FS) Sodium Potassium Chloride Carbon Dioxide Anion Gap BUN Creatinine Est GFR (CKD-EPI)AfAm Est GFR (CKD-EPI)NonAf POC Glucometer 167 147 Random Glucose Calcium Total Bilirubin AST ALT Alkaline Phosphatase Total Protein Total Protein (PEP) Albumin Albumin (PEP) Globulin Albumin/Globulin Ratio Beta Globulins TY M-Tremaine c-ANCA Proteinase 3 (PR3) p-ANCA Atypical p-ANCA Myeloperoxidase Ab Blood Type Antibody Screen Current Medications Generic Name Dose Route Start Last Admin Trade Name Freq PRN Reason Stop Dose Admin Acetaminophen 1,000 mg 02/20/19 21:53 02/25/19 16:04 Ofirmev Injection - IVPB 1,000 mg Q6H PRN Administration FEVER Calcitriol 0.25 mcg 02/17/19 10:00 02/25/19 08:59 Rocaltrol - PO 0.25 mcg DAILY [facility] Administration Calcium Acetate 667 mg 02/17/19 08:00 02/25/19 13:09 Phoslo - PO 667 mg TIDCM [facility] Administration Chlorhexidine Gluconate 1 applic 02/17/19 22:00 02/24/19 21:46 Hibiclens For Decolonization - TP 1 applic HS [facility] Administration Clotrimazole 1 applic 02/17/19 10:00 02/25/19 08:59 Lotrimin 1% Cream - TP 1 applic BID [facility] Administration Collagenase 1 applic 02/25/19 15:15 02/25/19 16:06 Santyl - TP Not Given DAILY [facility] Protocol Diltiazem HCl 30 mg 02/17/19 14:00 02/25/19 13:09 Cardizem - PO 30 mg TID [facility] Administration Sodium Chloride 1,000 mls @ 75 mls/hr 02/18/19 13:40 02/25/19 13:56 1/2 Normal Saline IV 75 mls/hr ASDIR [facility] Administration Piperacillin Sod/Tazobactam 50 mls @ 100 mls/hr 02/21/19 02:00 02/25/19 08:59 Sod 2.25 gm/ Dextrose IVPB 100 mls/hr Q8H-IV [facility] Administration Protocol Sodium Chloride 250 mls @ 3,000 mls/hr 02/21/19 11:00 Normal Saline - IV 02/22/19 11:00 PRN PRN Hypotension during Dialysis Sodium Chloride 250 mls @ 3,000 mls/hr 02/21/19 16:14 Normal Saline - IV 02/22/19 16:14 PRN PRN Hypotension during Dialysis Insulin Aspart 1 vial 02/17/19 22:00 02/25/19 16:06 Novolog Vial Sliding Scale - SQ Not Given ACHS [facility] Protocol Lamotrigine 100 mg 02/18/19 10:00 02/25/19 08:59 Lamictal - PO 100 mg DAILY [facility] Administration Pantoprazole Sodium 40 mg 02/19/19 11:30 02/25/19 08:59 Protonix Iv IVPUSH 40 mg BID [facility] Administration Home Medications Medication Instructions Recorded Allopurinol [Zyloprim -] 200 mg DAILY 02/17/19 Amlodipine Besylate 10 mg PO DAILY 02/17/19 Diazepam [Valium] 10 mg PO TID 02/17/19 Insulin Aspart [Novolog] 2 units TID 02/17/19 Insulin Glargine,Hum.rec.anlog 95 unit HS 02/17/19 [Toujeo Solostar] Lamotrigine 100 mg DAILY 02/17/19 Losartan/Hydrochlorothiazide 1 tablet DAILY 02/17/19 [Losartan-Hctz 100-12.5 mg Tab] Quetiapine Fumarate [Seroquel -] 200 mg PO HS 02/17/19 ASSESSMENT/PLAN: 68 year old male with history of DM 2, HTN, HLD, CKD, Obesity, Bipolar Disorder , Depression, Anxiety, lives alone, found on floor of his house by his brother, noted to have SMITA, DKA, Multiple electrolyte abnormalities, AMS. 1. Acute Hypercapneic Respiratory Failure and Septic Shock, secondary to bilateral Pneumonia ?Aspiration. Intubated, Extubated 02/23/19 CT C/A/P - bilateral consolidation. Leukocytosis resolved. Continue IV Zosyn to cover for possible aspiration. ID following. Sputum Cx - normal yulissa. Urine legionella Ag negative. 2. Syncope/Fall with LOC and Acute Encephalopathy (secondary to Uremia vs Hypernatremia vs Acidosis) Initially recovered mental status after adequate hydration and electrolyte replacement, but then became unresponsive in respiratory distress requiring intubation. Initial CT Head negative for acute findings, repeat CT shows no interval change. No telemonitoring events. Echo - normal EF, small pericardial effusion, no signs of tamponade. Awaiting MRI recommended by Neurology, especially given lateralizing neurological signs of r sided weakness. 3. Upper GI Bleed. Coffee-ground material noticed in NG tube, now cleared. IV PPI BID. H/H monitoring. Scheduld for EGD tomorrow by GI. 4. Atrial Fibrillation with RVR - resolved. On oral Cardizem. Heparin drip to resume after debridement of ulcers 5. 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 Renal US - no obstruction. HD catheter blocked during HD 02/21 - s/p RIJ replacement of HD catheter. 5. Hypernatremia sec to dehydration - improved with HD 6. Hypokalemia/Hypocalcemia - repleted/resolved. Started on Calcitriol and Calcium supplementation. 7. DKA - resolved. Insulin drip discontinued. Endocrine following - once oral intake picks up may need to add Levemir 10 units. 8. Bipolar Disorder - normally on Seroquel, Lamictal, Diazepam. 9. HTN - Norvasc, Losartan, HCTZ held due to shock. BP acceptable currently on Cardizem only. 10. Wounds R abdominal wall, R Hip and L knee with eschar ?sec to fall/carpet burn, multiple decubitus ulcers buttocks and R hip - no surrounding erythema/ infection. For wound debridement today in [place]. DVT Px - Heparin drip to resume after wound debridement. GI Px - PPI IV
--- NOTE | 2019-02-25 17:03 | PN ---
Progress Note, Physician Chief Complaint: Pt seen and examined at bedside. He is more awake today. He denies shortness of breath. - Current Medication List Current Medications: Active Medications Acetaminophen (Ofirmev Injection -) 1,000 mg IVPB Q6H PRN PRN Reason: FEVER Last Admin: 02/25/19 16:04 Dose: 1,000 mg Calcitriol (Rocaltrol -) 0.25 mcg PO DAILY [facility] Last Admin: 02/25/19 08:59 Dose: 0.25 mcg Calcium Acetate (Phoslo -) 667 mg PO TIDCM [facility] Last Admin: 02/25/19 13:09 Dose: 667 mg Chlorhexidine Gluconate (Hibiclens For Decolonization -) 1 applic TP HS [facility] Last Admin: 02/24/19 21:46 Dose: 1 applic Clotrimazole (Lotrimin 1% Cream -) 1 applic TP BID [facility] Last Admin: 02/25/19 08:59 Dose: 1 applic Collagenase (Santyl -) 1 applic TP DAILY [facility]; Protocol Last Admin: 02/25/19 16:06 Dose: Not Given Diltiazem HCl (Cardizem -) 30 mg PO TID [facility] Last Admin: 02/25/19 13:09 Dose: 30 mg Piperacillin Sod/Tazobactam (Sod 2.25 gm/ Dextrose) 50 mls @ 100 mls/hr IVPB Q8H-IV [facility]; Protocol Last Admin: 02/25/19 08:59 Dose: 100 mls/hr Sodium Chloride (Normal Saline -) 250 mls @ 3,000 mls/hr IV PRN PRN PRN Reason: Hypotension during Dialysis Stop: 02/22/19 11:00 Sodium Chloride (Normal Saline -) 250 mls @ 3,000 mls/hr IV PRN PRN PRN Reason: Hypotension during Dialysis Stop: 02/22/19 16:14 Sodium Chloride (1/2 Normal Saline) 1,000 mls @ 83 mls/hr IV ASDIR [facility] Insulin Aspart (Novolog Vial Sliding Scale -) 1 vial SQ ACHS [facility]; Protocol Last Admin: 02/25/19 16:06 Dose: Not Given Lamotrigine (Lamictal -) 100 mg PO DAILY [facility] Last Admin: 02/25/19 08:59 Dose: 100 mg Pantoprazole Sodium (Protonix Iv) 40 mg IVPUSH BID [facility] Last Admin: 02/25/19 08:59 Dose: 40 mg - Objective Vital Signs: Vital Signs Temperature 100.1 F H 02/25/19 15:00 Pulse Rate 87 02/25/19 15:00 Respiratory Rate 16 02/25/19 15:00 Blood Pressure 151/87 02/25/19 15:00 O2 Sat by Pulse Oximetry (%) 98 02/25/19 10:00 Constitutional: Yes: Calm Eyes: Yes: Conjunctiva Clear HENT: Yes: Atraumatic Neck: Yes: Supple Cardiovascular: Yes: S1, S2 Respiratory: Yes: CTA Bilaterally, On Nasal O2 Gastrointestinal: Yes: Normal Bowel Sounds, Soft Genitourinary: Yes: Chou Present Musculoskeletal: Yes: Muscle Weakness Edema: No Neurological: Yes: Oriented Psychiatric: Yes: Oriented Labs: CBC, BMP 02/25/19 06:00 02/25/19 06:00 INR, PTT INR 1.08 (0.83-1.09) 02/24/19 09:00 Assessment/Plan Current Medications Generic Name Dose Route Start Last Admin Trade Name Rufina PRN Reason Stop Dose Admin Acetaminophen 1,000 mg 02/20/19 21:53 02/25/19 16:04 Ofirmev Injection - IVPB 1,000 mg Q6H PRN Administration FEVER Calcitriol 0.25 mcg 02/17/19 10:00 02/25/19 08:59 Rocaltrol - PO 0.25 mcg DAILY [facility] Administration Calcium Acetate 667 mg 02/17/19 08:00 02/25/19 13:09 Phoslo - PO 667 mg TIDCM [facility] Administration Chlorhexidine Gluconate 1 applic 02/17/19 22:00 02/24/19 21:46 Hibiclens For Decolonization - TP 1 applic HS [facility] Administration Clotrimazole 1 applic 02/17/19 10:00 02/25/19 08:59 Lotrimin 1% Cream - TP 1 applic BID [facility] Administration Collagenase 1 applic 02/25/19 15:15 02/25/19 16:06 Santyl - TP Not Given DAILY [facility] Protocol Diltiazem HCl 30 mg 02/17/19 14:00 02/25/19 13:09 Cardizem - PO 30 mg TID [facility] Administration Piperacillin Sod/Tazobactam 50 mls @ 100 mls/hr 02/21/19 02:00 02/25/19 08:59 Sod 2.25 gm/ Dextrose IVPB 100 mls/hr Q8H-IV [facility] Administration Protocol Sodium Chloride 250 mls @ 3,000 mls/hr 02/21/19 11:00 Normal Saline - IV 02/22/19 11:00 PRN PRN Hypotension during Dialysis Sodium Chloride 250 mls @ 3,000 mls/hr 02/21/19 16:14 Normal Saline - IV 02/22/19 16:14 PRN PRN Hypotension during Dialysis Sodium Chloride 1,000 mls @ 83 mls/hr 02/25/19 16:55 1/2 Normal Saline IV ASDIR [facility] Insulin Aspart 1 vial 02/17/19 22:00 02/25/19 16:06 Novolog Vial Sliding Scale - SQ Not Given ACHS [facility] Protocol Lamotrigine 100 mg 02/18/19 10:00 02/25/19 08:59 Lamictal - PO 100 mg DAILY [facility] Administration Pantoprazole Sodium 40 mg 02/19/19 11:30 02/25/19 08:59 Protonix Iv IVPUSH 40 mg BID [facility] Administration Laboratory Tests 02/20/19 06:05 [facility] Screen Negative c-ANCA <1:20 Proteinase 3 (PR3) <3.5 p-ANCA <1:20 Atypical p-ANCA <1:20 Myeloperoxidase Ab <9.0 Glomerular Base Memb Ab 3 Impression 1. SMITA 2. rhabdo 3. dka 4. altered mental status 5. hyperkalemia 6. resp failure Plan - renal function improving - hold off HD today - repeat labs in am - pt showing signs of renal recovery - serologies negative so far
[2019-02-25] MEDS ORDERED: PT OWN MED DRAWER 7, Y5N ONE (21:12)
--- NOTE | 2019-02-26 00:15 | PN ---
Progress Note, Physician Chief Complaint: awake responsive sister at bedside - Current Medication List Current Medications: Active Medications Acetaminophen (Ofirmev Injection -) 1,000 mg IVPB Q6H PRN PRN Reason: FEVER Last Admin: 02/25/19 16:04 Dose: 1,000 mg Calcitriol (Rocaltrol -) 0.25 mcg PO DAILY [facility] Last Admin: 02/25/19 08:59 Dose: 0.25 mcg Calcium Acetate (Phoslo -) 667 mg PO TIDCM [facility] Last Admin: 02/25/19 17:11 Dose: 667 mg Chlorhexidine Gluconate (Hibiclens For Decolonization -) 1 applic TP HS [facility] Last Admin: 02/24/19 21:46 Dose: 1 applic Clotrimazole (Lotrimin 1% Cream -) 1 applic TP BID [facility] Last Admin: 02/25/19 08:59 Dose: 1 applic Collagenase (Santyl -) 1 applic TP DAILY [facility]; Protocol Last Admin: 02/25/19 16:06 Dose: Not Given Diltiazem HCl (Cardizem -) 30 mg PO TID [facility] Last Admin: 02/25/19 13:09 Dose: 30 mg Piperacillin Sod/Tazobactam (Sod 2.25 gm/ Dextrose) 50 mls @ 100 mls/hr IVPB Q8H-IV [facility]; Protocol Last Admin: 02/25/19 17:11 Dose: 100 mls/hr Sodium Chloride (Normal Saline -) 250 mls @ 3,000 mls/hr IV PRN PRN PRN Reason: Hypotension during Dialysis Stop: 02/22/19 16:14 Sodium Chloride (1/2 Normal Saline) 1,000 mls @ 83 mls/hr IV ASDIR [facility] Last Admin: 02/25/19 17:11 Dose: 83 mls/hr Insulin Aspart (Novolog Vial Sliding Scale -) 1 vial SQ ACHS [facility]; Protocol Last Admin: 02/25/19 16:06 Dose: Not Given Lamotrigine (Lamictal -) 100 mg PO DAILY [facility] Last Admin: 02/25/19 08:59 Dose: 100 mg Pantoprazole Sodium (Protonix Iv) 40 mg IVPUSH BID [facility] Last Admin: 02/25/19 08:59 Dose: 40 mg - Objective Vital Signs: Vital Signs Temperature 100.1 F H 02/25/19 15:00 Pulse Rate 87 02/25/19 15:00 Respiratory Rate 16 02/25/19 15:00 Blood Pressure 151/87 02/25/19 15:00 O2 Sat by Pulse Oximetry (%) 98 02/25/19 10:00 Constitutional: Yes: Calm Eyes: Yes: EOM Intact HENT: Yes: Normocephalic Neck: Yes: Trachea Midline Cardiovascular: Yes: Regular Rate and Rhythm Respiratory: Yes: CTA Bilaterally Gastrointestinal: Yes: Normal Bowel Sounds ...Rectal Exam: Yes: Deferred Genitourinary: Yes: Other Musculoskeletal: Yes: Joint Swelling, Muscle Pain, Muscle Weakness Extremities: Yes: Cool, Delayed Capillary Refill, Pallor Edema: Yes Peripheral Pulses WNL: Yes Integumentary: Yes: Pressure Ulcer, Skin Tear, Onychomycosis, Venous Stasis Changes Wound/Incision: Yes: Dressing Dry and Intact Neurological: Yes: Alert, Confusion Labs: CBC, BMP 02/25/19 06:00 02/25/19 06:00 INR, PTT INR 1.08 (0.83-1.09) 02/24/19 09:00 Problem List - Problems (1) DKA (diabetic ketoacidoses) Problems reviewed: Yes Code(s): E11.10 - TYPE 2 DIABETES MELLITUS WITH KETOACIDOSIS WITHOUT COMA Qualifiers: Diabetes mellitus type: type 2 (2) HTN (hypertension) Problems reviewed: Yes Code(s): I10 - ESSENTIAL (PRIMARY) HYPERTENSION (3) Hypercholesterolemia Code(s): E78.00 - PURE HYPERCHOLESTEROLEMIA, UNSPECIFIED (4) Leukocytosis Code(s): D72.829 - ELEVATED WHITE BLOOD CELL COUNT, UNSPECIFIED (5) Renal failure Code(s): N19 - UNSPECIFIED KIDNEY FAILURE (6) Rhabdomyolysis Code(s): M62.82 - RHABDOMYOLYSIS (7) Uremia Code(s): N19 - UNSPECIFIED KIDNEY FAILURE Assessment/Plan Current Active Problems Bipolar disorder (Acute) Coffee ground emesis (Acute) DKA (diabetic ketoacidoses) (Acute) HTN (hypertension) (Acute) Hypercholesterolemia (Acute) Leukocytosis (Acute) Paroxysmal atrial fibrillation with rapid ventricular response (Acute) Renal failure (Acute) Rhabdomyolysis (Acute) Stroke (Acute) Unstageable pressure injury of skin and tissue (Acute) Uremia (Acute) Abnormal Lab Results 02/25/19 02/25/19 06:00 06:00 RBC 3.50 L Hgb 11.1 L Hct 32.4 L Neutrophils % 85.3 H Lymphocytes % 5.0 L BUN 62.7 H Creatinine 2.3 H Random Glucose 142 H Calcium 8.1 L Total Bilirubin 1.5 H Total Protein 5.2 L Albumin 1.7 L Laboratory Results - last 24 hr 02/25/19 02/25/19 02/25/19 05:06 06:00 06:00 WBC 7.8 RBC 3.50 L Hgb 11.1 L Hct 32.4 L MCV 92.7 MCH 31.8 MCHC 34.3 RDW 13.3 Plt Count 151 D MPV 10.0 Absolute Neuts (auto) 6.7 Neutrophils % 85.3 H Lymphocytes % 5.0 L Monocytes % 7.5 Eosinophils % 1.6 Basophils % 0.6 Nucleated RBC % 0 PTT (Actin FS) Sodium 142 Potassium 3.7 Chloride 107 Carbon Dioxide 27 Anion Gap 8 BUN 62.7 H Creatinine 2.3 H Est GFR (CKD-EPI)AfAm 32.83 Est GFR (CKD-EPI)NonAf 28.33 POC Glucometer 160 Random Glucose 142 H Calcium 8.1 L Total Bilirubin 1.5 H AST 26 ALT 34 Alkaline Phosphatase 84 Total Protein 5.2 L Albumin 1.7 L Blood Type Antibody Screen 02/25/19 02/25/19 02/25/19 06:00 07:50 11:09 WBC RBC Hgb Hct MCV MCH MCHC RDW Plt Count MPV Absolute Neuts (auto) Neutrophils % Lymphocytes % Monocytes % Eosinophils % Basophils % Nucleated RBC % PTT (Actin FS) 30.4 Sodium Potassium Chloride Carbon Dioxide Anion Gap BUN Creatinine Est GFR (CKD-EPI)AfAm Est GFR (CKD-EPI)NonAf POC Glucometer 167 Random Glucose Calcium Total Bilirubin AST ALT Alkaline Phosphatase Total Protein Albumin Blood Type A NEGATIVE Antibody Screen Negative 02/25/19 02/26/19 16:03 00:03 WBC RBC Hgb Hct MCV MCH MCHC RDW Plt Count MPV Absolute Neuts (auto) Neutrophils % Lymphocytes % Monocytes % Eosinophils % Basophils % Nucleated RBC % PTT (Actin FS) Sodium Potassium Chloride Carbon Dioxide Anion Gap BUN Creatinine Est GFR (CKD-EPI)AfAm Est GFR (CKD-EPI)NonAf POC Glucometer 147 152 Random Glucose Calcium Total Bilirubin AST ALT Alkaline Phosphatase Total Protein Albumin Blood Type Antibody Screen plan: supportive care iv antibiotics bgm qid novolog scale
[2019-02-26] MEDS: CLOTRIMAZOLE 1% CREAM 15 GM TUBE TP SCH ×3 (00:38→23:05)
[2019-02-26] MEDS: PANTOPRAZOLE SODIUM 40 MG VIAL IVPUSH SCH ×3 (00:38→21:52)
[2019-02-26] MEDS: dilTIAZem HCL 30 MG TABLET (FP) PO SCH ×5 (00:38→21:52)
[2019-02-26] MEDS: CHLORHEXIDINE GLUCONATE 4% CLEANSER FOR DECOLONIZATION TP SCH (00:38)
[2019-02-26] MEDS: INSULIN SLIDING SCALE (NOVOLOG) 1 VIAL SQ SCH ×4 (00:38→16:38)
[2019-02-26] MEDS: PIPERACILLIN/TAZOB 2.25 GM 2.25 GM in DEXTROSE 5%-WATER - 50 ML IVPB SCH ×3 (01:30→17:49)
[2019-02-26] MEDS ORDERED: DEXTROSE 5%-WATER - 50 ML IVPB ONE ×3 (01:31→17:42)
[2019-02-26] MEDS ORDERED: PIPERACILLIN/TAZOBACTAM 2.25 GM VIAL IVPB ONE ×3 (01:31→17:42)
[2019-02-26] MEDS ORDERED: ACETAMINOPHEN 1000 MG/100 ML VIAL (NON FORMULARY) IVPB PRN (05:37)
[2019-02-26] MEDS ORDERED: HEPARIN NA (PORCINE) 5,000 UNITS/ML 1ML VIAL IVPUSH PRN ×2 (05:37)
[2019-02-26] MEDS ORDERED: MIDAZOLAM HCL 2 MG/2 ML SINGLE DOSE VIAL IVPUSH ONE (05:37)
[2019-02-26] MEDS ORDERED: SODIUM CHLORIDE 250 ML IV PRN (05:37)
[2019-02-26] MEDS: CALCIUM ACETATE 667 MG CAPSULE (FP) PO SCH ×3 (08:20→16:38)
--- NOTE | 2019-02-26 08:54 | PN ---
Progress Note (short form) - Note Progress Note: SURGERY POD #1 s/p Excisional debridement left knee and right hip - skin, subcutaneous tissue Alert. No acute events per RN notes. Doing well. Last Vital Signs Temp Pulse Resp BP Pulse Ox 98.8 F 62 18 140/82 99 02/26/19 04:48 02/26/19 04:48 02/26/19 04:48 02/26/19 04:48 02/25/19 21:00 Gen: nad Left knee: dressing removed. wound bed clean. Right hip: dressing removed. wound bed clean. : saez to gravity LE: scds, bilat. soft. no edema/swelling Problem List - Problems (1) Unstageable pressure injury of skin and tissue Assessment/Plan: POD #1 s/p Excisional debridement left knee and right hip - skin, subcutaneous tissue Dressing changed on rounds. Daily dressing changes wet to dry ordered. Cont medical management No further surgical intervention planned. Re-consult surgery prn. On behalf of Dr. Abreu, thank you for the opportunity to participate in your patient's care. Code(s): L89.95 - PRESSURE ULCER OF UNSPECIFIED SITE, UNSTAGEABLE (2) Rhabdomyolysis Code(s): M62.82 - RHABDOMYOLYSIS (3) Renal failure Code(s): N19 - UNSPECIFIED KIDNEY FAILURE (4) HTN (hypertension) Code(s): I10 - ESSENTIAL (PRIMARY) HYPERTENSION (5) Leukocytosis Code(s): D72.829 - ELEVATED WHITE BLOOD CELL COUNT, UNSPECIFIED
[2019-02-26 09:08] LABS: BASO % 0.7 % (0-2.0); EOS % 2.2 % (0-4.5); HEMATOCRIT 33.1 % (35.4-49); HEMOGLOBIN 11.2 GM/dL (11.7-16.9); LYMPH % 5.9 % (8-40); MCH 31.4 pg (25.7-33.7); MCHC 33.8 g/dl (32.0-35.9); MEAN CELL VOLUME 92.6 fl (80-96); MEAN PLT VOLUME 9.8 fl (7.5-11.1); MONO % 8.4 % (3.8-10.2); NEUT % 82.8 % (42.8-82.8); PLATELET COUNT 191 K/MM3 (134-434); RBC 3.57 M/mm3 (4.00-5.60); RDW 13.5 % (11.9-15.9); WHITE BLOOD COUNT 7.3 K/mm3 (4.0-10.0)
[2019-02-26 09:29] LABS: ALBUMIN 1.8 g/dl (3.4-5.0); BILIRUBIN,TOTAL 1.1 mg/dL (0.2-1); BLOOD UREA NITROGEN 58.4 mg/dL (7-18); CALCIUM 8.6 mg/dL (8.5-10.1); CREATININE 2.1 mg/dL (0.55-1.3); PHOSPHOROUS 3.9 mg/dL (2.5-4.9); POTASSIUM 3.9 mmol/L (3.5-5.1); TOT PROT 5.3 g/dl (6.4-8.2)
[2019-02-26] MEDS ORDERED: PT OWN MED DRAWER 7, Y5N ONE ×2 (10:12→20:44)
[2019-02-26] MEDS: CALCITRIOL 0.25 MCG CAPSULE (FP) PO SCH (10:18)
[2019-02-26] MEDS: lamoTRIgine 100 MG TABLET (FP) PO SCH (10:21)
[2019-02-26] MEDS: COLLAGENASE CLOSTRIDIUM HIST. 30 GRAMS TUBE TP SCH (10:24)
--- NOTE | 2019-02-26 10:31 | PN ---
Progress Note, Physician History of Present Illness: POD #1 s/p Excisional debridement left knee and right hip - skin, subcutaneous tissue. No further hematemesis. Arousable, SMITA improving off HD, making urine now. - Current Medication List Current Medications: Active Medications Acetaminophen (Ofirmev Injection -) 1,000 mg IVPB Q6H PRN PRN Reason: FEVER Calcitriol (Rocaltrol -) 0.25 mcg PO DAILY [facility] Last Admin: 02/26/19 10:18 Dose: 0.25 mcg Calcium Acetate (Phoslo -) 667 mg PO TIDCM [facility] Last Admin: 02/26/19 08:20 Dose: Not Given Clotrimazole (Lotrimin 1% Cream -) 1 applic TP BID [facility] Last Admin: 02/26/19 10:24 Dose: Not Given Collagenase (Santyl -) 1 applic TP DAILY [facility]; Protocol Last Admin: 02/26/19 10:24 Dose: Not Given Diltiazem HCl (Cardizem -) 30 mg PO TID [facility] Last Admin: 02/26/19 07:43 Dose: Not Given Sodium Chloride (1/2 Normal Saline) 1,000 mls @ 83 mls/hr IV ASDIR [facility] Last Admin: 02/25/19 17:11 Dose: 83 mls/hr Sodium Chloride (Normal Saline -) 250 mls @ 3,000 mls/hr IV PRN PRN PRN Reason: Hypotension during Dialysis Piperacillin Sod/Tazobactam (Sod 2.25 gm/ Dextrose) 50 mls @ 100 mls/hr IVPB Q8H-IV [facility]; Protocol Last Admin: 02/26/19 10:17 Dose: 100 mls/hr Insulin Aspart (Novolog Vial Sliding Scale -) 1 vial SQ ACHS [facility]; Protocol Last Admin: 02/26/19 07:44 Dose: Not Given Lamotrigine (Lamictal -) 100 mg PO DAILY [facility] Last Admin: 02/26/19 10:21 Dose: 100 mg Pantoprazole Sodium (Protonix Iv) 40 mg IVPUSH BID [facility] Last Admin: 02/26/19 10:18 Dose: 40 mg - Objective Vital Signs: Vital Signs Temperature 98.8 F 02/26/19 04:48 Pulse Rate 62 02/26/19 04:48 Respiratory Rate 18 02/26/19 04:48 Blood Pressure 140/82 02/26/19 04:48 O2 Sat by Pulse Oximetry (%) 99 02/25/19 21:00 Constitutional: Yes: No Distress, Calm Neck: Yes: Supple Cardiovascular: Yes: Regular Rate and Rhythm Respiratory: Yes: Regular, Diminished, On Nasal O2 Gastrointestinal: Yes: Normal Bowel Sounds, Soft, Abdomen, Obese Edema: No Labs: CBC, BMP 02/26/19 07:30 02/26/19 07:30 INR, PTT INR 1.08 (0.83-1.09) 02/24/19 09:00 Problem List - Problems (1) Paroxysmal atrial fibrillation with rapid ventricular response Code(s): I48.0 - PAROXYSMAL ATRIAL FIBRILLATION Assessment/Plan 02/17/2019 Echo: Normal LV size with mild cLVH, LVEF 60-65%, normal LA size, mild ao 4.0 cm 02/25/2019 Brain MRI: No acute or subacute stroke Problem List - Problems (1) HTN (hypertension) Code(s): I10 - ESSENTIAL (PRIMARY) HYPERTENSION (2) Hypercholesterolemia Code(s): E78.00 - PURE HYPERCHOLESTEROLEMIA, UNSPECIFIED (3) Bipolar disorder Code(s): F31.9 - BIPOLAR DISORDER, UNSPECIFIED (5) Renal failure Code(s): N19 - UNSPECIFIED KIDNEY FAILURE (6) Rhabdomyolysis Code(s): M62.82 - RHABDOMYOLYSIS Assessment/Plan 1. Questionable syncope, altered mental status 2. s/p acute respiratory failure 3. Coronary artery disease/visual coronary artery calcification angina pectoris 4. Diastolic LV dysfunction with clinical class 0 NYHA classification LV failure 5. PAF currently in sinus rhythm [id number] score of either 2-3 currently on no A/C recent coffee ground emesis/GI bleed 6. History of HTN 7. Hypercholesterolemia 8. Acute on CKD requiring HD resolving 9. Bipolar disorder, depression and anxiety 10. History of coffee ground emesis resolved etiology unclear PLAN: 1. Resumption of anticoagulation once hemostasis is achieved, await EGD to further evaluate hematemesis 2. Observe for renal recovery off HD per renal service 3. Continue Cardizem 30 tid 4. Complete antibiotics coverage 5. Future GI evaluation for the above noted GI bleed would be recommended specially with planned snf A/C utilization, may proceed from CV-standpoint , d/w GI service
[2019-02-26 11:11] LABS: INR 1.21 (0.83-1.09); PROTHROMBIN TIME (PATIENT) 14.3 SEC (9.7-13.0)
--- NOTE | 2019-02-26 12:25 | PN ---
Progress Note, Physician History of Present Illness: Pt seen and examined at bedside. He is awake and appears comfortable. He is making urine. - Current Medication List Current Medications: Active Medications Acetaminophen (Ofirmev Injection -) 1,000 mg IVPB Q6H PRN PRN Reason: FEVER Calcitriol (Rocaltrol -) 0.25 mcg PO DAILY [facility] Last Admin: 02/26/19 10:18 Dose: 0.25 mcg Calcium Acetate (Phoslo -) 667 mg PO TIDCM [facility] Last Admin: 02/26/19 12:13 Dose: Not Given Clotrimazole (Lotrimin 1% Cream -) 1 applic TP BID [facility] Last Admin: 02/26/19 10:24 Dose: Not Given Collagenase (Santyl -) 1 applic TP DAILY [facility]; Protocol Last Admin: 02/26/19 10:24 Dose: Not Given Diltiazem HCl (Cardizem -) 30 mg PO TID [facility] Last Admin: 02/26/19 07:43 Dose: Not Given Sodium Chloride (1/2 Normal Saline) 1,000 mls @ 83 mls/hr IV ASDIR [facility] Last Admin: 02/25/19 17:11 Dose: 83 mls/hr Sodium Chloride (Normal Saline -) 250 mls @ 3,000 mls/hr IV PRN PRN PRN Reason: Hypotension during Dialysis Piperacillin Sod/Tazobactam (Sod 2.25 gm/ Dextrose) 50 mls @ 100 mls/hr IVPB Q8H-IV [facility]; Protocol Last Admin: 02/26/19 10:17 Dose: 100 mls/hr Insulin Aspart (Novolog Vial Sliding Scale -) 1 vial SQ ACHS [facility]; Protocol Last Admin: 02/26/19 07:44 Dose: Not Given Lamotrigine (Lamictal -) 100 mg PO DAILY [facility] Last Admin: 02/26/19 10:21 Dose: 100 mg Pantoprazole Sodium (Protonix Iv) 40 mg IVPUSH BID [facility] Last Admin: 02/26/19 10:18 Dose: 40 mg - Objective Vital Signs: Vital Signs Temperature 98.8 F 02/26/19 04:48 Pulse Rate 62 02/26/19 04:48 Respiratory Rate 18 02/26/19 04:48 Blood Pressure 140/82 02/26/19 04:48 O2 Sat by Pulse Oximetry (%) 99 02/25/19 21:00 Constitutional: Yes: Calm Eyes: Yes: Conjunctiva Clear HENT: Yes: Atraumatic Neck: Yes: Supple Cardiovascular: Yes: S1, S2 Respiratory: Yes: CTA Bilaterally Gastrointestinal: Yes: Soft, Abdomen, Obese Genitourinary: Yes: Chou Present Musculoskeletal: Yes: WNL Edema: No Neurological: Yes: Oriented Labs: CBC, BMP 02/26/19 07:30 02/26/19 07:30 INR, PTT INR 1.21 (0.83-1.09) H 02/26/19 10:25 Assessment/Plan Current Medications Generic Name Dose Route Start Last Admin Trade Name Freq PRN Reason Stop Dose Admin Acetaminophen 1,000 mg 02/26/19 05:37 Ofirmev Injection - IVPB Q6H PRN FEVER Calcitriol 0.25 mcg 02/26/19 10:00 02/26/19 10:18 Rocaltrol - PO 0.25 mcg DAILY [facility] Administration Calcium Acetate 667 mg 02/26/19 08:00 02/26/19 12:13 Phoslo - PO Not Given TIDCM [facility] Clotrimazole 1 applic 02/26/19 10:00 02/26/19 10:24 Lotrimin 1% Cream - TP Not Given BID [facility] Collagenase 1 applic 02/25/19 15:15 02/26/19 10:24 Santyl - TP Not Given DAILY [facility] Protocol Diltiazem HCl 30 mg 02/26/19 06:00 02/26/19 07:43 Cardizem - PO Not Given TID [facility] Sodium Chloride 1,000 mls @ 83 mls/hr 02/25/19 16:55 02/25/19 17:11 1/2 Normal Saline IV 83 mls/hr ASDIR [facility] Administration Sodium Chloride 250 mls @ 3,000 mls/hr 02/26/19 05:37 Normal Saline - IV PRN PRN Hypotension during Dialysis Piperacillin Sod/Tazobactam 50 mls @ 100 mls/hr 02/26/19 10:00 02/26/19 10:17 Sod 2.25 gm/ Dextrose IVPB 100 mls/hr Q8H-IV [facility] Administration Protocol Insulin Aspart 1 vial 02/26/19 07:00 02/26/19 07:44 Novolog Vial Sliding Scale - SQ Not Given ACHS [facility] Protocol Lamotrigine 100 mg 02/26/19 10:00 02/26/19 10:21 Lamictal - PO 100 mg DAILY [facility] Administration Pantoprazole Sodium 40 mg 02/26/19 10:00 02/26/19 10:18 Protonix Iv IVPUSH 40 mg BID [facility] Administration Impression 1. SMITA 2. rhabdo 3. dka 4. altered mental status 5. hyperkalemia 6. resp failure Plan - renal function is improving - cont fluids - d/c shiley cath - will not likely need any more HD - pt is making urine - serologies negative - pt showing signs of renal recovery - discussed with medical team - voiding trial
--- NOTE | 2019-02-26 14:19 | PN ---
Teaching Attending Note Name of Resident: Eb Harding ATTENDING PHYSICIAN STATEMENT I saw and evaluated the patient. I reviewed the resident's note and discussed the case with the resident. I agree with the resident's findings and plan as documented. SUBJECTIVE: Feels well, no complaints s/p extubation 02/23. More alert but still disoriented. No further coffee ground emesis. POD 1 s/p wound debridement L knee, R hip. No fever/pain. OBJECTIVE: Afebrile, Hemodynamically stable. Extubated 02/23/Off Propofol and Levophed. AAO x 2 Last Vital Signs Temp Pulse Resp BP Pulse Ox 98.8 F 62 18 140/82 99 02/26/19 04:48 02/26/19 04:48 02/26/19 04:48 02/26/19 04:48 02/25/19 21:00 Heart - S1, S2, RRR Lungs - good air entry bilaterally. Few basal crackles. RIJ catheter. Abdomen - Soft, non-tender. R sided abdominal wall rug-burn like wound, without surrounding cellulitis. Extremities - mild edema. ulcer wound to inner aspect L knee and R hip dressed s /p surgical debridement 02/25, no surrounding erythema. Neuro - WILLARD. Moving extremities, Decreased Power on R - RUE 3/5, RLE 4/5 Laboratory Results - last 24 hr 02/25/19 02/26/19 02/26/19 16:03 00:03 05:33 WBC RBC Hgb Hct MCV MCH MCHC RDW Plt Count MPV Absolute Neuts (auto) Neutrophils % Lymphocytes % Monocytes % Eosinophils % Basophils % Nucleated RBC % PT with INR INR Sodium Potassium Chloride Carbon Dioxide Anion Gap BUN Creatinine Est GFR (CKD-EPI)AfAm Est GFR (CKD-EPI)NonAf POC Glucometer 147 152 142 Random Glucose Calcium Phosphorus Magnesium Total Bilirubin AST ALT Alkaline Phosphatase Total Protein Albumin 02/26/19 02/26/19 02/26/19 07:30 07:30 10:25 WBC 7.3 RBC 3.57 L Hgb 11.2 L Hct 33.1 L MCV 92.6 MCH 31.4 MCHC 33.8 RDW 13.5 Plt Count 191 D MPV 9.8 Absolute Neuts (auto) 6.0 Neutrophils % 82.8 Lymphocytes % 5.9 L Monocytes % 8.4 Eosinophils % 2.2 Basophils % 0.7 Nucleated RBC % 0 PT with INR 14.30 H INR 1.21 H Sodium 140 Potassium 3.9 Chloride 105 Carbon Dioxide 26 Anion Gap 9 BUN 58.4 H Creatinine 2.1 H Est GFR (CKD-EPI)AfAm 36.65 Est GFR (CKD-EPI)NonAf 31.62 POC Glucometer Random Glucose 140 H Calcium 8.6 Phosphorus 3.9 Magnesium 2.0 Total Bilirubin 1.1 H AST 19 ALT 33 Alkaline Phosphatase 80 Total Protein 5.3 L Albumin 1.8 L 02/26/19 12:09 WBC RBC Hgb Hct MCV MCH MCHC RDW Plt Count MPV Absolute Neuts (auto) Neutrophils % Lymphocytes % Monocytes % Eosinophils % Basophils % Nucleated RBC % PT with INR INR Sodium Potassium Chloride Carbon Dioxide Anion Gap BUN Creatinine Est GFR (CKD-EPI)AfAm Est GFR (CKD-EPI)NonAf POC Glucometer 143 Random Glucose Calcium Phosphorus Magnesium Total Bilirubin AST ALT Alkaline Phosphatase Total Protein Albumin Current Medications Generic Name Dose Route Start Last Admin Trade Name Freq PRN Reason Stop Dose Admin Acetaminophen 1,000 mg 02/26/19 05:37 Ofirmev Injection - IVPB Q6H PRN FEVER Calcitriol 0.25 mcg 02/26/19 10:00 02/26/19 10:18 Rocaltrol - PO 0.25 mcg DAILY [facility] Administration Calcium Acetate 667 mg 02/26/19 08:00 02/26/19 12:13 Phoslo - PO Not Given TIDCM [facility] Clotrimazole 1 applic 02/26/19 10:00 02/26/19 10:24 Lotrimin 1% Cream - TP Not Given BID [facility] Collagenase 1 applic 02/25/19 15:15 02/26/19 10:24 Santyl - TP Not Given DAILY [facility] Protocol Diltiazem HCl 30 mg 02/26/19 06:00 02/26/19 07:43 Cardizem - PO Not Given TID [facility] Sodium Chloride 1,000 mls @ 83 mls/hr 02/25/19 16:55 02/25/19 17:11 1/2 Normal Saline IV 83 mls/hr ASDIR [facility] Administration Sodium Chloride 250 mls @ 3,000 mls/hr 02/26/19 05:37 Normal Saline - IV PRN PRN Hypotension during Dialysis Piperacillin Sod/Tazobactam 50 mls @ 100 mls/hr 02/26/19 10:00 02/26/19 10:17 Sod 2.25 gm/ Dextrose IVPB 100 mls/hr Q8H-IV [facility] Administration Protocol Insulin Aspart 1 vial 02/26/19 07:00 02/26/19 07:44 Novolog Vial Sliding Scale - SQ Not Given ACHS [facility] Protocol Lamotrigine 100 mg 02/26/19 10:00 02/26/19 10:21 Lamictal - PO 100 mg DAILY [facility] Administration Pantoprazole Sodium 40 mg 02/26/19 10:00 02/26/19 10:18 Protonix Iv IVPUSH 40 mg BID [facility] Administration Home Medications Medication Instructions Recorded Allopurinol [Zyloprim -] 200 mg DAILY 02/17/19 Amlodipine Besylate 10 mg PO DAILY 02/17/19 Diazepam [Valium] 10 mg PO TID 02/17/19 Insulin Aspart [Novolog] 2 units TID 02/17/19 Insulin Glargine,Hum.rec.anlog 95 unit HS 02/17/19 [Young Griffith] Lamotrigine 100 mg DAILY 02/17/19 Losartan/Hydrochlorothiazide 1 tablet DAILY 02/17/19 [Losartan-Hctz 100-12.5 mg Tab] Quetiapine Fumarate [Seroquel -] 200 mg PO HS 02/17/19 ASSESSMENT/PLAN: 68 year old male with history of DM 2, HTN, HLD, CKD, Obesity, Bipolar Disorder , Depression, Anxiety, lives alone, found on floor of his house by his brother, noted to have SMITA, DKA, Multiple electrolyte abnormalities, AMS. 1. Acute Hypercapneic Respiratory Failure and Septic Shock, secondary to bilateral Pneumonia, likely Aspiration. Intubated, Extubated 02/23/19 CT C/A/P - bilateral consolidation. Leukocytosis resolved. Continue IV Zosyn to cover for possible aspiration. ID following. Sputum Cx - normal yulissa. Urine legionella Ag negative. 2. Syncope/Fall with LOC and Acute Encephalopathy (secondary to Uremia vs Hypernatremia vs Acidosis) Initially recovered mental status after adequate hydration and electrolyte replacement, but then became unresponsive in respiratory distress requiring intubation. Initial CT Head negative for acute findings, repeat CT shows no interval change. No telemonitoring events. Echo - normal EF, small pericardial effusion, no signs of tamponade. MRI Brain - age related changes, no acute intracranial findings. 3. Upper GI Bleed. Coffee-ground material noticed in NG tube, now cleared. IV PPI BID. H/H monitoring. NPO, scheduled for EGD today by GI. 4. Atrial Fibrillation with RVR - resolved. On oral Cardizem. Mode of AC to be determined after EGD. 5. 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 Renal US - no obstruction. HD catheter blocked during HD 02/21 - s/p RIJ replacement of HD catheter. Renal function improving - may not require any further HD as per Nephrology, will monitor. 5. Hypernatremia sec to dehydration - improved with HD 6. Hypokalemia/Hypocalcemia - repleted/resolved. Started on Calcitriol and Calcium supplementation. 7. DKA - resolved. Insulin drip discontinued. Endocrine following - once oral intake picks up may need to add Levemir 10 units. 8. Bipolar Disorder - normally on Seroquel, Lamictal, Diazepam. 9. HTN - Norvasc, Losartan, HCTZ held due to shock. BP acceptable currently on Cardizem only. 10. Wounds R abdominal wall, R Hip and L knee with eschar ?sec to fall/carpet burn, multiple decubitus ulcers buttocks and R hip - no surrounding erythema/ infection. POD 1 s/p wound debridement in OR. Wounds dressed. DVT Px - AC decisions to be made s/p EGD GI Px - PPI IV
--- NOTE | 2019-02-26 14:54 | PN ---
Progress Note (short form) - Note Progress Note: Pt re-evaluated this am prior to endoscopy and case reviewed/discussed with anesthesia team. Pt remains confused, though alert, reporting shortness of breath at times. CXR on 02/23 revealing b/l pleural changes. No overt bleeding. In absence of overt bleeding would defer EGD until pt further clinically optimized from a respiratory standpoint as also discussed with chair inspector, as risks may outweigh potential benefits at this time. If overt bleeding with drop in Hb or hemodynamic instability would consider more urgent endoscopic evaluation. Otherwise EGD will be rescheduled accordingly tentatively early next week. Please notify GI if any questions in the interim. Problem List - Problems (1) Coffee ground emesis Code(s): K92.0 - HEMATEMESIS
[2019-02-26] MEDS: HEPARIN - 25,000 UNIT in SODIUM CHLORIDE 495 ML IV SCH (17:44)
[2019-02-26] MEDS: SODIUM CHLORIDE 0.45% 1,000 ML IV SCH (17:58)
--- NOTE | 2019-02-26 19:15 | PN ---
Physical Exam: SUBJECTIVE: Patient seen and examined in the morning. No acute events overnight. No complaints of chest pain, shortness of breath, no abdominal pain. OBJECTIVE: Vital Signs Period Temp Pulse Resp BP Sys/Verdugo Pulse Ox Last 24 Hr 98 F-98.8 F 61-85 16-18 136-154/64-98 99 GENERAL: The patient is AOx1, responsive and cooperative HEAD: Normal with no signs of trauma. EYES: DANIELITO, EOMI NECK: Trachea midline LUNGS: Breath sounds equal, clear to auscultation bilaterally, no wheezes, no crackles HEART: RRR, no murmurs or rubs ABDOMEN: Soft, nontender, nondistended, normoactive bowel sounds, no guarding, no rebound, no masses. EXTREMITIES: 2+ pulses, warm, well-perfused, no edema. NEUROLOGICAL: Motor 3/5 on right, 5/5 on left. Sensations intact B/L SKIN: Warm, dry, normal turgor, eschar noted on rt hip, left knee Laboratory Results - last 24 hr 02/26/19 02/26/19 02/26/19 00:03 05:33 07:30 WBC 7.3 RBC 3.57 L Hgb 11.2 L Hct 33.1 L MCV 92.6 MCH 31.4 MCHC 33.8 RDW 13.5 Plt Count 191 D MPV 9.8 Absolute Neuts (auto) 6.0 Neutrophils % 82.8 Lymphocytes % 5.9 L Monocytes % 8.4 Eosinophils % 2.2 Basophils % 0.7 Nucleated RBC % 0 PT with INR INR Sodium Potassium Chloride Carbon Dioxide Anion Gap BUN Creatinine Est GFR (CKD-EPI)AfAm Est GFR (CKD-EPI)NonAf POC Glucometer 152 142 Random Glucose Calcium Phosphorus Magnesium Total Bilirubin AST ALT Alkaline Phosphatase Total Protein Albumin 02/26/19 02/26/19 02/26/19 07:30 10:25 12:09 WBC RBC Hgb Hct MCV MCH MCHC RDW Plt Count MPV Absolute Neuts (auto) Neutrophils % Lymphocytes % Monocytes % Eosinophils % Basophils % Nucleated RBC % PT with INR 14.30 H INR 1.21 H Sodium 140 Potassium 3.9 Chloride 105 Carbon Dioxide 26 Anion Gap 9 BUN 58.4 H Creatinine 2.1 H Est GFR (CKD-EPI)AfAm 36.65 Est GFR (CKD-EPI)NonAf 31.62 POC Glucometer 143 Random Glucose 140 H Calcium 8.6 Phosphorus 3.9 Magnesium 2.0 Total Bilirubin 1.1 H AST 19 ALT 33 Alkaline Phosphatase 80 Total Protein 5.3 L Albumin 1.8 L 02/26/19 16:37 WBC RBC Hgb Hct MCV MCH MCHC RDW Plt Count MPV Absolute Neuts (auto) Neutrophils % Lymphocytes % Monocytes % Eosinophils % Basophils % Nucleated RBC % PT with INR INR Sodium Potassium Chloride Carbon Dioxide Anion Gap BUN Creatinine Est GFR (CKD-EPI)AfAm Est GFR (CKD-EPI)NonAf POC Glucometer 127 Random Glucose Calcium Phosphorus Magnesium Total Bilirubin AST ALT Alkaline Phosphatase Total Protein Albumin Active Medications Generic Name Dose Route Start Last Admin Trade Name Freq PRN Reason Stop Dose Admin Acetaminophen 1,000 mg 02/26/19 05:37 Ofirmev Injection - IVPB Q6H PRN FEVER Calcitriol 0.25 mcg 02/26/19 10:00 02/26/19 10:18 Rocaltrol - PO 0.25 mcg DAILY [facility] Administration Calcium Acetate 667 mg 02/26/19 08:00 02/26/19 16:38 Phoslo - PO 667 mg TIDCM [facility] Administration Clotrimazole 1 applic 02/26/19 10:00 02/26/19 10:24 Lotrimin 1% Cream - TP Not Given BID [facility] Collagenase 1 applic 02/25/19 15:15 02/26/19 10:24 Santyl - TP Not Given DAILY [facility] Protocol Diltiazem HCl 30 mg 02/26/19 06:00 02/26/19 14:24 Cardizem - PO 30 mg TID [facility] Administration Heparin Sodium (Porcine) 1,000 unit 02/26/19 15:34 Heparin - IVPUSH PRN PRN Heparin Heparin Sodium (Porcine) 5,000 unit 02/26/19 15:34 Heparin - IVPUSH PRN PRN Heparin Sodium Chloride 250 mls @ 3,000 mls/hr 02/26/19 05:37 Normal Saline - IV PRN PRN Hypotension during Dialysis Piperacillin Sod/Tazobactam 50 mls @ 100 mls/hr 02/26/19 10:00 02/26/19 17:49 Sod 2.25 gm/ Dextrose IVPB 100 mls/hr Q8H-IV [facility] Administration Protocol Heparin Sodium (Porcine) 25, 500 mls @ 20 mls/hr 02/26/19 16:30 02/26/19 17: 44 000 unit/ Sodium Chloride IV 1,000 unit/hr TITR [facility] 20 mls/hr Administration Protocol 1,000 UNIT/HR Sodium Chloride 1,000 mls @ 42 mls/hr 02/26/19 17:45 02/26/19 17:58 1/2 Normal Saline IV 42 mls/hr ASDIR [facility] Administration Insulin Aspart 1 vial 02/26/19 07:00 02/26/19 16:38 Novolog Vial Sliding Scale - SQ Not Given ACHS [facility] Protocol Lamotrigine 100 mg 02/26/19 10:00 02/26/19 10:21 Lamictal - PO 100 mg DAILY [facility] Administration Pantoprazole Sodium 40 mg 02/26/19 10:00 02/26/19 10:18 Protonix Iv IVPUSH 40 mg BID [facility] Administration ASSESSMENT/PLAN: 68 M with PMH of DM, HTN, HLD, CKD, obesity, bipolar disorder, depression, and anxiety, who was brought to ED after being found down on the floor by brother with AMS. 1) AMS -Likely a toxic metabolic encephalopathy from uremia or electrolyte abnormalities or DKA. Has no recollection of what occurred before admission. -F/U MRI pending MRI Screening questionnaire. -CT head negative -F/U repeat CT Head negative for bleeds -Urine culture negative -1/2 NS @42 ml/hr -Insulin drip held -Sliding scale insulin -Endocrinology consulted, appreciate recs -Neurology consulted, appreciate recs 2) SMITA -Hemodialysis was partially completed yesterday due to blockage. -Rhabdomyolysis resolved -Renal U/S unremarkable -Nephrology consulted, appreciate recs 3)Coffee ground emesis -Upper ENdoscopy next week. 4) Pneumonia -CT Abdomen shows extensive bilateral lower lobe consolidation, right > left. -Zoysn 2.25 gram IV Q8H -ID consulted, appreciate recs -Legionella negative. 5)New onset Afib -Cardizem PO 30 mg TID PRN -On Heparin Drip -Cardiology consulted, appreciate recs -Echo shows normal EF -Normal sinus now 6) Wounds on lower chest, upper abdomen, hip -S/P Debridement. -Wet to dry dressing 7)History of Bipolar disorder -Holding home meds Dispo: Medicine Floors F: 1/2 NS @ 42 ml/hr E: Trend CMP. Replete as needed N: Soft diet Visit type - Emergency Visit Emergency Visit: Yes ED Registration Date: 02/16/19 Care time: The patient presented to the Emergency Department on the above date and was hospitalized for further evaluation of their emergent condition. - New Patient This patient is new to me today: No - Critical Care Critical Care patient: No ATTENDING PHYSICIAN STATEMENT I saw and evaluated the patient. I reviewed the resident's note and discussed the case with the resident. I agree with the resident's findings and plan as documented. SUBJECTIVE: OBJECTIVE: ASSESSMENT AND PLAN:
[2019-02-26] MEDS ORDERED: CHLORHEXIDINE GLUCONATE 4% CLEANSER FOR DECOLONIZATION TP SCH (22:00)
--- NOTE | 2019-02-26 22:12 | PN ---
Progress Note, Physician Chief Complaint: sitting in bed comfortable - Current Medication List Current Medications: Active Medications Acetaminophen (Ofirmev Injection -) 1,000 mg IVPB Q6H PRN PRN Reason: FEVER Calcitriol (Rocaltrol -) 0.25 mcg PO DAILY [facility] Last Admin: 02/26/19 10:18 Dose: 0.25 mcg Calcium Acetate (Phoslo -) 667 mg PO TIDCM [facility] Last Admin: 02/26/19 16:38 Dose: 667 mg Clotrimazole (Lotrimin 1% Cream -) 1 applic TP BID [facility] Last Admin: 02/26/19 10:24 Dose: Not Given Collagenase (Santyl -) 1 applic TP DAILY [facility]; Protocol Last Admin: 02/26/19 10:24 Dose: Not Given Diltiazem HCl (Cardizem -) 30 mg PO TID [facility] Last Admin: 02/26/19 21:52 Dose: 30 mg Heparin Sodium (Porcine) (Heparin -) 1,000 unit IVPUSH PRN PRN PRN Reason: Heparin Heparin Sodium (Porcine) (Heparin -) 5,000 unit IVPUSH PRN PRN PRN Reason: Heparin Sodium Chloride (Normal Saline -) 250 mls @ 3,000 mls/hr IV PRN PRN PRN Reason: Hypotension during Dialysis Piperacillin Sod/Tazobactam (Sod 2.25 gm/ Dextrose) 50 mls @ 100 mls/hr IVPB Q8H-IV [facility]; Protocol Last Admin: 02/26/19 17:49 Dose: 100 mls/hr Heparin Sodium (Porcine) 25, (000 unit/ Sodium Chloride) 500 mls @ 20 mls/hr IV TITR [facility]; Protocol Last Admin: 02/26/19 17:44 Dose: 1,000 unit/hr, 20 mls/hr Sodium Chloride (1/2 Normal Saline) 1,000 mls @ 42 mls/hr IV ASDIR [facility] Last Admin: 02/26/19 17:58 Dose: 42 mls/hr Insulin Aspart (Novolog Vial Sliding Scale -) 1 vial SQ ACHS [facility]; Protocol Last Admin: 02/26/19 16:38 Dose: Not Given Lamotrigine (Lamictal -) 100 mg PO DAILY [facility] Last Admin: 02/26/19 10:21 Dose: 100 mg Pantoprazole Sodium (Protonix Iv) 40 mg IVPUSH BID [facility] Last Admin: 02/26/19 21:52 Dose: 40 mg - Objective Vital Signs: Vital Signs Temperature 98.2 F 02/26/19 22:00 Pulse Rate 73 02/26/19 22:00 Respiratory Rate 20 02/26/19 22:00 Blood Pressure 157/77 02/26/19 22:00 O2 Sat by Pulse Oximetry (%) 97 02/26/19 10:45 Constitutional: Yes: Calm Eyes: Yes: EOM Intact HENT: Yes: Normocephalic Neck: Yes: Trachea Midline Cardiovascular: Yes: Regular Rate and Rhythm Respiratory: Yes: CTA Bilaterally Gastrointestinal: Yes: Normal Bowel Sounds ...Rectal Exam: Yes: Deferred Breast(s): Yes: WNL Musculoskeletal: Yes: Joint Stiffness, Muscle Pain, Muscle Weakness Extremities: Yes: Cool, Delayed Capillary Refill, Erythema Edema: LLE: 2+, RLE: 2+ Integumentary: Yes: Venous Stasis Changes Wound/Incision: Yes: Draining Neurological: Yes: Alert, Confusion Labs: CBC, BMP 02/26/19 07:30 02/26/19 07:30 INR, PTT INR 1.21 (0.83-1.09) H 02/26/19 10:25 Problem List - Problems (1) DKA (diabetic ketoacidoses) Problems reviewed: Yes Code(s): E11.10 - TYPE 2 DIABETES MELLITUS WITH KETOACIDOSIS WITHOUT COMA Qualifiers: Diabetes mellitus type: type 2 (2) HTN (hypertension) Problems reviewed: Yes Code(s): I10 - ESSENTIAL (PRIMARY) HYPERTENSION (3) Hypercholesterolemia Problems reviewed: Yes Code(s): E78.00 - PURE HYPERCHOLESTEROLEMIA, UNSPECIFIED (4) Leukocytosis Problems reviewed: Yes Code(s): D72.829 - ELEVATED WHITE BLOOD CELL COUNT, UNSPECIFIED (5) Renal failure Problems reviewed: Yes Code(s): N19 - UNSPECIFIED KIDNEY FAILURE (6) Rhabdomyolysis Problems reviewed: Yes Code(s): M62.82 - RHABDOMYOLYSIS (7) Uremia Code(s): N19 - UNSPECIFIED KIDNEY FAILURE Assessment/Plan Current Active Problems Bipolar disorder (Acute) Coffee ground emesis (Acute) DKA (diabetic ketoacidoses) (Acute) HTN (hypertension) (Acute) Hypercholesterolemia (Acute) Leukocytosis (Acute) Paroxysmal atrial fibrillation with rapid ventricular response (Acute) Renal failure (Acute) Rhabdomyolysis (Acute) Stroke (Acute) Unstageable pressure injury of skin and tissue (Acute) Uremia (Acute) Abnormal Lab Results 02/26/19 02/26/19 02/26/19 07:30 07:30 10:25 RBC 3.57 L Hgb 11.2 L Hct 33.1 L Lymphocytes % 5.9 L PT with INR 14.30 H INR 1.21 H BUN 58.4 H Creatinine 2.1 H Random Glucose 140 H Total Bilirubin 1.1 H Total Protein 5.3 L Albumin 1.8 L Laboratory Results - last 24 hr 02/26/19 02/26/19 02/26/19 00:03 05:33 07:30 WBC 7.3 RBC 3.57 L Hgb 11.2 L Hct 33.1 L MCV 92.6 MCH 31.4 MCHC 33.8 RDW 13.5 Plt Count 191 D MPV 9.8 Absolute Neuts (auto) 6.0 Neutrophils % 82.8 Lymphocytes % 5.9 L Monocytes % 8.4 Eosinophils % 2.2 Basophils % 0.7 Nucleated RBC % 0 PT with INR INR Sodium Potassium Chloride Carbon Dioxide Anion Gap BUN Creatinine Est GFR (CKD-EPI)AfAm Est GFR (CKD-EPI)NonAf POC Glucometer 152 142 Random Glucose Calcium Phosphorus Magnesium Total Bilirubin AST ALT Alkaline Phosphatase Total Protein Albumin 02/26/19 02/26/19 02/26/19 07:30 10:25 12:09 WBC RBC Hgb Hct MCV MCH MCHC RDW Plt Count MPV Absolute Neuts (auto) Neutrophils % Lymphocytes % Monocytes % Eosinophils % Basophils % Nucleated RBC % PT with INR 14.30 H INR 1.21 H Sodium 140 Potassium 3.9 Chloride 105 Carbon Dioxide 26 Anion Gap 9 BUN 58.4 H Creatinine 2.1 H Est GFR (CKD-EPI)AfAm 36.65 Est GFR (CKD-EPI)NonAf 31.62 POC Glucometer 143 Random Glucose 140 H Calcium 8.6 Phosphorus 3.9 Magnesium 2.0 Total Bilirubin 1.1 H AST 19 ALT 33 Alkaline Phosphatase 80 Total Protein 5.3 L Albumin 1.8 L 02/26/19 16:37 WBC RBC Hgb Hct MCV MCH MCHC RDW Plt Count MPV Absolute Neuts (auto) Neutrophils % Lymphocytes % Monocytes % Eosinophils % Basophils % Nucleated RBC % PT with INR INR Sodium Potassium Chloride Carbon Dioxide Anion Gap BUN Creatinine Est GFR (CKD-EPI)AfAm Est GFR (CKD-EPI)NonAf POC Glucometer 127 Random Glucose Calcium Phosphorus Magnesium Total Bilirubin AST ALT Alkaline Phosphatase Total Protein Albumin plan: wound care bgm achs novolog scale iv antibiotic therapy
[2019-02-27] MEDS: INSULIN SLIDING SCALE (NOVOLOG) 1 VIAL SQ SCH ×5 (00:10→22:00)
[2019-02-27] MEDS ORDERED: MELATONIN 5 MG TABLETS PO ONE (00:14)
[2019-02-27] MEDS ORDERED: PIPERACILLIN/TAZOB 3.375 GM 3.375 GM in DEXTROSE 5%-WATER - 50 ML IVPB SCH (02:00)
[2019-02-27] MEDS ORDERED: PIPERACILLIN/TAZOBACTAM 2.25 GM VIAL IVPB ONE ×3 (02:40→16:37)
[2019-02-27] MEDS ORDERED: DEXTROSE 5%-WATER - 50 ML IVPB ONE ×3 (02:40→16:38)
[2019-02-27] MEDS: PIPERACILLIN/TAZOB 2.25 GM 2.25 GM in DEXTROSE 5%-WATER - 50 ML IVPB SCH ×3 (02:51→17:14)
[2019-02-27] MEDS: dilTIAZem HCL 30 MG TABLET (FP) PO SCH ×3 (06:37→21:51)
[2019-02-27 08:59] LABS: BASO % 0.7 % (0-2.0); EOS % 3.6 % (0-4.5); HEMATOCRIT 33.4 % (35.4-49); HEMOGLOBIN 11.3 GM/dL (11.7-16.9); LYMPH % 9.4 % (8-40); MCH 31.3 pg (25.7-33.7); MCHC 33.7 g/dl (32.0-35.9); MEAN CELL VOLUME 92.9 fl (80-96); MEAN PLT VOLUME 9.7 fl (7.5-11.1); MONO % 8.7 % (3.8-10.2); NEUT % 77.6 % (42.8-82.8); PLATELET COUNT 223 K/MM3 (134-434); RDW 13.3 % (11.9-15.9); WHITE BLOOD COUNT 5.9 K/mm3 (4.0-10.0)
[2019-02-27 09:37] LABS: BLOOD UREA NITROGEN 49.9 mg/dL (7-18); CALCIUM 8.6 mg/dL (8.5-10.1); CREATININE 1.8 mg/dL (0.55-1.3)
[2019-02-27] MEDS ORDERED: PT OWN MED DRAWER 7, Y5N ONE ×2 (10:13→21:14)
[2019-02-27] MEDS: COLLAGENASE CLOSTRIDIUM HIST. 30 GRAMS TUBE TP SCH (10:18)
[2019-02-27] MEDS: CLOTRIMAZOLE 1% CREAM 15 GM TUBE TP SCH ×2 (10:18→21:52)
[2019-02-27] MEDS: CALCIUM ACETATE 667 MG CAPSULE (FP) PO SCH ×5 (10:18→17:21)
[2019-02-27] MEDS: PANTOPRAZOLE SODIUM 40 MG VIAL IVPUSH SCH ×2 (10:18→21:51)
[2019-02-27] MEDS: CALCITRIOL 0.25 MCG CAPSULE (FP) PO SCH (10:18)
[2019-02-27] MEDS: lamoTRIgine 100 MG TABLET (FP) PO SCH (10:18)
[2019-02-27 10:42] LABS: ANISOCYTOSIS 0; MACROCYTOSIS 0; PLATELET ESTIMATE NORMAL
[2019-02-27] MEDS: HEPARIN NA (PORCINE) 5,000 UNITS/ML 1ML VIAL IVPUSH PRN (11:12)
--- NOTE | 2019-02-27 14:23 | PN.GI ---
GI Progress Note Subjective: EGD cancelled, high risk for GI procedure, No nausea, vomiting, tolerating diet, poor appetite - Objective Vital Signs: Vital Signs Temperature 98.1 F 02/27/19 14:14 Pulse Rate 65 02/27/19 14:14 Respiratory Rate 15 02/27/19 08:44 Blood Pressure 157/78 02/27/19 14:14 O2 Sat by Pulse Oximetry (%) 97 02/27/19 09:00 Constitutional: Obese Eyes: Yes: Conjunctiva Clear HENT: Yes: Atraumatic Neck: Yes: Supple Cardiovascular: Yes: Regular Rate and Rhythm Respiratory: Yes: CTA Bilaterally ...Palpate: Yes: Soft. No: Firm/Rigid, Guarding, Hepatomegaly, Mass, Pulsatile Mass, Splenomegaly, Tenderness Labs: CBC, BMP 02/27/19 08:30 02/27/19 08:30 INR, PTT INR 1.21 (0.83-1.09) H 02/26/19 10:25 Problem List - Problems (1) Coffee ground emesis Assessment/Plan: associated with stable Hgb R> continue PPI Code(s): K92.0 - HEMATEMESIS
--- NOTE | 2019-02-27 15:40 | PN ---
Progress Note, Physician History of Present Illness: POD #2 s/p Excisional debridement left knee and right hip - skin, subcutaneous tissue. No further hematemesis. Arousable, SMITA improving off HD, making urine now. Hgb stable, EGD deferred. - Current Medication List Current Medications: Active Medications Acetaminophen (Ofirmev Injection -) 1,000 mg IVPB Q6H PRN PRN Reason: FEVER Calcitriol (Rocaltrol -) 0.25 mcg PO DAILY [facility] Last Admin: 02/27/19 10:18 Dose: 0.25 mcg Calcium Acetate (Phoslo -) 667 mg PO TIDCM [facility] Last Admin: 02/27/19 11:45 Dose: 667 mg Clotrimazole (Lotrimin 1% Cream -) 1 applic TP BID [facility]ES Last Admin: 02/27/19 10:18 Dose: 1 applic Collagenase (Santyl -) 1 applic TP DAILY [facility]; Protocol Last Admin: 02/27/19 10:18 Dose: 1 applic Diltiazem HCl (Cardizem -) 30 mg PO TID [facility]ES Last Admin: 02/27/19 13:19 Dose: 30 mg Heparin Sodium (Porcine) (Heparin -) 1,000 unit IVPUSH PRN PRN PRN Reason: Heparin Heparin Sodium (Porcine) (Heparin -) 5,000 unit IVPUSH PRN PRN PRN Reason: Heparin Last Admin: 02/27/19 11:12 Dose: 5,000 unit Sodium Chloride (Normal Saline -) 250 mls @ 3,000 mls/hr IV PRN PRN PRN Reason: Hypotension during Dialysis Piperacillin Sod/Tazobactam (Sod 2.25 gm/ Dextrose) 50 mls @ 100 mls/hr IVPB Q8H-IV [facility]; Protocol Last Admin: 02/27/19 10:16 Dose: 100 mls/hr Heparin Sodium (Porcine) 25, (000 unit/ Sodium Chloride) 500 mls @ 20 mls/hr IV TITR [facility]; Protocol Last Titration: 02/27/19 11:12 Dose: 1,150 unit/hr, 23 mls/hr Sodium Chloride (1/2 Normal Saline) 1,000 mls @ 42 mls/hr IV ASDIR [facility] Last Admin: 02/26/19 17:58 Dose: 42 mls/hr Insulin Aspart (Novolog Vial Sliding Scale -) 1 vial SQ ACHS PENDING SALE TO [facility]; Protocol Last Admin: 02/27/19 11:17 Dose: Not Given Lamotrigine (Lamictal -) 100 mg PO DAILY [facility] Last Admin: 02/27/19 10:18 Dose: 100 mg Pantoprazole Sodium (Protonix Iv) 40 mg IVPUSH BID PENDING S[facility] TO [facility] Last Admin: 02/27/19 10:18 Dose: 40 mg - Objective Vital Signs: Vital Signs Temperature 98.1 F 02/27/19 14:14 Pulse Rate 65 02/27/19 14:14 Respiratory Rate 15 02/27/19 08:44 Blood Pressure 157/78 02/27/19 14:14 O2 Sat by Pulse Oximetry (%) 97 02/27/19 09:00 Constitutional: Yes: No Distress, Calm Neck: Yes: Supple Cardiovascular: Yes: Pulse Irregular Respiratory: Yes: Regular, Diminished Gastrointestinal: Yes: Soft, Hypoactive Bowel Sounds Edema: No Labs: CBC, BMP 02/27/19 08:30 02/27/19 08:30 INR, PTT INR 1.21 (0.83-1.09) H 02/26/19 10:25 Problem List - Problems (1) Paroxysmal atrial fibrillation with rapid ventricular response Code(s): I48.0 - PAROXYSMAL ATRIAL FIBRILLATION Assessment/Plan 02/17/2019 Echo: Normal LV size with mild cLVH, LVEF 60-65%, normal LA size, mild ao 4.0 cm 02/25/2019 Brain MRI: No acute or subacute stroke Problem List - Problems (1) HTN (hypertension) Code(s): I10 - ESSENTIAL (PRIMARY) HYPERTENSION (2) Hypercholesterolemia Code(s): E78.00 - PURE HYPERCHOLESTEROLEMIA, UNSPECIFIED (3) Bipolar disorder Code(s): F31.9 - BIPOLAR DISORDER, UNSPECIFIED (5) Renal failure Code(s): N19 - UNSPECIFIED KIDNEY FAILURE (6) Rhabdomyolysis Code(s): M62.82 - RHABDOMYOLYSIS Assessment/Plan 1. Questionable syncope, altered mental status 2. s/p acute respiratory failure 3. Coronary artery disease/visual coronary artery calcification angina pectoris 4. Diastolic LV dysfunction with clinical class 0 NYHA classification LV failure 5. PAF currently in sinus rhythm [id number] score of either 2-3 currently on no A/C recent coffee ground emesis/GI bleed 6. History of HTN 7. Hypercholesterolemia 8. Acute on CKD requiring HD resolving 9. Bipolar disorder, depression and anxiety 10. History of coffee ground emesis resolved etiology unclear PLAN: 1. Resumption of heparin gtt->Eliquis as hemostasis is achieved 2. Observe for renal recovery off HD per renal service 3. Continue Cardizem 30 tid 4. Complete antibiotics coverage 5. EGD deferred due to elevated risk
--- NOTE | 2019-02-27 15:51 | PN ---
Progress Note (short form) - Note Progress Note: SUBJECTIVE: Feels well, no complaints s/p extubation 02/23. More alert but still disoriented. No further coffee ground emesis. POD 2 s/p wound debridement L knee, R hip. No fever/pain. OBJECTIVE: Afebrile, Tmax 99, Hemodynamically stable. Extubated 02/23. Off Propofol and Levophed. AAO x 2. SpO2 97% on 3L via NC. Last Vital Signs Temp Pulse Resp BP Pulse Ox 98.1 F 65 15 157/78 97 02/27/19 14:14 02/27/19 14:14 02/27/19 08:44 02/27/19 14:14 02/27/19 09:00 Heart - S1, S2, RRR Lungs - good air entry bilaterally. Few basal crackles. Abdomen - Soft, non-tender. R sided abdominal wall wound without surrounding cellulitis. Extremities - mild edema. Ulcer wound to inner aspect L knee and R hip dressed s /p surgical debridement 02/25, no surrounding erythema. Neuro - WLILARD. Moving extremities, Decreased Power on R - RUE 3/5, RLE 4/5 Laboratory Results - last 24 hr 02/26/19 02/26/19 02/27/19 16:37 23:37 06:35 WBC RBC Hgb Hct MCV MCH MCHC RDW Plt Count MPV Absolute Neuts (auto) Neutrophils % Neutrophils % (Manual) Band Neutrophils % Lymphocytes % Lymphocytes % (Manual) Monocytes % Monocytes % (Manual) Eosinophils % Eosinophils % (Manual) Basophils % Basophils % (Manual) Myelocytes % (Man) Promyelocytes % (Man) Blast Cells % (Manual) Nucleated RBC % Metamyelocytes Hypochromia Platelet Estimate Polychromasia Poikilocytosis Anisocytosis Microcytosis Macrocytosis PTT (Actin FS) Sodium Potassium Chloride Carbon Dioxide Anion Gap BUN Creatinine Est GFR (CKD-EPI)AfAm Est GFR (CKD-EPI)NonAf POC Glucometer 127 121 118 Random Glucose Calcium 02/27/19 02/27/19 02/27/19 08:30 08:30 09:38 WBC 5.9 RBC 3.60 L Hgb 11.3 L Hct 33.4 L MCV 92.9 MCH 31.3 MCHC 33.7 RDW 13.3 Plt Count 223 MPV 9.7 Absolute Neuts (auto) 4.6 Neutrophils % 77.6 Neutrophils % (Manual) 75.5 Band Neutrophils % 0.0 Lymphocytes % 9.4 D Lymphocytes % (Manual) 14.3 D Monocytes % 8.7 Monocytes % (Manual) 5 D Eosinophils % 3.6 Eosinophils % (Manual) 1.0 Basophils % 0.7 Basophils % (Manual) 0.0 Myelocytes % (Man) 1 D Promyelocytes % (Man) 0 Blast Cells % (Manual) 0 Nucleated RBC % 0 Metamyelocytes 0 Hypochromia 0 Platelet Estimate Normal Polychromasia 0 Poikilocytosis 0 Anisocytosis 0 Microcytosis 0 Macrocytosis 0 PTT (Actin FS) 30.3 Sodium 137 Potassium 4.0 Chloride 104 Carbon Dioxide 22 Anion Gap 11 BUN 49.9 H Creatinine 1.8 H Est GFR (CKD-EPI)AfAm 44.15 Est GFR (CKD-EPI)NonAf 38.10 POC Glucometer Random Glucose 124 H Calcium 8.6 02/27/19 11:16 WBC RBC Hgb Hct MCV MCH MCHC RDW Plt Count MPV Absolute Neuts (auto) Neutrophils % Neutrophils % (Manual) Band Neutrophils % Lymphocytes % Lymphocytes % (Manual) Monocytes % Monocytes % (Manual) Eosinophils % Eosinophils % (Manual) Basophils % Basophils % (Manual) Myelocytes % (Man) Promyelocytes % (Man) Blast Cells % (Manual) Nucleated RBC % Metamyelocytes Hypochromia Platelet Estimate Polychromasia Poikilocytosis Anisocytosis Microcytosis Macrocytosis PTT (Actin FS) Sodium Potassium Chloride Carbon Dioxide Anion Gap BUN Creatinine Est GFR (CKD-EPI)AfAm Est GFR (CKD-EPI)NonAf POC Glucometer 132 Random Glucose Calcium Current Medications Generic Name Dose Route Start Last Admin Trade Name Freq PRN Reason Stop Dose Admin Acetaminophen 1,000 mg 02/26/19 05:37 Ofirmev Injection - IVPB Q6H PRN FEVER Calcitriol 0.25 mcg 02/26/19 10:00 02/27/19 10:18 Rocaltrol - PO 0.25 mcg DAILY TAVARES Administration Calcium Acetate 667 mg 02/26/19 08:00 02/27/19 11:45 Phoslo - PO 667 mg TIDCM [facility] Administration Clotrimazole 1 applic 02/26/19 10:00 02/27/19 10:18 Lotrimin 1% Cream - TP 1 applic BID T[facility]ES Administration Collagenase 1 applic 02/25/19 15:15 02/27/19 10:18 Santyl - TP 1 applic DAILY T[facility]ES Administration Protocol Diltiazem HCl 30 mg 02/26/19 06:00 02/27/19 13:19 Cardizem - PO 30 mg TID T[facility]ES Administration Heparin Sodium (Porcine) 1,000 unit 02/26/19 15:34 Heparin - IVPUSH PRN PRN Heparin Heparin Sodium (Porcine) 5,000 unit 02/26/19 15:34 02/27/19 11:12 Heparin - IVPUSH 5,000 unit PRN PRN Administration Heparin Sodium Chloride 250 mls @ 3,000 mls/hr 02/26/19 05:37 Normal Saline - IV PRN PRN Hypotension during Dialysis Piperacillin Sod/Tazobactam 50 mls @ 100 mls/hr 02/26/19 10:00 02/27/19 10:16 Sod 2.25 gm/ Dextrose IVPB 100 mls/hr Q8H-IV [facility] Administration Protocol Heparin Sodium (Porcine) 25, 500 mls @ 20 mls/hr 02/26/19 16:30 02/27/19 11: 12 000 unit/ Sodium Chloride IV 1,150 unit/hr TITR TAVARES 23 mls/hr Titration Protocol 1,000 UNIT/HR Sodium Chloride 1,000 mls @ 42 mls/hr 02/26/19 17:45 02/26/19 17:58 1/2 Normal Saline IV 42 mls/hr ASDIR T[facility] Administration Insulin Aspart 1 vial 02/26/19 07:00 02/27/19 11:17 Novolog Vial Sliding Scale - SQ Not Given ACHS T[facility]ES Protocol Lamotrigine 100 mg 02/26/19 10:00 02/27/19 10:18 Lamictal - PO 100 mg DAILY TAVARES Administration Pantoprazole Sodium 40 mg 02/26/19 10:00 02/27/19 10:18 Protonix Iv IVPUSH 40 mg BID TAVARES Administration Home Medications Medication Instructions Recorded Allopurinol [Zyloprim -] 200 mg DAILY 02/17/19 Amlodipine Besylate 10 mg PO DAILY 02/17/19 Diazepam [Valium] 10 mg PO TID 02/17/19 Insulin Aspart [Novolog] 2 units TID 02/17/19 Insulin Glargine,Hum.rec.anlog 95 unit HS 02/17/19 [Young Griffith] Lamotrigine 100 mg DAILY 02/17/19 Losartan/Hydrochlorothiazide 1 tablet DAILY 02/17/19 [Losartan-Hctz 100-12.5 mg Tab] Quetiapine Fumarate [Seroquel -] 200 mg PO HS 02/17/19 Fenofibrate 40 mg PO 02/26/19 Fluvastatin Sodium [Fluvastatin ER] 80 mg PO 02/26/19 Pregabalin [Lyrica -] 02/26/19 Tramadol HCl 50 mg PO 02/26/19 ASSESSMENT/PLAN: 68 year old male with history of DM 2, HTN, HLD, CKD, Obesity, Bipolar Disorder , Depression, Anxiety, lives alone, found on floor of his house by his brother, noted to have SMITA, DKA, Multiple electrolyte abnormalities, AMS. 1. Acute Hypercapneic Respiratory Failure and Septic Shock, secondary to bilateral Pneumonia, likely Aspiration. Intubated, Extubated 02/23/19 CT C/A/P - bilateral consolidation. Leukocytosis resolved. Continue IV Zosyn. ID following. Sputum Cx - normal yulissa. Urine legionella Ag negative. 2. Syncope/Fall with LOC and Acute Encephalopathy (secondary to Uremia vs Hypernatremia vs Acidosis) Initially recovered mental status after adequate hydration and electrolyte replacement, but then became unresponsive in respiratory distress requiring intubation. Initial CT Head negative for acute findings, repeat CT shows no interval change. No telemonitoring events. Echo - normal EF, small pericardial effusion, no signs of tamponade. MRI Brain - age related changes, no acute intracranial findings. 3. Upper GI Bleed. Coffee-ground material noticed in NG tube while intubated, now cleared, no further coffee ground emesis episodes. IV PPI BID. H/H stable. He was scheduled for EGD 02/26 but this was cancelled apparently due to his "breathing". Respiratory status stable, CXR shows improved aeration, no deterioration in respiratory status. Further management as per GI. Speech eval for diet recommendations. 4. Atrial Fibrillation with RVR - resolved. HR controlled on oral Cardizem. Heparin drip resumed pending EGD. Mode of AC to be determined after EGD. 5. 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 Renal US - no obstruction. HD catheter blocked during HD 02/21 - s/p RIJ replacement of HD catheter. Renal function improving - may not require any further HD as per Nephrology, will monitor. 5. Hypernatremia sec to dehydration - improved with HD 6. Hypokalemia/Hypocalcemia - repleted/resolved. Started on Calcitriol and Calcium supplementation. 7. DKA - resolved. Insulin drip discontinued. Endocrine following - once oral intake picks up may need to add Levemir 10 units. 8. Bipolar Disorder - normally on Seroquel, Lamictal, Diazepam. 9. HTN - Norvasc, Losartan, HCTZ held due to shock. BP acceptable currently on Cardizem only. 10. Wounds R abdominal wall, R Hip and L knee with eschar ?sec to fall/carpet burn, multiple decubitus ulcers buttocks and R hip - no surrounding erythema/ infection. POD 2 s/p wound debridement in OR. Wounds dressed. DVT Px - On Heparin drip. AC decisions to be made s/p EGD GI Px - PPI IV Visit type - Emergency Visit Emergency Visit: Yes ED Registration Date: 02/16/19 Care time: The patient presented to the Emergency Department on the above date and was hospitalized for further evaluation of their emergent condition. - New Patient This patient is new to me today: No - Critical Care Critical Care patient: No - Discharge Referral Referred to [facility] Med [facility] No
[2019-02-27] MEDS: SODIUM CHLORIDE 0.45% 1,000 ML IV SCH (18:28)
--- NOTE | 2019-02-27 18:38 | PN ---
Progress Note, Physician History of Present Illness: Pt seen and examined at bedside. He denies shortness of breath. He is making urine. - Current Medication List Current Medications: Active Medications Acetaminophen (Ofirmev Injection -) 1,000 mg IVPB Q6H PRN PRN Reason: FEVER Calcitriol (Rocaltrol -) 0.25 mcg PO DAILY TAVARES Last Admin: 02/27/19 10:18 Dose: 0.25 mcg Calcium Acetate (Phoslo -) 667 mg PO TIDCM T[facility]ES Last Admin: 02/27/19 17:21 Dose: Not Given Clotrimazole (Lotrimin 1% Cream -) 1 applic TP BID T[facility]ES Last Admin: 02/27/19 10:18 Dose: 1 applic Collagenase (Santyl -) 1 applic TP DAILY [facility]; Protocol Last Admin: 02/27/19 10:18 Dose: 1 applic Diltiazem HCl (Cardizem -) 30 mg PO TID [facility]ES Last Admin: 02/27/19 13:19 Dose: 30 mg Heparin Sodium (Porcine) (Heparin -) 1,000 unit IVPUSH PRN PRN PRN Reason: Heparin Heparin Sodium (Porcine) (Heparin -) 5,000 unit IVPUSH PRN PRN PRN Reason: Heparin Last Admin: 02/27/19 11:12 Dose: 5,000 unit Sodium Chloride (Normal Saline -) 250 mls @ 3,000 mls/hr IV PRN PRN PRN Reason: Hypotension during Dialysis Piperacillin Sod/Tazobactam (Sod 2.25 gm/ Dextrose) 50 mls @ 100 mls/hr IVPB Q8H-IV [facility]; Protocol Last Admin: 02/27/19 17:14 Dose: 100 mls/hr Heparin Sodium (Porcine) 25, (000 unit/ Sodium Chloride) 500 mls @ 20 mls/hr IV TITR [facility]; Protocol Last Titration: 02/27/19 11:12 Dose: 1,150 unit/hr, 23 mls/hr Sodium Chloride (1/2 Normal Saline) 1,000 mls @ 42 mls/hr IV ASDIR [facility] Last Admin: 02/27/19 18:28 Dose: Not Given Insulin Aspart (Novolog Vial Sliding Scale -) 1 vial SQ ACHS [facility]; Protocol Last Admin: 02/27/19 16:25 Dose: Not Given Lamotrigine (Lamictal -) 100 mg PO DAILY T[facility]ARES Last Admin: 02/27/19 10:18 Dose: 100 mg Pantoprazole Sodium (Protonix Iv) 40 mg IVPUSH BID T[facility]ES Last Admin: 02/27/19 10:18 Dose: 40 mg - Objective Vital Signs: Vital Signs Temperature 98.1 F 02/27/19 14:14 Pulse Rate 65 02/27/19 14:14 Respiratory Rate 15 02/27/19 08:44 Blood Pressure 157/78 02/27/19 14:14 O2 Sat by Pulse Oximetry (%) 97 02/27/19 09:00 Constitutional: Yes: Calm Eyes: Yes: Conjunctiva Clear HENT: Yes: Atraumatic Neck: Yes: Supple Cardiovascular: Yes: S1, S2 Respiratory: Yes: CTA Bilaterally Gastrointestinal: Yes: Soft, Abdomen, Obese Genitourinary: Yes: Incontinence Musculoskeletal: Yes: Muscle Weakness Edema: Yes Neurological: Yes: Oriented Labs: CBC, BMP 02/27/19 08:30 02/27/19 08:30 INR, PTT INR 1.21 (0.83-1.09) H 02/26/19 10:25 Assessment/Plan Current Medications Generic Name Dose Route Start Last Admin Trade Name Freq PRN Reason Stop Dose Admin Acetaminophen 1,000 mg 02/26/19 05:37 Ofirmev Injection - IVPB Q6H PRN FEVER Calcitriol 0.25 mcg 02/26/19 10:00 02/27/19 10:18 Rocaltrol - PO 0.25 mcg DAILY TAVARES Administration Calcium Acetate 667 mg 02/26/19 08:00 02/27/19 17:21 Phoslo - PO Not Given TIDCM [facility] Clotrimazole 1 applic 02/26/19 10:00 02/27/19 10:18 Lotrimin 1% Cream - TP 1 applic BID TAVARES Administration Collagenase 1 applic 02/25/19 15:15 02/27/19 10:18 Santyl - TP 1 applic DAILY TAVARES Administration Protocol Diltiazem HCl 30 mg 02/26/19 06:00 02/27/19 13:19 Cardizem - PO 30 mg TID TAVARES Administration Heparin Sodium (Porcine) 1,000 unit 02/26/19 15:34 Heparin - IVPUSH PRN PRN Heparin Heparin Sodium (Porcine) 5,000 unit 02/26/19 15:34 02/27/19 11:12 Heparin - IVPUSH 5,000 unit PRN PRN Administration Heparin Sodium Chloride 250 mls @ 3,000 mls/hr 02/26/19 05:37 Normal Saline - IV PRN PRN Hypotension during Dialysis Piperacillin Sod/Tazobactam 50 mls @ 100 mls/hr 02/26/19 10:00 02/27/19 17:14 Sod 2.25 gm/ Dextrose IVPB 100 mls/hr Q8H-IV T[facility]ARES Administration Protocol Heparin Sodium (Porcine) 25, 500 mls @ 20 mls/hr 02/26/19 16:30 02/27/19 11: 12 000 unit/ Sodium Chloride IV 1,150 unit/hr TITR TAVARES 23 mls/hr Titration Protocol 1,000 UNIT/HR Sodium Chloride 1,000 mls @ 42 mls/hr 02/26/19 17:45 02/27/19 18:28 1/2 Normal Saline IV Not Given ASDIR TAVARES Insulin Aspart 1 vial 02/26/19 07:00 02/27/19 16:25 Novolog Vial Sliding Scale - SQ Not Given ACHS T[facility]ES Protocol Lamotrigine 100 mg 02/26/19 10:00 02/27/19 10:18 Lamictal - PO 100 mg DAILY TAVARES Administration Pantoprazole Sodium 40 mg 02/26/19 10:00 02/27/19 10:18 Protonix Iv IVPUSH 40 mg BID TAVARES Administration Impression 1. SMITA 2. rhabdo 3. dka 4. altered mental status 5. hyperkalemia 6. resp failure Plan - repeat labs in am - can hold fluids and re-assess tomorrow - renal function is improving - no need for HD at this point - pt tolerating diet so far - check cpk
[2019-02-27] MEDS: HEPARIN - 25,000 UNIT in SODIUM CHLORIDE 495 ML IV SCH (18:40)
[2019-02-28] MEDS ORDERED: PIPERACILLIN/TAZOBACTAM 2.25 GM VIAL IVPB ONE ×3 (01:15→16:55)
[2019-02-28] MEDS ORDERED: DEXTROSE 5%-WATER - 50 ML IVPB ONE ×2 (01:15→09:23)
[2019-02-28] MEDS: PIPERACILLIN/TAZOB 2.25 GM 2.25 GM in DEXTROSE 5%-WATER - 50 ML IVPB SCH ×3 (01:38→17:12)
[2019-02-28] MEDS: dilTIAZem HCL 30 MG TABLET (FP) PO SCH ×3 (05:22→21:55)
[2019-02-28] MEDS: INSULIN SLIDING SCALE (NOVOLOG) 1 VIAL SQ SCH ×4 (06:05→21:56)
--- NOTE | 2019-02-28 08:46 | PN ---
Progress Note (short form) - Note Progress Note: patient still has intermittent dyspnea will need EGD before AC use. will need pulmonary and cardio clearance. Please recall once medically cleared. Problem List - Problems (1) Coffee ground emesis Code(s): K92.0 - HEMATEMESIS
[2019-02-28 09:19] LABS: BASO % 1.2 % (0-2.0); EOS % 4.3 % (0-4.5); HEMATOCRIT 31.8 % (35.4-49); HEMOGLOBIN 11.2 GM/dL (11.7-16.9); LYMPH % 8.5 % (8-40); MCHC 35.2 g/dl (32.0-35.9); MEAN CELL VOLUME 90.8 fl (80-96); MEAN PLT VOLUME 9.4 fl (7.5-11.1); MONO % 7.9 % (3.8-10.2); NEUT % 78.1 % (42.8-82.8); PLATELET COUNT 224 K/MM3 (134-434); RBC 3.51 M/mm3 (4.00-5.60); RDW 13.1 % (11.9-15.9); WHITE BLOOD COUNT 5.2 K/mm3 (4.0-10.0)
[2019-02-28] MEDS ORDERED: PT OWN MED DRAWER 7, Y5N ONE (09:23)
[2019-02-28] MEDS: CALCIUM ACETATE 667 MG CAPSULE (FP) PO SCH ×3 (09:33→16:42)
[2019-02-28] MEDS: CALCITRIOL 0.25 MCG CAPSULE (FP) PO SCH (09:33)
[2019-02-28] MEDS: PANTOPRAZOLE SODIUM 40 MG VIAL IVPUSH SCH ×2 (09:33→21:55)
[2019-02-28] MEDS: lamoTRIgine 100 MG TABLET (FP) PO SCH (09:34)
[2019-02-28] MEDS: CLOTRIMAZOLE 1% CREAM 15 GM TUBE TP SCH ×2 (10:00→21:56)
[2019-02-28] MEDS: COLLAGENASE CLOSTRIDIUM HIST. 30 GRAMS TUBE TP SCH (10:00)
[2019-02-28] MEDS: HEPARIN NA (PORCINE) 5,000 UNITS/ML 1ML VIAL IVPUSH PRN ×2 (10:24→18:40)
[2019-02-28] MEDS: HEPARIN - 25,000 UNIT in SODIUM CHLORIDE 495 ML IV SCH ×2 (10:30→18:40)
[2019-02-28 10:55] LABS: ANISOCYTOSIS 0; MACROCYTOSIS 0; PLATELET ESTIMATE NORMAL
--- NOTE | 2019-02-28 11:08 | PN ---
Teaching Attending Note Name of Resident: Eb Harding ATTENDING PHYSICIAN STATEMENT I saw and evaluated the patient. I reviewed the resident's note and discussed the case with the resident. I agree with the resident's findings and plan as documented. SUBJECTIVE: Feels well, no complaints s/p extubation 02/23. More alert but still disoriented. No further coffee ground emesis. POD 3 s/p wound debridement L knee, R hip. No fever/pain. no SOB/cough/sputum/hemoptysis. OBJECTIVE: Afebrile, Hemodynamically stable. Extubated 02/23. Off Propofol and Levophed. AAO x 2. SpO2 97% on 3L via NC. Last Vital Signs Temp Pulse Resp BP Pulse Ox 98.9 F 69 19 150/80 97 02/28/19 05:53 02/28/19 05:53 02/28/19 05:53 02/28/19 05:53 02/27/19 21:00 Heart - S1, S2, RRR Lungs - good air entry bilaterally. Few basal crackles. Abdomen - Soft, non-tender. R sided abdominal wall wound without surrounding cellulitis. Extremities - mild edema. Ulcer wound to inner aspect L knee and R hip dressed s /p surgical debridement 02/25, no surrounding erythema. Neuro - WILLARD. Moving extremities, Decreased Power on R - RUE 3/5, RLE 4/5 Laboratory Results - last 24 hr 02/27/19 02/27/19 02/27/19 11:16 16:23 18:06 WBC RBC Hgb Hct MCV MCH MCHC RDW Plt Count MPV Absolute Neuts (auto) Neutrophils % Neutrophils % (Manual) Band Neutrophils % Lymphocytes % Lymphocytes % (Manual) Monocytes % Monocytes % (Manual) Eosinophils % Eosinophils % (Manual) Basophils % Basophils % (Manual) Myelocytes % (Man) Promyelocytes % (Man) Blast Cells % (Manual) Nucleated RBC % Metamyelocytes Hypochromia Platelet Estimate Polychromasia Poikilocytosis Anisocytosis Microcytosis Macrocytosis PTT (Actin FS) 115.5 H Sodium Potassium Chloride Carbon Dioxide Anion Gap BUN Creatinine Est GFR (CKD-EPI)AfAm Est GFR (CKD-EPI)NonAf POC Glucometer 132 108 Random Glucose Calcium Phosphorus Magnesium Total Bilirubin AST ALT Alkaline Phosphatase Creatine Kinase Total Protein Albumin 02/27/19 02/28/19 02/28/19 21:59 05:37 07:45 WBC 5.2 RBC 3.51 L Hgb 11.2 L Hct 31.8 L MCV 90.8 MCH 32.0 MCHC 35.2 RDW 13.1 Plt Count 224 MPV 9.4 Absolute Neuts (auto) 4.1 Neutrophils % 78.1 Neutrophils % (Manual) 73.5 Band Neutrophils % 0.0 Lymphocytes % 8.5 Lymphocytes % (Manual) 7.9 L D Monocytes % 7.9 Monocytes % (Manual) 3 L Eosinophils % 4.3 Eosinophils % (Manual) 6.9 H D Basophils % 1.2 Basophils % (Manual) 1.0 D Myelocytes % (Man) 3 H D Promyelocytes % (Man) 0 Blast Cells % (Manual) 0 Nucleated RBC % 0 Metamyelocytes 1 D Hypochromia 0 Platelet Estimate Normal Polychromasia 0 Poikilocytosis 0 Anisocytosis 0 Microcytosis 0 Macrocytosis 0 PTT (Actin FS) Sodium Potassium Chloride Carbon Dioxide Anion Gap BUN Creatinine Est GFR (CKD-EPI)AfAm Est GFR (CKD-EPI)NonAf POC Glucometer 137 124 Random Glucose Calcium Phosphorus Magnesium Total Bilirubin AST ALT Alkaline Phosphatase Creatine Kinase Total Protein Albumin 02/28/19 02/28/19 07:45 07:45 WBC RBC Hgb Hct MCV MCH MCHC RDW Plt Count MPV Absolute Neuts (auto) Neutrophils % Neutrophils % (Manual) Band Neutrophils % Lymphocytes % Lymphocytes % (Manual) Monocytes % Monocytes % (Manual) Eosinophils % Eosinophils % (Manual) Basophils % Basophils % (Manual) Myelocytes % (Man) Promyelocytes % (Man) Blast Cells % (Manual) Nucleated RBC % Metamyelocytes Hypochromia Platelet Estimate Polychromasia Poikilocytosis Anisocytosis Microcytosis Macrocytosis PTT (Actin FS) 33.4 Sodium Cancelled Potassium Cancelled Chloride Cancelled Carbon Dioxide Cancelled Anion Gap Cancelled BUN Cancelled Creatinine Cancelled Est GFR (CKD-EPI)AfAm Cancelled Est GFR (CKD-EPI)NonAf Cancelled POC Glucometer Random Glucose Cancelled Calcium Cancelled Phosphorus Cancelled Magnesium Cancelled Total Bilirubin Cancelled AST Cancelled ALT Cancelled Alkaline Phosphatase Cancelled Creatine Kinase Cancelled Total Protein Cancelled Albumin Cancelled Current Medications Generic Name Dose Route Start Last Admin Trade Name Freq PRN Reason Stop Dose Admin Acetaminophen 1,000 mg 02/26/19 05:37 Ofirmev Injection - IVPB Q6H PRN FEVER Calcitriol 0.25 mcg 02/26/19 10:00 02/28/19 09:33 Rocaltrol - PO 0.25 mcg DAILY [facility] Administration Calcium Acetate 667 mg 02/26/19 08:00 02/28/19 09:33 Phoslo - PO 667 mg TIDCM [facility] Administration Clotrimazole 1 applic 02/26/19 10:00 02/27/19 21:52 Lotrimin 1% Cream - TP 1 applic BID [facility] Administration Collagenase 1 applic 02/25/19 15:15 02/27/19 10:18 Santyl - TP 1 applic DAILY [facility] Administration Protocol Diltiazem HCl 30 mg 02/26/19 06:00 02/28/19 05:22 Cardizem - PO 30 mg TID [facility] Administration Heparin Sodium (Porcine) 1,000 unit 02/26/19 15:34 Heparin - IVPUSH PRN PRN Heparin Heparin Sodium (Porcine) 5,000 unit 02/26/19 15:34 02/28/19 10:24 Heparin - IVPUSH 5,000 unit PRN PRN Administration Heparin Sodium Chloride 250 mls @ 3,000 mls/hr 02/26/19 05:37 Normal Saline - IV PRN PRN Hypotension during Dialysis Piperacillin Sod/Tazobactam 50 mls @ 100 mls/hr 02/26/19 10:00 02/28/19 09:33 Sod 2.25 gm/ Dextrose IVPB 100 mls/hr Q8H-IV [facility] Administration Protocol Heparin Sodium (Porcine) 25, 500 mls @ 20 mls/hr 02/26/19 16:30 02/27/19 18: 40 000 unit/ Sodium Chloride IV 1,150 unit/hr TITR [facility] 23 mls/hr Administration Protocol 1,000 UNIT/HR Insulin Aspart 1 vial 02/26/19 07:00 02/28/19 06:05 Novolog Vial Sliding Scale - SQ Not Given ACHS [facility] Protocol Lamotrigine 100 mg 02/26/19 10:00 02/28/19 09:34 Lamictal - PO 100 mg DAILY [facility] Administration Pantoprazole Sodium 40 mg 02/26/19 10:00 02/28/19 09:33 Protonix Iv IVPUSH 40 mg BID [facility] Administration Tramadol HCl 50 mg 02/28/19 10:49 Ultram - PO Q6H PRN PAIN LEVEL 7 - 10 Home Medications Medication Instructions Recorded Allopurinol [Zyloprim -] 200 mg DAILY 02/17/19 Amlodipine Besylate 10 mg PO DAILY 02/17/19 Diazepam [Valium] 10 mg PO TID 02/17/19 Insulin Aspart [Novolog] 2 units TID 02/17/19 Insulin Glargine,Hum.rec.anlog 95 unit HS 02/17/19 [Toujeo Solostar] Lamotrigine 100 mg DAILY 02/17/19 Losartan/Hydrochlorothiazide 1 tablet DAILY 02/17/19 [Losartan-Hctz 100-12.5 mg Tab] Quetiapine Fumarate [Seroquel -] 200 mg PO HS 02/17/19 Fenofibrate 40 mg PO DAILY 02/26/19 Fluvastatin Sodium [Fluvastatin ER] 80 mg PO PRN 02/26/19 Pregabalin [Lyrica -] 02/26/19 Tramadol HCl 50 mg PO PRN 02/26/19 ASSESSMENT/PLAN: 68 year old male with history of DM 2, HTN, HLD, CKD 3, Obesity, Bipolar Disorder, Depression, Anxiety, lives alone, found on floor of his house by his brother, noted to have SMITA, DKA, Multiple electrolyte abnormalities, AMS. 1. Acute Hypercapneic Respiratory Failure and Septic Shock, secondary to bilateral Pneumonia, likely Aspiration. Intubated, Extubated 02/23/19 CT C/A/P - bilateral consolidation. Leukocytosis resolved. Continue IV Zosyn - follow up with ID for recommended duration. Sputum Cx - normal yulissa. Urine legionella Ag negative. 2. Syncope/Fall with LOC and Acute Encephalopathy (secondary to Uremia vs Hypernatremia vs Acidosis) Initially recovered mental status after adequate hydration and electrolyte replacement, but then became unresponsive in respiratory distress requiring intubation. Initial CT Head negative for acute findings, repeat CT shows no interval change. No telemonitoring events. Echo - normal EF, small pericardial effusion, no signs of tamponade. MRI Brain - age related changes, no acute intracranial findings. 3. Upper GI Bleed. Coffee-ground material noticed in NG tube while intubated, now cleared, no further coffee ground emesis episodes. IV PPI BID. H/H stable. He was scheduled for EGD 02/26 but this was cancelled apparently due to his "breathing". Respiratory status appears stable, CXR shows improved aeration, no deterioration in respiratory status. Further management as per GI. Speech eval requested for diet recommendations. Pulm/Cardio asked to "clear" for EGD on request of GI. 4. Atrial Fibrillation with RVR - resolved. HR controlled on oral Cardizem. Heparin drip resumed pending EGD. Mode of AC to be determined after EGD. 5. 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 Renal US - no obstruction. HD catheter blocked during HD 02/21 - s/p RIJ replacement of HD catheter. Renal function improving - may not require any further HD as per Nephrology, will monitor. Awaiting today's labs 5. Hypernatremia sec to dehydration - improved with HD 6. Hypokalemia/Hypocalcemia - repleted/resolved. Started on Calcitriol and Calcium supplementation. 7. DKA - resolved. Insulin drip discontinued. Endocrine following - once oral intake picks up may need to add Levemir 10 units. 8. Bipolar Disorder - normally on Seroquel, Lamictal, Diazepam. 9. HTN - Norvasc, Losartan, HCTZ held due to shock. BP creeping up. Will resume Losartan. 10. Wounds R abdominal wall, R Hip and L knee with eschar ?sec to fall/carpet burn, multiple decubitus ulcers buttocks and R hip - no surrounding erythema/ infection. POD 3 s/p wound debridement in OR. Wounds dressed. DVT Px - On Heparin drip. AC decisions to be made s/p EGD GI Px - PPI IV
--- NOTE | 2019-02-28 12:47 | PN ---
Progress Note, SCRAPPER - Note Progress Note: Soft diet,thin liquids Selected Entries 02/26/19 02/27/19 02/27/19 22:00 06:05 08:44 Breakfast Diet Tolerated Lunch Supper 0 Temperature 99.0 F 98.5 F 02/27/19 02/27/19 02/27/19 10:51 14:14 20:46 Breakfast 0 Diet Tolerated Refused Refused Refused Lunch 0 Supper Temperature 98.1 F 02/27/19 02/28/19 22:00 05:53 Breakfast Diet Tolerated Lunch Supper Temperature 98.2 F 98.9 F Laboratory Tests 02/28/19 07:45 WBC 5.2 MRI head- (-) Pt took eggs/juice this am. Did well with lunch. Verbal, slow word retrieval. Forgetful. Buttocks "on fire"-nursing aware Continue soft/thin/addedd Supplements/protein? per RD
[2019-02-28 13:27] LABS: ALBUMIN 1.8 g/dl (3.4-5.0); BILIRUBIN,TOTAL 0.7 mg/dL (0.2-1); CALCIUM 8.5 mg/dL (8.5-10.1); CREATININE 1.7 mg/dL (0.55-1.3); POTASSIUM 3.9 mmol/L (3.5-5.1); TOT PROT 5.1 g/dl (6.4-8.2)
--- NOTE | 2019-02-28 13:31 | PN ---
Progress Note, Physician History of Present Illness: POD #3 s/p Excisional debridement left knee and right hip - skin, subcutaneous tissue. No further hematemesis. SMITA improving off HD, making urine now. Hgb stable, EGD to be scheduled. - Current Medication List Current Medications: Active Medications Acetaminophen (Ofirmev Injection -) 1,000 mg IVPB Q6H PRN PRN Reason: FEVER Calcitriol (Rocaltrol -) 0.25 mcg PO DAILY [facility] Last Admin: 02/28/19 09:33 Dose: 0.25 mcg Calcium Acetate (Phoslo -) 667 mg PO TIDCM [facility] Last Admin: 02/28/19 09:33 Dose: 667 mg Clotrimazole (Lotrimin 1% Cream -) 1 applic TP BID [facility] Last Admin: 02/27/19 21:52 Dose: 1 applic Collagenase (Santyl -) 1 applic TP DAILY [facility]; Protocol Last Admin: 02/27/19 10:18 Dose: 1 applic Diltiazem HCl (Cardizem -) 30 mg PO TID [facility] Last Admin: 02/28/19 05:22 Dose: 30 mg Heparin Sodium (Porcine) (Heparin -) 1,000 unit IVPUSH PRN PRN PRN Reason: Heparin Heparin Sodium (Porcine) (Heparin -) 5,000 unit IVPUSH PRN PRN PRN Reason: Heparin Last Admin: 02/28/19 10:24 Dose: 5,000 unit Sodium Chloride (Normal Saline -) 250 mls @ 3,000 mls/hr IV PRN PRN PRN Reason: Hypotension during Dialysis Piperacillin Sod/Tazobactam (Sod 2.25 gm/ Dextrose) 50 mls @ 100 mls/hr IVPB Q8H-IV [facility]; Protocol Last Admin: 02/28/19 09:33 Dose: 100 mls/hr Heparin Sodium (Porcine) 25, (000 unit/ Sodium Chloride) 500 mls @ 20 mls/hr IV TITR [facility]; Protocol Last Admin: 02/27/19 18:40 Dose: 1,150 unit/hr, 23 mls/hr Insulin Aspart (Novolog Vial Sliding Scale -) 1 vial SQ ACHS [facility]; Protocol Last Admin: 02/28/19 11:55 Dose: Not Given Lamotrigine (Lamictal -) 100 mg PO DAILY [facility] Last Admin: 02/28/19 09:34 Dose: 100 mg Losartan Potassium (Cozaar -) 50 mg PO DAILY [facility] Pantoprazole Sodium (Protonix Iv) 40 mg IVPUSH BID [facility] Last Admin: 02/28/19 09:33 Dose: 40 mg Tramadol HCl (Ultram -) 50 mg PO Q6H PRN PRN Reason: PAIN LEVEL 7 - 10 - Objective Vital Signs: Vital Signs Temperature 98 F 02/28/19 09:00 Pulse Rate 56 L 02/28/19 09:00 Respiratory Rate 18 02/28/19 09:00 Blood Pressure 168/92 02/28/19 09:00 O2 Sat by Pulse Oximetry (%) 97 02/27/19 21:00 Constitutional: Yes: No Distress, Calm Neck: Yes: Supple Cardiovascular: Yes: Regular Rate and Rhythm Respiratory: Yes: Regular, Diminished, On Nasal O2 Gastrointestinal: Yes: Normal Bowel Sounds, Soft, Abdomen, Obese Genitourinary: Yes: Chou Present Edema: No Labs: CBC, BMP 02/28/19 07:45 02/28/19 11:50 INR, PTT INR 1.21 (0.83-1.09) H 02/26/19 10:25 Problem List - Problems (1) Paroxysmal atrial fibrillation with rapid ventricular response Code(s): I48.0 - PAROXYSMAL ATRIAL FIBRILLATION Assessment/Plan 02/17/2019 Echo: Normal LV size with mild cLVH, LVEF 60-65%, normal LA size, mild ao 4.0 cm 02/25/2019 Brain MRI: No acute or subacute stroke Problem List - Problems (1) HTN (hypertension) Code(s): I10 - ESSENTIAL (PRIMARY) HYPERTENSION (2) Hypercholesterolemia Code(s): E78.00 - PURE HYPERCHOLESTEROLEMIA, UNSPECIFIED (3) Bipolar disorder Code(s): F31.9 - BIPOLAR DISORDER, UNSPECIFIED (5) Renal failure Code(s): N19 - UNSPECIFIED KIDNEY FAILURE (6) Rhabdomyolysis Code(s): M62.82 - RHABDOMYOLYSIS Assessment/Plan 1. Questionable syncope, altered mental status 2. s/p acute respiratory failure 3. Coronary artery disease/visual coronary artery calcification angina pectoris 4. Diastolic LV dysfunction with clinical class 0 NYHA classification LV failure 5. PAF currently in sinus rhythm [id number] score of either 2-3 currently on no A/C recent coffee ground emesis/GI bleed 6. History of HTN 7. Hypercholesterolemia 8. Acute on CKD requiring HD resolving 9. Bipolar disorder, depression and anxiety 10. History of coffee ground emesis resolved etiology unclear PLAN: 1. Heparin gtt->Eliquis on protonix pending EGD, as hemostasis has been achieved 2. Monitor renal recovery off HD per renal service 3. Continue Cardizem 30 tid, losartan 50 qd 4. Complete antibiotics coverage 5. May proceed with EGD from CV-standpoint
--- NOTE | 2019-02-28 13:42 | PN ---
Progress Note, Physician History of Present Illness: Pt seen and examined at bedside. He is awake and appears comfortable. - Current Medication List Current Medications: Active Medications Acetaminophen (Ofirmev Injection -) 1,000 mg IVPB Q6H PRN PRN Reason: FEVER Calcitriol (Rocaltrol -) 0.25 mcg PO DAILY [facility] Last Admin: 02/28/19 09:33 Dose: 0.25 mcg Calcium Acetate (Phoslo -) 667 mg PO TIDCM [facility] Last Admin: 02/28/19 09:33 Dose: 667 mg Clotrimazole (Lotrimin 1% Cream -) 1 applic TP BID [facility] Last Admin: 02/27/19 21:52 Dose: 1 applic Collagenase (Santyl -) 1 applic TP DAILY [facility]; Protocol Last Admin: 02/27/19 10:18 Dose: 1 applic Diltiazem HCl (Cardizem -) 30 mg PO TID [facility] Last Admin: 02/28/19 05:22 Dose: 30 mg Heparin Sodium (Porcine) (Heparin -) 1,000 unit IVPUSH PRN PRN PRN Reason: Heparin Heparin Sodium (Porcine) (Heparin -) 5,000 unit IVPUSH PRN PRN PRN Reason: Heparin Last Admin: 02/28/19 10:24 Dose: 5,000 unit Sodium Chloride (Normal Saline -) 250 mls @ 3,000 mls/hr IV PRN PRN PRN Reason: Hypotension during Dialysis Piperacillin Sod/Tazobactam (Sod 2.25 gm/ Dextrose) 50 mls @ 100 mls/hr IVPB Q8H-IV [facility]; Protocol Last Admin: 02/28/19 09:33 Dose: 100 mls/hr Heparin Sodium (Porcine) 25, (000 unit/ Sodium Chloride) 500 mls @ 20 mls/hr IV TITR [facility]; Protocol Last Admin: 02/27/19 18:40 Dose: 1,150 unit/hr, 23 mls/hr Insulin Aspart (Novolog Vial Sliding Scale -) 1 vial SQ ACHS [facility]; Protocol Last Admin: 02/28/19 11:55 Dose: Not Given Lamotrigine (Lamictal -) 100 mg PO DAILY [facility] Last Admin: 02/28/19 09:34 Dose: 100 mg Losartan Potassium (Cozaar -) 50 mg PO DAILY [facility] Pantoprazole Sodium (Protonix Iv) 40 mg IVPUSH BID [facility] Last Admin: 02/28/19 09:33 Dose: 40 mg Tramadol HCl (Ultram -) 50 mg PO Q6H PRN PRN Reason: PAIN LEVEL 7 - 10 - Objective Vital Signs: Vital Signs Temperature 98 F 02/28/19 09:00 Pulse Rate 56 L 02/28/19 09:00 Respiratory Rate 18 02/28/19 09:00 Blood Pressure 168/92 02/28/19 09:00 O2 Sat by Pulse Oximetry (%) 97 02/27/19 21:00 Constitutional: Yes: Calm Eyes: Yes: Conjunctiva Clear HENT: Yes: Atraumatic Neck: Yes: Supple Cardiovascular: Yes: S1, S2 Respiratory: Yes: CTA Bilaterally Gastrointestinal: Yes: Soft, Abdomen, Obese Genitourinary: Yes: Incontinence Musculoskeletal: Yes: Muscle Weakness Edema: LLE: Trace, RLE: Trace Neurological: Yes: Confusion Labs: CBC, BMP 02/28/19 07:45 02/28/19 11:50 INR, PTT INR 1.21 (0.83-1.09) H 02/26/19 10:25 Assessment/Plan Current Medications Generic Name Dose Route Start Last Admin Trade Name Freq PRN Reason Stop Dose Admin Acetaminophen 1,000 mg 02/26/19 05:37 Ofirmev Injection - IVPB Q6H PRN FEVER Calcitriol 0.25 mcg 02/26/19 10:00 02/28/19 09:33 Rocaltrol - PO 0.25 mcg DAILY [facility] Administration Calcium Acetate 667 mg 02/26/19 08:00 02/28/19 09:33 Phoslo - PO 667 mg TIDCM [facility] Administration Clotrimazole 1 applic 02/26/19 10:00 02/27/19 21:52 Lotrimin 1% Cream - TP 1 applic BID [facility] Administration Collagenase 1 applic 02/25/19 15:15 02/27/19 10:18 Santyl - TP 1 applic DAILY [facility] Administration Protocol Diltiazem HCl 30 mg 02/26/19 06:00 02/28/19 05:22 Cardizem - PO 30 mg TID [facility] Administration Heparin Sodium (Porcine) 1,000 unit 02/26/19 15:34 Heparin - IVPUSH PRN PRN Heparin Heparin Sodium (Porcine) 5,000 unit 02/26/19 15:34 02/28/19 10:24 Heparin - IVPUSH 5,000 unit PRN PRN Administration Heparin Sodium Chloride 250 mls @ 3,000 mls/hr 02/26/19 05:37 Normal Saline - IV PRN PRN Hypotension during Dialysis Piperacillin Sod/Tazobactam 50 mls @ 100 mls/hr 02/26/19 10:00 02/28/19 09:33 Sod 2.25 gm/ Dextrose IVPB 100 mls/hr Q8H-IV [facility] Administration Protocol Heparin Sodium (Porcine) 25, 500 mls @ 20 mls/hr 02/26/19 16:30 02/27/19 18: 40 000 unit/ Sodium Chloride IV 1,150 unit/hr TITR [facility] 23 mls/hr Administration Protocol 1,000 UNIT/HR Insulin Aspart 1 vial 02/26/19 07:00 02/28/19 11:55 Novolog Vial Sliding Scale - SQ Not Given ACHS [facility] Protocol Lamotrigine 100 mg 02/26/19 10:00 02/28/19 09:34 Lamictal - PO 100 mg DAILY [facility] Administration Losartan Potassium 50 mg 02/28/19 12:00 Cozaar - PO DAILY [facility] Pantoprazole Sodium 40 mg 02/26/19 10:00 02/28/19 09:33 Protonix Iv IVPUSH 40 mg BID [facility] Administration Tramadol HCl 50 mg 02/28/19 10:49 Ultram - PO Q6H PRN PAIN LEVEL 7 - 10 Impression 1. SMITA 2. rhabdo 3. dka 4. altered mental status 5. hyperkalemia 6. 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
[2019-02-28] MEDS: LOSARTAN POTASSIUM 50 MG TABLET (FP) PO SCH (14:11)
--- NOTE | 2019-02-28 15:32 | PN ---
Physical Exam: SUBJECTIVE: Patient seen and examined in the morning. No acute events overnight. No complaints of chest pain, shortness of breath, cough, abdominal pain, nausea, vomiting, diarrhea. OBJECTIVE: Vital Signs Period Temp Pulse Resp BP Sys/Verdugo Pulse Ox Last 24 Hr 98 F-98.9 F 56-83 18-19 148-168/64-92 97 GENERAL: The patient is AOx2, responsive and cooperative HEAD: Normal with no signs of trauma. EYES: DANIELITO, EOMI NECK: Trachea midline LUNGS: Breath sounds equal, clear to auscultation bilaterally, no wheezes, no crackles HEART: RRR, no murmurs or rubs ABDOMEN: Soft, nontender, nondistended, normoactive bowel sounds, no guarding, no rebound, no masses. EXTREMITIES: 2+ pulses, warm, well-perfused, no edema. NEUROLOGICAL: Motor 3/5 on right, 5/5 on left. Sensations intact B/L SKIN: Warm, dry, normal turgor, eschar noted on rt hip, left knee Laboratory Results - last 24 hr 02/27/19 02/27/19 02/27/19 16:23 18:06 21:59 WBC RBC Hgb Hct MCV MCH MCHC RDW Plt Count MPV Absolute Neuts (auto) Neutrophils % Neutrophils % (Manual) Band Neutrophils % Lymphocytes % Lymphocytes % (Manual) Monocytes % Monocytes % (Manual) Eosinophils % Eosinophils % (Manual) Basophils % Basophils % (Manual) Myelocytes % (Man) Promyelocytes % (Man) Blast Cells % (Manual) Nucleated RBC % Metamyelocytes Hypochromia Platelet Estimate Polychromasia Poikilocytosis Anisocytosis Microcytosis Macrocytosis PTT (Actin FS) 115.5 H Sodium Potassium Chloride Carbon Dioxide Anion Gap BUN Creatinine Est GFR (CKD-EPI)AfAm Est GFR (CKD-EPI)NonAf POC Glucometer 108 137 Random Glucose Calcium Phosphorus Magnesium Total Bilirubin AST ALT Alkaline Phosphatase Creatine Kinase Total Protein Albumin 02/28/19 02/28/19 02/28/19 05:37 07:45 07:45 WBC 5.2 RBC 3.51 L Hgb 11.2 L Hct 31.8 L MCV 90.8 MCH 32.0 MCHC 35.2 RDW 13.1 Plt Count 224 MPV 9.4 Absolute Neuts (auto) 4.1 Neutrophils % 78.1 Neutrophils % (Manual) 73.5 Band Neutrophils % 0.0 Lymphocytes % 8.5 Lymphocytes % (Manual) 7.9 L D Monocytes % 7.9 Monocytes % (Manual) 3 L Eosinophils % 4.3 Eosinophils % (Manual) 6.9 H D Basophils % 1.2 Basophils % (Manual) 1.0 D Myelocytes % (Man) 3 H D Promyelocytes % (Man) 0 Blast Cells % (Manual) 0 Nucleated RBC % 0 Metamyelocytes 1 D Hypochromia 0 Platelet Estimate Normal Polychromasia 0 Poikilocytosis 0 Anisocytosis 0 Microcytosis 0 Macrocytosis 0 PTT (Actin FS) Sodium Cancelled Potassium Cancelled Chloride Cancelled Carbon Dioxide Cancelled Anion Gap Cancelled BUN Cancelled Creatinine Cancelled Est GFR (CKD-EPI)AfAm Cancelled Est GFR (CKD-EPI)NonAf Cancelled POC Glucometer 124 Random Glucose Cancelled Calcium Cancelled Phosphorus Cancelled Magnesium Cancelled Total Bilirubin Cancelled AST Cancelled ALT Cancelled Alkaline Phosphatase Cancelled Creatine Kinase Cancelled Total Protein Cancelled Albumin Cancelled 02/28/19 02/28/19 02/28/19 07:45 11:50 11:52 WBC RBC Hgb Hct MCV MCH MCHC RDW Plt Count MPV Absolute Neuts (auto) Neutrophils % Neutrophils % (Manual) Band Neutrophils % Lymphocytes % Lymphocytes % (Manual) Monocytes % Monocytes % (Manual) Eosinophils % Eosinophils % (Manual) Basophils % Basophils % (Manual) Myelocytes % (Man) Promyelocytes % (Man) Blast Cells % (Manual) Nucleated RBC % Metamyelocytes Hypochromia Platelet Estimate Polychromasia Poikilocytosis Anisocytosis Microcytosis Macrocytosis PTT (Actin FS) 33.4 Sodium 137 Potassium 3.9 Chloride 105 Carbon Dioxide 24 Anion Gap 8 BUN 43.0 H Creatinine 1.7 H Est GFR (CKD-EPI)AfAm 47.31 Est GFR (CKD-EPI)NonAf 40.82 POC Glucometer 137 Random Glucose 125 H Calcium 8.5 Phosphorus Magnesium Total Bilirubin 0.7 AST 22 ALT 32 Alkaline Phosphatase 65 Creatine Kinase Total Protein 5.1 L Albumin 1.8 L Active Medications Generic Name Dose Route Start Last Admin Trade Name Freq PRN Reason Stop Dose Admin Acetaminophen 1,000 mg 02/26/19 05:37 Ofirmev Injection - IVPB Q6H PRN FEVER Calcitriol 0.25 mcg 02/26/19 10:00 02/28/19 09:33 Rocaltrol - PO 0.25 mcg DAILY [facility] Administration Calcium Acetate 667 mg 02/26/19 08:00 02/28/19 14:11 Phoslo - PO 667 mg TIDCM [facility] Administration Clotrimazole 1 applic 02/26/19 10:00 02/27/19 21:52 Lotrimin 1% Cream - TP 1 applic BID [facility] Administration Collagenase 1 applic 02/25/19 15:15 02/27/19 10:18 Santyl - TP 1 applic DAILY [facility] Administration Protocol Diltiazem HCl 30 mg 02/26/19 06:00 02/28/19 14:11 Cardizem - PO 30 mg TID [facility] Administration Heparin Sodium (Porcine) 1,000 unit 02/26/19 15:34 Heparin - IVPUSH PRN PRN Heparin Heparin Sodium (Porcine) 5,000 unit 02/26/19 15:34 02/28/19 10:24 Heparin - IVPUSH 5,000 unit PRN PRN Administration Heparin Sodium Chloride 250 mls @ 3,000 mls/hr 02/26/19 05:37 Normal Saline - IV PRN PRN Hypotension during Dialysis Piperacillin Sod/Tazobactam 50 mls @ 100 mls/hr 02/26/19 10:00 02/28/19 09:33 Sod 2.25 gm/ Dextrose IVPB 100 mls/hr Q8H-IV [facility] Administration Protocol Heparin Sodium (Porcine) 25, 500 mls @ 20 mls/hr 02/26/19 16:30 02/27/19 18: 40 000 unit/ Sodium Chloride IV 1,150 unit/hr TITR [facility] 23 mls/hr Administration Protocol 1,000 UNIT/HR Insulin Aspart 1 vial 02/26/19 07:00 02/28/19 11:55 Novolog Vial Sliding Scale - SQ Not Given ACHS [facility] Protocol Lamotrigine 100 mg 02/26/19 10:00 02/28/19 09:34 Lamictal - PO 100 mg DAILY [facility] Administration Losartan Potassium 50 mg 02/28/19 12:00 02/28/19 14:11 Cozaar - PO 50 mg DAILY [facility] Administration Pantoprazole Sodium 40 mg 02/26/19 10:00 02/28/19 09:33 Protonix Iv IVPUSH 40 mg BID [facility] Administration Tramadol HCl 50 mg 02/28/19 10:49 Ultram - PO Q6H PRN PAIN LEVEL 7 - 10 ASSESSMENT/PLAN: 68 M with PMH of DM, HTN, HLD, CKD, obesity, bipolar disorder, depression, and anxiety, who was brought to ED after being found down on the floor by brother with AMS. 1) AMS -Likely a toxic metabolic encephalopathy from uremia or electrolyte abnormalities or DKA. Has no recollection of what occurred before admission. -F/U MRI pending MRI Screening questionnaire. -CT head negative -F/U repeat CT Head negative for bleeds -Urine culture negative -Sliding scale insulin -Endocrinology consulted, appreciate recs -Neurology consulted, appreciate recs 2) SMITA -No more hemodialysis required. -Rhabdomyolysis resolved -Renal U/S unremarkable -Nephrology consulted, appreciate recs 3)Coffee ground emesis -Upper ENdoscopy next week. -Patient cleared by cardiology. 4) Pneumonia -CT Abdomen shows extensive bilateral lower lobe consolidation, right > left. -Zoysn 2.25 gram IV Q8H -ID consulted, appreciate recs -Legionella negative. 5)New onset Afib -Cardizem PO 30 mg TID PRN -On Heparin Drip -Cardiology consulted, appreciate recs -Echo shows normal EF -Normal sinus now 6) Wounds on lower chest, upper abdomen, hip -S/P Debridement. -Wet to dry dressing 7)History of Bipolar disorder -Holding home meds 8) Chronic pain in legs -Unable to confirm dose of Lyrica -Ultram 50 mg PO Q6H PRN Dispo: Medicine Floors F:Oral Hydration E: Trend CMP. Replete as needed N: Soft diet Visit type - Emergency Visit Emergency Visit: Yes ED Registration Date: 02/16/19 Care time: The patient presented to the Emergency Department on the above date and was hospitalized for further evaluation of their emergent condition. - New Patient This patient is new to me today: No - Critical Care Critical Care patient: No ATTENDING PHYSICIAN STATEMENT I saw and evaluated the patient. I reviewed the resident's note and discussed the case with the resident. I agree with the resident's findings and plan as documented. SUBJECTIVE: OBJECTIVE: ASSESSMENT AND PLAN:
--- NOTE | 2019-02-28 17:39 | PN ---
Progress Note, Physician History of Present Illness: AWAKE, ALERT NO COMPLAINTS BREATHING NON LABORED AFEBRILE WBC IMPROVED WNL BC (-) SPUTUM NORMAL VERONICA LEGIONELLA AG (-) - Current Medication List Current Medications: Active Medications Acetaminophen (Ofirmev Injection -) 1,000 mg IVPB Q6H PRN PRN Reason: FEVER Calcitriol (Rocaltrol -) 0.25 mcg PO DAILY [facility] Last Admin: 02/28/19 09:33 Dose: 0.25 mcg Calcium Acetate (Phoslo -) 667 mg PO TIDCM [facility] Last Admin: 02/28/19 16:42 Dose: 667 mg Clotrimazole (Lotrimin 1% Cream -) 1 applic TP BID [facility] Last Admin: 02/28/19 10:00 Dose: 1 applic Collagenase (Santyl -) 1 applic TP DAILY [facility]; Protocol Last Admin: 02/28/19 10:00 Dose: 1 applic Diltiazem HCl (Cardizem -) 30 mg PO TID [facility] Last Admin: 02/28/19 14:11 Dose: 30 mg Heparin Sodium (Porcine) (Heparin -) 1,000 unit IVPUSH PRN PRN PRN Reason: Heparin Heparin Sodium (Porcine) (Heparin -) 5,000 unit IVPUSH PRN PRN PRN Reason: Heparin Last Admin: 02/28/19 10:24 Dose: 5,000 unit Sodium Chloride (Normal Saline -) 250 mls @ 3,000 mls/hr IV PRN PRN PRN Reason: Hypotension during Dialysis Piperacillin Sod/Tazobactam (Sod 2.25 gm/ Dextrose) 50 mls @ 100 mls/hr IVPB Q8H-IV [facility]; Protocol Last Admin: 02/28/19 17:12 Dose: 100 mls/hr Heparin Sodium (Porcine) 25, (000 unit/ Sodium Chloride) 500 mls @ 20 mls/hr IV TITR [facility]; Protocol Last Admin: 02/28/19 10:30 Dose: 1,150 unit/hr, 23 mls/hr Insulin Aspart (Novolog Vial Sliding Scale -) 1 vial SQ ACHS [facility]; Protocol Last Admin: 02/28/19 16:41 Dose: Not Given Lamotrigine (Lamictal -) 100 mg PO DAILY [facility] Last Admin: 02/28/19 09:34 Dose: 100 mg Losartan Potassium (Cozaar -) 50 mg PO DAILY [facility] Last Admin: 02/28/19 14:11 Dose: 50 mg Pantoprazole Sodium (Protonix Iv) 40 mg IVPUSH BID [facility] Last Admin: 02/28/19 09:33 Dose: 40 mg Tramadol HCl (Ultram -) 50 mg PO Q6H PRN PRN Reason: PAIN LEVEL 7 - 10 - Objective Vital Signs: Vital Signs Temperature 98.3 F 02/28/19 15:31 Pulse Rate 72 02/28/19 15:31 Respiratory Rate 18 02/28/19 15:31 Blood Pressure 151/73 02/28/19 15:31 O2 Sat by Pulse Oximetry (%) 97 02/27/19 21:00 Constitutional: Yes: No Distress Eyes: Yes: Conjunctiva Clear Cardiovascular: Yes: Regular Rate and Rhythm, S1, S2 Respiratory: Yes: Diminished Gastrointestinal: Yes: Normal Bowel Sounds, Soft. No: Tenderness Edema: Yes Labs: CBC, BMP 02/28/19 07:45 02/28/19 11:50 INR, PTT INR 1.21 (0.83-1.09) H 02/26/19 10:25 Assessment/Plan RESPIRATORY FAILURE S/P EXTUBATION PNEUMONIA ?CVA LEUKOCYTOSIS RESOLVED RENAL FAILURE D/C ZOSYN AUGMENTIN 500MG PO QD X 3D
--- NOTE | 2019-02-28 18:58 | PATH ---
Surgical Pathology Report Patient Name: JORDANA MALONE [facility]. Rec. #: [id number] /Age/Gender: 1950 (Age: 68) / M Account: [id number] Location: [address] [place] [address]/[facility] Taken: 02/25/2019 Received: 02/26/2019 Reported: 02/28/2019 Physicians: Derek Loredo M.D. Specimen(s) Received A: DEBRIDED LEFT KNEE B: DEBRIDED RIGHT HIP Clinical History Wound to left knee and right hip Final Diagnosis A. DEBRIDED TISSUE LEFT KNEE, DEBRIDEMENT: SKIN AND SUBCUTANEOUS TISSUE SHOWING GANGRENOUS NECROSIS AND ABSCESS FORMATION WITH FOCAL EPITHELIAL REACTIVE CHANGE. B. DEBRIDED TISSUE RIGHT HIP, DEBRIDEMENT: FIBROADIPOSE TISSUE WITH GANGRENOUS NECROSIS AND ABSCESS FORMATION. Electronically Signed Manjula Navarro M.D. Gross Description A. Received in formalin labeled "debrided tissue left knee," is an 8.5 x 4.0 x 0.2 cm lindo black, necrotic skin shave. [employer] Assurance Analyst sections are submitted in one cassette. B. Received in formalin labeled "debrided tissue right hip," are multiple brown-black, necrotic skin shaves measuring 5.5 x 5.0 x 0.2 cm in aggregate. Business Quality Assurance Analyst sections are submitted in one cassette. /02/26/201902/26/2019
[2019-03-01] MEDS: HEPARIN NA (PORCINE) 5,000 UNITS/ML 1ML VIAL IVPUSH PRN (01:54)
[2019-03-01] MEDS: dilTIAZem HCL 30 MG TABLET (FP) PO SCH ×3 (05:19→21:28)
[2019-03-01] MEDS: INSULIN SLIDING SCALE (NOVOLOG) 1 VIAL SQ SCH ×4 (06:28→21:29)
[2019-03-01] MEDS ORDERED: PT OWN MED DRAWER 7, Y5N ONE (08:20)
[2019-03-01] MEDS: CALCIUM ACETATE 667 MG CAPSULE (FP) PO SCH ×3 (08:22→17:47)
[2019-03-01 09:07] LABS: BASO % 0.9 % (0-2.0); EOS % 3.3 % (0-4.5); HEMATOCRIT 33.7 % (35.4-49); HEMOGLOBIN 11.4 GM/dL (11.7-16.9); LYMPH % 7.1 % (8-40); MCH 30.9 pg (25.7-33.7); MCHC 33.8 g/dl (32.0-35.9); MEAN CELL VOLUME 91.4 fl (80-96); MEAN PLT VOLUME 9.2 fl (7.5-11.1); MONO % 7.6 % (3.8-10.2); NEUT % 81.1 % (42.8-82.8); PLATELET COUNT 254 K/MM3 (134-434); RBC 3.68 M/mm3 (4.00-5.60); RDW 13.3 % (11.9-15.9); WHITE BLOOD COUNT 5.6 K/mm3 (4.0-10.0)
[2019-03-01 09:29] LABS: BLOOD UREA NITROGEN 35.8 mg/dL (7-18); CALCIUM 9.3 mg/dL (8.5-10.1); CREATININE 1.6 mg/dL (0.55-1.3)
[2019-03-01] MEDS: CALCITRIOL 0.25 MCG CAPSULE (FP) PO SCH (10:02)
[2019-03-01] MEDS: AMOX TR/POT CLAV 500MG/125MG TABLETS (FP) PO SCH (10:02)
[2019-03-01] MEDS: LOSARTAN POTASSIUM 50 MG TABLET (FP) PO SCH (10:02)
[2019-03-01] MEDS: lamoTRIgine 100 MG TABLET (FP) PO SCH (10:03)
[2019-03-01] MEDS: CLOTRIMAZOLE 1% CREAM 15 GM TUBE TP SCH ×2 (10:04→21:30)
[2019-03-01] MEDS: PANTOPRAZOLE SODIUM 40 MG VIAL IVPUSH SCH ×2 (10:04→21:28)
[2019-03-01] MEDS: COLLAGENASE CLOSTRIDIUM HIST. 30 GRAMS TUBE TP SCH (10:05)
[2019-03-01] MEDS ORDERED: INSULIN (NOVOLOG) ASPART 100 UNITS/ML 10ML VIAL ONE ×2 (11:11→21:02)
[2019-03-01 11:17] LABS: PLATELET ESTIMATE NORMAL
[2019-03-01] MEDS: HEPARIN - 25,000 UNIT in SODIUM CHLORIDE 495 ML IV SCH (14:06)
--- NOTE | 2019-03-01 14:38 | PN ---
Progress Note, Physician History of Present Illness: POD #4 s/p Excisional debridement left knee and right hip - skin, subcutaneous tissue. No further hematemesis. SMITA improving off HD, making urine now. Hgb stable, EGD to be scheduled. - Current Medication List Current Medications: Active Medications Acetaminophen (Ofirmev Injection -) 1,000 mg IVPB Q6H PRN PRN Reason: FEVER Amoxicillin/Clavulanate Potassium (Augmentin - 500mg Tablet) 1 tab PO DAILY@ 0800 [facility] Last Admin: 03/01/19 10:02 Dose: 1 tab Calcitriol (Rocaltrol -) 0.25 mcg PO DAILY [facility] Last Admin: 03/01/19 10:02 Dose: 0.25 mcg Calcium Acetate (Phoslo -) 667 mg PO TIDCM [facility] Last Admin: 03/01/19 11:20 Dose: 667 mg Clotrimazole (Lotrimin 1% Cream -) 1 applic TP BID [facility] Last Admin: 03/01/19 10:04 Dose: Not Given Collagenase (Santyl -) 1 applic TP DAILY [facility]; Protocol Last Admin: 03/01/19 10:05 Dose: Not Given Diltiazem HCl (Cardizem -) 30 mg PO TID [facility] Last Admin: 03/01/19 14:04 Dose: 30 mg Heparin Sodium (Porcine) (Heparin -) 1,000 unit IVPUSH PRN PRN PRN Reason: Heparin Last Admin: 03/01/19 01:54 Dose: 1,000 unit Heparin Sodium (Porcine) (Heparin -) 5,000 unit IVPUSH PRN PRN PRN Reason: Heparin Last Admin: 02/28/19 10:24 Dose: 5,000 unit Sodium Chloride (Normal Saline -) 250 mls @ 3,000 mls/hr IV PRN PRN PRN Reason: Hypotension during Dialysis Heparin Sodium (Porcine) 25, (000 unit/ Sodium Chloride) 500 mls @ 20 mls/hr IV TITR [facility]; Protocol Last Admin: 03/01/19 14:06 Dose: 1,350 unit/hr, 27 mls/hr Insulin Aspart (Novolog Vial Sliding Scale -) 1 vial SQ ACHS [facility]; Protocol Last Admin: 03/01/19 11:25 Dose: Not Given Lamotrigine (Lamictal -) 100 mg PO DAILY [facility] Last Admin: 03/01/19 10:03 Dose: 100 mg Losartan Potassium (Cozaar -) 50 mg PO DAILY [facility] Last Admin: 03/01/19 10:02 Dose: 50 mg Pantoprazole Sodium (Protonix Iv) 40 mg IVPUSH BID [facility] Last Admin: 03/01/19 10:04 Dose: 40 mg Tramadol HCl (Ultram -) 50 mg PO Q6H PRN PRN Reason: PAIN LEVEL 7 - 10 - Objective Vital Signs: Vital Signs Temperature 98.1 F 03/01/19 03:00 Pulse Rate 87 03/01/19 03:00 Respiratory Rate 18 03/01/19 03:00 Blood Pressure 155/60 03/01/19 03:00 O2 Sat by Pulse Oximetry (%) 97 02/28/19 21:00 Constitutional: Yes: No Distress, Calm Neck: Yes: Supple Cardiovascular: Yes: Regular Rate and Rhythm Respiratory: Yes: Regular, Diminished Gastrointestinal: Yes: Normal Bowel Sounds, Soft Edema: No Labs: CBC, BMP 03/01/19 07:50 03/01/19 07:50 INR, PTT INR 1.21 (0.83-1.09) H 02/26/19 10:25 Problem List - Problems (1) Paroxysmal atrial fibrillation with rapid ventricular response Code(s): I48.0 - PAROXYSMAL ATRIAL FIBRILLATION Assessment/Plan 02/17/2019 Echo: Normal LV size with mild cLVH, LVEF 60-65%, normal LA size, mild ao 4.0 cm 02/25/2019 Brain MRI: No acute or subacute stroke Problem List - Problems (1) HTN (hypertension) Code(s): I10 - ESSENTIAL (PRIMARY) HYPERTENSION (2) Hypercholesterolemia Code(s): E78.00 - PURE HYPERCHOLESTEROLEMIA, UNSPECIFIED (3) Bipolar disorder Code(s): F31.9 - BIPOLAR DISORDER, UNSPECIFIED (5) Renal failure Code(s): N19 - UNSPECIFIED KIDNEY FAILURE (6) Rhabdomyolysis Code(s): M62.82 - RHABDOMYOLYSIS Assessment/Plan 1. Questionable syncope, altered mental status 2. s/p acute respiratory failure 3. Coronary artery disease/visual coronary artery calcification angina pectoris 4. Diastolic LV dysfunction with clinical class 0 NYHA classification LV failure 5. PAF currently in sinus rhythm [id number] score of either 2-3 currently on no A/C recent coffee ground emesis/GI bleed 6. History of HTN 7. Hypercholesterolemia 8. Acute on CKD requiring HD resolving 9. Bipolar disorder, depression and anxiety 10. History of coffee ground emesis resolved etiology unclear 11. Rhabdomyolysis resolved PLAN: 1. Heparin gtt->Eliquis on protonix pending EGD, as hemostasis has been achieved 2. Monitor renal recovery off HD per renal service 3. Continue Cardizem 30 tid, losartan 50 qd 4. Completing oral antibiotics coverage 5. May proceed with EGD from CV-standpoint
[2019-03-01] MEDS: traMADol HCL 50 MG TABLET PO PRN ×2 (15:00→22:12)
--- NOTE | 2019-03-01 17:14 | PN ---
Progress Note (short form) - Note Progress Note: SUBJECTIVE: Feels well, no complaints s/p extubation 02/23. More alert and oriented. No further coffee ground emesis. POD 4 s/p wound debridement L knee, R hip. No fever/pain. no SOB/cough/sputum/hemoptysis. OBJECTIVE: Afebrile, Hemodynamically stable. Extubated 02/23. Off Propofol and Levophed. AAO x 2. SpO2 97% on 3L via NC. Last Vital Signs Temp Pulse Resp BP Pulse Ox 98.3 F 107 H 18 154/84 95 03/01/19 14:42 03/01/19 14:42 03/01/19 14:42 03/01/19 14:42 03/01/19 09:00 Heart - S1, S2, RRR Lungs - good air entry bilaterally. Few basal crackles. Abdomen - Soft, non-tender. R sided abdominal wall wound without surrounding cellulitis. Extremities - mild edema. Ulcer wound to inner aspect L knee and R hip dressed s /p surgical debridement 02/25, no surrounding erythema. Neuro - WILLARD. Moving extremities, Decreased Power on R - RUE 3/5, RLE 4/5 Laboratory Results - last 24 hr 02/28/19 02/28/19 03/01/19 17:10 21:08 00:35 WBC RBC Hgb Hct MCV MCH MCHC RDW Plt Count MPV Absolute Neuts (auto) Neutrophils % Neutrophils % (Manual) Band Neutrophils % Lymphocytes % Lymphocytes % (Manual) Monocytes % Monocytes % (Manual) Eosinophils % Eosinophils % (Manual) Basophils % Basophils % (Manual) Myelocytes % (Man) Promyelocytes % (Man) Blast Cells % (Manual) Nucleated RBC % Metamyelocytes Hypochromia Platelet Estimate PTT (Actin FS) 42.6 H 41.0 H Sodium Potassium Chloride Carbon Dioxide Anion Gap BUN Creatinine Est GFR (CKD-EPI)AfAm Est GFR (CKD-EPI)NonAf POC Glucometer 119 Random Glucose Calcium Creatine Kinase 03/01/19 03/01/19 03/01/19 05:54 07:50 07:50 WBC 5.6 RBC 3.68 L Hgb 11.4 L Hct 33.7 L MCV 91.4 MCH 30.9 MCHC 33.8 RDW 13.3 Plt Count 254 MPV 9.2 Absolute Neuts (auto) 4.6 Neutrophils % 81.1 Neutrophils % (Manual) 85.9 H Band Neutrophils % 0.0 Lymphocytes % 7.1 L Lymphocytes % (Manual) 9.1 Monocytes % 7.6 Monocytes % (Manual) 0 L D Eosinophils % 3.3 Eosinophils % (Manual) 3.0 Basophils % 0.9 Basophils % (Manual) 1.0 Myelocytes % (Man) 0 D Promyelocytes % (Man) 0 Blast Cells % (Manual) 0 Nucleated RBC % 0 Metamyelocytes 0 D Hypochromia 1+ Platelet Estimate Normal PTT (Actin FS) Sodium 137 Potassium 4.0 Chloride 104 Carbon Dioxide 23 Anion Gap 9 BUN 35.8 H Creatinine 1.6 H Est GFR (CKD-EPI)AfAm 50.91 Est GFR (CKD-EPI)NonAf 43.93 POC Glucometer 123 Random Glucose 113 H Calcium 9.3 Creatine Kinase 33 03/01/19 03/01/19 07:50 11:22 WBC RBC Hgb Hct MCV MCH MCHC RDW Plt Count MPV Absolute Neuts (auto) Neutrophils % Neutrophils % (Manual) Band Neutrophils % Lymphocytes % Lymphocytes % (Manual) Monocytes % Monocytes % (Manual) Eosinophils % Eosinophils % (Manual) Basophils % Basophils % (Manual) Myelocytes % (Man) Promyelocytes % (Man) Blast Cells % (Manual) Nucleated RBC % Metamyelocytes Hypochromia Platelet Estimate PTT (Actin FS) 51.7 H Sodium Potassium Chloride Carbon Dioxide Anion Gap BUN Creatinine Est GFR (CKD-EPI)AfAm Est GFR (CKD-EPI)NonAf POC Glucometer 126 Random Glucose Calcium Creatine Kinase Current Medications Generic Name Dose Route Start Last Admin Trade Name Rufina PRN Reason Stop Dose Admin Amoxicillin/Clavulanate Potassium 1 tab 03/01/19 08:00 03/01/19 10:02 Augmentin - 500mg Tablet PO 1 tab DAILY@0800 TAVARES Administration Calcitriol 0.25 mcg 02/26/19 10:00 03/01/19 10:02 Rocaltrol - PO 0.25 mcg DAILY TAVARES Administration Calcium Acetate 667 mg 02/26/19 08:00 03/01/19 11:20 Phoslo - PO 667 mg TIDCM TAVARES Administration Clotrimazole 1 applic 02/26/19 10:00 03/01/19 10:04 Lotrimin 1% Cream - TP Not Given BID TAVARES Collagenase 1 applic 02/25/19 15:15 03/01/19 10:05 Santyl - TP Not Given DAILY [facility] Protocol Diltiazem HCl 30 mg 02/26/19 06:00 03/01/19 14:04 Cardizem - PO 30 mg TID TAVARES Administration Heparin Sodium (Porcine) 1,000 unit 02/26/19 15:34 03/01/19 01:54 Heparin - IVPUSH 1,000 unit PRN PRN Administration Heparin Heparin Sodium (Porcine) 5,000 unit 02/26/19 15:34 02/28/19 10:24 Heparin - IVPUSH 5,000 unit PRN PRN Administration Heparin Sodium Chloride 250 mls @ 3,000 mls/hr 02/26/19 05:37 Normal Saline - IV PRN PRN Hypotension during Dialysis Heparin Sodium (Porcine) 25, 500 mls @ 20 mls/hr 02/26/19 16:30 03/01/19 14: 06 000 unit/ Sodium Chloride IV 1,350 unit/hr TITR TAVARES 27 mls/hr Administration Protocol 1,000 UNIT/HR Insulin Aspart 1 vial 02/26/19 07:00 03/01/19 11:25 Novolog Vial Sliding Scale - SQ Not Given ACHS [facility] Protocol Lamotrigine 100 mg 02/26/19 10:00 03/01/19 10:03 Lamictal - PO 100 mg DAILY TAVARES Administration Losartan Potassium 50 mg 02/28/19 12:00 03/01/19 10:02 Cozaar - PO 50 mg DAILY TAVARES Administration Pantoprazole Sodium 40 mg 02/26/19 10:00 03/01/19 10:04 Protonix Iv IVPUSH 40 mg BID TAVARES Administration Tramadol HCl 50 mg 02/28/19 10:49 03/01/19 15:00 Ultram - PO 50 mg Q6H PRN Administration PAIN LEVEL 7 - 10 Home Medications Medication Instructions Recorded Allopurinol [Zyloprim -] 200 mg DAILY 02/17/19 Amlodipine Besylate 10 mg PO DAILY 02/17/19 Diazepam [Valium] 10 mg PO TID 02/17/19 Insulin Aspart [Novolog] 2 units TID 02/17/19 Insulin Glargine,Hum.rec.anlog 95 unit HS 02/17/19 [Young Griffith] Lamotrigine 100 mg DAILY 02/17/19 Losartan/Hydrochlorothiazide 1 tablet DAILY 02/17/19 [Losartan-Hctz 100-12.5 mg Tab] Quetiapine Fumarate [Seroquel -] 200 mg PO HS 02/17/19 Fenofibrate 40 mg PO DAILY 02/26/19 Fluvastatin Sodium [Fluvastatin ER] 80 mg PO PRN 02/26/19 Pregabalin [Lyrica -] 02/26/19 Tramadol HCl 50 mg PO PRN 02/26/19 ASSESSMENT/PLAN: 68 year old male with history of DM 2, HTN, HLD, CKD 3, Obesity, Bipolar Disorder, Depression, Anxiety, lives alone, found on floor of his house by his brother, noted to have SMITA, DKA, Multiple electrolyte abnormalities, AMS. 1. Acute Hypercapneic Respiratory Failure and Septic Shock, secondary to bilateral Pneumonia, likely Aspiration - resolving. Intubated, Extubated 02/23/19. Continue to wean off O2. CT C/A/P - bilateral consolidation. Leukocytosis resolved. Sputum Cx - normal yulissa. Urine legionella Ag negative. IV Zosyn transitioned to Augmenting by ID for 3 additional days. 2. Syncope/Fall with LOC and Acute Encephalopathy (secondary to Uremia vs Hypernatremia vs Acidosis) Initially recovered mental status after adequate hydration and electrolyte replacement, but then became unresponsive in respiratory distress requiring intubation. Initial CT Head negative for acute findings, repeat CT shows no interval change. No telemonitoring events. Echo - normal EF, small pericardial effusion, no signs of tamponade. MRI Brain - age related changes, no acute intracranial findings. 3. Upper GI Bleed. Coffee-ground material noticed in NG tube while intubated, now cleared, no further coffee ground emesis episodes. IV PPI BID. H/H stable. He was scheduled for EGD 02/26 but this was cancelled apparently due to his "breathing". Respiratory status appears stable, CXR shows improved aeration, with improvement in respiratory status, currently being weaned off supplemental O2. Further management as per GI. Speech eval and diet recommendations appreciated. Pulm/Cardio asked to "clear" for EGD on request of GI. 4. Atrial Fibrillation with RVR - resolved. HR controlled on oral Cardizem. Heparin drip resumed pending EGD. Mode of AC to be determined after EGD. 5. 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 Renal US - no obstruction. HD catheter blocked during HD 02/21 - s/p RIJ replacement of HD catheter. Renal function improving - may not require any further HD as per Nephrology, will monitor. 5. Hypernatremia sec to dehydration - improved with HD 6. Hypokalemia/Hypocalcemia - repleted/resolved. Started on Calcitriol and Calcium supplementation. 7. DKA - resolved. Insulin drip discontinued. Endocrine following - once oral intake picks up may need to add Levemir 10 units. 8. Bipolar Disorder - normally on Seroquel, Lamictal, Diazepam. 9. HTN - Norvasc, Losartan, HCTZ held due to shock. BP creeping up. Resumed on Losartan. Will add Norvasc if BP remains uncontrolled. 10. Wounds R abdominal wall, R Hip and L knee with eschar ?sec to fall/carpet burn, multiple decubitus ulcers buttocks and R hip - no surrounding erythema/ infection. POD 4 s/p wound debridement in OR. Wounds dressed - wound care to follow. DVT Px - On Heparin drip. AC decisions to be made s/p EGD GI Px - PPI IV Visit type - Emergency Visit Emergency Visit: Yes ED Registration Date: 02/16/19 Care time: The patient presented to the Emergency Department on the above date and was hospitalized for further evaluation of their emergent condition. - New Patient This patient is new to me today: No - Critical Care Critical Care patient: No - Discharge Referral Referred to [facility] Med [facility] No
--- NOTE | 2019-03-01 18:59 | PN.GI ---
GI Progress Note - Objective Vital Signs: Vital Signs Temperature 98.3 F 03/01/19 14:42 Pulse Rate 107 H 03/01/19 14:42 Respiratory Rate 18 03/01/19 14:42 Blood Pressure 154/84 03/01/19 14:42 O2 Sat by Pulse Oximetry (%) 95 03/01/19 09:00 Labs: CBC, BMP 03/01/19 07:50 03/01/19 07:50 INR, PTT INR 1.21 (0.83-1.09) H 02/26/19 10:25 Problem List - Problems (1) Coffee ground emesis Code(s): K92.0 - HEMATEMESIS
[2019-03-02] MEDS: dilTIAZem HCL 30 MG TABLET (FP) PO SCH ×3 (06:20→21:19)
[2019-03-02] MEDS: INSULIN SLIDING SCALE (NOVOLOG) 1 VIAL SQ SCH ×4 (06:20→21:19)
[2019-03-02 07:15] LABS: INR 1.14 (0.83-1.09); PROTHROMBIN TIME (PATIENT) 13.5 SEC (9.7-13.0)
[2019-03-02 07:18] LABS: ACTIVATED PTT 29.6 SECONDS (25.2-36.5)
[2019-03-02] MEDS ORDERED: PT OWN MED DRAWER 7, Y5N ONE ×2 (07:46→18:49)
[2019-03-02] MEDS: AMOX TR/POT CLAV 500MG/125MG TABLETS (FP) PO SCH (07:53)
[2019-03-02] MEDS: CALCIUM ACETATE 667 MG CAPSULE (FP) PO SCH ×3 (07:53→18:42)
[2019-03-02] MEDS: CALCITRIOL 0.25 MCG CAPSULE (FP) PO SCH (11:03)
[2019-03-02] MEDS: LOSARTAN POTASSIUM 50 MG TABLET (FP) PO SCH (11:04)
[2019-03-02] MEDS: traMADol HCL 50 MG TABLET PO PRN ×2 (11:04→18:13)
[2019-03-02] MEDS: lamoTRIgine 100 MG TABLET (FP) PO SCH (11:04)
[2019-03-02] MEDS: CLOTRIMAZOLE 1% CREAM 15 GM TUBE TP SCH ×2 (11:05→21:19)
[2019-03-02] MEDS: COLLAGENASE CLOSTRIDIUM HIST. 30 GRAMS TUBE TP SCH (11:05)
[2019-03-02] MEDS: PANTOPRAZOLE SODIUM 40 MG VIAL IVPUSH SCH ×2 (11:06→21:20)
[2019-03-02] MEDS: HEPARIN NA (PORCINE) 5,000 UNITS/ML 1ML VIAL IVPUSH PRN (12:13)
--- NOTE | 2019-03-02 14:06 | PN ---
Teaching Attending Note Name of Resident: Eb Harding ATTENDING PHYSICIAN STATEMENT I saw and evaluated the patient. I reviewed the resident's note and discussed the case with the resident. I agree with the resident's findings and plan as documented. SUBJECTIVE: Feels well, complains of some discomfort due to decubitus wounds. s /p extubation 02/23. More alert and oriented. No further coffee ground emesis. POD 5 s/p wound debridement L knee, R hip. No fever/pain. no SOB/cough/sputum/ hemoptysis. OBJECTIVE: Afebrile, Hemodynamically stable. Extubated 02/23. Off Propofol and Levophed. AAO x 2-3. SpO2 96% on RA Last Vital Signs Temp Pulse Resp BP Pulse Ox 98.6 F 86 18 159/94 96 03/01/19 20:00 03/02/19 06:14 03/01/19 21:00 03/02/19 06:14 03/01/19 21:00 Heart - S1, S2, RRR Lungs - good air entry bilaterally. Few basal crackles. Abdomen - Soft, non-tender. R sided abdominal wall wound without surrounding cellulitis. Extremities - Edema resolved. Ulcer wound to inner aspect L knee and R hip dressed s/p surgical debridement 02/25, no surrounding erythema. Neuro - WILLARD. Moving extremities, Decreased Power on R - RUE 3/5, RLE 4/5 Laboratory Results - last 24 hr 03/01/19 03/01/19 03/02/19 17:28 21:26 06:10 PT with INR 13.50 H INR 1.14 H PTT (Actin FS) 29.6 POC Glucometer 139 148 03/02/19 03/02/19 06:19 11:10 PT with INR INR PTT (Actin FS) POC Glucometer 133 123 Current Medications Generic Name Dose Route Start Last Admin Trade Name Freq PRN Reason Stop Dose Admin Amoxicillin/Clavulanate Potassium 1 tab 03/01/19 08:00 03/02/19 07:53 Augmentin - 500mg Tablet PO 1 tab DAILY@0800 TAVARES Administration Calcitriol 0.25 mcg 02/26/19 10:00 03/02/19 11:03 Rocaltrol - PO 0.25 mcg DAILY TAVARES Administration Calcium Acetate 667 mg 02/26/19 08:00 03/02/19 11:03 Phoslo - PO 667 mg TIDCM TAVARES Administration Clotrimazole 1 applic 02/26/19 10:00 03/02/19 11:05 Lotrimin 1% Cream - TP 1 applic BID TAVARES Administration Collagenase 1 applic 02/25/19 15:15 03/02/19 11:05 Santyl - TP 1 applic DAILY TAVARES Administration Protocol Diltiazem HCl 30 mg 02/26/19 06:00 03/02/19 06:20 Cardizem - PO 30 mg TID TAVARES Administration Heparin Sodium (Porcine) 1,000 unit 02/26/19 15:34 03/01/19 01:54 Heparin - IVPUSH 1,000 unit PRN PRN Administration Heparin Heparin Sodium (Porcine) 5,000 unit 02/26/19 15:34 03/02/19 12:13 Heparin - IVPUSH 5,000 unit PRN PRN Administration Heparin Sodium Chloride 250 mls @ 3,000 mls/hr 02/26/19 05:37 Normal Saline - IV PRN PRN Hypotension during Dialysis Heparin Sodium (Porcine) 25, 500 mls @ 20 mls/hr 02/26/19 16:30 03/02/19 12: 13 000 unit/ Sodium Chloride IV 1,500 unit/hr TITR TAVARES 30 mls/hr Titration Protocol 1,000 UNIT/HR Insulin Aspart 1 vial 02/26/19 07:00 03/02/19 11:32 Novolog Vial Sliding Scale - SQ Not Given ACHS [facility] Protocol Lamotrigine 100 mg 02/26/19 10:00 03/02/19 11:04 Lamictal - PO 100 mg DAILY TAVARES Administration Losartan Potassium 50 mg 02/28/19 12:00 03/02/19 11:04 Cozaar - PO 50 mg DAILY TAVARES Administration Pantoprazole Sodium 40 mg 02/26/19 10:00 03/02/19 11:06 Protonix Iv IVPUSH 40 mg BID TAVARES Administration Tramadol HCl 100 mg 03/02/19 10:08 03/02/19 11:04 Ultram - PO 100 mg Q6H PRN Administration PAIN LEVEL 7 - 10 Home Medications Medication Instructions Recorded Allopurinol [Zyloprim -] 200 mg DAILY 02/17/19 Amlodipine Besylate 10 mg PO DAILY 02/17/19 Diazepam [Valium] 10 mg PO TID 02/17/19 Insulin Aspart [Novolog] 2 units TID 02/17/19 Insulin Glargine,Hum.rec.anlog 95 unit HS 02/17/19 [Toumelisa Gozevar] Lamotrigine 100 mg DAILY 02/17/19 Losartan/Hydrochlorothiazide 1 tablet DAILY 02/17/19 [Losartan-Hctz 100-12.5 mg Tab] Quetiapine Fumarate [Seroquel -] 200 mg PO HS 02/17/19 Fenofibrate 40 mg PO DAILY 02/26/19 Fluvastatin Sodium [Fluvastatin ER] 80 mg PO PRN 02/26/19 Pregabalin [Lyrica -] 02/26/19 Tramadol HCl 50 mg PO PRN 02/26/19 Atorvastatin Calcium 80 mg PO 03/02/19 Duloxetine HCl [Cymbalta -] 60 mg PO DAILY 03/02/19 Liraglutide [Victoza -] 18 mg SQ 03/02/19 Niacin (Inositol Niacinate) 500 mg PO 03/02/19 [Niacin 500 mg Capsule] [place]-3 Acid Ethyl Esters [Lovaza 4,000 mg PO DAILY 03/02/19 -] ASSESSMENT/PLAN: 68 year old male with history of DM 2, HTN, HLD, CKD 3, Obesity, Bipolar Disorder, Depression, Anxiety, lives alone, found on floor of his house by his brother, noted to have SMITA, DKA, Multiple electrolyte abnormalities, AMS. 1. Acute Hypercapneic Respiratory Failure and Septic Shock, secondary to bilateral Pneumonia, likely Aspiration - resolving. Intubated, Extubated 02/23/19. Continue to wean off O2. CT C/A/P - bilateral consolidation. Leukocytosis resolved. Sputum Cx - normal yulissa. Urine legionella Ag negative. IV Zosyn transitioned to Augmentin by ID for 3 additional days. 2. Syncope/Fall with LOC and Acute Encephalopathy (secondary to Uremia vs Hypernatremia vs Acidosis) Initially recovered mental status after adequate hydration and electrolyte replacement, but then became unresponsive in respiratory distress requiring intubation. Initial CT Head negative for acute findings, repeat CT shows no interval change. No telemonitoring events. Echo - normal EF, small pericardial effusion, no signs of tamponade. MRI Brain - age related changes, no acute intracranial findings. PT, will likely need placement. 3. Upper GI Bleed. Coffee-ground material noticed in NG tube while intubated, now cleared, no further coffee ground emesis episodes. IV PPI BID. H/H stable. He was scheduled for EGD 02/26 but this was cancelled apparently due to his "breathing". Respiratory status appears stable, CXR shows improved aeration, with improvement in respiratory status, currently successfully weaned off supplemental O2, SpO2 96% RA. Further management as per GI. Speech eval and diet recommendations appreciated. NPO MN for EGD in AM. 4. Atrial Fibrillation with RVR - resolved. HR controlled on oral Cardizem. Heparin drip resumed pending EGD. Mode of AC to be determined after EGD. 5. 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 Renal US - no obstruction. HD catheter blocked during HD 02/21 - s/p RIJ replacement of HD catheter. Renal function improving - may not require any further HD as per Nephrology, will monitor. RIJ removed. 5. Hypernatremia sec to dehydration - improved with HD 6. Hypokalemia/Hypocalcemia - repleted/resolved. Started on Calcitriol and Calcium supplementation. 7. DKA - resolved. Insulin drip discontinued. Endocrine following - once oral intake picks up may need to add Levemir 10 units depending on glucose control. 8. Bipolar Disorder - normally on Seroquel, Lamictal, Diazepam. Appears stable currently off medications. 9. HTN - Norvasc, Losartan, HCTZ held due to shock. BP creeping up. Resumed on Losartan. Will add Norvasc due to uncontrolled BP. 10. Wounds R abdominal wall, R Hip and L knee with eschar ?sec to fall/carpet burn, multiple decubitus ulcers buttocks and R hip - no surrounding erythema/ infection. POD 5 s/p wound debridement in OR. Wounds dressed - wound care to follow. DVT Px - On Heparin drip. AC decisions to be made s/p EGD GI Px - PPI IV
[2019-03-02] MEDS: amLODIPine BESYLATE 10 MG TABLET (FP) PO SCH (14:12)
--- NOTE | 2019-03-02 14:32 | PN ---
Physical Exam: SUBJECTIVE: Patient seen and examined in the morning. No acute events overnight. No complaints of chest pain, shortness of breath, abdominal pain, nausea, vomiting, diarrhea. Complains of pain in his bedsores. OBJECTIVE: Vital Signs Period Temp Pulse Resp BP Sys/Verdugo Pulse Ox Last 24 Hr 98.3 F-98.6 F 86-118 18-20 115-159/65-94 96 GENERAL: The patient is AOx2, responsive and cooperative HEAD: Normal with no signs of trauma. EYES: DANIELITO, EOMI NECK: Trachea midline LUNGS: Breath sounds equal, clear to auscultation bilaterally, no wheezes, no crackles HEART: RRR, no murmurs or rubs ABDOMEN: Soft, nontender, nondistended, normoactive bowel sounds, no guarding, no rebound, no masses. EXTREMITIES: 2+ pulses, warm, well-perfused, no edema. NEUROLOGICAL: Motor 3/5 on right, 5/5 on left. Sensations intact B/L Laboratory Results - last 24 hr 03/01/19 03/01/19 03/02/19 17:28 21:26 06:10 PT with INR 13.50 H INR 1.14 H PTT (Actin FS) 29.6 POC Glucometer 139 148 03/02/19 03/02/19 06:19 11:10 PT with INR INR PTT (Actin FS) POC Glucometer 133 123 Active Medications Generic Name Dose Route Start Last Admin Trade Name Sidneyq PRN Reason Stop Dose Admin Amlodipine Besylate 10 mg 03/02/19 14:15 03/02/19 14:12 Norvasc - PO 10 mg DAILY TAVARES Administration Amoxicillin/Clavulanate Potassium 1 tab 03/01/19 08:00 03/02/19 07:53 Augmentin - 500mg Tablet PO 1 tab DAILY@0800 TAVARES Administration Calcitriol 0.25 mcg 02/26/19 10:00 03/02/19 11:03 Rocaltrol - PO 0.25 mcg DAILY TAVARES Administration Calcium Acetate 667 mg 02/26/19 08:00 03/02/19 11:03 Phoslo - PO 667 mg TIDCM TAVARES Administration Clotrimazole 1 applic 02/26/19 10:00 03/02/19 11:05 Lotrimin 1% Cream - TP 1 applic BID TAVARES Administration Collagenase 1 applic 02/25/19 15:15 03/02/19 11:05 Santyl - TP 1 applic DAILY TAVARES Administration Protocol Diltiazem HCl 30 mg 02/26/19 06:00 03/02/19 14:12 Cardizem - PO 30 mg TID TAVARES Administration Heparin Sodium (Porcine) 1,000 unit 02/26/19 15:34 03/01/19 01:54 Heparin - IVPUSH 1,000 unit PRN PRN Administration Heparin Heparin Sodium (Porcine) 5,000 unit 02/26/19 15:34 03/02/19 12:13 Heparin - IVPUSH 5,000 unit PRN PRN Administration Heparin Heparin Sodium (Porcine) 25, 500 mls @ 20 mls/hr 02/26/19 16:30 03/02/19 12: 13 000 unit/ Sodium Chloride IV 1,500 unit/hr TITR TAVARES 30 mls/hr Titration Protocol 1,000 UNIT/HR Insulin Aspart 1 vial 02/26/19 07:00 03/02/19 11:32 Novolog Vial Sliding Scale - SQ Not Given ACHS [facility] Protocol Lamotrigine 100 mg 02/26/19 10:00 03/02/19 11:04 Lamictal - PO 100 mg DAILY TAVARES Administration Losartan Potassium 50 mg 02/28/19 12:00 03/02/19 11:04 Cozaar - PO 50 mg DAILY TAVARES Administration Pantoprazole Sodium 40 mg 02/26/19 10:00 03/02/19 11:06 Protonix Iv IVPUSH 40 mg BID TAVARES Administration Tramadol HCl 100 mg 03/02/19 10:08 03/02/19 11:04 Ultram - PO 100 mg Q6H PRN Administration PAIN LEVEL 7 - 10 ASSESSMENT/PLAN: 68 M with PMH of DM, HTN, HLD, CKD, obesity, bipolar disorder, depression, and anxiety, who was brought to ED after being found down on the floor by brother with AMS. 1)Acute Hypercapneic Respiratory Failure and Septic Shock secondary to bilateral pneumonia -CT A/P showed bilateral consolidation. -Leukocytosis resolved -Augmentin 500 mg PO Daily for 3 days. 2/3 days completed 2) AMS -Likely a toxic metabolic encephalopathy from uremia or electrolyte abnormalities or DKA. Has no recollection of what occurred before admission. -MRI negative -CT head negative -F/U repeat CT Head negative for bleeds -Urine culture negative -Sliding scale insulin -Endocrinology consulted, appreciate recs -Neurology consulted, appreciate recs 3)Coffee ground emesis -Upper ENdoscopy next week. -Patient cleared by cardiology. Patient has no requirements for oxygen supplementation. 4) SMITA -No more hemodialysis required. -Rhabdomyolysis resolved -Renal U/S unremarkable -Nephrology consulted, appreciate recs 5)New onset Afib -Cardizem PO 30 mg TID PRN -On Heparin Drip -Cardiology consulted, appreciate recs -Echo shows normal EF -Normal sinus now 6) Wounds on lower chest, upper abdomen, hip -S/P Debridement. -Wet to dry dressing 7)History of Bipolar disorder -Holding home meds 8) Chronic pain in legs -Unable to confirm dose of Lyrica -Ultram 100 mg PO Q6H PRN F:Oral Hydration E: Trend CMP. Replete as needed N: NPO @ midnight DVT Prophylaxis: Heparin Drip. Hold at midnight. Dispo: Medicine Floors Visit type - Emergency Visit Emergency Visit: Yes ED Registration Date: 02/16/19 Care time: The patient presented to the Emergency Department on the above date and was hospitalized for further evaluation of their emergent condition. - New Patient This patient is new to me today: No - Critical Care Critical Care patient: No ATTENDING PHYSICIAN STATEMENT I saw and evaluated the patient. I reviewed the resident's note and discussed the case with the resident. I agree with the resident's findings and plan as documented. SUBJECTIVE: OBJECTIVE: ASSESSMENT AND PLAN:
[2019-03-02] MEDS ORDERED: INSULIN (NOVOLOG) ASPART 100 UNITS/ML 10ML VIAL ONE (21:08)
[2019-03-03] MEDS: dilTIAZem HCL 30 MG TABLET (FP) PO SCH ×3 (06:18→21:45)
[2019-03-03] MEDS: INSULIN SLIDING SCALE (NOVOLOG) 1 VIAL SQ SCH ×4 (06:18→21:46)
[2019-03-03] MEDS: AMOX TR/POT CLAV 500MG/125MG TABLETS (FP) PO SCH ×2 (08:23→17:20)
[2019-03-03] MEDS: CALCIUM ACETATE 667 MG CAPSULE (FP) PO SCH ×3 (08:23→17:20)
--- NOTE | 2019-03-03 08:45 | PN ---
Progress Note (short form) - Note Progress Note: Neurology CHIEF COMPLAINT: CVA HISTORY OF PRESENT ILLNESS: Mr. Burnette is a 68 y/o man with a pmhx of kidney disease, DM, HTN, HLD, obesity, bipolar disorder, depression, and anxiety who is BIBA after being found down in his apt for an unknown period of time. History obtained from chart as pt was confused on exam and was unable to answer questions. Per the patient's brother, the pt had an appointment with a friend I gave admission and when he did not show up the pt's friend called the police to do a wellness check (the pt did not name the friend). Police found the pt down in his apartment and he was brought to the hospital by EMS, unclear how long the pt was down for. I was contacted by the emergency department for further evaluation as the patient demonstrated an NIH stroke scale of 14. Time of onset was unknown and additionally patient with generalized confusion and weakness more so than just focal deficits and therefore concern for possible underlying toxic metabolic, infectious, diffuse process. CT head without acute changes but there was multiple metabolic derangements on lab work. White blood cell count was 12 on admission. BUN/creatinine was 252//6.2 on admission. WBC, BUN/Cr. trending down. Lastly, blood glucose was 329 on admission, being optimized. Carotid Doppler completed, small-moderate size soft plaque at the right common carotid bifurcation with intimal thickening and minimal plaque buildup on the left without evidence of hemodynamically significant stenosis bilaterally. Brain MRI without acute changes. Patient patient intubated on 02/18 , patient extubated on 02/23. Underlying derangements improving and receiving continued optimization. Repeat head ct compeleted 02/20 - moderate atrophy without gross acute intracranial pathology, chronic sinusitis and right mastoid effusion. Awake, alert and conversant this morning. Having ongoing medical optimization including now on Augmentin as antibiotic, requires physical therapy and possible placement. Upper GI bleed evaluation and management also occurring. Active Medications Amlodipine Besylate (Norvasc -) 10 mg PO DAILY [facility] Last Admin: 03/02/19 14:12 Dose: 10 mg Amoxicillin/Clavulanate Potassium (Augmentin - 500mg Tablet) 1 tab PO DAILY@ 0800 [facility] Last Admin: 03/03/19 08:23 Dose: Not Given Calcitriol (Rocaltrol -) 0.25 mcg PO DAILY [facility] Last Admin: 03/02/19 11:03 Dose: 0.25 mcg Calcium Acetate (Phoslo -) 667 mg PO TIDCM [facility] Last Admin: 03/03/19 08:23 Dose: Not Given Clotrimazole (Lotrimin 1% Cream -) 1 applic TP BID [facility] Last Admin: 03/02/19 21:19 Dose: 1 applic Collagenase (Santyl -) 1 applic TP DAILY [facility]; Protocol Last Admin: 03/02/19 11:05 Dose: 1 applic Diltiazem HCl (Cardizem -) 30 mg PO TID [facility] Last Admin: 03/03/19 06:18 Dose: Not Given Insulin Aspart (Novolog Vial Sliding Scale -) 1 vial SQ ACHS [facility]; Protocol Last Admin: 03/03/19 06:18 Dose: Not Given Lamotrigine (Lamictal -) 100 mg PO DAILY [facility] Last Admin: 03/02/19 11:04 Dose: 100 mg Losartan Potassium (Cozaar -) 50 mg PO DAILY [facility] Last Admin: 03/02/19 11:04 Dose: 50 mg Pantoprazole Sodium (Protonix Iv) 40 mg IVPUSH BID [facility] Last Admin: 03/02/19 21:20 Dose: 40 mg Tramadol HCl (Ultram -) 100 mg PO Q6H PRN PRN Reason: PAIN LEVEL 7 - 10 Last Admin: 03/02/19 18:13 Dose: 100 mg PHYSICAL EXAMINATION Vital Signs Period Temp Pulse Resp BP Sys/Verdugo Pulse Ox Last 24 Hr 98.2 F-98.6 F 70-91 18-20 128-157/75-87 96-96 GENERAL: intubated and sedated HEAD: Normal with no signs of trauma. EYES: Pupils equal, round and reactive to light, extraocular movements intact, sclera anicteric, conjunctiva clear. No lid lag. LUNGS: Breath sounds equal, HEART: Regular rate irregularly irregular rhythm, normal S1 and S2 without murmur. ABDOMEN: Soft, not distended, normoactive bowel sounds, skin breakdown on R side of abdomen with sloughing wounds and ecchymosis, very TTP, guarding, no rebound, no masses, reducible umbilical hernia. UPPER EXTREMITIES: 2+ pulses, warm, well-perfused. No cyanosis. No clubbing. No peripheral edema. Cuts on bilateral elbows LOWER EXTREMITIES: 2+ pulses, warm, well-perfused. No calf tenderness. No peripheral edema. NEUROLOGICAL: intuabted, response to voice, not moving extremities to command, response to pain PSYCHIATRIC: Cooperative. poor eye contact. SKIN: +pressure ulcer to the right hip, skin breakdown to the right side of the abdomen, Abrasions to the right side of the face. Warm and dry. CBCD WBC 5.6 K/mm3 (4.0-10.0) 03/01/19 07:50 RBC 3.68 M/mm3 (4.00-5.60) L 03/01/19 07:50 Hgb 11.4 GM/dL (11.7-16.9) L 03/01/19 07:50 Hct 33.7 % (35.4-49) L 03/01/19 07:50 MCV 91.4 fl (80-96) 03/01/19 07:50 MCHC 33.8 g/dl (32.0-35.9) 03/01/19 07:50 RDW 13.3 % (11.9-15.9) 03/01/19 07:50 Plt Count 254 K/MM3 (134-434) 03/01/19 07:50 MPV 9.2 fl (7.5-11.1) 03/01/19 07:50 CMP Sodium 137 mmol/L (136-145) 03/01/19 07:50 Potassium 4.0 mmol/L (3.5-5.1) 03/01/19 07:50 Chloride 104 mmol/L (98-107) 03/01/19 07:50 Carbon Dioxide 23 mmol/L (21-32) 03/01/19 07:50 Anion Gap 9 MMOL/L (8-16) 03/01/19 07:50 BUN 35.8 mg/dL (7-18) H 03/01/19 07:50 Creatinine 1.6 mg/dL (0.55-1.3) H 03/01/19 07:50 Calcium 9.3 mg/dL (8.5-10.1) 03/01/19 07:50 Total Bilirubin 0.7 mg/dL (0.2-1) 02/28/19 11:50 AST 22 U/L (15-37) 02/28/19 11:50 ALT 32 U/L (13-61) 02/28/19 11:50 Alkaline Phosphatase 65 U/L (45-117) 02/28/19 11:50 Total Protein 5.1 g/dl (6.4-8.2) L 02/28/19 11:50 Albumin 1.8 g/dl (3.4-5.0) L 02/28/19 11:50 ASSESSMENT/PLAN: Mr. Burnette is a 68 y/o man with a pmhx of kidney disease, DM, HTN, HLD, obesity , bipolar disorder, depression, and anxiety who is BIBA after being found down in his apt for an unknown period of time. History obtained from chart as pt was confused on exam and was unable to answer questions. Per the patient's brother, the pt had an appointment with a friend I gave admission and when he did not show up the pt's friend called the police to do a wellness check (the pt did not name the friend). Police found the pt down in his apartment and he was brought to the hospital by EMS, unclear how long the pt was down for. I was contacted by the emergency department for further evaluation as the patient demonstrated an NIH stroke scale of 14. Time of onset was unknown and additionally patient with generalized confusion and weakness more so than just focal deficits and therefore concern for possible underlying toxic metabolic, infectious, diffuse process. CT head without acute changes but there was multiple metabolic derangements on lab work. White blood cell count was 12 on admission. BUN/creatinine was 252//6.2 on admission. WBC, BUN/Cr. trending down. Lastly, blood glucose was 329 on admission, being optimized. Carotid Doppler completed, small-moderate size soft plaque at the right common carotid bifurcation with intimal thickening and minimal plaque buildup on the left without evidence of hemodynamically significant stenosis bilaterally. Brain MRI without acute changes. Patient patient intubated on 02/18, patient extubated on 02/23. Underlying derangements improving and receiving continued optimization. Repeat head ct compeleted 02/20 - moderate atrophy without gross acute intracranial pathology, chronic sinusitis and right mastoid effusion. Awake, alert and conversant this morning. Having ongoing medical optimization including now on Augmentin as antibiotic, requires physical therapy and possible placement. Upper GI bleed evaluation and management also occurring. Diabetic ketoacidosis, monitor glucose, maintain euglycemic range. Monitor electrolytes, follow-up recommendations from nephrology, IV hydration as tolerated, derangements improved. Monitor blood pressure, maintain less than 140/90. Continue management optimization of potential for GI bleed. Antibiotics as per primary team, dispo and placement as per case management.
[2019-03-03 09:02] LABS: BASO % 1.1 % (0-2.0); EOS % 3.4 % (0-4.5); HEMATOCRIT 33.1 % (35.4-49); HEMOGLOBIN 11.4 GM/dL (11.7-16.9); LYMPH % 8.4 % (8-40); MCH 31.5 pg (25.7-33.7); MCHC 34.4 g/dl (32.0-35.9); MEAN CELL VOLUME 91.6 fl (80-96); MEAN PLT VOLUME 9.1 fl (7.5-11.1); MONO % 7.6 % (3.8-10.2); NEUT % 79.5 % (42.8-82.8); PLATELET COUNT 267 K/MM3 (134-434); RBC 3.62 M/mm3 (4.00-5.60); RDW 13.4 % (11.9-15.9); WHITE BLOOD COUNT 6.5 K/mm3 (4.0-10.0)
[2019-03-03 09:24] LABS: BLOOD UREA NITROGEN 26.2 mg/dL (7-18); CALCIUM 9.2 mg/dL (8.5-10.1); CREATININE 1.4 mg/dL (0.55-1.3); POTASSIUM 4.4 mmol/L (3.5-5.1)
[2019-03-03] MEDS: traMADol HCL 50 MG TABLET PO PRN ×3 (10:02→22:23)
[2019-03-03] MEDS: PANTOPRAZOLE SODIUM 40 MG VIAL IVPUSH SCH (10:03)
[2019-03-03] MEDS: amLODIPine BESYLATE 10 MG TABLET (FP) PO SCH (10:03)
[2019-03-03] MEDS: LOSARTAN POTASSIUM 50 MG TABLET (FP) PO SCH (10:03)
--- NOTE | 2019-03-03 10:23 | PN ---
Progress Note, Physician Chief Complaint: Mental status better Awake History of Present Illness: Patient was seen and examined. Awake. Chart was reviewed Denies chest pain or SOB - Current Medication List Current Medications: Active Medications Amlodipine Besylate (Norvasc -) 10 mg PO DAILY [facility] Last Admin: 03/03/19 10:03 Dose: 10 mg Amoxicillin/Clavulanate Potassium (Augmentin - 500mg Tablet) 1 tab PO DAILY@ 0800 [facility] Last Admin: 03/03/19 08:23 Dose: Not Given Calcitriol (Rocaltrol -) 0.25 mcg PO DAILY [facility] Last Admin: 03/02/19 11:03 Dose: 0.25 mcg Calcium Acetate (Phoslo -) 667 mg PO TIDCM [facility] Last Admin: 03/03/19 08:23 Dose: Not Given Clotrimazole (Lotrimin 1% Cream -) 1 applic TP BID [facility] Last Admin: 03/02/19 21:19 Dose: 1 applic Collagenase (Santyl -) 1 applic TP DAILY [facility]; Protocol Last Admin: 03/02/19 11:05 Dose: 1 applic Diltiazem HCl (Cardizem -) 30 mg PO TID [facility] Last Admin: 03/03/19 06:18 Dose: Not Given Insulin Aspart (Novolog Vial Sliding Scale -) 1 vial SQ ACHS [facility]; Protocol Last Admin: 03/03/19 06:18 Dose: Not Given Lamotrigine (Lamictal -) 100 mg PO DAILY [facility] Last Admin: 03/02/19 11:04 Dose: 100 mg Losartan Potassium (Cozaar -) 50 mg PO DAILY [facility] Last Admin: 03/03/19 10:03 Dose: 50 mg Pantoprazole Sodium (Protonix Iv) 40 mg IVPUSH BID [facility] Last Admin: 03/03/19 10:03 Dose: 40 mg Tramadol HCl (Ultram -) 100 mg PO Q6H PRN PRN Reason: PAIN LEVEL 7 - 10 Last Admin: 03/03/19 10:02 Dose: 100 mg - Objective Vital Signs: Vital Signs Temperature 98.6 F 03/03/19 06:16 Pulse Rate 70 03/03/19 06:16 Respiratory Rate 20 03/03/19 06:16 Blood Pressure 150/78 03/03/19 06:16 O2 Sat by Pulse Oximetry (%) 96 03/03/19 00:37 Eyes: Yes: PERRL HENT: Yes: Atraumatic Neck: Yes: Supple Cardiovascular: Yes: Regular Rate and Rhythm, S1, S2 Respiratory: Yes: CTA Bilaterally Gastrointestinal: Yes: Normal Bowel Sounds, Soft. No: Tenderness Edema: No Labs: CBC, BMP 03/03/19 07:30 03/03/19 07:30 INR, PTT INR 1.14 (0.83-1.09) H 03/02/19 06:10 Problem List - Problems (1) HTN (hypertension) Code(s): I10 - ESSENTIAL (PRIMARY) HYPERTENSION (2) Hypercholesterolemia Code(s): E78.00 - PURE HYPERCHOLESTEROLEMIA, UNSPECIFIED (3) Bipolar disorder Code(s): F31.9 - BIPOLAR DISORDER, UNSPECIFIED (4) Leukocytosis Code(s): D72.829 - ELEVATED WHITE BLOOD CELL COUNT, UNSPECIFIED (5) Renal failure Code(s): N19 - UNSPECIFIED KIDNEY FAILURE (6) Rhabdomyolysis Code(s): M62.82 - RHABDOMYOLYSIS Assessment/Plan 1. Questionable syncope and altered mental status - currently improved 2. Post acute respiratory failure 3. Coronary artery disease/visual coronary artery calcification, angina pectoris 4. Diastolic LV dysfunction with clinical class 0 NYHA classification LV failure 5. PAF currently in sinus rhythm [id number] score of either 2-3 currently on no A/C recent coffee ground emesis/GI bleed 6. History of HTN 7. Hypercholesterolemia 8. Acute on CKD requiring HD 9. Bipolar disorder, depression and anxiety 10. History of coffee ground emesis resolved etiology unclear 11. Rhabdomyolysis resolved PLAN: 1. Eliquis as tolerated 2. Monitor renal recovery 3. Continue Cardizem 30 mg TID and Losartan 50 mg QD 4. Antibiotics coverage 5. May proceed with EGD Andi Vázquez MD
--- NOTE | 2019-03-03 11:24 | PN ---
Progress Note (short form) - Note Progress Note: PULMONARY Denies shortness of breath, chest pain, cough or wheezing. c/o bedsore pain. Vital Signs Period Temp Pulse Resp BP Sys/Verdugo Pulse Ox Last 24 Hr 98.2 F-98.6 F 70-91 18-20 128-151/67-87 96-96 Gen: NAD at rest Heart: RRR Lung: decreased breath sounds at the bases Abd: soft, nontender Ext: no edema CBC, BMP 03/03/19 07:30 03/03/19 07:30 Active Medications Amlodipine Besylate (Norvasc -) 10 mg PO DAILY [facility] Last Admin: 03/03/19 10:03 Dose: 10 mg Amoxicillin/Clavulanate Potassium (Augmentin - 500mg Tablet) 1 tab PO DAILY@ 0800 [facility] Last Admin: 03/03/19 08:23 Dose: Not Given Calcitriol (Rocaltrol -) 0.25 mcg PO DAILY [facility] Last Admin: 03/02/19 11:03 Dose: 0.25 mcg Calcium Acetate (Phoslo -) 667 mg PO TIDCM [facility] Last Admin: 03/03/19 08:23 Dose: Not Given Clotrimazole (Lotrimin 1% Cream -) 1 applic TP BID [facility] Last Admin: 03/02/19 21:19 Dose: 1 applic Collagenase (Santyl -) 1 applic TP DAILY [facility]; Protocol Last Admin: 03/02/19 11:05 Dose: 1 applic Diltiazem HCl (Cardizem -) 30 mg PO TID [facility] Last Admin: 03/03/19 06:18 Dose: Not Given Insulin Aspart (Novolog Vial Sliding Scale -) 1 vial SQ ACHS [facility]; Protocol Last Admin: 03/03/19 06:18 Dose: Not Given Lamotrigine (Lamictal -) 100 mg PO DAILY [facility] Last Admin: 03/02/19 11:04 Dose: 100 mg Losartan Potassium (Cozaar -) 50 mg PO DAILY [facility] Last Admin: 03/03/19 10:03 Dose: 50 mg Pantoprazole Sodium (Protonix Iv) 40 mg IVPUSH BID [facility] Last Admin: 03/03/19 10:03 Dose: 40 mg Tramadol HCl (Ultram -) 100 mg PO Q6H PRN PRN Reason: PAIN LEVEL 7 - 10 Last Admin: 03/03/19 10:02 Dose: 100 mg A/P Altered Mental Status/Syncope resolved s/p Acute Respiratory Failure Acute on Chronic Renal Failure requiring HD improving Rhabdomyolysis improved Paroxysmal Atrial Fibrillation HTN Hypercholesterolemia Anemia/Thrombocytopenia Necrotic Decubitus Ulcers s/p Debridement r/o GI Bleed - monitor urine output, creatinine - rate control - anticoagulation when ok with GI - for EGD - DVT/GI prophylaxis - pt asymptomatic, saturating well on room air, CXR improved - can proceed with endoscopy from pulmonary standpoint
[2019-03-03] MEDS: CLOTRIMAZOLE 1% CREAM 15 GM TUBE TP SCH ×2 (11:33→21:45)
[2019-03-03] MEDS: COLLAGENASE CLOSTRIDIUM HIST. 30 GRAMS TUBE TP SCH (11:33)
[2019-03-03 12:11] LABS: ANISOCYTOSIS 1+; MACROCYTOSIS 1+; PLATELET ESTIMATE NORMAL
[2019-03-03] MEDS ORDERED: HEPARIN NA (PORCINE) 5,000 UNITS/ML 1ML VIAL IVPUSH PRN ×2 (13:53)
[2019-03-03] MEDS ORDERED: HEPARIN - 25,000 UNIT in SODIUM CHLORIDE 495 ML IV SCH (14:00)
[2019-03-03] MEDS ORDERED: MIDAZOLAM HCL 2 MG/2 ML SINGLE DOSE VIAL ONE (14:40)
[2019-03-03] MEDS: lamoTRIgine 100 MG TABLET (FP) PO SCH (16:22)
--- NOTE | 2019-03-03 17:17 | PN ---
Physical Exam: SUBJECTIVE: Patient seen and examined in the morning. No acute events overnight. No complaints of chest pain, shortness of breath, abdominal pain, nausea, vomiting, diarrhea. Complains of pain in his bedsores. OBJECTIVE: Vital Signs Period Temp Pulse Resp BP Sys/Verdugo Pulse Ox Last 24 Hr 98.2 F-98.6 F 70-95 17-20 111-150/64-78 94-98 GENERAL: The patient is alert and oriented to person, place, and time, responsive and cooperative HEAD: Normal with no signs of trauma. EYES: DANIELITO, EOMI NECK: Trachea midline LUNGS: Breath sounds equal, clear to auscultation bilaterally, no wheezes, no crackles HEART: RRR, no murmurs or rubs ABDOMEN: Soft, nontender, nondistended, normoactive bowel sounds, no guarding, no rebound, no masses. EXTREMITIES: 2+ pulses, warm, well-perfused, no edema. NEUROLOGICAL: Motor 4/5 on right, 5/5 on left. Sensations intact B/L Laboratory Results - last 24 hr 03/02/19 03/02/19 03/02/19 17:03 17:49 21:18 WBC RBC Hgb Hct MCV MCH MCHC RDW Plt Count MPV Absolute Neuts (auto) Neutrophils % Neutrophils % (Manual) Band Neutrophils % Lymphocytes % Lymphocytes % (Manual) Monocytes % Monocytes % (Manual) Eosinophils % Eosinophils % (Manual) Basophils % Basophils % (Manual) Myelocytes % (Man) Promyelocytes % (Man) Blast Cells % (Manual) Nucleated RBC % Metamyelocytes Hypochromia Platelet Estimate Platelet Comment Polychromasia Poikilocytosis Anisocytosis Microcytosis Macrocytosis Spherocytes PTT (Actin FS) 117.4 H Sodium Potassium Chloride Carbon Dioxide Anion Gap BUN Creatinine Est GFR (CKD-EPI)AfAm Est GFR (CKD-EPI)NonAf POC Glucometer 133 141 Random Glucose Calcium 03/03/19 03/03/19 03/03/19 06:17 07:30 07:30 WBC 6.5 RBC 3.62 L Hgb 11.4 L Hct 33.1 L MCV 91.6 MCH 31.5 MCHC 34.4 RDW 13.4 Plt Count 267 MPV 9.1 Absolute Neuts (auto) 5.1 Neutrophils % 79.5 Neutrophils % (Manual) 75.5 Band Neutrophils % 0.0 Lymphocytes % 8.4 Lymphocytes % (Manual) 7.3 L Monocytes % 7.6 Monocytes % (Manual) 5 D Eosinophils % 3.4 Eosinophils % (Manual) 7.3 H D Basophils % 1.1 Basophils % (Manual) 1.8 Myelocytes % (Man) 2 D Promyelocytes % (Man) 0 Blast Cells % (Manual) 0 Nucleated RBC % 0 Metamyelocytes 0 Hypochromia 0 Platelet Estimate Normal Platelet Comment Present Polychromasia 1+ Poikilocytosis 0 Anisocytosis 1+ Microcytosis 0 Macrocytosis 1+ Spherocytes 1+ PTT (Actin FS) Sodium 136 Potassium 4.4 Chloride 104 Carbon Dioxide 25 Anion Gap 7 L BUN 26.2 H Creatinine 1.4 H Est GFR (CKD-EPI)AfAm 59.83 Est GFR (CKD-EPI)NonAf 51.62 POC Glucometer 137 Random Glucose 117 H Calcium 9.2 03/03/19 11:31 WBC RBC Hgb Hct MCV MCH MCHC RDW Plt Count MPV Absolute Neuts (auto) Neutrophils % Neutrophils % (Manual) Band Neutrophils % Lymphocytes % Lymphocytes % (Manual) Monocytes % Monocytes % (Manual) Eosinophils % Eosinophils % (Manual) Basophils % Basophils % (Manual) Myelocytes % (Man) Promyelocytes % (Man) Blast Cells % (Manual) Nucleated RBC % Metamyelocytes Hypochromia Platelet Estimate Platelet Comment Polychromasia Poikilocytosis Anisocytosis Microcytosis Macrocytosis Spherocytes PTT (Actin FS) Sodium Potassium Chloride Carbon Dioxide Anion Gap BUN Creatinine Est GFR (CKD-EPI)AfAm Est GFR (CKD-EPI)NonAf POC Glucometer 109 Random Glucose Calcium Active Medications Generic Name Dose Route Start Last Admin Trade Name Freq PRN Reason Stop Dose Admin Amlodipine Besylate 10 mg 03/02/19 14:15 03/03/19 10:03 Norvasc - PO 10 mg DAILY [facility] Administration Amoxicillin/Clavulanate Potassium 1 tab 03/01/19 08:00 03/03/19 08:23 Augmentin - 500mg Tablet PO Not Given DAILY@0800 [facility] Apixaban 5 mg 03/03/19 22:00 Eliquis - PO BID [facility] Calcitriol 0.25 mcg 02/26/19 10:00 03/02/19 11:03 Rocaltrol - PO 0.25 mcg DAILY [facility] Administration Calcium Acetate 667 mg 02/26/19 08:00 03/03/19 11:34 Phoslo - PO Not Given TIDCM [facility] Clotrimazole 1 applic 02/26/19 10:00 03/03/19 11:33 Lotrimin 1% Cream - TP 1 applic BID [facility] Administration Collagenase 1 applic 02/25/19 15:15 03/03/19 11:33 Santyl - TP 1 applic DAILY [facility] Administration Protocol Diltiazem HCl 30 mg 02/26/19 06:00 03/03/19 16:24 Cardizem - PO 30 mg TID [facility] Administration Insulin Aspart 1 vial 02/26/19 07:00 03/03/19 11:32 Novolog Vial Sliding Scale - SQ Not Given ACHS [facility] Protocol Lamotrigine 100 mg 02/26/19 10:00 03/03/19 16:22 Lamictal - PO 100 mg DAILY [facility] Administration Losartan Potassium 50 mg 02/28/19 12:00 03/03/19 10:03 Cozaar - PO 50 mg DAILY [facility] Administration Pantoprazole Sodium 40 mg 02/26/19 10:00 03/03/19 10:03 Protonix Iv IVPUSH 40 mg BID [facility] Administration Tramadol HCl 100 mg 03/02/19 10:08 03/03/19 16:22 Ultram - PO 100 mg Q6H PRN Administration PAIN LEVEL 7 - 10 ASSESSMENT/PLAN: 68 M with PMH of DM, HTN, HLD, CKD, obesity, bipolar disorder, depression, and anxiety, who was brought to ED after being found down on the floor by brother with AMS. 1)Acute Hypercapneic Respiratory Failure and Septic Shock secondary to bilateral pneumonia -CT A/P showed bilateral consolidation. -Leukocytosis resolved -Augmentin 500 mg PO Daily for 3 days. 3/3 days completed today 2) AMS -Likely a toxic metabolic encephalopathy from uremia or electrolyte abnormalities or DKA. Has no recollection of what occurred before admission. -MRI negative -CT head negative -F/U repeat CT Head negative for bleeds -Urine culture negative -Sliding scale insulin -Endocrinology consulted, appreciate recs -Neurology consulted, appreciate recs 3)Coffee ground emesis -Endoscopy completed, -Ulcer seen, biopsy sent -Protonix 40 mg IV BID 4) SMITA -No more hemodialysis required. -Rhabdomyolysis resolved -Renal U/S unremarkable -Nephrology consulted, appreciate recs 5)New onset Afib -Cardizem PO 30 mg TID PRN -Eliquis 5 mg PO BID -Cardiology consulted, appreciate recs -Echo shows normal EF -Normal sinus now 6) Wounds on lower chest, upper abdomen, hip -S/P Debridement. -Wet to dry dressing 7)History of Bipolar disorder -Holding home meds 8) Chronic pain in legs -Unable to confirm dose of Lyrica -Ultram 100 mg PO Q6H PRN F:Oral Hydration E: Trend CMP. Replete as needed N: Regular diet DVT Prophylaxis: Eliquis 5mg PO BID Dispo: Pending SNF referrals Visit type - Emergency Visit Emergency Visit: Yes ED Registration Date: 02/16/19 Care time: The patient presented to the Emergency Department on the above date and was hospitalized for further evaluation of their emergent condition. - New Patient This patient is new to me today: No - Critical Care Critical Care patient: No ATTENDING PHYSICIAN STATEMENT I saw and evaluated the patient. I reviewed the resident's note and discussed the case with the resident. I agree with the resident's findings and plan as documented. SUBJECTIVE: OBJECTIVE: ASSESSMENT AND PLAN:
[2019-03-03] MEDS: CALCITRIOL 0.25 MCG CAPSULE (FP) PO SCH (17:20)
--- NOTE | 2019-03-03 17:33 | PN ---
Teaching Attending Note Name of Resident: Eb Harding ATTENDING PHYSICIAN STATEMENT I saw and evaluated the patient. I reviewed the resident's note and discussed the case with the resident. I agree with the resident's findings and plan as documented. SUBJECTIVE: Feels well, complains of some discomfort due to decubitus wounds. s /p extubation 02/23. More alert and oriented. No further coffee ground emesis. POD 6 s/p wound debridement L knee, R hip. No fever/pain. no SOB/cough/sputum/ hemoptysis. OBJECTIVE: Afebrile, Hemodynamically stable. Extubated 02/23. Off Propofol and Levophed. AAO x 2-3. SpO2 96% on RA Last Vital Signs Temp Pulse Resp BP Pulse Ox 98.4 F 82 19 136/69 96 03/03/19 16:19 03/03/19 16:19 03/03/19 16:19 03/03/19 16:19 03/03/19 15:49 Heart - S1, S2, RRR Lungs - good air entry bilaterally. Abdomen - Soft, non-tender. R sided abdominal wall wound without surrounding cellulitis. Extremities - Edema resolved. Ulcer wound to inner aspect L knee and R hip dressed s/p surgical debridement 02/25, no surrounding erythema. Neuro - WILLARD. Moving extremities, Decreased Power on R - RUE 3/5, RLE 4/5 MS - Decubitus ulcers without surrounding erythema. Laboratory Results - last 24 hr 03/02/19 03/02/19 03/03/19 17:49 21:18 06:17 WBC RBC Hgb Hct MCV MCH MCHC RDW Plt Count MPV Absolute Neuts (auto) Neutrophils % Neutrophils % (Manual) Band Neutrophils % Lymphocytes % Lymphocytes % (Manual) Monocytes % Monocytes % (Manual) Eosinophils % Eosinophils % (Manual) Basophils % Basophils % (Manual) Myelocytes % (Man) Promyelocytes % (Man) Blast Cells % (Manual) Nucleated RBC % Metamyelocytes Hypochromia Platelet Estimate Platelet Comment Polychromasia Poikilocytosis Anisocytosis Microcytosis Macrocytosis Spherocytes PTT (Actin FS) 117.4 H Sodium Potassium Chloride Carbon Dioxide Anion Gap BUN Creatinine Est GFR (CKD-EPI)AfAm Est GFR (CKD-EPI)NonAf POC Glucometer 141 137 Random Glucose Calcium 03/03/19 03/03/19 03/03/19 07:30 07:30 11:31 WBC 6.5 RBC 3.62 L Hgb 11.4 L Hct 33.1 L MCV 91.6 MCH 31.5 MCHC 34.4 RDW 13.4 Plt Count 267 MPV 9.1 Absolute Neuts (auto) 5.1 Neutrophils % 79.5 Neutrophils % (Manual) 75.5 Band Neutrophils % 0.0 Lymphocytes % 8.4 Lymphocytes % (Manual) 7.3 L Monocytes % 7.6 Monocytes % (Manual) 5 D Eosinophils % 3.4 Eosinophils % (Manual) 7.3 H D Basophils % 1.1 Basophils % (Manual) 1.8 Myelocytes % (Man) 2 D Promyelocytes % (Man) 0 Blast Cells % (Manual) 0 Nucleated RBC % 0 Metamyelocytes 0 Hypochromia 0 Platelet Estimate Normal Platelet Comment Present Polychromasia 1+ Poikilocytosis 0 Anisocytosis 1+ Microcytosis 0 Macrocytosis 1+ Spherocytes 1+ PTT (Actin FS) Sodium 136 Potassium 4.4 Chloride 104 Carbon Dioxide 25 Anion Gap 7 L BUN 26.2 H Creatinine 1.4 H Est GFR (CKD-EPI)AfAm 59.83 Est GFR (CKD-EPI)NonAf 51.62 POC Glucometer 109 Random Glucose 117 H Calcium 9.2 03/03/19 17:17 WBC RBC Hgb Hct MCV MCH MCHC RDW Plt Count MPV Absolute Neuts (auto) Neutrophils % Neutrophils % (Manual) Band Neutrophils % Lymphocytes % Lymphocytes % (Manual) Monocytes % Monocytes % (Manual) Eosinophils % Eosinophils % (Manual) Basophils % Basophils % (Manual) Myelocytes % (Man) Promyelocytes % (Man) Blast Cells % (Manual) Nucleated RBC % Metamyelocytes Hypochromia Platelet Estimate Platelet Comment Polychromasia Poikilocytosis Anisocytosis Microcytosis Macrocytosis Spherocytes PTT (Actin FS) Sodium Potassium Chloride Carbon Dioxide Anion Gap BUN Creatinine Est GFR (CKD-EPI)AfAm Est GFR (CKD-EPI)NonAf POC Glucometer 159 Random Glucose Calcium Current Medications Generic Name Dose Route Start Last Admin Trade Name Freq PRN Reason Stop Dose Admin Amlodipine Besylate 10 mg 03/02/19 14:15 03/03/19 10:03 Norvasc - PO 10 mg DAILY [facility] Administration Amoxicillin/Clavulanate Potassium 1 tab 03/01/19 08:00 03/03/19 17:20 Augmentin - 500mg Tablet PO 1 tab DAILY@0800 [facility] Administration Apixaban 5 mg 03/03/19 22:00 Eliquis - PO BID [facility] Calcitriol 0.25 mcg 02/26/19 10:00 03/03/19 17:20 Rocaltrol - PO 0.25 mcg DAILY [facility] Administration Calcium Acetate 667 mg 02/26/19 08:00 03/03/19 17:20 Phoslo - PO 667 mg TIDCM [facility] Administration Clotrimazole 1 applic 02/26/19 10:00 03/03/19 11:33 Lotrimin 1% Cream - TP 1 applic BID [facility] Administration Collagenase 1 applic 02/25/19 15:15 03/03/19 11:33 Santyl - TP 1 applic DAILY [facility] Administration Protocol Diltiazem HCl 30 mg 02/26/19 06:00 03/03/19 16:24 Cardizem - PO 30 mg TID [facility] Administration Insulin Aspart 1 vial 02/26/19 07:00 03/03/19 17:19 Novolog Vial Sliding Scale - SQ 2 units ACHS [facility] Administration Protocol Lamotrigine 100 mg 02/26/19 10:00 03/03/19 16:22 Lamictal - PO 100 mg DAILY [facility] Administration Losartan Potassium 50 mg 02/28/19 12:00 03/03/19 10:03 Cozaar - PO 50 mg DAILY [facility] Administration Pantoprazole Sodium 40 mg 02/26/19 10:00 03/03/19 10:03 Protonix Iv IVPUSH 40 mg BID [facility] Administration Tramadol HCl 100 mg 03/02/19 10:08 03/03/19 16:22 Ultram - PO 100 mg Q6H PRN Administration PAIN LEVEL 7 - 10 Home Medications Medication Instructions Recorded Allopurinol [Zyloprim -] 200 mg DAILY 02/17/19 Amlodipine Besylate 10 mg PO DAILY 02/17/19 Diazepam [Valium] 10 mg PO TID 02/17/19 Insulin Aspart [Novolog] 2 units TID 02/17/19 Insulin Glargine,Hum.rec.anlog 95 unit HS 02/17/19 [Young Goostdevon] Lamotrigine 100 mg DAILY 02/17/19 Losartan/Hydrochlorothiazide 1 tablet DAILY 02/17/19 [Losartan-Hctz 100-12.5 mg Tab] Quetiapine Fumarate [Seroquel -] 200 mg PO HS 02/17/19 Fenofibrate 40 mg PO DAILY 02/26/19 Fluvastatin Sodium [Fluvastatin ER] 80 mg PO PRN 02/26/19 Pregabalin [Lyrica -] 02/26/19 Tramadol HCl 50 mg PO PRN 02/26/19 Atorvastatin Calcium 80 mg PO 03/02/19 Duloxetine HCl [Cymbalta -] 60 mg PO DAILY 03/02/19 Liraglutide [Victoza -] 18 mg SQ 03/02/19 Niacin (Inositol Niacinate) 500 mg PO 03/02/19 [Niacin 500 mg Capsule] Wilson-3 Acid Ethyl Esters [Lovaza 4,000 mg PO DAILY 03/02/19 -] ASSESSMENT/PLAN: 68 year old male with history of DM 2, HTN, HLD, CKD 3, Obesity, Bipolar Disorder, Depression, Anxiety, lives alone, found on floor of his house by his brother, noted to have SMITA, DKA, Multiple electrolyte abnormalities, AMS. 1. Acute Hypercapneic Respiratory Failure and Septic Shock, secondary to bilateral Pneumonia, likely Aspiration - resolved Intubated, Extubated 02/23/19. Continue to wean off O2. CT C/A/P - bilateral consolidation. Leukocytosis resolved. Sputum Cx - normal yulissa. Urine legionella Ag negative. IV Zosyn transitioned to Augmentin by ID for 3 additional days - last dose this evening. 2. Syncope/Fall with LOC and Acute Encephalopathy (secondary to Uremia vs Hypernatremia vs Acidosis) Initially recovered mental status after adequate hydration and electrolyte replacement, but then became unresponsive in respiratory distress requiring intubation. Initial CT Head negative for acute findings, repeat CT shows no interval change. No telemonitoring events. Echo - normal EF, small pericardial effusion, no signs of tamponade. MRI Brain - age related changes, no acute intracranial findings. PT, will require SNF, CM aware. 3. Upper GI Bleed s/p EGD 03/03 showing PUD - discussed with Dr. Zhao - recommend Protonix 40mg BID and no contraindication to starting Eliquis given his stable H.H on therapeutic Heparin drip for the past week. 4. Atrial Fibrillation with RVR - resolved. HR controlled on oral Cardizem. Will start Eliquis. 5. 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 Renal US - no obstruction. HD catheter blocked during HD 02/21 - s/p RIJ replacement of HD catheter. Renal function improving - no further HD required as per Nephrology. Will monitor renal function. RIJ removed. 6. Hypokalemia/Hypocalcemia - repleted/resolved. Started on Calcitriol and Calcium supplementation. 7. DKA - resolved. Insulin drip discontinued. Endocrine following - once oral intake picks up may need to add Levemir 10 units depending on glucose control. 8. Bipolar Disorder - normally on Seroquel, Lamictal, Diazepam. Appears stable currently off medications. No psychosis or behavioral disturbance. 9. HTN - Norvasc, Losartan, HCTZ held due to shock. BP creeping up. Resumed on Losartan. Will add Norvasc due to uncontrolled BP. 10. Wounds R abdominal wall, R Hip and L knee with eschar ?sec to fall/carpet burn, multiple decubitus ulcers buttocks and R hip - no surrounding erythema/ infection. POD 6 s/p excisional wound debridement in OR by Dr. Abreu. Wounds dressed - awaiting wound care/surgery follow up. DVT Px - started on Eliquis. GI Px - PPI
--- NOTE | 2019-03-03 18:34 | PN ---
Progress Note, Physician History of Present Illness: Pt seen and examined at bedside. He denies shortness of breath. - Current Medication List Current Medications: Active Medications Amlodipine Besylate (Norvasc -) 10 mg PO DAILY [facility] Last Admin: 03/03/19 10:03 Dose: 10 mg Apixaban (Eliquis -) 5 mg PO BID [facility] Calcitriol (Rocaltrol -) 0.25 mcg PO DAILY [facility] Last Admin: 03/03/19 17:20 Dose: 0.25 mcg Calcium Acetate (Phoslo -) 667 mg PO TIDCM [facility] Last Admin: 03/03/19 17:20 Dose: 667 mg Clotrimazole (Lotrimin 1% Cream -) 1 applic TP BID [facility] Last Admin: 03/03/19 11:33 Dose: 1 applic Collagenase (Santyl -) 1 applic TP DAILY [facility]; Protocol Last Admin: 03/03/19 11:33 Dose: 1 applic Diltiazem HCl (Cardizem -) 30 mg PO TID [facility] Last Admin: 03/03/19 16:24 Dose: 30 mg Insulin Aspart (Novolog Vial Sliding Scale -) 1 vial SQ ACHS [facility]; Protocol Last Admin: 03/03/19 17:19 Dose: 2 units Lamotrigine (Lamictal -) 100 mg PO DAILY [facility] Last Admin: 03/03/19 16:22 Dose: 100 mg Losartan Potassium (Cozaar -) 50 mg PO DAILY [facility] Last Admin: 03/03/19 10:03 Dose: 50 mg Pantoprazole Sodium (Protonix -) 40 mg PO BID [facility] Tramadol HCl (Ultram -) 100 mg PO Q6H PRN PRN Reason: PAIN LEVEL 7 - 10 Last Admin: 03/03/19 16:22 Dose: 100 mg - Objective Vital Signs: Vital Signs Temperature 98.4 F 03/03/19 16:19 Pulse Rate 82 03/03/19 16:19 Respiratory Rate 19 03/03/19 16:19 Blood Pressure 136/69 03/03/19 16:19 O2 Sat by Pulse Oximetry (%) 96 03/03/19 15:49 Constitutional: Yes: Calm Eyes: Yes: Conjunctiva Clear HENT: Yes: Atraumatic Cardiovascular: Yes: S1, S2 Respiratory: Yes: CTA Bilaterally Gastrointestinal: Yes: Normal Bowel Sounds, Soft Genitourinary: Yes: Incontinence Edema: No Neurological: Yes: Oriented Labs: CBC, BMP 03/03/19 07:30 03/03/19 07:30 INR, PTT INR 1.14 (0.83-1.09) H 03/02/19 06:10 Assessment/Plan Current Medications Generic Name Dose Route Start Last Admin Trade Name Freq PRN Reason Stop Dose Admin Amlodipine Besylate 10 mg 03/02/19 14:15 03/03/19 10:03 Norvasc - PO 10 mg DAILY [facility] Administration Apixaban 5 mg 03/03/19 22:00 Eliquis - PO BID [facility] Calcitriol 0.25 mcg 02/26/19 10:00 03/03/19 17:20 Rocaltrol - PO 0.25 mcg DAILY [facility] Administration Calcium Acetate 667 mg 02/26/19 08:00 03/03/19 17:20 Phoslo - PO 667 mg TIDCM [facility] Administration Clotrimazole 1 applic 02/26/19 10:00 03/03/19 11:33 Lotrimin 1% Cream - TP 1 applic BID [facility] Administration Collagenase 1 applic 02/25/19 15:15 03/03/19 11:33 Santyl - TP 1 applic DAILY [facility] Administration Protocol Diltiazem HCl 30 mg 02/26/19 06:00 03/03/19 16:24 Cardizem - PO 30 mg TID [facility] Administration Insulin Aspart 1 vial 02/26/19 07:00 03/03/19 17:19 Novolog Vial Sliding Scale - SQ 2 units ACHS [facility] Administration Protocol Lamotrigine 100 mg 02/26/19 10:00 03/03/19 16:22 Lamictal - PO 100 mg DAILY [facility] Administration Losartan Potassium 50 mg 02/28/19 12:00 03/03/19 10:03 Cozaar - PO 50 mg DAILY [facility] Administration Pantoprazole Sodium 40 mg 03/03/19 22:00 Protonix - PO BID [facility] Tramadol HCl 100 mg 03/02/19 10:08 03/03/19 16:22 Ultram - PO 100 mg Q6H PRN Administration PAIN LEVEL 7 - 10 Laboratory Tests 03/01/19 07:50 Creatine Kinase 33 Impression 1. SMITA 2. rhabdo 3. dka 4. altered mental status 5. hyperkalemia 6. resp failure Plan - renal function stable - serologies negative - avoid nsaids - monitor renal function - cpk normalized
[2019-03-03] MEDS ORDERED: INSULIN (NOVOLOG) ASPART 100 UNITS/ML 10ML VIAL ONE (21:31)
[2019-03-03] MEDS: APIXABAN 5 MG TABLET PO SCH (21:45)
[2019-03-03] MEDS: PANTOPRAZOLE 40 MG TABLET (FP) PO SCH (21:46)
[2019-03-04] MEDS: dilTIAZem HCL 30 MG TABLET (FP) PO SCH ×3 (06:29→21:41)
[2019-03-04] MEDS: INSULIN SLIDING SCALE (NOVOLOG) 1 VIAL SQ SCH ×4 (06:29→21:41)
[2019-03-04] MEDS: CALCIUM ACETATE 667 MG CAPSULE (FP) PO SCH ×2 (08:39→12:04)
--- NOTE | 2019-03-04 08:46 | PN ---
Progress Note (short form) - Note Progress Note: Neurology CHIEF COMPLAINT: CVA HISTORY OF PRESENT ILLNESS: Mr. Burnette is a 68 y/o man with a pmhx of kidney disease, DM, HTN, HLD, obesity, bipolar disorder, depression, and anxiety who is BIBA after being found down in his apt for an unknown period of time. History obtained from chart as pt was confused on exam and was unable to answer questions. Per the patient's brother, the pt had an appointment with a friend I gave admission and when he did not show up the pt's friend called the police to do a wellness check (the pt did not name the friend). Police found the pt down in his apartment and he was brought to the hospital by EMS, unclear how long the pt was down for. I was contacted by the emergency department for further evaluation as the patient demonstrated an NIH stroke scale of 14. Time of onset was unknown and additionally patient with generalized confusion and weakness more so than just focal deficits and therefore concern for possible underlying toxic metabolic, infectious, diffuse process. CT head without acute changes but there was multiple metabolic derangements on lab work. White blood cell count was 12 on admission. BUN/creatinine was 252//6.2 on admission. WBC, BUN/Cr. trending down. Lastly, blood glucose was 329 on admission, being optimized. Carotid Doppler completed, small-moderate size soft plaque at the right common carotid bifurcation with intimal thickening and minimal plaque buildup on the left without evidence of hemodynamically significant stenosis bilaterally. Brain MRI without acute changes. Patient patient intubated on 02/18 , patient extubated on 02/23. Underlying derangements improving and receiving continued optimization. Repeat head ct compeleted 02/20 - moderate atrophy without gross acute intracranial pathology, chronic sinusitis and right mastoid effusion. Awake, alert and conversant this morning. Having ongoing medical optimization including now on Augmentin as antibiotic, requires physical therapy and possible placement. He is aware he's in the Hospital but took a moment to recognize which one. Did not know the date immediately but was able to determine after looking at the wall. Still with some cognitive slowing, she' ll follow up as an outpatient for further cognitive evaluation. Active Medications Amlodipine Besylate (Norvasc -) 10 mg PO DAILY [facility] Last Admin: 03/03/19 10:03 Dose: 10 mg Apixaban (Eliquis -) 5 mg PO BID [facility] Last Admin: 03/03/19 21:45 Dose: 5 mg Calcitriol (Rocaltrol -) 0.25 mcg PO DAILY [facility] Last Admin: 03/03/19 17:20 Dose: 0.25 mcg Calcium Acetate (Phoslo -) 667 mg PO TIDCM [facility] Last Admin: 03/04/19 08:39 Dose: 667 mg Clotrimazole (Lotrimin 1% Cream -) 1 applic TP BID [facility] Last Admin: 03/03/19 21:45 Dose: 1 applic Collagenase (Santyl -) 1 applic TP DAILY [facility]; Protocol Last Admin: 03/03/19 11:33 Dose: 1 applic Diltiazem HCl (Cardizem -) 30 mg PO TID [facility] Last Admin: 03/04/19 06:29 Dose: 30 mg Insulin Aspart (Novolog Vial Sliding Scale -) 1 vial SQ ACHS [facility]; Protocol Last Admin: 03/04/19 06:29 Dose: Not Given Lamotrigine (Lamictal -) 100 mg PO DAILY [facility] Last Admin: 03/03/19 16:22 Dose: 100 mg Losartan Potassium (Cozaar -) 50 mg PO DAILY [facility] Last Admin: 03/03/19 10:03 Dose: 50 mg Pantoprazole Sodium (Protonix -) 40 mg PO BID [facility] Last Admin: 03/03/19 21:46 Dose: 40 mg Tramadol HCl (Ultram -) 100 mg PO Q6H PRN PRN Reason: PAIN LEVEL 7 - 10 Last Admin: 03/03/19 22:23 Dose: 100 mg PHYSICAL EXAMINATION Vital Signs Period Temp Pulse Resp BP Sys/Verdugo Pulse Ox Last 24 Hr 98 F-98.6 F 70-95 17-20 111-150/62-76 94-98 GENERAL: intubated and sedated HEAD: Normal with no signs of trauma. EYES: Pupils equal, round and reactive to light, extraocular movements intact, sclera anicteric, conjunctiva clear. No lid lag. LUNGS: Breath sounds equal, HEART: Regular rate irregularly irregular rhythm, normal S1 and S2 without murmur. ABDOMEN: Soft, not distended, normoactive bowel sounds, skin breakdown on R side of abdomen with sloughing wounds and ecchymosis, very TTP, guarding, no rebound, no masses, reducible umbilical hernia. UPPER EXTREMITIES: 2+ pulses, warm, well-perfused. No cyanosis. No clubbing. No peripheral edema. Cuts on bilateral elbows LOWER EXTREMITIES: 2+ pulses, warm, well-perfused. No calf tenderness. No peripheral edema. NEUROLOGICAL: intuabted, response to voice, not moving extremities to command, response to pain PSYCHIATRIC: Cooperative. poor eye contact. SKIN: +pressure ulcer to the right hip, skin breakdown to the right side of the abdomen, Abrasions to the right side of the face. Warm and dry. CBCD WBC 6.5 K/mm3 (4.0-10.0) 03/03/19 07:30 RBC 3.62 M/mm3 (4.00-5.60) L 03/03/19 07:30 Hgb 11.4 GM/dL (11.7-16.9) L 03/03/19 07:30 Hct 33.1 % (35.4-49) L 03/03/19 07:30 MCV 91.6 fl (80-96) 03/03/19 07:30 MCHC 34.4 g/dl (32.0-35.9) 03/03/19 07:30 RDW 13.4 % (11.9-15.9) 03/03/19 07:30 Plt Count 267 K/MM3 (134-434) 03/03/19 07:30 MPV 9.1 fl (7.5-11.1) 03/03/19 07:30 CMP Sodium 136 mmol/L (136-145) 03/03/19 07:30 Potassium 4.4 mmol/L (3.5-5.1) 03/03/19 07:30 Chloride 104 mmol/L (98-107) 03/03/19 07:30 Carbon Dioxide 25 mmol/L (21-32) 03/03/19 07:30 Anion Gap 7 MMOL/L (8-16) L 03/03/19 07:30 BUN 26.2 mg/dL (7-18) H 03/03/19 07:30 Creatinine 1.4 mg/dL (0.55-1.3) H 03/03/19 07:30 Random Glucose 117 mg/dL (74-106) H 03/03/19 07:30 Calcium 9.2 mg/dL (8.5-10.1) 03/03/19 07:30 Total Bilirubin 0.7 mg/dL (0.2-1) 02/28/19 11:50 AST 22 U/L (15-37) 02/28/19 11:50 ALT 32 U/L (13-61) 02/28/19 11:50 Alkaline Phosphatase 65 U/L (45-117) 02/28/19 11:50 Total Protein 5.1 g/dl (6.4-8.2) L 02/28/19 11:50 Albumin 1.8 g/dl (3.4-5.0) L 02/28/19 11:50 CARDIAC ENZYMES Creatine Kinase 33 U/L (26-308) 03/01/19 07:50 Troponin I 0.04 ng/ml (0.00-0.05) 02/17/19 16:15 ASSESSMENT/PLAN: Mr. Burnette is a 68 y/o man with a pmhx of kidney disease, DM, HTN, HLD, obesity , bipolar disorder, depression, and anxiety who is BIBA after being found down in his apt for an unknown period of time. History obtained from chart as pt was confused on exam and was unable to answer questions. Per the patient's brother, the pt had an appointment with a friend I gave admission and when he did not show up the pt's friend called the police to do a wellness check (the pt did not name the friend). Police found the pt down in his apartment and he was brought to the hospital by EMS, unclear how long the pt was down for. I was contacted by the emergency department for further evaluation as the patient demonstrated an NIH stroke scale of 14. Time of onset was unknown and additionally patient with generalized confusion and weakness more so than just focal deficits and therefore concern for possible underlying toxic metabolic, infectious, diffuse process. CT head without acute changes but there was multiple metabolic derangements on lab work. White blood cell count was 12 on admission. BUN/creatinine was 252//6.2 on admission. WBC, BUN/Cr. trending down. Lastly, blood glucose was 329 on admission, being optimized. Carotid Doppler completed, small-moderate size soft plaque at the right common carotid bifurcation with intimal thickening and minimal plaque buildup on the left without evidence of hemodynamically significant stenosis bilaterally. Brain MRI without acute changes. Patient patient intubated on 02/18, patient extubated on 02/23. Underlying derangements improving and receiving continued optimization. Repeat head ct compeleted 02/20 - moderate atrophy without gross acute intracranial pathology, chronic sinusitis and right mastoid effusion. Awake, alert and conversant this morning. Having ongoing medical optimization including now on Augmentin as antibiotic, requires physical therapy and possible placement. Upper GI bleed evaluation and management also occurring. Diabetic ketoacidosis, monitor glucose, maintain euglycemic range. Monitor electrolytes, follow-up recommendations from nephrology, IV hydration as tolerated, derangements improved. Monitor blood pressure, maintain less than 140/90. Continue management optimization of potential for GI bleed. Antibiotics as per primary team, dispo and placement as per case management. Please have patient follow up as outpatient for cognitive evaluation.
[2019-03-04] MEDS ORDERED: PT OWN MED DRAWER 7, Y5N ONE (10:10)
[2019-03-04] MEDS: PANTOPRAZOLE 40 MG TABLET (FP) PO SCH ×2 (10:12→21:41)
[2019-03-04] MEDS: LOSARTAN POTASSIUM 50 MG TABLET (FP) PO SCH (10:12)
[2019-03-04] MEDS: CALCITRIOL 0.25 MCG CAPSULE (FP) PO SCH (10:12)
[2019-03-04] MEDS: amLODIPine BESYLATE 10 MG TABLET (FP) PO SCH (10:13)
[2019-03-04] MEDS: APIXABAN 5 MG TABLET PO SCH ×2 (10:13→21:41)
[2019-03-04] MEDS: lamoTRIgine 100 MG TABLET (FP) PO SCH (10:13)
[2019-03-04] MEDS: COLLAGENASE CLOSTRIDIUM HIST. 30 GRAMS TUBE TP SCH (10:15)
[2019-03-04] MEDS: CLOTRIMAZOLE 1% CREAM 15 GM TUBE TP SCH ×2 (10:16→21:41)
[2019-03-04] MEDS: traMADol HCL 50 MG TABLET PO PRN ×2 (11:14→17:29)
--- NOTE | 2019-03-04 11:31 | PN ---
Progress Note (short form) - Note Progress Note: PULMONARY s/p EGD showing duodenal ulcer. No shortness of breath, cough or wheezing. Vital Signs Period Temp Pulse Resp BP Sys/Verdugo Pulse Ox Last 24 Hr 97.9 F-98.6 F 70-95 17-20 111-146/62-76 94-98 Gen: NAD at rest Heart: RRR Lung: decreased breath sounds at the bases Abd: soft, nontender Ext: no edema CBC, BMP 03/03/19 07:30 03/03/19 07:30 Active Medications Amlodipine Besylate (Norvasc -) 10 mg PO DAILY [facility] Last Admin: 03/04/19 10:13 Dose: 10 mg Apixaban (Eliquis -) 5 mg PO BID [facility] Last Admin: 03/04/19 10:13 Dose: 5 mg Calcitriol (Rocaltrol -) 0.25 mcg PO DAILY [facility] Last Admin: 03/04/19 10:12 Dose: 0.25 mcg Calcium Acetate (Phoslo -) 667 mg PO TIDCM [facility] Last Admin: 03/04/19 08:39 Dose: 667 mg Clotrimazole (Lotrimin 1% Cream -) 1 applic TP BID [facility] Last Admin: 03/04/19 10:16 Dose: 1 applic Collagenase (Santyl -) 1 applic TP DAILY [facility]; Protocol Last Admin: 03/04/19 10:15 Dose: 1 applic Diltiazem HCl (Cardizem -) 30 mg PO TID [facility] Last Admin: 03/04/19 06:29 Dose: 30 mg Insulin Aspart (Novolog Vial Sliding Scale -) 1 vial SQ ACHS [facility]; Protocol Last Admin: 03/04/19 06:29 Dose: Not Given Lamotrigine (Lamictal -) 100 mg PO DAILY [facility] Last Admin: 03/04/19 10:13 Dose: 100 mg Losartan Potassium (Cozaar -) 50 mg PO DAILY [facility] Last Admin: 03/04/19 10:12 Dose: 50 mg Pantoprazole Sodium (Protonix -) 40 mg PO BID [facility] Last Admin: 03/04/19 10:12 Dose: 40 mg Tramadol HCl (Ultram -) 100 mg PO Q6H PRN PRN Reason: PAIN LEVEL 7 - 10 Last Admin: 03/04/19 11:14 Dose: 100 mg A/P Altered Mental Status/Syncope resolved s/p Acute Respiratory Failure Acute on Chronic Renal Failure requiring HD improving Rhabdomyolysis improved Paroxysmal Atrial Fibrillation HTN Hypercholesterolemia Anemia/Thrombocytopenia Necrotic Decubitus Ulcers s/p Debridement Duodenal Ulcer Anemia - monitor urine output, creatinine - rate control - continue anticoagulation - rehab/PT - DVT/GI prophylaxis
--- NOTE | 2019-03-04 12:02 | PN ---
Progress Note, Physician Chief Complaint: Mental status better Awake and alert History of Present Illness: Patient was seen and examined. Chart was reviewed Denies chest pain or SOB - Current Medication List Current Medications: Active Medications Amlodipine Besylate (Norvasc -) 10 mg PO DAILY [facility] Last Admin: 03/04/19 10:13 Dose: 10 mg Apixaban (Eliquis -) 5 mg PO BID [facility] Last Admin: 03/04/19 10:13 Dose: 5 mg Calcitriol (Rocaltrol -) 0.25 mcg PO DAILY [facility] Last Admin: 03/04/19 10:12 Dose: 0.25 mcg Calcium Acetate (Phoslo -) 667 mg PO TIDCM [facility] Last Admin: 03/04/19 08:39 Dose: 667 mg Clotrimazole (Lotrimin 1% Cream -) 1 applic TP BID [facility] Last Admin: 03/04/19 10:16 Dose: 1 applic Collagenase (Santyl -) 1 applic TP DAILY [facility]; Protocol Last Admin: 03/04/19 10:15 Dose: 1 applic Diltiazem HCl (Cardizem -) 30 mg PO TID [facility] Last Admin: 03/04/19 06:29 Dose: 30 mg Insulin Aspart (Novolog Vial Sliding Scale -) 1 vial SQ ACHS [facility]; Protocol Last Admin: 03/04/19 06:29 Dose: Not Given Lamotrigine (Lamictal -) 100 mg PO DAILY [facility] Last Admin: 03/04/19 10:13 Dose: 100 mg Losartan Potassium (Cozaar -) 50 mg PO DAILY [facility] Last Admin: 03/04/19 10:12 Dose: 50 mg Pantoprazole Sodium (Protonix -) 40 mg PO BID [facility] Last Admin: 03/04/19 10:12 Dose: 40 mg Tramadol HCl (Ultram -) 100 mg PO Q6H PRN PRN Reason: PAIN LEVEL 7 - 10 Last Admin: 03/04/19 11:14 Dose: 100 mg - Objective Vital Signs: Vital Signs Temperature 97.9 F 03/04/19 09:00 Pulse Rate 76 03/04/19 09:00 Respiratory Rate 20 03/04/19 09:00 Blood Pressure 144/68 03/04/19 09:00 O2 Sat by Pulse Oximetry (%) 97 03/03/19 22:00 Neck: Yes: Supple Cardiovascular: Yes: Regular Rate and Rhythm, S1, S2 Respiratory: Yes: CTA Bilaterally Gastrointestinal: Yes: Normal Bowel Sounds, Soft. No: Tenderness Edema: No Labs: CBC, BMP 03/03/19 07:30 03/03/19 07:30 INR, PTT INR 1.14 (0.83-1.09) H 03/02/19 06:10 Problem List - Problems (1) HTN (hypertension) Code(s): I10 - ESSENTIAL (PRIMARY) HYPERTENSION (2) Hypercholesterolemia Code(s): E78.00 - PURE HYPERCHOLESTEROLEMIA, UNSPECIFIED (3) Bipolar disorder Code(s): F31.9 - BIPOLAR DISORDER, UNSPECIFIED (4) Leukocytosis Code(s): D72.829 - ELEVATED WHITE BLOOD CELL COUNT, UNSPECIFIED (5) Renal failure Code(s): N19 - UNSPECIFIED KIDNEY FAILURE (6) Rhabdomyolysis Code(s): M62.82 - RHABDOMYOLYSIS Assessment/Plan 1. Questionable syncope and altered mental status - currently improved 2. Post acute respiratory failure 3. Coronary artery disease/visual coronary artery calcification, angina pectoris 4. Diastolic LV dysfunction with clinical class 0 NYHA classification LV failure 5. PAF currently in sinus rhythm [id number] score of either 2-3 currently on no A/C recent coffee ground emesis/GI bleed 6. History of HTN 7. Hypercholesterolemia 8. Acute on CKD requiring HD 9. Bipolar disorder, depression and anxiety 10. History of coffee ground emesis resolved etiology unclear 11. Rhabdomyolysis resolved PLAN: 1. Eliquis as tolerated 2. Monitor renal recovery 3. Continue Cardizem 30 mg TID and Losartan 50 mg QD 4. Antibiotics coverage 5. PT Andi Vázquez MD
--- NOTE | 2019-03-04 15:17 | PN ---
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 On reg/thin liquid. Diet, per GI. MRI noted. Pt reports numbness in right hand. It is moving more than it was a couple of days ago, per sister. Complaining of pain in bottom region. Oriented, slow to formulate but improving. Follows commands. Limited appetite but tolerating. Encourage Supplements between meals.. Consider RD consult re wound healing.
--- NOTE | 2019-03-04 15:37 | PN ---
Teaching Attending Note Name of Resident: Eb Harding ATTENDING PHYSICIAN STATEMENT I saw and evaluated the patient. I reviewed the resident's note and discussed the case with the resident. I agree with the resident's findings and plan as documented. SUBJECTIVE: Patient is confused. He is anxious about going to another facility. OBJECTIVE: Vital Signs Period Temp Pulse Resp BP Sys/Verdugo Pulse Ox Last 24 Hr 97.9 F-98.6 F 70-95 17-20 111-146/62-76 94-98 HEART: S1S2, RRR LUNGS: Clear ABDOMEN: Obese, soft, non-tender, non-distended, normal BS EXTREMITIES: No edema Laboratory Results - last 24 hr 03/03/19 03/03/19 03/04/19 17:17 21:42 06:26 POC Glucometer 159 116 125 03/04/19 12:01 POC Glucometer 133 Current Medications Generic Name Dose Route Start Last Admin Trade Name Freq PRN Reason Stop Dose Admin Amlodipine Besylate 10 mg 03/02/19 14:15 03/04/19 10:13 Norvasc - PO 10 mg DAILY [facility] Administration Apixaban 5 mg 03/03/19 22:00 03/04/19 10:13 Eliquis - PO 5 mg BID [facility] Administration Calcitriol 0.25 mcg 02/26/19 10:00 03/04/19 10:12 Rocaltrol - PO 0.25 mcg DAILY [facility] Administration Calcium Acetate 667 mg 02/26/19 08:00 03/04/19 12:04 Phoslo - PO 667 mg TIDCM [facility] Administration Clotrimazole 1 applic 02/26/19 10:00 03/04/19 10:16 Lotrimin 1% Cream - TP 1 applic BID [facility] Administration Collagenase 1 applic 02/25/19 15:15 03/04/19 10:15 Santyl - TP 1 applic DAILY [facility] Administration Protocol Diltiazem HCl 30 mg 02/26/19 06:00 03/04/19 14:42 Cardizem - PO 30 mg TID [facility] Administration Insulin Aspart 1 vial 02/26/19 07:00 03/04/19 12:22 Novolog Vial Sliding Scale - SQ Not Given ACHS [facility] Protocol Lamotrigine 100 mg 02/26/19 10:00 03/04/19 10:13 Lamictal - PO 100 mg DAILY [facility] Administration Losartan Potassium 50 mg 02/28/19 12:00 03/04/19 10:12 Cozaar - PO 50 mg DAILY [facility] Administration Pantoprazole Sodium 40 mg 03/03/19 22:00 03/04/19 10:12 Protonix - PO 40 mg BID [facility] Administration Tramadol HCl 100 mg 03/02/19 10:08 03/04/19 11:14 Ultram - PO 100 mg Q6H PRN Administration PAIN LEVEL 7 - 10 ASSESSMENT AND PLAN: 68 year old male with history of DM 2, HTN, HLD, CKD 3, Obesity, Bipolar Disorder, Depression, Anxiety, lives alone, found on floor of his house by his brother, noted to have MSITA, DKA, Multiple electrolyte abnormalities, AMS. 1. Acute hypercapneic respiratory failure - Resolved - Extubated 02/23 2. Septic shock secondary to pneumonia, likely aspiration - Resolved - Completed course of Zosyn/Augmentin 3. Syncope 4. Acute metabolic encephalopathy - Improving 5. Upper GI bleed - EGD 03/03 showed PUD - Continue Protonix bid and no contraindication to starting Eliquis given his stable H.H on therapeutic Heparin drip for the past week. 6. Atrial fibrillation with RVR - Remains in SR - Continue Cardizem, Eliquis 7. Acute kidney injury - Resolved 8. Stage 3 CKD - Stable 9. Hypokalemia - Improved 10. Hypocalcemia - Resolved 11. DKA - Resolved 12. Type 2 DM - Continue Novolog sliding scale 13. Bipolar disorder - Continue Lamictal 14. HTN - Continue Norvasc, Cardizem, Cozaar 15. Multiple pressure ulcers - s/p excisional debridement of necrotic ulcers of left knee and right hip - Continue wound care 16. Disposition - Plan for discharge to short term rehab when bed available
--- NOTE | 2019-03-04 15:39 | PN ---
Physical Exam: SUBJECTIVE: Patient seen and examined in the morning. No acute events overnight. No complaints of chest pain, no shortness of breath, no abdominal pain. OBJECTIVE: Vital Signs Period Temp Pulse Resp BP Sys/Verdugo Pulse Ox Last 24 Hr 97.9 F-98.6 F 70-94 19-20 128-146/62-74 95-97 GENERAL: The patient is alert and oriented to person, place, and time, responsive and cooperative HEAD: Normal with no signs of trauma. EYES: DANIELITO, EOMI NECK: Trachea midline LUNGS: Breath sounds equal, clear to auscultation bilaterally, no wheezes, no crackles HEART: RRR, no murmurs or rubs ABDOMEN: Soft, nontender, nondistended, normoactive bowel sounds, no guarding, no rebound, no masses. EXTREMITIES: 2+ pulses, warm, well-perfused, no edema. NEUROLOGICAL: Motor 4/5 on right, 5/5 on left. Sensations intact B/L Laboratory Results - last 24 hr 03/03/19 03/03/19 03/04/19 17:17 21:42 06:26 POC Glucometer 159 116 125 03/04/19 12:01 POC Glucometer 133 Active Medications Generic Name Dose Route Start Last Admin Trade Name Freq PRN Reason Stop Dose Admin Amlodipine Besylate 10 mg 03/02/19 14:15 03/04/19 10:13 Norvasc - PO 10 mg DAILY [facility] Administration Apixaban 5 mg 03/03/19 22:00 03/04/19 10:13 Eliquis - PO 5 mg BID [facility] Administration Calcitriol 0.25 mcg 02/26/19 10:00 03/04/19 10:12 Rocaltrol - PO 0.25 mcg DAILY [facility] Administration Calcium Acetate 667 mg 02/26/19 08:00 03/04/19 12:04 Phoslo - PO 667 mg TIDCM [facility] Administration Clotrimazole 1 applic 02/26/19 10:00 03/04/19 10:16 Lotrimin 1% Cream - TP 1 applic BID [facility] Administration Collagenase 1 applic 02/25/19 15:15 03/04/19 10:15 Santyl - TP 1 applic DAILY [facility] Administration Protocol Diltiazem HCl 30 mg 02/26/19 06:00 03/04/19 14:42 Cardizem - PO 30 mg TID [facility] Administration Insulin Aspart 1 vial 02/26/19 07:00 03/04/19 12:22 Novolog Vial Sliding Scale - SQ Not Given ACHS [facility] Protocol Lamotrigine 100 mg 02/26/19 10:00 03/04/19 10:13 Lamictal - PO 100 mg DAILY [facility] Administration Losartan Potassium 50 mg 02/28/19 12:00 03/04/19 10:12 Cozaar - PO 50 mg DAILY [facility] Administration Pantoprazole Sodium 40 mg 03/03/19 22:00 03/04/19 10:12 Protonix - PO 40 mg BID [facility] Administration Tramadol HCl 100 mg 03/02/19 10:08 03/04/19 11:14 Ultram - PO 100 mg Q6H PRN Administration PAIN LEVEL 7 - 10 ASSESSMENT/PLAN: 68 M with PMH of DM, HTN, HLD, CKD, obesity, bipolar disorder, depression, and anxiety, who was brought to ED after being found down on the floor by brother with AMS. 1)Acute Hypercapneic Respiratory Failure and Septic Shock secondary to bilateral pneumonia -CT A/P showed bilateral consolidation. -Leukocytosis resolved -Augmentin 500 mg PO Daily for 3 days. 3/3 days completed today 2) AMS -Likely a toxic metabolic encephalopathy from uremia or electrolyte abnormalities or DKA. Has no recollection of what occurred before admission. -MRI negative -CT head negative -F/U repeat CT Head negative for bleeds -Urine culture negative -Sliding scale insulin -Endocrinology consulted, appreciate recs -Neurology consulted, appreciate recs 3)Coffee ground emesis -Endoscopy completed, -Ulcer seen, biopsy sent -Protonix 40 mg IV BID 4) SMITA -No more hemodialysis required. -Rhabdomyolysis resolved -Renal U/S unremarkable -Nephrology consulted, appreciate recs 5)New onset Afib -Cardizem PO 30 mg TID PRN -Eliquis 5 mg PO BID -Cardiology consulted, appreciate recs -Echo shows normal EF -Normal sinus now 6) Wounds on lower chest, upper abdomen, hip -S/P Debridement. -Wet to dry dressing 7)History of Bipolar disorder -Holding home meds 8) Chronic pain in legs -Unable to confirm dose of Lyrica -Ultram 100 mg PO Q6H PRN F:Oral Hydration E: Trend CMP. Replete as needed N: Regular diet DVT Prophylaxis: Eliquis 5mg PO BID Dispo: Pending SNF referrals Visit type - Emergency Visit Emergency Visit: Yes ED Registration Date: 02/16/19 Care time: The patient presented to the Emergency Department on the above date and was hospitalized for further evaluation of their emergent condition. - New Patient This patient is new to me today: No - Critical Care Critical Care patient: No ATTENDING PHYSICIAN STATEMENT I saw and evaluated the patient. I reviewed the resident's note and discussed the case with the resident. I agree with the resident's findings and plan as documented. SUBJECTIVE: OBJECTIVE: ASSESSMENT AND PLAN:
--- NOTE | 2019-03-04 16:04 | PN ---
Progress Note, Physician History of Present Illness: Pt seen and examined at bedside. He is awake and appears comfortable. - Current Medication List Current Medications: Active Medications Amlodipine Besylate (Norvasc -) 10 mg PO DAILY [facility] Last Admin: 03/04/19 10:13 Dose: 10 mg Apixaban (Eliquis -) 5 mg PO BID [facility] Last Admin: 03/04/19 10:13 Dose: 5 mg Calcitriol (Rocaltrol -) 0.25 mcg PO DAILY [facility] Last Admin: 03/04/19 10:12 Dose: 0.25 mcg Calcium Acetate (Phoslo -) 667 mg PO TIDCM [facility] Last Admin: 03/04/19 12:04 Dose: 667 mg Clotrimazole (Lotrimin 1% Cream -) 1 applic TP BID [facility] Last Admin: 03/04/19 10:16 Dose: 1 applic Collagenase (Santyl -) 1 applic TP DAILY [facility]; Protocol Last Admin: 03/04/19 10:15 Dose: 1 applic Diltiazem HCl (Cardizem -) 30 mg PO TID [facility] Last Admin: 03/04/19 14:42 Dose: 30 mg Insulin Aspart (Novolog Vial Sliding Scale -) 1 vial SQ ACHS [facility]; Protocol Last Admin: 03/04/19 12:22 Dose: Not Given Lamotrigine (Lamictal -) 100 mg PO DAILY [facility] Last Admin: 03/04/19 10:13 Dose: 100 mg Losartan Potassium (Cozaar -) 50 mg PO DAILY [facility] Last Admin: 03/04/19 10:12 Dose: 50 mg Pantoprazole Sodium (Protonix -) 40 mg PO BID [facility] Last Admin: 03/04/19 10:12 Dose: 40 mg Tramadol HCl (Ultram -) 100 mg PO Q6H PRN PRN Reason: PAIN LEVEL 7 - 10 Last Admin: 03/04/19 11:14 Dose: 100 mg - Objective Vital Signs: Vital Signs Temperature 97.9 F 03/04/19 15:26 Pulse Rate 94 H 03/04/19 15:26 Respiratory Rate 20 03/04/19 15:26 Blood Pressure 131/74 03/04/19 15:26 O2 Sat by Pulse Oximetry (%) 97 03/04/19 09:00 Constitutional: Yes: Calm Eyes: Yes: Conjunctiva Clear HENT: Yes: Atraumatic Cardiovascular: Yes: S1, S2 Respiratory: Yes: CTA Bilaterally Gastrointestinal: Yes: Soft Genitourinary: Yes: Incontinence Musculoskeletal: Yes: WNL Edema: No Neurological: Yes: Oriented Psychiatric: Yes: Oriented Labs: CBC, BMP 03/03/19 07:30 03/03/19 07:30 INR, PTT INR 1.14 (0.83-1.09) H 03/02/19 06:10 Assessment/Plan Current Medications Generic Name Dose Route Start Last Admin Trade Name Freq PRN Reason Stop Dose Admin Amlodipine Besylate 10 mg 03/02/19 14:15 03/04/19 10:13 Norvasc - PO 10 mg DAILY [facility] Administration Apixaban 5 mg 03/03/19 22:00 03/04/19 10:13 Eliquis - PO 5 mg BID [facility] Administration Calcitriol 0.25 mcg 02/26/19 10:00 03/04/19 10:12 Rocaltrol - PO 0.25 mcg DAILY [facility] Administration Calcium Acetate 667 mg 02/26/19 08:00 03/04/19 12:04 Phoslo - PO 667 mg TIDCM [facility] Administration Clotrimazole 1 applic 02/26/19 10:00 03/04/19 10:16 Lotrimin 1% Cream - TP 1 applic BID [facility] Administration Collagenase 1 applic 02/25/19 15:15 03/04/19 10:15 Santyl - TP 1 applic DAILY [facility] Administration Protocol Diltiazem HCl 30 mg 02/26/19 06:00 03/04/19 14:42 Cardizem - PO 30 mg TID [facility] Administration Insulin Aspart 1 vial 02/26/19 07:00 03/04/19 12:22 Novolog Vial Sliding Scale - SQ Not Given ACHS [facility] Protocol Lamotrigine 100 mg 02/26/19 10:00 03/04/19 10:13 Lamictal - PO 100 mg DAILY [facility] Administration Losartan Potassium 50 mg 02/28/19 12:00 03/04/19 10:12 Cozaar - PO 50 mg DAILY [facility] Administration Pantoprazole Sodium 40 mg 03/03/19 22:00 03/04/19 10:12 Protonix - PO 40 mg BID [facility] Administration Tramadol HCl 100 mg 03/02/19 10:08 03/04/19 11:14 Ultram - PO 100 mg Q6H PRN Administration PAIN LEVEL 7 - 10 Impression 1. SMITA 2. rhabdo 3. dka 4. altered mental status 5. hyperkalemia 6. resp failure Plan - can d/c phoslo - can d/c calcitriol - repeat phos and ca tomorrow - check pth level - cpk normalized
--- NOTE | 2019-03-04 17:30 | PN ---
Progress Note, Physician Chief Complaint: sitting in bed no complaint - Current Medication List Current Medications: Active Medications Amlodipine Besylate (Norvasc -) 10 mg PO DAILY [facility] Last Admin: 03/04/19 10:13 Dose: 10 mg Apixaban (Eliquis -) 5 mg PO BID [facility] Last Admin: 03/04/19 10:13 Dose: 5 mg Clotrimazole (Lotrimin 1% Cream -) 1 applic TP BID [facility] Last Admin: 03/04/19 10:16 Dose: 1 applic Collagenase (Santyl -) 1 applic TP DAILY [facility]; Protocol Last Admin: 03/04/19 10:15 Dose: 1 applic Diltiazem HCl (Cardizem -) 30 mg PO TID [facility] Last Admin: 03/04/19 14:42 Dose: 30 mg Insulin Aspart (Novolog Vial Sliding Scale -) 1 vial SQ ACHS [facility]; Protocol Last Admin: 03/04/19 16:58 Dose: Not Given Lamotrigine (Lamictal -) 100 mg PO DAILY [facility] Last Admin: 03/04/19 10:13 Dose: 100 mg Losartan Potassium (Cozaar -) 50 mg PO DAILY [facility] Last Admin: 03/04/19 10:12 Dose: 50 mg Pantoprazole Sodium (Protonix -) 40 mg PO BID [facility] Last Admin: 03/04/19 10:12 Dose: 40 mg Tramadol HCl (Ultram -) 100 mg PO Q6H PRN PRN Reason: PAIN LEVEL 7 - 10 Last Admin: 03/04/19 11:14 Dose: 100 mg - Objective Vital Signs: Vital Signs Temperature 97.9 F 03/04/19 15:26 Pulse Rate 94 H 03/04/19 15:26 Respiratory Rate 20 03/04/19 15:26 Blood Pressure 131/74 03/04/19 15:26 O2 Sat by Pulse Oximetry (%) 97 03/04/19 09:00 Constitutional: Yes: Calm Eyes: Yes: EOM Intact HENT: Yes: Normocephalic Neck: Yes: Trachea Midline Cardiovascular: Yes: Regular Rate and Rhythm Respiratory: Yes: CTA Bilaterally Gastrointestinal: Yes: Normal Bowel Sounds ...Rectal Exam: Yes: Deferred Breast(s): Yes: WNL Musculoskeletal: Yes: Joint Swelling, Muscle Weakness Extremities: Yes: Cold, Delayed Capillary Refill Edema: Yes Edema: LLE: 1+, RLE: 1+ Neurological: Yes: Alert Labs: CBC, BMP 03/03/19 07:30 03/03/19 07:30 INR, PTT INR 1.14 (0.83-1.09) H 03/02/19 06:10 Problem List - Problems (1) DKA (diabetic ketoacidoses) Problems reviewed: Yes Code(s): E11.10 - TYPE 2 DIABETES MELLITUS WITH KETOACIDOSIS WITHOUT COMA Qualifiers: Diabetes mellitus type: type 2 (2) HTN (hypertension) Code(s): I10 - ESSENTIAL (PRIMARY) HYPERTENSION (3) Hypercholesterolemia Code(s): E78.00 - PURE HYPERCHOLESTEROLEMIA, UNSPECIFIED (4) Leukocytosis Code(s): D72.829 - ELEVATED WHITE BLOOD CELL COUNT, UNSPECIFIED (5) Renal failure Code(s): N19 - UNSPECIFIED KIDNEY FAILURE (6) Rhabdomyolysis Code(s): M62.82 - RHABDOMYOLYSIS (7) Uremia Code(s): N19 - UNSPECIFIED KIDNEY FAILURE Assessment/Plan Current Active Problems Bipolar disorder (Chronic) HTN (hypertension) (Chronic) Hypercholesterolemia (Chronic) 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) DMT2,ckd Laboratory Tests 03/03/19 03/03/19 03/03/19 07:30 07:30 11:31 WBC 6.5 RBC 3.62 L Hct 33.1 L MCV 91.6 MCHC 34.4 Plt Count 267 Sodium 136 Potassium 4.4 Chloride 104 Carbon Dioxide 25 Anion Gap 7 L BUN 26.2 H Creatinine 1.4 H Est GFR (CKD-EPI)AfAm 59.83 POC Glucometer 109 03/03/19 03/03/19 03/04/19 17:17 21:42 06:26 WBC RBC Hct MCV MCHC Plt Count Sodium Potassium Chloride Carbon Dioxide Anion Gap BUN Creatinine Est GFR (CKD-EPI)AfAm POC Glucometer 159 116 125 03/04/19 12:01 WBC RBC Hct MCV MCHC Plt Count Sodium Potassium Chloride Carbon Dioxide Anion Gap BUN Creatinine Est GFR (CKD-EPI)AfAm POC Glucometer 133 plan; continue monitor bgm may require diet and adjustment given only slight coverage needed
[2019-03-04] MEDS ORDERED: INSULIN (NOVOLOG) ASPART 100 UNITS/ML 10ML VIAL ONE (21:10)
[2019-03-05] MEDS: traMADol HCL 50 MG TABLET PO PRN ×3 (03:26→21:25)
[2019-03-05] MEDS: dilTIAZem HCL 30 MG TABLET (FP) PO SCH ×2 (06:19→13:31)
[2019-03-05] MEDS: INSULIN SLIDING SCALE (NOVOLOG) 1 VIAL SQ SCH ×4 (06:19→21:20)
[2019-03-05 08:37] LABS: EOS % 3.3 % (0-4.5); HEMATOCRIT 34.1 % (35.4-49); HEMOGLOBIN 11.7 GM/dL (11.7-16.9); LYMPH % 11.8 % (8-40); MCH 31.6 pg (25.7-33.7); MCHC 34.2 g/dl (32.0-35.9); MEAN CELL VOLUME 92.3 fl (80-96); MEAN PLT VOLUME 8.8 fl (7.5-11.1); MONO % 7.9 % (3.8-10.2); PLATELET COUNT 272 K/MM3 (134-434); RDW 13.9 % (11.9-15.9); WHITE BLOOD COUNT 5.3 K/mm3 (4.0-10.0)
--- NOTE | 2019-03-05 08:45 | PN ---
Progress Note (short form) - Note Progress Note: Neurology CHIEF COMPLAINT: CVA HISTORY OF PRESENT ILLNESS: Mr. Burnette is a 68 y/o man with a pmhx of kidney disease, DM, HTN, HLD, obesity, bipolar disorder, depression, and anxiety who is BIBA after being found down in his apt for an unknown period of time. History obtained from chart as pt was confused on exam and was unable to answer questions. Per the patient's brother, the pt had an appointment with a friend I gave admission and when he did not show up the pt's friend called the police to do a wellness check (the pt did not name the friend). Police found the pt down in his apartment and he was brought to the hospital by EMS, unclear how long the pt was down for. I was contacted by the emergency department for further evaluation as the patient demonstrated an NIH stroke scale of 14. Time of onset was unknown and additionally patient with generalized confusion and weakness more so than just focal deficits and therefore concern for possible underlying toxic metabolic, infectious, diffuse process. CT head without acute changes but there was multiple metabolic derangements on lab work. White blood cell count was 12 on admission. BUN/creatinine was 252//6.2 on admission. WBC, BUN/Cr. trending down. Lastly, blood glucose was 329 on admission, being optimized. Carotid Doppler completed, small-moderate size soft plaque at the right common carotid bifurcation with intimal thickening and minimal plaque buildup on the left without evidence of hemodynamically significant stenosis bilaterally. Brain MRI without acute changes. Patient patient intubated on 02/18 , patient extubated on 02/23. Underlying derangements improving and receiving continued optimization. Repeat head ct compeleted 02/20 - moderate atrophy without gross acute intracranial pathology, chronic sinusitis and right mastoid effusion. Awake, alert and conversant this morning. Neurologically, seems to be at baseline although during my evaluation and resident was also present at bedside, patient with some tangential thoughts, likely related to underlying psych conditions, should have psychiatric follow-up as well. Active Medications Amlodipine Besylate (Norvasc -) 10 mg PO DAILY [facility] Last Admin: 03/04/19 10:13 Dose: 10 mg Apixaban (Eliquis -) 5 mg PO BID [facility] Last Admin: 03/04/19 21:41 Dose: 5 mg Clotrimazole (Lotrimin 1% Cream -) 1 applic TP BID [facility] Last Admin: 03/04/19 21:41 Dose: 1 applic Collagenase (Santyl -) 1 applic TP DAILY [facility]; Protocol Last Admin: 03/04/19 10:15 Dose: 1 applic Diltiazem HCl (Cardizem -) 30 mg PO TID [facility] Last Admin: 03/05/19 06:19 Dose: 30 mg Duloxetine HCl (Cymbalta -) 60 mg PO DAILY [facility] Insulin Aspart (Novolog Vial Sliding Scale -) 1 vial SQ ACHS [facility]; Protocol Last Admin: 03/05/19 06:19 Dose: Not Given Lamotrigine (Lamictal -) 100 mg PO DAILY [facility] Last Admin: 03/04/19 10:13 Dose: 100 mg Losartan Potassium (Cozaar -) 50 mg PO DAILY [facility] Last Admin: 03/04/19 10:12 Dose: 50 mg Pantoprazole Sodium (Protonix -) 40 mg PO BID [facility] Last Admin: 03/04/19 21:41 Dose: 40 mg Tramadol HCl (Ultram -) 100 mg PO Q6H PRN PRN Reason: PAIN LEVEL 7 - 10 Last Admin: 03/05/19 03:26 Dose: 100 mg PHYSICAL EXAMINATION Vital Signs Period Temp Pulse Resp BP Sys/Verdugo Pulse Ox Last 24 Hr 97.7 F-98.9 F 71-94 20-20 128-145/68-76 97-98 GENERAL: intubated and sedated HEAD: Normal with no signs of trauma. EYES: Pupils equal, round and reactive to light, extraocular movements intact, sclera anicteric, conjunctiva clear. No lid lag. LUNGS: Breath sounds equal, HEART: Regular rate irregularly irregular rhythm, normal S1 and S2 without murmur. ABDOMEN: Soft, not distended, normoactive bowel sounds, skin breakdown on R side of abdomen with sloughing wounds and ecchymosis, very TTP, guarding, no rebound, no masses, reducible umbilical hernia. UPPER EXTREMITIES: 2+ pulses, warm, well-perfused. No cyanosis. No clubbing. No peripheral edema. Cuts on bilateral elbows LOWER EXTREMITIES: 2+ pulses, warm, well-perfused. No calf tenderness. No peripheral edema. NEUROLOGICAL: intuabted, response to voice, not moving extremities to command, response to pain PSYCHIATRIC: Cooperative. poor eye contact. SKIN: +pressure ulcer to the right hip, skin breakdown to the right side of the abdomen, Abrasions to the right side of the face. Warm and dry. CBCD WBC 5.3 K/mm3 (4.0-10.0) 03/05/19 06:40 RBC 3.70 M/mm3 (4.00-5.60) L 03/05/19 06:40 Hgb 11.7 GM/dL (11.7-16.9) 03/05/19 06:40 Hct 34.1 % (35.4-49) L 03/05/19 06:40 MCV 92.3 fl (80-96) 03/05/19 06:40 MCHC 34.2 g/dl (32.0-35.9) 03/05/19 06:40 RDW 13.9 % (11.9-15.9) 03/05/19 06:40 Plt Count 272 K/MM3 (134-434) 03/05/19 06:40 MPV 8.8 fl (7.5-11.1) 03/05/19 06:40 CMP Sodium 136 mmol/L (136-145) 03/03/19 07:30 Potassium 4.4 mmol/L (3.5-5.1) 03/03/19 07:30 Chloride 104 mmol/L (98-107) 03/03/19 07:30 Carbon Dioxide 25 mmol/L (21-32) 03/03/19 07:30 Anion Gap 7 MMOL/L (8-16) L 03/03/19 07:30 BUN 26.2 mg/dL (7-18) H 03/03/19 07:30 Creatinine 1.4 mg/dL (0.55-1.3) H 03/03/19 07:30 Random Glucose 117 mg/dL (74-106) H 03/03/19 07:30 Calcium 9.2 mg/dL (8.5-10.1) 03/03/19 07:30 Total Bilirubin 0.7 mg/dL (0.2-1) 02/28/19 11:50 AST 22 U/L (15-37) 02/28/19 11:50 ALT 32 U/L (13-61) 02/28/19 11:50 Alkaline Phosphatase 65 U/L (45-117) 02/28/19 11:50 Total Protein 5.1 g/dl (6.4-8.2) L 02/28/19 11:50 Albumin 1.8 g/dl (3.4-5.0) L 02/28/19 11:50 CARDIAC ENZYMES Creatine Kinase 33 U/L (26-308) 03/01/19 07:50 Troponin I 0.04 ng/ml (0.00-0.05) 02/17/19 16:15 ASSESSMENT/PLAN: Mr. Burnette is a 68 y/o man with a pmhx of kidney disease, DM, HTN, HLD, obesity , bipolar disorder, depression, and anxiety who is BIBA after being found down in his apt for an unknown period of time. History obtained from chart as pt was confused on exam and was unable to answer questions. Per the patient's brother, the pt had an appointment with a friend I gave admission and when he did not show up the pt's friend called the police to do a wellness check (the pt did not name the friend). Police found the pt down in his apartment and he was brought to the hospital by EMS, unclear how long the pt was down for. I was contacted by the emergency department for further evaluation as the patient demonstrated an NIH stroke scale of 14. Time of onset was unknown and additionally patient with generalized confusion and weakness more so than just focal deficits and therefore concern for possible underlying toxic metabolic, infectious, diffuse process. CT head without acute changes but there was multiple metabolic derangements on lab work. White blood cell count was 12 on admission. BUN/creatinine was 252//6.2 on admission. WBC, BUN/Cr. trending down. Lastly, blood glucose was 329 on admission, being optimized. Carotid Doppler completed, small-moderate size soft plaque at the right common carotid bifurcation with intimal thickening and minimal plaque buildup on the left without evidence of hemodynamically significant stenosis bilaterally. Brain MRI without acute changes. Patient patient intubated on 02/18, patient extubated on 02/23. Underlying derangements improving and receiving continued optimization. Repeat head ct compeleted 02/20 - moderate atrophy without gross acute intracranial pathology, chronic sinusitis and right mastoid effusion. Awake, alert and conversant this morning. Having ongoing medical optimization including now on Augmentin as antibiotic, requires physical therapy and possible placement. Upper GI bleed evaluation and management also occurring. Diabetic ketoacidosis, monitor glucose, maintain euglycemic range. Monitor electrolytes, follow-up recommendations from nephrology, IV hydration as tolerated, derangements improved. Monitor blood pressure, maintain less than 140/90. Continue management optimization of potential for GI bleed. Antibiotics as per primary team, dispo and placement as per case management. Please have patient follow up as outpatient for cognitive evaluation. Neurologically, seems to be at baseline although during my evaluation and resident was also present at bedside, patient with some tangential thoughts, likely related to underlying psych conditions, should have psychiatric follow- up as well.
[2019-03-05 08:53] LABS: ALBUMIN 2.1 g/dl (3.4-5.0); BILIRUBIN,TOTAL 0.7 mg/dL (0.2-1); BLOOD UREA NITROGEN 19.7 mg/dL (7-18); CALCIUM 9.4 mg/dL (8.5-10.1); CREATININE 1.3 mg/dL (0.55-1.3); POTASSIUM 4.3 mmol/L (3.5-5.1); TOT PROT 5.8 g/dl (6.4-8.2)
[2019-03-05] MEDS: LOSARTAN POTASSIUM 50 MG TABLET (FP) PO SCH (10:08)
[2019-03-05] MEDS: DULoxetine HCL 30 MG CAPSULE.DR PO SCH (10:08)
[2019-03-05] MEDS: PANTOPRAZOLE 40 MG TABLET (FP) PO SCH ×2 (10:08→21:16)
[2019-03-05] MEDS: CLOTRIMAZOLE 1% CREAM 15 GM TUBE TP SCH ×2 (10:09→21:16)
[2019-03-05] MEDS: APIXABAN 5 MG TABLET PO SCH ×2 (10:09→21:16)
[2019-03-05] MEDS: lamoTRIgine 100 MG TABLET (FP) PO SCH (10:09)
[2019-03-05] MEDS: amLODIPine BESYLATE 10 MG TABLET (FP) PO SCH (10:09)
[2019-03-05] MEDS: COLLAGENASE CLOSTRIDIUM HIST. 30 GRAMS TUBE TP SCH (10:10)
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
--- NOTE | 2019-03-05 16:12 | PN ---
Progress Note, Physician History of Present Illness: No complaints, awaiting SNF transfer. Remains in NSR. - Current Medication List Current Medications: Active Medications Amlodipine Besylate (Norvasc -) 10 mg PO DAILY [facility] Last Admin: 03/05/19 10:09 Dose: 10 mg Apixaban (Eliquis -) 5 mg PO BID [facility] Last Admin: 03/05/19 10:09 Dose: 5 mg Clotrimazole (Lotrimin 1% Cream -) 1 applic TP BID [facility] Last Admin: 03/05/19 10:09 Dose: 1 applic Collagenase (Santyl -) 1 applic TP DAILY [facility]; Protocol Last Admin: 03/05/19 10:10 Dose: 1 applic Diltiazem HCl (Cardizem -) 30 mg PO TID [facility] Last Admin: 03/05/19 13:31 Dose: 30 mg Duloxetine HCl (Cymbalta -) 60 mg PO DAILY [facility] Last Admin: 03/05/19 10:08 Dose: 60 mg Insulin Aspart (Novolog Vial Sliding Scale -) 1 vial SQ ACHS [facility]; Protocol Last Admin: 03/05/19 11:45 Dose: 2 units Lamotrigine (Lamictal -) 100 mg PO DAILY [facility] Last Admin: 03/05/19 10:09 Dose: 100 mg Losartan Potassium (Cozaar -) 50 mg PO DAILY [facility] Last Admin: 03/05/19 10:08 Dose: 50 mg Pantoprazole Sodium (Protonix -) 40 mg PO BID [facility] Last Admin: 03/05/19 10:08 Dose: 40 mg Tramadol HCl (Ultram -) 100 mg PO Q6H PRN PRN Reason: PAIN LEVEL 7 - 10 Last Admin: 03/05/19 10:08 Dose: 100 mg - Objective Vital Signs: Vital Signs Temperature 98.3 F 03/05/19 13:24 Pulse Rate 79 03/05/19 13:24 Respiratory Rate 20 03/05/19 13:24 Blood Pressure 142/81 03/05/19 13:24 O2 Sat by Pulse Oximetry (%) 98 03/05/19 10:00 Constitutional: Yes: No Distress, Calm Neck: Yes: Supple Cardiovascular: Yes: Regular Rate and Rhythm Respiratory: Yes: Regular, Diminished Gastrointestinal: Yes: Normal Bowel Sounds, Soft Edema: No Labs: CBC, BMP 03/05/19 06:40 03/05/19 06:40 INR, PTT INR 1.14 (0.83-1.09) H 03/02/19 06:10 Problem List - Problems (1) Paroxysmal atrial fibrillation with rapid ventricular response Code(s): I48.0 - PAROXYSMAL ATRIAL FIBRILLATION Assessment/Plan 02/17/2019 Echo: Normal LV size with mild cLVH, LVEF 60-65%, normal LA size, mild ao 4.0 cm 02/25/2019 Brain MRI: No acute or subacute stroke Problem List - Problems (1) HTN (hypertension) Code(s): I10 - ESSENTIAL (PRIMARY) HYPERTENSION (2) Hypercholesterolemia Code(s): E78.00 - PURE HYPERCHOLESTEROLEMIA, UNSPECIFIED (3) Bipolar disorder Code(s): F31.9 - BIPOLAR DISORDER, UNSPECIFIED (5) Renal failure Code(s): N19 - UNSPECIFIED KIDNEY FAILURE (6) Rhabdomyolysis Code(s): M62.82 - RHABDOMYOLYSIS Assessment/Plan 1. Questionable syncope, altered mental status resolved 2. s/p acute respiratory failure 3. Coronary artery disease/visual coronary artery calcification angina pectoris 4. Diastolic LV dysfunction with clinical class 0 NYHA classification LV failure 5. PAF currently in sinus rhythm [id number] score of either 2-3 on Eliquis 6. History of HTN 7. Hypercholesterolemia 8. Acute on CKD required HD resolving 9. Bipolar disorder, depression and anxiety 10. History of coffee ground emesis -> duodenal ulcer, hemorrhagic gastritis 11. Rhabdomyolysis resolved PLAN: 1. Eliquis 5 bid on protonix as hemostasis has been achieved 2. Monitor renal recovery off HD per renal service 3. Change Norvasc 10 qd to Cardizem CD 120 qd, losartan 50 qd 4. Completed oral antibiotics coverage 5. Plan for [facility] transfer
--- NOTE | 2019-03-05 17:07 | PATH ---
Surgical Pathology Report Patient Name: JORDANA MALONE [facility]. Rec. #: [id number] /Age/Gender: 1950 (Age: 68) / M Account: [id number] Location: [address] [place] [address]/[facility] Taken: 03/03/2019 Received: 03/04/2019 Reported: 03/05/2019 Physicians: Feliz Marie MD Specimen(s) Received BX STOMACH Clinical History Coffee-ground emesis Postoperative diagnosis: Duodenal ulcer Final Diagnosis STOMACH, BIOPSY: GASTRIC MUCOSA WITH REACTIVE GASTROPATHY. IMMUNOSTAIN FOR H. PYLORI IS NEGATIVE. NEGATIVE FOR INTESTINAL METAPLASIA. Electronically Signed Manjula Navarro M.D. Gross Description Received in formalin, labeled "biopsy stomach" are 3 lindo, irregular portions of soft tissue ranging from 0.2-0.5 cm. in greatest dimension. The specimens are submitted in toto in one cassette. /03/04/201903/04/2019
--- NOTE | 2019-03-05 18:47 | DS ---
Physical Exam: SUBJECTIVE: Patient seen and examined in the morning. No acute events overnight. No complaints of chest pain, no shortness of breath, no abdominal pain.d OBJECTIVE: Vital Signs Period Temp Pulse Resp BP Sys/Verdugo Pulse Ox Last 24 Hr 97.7 F-98.9 F 71-100 20-20 128-155/70-81 98-98 PHYSICAL EXAM GENERAL: The patient is alert and oriented to person, place, and time, responsive and cooperative HEAD: Normal with no signs of trauma. EYES: DANIELITO, EOMI NECK: Trachea midline LUNGS: Breath sounds equal, clear to auscultation bilaterally, no wheezes, no crackles HEART: RRR, no murmurs or rubs ABDOMEN: Soft, nontender, nondistended, normoactive bowel sounds, no guarding, no rebound, no masses. EXTREMITIES: 2+ pulses, warm, well-perfused, no edema. NEUROLOGICAL: Motor 4/5 on right, 5/5 on left. Sensations intact B/L LABS Laboratory Results - last 24 hr 03/04/19 03/05/19 03/05/19 21:39 06:18 06:40 WBC RBC Hgb Hct MCV MCH MCHC RDW Plt Count MPV Absolute Neuts (auto) Neutrophils % Lymphocytes % Monocytes % Eosinophils % Basophils % Nucleated RBC % Sodium 134 L Potassium 4.3 Chloride 100 Carbon Dioxide 28 Anion Gap 7 L BUN 19.7 H Creatinine 1.3 Est GFR (CKD-EPI)AfAm 65.44 Est GFR (CKD-EPI)NonAf 56.46 POC Glucometer 150 137 Random Glucose 127 H Calcium 9.4 Total Bilirubin 0.7 AST 18 ALT 32 Alkaline Phosphatase 70 Total Protein 5.8 L Albumin 2.1 L 03/05/19 03/05/19 03/05/19 06:40 11:19 16:37 WBC 5.3 RBC 3.70 L Hgb 11.7 Hct 34.1 L MCV 92.3 MCH 31.6 MCHC 34.2 RDW 13.9 Plt Count 272 MPV 8.8 Absolute Neuts (auto) 4.0 Neutrophils % 76.0 Lymphocytes % 11.8 D Monocytes % 7.9 Eosinophils % 3.3 Basophils % 1.0 Nucleated RBC % 0 Sodium Potassium Chloride Carbon Dioxide Anion Gap BUN Creatinine Est GFR (CKD-EPI)AfAm Est GFR (CKD-EPI)NonAf POC Glucometer 169 121 Random Glucose Calcium Total Bilirubin AST ALT Alkaline Phosphatase Total Protein Albumin HOSPITAL COURSE: Date of Admission:02/16/19 Date of Discharge: 03/05/19 68 M with PMH of DM, HTN, HLD, CKD, obesity, bipolar disorder, depression, and anxiety, who was brought to ED after being found down on the floor by brother with AMS. Patient was intubated on 2nd day of admission and was found to be hypercapnic. Patient was intubated for 4 days, and found to have b/l pneumonia. Was treated with empiric zoysn IV and augmentin PO. Patient finish antibiotic course. Patient was found to be in altered mental status, which was likely a toxic metabolic encephalopthy. Patient was initially DKA which resolved. MRI and CT head was negative. Patient slowly recovered mentation, and was restarted on psych medications. Endocrinology was consulted, who recommended starting patient on insulin after PO intake recovered. Patient was on sliding scale while in hospital. Patient had coffee ground emesis while in ICU, had endoscopy which showed ulcer and severe gastritits. Patient was started on Protonix 40 mg IV BID. Patient was found to be in Afib on admission, was started on Cardizem 30 mg TID PRN. Patient was started on Eliquis 5 mg PO BID, and was rate controlled from sinus rhythm. Patient initially had SMITA, had hemodialysis 4 times, and afterwards BUN and Creatinine recovered. Patient had wounds on his right hip and left leg, which was debrided, and will use santyl cream on wounds. Patient was continued on his home pain medications. Patient was determined to need acute rehab, was accepted to [facility]. Imaging this Admission: Chest X-Ray 02/16/19: A single AP view of the chest reveals a weak inspiration with rotation to the right, wide mediastinum and some atelectatic changes at the right base. There are degenerative spine changes. A gross rib fracture is not seen. The soft tissues are intact. Correlation recommended. CT Head: Moderate atrophy. No gross acute intracranial pathology is identified. The calvarium is intact. Chronic sinusitis with possible fungal infection CT Spine: The alignment is satisfactory. No gross fracture or subluxation is seen. No jumped facets are identified Chest X-ray 02/18/19: Single AP view of the pelvis reveals no sign of fracture or subluxation and no sign of blastic or lytic changes. The SI joints are patent. There is a nonspecific bowel pattern. If the patient has any limitation of motion or persistent pain then further imaging with CT and orthopedic consultation may be of help. Please note the left hip is rotated. Correlation recommended. Carotid Doppler: There is a [id number] size soft plaque at the right common carotid bifurcation/bulb as well as intimal thickening and minimal plaque buildup on the left without evidence of hemodynamically significant stenosis, bilaterally. Renal U/S: Unremarkable examination. Brain MRI: Age-related involutional changes. Normal signal intensity of the brain parenchyma. There is no evidence of abnormal restricted diffusion in the brain to suggest acute or subacute infarction. 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 When you came to the hospital you were very confused and tired. We were concerned that you would not be able to keep breathing on your own so we had to intubate you and kept you on a ventilator for 5 days. You have been able to breathe regularly after removed the breathing tube. You were found to be in atrial fibrillation (irregular heartbeat) when you arrived to the hospital. We used medication to bring your heart rate under control and it has been stable since. You have been confused since arriving to the hospital. You needed to have hemodialysis performed 3 times, but did not need it any more. Your kidneys had significant damage, please try to avoid ibuprofen for pain management. Your kidney function has stabilized, but you will need to follow up with the clinical biochemist (kidney doctor) as an outpatient. We noticed you had wounds on your hip and knee and you had surgical debridement of your wounds. You were also vomiting dried up blood while here, so we had the thermospray operator perform an endoscopy. They took a biopsy during endoscopy, so you will follow up with the thermospray operator for results. You were initially in diabetic ketoacidosis when you arrived to the hospital, which means your diabetes was not well under control. We have kept it under control while in the hospital, but please be aware of your food intake and follow your insulin instructions. You have had right sided weakness, which has slowly been improving. You will need acute rehabilitation in order to return to the your functional status before coming to the hospital. MEDICATIONS We have made the following adjustments to your medication regimen: Please STOP taking Losartan-Hydrochlorothiazide 100-12.5 mg. Please STOP taking Toujeo 95U for now. Please START Eliquis 5 mg twice a day by mouth. Please START Cardizem 30 mg three times a day by mouth. Please START Losartan 50 mg one a day by mouth. Please START Protonix 40 mg twice a day by mouth. Please START taking sliding scale insulin per facility protocol. You will need close follow up with an estimator as an outpatient. Your insulin Toujeo can be gradually resumed at the rehab based on your blood sugar readings. Please discuss with rehab MD and estimator Dr. De La O in 1 week. resume seroquel at lower dose 100 mg at night time for now and titrate up as needed per your doctor. Continue your other medications as directed. CAUTION WITH YOUR HOME PSYCHIATRIC MEDICATIONS AND CLOSE FOLLOW UP WITH YOUR PSYCHIATRIST OUTPATIENT. AVOID ANY NSAIDS SUCH AT MOTRIN, IBUPROFEN, TORADOL ETC. FOLLOW UP Blood work CBC, BMP in 3-5 days at the rehab. Please follow up with your primary care physician within 1 week. If you do not have one, you may make an appointment at the residency clinic at [facility]. Please follow up with your thermospray operator (stomach doctor), Dr. Posada, within 1 week. They will have the results of the endoscopy for you. Please follow up with your estimator, Dr. De La O, within 1 week for management of your blood sugars. Please follow up with your neurologist, Dr. Barrera within 1 week as an outpatient. Please follow up with your youth services specialist, Dr. Vázquez within 1 week as an outpatient. Please follow up with your psychiatrist, Dr. Navarro within 1 week as an outpatient. Please follow up with your clinical biochemist, Dr. Beaver, within 1 week as an outpatient. PENDING RESULTS: Your endoscopy biopsy results are currently pending, which will need to be followed up in 1 week with your doctor or thermospray operator. SPECIAL INSTRUCTIONS For the wound on your left knee and right hip, please apply Santyl daily to the affected area on your right hip and left knee. If you notice any new fevers, chills, decreased urination, change in mental status, more pain or concerns, please call 911 or come to the ED. Referrals: Steve Navarro MD [Other] - 1 Week [facility] [place] [Provider Group] - 1 Week Bryan Posada DO [Staff Physician] - 1 Week Andi Vázquez MD [Staff Physician] - 1 Week Stu Barrera MD [Staff Physician] - 1 Week Eddie De La O MD [Staff Physician] - 1 Week Wei Beaver MD [Staff Physician] - 1 Week Disposition: RESIDENTIAL FACILITY - Home Medications Comprehensive Discharge Medication List: Ambulatory Orders Amlodipine Besylate 10 mg PO DAILY 02/17/19 Lamotrigine 100 mg DAILY 02/17/19 Fenofibrate 40 mg PO DAILY 02/26/19 Tramadol HCl 50 mg PO PRN 02/26/19 Duloxetine HCl [Cymbalta -] 60 mg PO DAILY 03/02/19 Hilmar-3 Acid Ethyl Esters [Lovaza -] 4,000 mg PO DAILY 03/02/19 Allopurinol [Zyloprim -] 100 mg PO DAILY #30 tab 03/05/19 Apixaban [Eliquis -] 5 mg PO BID tablet 03/05/19 Clotrimazole [Lotrimin -] 1 applic TP BID tube 03/05/19 Collagenase Clostridium Hist. [Santyl -] 1 applic TP DAILY tube 03/05/19 Diazepam [Valium] 5 mg PO BID PRN #10 tab MDD 10 mg 03/05/19 Diltiazem [Cardizem -] 30 mg PO TID tablet 03/05/19 Insulin Sliding Scale [Novolog Vial Sliding Scale -] 1 vial SQ ACHS units 03/05 Losartan Potassium [Cozaar -] 50 mg PO DAILY tablet 03/05/19 Pantoprazole Sodium [Protonix -] 40 mg PO BID tablet.ec 03/05/19 Quetiapine Fumarate [Seroquel -] 100 mg PO HS #15 tablet 03/05/19 This patient is new to me today: Yes Date on this admission: 03/05/19 Emergency Visit: No Critical Care patient: No - Discharge Referral Referred to [facility] Med P.C.: No ATTENDING PHYSICIAN STATEMENT I saw and evaluated the patient. I reviewed the resident's note and discussed the case with the resident. I agree with the resident's findings and plan as documented. SUBJECTIVE: OBJECTIVE: ASSESSMENT AND PLAN:
--- NOTE | 2019-03-05 19:02 | PN ---
Progress Note, Physician History of Present Illness: Pt seen and examined at bedside earlier today. He denies shortness of breath. - Current Medication List Current Medications: Active Medications Apixaban (Eliquis -) 5 mg PO BID [facility] Last Admin: 03/05/19 10:09 Dose: 5 mg Clotrimazole (Lotrimin 1% Cream -) 1 applic TP BID [facility] Last Admin: 03/05/19 10:09 Dose: 1 applic Collagenase (Santyl -) 1 applic TP DAILY [facility]; Protocol Last Admin: 03/05/19 10:10 Dose: 1 applic Diltiazem HCl (Cardizem Cd -) 120 mg PO DAILY [facility] Duloxetine HCl (Cymbalta -) 60 mg PO DAILY [facility] Last Admin: 03/05/19 10:08 Dose: 60 mg Insulin Aspart (Novolog Vial Sliding Scale -) 1 vial SQ ACHS [facility]; Protocol Last Admin: 03/05/19 17:52 Dose: Not Given Lamotrigine (Lamictal -) 100 mg PO DAILY [facility] Last Admin: 03/05/19 10:09 Dose: 100 mg Losartan Potassium (Cozaar -) 50 mg PO DAILY [facility] Last Admin: 03/05/19 10:08 Dose: 50 mg Pantoprazole Sodium (Protonix -) 40 mg PO BID [facility] Last Admin: 03/05/19 10:08 Dose: 40 mg Tramadol HCl (Ultram -) 100 mg PO Q6H PRN PRN Reason: PAIN LEVEL 7 - 10 Last Admin: 03/05/19 10:08 Dose: 100 mg - Objective Vital Signs: Vital Signs Temperature 98.3 F 03/05/19 13:24 Pulse Rate 79 03/05/19 13:24 Respiratory Rate 20 03/05/19 13:24 Blood Pressure 142/81 03/05/19 13:24 O2 Sat by Pulse Oximetry (%) 98 03/05/19 10:00 Constitutional: Yes: Calm Eyes: Yes: Conjunctiva Clear HENT: Yes: Atraumatic Neck: Yes: Supple Cardiovascular: Yes: S1, S2 Respiratory: Yes: CTA Bilaterally Gastrointestinal: Yes: Soft Musculoskeletal: Yes: WNL Edema: No Neurological: Yes: Oriented Psychiatric: Yes: Oriented Labs: CBC, BMP 03/05/19 06:40 03/05/19 06:40 INR, PTT INR 1.14 (0.83-1.09) H 03/02/19 06:10 Assessment/Plan Current Medications Generic Name Dose Route Start Last Admin Trade Name Freq PRN Reason Stop Dose Admin Apixaban 5 mg 03/03/19 22:00 03/05/19 10:09 Eliquis - PO 5 mg BID TAVARES Administration Clotrimazole 1 applic 02/26/19 10:00 03/05/19 10:09 Lotrimin 1% Cream - TP 1 applic BID TAVARES Administration Collagenase 1 applic 02/25/19 15:15 03/05/19 10:10 Santyl - TP 1 applic DAILY TAVARES Administration Protocol Diltiazem HCl 120 mg 03/06/19 10:00 Cardizem Cd - PO DAILY TAVARES Duloxetine HCl 60 mg 03/05/19 10:00 03/05/19 10:08 Cymbalta - PO 60 mg DAILY TAVARES Administration Insulin Aspart 1 vial 02/26/19 07:00 03/05/19 17:52 Novolog Vial Sliding Scale - SQ Not Given ACHS TAVARES Protocol Lamotrigine 100 mg 02/26/19 10:00 03/05/19 10:09 Lamictal - PO 100 mg DAILY TAVARES Administration Losartan Potassium 50 mg 02/28/19 12:00 03/05/19 10:08 Cozaar - PO 50 mg DAILY TAVARES Administration Pantoprazole Sodium 40 mg 03/03/19 22:00 03/05/19 10:08 Protonix - PO 40 mg BID TAVARES Administration Tramadol HCl 100 mg 03/02/19 10:08 03/05/19 10:08 Ultram - PO 100 mg Q6H PRN Administration PAIN LEVEL 7 - 10 Impression 1. SMITA 2. rhabdo 3. dka 4. altered mental status 5. hyperkalemia 6. resp failure Plan - will need outpt follow up - monitor lytes - follow repeat ua - can see in office - follow pth
[2019-03-06] MEDS: INSULIN SLIDING SCALE (NOVOLOG) 1 VIAL SQ SCH ×2 (06:00→12:06)
--- NOTE | 2019-03-06 08:31 | PN ---
Progress Note (short form) - Note Progress Note: Neurology CHIEF COMPLAINT: CVA HISTORY OF PRESENT ILLNESS: Mr. Burnette is a 68 y/o man with a pmhx of kidney disease, DM, HTN, HLD, obesity, bipolar disorder, depression, and anxiety who is BIBA after being found down in his apt for an unknown period of time. History obtained from chart as pt was confused on exam and was unable to answer questions. Per the patient's brother, the pt had an appointment with a friend I gave admission and when he did not show up the pt's friend called the police to do a wellness check (the pt did not name the friend). Police found the pt down in his apartment and he was brought to the hospital by EMS, unclear how long the pt was down for. I was contacted by the emergency department for further evaluation as the patient demonstrated an NIH stroke scale of 14. Time of onset was unknown and additionally patient with generalized confusion and weakness more so than just focal deficits and therefore concern for possible underlying toxic metabolic, infectious, diffuse process. CT head without acute changes but there was multiple metabolic derangements on lab work. White blood cell count was 12 on admission. BUN/creatinine was 252//6.2 on admission. WBC, BUN/Cr. trending down. Lastly, blood glucose was 329 on admission, being optimized. Carotid Doppler completed, small-moderate size soft plaque at the right common carotid bifurcation with intimal thickening and minimal plaque buildup on the left without evidence of hemodynamically significant stenosis bilaterally. Brain MRI without acute changes. Patient patient intubated on 02/18 , patient extubated on 02/23. Underlying derangements improving and receiving continued optimization. Repeat head ct compeleted 02/20 - moderate atrophy without gross acute intracranial pathology, chronic sinusitis and right mastoid effusion. Awake, alert and conversant. Plan is for discharge and neurologically stable a this time. Active Medications Apixaban (Eliquis -) 5 mg PO BID [facility] Last Admin: 03/05/19 21:16 Dose: 5 mg Clotrimazole (Lotrimin 1% Cream -) 1 applic TP BID TAVARES Last Admin: 03/05/19 21:16 Dose: 1 applic Collagenase (Santyl -) 1 applic TP DAILY [facility]; Protocol Last Admin: 03/05/19 10:10 Dose: 1 applic Diltiazem HCl (Cardizem Cd -) 120 mg PO DAILY [facility] Duloxetine HCl (Cymbalta -) 60 mg PO DAILY [facility] Last Admin: 03/05/19 10:08 Dose: 60 mg Insulin Aspart (Novolog Vial Sliding Scale -) 1 vial SQ ACHS [facility]; Protocol Last Admin: 03/06/19 06:00 Dose: Not Given Lamotrigine (Lamictal -) 100 mg PO DAILY [facility] Last Admin: 03/05/19 10:09 Dose: 100 mg Losartan Potassium (Cozaar -) 50 mg PO DAILY [facility] Last Admin: 03/05/19 10:08 Dose: 50 mg Pantoprazole Sodium (Protonix -) 40 mg PO BID [facility] Last Admin: 03/05/19 21:16 Dose: 40 mg Tramadol HCl (Ultram -) 100 mg PO Q6H PRN PRN Reason: PAIN LEVEL 7 - 10 Last Admin: 03/05/19 21:25 Dose: 100 mg PHYSICAL EXAMINATION Vital Signs Period Temp Pulse Resp BP Sys/Verdugo Pulse Ox Last 24 Hr 97.9 F-98.7 F 74-100 20-20 140-155/70-81 97-98 GENERAL: intubated and sedated HEAD: Normal with no signs of trauma. EYES: Pupils equal, round and reactive to light, extraocular movements intact, sclera anicteric, conjunctiva clear. No lid lag. LUNGS: Breath sounds equal, HEART: Regular rate irregularly irregular rhythm, normal S1 and S2 without murmur. ABDOMEN: Soft, not distended, normoactive bowel sounds, skin breakdown on R side of abdomen with sloughing wounds and ecchymosis, very TTP, guarding, no rebound, no masses, reducible umbilical hernia. UPPER EXTREMITIES: 2+ pulses, warm, well-perfused. No cyanosis. No clubbing. No peripheral edema. Cuts on bilateral elbows LOWER EXTREMITIES: 2+ pulses, warm, well-perfused. No calf tenderness. No peripheral edema. NEUROLOGICAL: intuabted, response to voice, not moving extremities to command, response to pain PSYCHIATRIC: Cooperative. poor eye contact. SKIN: +pressure ulcer to the right hip, skin breakdown to the right side of the abdomen, Abrasions to the right side of the face. Warm and dry. CBCD WBC 5.3 K/mm3 (4.0-10.0) 03/05/19 06:40 RBC 3.70 M/mm3 (4.00-5.60) L 03/05/19 06:40 Hgb 11.7 GM/dL (11.7-16.9) 03/05/19 06:40 Hct 34.1 % (35.4-49) L 03/05/19 06:40 MCV 92.3 fl (80-96) 03/05/19 06:40 MCHC 34.2 g/dl (32.0-35.9) 03/05/19 06:40 RDW 13.9 % (11.9-15.9) 03/05/19 06:40 Plt Count 272 K/MM3 (134-434) 03/05/19 06:40 MPV 8.8 fl (7.5-11.1) 03/05/19 06:40 CMP Sodium 134 mmol/L (136-145) L 03/05/19 06:40 Potassium 4.3 mmol/L (3.5-5.1) 03/05/19 06:40 Chloride 100 mmol/L (98-107) 03/05/19 06:40 Carbon Dioxide 28 mmol/L (21-32) 03/05/19 06:40 Anion Gap 7 MMOL/L (8-16) L 03/05/19 06:40 BUN 19.7 mg/dL (7-18) H 03/05/19 06:40 Creatinine 1.3 mg/dL (0.55-1.3) 03/05/19 06:40 Random Glucose 127 mg/dL (74-106) H 03/05/19 06:40 Calcium 9.4 mg/dL (8.5-10.1) 03/05/19 06:40 Total Bilirubin 0.7 mg/dL (0.2-1) 03/05/19 06:40 AST 18 U/L (15-37) 03/05/19 06:40 ALT 32 U/L (13-61) 03/05/19 06:40 Alkaline Phosphatase 70 U/L (45-117) 03/05/19 06:40 Total Protein 5.8 g/dl (6.4-8.2) L 03/05/19 06:40 Albumin 2.1 g/dl (3.4-5.0) L 03/05/19 06:40 CARDIAC ENZYMES Creatine Kinase 33 U/L (26-308) 03/01/19 07:50 Troponin I 0.04 ng/ml (0.00-0.05) 02/17/19 16:15 ASSESSMENT/PLAN: Mr. Burnette is a 68 y/o man with a pmhx of kidney disease, DM, HTN, HLD, obesity , bipolar disorder, depression, and anxiety who is BIBA after being found down in his apt for an unknown period of time. History obtained from chart as pt was confused on exam and was unable to answer questions. Per the patient's brother, the pt had an appointment with a friend I gave admission and when he did not show up the pt's friend called the police to do a wellness check (the pt did not name the friend). Police found the pt down in his apartment and he was brought to the hospital by EMS, unclear how long the pt was down for. I was contacted by the emergency department for further evaluation as the patient demonstrated an NIH stroke scale of 14. Time of onset was unknown and additionally patient with generalized confusion and weakness more so than just focal deficits and therefore concern for possible underlying toxic metabolic, infectious, diffuse process. CT head without acute changes but there was multiple metabolic derangements on lab work. White blood cell count was 12 on admission. BUN/creatinine was 252//6.2 on admission. WBC, BUN/Cr. trending down. Lastly, blood glucose was 329 on admission, being optimized. Carotid Doppler completed, small-moderate size soft plaque at the right common carotid bifurcation with intimal thickening and minimal plaque buildup on the left without evidence of hemodynamically significant stenosis bilaterally. Brain MRI without acute changes. Patient patient intubated on 02/18, patient extubated on 02/23. Underlying derangements improving and receiving continued optimization. Repeat head ct compeleted 02/20 - moderate atrophy without gross acute intracranial pathology, chronic sinusitis and right mastoid effusion. Awake, alert and conversant this morning. Having ongoing medical optimization including now on Augmentin as antibiotic, requires physical therapy and possible placement. Upper GI bleed evaluation and management also occurring. Diabetic ketoacidosis, monitor glucose, maintain euglycemic range. Monitor electrolytes, follow-up recommendations from nephrology, IV hydration as tolerated, derangements improved. Monitor blood pressure, maintain less than 140/90. Continue management optimization of potential for GI bleed. Antibiotics as per primary team, dispo and placement as per case management. Please have patient follow up as outpatient for cognitive evaluation. Neurologically, seems to be at baseline, can follow up as outpatient, should have psychiatric follow-up as well.
--- NOTE | 2019-03-06 08:53 | PN ---
Progress Note (short form) - Note Progress Note: Neurology CHIEF COMPLAINT: CVA HISTORY OF PRESENT ILLNESS: Mr. Burnette is a 68 y/o man with a pmhx of kidney disease, DM, HTN, HLD, obesity, bipolar disorder, depression, and anxiety who is BIBA after being found down in his apt for an unknown period of time. History obtained from chart as pt was confused on exam and was unable to answer questions. Per the patient's brother, the pt had an appointment with a friend I gave admission and when he did not show up the pt's friend called the police to do a wellness check (the pt did not name the friend). Police found the pt down in his apartment and he was brought to the hospital by EMS, unclear how long the pt was down for. I was contacted by the emergency department for further evaluation as the patient demonstrated an NIH stroke scale of 14. Time of onset was unknown and additionally patient with generalized confusion and weakness more so than just focal deficits and therefore concern for possible underlying toxic metabolic, infectious, diffuse process. CT head without acute changes but there was multiple metabolic derangements on lab work. White blood cell count was 12 on admission. BUN/creatinine was 252//6.2 on admission. WBC, BUN/Cr. trending down. Lastly, blood glucose was 329 on admission, being optimized. Carotid Doppler completed, small-moderate size soft plaque at the right common carotid bifurcation with intimal thickening and minimal plaque buildup on the left without evidence of hemodynamically significant stenosis bilaterally. Brain MRI without acute changes. Patient patient intubated on 02/18 , patient extubated on 02/23. Underlying derangements improving and receiving continued optimization. Repeat head ct compeleted 02/20 - moderate atrophy without gross acute intracranial pathology, chronic sinusitis and right mastoid effusion. Awake, alert and conversant this morning. Neurologically, seems to be at baseline, nephrology note reviewed and recommended outpatient follow-up. No new neurological events overnight Active Medications Apixaban (Eliquis -) 5 mg PO BID [facility] Last Admin: 03/05/19 21:16 Dose: 5 mg Clotrimazole (Lotrimin 1% Cream -) 1 applic TP BID [facility] Last Admin: 03/05/19 21:16 Dose: 1 applic Collagenase (Santyl -) 1 applic TP DAILY [facility]; Protocol Last Admin: 12/04/19 10:10 Dose: 1 applic Diltiazem HCl (Cardizem Cd -) 120 mg PO DAILY [facility] Duloxetine HCl (Cymbalta -) 60 mg PO DAILY [facility] Last Admin: 03/05/19 10:08 Dose: 60 mg Insulin Aspart (Novolog Vial Sliding Scale -) 1 vial SQ [facility]; Protocol Last Admin: 03/06/19 06:00 Dose: Not Given Lamotrigine (Lamictal -) 100 mg PO DAILY [facility] Last Admin: 03/05/19 10:09 Dose: 100 mg Losartan Potassium (Cozaar -) 50 mg PO DAILY [facility] Last Admin: 03/05/19 10:08 Dose: 50 mg Pantoprazole Sodium (Protonix -) 40 mg PO BID [facility] Last Admin: 03/05/19 21:16 Dose: 40 mg Tramadol HCl (Ultram -) 100 mg PO Q6H PRN PRN Reason: PAIN LEVEL 7 - 10 Last Admin: 03/05/19 21:25 Dose: 100 mg PHYSICAL EXAMINATION Vital Signs Period Temp Pulse Resp BP Sys/Verdugo Pulse Ox Last 24 Hr 97.9 F-98.7 F 74-100 20-20 140-155/70-81 97-98 GENERAL: intubated and sedated HEAD: Normal with no signs of trauma. EYES: Pupils equal, round and reactive to light, extraocular movements intact, sclera anicteric, conjunctiva clear. No lid lag. LUNGS: Breath sounds equal, HEART: Regular rate irregularly irregular rhythm, normal S1 and S2 without murmur. ABDOMEN: Soft, not distended, normoactive bowel sounds, skin breakdown on R side of abdomen with sloughing wounds and ecchymosis, very TTP, guarding, no rebound, no masses, reducible umbilical hernia. UPPER EXTREMITIES: 2+ pulses, warm, well-perfused. No cyanosis. No clubbing. No peripheral edema. Cuts on bilateral elbows LOWER EXTREMITIES: 2+ pulses, warm, well-perfused. No calf tenderness. No peripheral edema. NEUROLOGICAL: intuabted, response to voice, not moving extremities to command, response to pain PSYCHIATRIC: Cooperative. poor eye contact. SKIN: +pressure ulcer to the right hip, skin breakdown to the right side of the abdomen, Abrasions to the right side of the face. Warm and dry. CBCD WBC 5.3 K/mm3 (4.0-10.0) 03/05/19 06:40 RBC 3.70 M/mm3 (4.00-5.60) L 03/05/19 06:40 Hgb 11.7 GM/dL (11.7-16.9) 03/05/19 06:40 Hct 34.1 % (35.4-49) L 03/05/19 06:40 MCV 92.3 fl (80-96) 03/05/19 06:40 MCHC 34.2 g/dl (32.0-35.9) 03/05/19 06:40 RDW 13.9 % (11.9-15.9) 03/05/19 06:40 Plt Count 272 K/MM3 (134-434) 03/05/19 06:40 MPV 8.8 fl (7.5-11.1) 03/05/19 06:40 CMP Sodium 134 mmol/L (136-145) L 03/05/19 06:40 Potassium 4.3 mmol/L (3.5-5.1) 03/05/19 06:40 Chloride 100 mmol/L (98-107) 03/05/19 06:40 Carbon Dioxide 28 mmol/L (21-32) 03/05/19 06:40 Anion Gap 7 MMOL/L (8-16) L 03/05/19 06:40 BUN 19.7 mg/dL (7-18) H 03/05/19 06:40 Creatinine 1.3 mg/dL (0.55-1.3) 03/05/19 06:40 Random Glucose 127 mg/dL (74-106) H 03/05/19 06:40 Calcium 9.4 mg/dL (8.5-10.1) 03/05/19 06:40 Total Bilirubin 0.7 mg/dL (0.2-1) 03/05/19 06:40 AST 18 U/L (15-37) 03/05/19 06:40 ALT 32 U/L (13-61) 03/05/19 06:40 Alkaline Phosphatase 70 U/L (45-117) 03/05/19 06:40 Total Protein 5.8 g/dl (6.4-8.2) L 03/05/19 06:40 Albumin 2.1 g/dl (3.4-5.0) L 03/05/19 06:40 CARDIAC ENZYMES Creatine Kinase 33 U/L (26-308) 03/01/19 07:50 Troponin I 0.04 ng/ml (0.00-0.05) 02/17/19 16:15 ASSESSMENT/PLAN: Mr. Burnette is a 68 y/o man with a pmhx of kidney disease, DM, HTN, HLD, obesity , bipolar disorder, depression, and anxiety who is BIBA after being found down in his apt for an unknown period of time. History obtained from chart as pt was confused on exam and was unable to answer questions. Per the patient's brother, the pt had an appointment with a friend I gave admission and when he did not show up the pt's friend called the police to do a wellness check (the pt did not name the friend). Police found the pt down in his apartment and he was brought to the hospital by EMS, unclear how long the pt was down for. I was contacted by the emergency department for further evaluation as the patient demonstrated an NIH stroke scale of 14. Time of onset was unknown and additionally patient with generalized confusion and weakness more so than just focal deficits and therefore concern for possible underlying toxic metabolic, infectious, diffuse process. CT head without acute changes but there was multiple metabolic derangements on lab work. White blood cell count was 12 on admission. BUN/creatinine was 252//6.2 on admission. WBC, BUN/Cr. trending down. Lastly, blood glucose was 329 on admission, being optimized. Carotid Doppler completed, small-moderate size soft plaque at the right common carotid bifurcation with intimal thickening and minimal plaque buildup on the left without evidence of hemodynamically significant stenosis bilaterally. Brain MRI without acute changes. Patient patient intubated on 02/18, patient extubated on 02/23. Underlying derangements improving and receiving continued optimization. Repeat head ct compeleted 02/20 - moderate atrophy without gross acute intracranial pathology, chronic sinusitis and right mastoid effusion. Awake, alert and conversant this morning. Having ongoing medical optimization including now on Augmentin as antibiotic, requires physical therapy and possible placement. Upper GI bleed evaluation and management also occurring. Diabetic ketoacidosis, monitor glucose, maintain euglycemic range. Monitor electrolytes, follow-up recommendations from nephrology, IV hydration as tolerated, derangements improved. Monitor blood pressure, maintain less than 140/90. Continue management optimization of potential for GI bleed. Antibiotics as per primary team, dispo and placement as per case management. Please have patient follow up as outpatient for cognitive evaluation. Neurologically, seems to be at baseline, nephrology note reviewed and recommended outpatient follow-up. No new neurological events overnight, discharge planning as per primary team.
[2019-03-06] MEDS: CLOTRIMAZOLE 1% CREAM 15 GM TUBE TP SCH (09:30)
[2019-03-06] MEDS: COLLAGENASE CLOSTRIDIUM HIST. 30 GRAMS TUBE TP SCH (09:30)
[2019-03-06] MEDS: DULoxetine HCL 30 MG CAPSULE.DR PO SCH (09:30)
[2019-03-06] MEDS: PANTOPRAZOLE 40 MG TABLET (FP) PO SCH (09:30)
[2019-03-06] MEDS: LOSARTAN POTASSIUM 50 MG TABLET (FP) PO SCH (09:30)
[2019-03-06] MEDS: APIXABAN 5 MG TABLET PO SCH (09:30)
[2019-03-06] MEDS: lamoTRIgine 100 MG TABLET (FP) PO SCH (09:30)
[2019-03-06] MEDS: traMADol HCL 50 MG TABLET PO PRN (09:33)
[2019-03-06 10:13] VITALS: BP 155/83; PULSE 90; TEMP 98.3
--- NOTE | 2019-03-06 11:26 | PN ---
Progress Note (short form) - Note Progress Note: PULMONARY No shortness of breath, cough or wheezing. Vital Signs Period Temp Pulse Resp BP Sys/Verdugo Pulse Ox Last 24 Hr 98.2 F-98.7 F 74-91 20-20 140-155/70-83 95-97 Gen: NAD at rest Heart: RRR Lung: decreased breath sounds at the bases Abd: soft, nontender Ext: no edema CBC, BMP 03/05/19 06:40 03/05/19 06:40 Active Medications Apixaban (Eliquis -) 5 mg PO BID [facility] Last Admin: 03/06/19 09:30 Dose: 5 mg Clotrimazole (Lotrimin 1% Cream -) 1 applic TP BID [facility] Last Admin: 03/06/19 09:30 Dose: 1 applic Collagenase (Santyl -) 1 applic TP DAILY [facility]; Protocol Last Admin: 03/06/19 09:30 Dose: 1 applic Diltiazem HCl (Cardizem Cd -) 120 mg PO DAILY [facility] Last Admin: 03/06/19 09:30 Dose: 120 mg Duloxetine HCl (Cymbalta -) 60 mg PO DAILY [facility] Last Admin: 03/06/19 09:30 Dose: 60 mg Insulin Aspart (Novolog Vial Sliding Scale -) 1 vial SQ [facility]; Protocol Last Admin: 03/06/19 06:00 Dose: Not Given Lamotrigine (Lamictal -) 100 mg PO DAILY [facility] Last Admin: 03/06/19 09:30 Dose: 100 mg Losartan Potassium (Cozaar -) 50 mg PO DAILY [facility] Last Admin: 03/06/19 09:30 Dose: 50 mg Pantoprazole Sodium (Protonix -) 40 mg PO BID [facility] Last Admin: 03/06/19 09:30 Dose: 40 mg Tramadol HCl (Ultram -) 100 mg PO Q6H PRN PRN Reason: PAIN LEVEL 7 - 10 Last Admin: 03/06/19 09:33 Dose: 100 mg A/P Altered Mental Status/Syncope resolved s/p Acute Respiratory Failure Acute on Chronic Renal Failure requiring HD improving Rhabdomyolysis improved Paroxysmal Atrial Fibrillation HTN Hypercholesterolemia Anemia/Thrombocytopenia Necrotic Decubitus Ulcers s/p Debridement Duodenal Ulcer Anemia - monitor urine output, creatinine - rate control - continue anticoagulation - rehab/PT - DVT/GI prophylaxis - d/c planning in progress
--- NOTE | 2019-03-06 13:45 | PN ---
Progress Note, Physician History of Present Illness: Pt seen and examined at bedside. He is awake and appears comfortable. - Current Medication List Current Medications: Active Medications Apixaban (Eliquis -) 5 mg PO BID [facility] Last Admin: 03/06/19 09:30 Dose: 5 mg Clotrimazole (Lotrimin 1% Cream -) 1 applic TP BID [facility] Last Admin: 03/06/19 09:30 Dose: 1 applic Collagenase (Santyl -) 1 applic TP DAILY [facility]; Protocol Last Admin: 03/06/19 09:30 Dose: 1 applic Diltiazem HCl (Cardizem Cd -) 120 mg PO DAILY [facility] Last Admin: 03/06/19 09:30 Dose: 120 mg Duloxetine HCl (Cymbalta -) 60 mg PO DAILY [facility] Last Admin: 03/06/19 09:30 Dose: 60 mg Insulin Aspart (Novolog Vial Sliding Scale -) 1 vial SQ [facility]; Protocol Last Admin: 03/06/19 12:06 Dose: Not Given Lamotrigine (Lamictal -) 100 mg PO DAILY [facility] Last Admin: 03/06/19 09:30 Dose: 100 mg Losartan Potassium (Cozaar -) 50 mg PO DAILY [facility] Last Admin: 03/06/19 09:30 Dose: 50 mg Pantoprazole Sodium (Protonix -) 40 mg PO BID [facility] Last Admin: 03/06/19 09:30 Dose: 40 mg Tramadol HCl (Ultram -) 100 mg PO Q6H PRN PRN Reason: PAIN LEVEL 7 - 10 Last Admin: 03/06/19 09:33 Dose: 100 mg - Objective Vital Signs: Vital Signs Temperature 98.3 F 03/06/19 09:00 Pulse Rate 90 03/06/19 09:00 Respiratory Rate 20 03/06/19 09:00 Blood Pressure 155/83 03/06/19 09:00 O2 Sat by Pulse Oximetry (%) 95 03/06/19 10:00 Constitutional: Yes: Calm Eyes: Yes: Conjunctiva Clear HENT: Yes: Atraumatic Cardiovascular: Yes: S1, S2 Respiratory: Yes: CTA Bilaterally Gastrointestinal: Yes: Soft Genitourinary: Yes: WNL Edema: No Neurological: Yes: Oriented Psychiatric: Yes: Oriented Labs: CBC, BMP 03/05/19 06:40 03/05/19 06:40 INR, PTT INR 1.14 (0.83-1.09) H 03/02/19 06:10 Assessment/Plan Current Medications Generic Name Dose Route Start Last Admin Trade Name Rufina PRN Reason Stop Dose Admin Apixaban 5 mg 03/03/19 22:00 03/06/19 09:30 Eliquis - PO 5 mg BID [facility] Administration Clotrimazole 1 applic 02/26/19 10:00 03/06/19 09:30 Lotrimin 1% Cream - TP 1 applic BID [facility] Administration Collagenase 1 applic 02/25/19 15:15 03/06/19 09:30 Santyl - TP 1 applic DAILY [facility] Administration Protocol Diltiazem HCl 120 mg 03/06/19 10:00 03/06/19 09:30 Cardizem Cd - PO 120 mg DAILY [facility] Administration Duloxetine HCl 60 mg 03/05/19 10:00 03/06/19 09:30 Cymbalta - PO 60 mg DAILY [facility] Administration Insulin Aspart 1 vial 02/26/19 07:00 03/06/19 12:06 Novolog Vial Sliding Scale - SQ Not Given ACHS [facility] Protocol Lamotrigine 100 mg 02/26/19 10:00 03/06/19 09:30 Lamictal - PO 100 mg DAILY [facility] Administration Losartan Potassium 50 mg 02/28/19 12:00 03/06/19 09:30 Cozaar - PO 50 mg DAILY [facility] Administration Pantoprazole Sodium 40 mg 03/03/19 22:00 03/06/19 09:30 Protonix - PO 40 mg BID [facility] Administration Tramadol HCl 100 mg 03/02/19 10:08 03/06/19 09:33 Ultram - PO 100 mg Q6H PRN Administration PAIN LEVEL 7 - 10 Impression 1. SMITA 2. rhabdo 3. dka 4. altered mental status 5. hyperkalemia 6. resp failure Plan - renal function stabilized - will need outpt follow up - can see in office - pt did not give a repeat ua - follow pth
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
--- NOTE | 2019-03-06 16:24 | PN ---
Physical Exam: SUBJECTIVE: Patient seen and examined in the morning. No acute events overnight. No complaints of chest pain, shortness of breath, nausea, vomiting, abdominal pain, fevers, chills. OBJECTIVE: Vital Signs Period Temp Pulse Resp BP Sys/Verdugo Pulse Ox Last 24 Hr 98.2 F-98.7 F 74-91 20-20 140-155/70-83 95-97 GENERAL: The patient is alert and oriented to person, place, and time, responsive and cooperative HEAD: Normal with no signs of trauma. EYES: DANIELITO, EOMI NECK: Trachea midline LUNGS: Breath sounds equal, clear to auscultation bilaterally, no wheezes, no crackles HEART: RRR, no murmurs or rubs ABDOMEN: Soft, nontender, nondistended, normoactive bowel sounds, no guarding, no rebound, no masses. EXTREMITIES: 2+ pulses, warm, well-perfused, no edema. NEUROLOGICAL: Motor 4/5 on right, 5/5 on left. Sensations intact B/L Laboratory Results - last 24 hr 03/05/19 03/05/19 03/05/19 06:40 16:37 21:18 POC Glucometer 121 153 Calcium 9.4 PTH Intact 21 PTH Intact Intraop 0 m 03/06/19 03/06/19 05:54 11:48 POC Glucometer 134 116 Calcium PTH Intact PTH Intact Intraop 0 m ASSESSMENT/PLAN: 68 M with PMH of DM, HTN, HLD, CKD, obesity, bipolar disorder, depression, and anxiety, who was brought to ED after being found down on the floor by brother with AMS. 1)Acute Hypercapneic Respiratory Failure and Septic Shock secondary to bilateral pneumonia Resolved 2) AMS Resolved 3)Coffee ground emesis Resolved 4) SMITA Resolved 5)New onset Afib -Cardizem CD 120 PO 6) Wounds on lower chest, upper abdomen, hip -S/P Debridement. -Wet to dry dressing 7)History of Bipolar disorder -on home medications 8) Chronic pain in legs -Ultram 50 mg PO P/T D/C to [facility] Visit type - Emergency Visit Emergency Visit: Yes ED Registration Date: 02/16/19 Care time: The patient presented to the Emergency Department on the above date and was hospitalized for further evaluation of their emergent condition. - New Patient This patient is new to me today: No - Critical Care Critical Care patient: No ATTENDING PHYSICIAN STATEMENT I saw and evaluated the patient. I reviewed the resident's note and discussed the case with the resident. I agree with the resident's findings and plan as documented. SUBJECTIVE: OBJECTIVE: ASSESSMENT AND PLAN:
[2019-03-13 16:23] VITALS: BMI 34.2
--- NOTE | 2019-04-02 20:26 | OP ---
DATE OF OPERATION: 02/25/2019 PREOPERATIVE DIAGNOSIS: Left knee and right hip necrotic ulcer. POSTOPERATIVE DIAGNOSIS: Left knee and right hip necrotic ulcer. PROCEDURE: Excisional debridement, left knee and right hip, skin and subcutaneous tissue. FINDINGS: Necrotic eschar sent to pathology. SURGEON: Vance Park M.D. ANESTHESIA: Fractional. BLOOD LOSS: 20 mL. INDICATION: The patient is a 68-year-old male that has a necrotic eschar on his left knee and on his right hip. Patient has been getting sandal placement there for over a week but not getting better. It is thought that he would need excisional debridement. Patient was consented for the procedure understanding all risks, benefits, and alternatives and taken to the operating room. DESCRIPTION OF PROCEDURE: Once in the operating room, patient was laid on the operating table in a supine manner, and the area of the right hip and the left knee were prepped and draped in sterile surgical manner. We then went ahead and injected 15 mL lidocaine 1% over the left knee eschar. We then went ahead and used number [id number] and we were able to incise into the eschar and removed the eschar. Bovie cautery was used to control hemostasis. We then went ahead and injected 10 mL of lidocaine 1% over the right hip necrotic ulcer, and again using a number 15-blade, we were able to excise by incising into the eschar and excising the entire eschar. Bovie cautery was then used to control hemostasis. We then irrigated the wounds copiously used a wet-to-dry dressing was placed on each wound. Patient tolerated the procedure with no complications. Patient was then sent to PACU in stable condition. Total blood loss 50 mL. VANCE PARK DO [id number]
== END 2019-03-06 14:15 | DRG 622 ==
LOC: JER 18:37 → JERBED 21:20 → JICU 02-18 03:08 → J6S 02-26 02:57
PROVIDERS: ADMIT Internal Medicine; ATTEND Hospitalist
PROC: 0BH17EZ Insertion of Endotracheal Airway into Trachea, Via Natural or Artificial Opening (ICD-10-PCS; principal; 2019-02-18)
PROC: 5A1955Z Respiratory Ventilation, Greater than 96 Consecutive Hours (ICD-10-PCS; 2019-02-18)
PROC: 06HN33Z Insertion of Infusion Device into Left Femoral Vein, Percutaneous Approach (ICD-10-PCS; 2019-02-18)
PROC: B51CZZA Fluoroscopy of Left Lower Extremity Veins, Guidance (ICD-10-PCS; 2019-02-18)
PROC: 5A1D70Z Performance of Urinary Filtration, Intermittent, Less than 6 Hours Per Day (ICD-10-PCS; 2019-02-18)
PROC: 5A1D70Z Performance of Urinary Filtration, Intermittent, Less than 6 Hours Per Day (ICD-10-PCS; 2019-02-19)
PROC: 5A1D70Z Performance of Urinary Filtration, Intermittent, Less than 6 Hours Per Day (ICD-10-PCS; 2019-02-21)
PROC: 05HM33Z Insertion of Infusion Device into Right Internal Jugular Vein, Percutaneous Approach (ICD-10-PCS; 2019-02-22)
PROC: B513ZZA Fluoroscopy of Right Jugular Veins, Guidance (ICD-10-PCS; 2019-02-22)
PROC: 5A1D70Z Performance of Urinary Filtration, Intermittent, Less than 6 Hours Per Day (ICD-10-PCS; 2019-02-22)
PROC: 0JBP0ZZ Excision of Left Lower Leg Subcutaneous Tissue and Fascia, Open Approach (ICD-10-PCS; 2019-02-25)
PROC: 0JBC0ZZ Excision of Pelvic Region Subcutaneous Tissue and Fascia, Open Approach (ICD-10-PCS; 2019-02-25)
PROC: 0DB68ZX Excision of Stomach, Via Natural or Artificial Opening Endoscopic, Diagnostic (ICD-10-PCS; 2019-03-03)
DX: E11.10 Type 2 diabetes mellitus with ketoacidosis without coma (principal); G93.41 Metabolic encephalopathy; J96.02 Acute respiratory failure with hypercapnia; A41.89 Other specified sepsis; R65.21 Severe sepsis with septic shock; J69.0 Pneumonitis due to inhalation of food and vomit; K29.01 Acute gastritis with bleeding; K27.0 Acute peptic ulcer, site unspecified, with hemorrhage; N17.9 Acute kidney failure, unspecified; M62.82 Rhabdomyolysis; E87.0 Hyperosmolality and hypernatremia; S21.109A Unspecified open wound of unspecified front wall of thorax without penetration into thoracic cavity, initial encounter; I12.0 Hypertensive chronic kidney disease with stage 5 chronic kidney disease or end stage renal disease; F31.89 Other bipolar disorder; E11.52 Type 2 diabetes mellitus with diabetic peripheral angiopathy with gangrene; I96 Gangrene, not elsewhere classified; F41.8 Other specified anxiety disorders; E78.5 Hyperlipidemia, unspecified; E66.9 Obesity, unspecified; Z68.33 Body mass index [BMI] 33.0-33.9, adult; D72.829 Elevated white blood cell count, unspecified; E86.0 Dehydration; I25.10 Atherosclerotic heart disease of native coronary artery without angina pectoris; E83.51 Hypocalcemia; E87.6 Hypokalemia; E87.8 Other disorders of electrolyte and fluid balance, not elsewhere classified; I48.91 Unspecified atrial fibrillation; E11.65 Type 2 diabetes mellitus with hyperglycemia; R46.0 Very low level of personal hygiene; L89.892 Pressure ulcer of other site, stage 2; L89.109 Pressure ulcer of unspecified part of back, unspecified stage; L89.209 Pressure ulcer of unspecified hip, unspecified stage; I48.0 Paroxysmal atrial fibrillation; R41.82 Altered mental status, unspecified; R55 Syncope and collapse; K20.9 Esophagitis, unspecified; K42.9 Umbilical hernia without obstruction or gangrene; E11.22 Type 2 diabetes mellitus with diabetic chronic kidney disease; Z99.2 Dependence on renal dialysis; E87.5 Hyperkalemia; D69.6 Thrombocytopenia, unspecified; X08.8XXA Exposure to other specified smoke, fire and flames, initial encounter; Y92.098 Other place in other non-institutional residence as the place of occurrence of the external cause; N18.3 Chronic kidney disease, stage 3 (moderate)
CPT/HCPCS: 31500; 36415; 36600; 70450-TC; 70551-TC; 71045-TC-FY; 72125-TC; 72170-TC-FY; 73030-TC-RT-FY; 73060-TC-RT-FY; 73070-TC-RT-FY; 73090-TC-RT-FY; 74018-TC-FY; 74176-TC; 76775-TC; 80048; 80053; 80307; 81003; 82010; 82310; 82436; 82465; 82550; 82553; 82565; 82803; 82962; 83036; 83516; 83520; 83605; 83718; 83721; 83735; 83874; 83930; 83935; 83970; 84100; 84133; 84155; 84165; 84300; 84443; 84478; 84484; 85025; 85027; 85610; 85730; 86038; 86256; 86704; 86706; 86707; 86708; 86709; 86803; 86850; 86900; 86901; 87040; 87070; 87086; 87205; 87340; 87899; 88304-TC; 88305-TC; 90670; 90715; 93005; 93010; 93306-TC; 93880-TC; 94002; 94640; 97116-GP; 97162-GP; 99285-25; G0008; G0009; J0131; J1644; J7030; Q2036

== ENCOUNTER 2022-05-29 10:13 | Observation (INO) | payer OTHER, BC ==
[2022-05-29] MEDS ORDERED: LACTATED RINGERS SOLUTION 1000 ML INFUS.BAG IV ONE (10:53)
[2022-05-29 11:38] LABS: HEMATOCRIT 40.4 % (35.4-49); HEMOGLOBIN 14.1 G/dL (11.7-16.9); MCHC 34.9 g/dl (32.0-35.9); MEAN CELL VOLUME 88.9 fl (80-96); MEAN PLT VOLUME 9.1 fl (7.5-11.1); PLATELET COUNT 170.6 10^3/uL (134-434); RBC 4.55 10^6/uL (4.00-5.60); RDW 14.7 % (11.9-15.9); WHITE BLOOD COUNT 6.4 10^3/uL (4.0-10.8)
[2022-05-29 11:50] LABS: ALBUMIN 3.4 g/dl (3.4-5.0); BILIRUBIN,TOTAL 0.7 mg/dl (0.2-1); CALCIUM 9.7 mg/dl (8.5-10); MAGNESIUM 2.3 mg/dL (1.8-2.4); PHOSPHOROUS 3.9 mg/dl (2.5-4.9)
[2022-05-29] MEDS ORDERED: ACETAMINOPHEN 1000 MG/100 ML BAG IVPB ONE (13:32)
[2022-05-29 13:37] LABS: EPITHELIAL CELLS FEW /hpf
[2022-05-29] MEDS ORDERED: ACETAMINOPHEN INJECTION 100 ML IVPB ONE (13:37)
[2022-05-29] MEDS ORDERED: METHOCARBAMOL 500 MG TABLET PO ONE (15:41)
[2022-05-29] MEDS ORDERED: LIDOCAINE 5% TOPICAL PATCH TP ONE (15:41)
[2022-05-29] MEDS ORDERED: LIDOCAINE 5% TOPICAL PATCH ONE (15:47)
[2022-05-29] MEDS ORDERED: METHOCARBAMOL 500 MG TABLET ONE (15:47)
[2022-05-29 17:45] VITALS: BMI 33.7
[2022-05-29] MEDS: GABAPENTIN 100 MG CAPSULE PO SCH (21:54)
[2022-05-29] MEDS: ATORVASTATIN CA 20 MG TABLET (FP) PO SCH (21:54)
[2022-05-29] MEDS: QUEtiapine FUMARATE 200 MG TABLET PO SCH (21:54)
[2022-05-29] MEDS: INSULIN SLIDING SCALE (NOVOLOG) 1 VIAL SQ SCH (22:06)
[2022-05-30] MEDS: LIDOCAINE PATCH REMOVAL MC SCH ×2 (02:49→21:29)
[2022-05-30] MEDS: INSULIN SLIDING SCALE (NOVOLOG) 1 VIAL SQ SCH ×4 (06:45→21:10)
[2022-05-30] MEDS: GABAPENTIN 100 MG CAPSULE PO SCH ×3 (06:46→21:09)
[2022-05-30 07:54] LABS: CALCIUM 9.5 mg/dl (8.5-10)
[2022-05-30 09:53] LABS: MCH 29.4 pg (25.7-33.7); MCHC 33.3 g/dl (32.0-35.9); MEAN CELL VOLUME 88.2 fl (80-96); MEAN PLT VOLUME 9.6 fl (7.5-11.1); PLATELET COUNT 186 10^3/uL (134-434); RBC 4.42 M/mm3 (4.00-5.60); RDW 15.9 % (11.9-15.9)
[2022-05-30] MEDS: lamoTRIgine 100 MG TABLET PO SCH (09:59)
[2022-05-30] MEDS: ALLOPURINOL 100 MG TABLET (FP) PO SCH (09:59)
[2022-05-30] MEDS: FENOFIBRIC ACID 135 MG CAP PO SCH (09:59)
[2022-05-30] MEDS: APIXABAN 2.5 MG TABLET PO SCH ×2 (09:59→21:09)
[2022-05-30] MEDS: PANTOPRAZOLE 40 MG TABLET PO SCH (09:59)
[2022-05-30] MEDS: DULoxetine HCL 30 MG CAPSULE.DR PO SCH (09:59)
[2022-05-30] MEDS: amLODIPine BESYLATE 10 MG TABLET (FP) PO SCH (10:00)
[2022-05-30] MEDS ORDERED: ESCITALOPRAM OXALATE 20 MG TABLET PO SCH (10:00)
[2022-05-30 13:33] LABS: CHOLESTEROL 197 mg/dl (50-200); HDL CHOLESTEROL 26 mg/dl (40-60)
[2022-05-30 13:37] LABS: LDL CHOLESTEROL (ONLY DFH) 68 mg/dl (5-100); TRIGLYCERIDES 513 mg/dl (0-150)
[2022-05-30] MEDS: INSULIN (LEVEMIR) 100 UNITS/ML UNITS SQ SCH ×2 (14:39→21:10)
[2022-05-30] MEDS: TAMSULOSIN HCL 0.4 MG CAP PO SCH (14:40)
[2022-05-30 19:18] VITALS: RESP 17
[2022-05-30] MEDS: QUEtiapine FUMARATE 200 MG TABLET PO SCH (21:09)
[2022-05-30] MEDS: ATORVASTATIN CA 20 MG TABLET (FP) PO SCH (21:10)
[2022-05-31] MEDS: GABAPENTIN 100 MG CAPSULE PO SCH (06:39)
[2022-05-31] MEDS: INSULIN SLIDING SCALE (NOVOLOG) 1 VIAL SQ SCH ×2 (06:40→11:19)
[2022-05-31] MEDS: TAMSULOSIN HCL 0.4 MG CAP PO SCH (08:31)
[2022-05-31 08:43] LABS: ALBUMIN 2.8 g/dl (3.4-5.0); BILIRUBIN,TOTAL 0.7 mg/dl (0.2-1); CALCIUM 9.3 mg/dl (8.5-10); CREATININE 3.1 mg/dl (0.55-1.3); TOT PROT 5.8 g/dl (6.4-8.2)
[2022-05-31 09:32] VITALS: BP 155/65; PULSE 58; TEMP 98.2
[2022-05-31] MEDS: amLODIPine BESYLATE 10 MG TABLET (FP) PO SCH (09:33)
[2022-05-31] MEDS: FENOFIBRIC ACID 135 MG CAP PO SCH (09:33)
[2022-05-31] MEDS: APIXABAN 2.5 MG TABLET PO SCH (09:33)
[2022-05-31] MEDS: DULoxetine HCL 30 MG CAPSULE.DR PO SCH (09:33)
[2022-05-31] MEDS: ALLOPURINOL 100 MG TABLET (FP) PO SCH (09:34)
[2022-05-31] MEDS: lamoTRIgine 100 MG TABLET PO SCH (09:34)
[2022-05-31] MEDS: INSULIN (LEVEMIR) 100 UNITS/ML UNITS SQ SCH (09:34)
[2022-05-31] MEDS: PANTOPRAZOLE 40 MG TABLET PO SCH (09:34)
[2022-05-31 09:58] LABS: EOS % 4.8 % (0-4.5); HEMATOCRIT 37.2 % (35.4-49); HEMOGLOBIN 12.3 GM/dL (11.7-16.9); LYMPH % 17.4 % (8-40); MCH 29.7 pg (25.7-33.7); MCHC 33.1 g/dl (32.0-35.9); MEAN CELL VOLUME 89.8 fl (80-96); MEAN PLT VOLUME 9.7 fl (7.5-11.1); MONO % 6.8 % (3.8-10.2); PLATELET COUNT 170 10^3/uL (134-434); RBC 4.15 M/mm3 (4.00-5.60); RDW 15.7 % (11.9-15.9); WHITE BLOOD COUNT 4.2 K/mm3 (4.0-10.0)
[2022-05-31] MEDS ORDERED: BACITRACIN ZINC 15 GM TUBE TOPICAL OINTMENT TP SCH (11:15)
== END 2022-05-31 14:02 ==
LOC: FER 10:13 → FM/S 15:07
PROVIDERS: ADMIT Internal Medicine
PROC: 3E033NZ Introduction of Analgesics, Hypnotics, Sedatives into Peripheral Vein, Percutaneous Approach (ICD-10-PCS; principal; 2022-05-29)
PROC: 3E013VG Introduction of Insulin into Subcutaneous Tissue, Percutaneous Approach (ICD-10-PCS; 2022-05-29)
PROC: 3E0337Z Introduction of Electrolytic and Water Balance Substance into Peripheral Vein, Percutaneous Approach (ICD-10-PCS; 2022-05-29)
DX: I13.10 Hypertensive heart and chronic kidney disease without heart failure, with stage 1 through stage 4 chronic kidney disease, or unspecified chronic kidney disease (principal); R29.6 Repeated falls; F31.9 Bipolar disorder, unspecified; I48.0 Paroxysmal atrial fibrillation; R79.9 Abnormal finding of blood chemistry, unspecified; E11.22 Type 2 diabetes mellitus with diabetic chronic kidney disease; N18.9 Chronic kidney disease, unspecified; K21.9 Gastro-esophageal reflux disease without esophagitis; E78.5 Hyperlipidemia, unspecified; W18.39XA Other fall on same level, initial encounter; Y93.89 Activity, other specified; Y92.89 Other specified places as the place of occurrence of the external cause; Z88.8 Allergy status to other drugs, medicaments and biological substances; E66.8 Other obesity; Z68.33 Body mass index [BMI] 33.0-33.9, adult
CPT/HCPCS: 0241U-QW; 36415; 70450-TC; 71045-TC-FY; 72125-TC; 72170-TC-FY; 73562-TC-LT-FY; 73562-TC-RT-FY; 76775-TC; 80048; 80053; 80061; 81003; 81015; 82550; 82607; 82962; 83036; 83735; 84100; 84439; 84443; 84484; 85025; 85027; 87086; 87186; 93005; 93306-TC; 93880-TC; 96361; 96372; 96374; 97116-GP; 97162-GP; 99285-25; G0378

== ENCOUNTER 2023-06-25 13:11 | Emergency (ER) | payer OTHER, BC ==
[2023-06-25 13:47] VITALS: BMI 31.3
[2023-06-25] MEDS ORDERED: ACETAMINOPHEN INJECTION 100 ML IVPB ONE (15:45)
[2023-06-25] MEDS: ACETAMINOPHEN 1000 MG/100 ML BAG IVPB ONE (15:51)
[2023-06-25 15:53] LABS: BASO % 0.9 % (0-2.0); EOS % 3.1 % (0-4.5); HEMATOCRIT 36.6 % (35.4-49); HEMOGLOBIN 12.4 GM/dL (11.7-16.9); LYMPH % 17.2 % (8-40); MCHC 33.8 g/dl (32.0-35.9); MEAN CELL VOLUME 91.6 fl (80-96); MEAN PLT VOLUME 8.5 fl (7.5-11.1); MONO % 11.1 % (3.8-10.2); NEUT % 67.7 % (42.8-82.8); PLATELET COUNT 264 10^3/uL (134-434); RDW 15.5 % (11.9-15.9); WHITE BLOOD COUNT 6.5 K/mm3 (4.0-10.0)
[2023-06-25 16:21] LABS: POTASSIUM 4.3 mmol/L (3.5-5.1)
[2023-06-25 16:23] LABS: CALCIUM 8.8 mg/dL (8.5-10.1)
[2023-06-25 16:24] LABS: ALBUMIN 2.7 g/dl (3.4-5.0); BLOOD UREA NITROGEN 32.4 mg/dL (7-18)
[2023-06-25 16:27] LABS: CREATININE 3.1 mg/dL (0.55-1.3)
[2023-06-25 16:28] LABS: BILIRUBIN,TOTAL 0.5 mg/dL (0.2-1); TOT PROT 5.8 g/dl (6.4-8.2)
[2023-06-26 01:47] VITALS: BP 154/60; PULSE 58; RESP 14; TEMP 97.6
== END 2023-06-26 03:11 | disposition home or self-care (01) ==
LOC: JER 13:11
PROC: 3E030NZ Introduction of Analgesics, Hypnotics, Sedatives into Peripheral Vein, Open Approach (ICD-10-PCS; principal; 2023-06-25)
DX: S70.02XA Contusion of left hip, initial encounter (principal); W19.XXXA Unspecified fall, initial encounter
CPT/HCPCS: 36415; 70450-TC; 71045-TC-FY; 72125-TC; 72170-TC-FY; 80053; 82962; 84484; 85025; 93005; 93010; 96374; 99285-25; J0131